=== PATIENT | male | born 1945 | race Caucasian/White ===

== ENCOUNTER → 2020-02-27 12:36 | Outpatient (CLI) | payer OTHER, SELFPAY ==
[2020-02-28 17:13] LABS: COVID19 Sendout Not Detected (Not Detect)
== END ==
PROVIDERS: Visit Provider Nurse Practitioner
DX: Z11.59 Encounter for screening for other viral diseases (principal)
CPT/HCPCS: 87635

== ENCOUNTER → 2020-03-01 08:37 | Outpatient (CLI) | payer OTHER, SELFPAY ==
--- NOTE | 2020-03-06 16:47 | PM.PFT.1 ---
Pulmonary Function Test Referral & Results Date Patient Seen: 03/01/20 Requesting provider: Patsy Melchor Indication: COPD Results: The spirometry demonstrates an FVC of 3.82 L which is 85% of predicted. The FEV1 was measured at 2.46 L which is 75% of predicted. The FEV1/FVC ratio was 65 which is 88% of predicted. Following the administration of bronchodilator there was no appreciable change. Lung volumes show an SVC of 3.9 L which is 83% of predicted. The diffusing capacity was measured at 19.18 which is 56% of predicted. The maximum voluntary ventilation was reduced Interpretation: This study demonstrates mild/moderate obstructive lung disease based on reduction FEV1. There is no evidence of benefit following bronchodilator administration There is also mild restrictive lung disease based on reduction SVC There is also [id number] reduction in diffusing capacity suggesting element of disease at the capillary alveolar level Clinical correlation suggested
== END ==
PROVIDERS: PCP Internal Medicine; Referring Provider Internal Medicine Cardiovascular Disease; Visit Provider Internal Medicine Cardiovascular Disease
DX: J44.9 Chronic obstructive pulmonary disease, unspecified (principal); Z87.891 Personal history of nicotine dependence
CPT/HCPCS: 94060; 94726; 94729

== ENCOUNTER → 2020-03-04 11:06 | Outpatient (CLI) | payer OTHER, SELFPAY ==
[2020-03-05 13:23] LABS: COVID19 Sendout Not Detected (Not Detect)
== END ==
PROVIDERS: PCP Internal Medicine; Visit Provider Nurse Practitioner
DX: Z11.59 Encounter for screening for other viral diseases (principal)
CPT/HCPCS: 87635

== ENCOUNTER → 2020-03-07 09:30 | Outpatient (CLI) | payer OTHER, SELFPAY ==
--- NOTE | 2020-03-08 04:26 | DI.NM.S_ITS ---
DATE OF SERVICE: 03/07/2020 PROCEDURE: Pharmacologic vasodilator stress and rest myocardial perfusion study with gating to assess ejection fraction and regional wall motion. INDICATIONS: The patient is a 74-year-old male with recent emergency room evaluation for dyspnea who had a positive troponin. REFERRING PROVIDER: Dr. Patsy Melchor CARDIAC STRESS: Per protocol, 0.4 mg of regadenoson was infused, augmented with walking on the treadmill. With this, the patient had a normal hemodynamic response and developed dyspnea but no chest discomfort. His resting ECG showed a right bundle branch block but no obvious Q waves. With exercise, there is accentuation of ST-segment depression in the anterior leads, extending somewhat into the lateral leads with 2 to 2.[address] depression in leads V4 and V5, concerning for myocardial ischemia. He had occasional PACs and PVCs but no complex ectopy. Per protocol, 24.5 mCi of Tc-99m Myoview was injected, and he was imaged 20 minutes later using a gated SPECT acquisition protocol. Earlier in the day, he was injected with 12.8 mCi of Tc-99m Myoview at rest and was imaged 25 minutes later, again using a similar imaging protocol. FINDINGS: 1. Raw Data: There is fair myocardial tracer uptake. There is slight motion noted on the post-stress images. The lung-heart ratio was normal at 0.39 with a normal TID ratio of 1.06. 2. Quantitated gated SPECT: Post-stress ejection fraction is estimated at 52% with moderate hypokinesis of the proximal and mid inferior and inferolateral wall that is less prominent near the apex. There are no other focal wall motion abnormalities. The resting images show a similar contraction pattern, although with some mild improvement in the inferolateral hypokinesis. 3. Post-stress supine images show a moderate perfusion defect throughout the inferior wall, extending into the inferolateral wall in the proximal segments. This defect persists on the prone images but is more localized to the inferolateral segments. The resting images show incomplete improvement in this perfusion defect with substantial reversibility in the mid and distal segments. IMPRESSION: 1. Abnormal myocardial perfusion study. 2. Moderate-sized, predominantly reversible but partially fixed perfusion defect involving the inferior wall and the proximal and mid inferolateral wall consistent with significant myocardial ischemia in the left circumflex distribution. 3. Mildly reduced left ventricular systolic function with inferior and inferolateral hypokinesis that improves slightly on the resting images, consistent with an ischemic response. 4. No angina but mild dyspnea with vasodilator pharmacologic stress with associated ST depression in the mid anterior and anterolateral leads, consistent with ischemia. There were occasional PACs and PVCs. Yazan Anderson - DEMETRIO/julián/janelle doc#: [id number]/job#: [id number] dd: 03/07/2020 17:29:00 dt: 03/08/2020 04:12:00 DICTATING MD/COPIES TO: Randy Curry MD; Patsy Melchor MD COPIES MNE: JIN;
== END ==
PROVIDERS: PCP Internal Medicine; Referring Provider Internal Medicine Cardiovascular Disease; Visit Provider Internal Medicine Cardiovascular Disease
DX: R94.39 Abnormal result of other cardiovascular function study (principal); R06.00 Dyspnea, unspecified; R06.02 Shortness of breath; I45.10 Unspecified right bundle-branch block; I50.9 Heart failure, unspecified
CPT/HCPCS: 78452; 93017; A9502; J2785

== ENCOUNTER → 2021-04-22 12:57 | Outpatient (CLI) | payer MEDICARE, OTHER, SELFPAY ==
--- NOTE | 2021-04-22 | DI.US.S_ITS ---
PROCEDURE: US CAROTID DOPPLER BI INDICATIONS: PERIPHERAL VASCULAR DISEASE TECHNIQUE: Color and pulse Doppler interrogation was performed of both carotid systems, with image documentation and velocity measurements. COMPARISON: None. FINDINGS: Stenosis calculations are based on SRU (Society of Radiologists in Ultrasound) criteria. Right side: Brachial blood pressure: 137/80 mm Hg. Common carotid artery peak systolic velocity: 99 cm/sec. Internal carotid artery peak systolic velocity: 159 cm/sec. Internal carotid artery end diastolic velocity: 58 cm/sec. External carotid artery peak systolic velocity: 148 cm/sec. ICA/CCA peak systolic ratio: 1.6 . Quijano scale imaging description: Moderate to severe plaque at the bifurcation Percent internal carotid artery stenosis: 50-69% . Vertebral artery: Flow direction is antegrade. Left side: Brachial blood pressure: 136/78 mm Hg. Common carotid artery peak systolic velocity: 130 cm/sec. Internal carotid artery peak systolic velocity: 162 cm/sec. Internal carotid artery end diastolic velocity: 48 cm/sec. External carotid artery peak systolic velocity: 148 cm/sec. ICA/CCA peak systolic ratio: 1.3 . Quijano scale imaging description: Moderate to severe plaque at the bifurcation Percent internal carotid artery stenosis: 50-69% . Vertebral artery: Flow direction is antegrade. IMPRESSION: 50-69% stenosis of the internal carotid arteries bilaterally. Dictated by: My Davenport M.D. on 04/22/2021 at 15:05 Approved by: My Davenport M.D. on 04/22/2021 at 15:06
== END ==
PROVIDERS: PCP Internal Medicine; Referring Provider Internal Medicine Cardiovascular Disease; Visit Provider Internal Medicine Cardiovascular Disease
DX: I73.9 Peripheral vascular disease, unspecified (principal); I65.23 Occlusion and stenosis of bilateral carotid arteries
CPT/HCPCS: 93880

== ENCOUNTER 2021-06-21 10:50 | Inpatient (IN) | payer MEDICARE, OTHER, SELFPAY ==
[2021-06-21] VITALS (26 sets, daily range): BP systolic 92–164; BP diastolic 64–94; PULSE 87–113; RESP 6–104; TEMP 36–37.2; O2SAT 94–100; BMI 20.6
--- NOTE | 2021-06-21 | DI.RAD.S_ITS ---
PROCEDURE: XR HIP W PEL IF DONE LT 2V INDICATIONS: LT HIP REPLACEMENT TECHNIQUE: 2 views of the hip were acquired. COMPARISON: [facility], [facility], XR HIP W PEL IF DONE LT 2V, 06/21/2021, 11:04. FINDINGS: Intraoperative images demonstrating left hip fixation. There is good anatomic alignment. Previous fracture lucencies are again identified. Hardware is intact. IMPRESSION: Left hip fixation as above. Dictated by: My Davenport M.D. on 06/21/2021 at 19:06 Approved by: My Davenport M.D. on 06/21/2021 at 19:07
--- NOTE | 2021-06-21 11:05 | DI.RAD.S_ITS ---
PROCEDURE: XR HIP W PEL IF DONE LT 2V INDICATIONS: fall shortened TECHNIQUE: AP pelvis with lateral view(s) of the left hip(s). COMPARISON: [facility], CR, XR CHEST 1V, 06/21/2021, 11:04. FINDINGS: Bones: There is a moderately displaced, mildly comminuted fracture of the left proximal femur within the intratrochanteric region. No additional fractures are detected. No suspicious lytic or blastic lesions are seen. Age-appropriate bony degenerative changes are seen. Soft tissues: The visualized bowel gas pattern is normal. No suspicious soft tissue calcifications. Atherosclerotic calcification is noted. IMPRESSION: Left intratrochanteric proximal femur fracture. If it would be helpful for clinical management decision making in this patient with this given history, please consider a dedicated hip CT for further evaluation. Dictated by: Miles Vargas M.D. on 06/21/2021 at 10:35 Approved by: Miles Vargas M.D. on 06/21/2021 at 10:36
--- NOTE | 2021-06-21 11:05 | DI.RAD.S_ITS ---
PROCEDURE: XR CHEST 1V INDICATIONS: fall TECHNIQUE: One view of the chest was acquired. COMPARISON: [facility], CR, XR HIP W PEL IF DONE LT 2V, 06/21/2021, 11:04. FINDINGS: Surgical changes and devices: None. Lungs and pleura: On this supine examination, no large pneumothorax or large pleural effusions are seen. No focal areas of lung consolidation are seen. Mediastinum: Mediastinal contours appear normal. Heart size is normal. Bones and chest wall: No suspicious bony lesions. At least the left 7th rib appears fractured laterally. Age-appropriate bony degenerative changes are seen. Overlying soft tissues appear unremarkable. IMPRESSION: Left 7th rib fracture, without an associated pneumothorax seen to the limits of this supine study. If clinically appropriate, please consider a follow-up chest CT for further evaluation. Dictated by: Miles Vargas M.D. on 06/21/2021 at 10:33 Approved by: Miles Vargas M.D. on 06/21/2021 at 10:35
[2021-06-21] MEDS: SODIUM CHLORIDE 0.9% 1,000 ML 150 ML IV (11:49)
[2021-06-21] MEDS: MORPHINE 2 MG/ML INJ IV (11:50)
[2021-06-21 12:08] LABS: Add Manual Diff / Slide Review NO; Basophils Absolute Auto 200 /uL (0-100); Basophils Percent Auto 1.4 % (0-2); Eosinophils Absolute Auto 0 /uL (0-450); Hemoglobin 10.5 g/dL (13.5-17.5); Lymphocytes Absolute Auto 500 /uL (1100-4500); Lymphocytes Percent Auto 4.9 % (25-40); Mean Corpuscular HGB Conc 33.7 % (30-36); Mean Corpuscular Hemoglobin 34.3 PG (26-34); Mean Corpuscular Volume 101.9 fL (80-100); Monocytes Absolute Auto 800 /uL (0-900); Monocytes Percent Auto 7.2 % (3-14); Neutrophils Absolute Auto 9100 /uL (1500-7000); Neutrophils Percent Auto 86.5 % (50-75); Platelet Count 300 X10^3/uL (150-400); Red Blood Cell Count 3.05 X10^6/uL (4.5-5.9); Red Cell Distribution Width 25.6 % (11.6-14.8); White Blood Cell Count 10.5 X10^3/uL (4.5-11.0)
[2021-06-21 12:18] LABS: Alanine Aminotransferase 52 IU/L (<50); Albumin 4.8 g/dL (3.5-5.0); Albumin Globulin Ratio 1.8 (1.0-2.8); Alkaline Phosphatase 61 U/L (38-126); Aspartate Aminotransferase 69 IU/L (17-59); BUN Creatinine Ratio 23.3 (6-22); Bilirubin Total 0.9 mg/dL (0.2-1.3); Blood Urea Nitrogen 20 mg/dL (9-20); Calcium 9.7 mg/dL (8.4-10.2); Carbon Dioxide 25 mmol/L (22-32); Chloride 103 mmol/L (98-107); Creatine Kinase 33 U/L (55-170); Estimated Glomerular Filt Rate > 60.0 mL/min (>60); Globulin 2.6 g/dL (1.7-4.1); Glucose 82 mg/dL (80-110); HEMOLYSIS < 15 (0-50); Lipase 123 U/L (23-300); Potassium 4.5 mmol/L (3.4-5.1); Sodium 141 mmol/L (137-145); Total Protein 7.4 g/dL (6.3-8.2)
[2021-06-21 12:29] LABS: Troponin I < 0.012 ng/mL (0.01-0.034)
--- NOTE | 2021-06-21 12:29 | ED_ITS ---
HPI - Fall General Chief Complaint: Trauma Stated Complaint: Fall / Lt hip pain Time Seen by Provider: 06/21/21 11:04 Source: patient and EMS Mode of arrival: EMS History of Present Illness HPI Narrative: Patient is a 76-year-old male with history of hypertension, hyperlipidemia frequent falls is presenting today with a ground level fall early this morning. He said he was getting up to go to the restroom when he slipped and fell. He s ays he falls frequently he did not hit his head or lose consciousness, he is not on anticoagulation but does take aspirin daily. He says he does have 1 drink daily but does not say that it is any more than that. He denies chest pain palpitations his pain is currently controlled however any time he tries to move he has significant pain in his left leg. His left leg is shortened. Related Data Home Medications Medication Instructions Recorded Confirmed CA PANTOTHENATE/FOLIC ACID/VIT 1 tab PO QDAY #0 06/23/12 06/21/21 (MULTIVITAMIN) LOVASTATIN (MEVACOR) 20 mg PO QDAYPM #0 06/23/12 06/21/21 aspirin 81 mg tablet,delayed 81 mg PO QDAY #0 06/23/12 06/21/21 release atorvastatin 75 mg PO BEDTIME 06/21/21 06/21/21 clopidogrel 75 mg tablet (Plavix) 75 mg PO DAILY 06/21/21 06/21/21 Previous Rx's Medication Instructions Recorded Pravastatin Sodium (PRAVACHOL) 10 mg PO HS #90 12/13/12 lisinopril 10 mg tablet 10 mg PO QDAY #90 12/13/12 Allergies Allergy/AdvReac Type Severity Reaction Status Date / Time No Known Drug Allergies Allergy Verified 06/21/21 11:07 Review of Systems Review of Systems Narrative: GENERAL: Denies chills, fatigue, malaise, fever, sweats, travel HEENT: Denies sinus pain, ear pain, sore throat, difficulty swallowing, neck pain RESPIRATORY: Denies dyspnea, cough, wheezing, hemoptysis, sputum. CARDIOVASCULAR: Denies chest pain, palpitations, orthopnea, edema GASTROINTESTINAL: Denies nausea, vomiting, abdominal pain, diarrhea, constipation, melena. : Denies dysuria, frequency, incontinence, hematuria, urinary retention, flank pain. MUSCULOSKELETAL: See HPI SKIN: No rash, no erythema, no pruritus NEUROLOGIC: Denies weakness, dizziness, headache, numbness, change in speech, confusion PSYCHIATRIC: No concerning psychosocial issues. 12 point review of systems is negative except for those stated above and HPI Patient History Medical History (Updated 06/21/21 @ 18:29 by Dee Reyna RN) CAD (coronary artery disease) HTN (hypertension) Hyperlipidemia Social History household members: none Smoking Status: Former smoker alcohol intake: current Exam Initial Vital Signs Initial Vital Signs: Vital Signs Pulse Rate 101 H 06/21/21 10:57 Blood Pressure 135/88 06/21/21 10:57 Pulse Oximetry 95 06/21/21 10:57 GENERAL: Thin 76-year-old maleand in no acute distress. HEENT: Head atraumatic,EOMI, pupils reactive, face symmetric, moist mucous membranes CARDIOVASCULAR: Regular rate and rhythm without murmurs, rubs or gallops. RESPIRATORY: Breath sounds equal bilaterally, no wheezes rales or rhonchi. ABDOMEN: Soft, nontender. Normoactive bowel sounds all 4 quadrants. No guarding or rebound. EXTREMITIES: Normal range of motion, no clubbing or edema. Pain left hip no contusion left slightly shorter, distal pedal pulse intact NEUROLOGICAL: Alert and oriented x4. SKIN: Warm, dry, no laceration, no petechiae, no rashes or lesions. Course Orders Ordered: ED Orders 06/21/21 11:05 XR chest 1V Stat XR hip w pel if done LT 2V Stat EKG-12 Lead Stat 06/21/21 11:50 Complete Blood Count AUTO DIFF Stat Comprehensive Metabolic Panel Stat ETOH [Ethanol (ETOH)] Stat Lipase Stat Troponin & CK Cardiac Panel Stat 06/21/21 12:00 Urine Microscopic Stat 06/21/21 12:10 COVID19 - ADMIT ([employer] swab/PCR) Stat RSV [Respiratory Syncytial Virus] Stat Acetaminophen (Acetaminophen 325 Mg Tablet) 650 mg PO Q6HR PRN PRN Reason: Fever/Mild Pain (1-3) Albuterol/Ipratropium (Albuterol/Ipratropium 3 Ml Ampul) 3 ml INH RTQ4HR PRN PRN Reason: Shortness Of Breath Enoxaparin Sodium (Enoxaparin 40 Mg/0.4 Ml Syringe) 40 mg SUBCUT DAILY LEE Fentanyl (Fentanyl 100 Mcg/2 Ml Inj) 0 mcg IV Q5MIN PRN PRN Reason: Pain, Severe (7-10) Folic Acid (Folic Acid 1 Mg Tablet) 1 mg PO DAILY LEE Hydromorphone HCl (Hydromorphone 2 Mg Inj) 0 mg IV Q5MIN PRN PRN Reason: Pain, Mild (1-3) Sodium Chloride (Normal Saline 0.9%) 1,000 mls @ 150 mls/hr IV CONT LEE Last Infusion: 06/21/21 15:31 Dose: 0 mls/hr Documented by: Admin: 06/21/21 11:49 Dose: 150 mls/hr Documented by: DYLAN Lactated Ringer's (Lactated Ringers) 1,000 mls @ 42 mls/hr IV CONT LEE Last Admin: 06/21/21 18:30 Dose: 42 mls/hr Documented by: Infusion: 06/21/21 18:30 Dose: 42 mls/hr Documented by: Admin: 06/21/21 16:50 Dose: 42 mls/hr Documented by: CAMI Lactated Ringer's (Lactated Ringers) 1,000 mls @ 120 mls/hr IV CONT [facility] Lorazepam (Lorazepam 1 Mg Tablet) 0 mg PO CIWAPRN PRN; Protocol PRN Reason: Alcohol Withdrawal Lorazepam (Lorazepam 2 Mg/Ml Inj) 0.25 mg IV NOW PRN PRN Reason: withdrawal Morphine Sulfate (Morphine 2 Mg/Ml Inj) 2 mg IV Q4HR PRN PRN Reason: Pain, Moderate (4-6) Multivitamins (Multivitamin 1 Tablet) 1 tab PO DAILY [facility] Naloxone HCl (Naloxone 0.4 Mg/Ml Vial) 0.2 mg IV Q2MIN PRN PRN Reason: Opiate Reversal Ondansetron HCl (Ondansetron 4 Mg/2 Ml Inj) 4 mg IV Q8HR PRN PRN Reason: Nausea And Vomiting Oxycodone HCl (Oxycodone Ir 5 Mg Tablet) 5 mg PO Q6HR PRN PRN Reason: Pain, Moderate (4-6) Oxycodone HCl (Oxycodone Ir 5 Mg Tablet) 5 mg PO PACUNOW PRN PRN Reason: Mild or moderate pain Thiamine HCl (Thiamine 100 Mg Tablet) 100 mg PO DAILY [facility] Stop: 06/25/21 09:01 Discontinued Medications Acetaminophen (Acetaminophen 325 Mg Tablet) 975 mg PO NOW ONE Stop: 06/21/21 15:44 Last Admin: 06/21/21 16:31 Dose: 975 mg Documented by: CAMI Bupivacaine Liposome (Bupivacaine Liposome 266 Mg/20 Ml Vial) 266 mg INJ INTRA- OP ONE Stop: 06/21/21 17:07 Last Admin: 06/21/21 17:47 Dose: 266 mg Documented by: ARLET Cefazolin Sodium/Dextrose (Cefazolin 2 Gm/20 Ml Syringe) 2 gm IV NOW ONE Stop: 06/21/21 17:07 Last Admin: 06/21/21 17:12 Dose: 2 gm Documented by: ASHLEY Bupivacaine HCl 60 ml/ (Epinephrine HCl 0.3 mg) 0 ml INJ INTRA-OP ONE Stop: 06/21/21 17:07 Bupivacaine HCl 30 ml/ (Epinephrine HCl 0.15 mg) 0 ml INJ NOW ONE Stop: 06/21/21 17:48 Last Admin: 06/21/21 17:47 Dose: 30 ml Documented by: ARLET Gabapentin (Gabapentin 300 Mg Capsule) 300 mg PO NOW ONE Stop: 06/21/21 15:44 Last Admin: 06/21/21 16:31 Dose: 300 mg Documented by: CAMI Morphine Sulfate (Morphine 2 Mg/Ml Inj) 2 mg IV NOW ONE Stop: 06/21/21 11:06 Last Admin: 06/21/21 11:50 Dose: 2 mg Documented by: DYLAN Vital Signs Vital signs: Vital Signs - 8 hr 06/21/21 10:57 06/21/21 11:00 06/21/21 11:03 Temperature 98.7 F Pulse Rate 101 H 102 H 104 H Respiratory Rate 104 H Blood Pressure 135/88 139/89 135/88 Pulse Oximetry 95 98 99 06/21/21 11:30 06/21/21 11:54 06/21/21 12:00 Temperature Pulse Rate 95 H 102 H 104 H Respiratory Rate Blood Pressure 145/81 H 137/74 Pulse Oximetry 99 100 97 06/21/21 12:15 06/21/21 12:30 06/21/21 13:00 Temperature Pulse Rate 102 H 98 H 104 H Respiratory Rate 13 34 H Blood Pressure 143/70 H Pulse Oximetry 98 98 94 06/21/21 13:30 Temperature Pulse Rate 104 H Respiratory Rate 22 Blood Pressure 145/77 H Pulse Oximetry 100 - Fall Lab Data Result diagrams: 06/21/21 11:50 06/21/21 11:50 Labs: Lab Results 06/21/21 06/21/21 06/21/21 Range/Units 11:50 11:50 11:50 WBC 10.5 (4.5-11.0) X10^3/uL RBC 3.05 L (4.5-5.9) X10^6/uL Hgb 10.5 L (13.5-17.5) g/dL Hct 31.0 L (41-53) % MCV 101.9 H (80-100) fL MCH 34.3 H (26-34) PG MCHC 33.7 (30-36) % RDW 25.6 H (11.6-14.8) % Plt Count 300 (150-400) X10^3/uL Neut % (Auto) 86.5 H (50-75) % Lymph % (Auto) 4.9 L (25-40) % Bradley % (Auto) 7.2 (3-14) % Eos % (Auto) 0.0 L (2-4) % Baso % (Auto) 1.4 (0-2) % Neut # (Auto) 9100 H (0253-0542) /uL Lymph # (Auto) 500 L (1987-7645) /uL Bradley # (Auto) 800 (0-900) /uL Eos # (Auto) 0 (0-450) /uL Baso # (Auto) 200 H (0-100) /uL RBC Morphology Not Reportable Hypochromasia 1+ H Poikilocytosis 2+ H Anisocytosis 2+ H Sodium 141 (137-145) mmol/L Potassium 4.5 (3.4-5.1) mmol/L Chloride 103 (98-107) mmol/L Carbon Dioxide 25 (22-32) mmol/L BUN 20 (9-20) mg/dL Creatinine 0.86 (0.66-1.25) mg/dL Estimated GFR > 60.0 (>60) mL/min BUN/Creatinine Ratio 23.3 H (6-22) Glucose 82 (80-110) mg/dL Calcium 9.7 (8.4-10.2) mg/dL Total Bilirubin 0.9 (0.2-1.3) mg/dL AST 69 H (17-59) IU/L ALT 52 H (<50) IU/L Alkaline Phosphatase 61 (38-126) U/L Total Creatine Kinase 33 L (55-170) U/L CK-MB (CK-2) TNP CK-MB (CK-2) Rel Index TNP Troponin I < 0.012 (0.01-0.034) ng/mL Total Protein 7.4 (6.3-8.2) g/dL Albumin 4.8 (3.5-5.0) g/dL Globulin 2.6 (1.7-4.1) g/dL Albumin/Globulin Ratio 1.8 (1.0-2.8) Lipase 123 (23-300) U/L Urine RBC (0-5/HPF) Urine WBC (0-5/HPF) Ur Squamous Epith Cells (0-5/HPF) Amorphous Sediment Urine Bacteria (None) Hyaline Casts (None) Urine Mucus (Negative) Ur Culture Indicated? Ethyl Alcohol 124 H ( - 10) mg/dL SARS-CoV-2 (PCR) (Negative) RSV (PCR) (Not Detect) 06/21/21 06/21/21 06/21/21 Range/Units 12:00 12:10 12:10 WBC (4.5-11.0) X10^3/uL RBC (4.5-5.9) X10^6/uL Hgb (13.5-17.5) g/dL Hct (41-53) % MCV (80-100) fL MCH (26-34) PG MCHC (30-36) % RDW (11.6-14.8) % Plt Count (150-400) X10^3/uL Neut % (Auto) (50-75) % Lymph % (Auto) (25-40) % Bradley % (Auto) (3-14) % Eos % (Auto) (2-4) % Baso % (Auto) (0-2) % Neut # (Auto) (3303-4504) /uL Lymph # (Auto) (4859-6770) /uL Bradley # (Auto) (0-900) /uL Eos # (Auto) (0-450) /uL Baso # (Auto) (0-100) /uL RBC Morphology Hypochromasia Poikilocytosis Anisocytosis Sodium (137-145) mmol/L Potassium (3.4-5.1) mmol/L Chloride (98-107) mmol/L Carbon Dioxide (22-32) mmol/L BUN (9-20) mg/dL Creatinine (0.66-1.25) mg/dL Estimated GFR (>60) mL/min BUN/Creatinine Ratio (6-22) Glucose (80-110) mg/dL Calcium (8.4-10.2) mg/dL Total Bilirubin (0.2-1.3) mg/dL AST (17-59) IU/L ALT (<50) IU/L Alkaline Phosphatase (38-126) U/L Total Creatine Kinase (55-170) U/L CK-MB (CK-2) CK-MB (CK-2) Rel Index Troponin I (0.01-0.034) ng/mL Total Protein (6.3-8.2) g/dL Albumin (3.5-5.0) g/dL Globulin (1.7-4.1) g/dL Albumin/Globulin Ratio (1.0-2.8) Lipase (23-300) U/L Urine RBC None seen (0-5/HPF) Urine WBC 1-5/hpf (0-5/HPF) Ur Squamous Epith Cells 1-5 /hpf (0-5/HPF) Amorphous Sediment 1+ Urine Bacteria None seen (None) Hyaline Casts 1-5/lpf (None) Urine Mucus 1+ H (Negative) Ur Culture Indicated? Cult not indicated Ethyl Alcohol ( - 10) mg/dL SARS-CoV-2 (PCR) Negative (Negative) RSV (PCR) Detected (Not Detect) Urine Dip Bedside Urine Glucose Negative Bedside Urine Bilirubin - Negative Bedside Urine Ketone +/- 5 Urine Specific Arnett 1.025 Bedside Urine Occult Blood - Negative Bedside Urine pH 5.5 Bedside Urine Protein +/- 15 Bedside Urine Urobilinogen - Negative Bedside Urine Nitrite - Negative Bedside Urine Leukocytes - Negative Esterase Imaging Data Chest x-ray: Radiologist's Impression: PROCEDURE:? XR CHEST 1V ? INDICATIONS:? fall ? TECHNIQUE:? One view of the chest was acquired.? ? COMPARISON:? [facility], CR, XR HIP W PEL IF DONE LT 2V, 06/21/2021, 11:04. ? FINDINGS:? ? Surgical changes and devices:? None.? ? Lungs and pleura:? On this supine examination, no large pneumothorax or large pleural effusions are seen. No focal areas of lung consolidation are seen. ? Mediastinum:? Mediastinal contours appear normal.? Heart size is normal.? ? Bones and chest wall:? No suspicious bony lesions.? At least the left 7th rib appears fractured laterally.? Age-appropriate bony degenerative changes are seen.? Overlying soft tissues appear unremarkable.? IMPRESSION:? Left 7th rib fracture, without an associated pneumothorax seen to the limits of this supine study.? ? If clinically appropriate, please consider a follow-up chest CT for further evaluation.? ? Dictated by: Miles Vargas M.D. on 06/21/2021 at 10:33 ? ? Extremity x-ray #1: Radiologist's Impression: PROCEDURE:? XR HIP W PEL IF DONE LT 2V ? INDICATIONS:? fall shortened ? TECHNIQUE:? AP pelvis with lateral view(s) of the left hip(s).? ? COMPARISON:? [facility], CR, XR CHEST 1V, 06/21/2021, 11:04. ? FINDINGS:? ? Bones:? There is a moderately displaced, mildly comminuted fracture of the left proximal femur within the intratrochanteric region. ? No additional fractures are detected. No suspicious lytic or blastic lesions are seen.? Age-appropriate bony degenerative changes are seen.? ? Soft tissues:? The visualized bowel gas pattern is normal.? No suspicious soft tissue calcifications.? Atherosclerotic calcification is noted.? ? ? IMPRESSION:? Left intratrochanteric proximal femur fracture. ? If it would be helpful for clinical management decision making in this patient with this given history, please consider a dedicated hip CT for further evaluation. ? Dictated by: Miles Vargas M.D. on 06/21/2021 at 10:35 ? ? ECG Data Interpretation: Normal sinus rhythm rate 96 [place] interval 162 QRS [address] changes no priors to compare MDM Narrative Medical decision making narrative: Sounds as though patient had a mechanical fall he likely drinks more alcohol than he says. Dr. Oakley updated patient's symptoms test results and is aware recommends admitting hospitalist Dr. Be, in ED to see evaluated patient Discharge Plan Departure Patient Disposition: Admitted As Inpatient Clinical Impression: Closed fracture of left hip Admit Date/Time: 06/21/21 13:32 Admit Provider: Gilson Be
[2021-06-21 12:37] LABS: Amorphous Sediment Urine 1+; Bacteria Urine None Seen; Culture Indicated Urine Cult Not Indicated; Hyaline Casts Urine 1-5/LPF; Mucus Urine 1+ (Negative); RBC Urine None Seen (0-5/HPF); Squamous Epithelial Cell Urine 1-5 /HPF (0-5/HPF); WBC Urine 1-5/HPF (0-5/HPF)
[2021-06-21 12:38] LABS: Anisocytosis 2+; Hypochromasia 1+; Poikilocytosis 2+
[2021-06-21 13:00] LABS: COVID19 - ADMIT (NP swab/PCR) Negative (Negative)
[2021-06-21 13:08] LABS: Respiratory Syncytial Virus Detected (Not Detect)
[2021-06-21 13:47] LABS: Ethanol (ETOH) 124 mg/dL
--- NOTE | 2021-06-21 14:25 | DI.CT.S_ITS ---
PROCEDURE: CT HEAD/BRAIN WO CON INDICATIONS: fall etoh TECHNIQUE: Noncontrast 4.5 mm thick angled axial sections acquired from the foramen magnum to the vertex, with coronal and sagittal reformats. For radiation dose reduction, the following was used: automated exposure control, adjustment of mA and/or kV according to patient size. COMPARISON: None. FINDINGS: Image quality: Excellent. CSF spaces: Basal cisterns are patent. No extra-axial fluid collections. The ventricles are symmetric in size and shape. Brain: No intracranial bleeds or masses. There is cerebral volume loss for age, with resultant ventricular and sulcal prominence. There are periventricular and deep white matter chronic small vessel ischemic changes. There is intracranial internal carotid artery atherosclerosis. Skull and face: A metallic scalp foreign body can be seen on the right, as on series 3, image 11 measuring 2-3 mm. Calvarium and visualized facial bones appear intact, without suspicious lesions. Sinuses: Visualized sinuses and mastoids are clear. IMPRESSION: No acute intracranial hemorrhage is seen. No acute intracranial process is seen. Dictated by: Miles Vargas M.D. on 06/21/2021 at 14:06 Approved by: Miles Vargas M.D. on 06/21/2021 at 14:07
[2021-06-21] MEDS: ACETAMINOPHEN 325 MG TABLET 975 MG PO ×2 (16:31→20:51)
[2021-06-21] MEDS: GABAPENTIN 300 MG CAPSULE PO (16:31)
[2021-06-21] MEDS: LACTATED RINGERS 1,000 ML 42 ML IV ×2 (16:50→18:30)
--- NOTE | 2021-06-21 16:59 | P.HP_ITS ---
History of Present Illness History of Present Illness Date Patient Seen: 06/21/21 Time Patient Seen: 16:59 Date of Onset of Symptoms: 06/21/21 Chief complaint: Fall / Lt hip pain Narrative: Follow-up this is a 76-year-old gentleman who fell today and noted the acute onset of severe left hip pain. Has a history of chronic alcoholism and also notes some also notes that he has a history of coronary artery disease with and has fairly poor blood flow to his legs bilaterally. He was seen in the emergency room and a left intertrochanteric hip fracture was diagnosed. Patient History Comment: History of coronary artery disease and peripheral vascular disease, history of chronic alcoholism Family & Social History Social History: household members none Safety & Behavioral: Feels Safe in Current Yes Environment Been Physically Hurt or No Threatened By a Person Suicidal Ideation Description None Suicide Plan Description No Plan Tobacco & Substance use: Tobacco type cigarettes Smoking Status Former smoker alcohol intake current alcohol intake frequency 0-2 drinks per day Substance Use Type does not use Meds Home Medications and Allergies Home Medications Medication Instructions Recorded Confirmed Type CA PANTOTHENATE/FOLIC ACID/VIT 1 tab PO QDAY #0 06/23/12 06/21/21 History (MULTIVITAMIN) LOVASTATIN (MEVACOR) 20 mg PO QDAYPM #0 06/23/12 06/21/21 History aspirin 81 mg tablet,delayed 81 mg PO QDAY #0 06/23/12 06/21/21 History release Pravastatin Sodium (PRAVACHOL) 10 mg PO HS #90 12/13/12 06/21/21 Rx lisinopril 10 mg tablet 10 mg PO QDAY #90 12/13/12 06/21/21 Rx atorvastatin 75 mg PO BEDTIME 06/21/21 06/21/21 History clopidogrel 75 mg tablet (Plavix) 75 mg PO DAILY 06/21/21 06/21/21 History Allergies Allergy/AdvReac Type Severity Reaction Status Date / Time No Known Drug Allergies Allergy Verified 06/21/21 11:07 Review of Systems Review of Systems Narrative: He notes a history of multiple falls, he notes ringing in his ears, he notes the has poor circulation to his legs bilaterally. He has a history of cardiac stents. He lives by himself without support at home. He is retired from the . Exam Vital Signs (past 8 hours): - 06/21/21 10:57 06/21/21 11:00 06/21/21 11:03 Temperature 98.7 F Pulse Rate 101 H 102 H 104 H Respiratory Rate 104 H Blood Pressure 135/88 139/89 135/88 Pulse Oximetry 95 98 99 06/21/21 11:30 06/21/21 11:54 06/21/21 12:00 Temperature Pulse Rate 95 H 102 H 104 H Respiratory Rate Blood Pressure 145/81 H 137/74 Pulse Oximetry 99 100 97 06/21/21 12:15 06/21/21 12:30 06/21/21 13:00 Temperature Pulse Rate 102 H 98 H 104 H Respiratory Rate 13 34 H Blood Pressure 143/70 H Pulse Oximetry 98 98 94 06/21/21 13:30 06/21/21 14:00 06/21/21 14:30 Temperature Pulse Rate 104 H 104 H 100 H Respiratory Rate 22 22 16 Blood Pressure 145/77 H 110/64 134/67 Pulse Oximetry 100 99 98 06/21/21 16:33 Temperature 98.6 F Pulse Rate 103 H Respiratory Rate 19 Blood Pressure 164/94 H Pulse Oximetry 100 Oxygen Delivery Method Room Air Oxygen Flow Rate 0 Narrative Exam Narrative: Is alert he is oriented HEENT is benign lungs are clear cor regular rate and rhythm abdomen is soft and benign examination of his left lower extremity shows severe pain with any attempted range of motion in his left hip he has slight external rotation of his hip his foot is cool but there is some capillary refill pulses are diminished, he can fire his toe flexors and extensors trace motion has some mild numbness in the left foot Objective Labs Result Diagrams: 06/21/21 11:50 06/21/21 11:50 Labs: Laboratory Results - last 24 hr 06/21/21 06/21/21 06/21/21 11:50 11:50 11:50 WBC 10.5 RBC 3.05 L Hgb 10.5 L Hct 31.0 L MCV 101.9 H MCH 34.3 H MCHC 33.7 RDW 25.6 H Plt Count 300 Neut % (Auto) 86.5 H Lymph % (Auto) 4.9 L [place] % (Auto) 7.2 Eos % (Auto) 0.0 L Baso % (Auto) 1.4 Neut # (Auto) 9100 H Lymph # (Auto) 500 L [place] # (Auto) 800 Eos # (Auto) 0 Baso # (Auto) 200 H RBC Morphology Not Reportable Hypochromasia 1+ H Poikilocytosis 2+ H Anisocytosis 2+ H Sodium 141 Potassium 4.5 Chloride 103 Carbon Dioxide 25 BUN 20 Creatinine 0.86 Estimated GFR > 60.0 BUN/Creatinine Ratio 23.3 H Glucose 82 Calcium 9.7 Total Bilirubin 0.9 AST 69 H ALT 52 H Alkaline Phosphatase 61 Total Creatine Kinase 33 L CK-MB (CK-2) TNP CK-MB (CK-2) Rel Index TNP Troponin I < 0.012 Total Protein 7.4 Albumin 4.8 Globulin 2.6 Albumin/Globulin Ratio 1.8 Lipase 123 Urine RBC Urine WBC Ur Squamous Epith Cells Amorphous Sediment Urine Bacteria Hyaline Casts Urine Mucus Ur Culture Indicated? Ethyl Alcohol 124 H SARS-CoV-2 (PCR) RSV (PCR) 06/21/21 06/21/21 06/21/21 12:00 12:10 12:10 WBC RBC Hgb Hct MCV MCH MCHC RDW Plt Count Neut % (Auto) Lymph % (Auto) [place] % (Auto) Eos % (Auto) Baso % (Auto) Neut # (Auto) Lymph # (Auto) [place] # (Auto) Eos # (Auto) Baso # (Auto) RBC Morphology Hypochromasia Poikilocytosis Anisocytosis Sodium Potassium Chloride Carbon Dioxide BUN Creatinine Estimated GFR BUN/Creatinine Ratio Glucose Calcium Total Bilirubin AST ALT Alkaline Phosphatase Total Creatine Kinase CK-MB (CK-2) CK-MB (CK-2) Rel Index Troponin I Total Protein Albumin Globulin Albumin/Globulin Ratio Lipase Urine RBC None seen Urine WBC 1-5/hpf Ur Squamous Epith Cells 1-5 /hpf Amorphous Sediment 1+ Urine Bacteria None seen Hyaline Casts 1-5/lpf Urine Mucus 1+ H Ur Culture Indicated? Cult not indicated Ethyl Alcohol SARS-CoV-2 (PCR) Negative RSV (PCR) Detected X-rays show a left intertrochanteric hip fracture with slight displacement Assessment & Plan Assessment and plan (1) Closed fracture of left hip: Status: Acute Plan I recommended left hip open reduction internal fixation with a dynamic hip screw. The procedure alternatives risks benefits complications were discussed in detail. He understands and agrees in regard to proceed with that on an urgent basis. He does have a history of RSV and is COVID negative. He has a chronic alcoholic who is actively drinking he is currently on the medic and medicine service and they have him on a CIWA protocol. Time Spent With Patient Critical Care time: I spent a total of [] minutes of critical care time on this patient's care today; this time is exclusive of procedural time. Quality VTE Deep Vein Thrombosis/Pulmonary Embolism Present on Admission: No
--- NOTE | 2021-06-21 17:07 | P.HP_ITS ---
History of Present Illness History of Present Illness Date Patient Seen: 06/21/21 Time Patient Seen: 15:30 Chief complaint: Fall / Lt hip pain Narrative: Mr. Anderson is a 76M with PMH HTN, HL, CAD, COPD who presents with a fall. He states he got up to use the restroom and then fell. He does not believe he lost consciousness, he did not have a head strike. He says he has vertigo chronically. He drinks daily, and appears mildly intoxicated. He take aspirin and plavix daily. He has not had, nor is having any chest pain or shortness of breath or any recent COPD exacerbation. He was unable to ambulate after the fall. He called EMS In the ED workup was done, vitals notable for patient afebrile, heart rate in 100s. Labs notable for WBC 10.5, hgb 10.5, plts 300. creatinine 0.86. troponin negative, ast/alt 69/52. EtOH 124. UA negative. COVID negative. RSV positive. Chest xray shows left 7th rib fracture. Hip xray shows left intratrochanteric femur fracture. He was given pain medications. Ortho consulted. He was admitted for further treatment. Family history: mother with thyroid cancer Social work: drinks daily, former smoker Patient History Family & Social History Social History: household members none Safety & Behavioral: Feels Safe in Current Yes Environment Been Physically Hurt or No Threatened By a Person Suicidal Ideation Description None Suicide Plan Description No Plan Tobacco & Substance use: Tobacco type cigarettes Smoking Status Former smoker alcohol intake current alcohol intake frequency 0-2 drinks per day Substance Use Type does not use Meds Home Medications and Allergies Home Medications Medication Instructions Recorded Confirmed Type CA PANTOTHENATE/FOLIC ACID/VIT 1 tab PO QDAY #0 06/23/12 06/21/21 History (MULTIVITAMIN) LOVASTATIN (MEVACOR) 20 mg PO QDAYPM #0 06/23/12 06/21/21 History aspirin 81 mg tablet,delayed 81 mg PO QDAY #0 06/23/12 06/21/21 History release Pravastatin Sodium (PRAVACHOL) 10 mg PO HS #90 12/13/12 06/21/21 Rx lisinopril 10 mg tablet 10 mg PO QDAY #90 12/13/12 06/21/21 Rx atorvastatin 75 mg PO BEDTIME 06/21/21 06/21/21 History clopidogrel 75 mg tablet (Plavix) 75 mg PO DAILY 06/21/21 06/21/21 History Allergies Allergy/AdvReac Type Severity Reaction Status Date / Time No Known Drug Allergies Allergy Verified 06/21/21 11:07 Review of Systems Review of Systems Narrative: 14 systems reviewed and negative aside from what is noted in HPI Exam Vital Signs (past 8 hours): - 06/21/21 10:57 06/21/21 11:00 06/21/21 11:03 Temperature 98.7 F Pulse Rate 101 H 102 H 104 H Respiratory Rate 104 H Blood Pressure 135/88 139/89 135/88 Pulse Oximetry 95 98 99 06/21/21 11:30 06/21/21 11:54 06/21/21 12:00 Temperature Pulse Rate 95 H 102 H 104 H Respiratory Rate Blood Pressure 145/81 H 137/74 Pulse Oximetry 99 100 97 06/21/21 12:15 06/21/21 12:30 06/21/21 13:00 Temperature Pulse Rate 102 H 98 H 104 H Respiratory Rate 13 34 H Blood Pressure 143/70 H Pulse Oximetry 98 98 94 06/21/21 13:30 06/21/21 14:00 06/21/21 14:30 Temperature Pulse Rate 104 H 104 H 100 H Respiratory Rate 22 22 16 Blood Pressure 145/77 H 110/64 134/67 Pulse Oximetry 100 99 98 06/21/21 16:33 Temperature 98.6 F Pulse Rate 103 H Respiratory Rate 19 Blood Pressure 164/94 H Pulse Oximetry 100 Oxygen Delivery Method Room Air Oxygen Flow Rate 0 Narrative Exam Narrative: GEN: no acute distress HEENT: moist mucous membranes, PERRL NECK: trachea midline, no JVD CV: regular rate and rhythm, no murmurs PULM: clear bilaterally, no wheezes, rhonchi, rales ABD: soft, nontender, nondistended, no organomegaly, normal bowel sounds EXT: warm and well perfused, no edema, left hip pain, left foot numbness mild, cool left foot with present pulses NEURO: awake, alert, oriented PSYCH: mildly intoxicated, pleasant Objective Labs Result Diagrams: 06/21/21 11:50 06/21/21 11:50 Labs: Laboratory Results - last 24 hr 06/21/21 06/21/21 06/21/21 11:50 11:50 11:50 WBC 10.5 RBC 3.05 L Hgb 10.5 L Hct 31.0 L MCV 101.9 H MCH 34.3 H MCHC 33.7 RDW 25.6 H Plt Count 300 Neut % (Auto) 86.5 H Lymph % (Auto) 4.9 L [place] % (Auto) 7.2 Eos % (Auto) 0.0 L Baso % (Auto) 1.4 Neut # (Auto) 9100 H Lymph # (Auto) 500 L [place] # (Auto) 800 Eos # (Auto) 0 Baso # (Auto) 200 H RBC Morphology Not Reportable Hypochromasia 1+ H Poikilocytosis 2+ H Anisocytosis 2+ H Sodium 141 Potassium 4.5 Chloride 103 Carbon Dioxide 25 BUN 20 Creatinine 0.86 Estimated GFR > 60.0 BUN/Creatinine Ratio 23.3 H Glucose 82 Calcium 9.7 Total Bilirubin 0.9 AST 69 H ALT 52 H Alkaline Phosphatase 61 Total Creatine Kinase 33 L CK-MB (CK-2) TNP CK-MB (CK-2) Rel Index TNP Troponin I < 0.012 Total Protein 7.4 Albumin 4.8 Globulin 2.6 Albumin/Globulin Ratio 1.8 Lipase 123 Urine RBC Urine WBC Ur Squamous Epith Cells Amorphous Sediment Urine Bacteria Hyaline Casts Urine Mucus Ur Culture Indicated? Ethyl Alcohol 124 H SARS-CoV-2 (PCR) RSV (PCR) 06/21/21 06/21/21 06/21/21 12:00 12:10 12:10 WBC RBC Hgb Hct MCV MCH MCHC RDW Plt Count Neut % (Auto) Lymph % (Auto) [place] % (Auto) Eos % (Auto) Baso % (Auto) Neut # (Auto) Lymph # (Auto) [place] # (Auto) Eos # (Auto) Baso # (Auto) RBC Morphology Hypochromasia Poikilocytosis Anisocytosis Sodium Potassium Chloride Carbon Dioxide BUN Creatinine Estimated GFR BUN/Creatinine Ratio Glucose Calcium Total Bilirubin AST ALT Alkaline Phosphatase Total Creatine Kinase CK-MB (CK-2) CK-MB (CK-2) Rel Index Troponin I Total Protein Albumin Globulin Albumin/Globulin Ratio Lipase Urine RBC None seen Urine WBC 1-5/hpf Ur Squamous Epith Cells 1-5 /hpf Amorphous Sediment 1+ Urine Bacteria None seen Hyaline Casts 1-5/lpf Urine Mucus 1+ H Ur Culture Indicated? Cult not indicated Ethyl Alcohol SARS-CoV-2 (PCR) Negative RSV (PCR) Detected Assessment & Plan Assessment & Plan narrative: Mr. Anderson is a 76M with PMH CAD, COPD, EtOH abuse who comes in with a fall found to have hip fracture and rib fracture. 1. Left hip fracture -patient NPO -pain medications ordered -orthopedic surgery consulted -hold aspirin/plavix -PT/OT ordered 2. Left rib fracture -no significant respiratory distress -pain medications as above -incentive spirometry to avoid splinting 3. COPD -no exacerbation -prn nebs 4. CAD -hold aspirin,plavix for now 5. HTN -restart medications tomorrow 6. EtOH abuse -not currently in withdrawal -ordered for CIWA protocol, prn ativan -ordered mvi, thiamine, folate CODE: DNR Proxy: Gia Crystal, daughter I have utilized all available resources to reconcile patient's home medications. Time Spent With Patient Critical Care time: I spent a total of [] minutes of critical care time on this patient's care to day; this time is exclusive of procedural time. Quality VTE Deep Vein Thrombosis/Pulmonary Embolism Present on Admission: No
--- NOTE | 2021-06-21 17:07 | PM.OP.1 ---
Operative Date/Time/Diagnoses Date of procedure: 06/21/21 Time of procedure: 17:08 Pre-op diagnosis: Left intertrochanteric hip fracture Post-op diagnosis: same Procedure & Clinicians Procedure: ORIF left intertrochanteric hip fracture with dynamic hip screw Same procedure as scheduled: Yes Indications: This is a 76-year-old gentleman who fell over and sustained a left displaced intertrochanteric hip fracture is brought to the operating room for open reduction internal fixation with a dynamic hip screw. Procedure alternatives risks benefits and complications discussed with the patient. Surgeon: Allison Oakley Click Yes if Unassisted: Yes Anesthesia Type: General Operative Notes Findings: Left intertrochanteric hip fracture, soft bone, adequate reduction Closure Type: primary Specimen(s): none sent Prosthetic devices, grafts, tissues, transplants, or devices: Dynamic hip screw a left with 4 hole side plate 135 degree Estimated Blood Loss (mL): 250 Blood products transfused: none Procedure in detail: Patient brought the operating room he underwent the induction of a general anesthesia. Time-out was performed. He was given IV antibiotics. Was carefully transferred to the fracture table and the fracture was meticulously reduced and confirmed with fluoroscopically. He was prepped and draped in standard sterile fashion. Lateral skin incision was made dissection was carried out through skin and subcutaneous tissues. Gelpi retractors were placed. Fascia was incised. Vastus lateralis was stripped some from posteriorly and retracted anteriorly. A pin was placed centrally in the left femoral head. Guide was used to directed. Location Was confirmed with AP and lateral fluoro and the compression screw was placed. Four hole side plate was subsequently placed. It was filled using standard AO technique. AP and lateral image confirmed acceptable reduction and adequate positioning of lag screw, hardware, and acceptable reduction of the fracture. wound was meticulously irrigated with normal saline. It Was injected with Marcaine and Exparel and the wound was closed with interrupted Vicryl skin veronika and an Aquacel. Local was extensively injected for help with postoperative pain control. Complications: none Post-operative Condition: stable Disposition: Acute Care Plan for aftercare: Weight-bearing 100 lb on the left lower extremity. Likely discharge to [facility] for additional rehab.
[2021-06-21] MEDS: CEFAZOLIN 2 GM/20 ML SYRINGE IV ×2 (17:12→20:51)
--- NOTE | 2021-06-21 17:41 | SUR.OPER ---
Supine on padded [place] table with operative leg secured in padded positioning boot and suspended in positioning spar, nonoperative leg in padded knee alexander. Head on one pillow. Arm on non-operative side secured on padded armboard <90 degrees abduction. Arm on operative side padded and resting across chest then secured with tape over sheet. Padded perineal post in place per surgeon.
[2021-06-21] MEDS: BUPIVACAINE LIPOSOME 266 MG/20 ML VIAL INJ (17:47)
[2021-06-21] MEDS: BUPIVACAINE 0.5% (PF) 30 ML, EPINEPHrine 0.15 MG INJ (17:47)
--- NOTE | 2021-06-21 17:54 | PC.NURSE ---
Addendum entered by Bronwyn De Jesus R.N. 06/21/21 18:01: Placed on droplet Isolation for RSV Original Note: Pt arrived from ED this afternoon, in excruciating pain with movement. He is A&Ox3. He reports falling on his L hip, and denies hitting his head. Admission assessment completed. Slightly hypertensive possibly r/t pain. Pt reports minimal pain without movement. He is able to void using the urinal. NPO for surgery. MD at bedside this evening obtaining consent, OR Nurses tranpsorted patient approximately 1710 to preop via bed.
--- NOTE | 2021-06-21 19:08 | SUR.PHASEI ---
1856 hrs: Pt arrives PACU breathing unassisted. Report from [employer] [employer]IE[employer]ENANT and Dr Hartley. All questions answered.
--- NOTE | 2021-06-21 20:12 | SUR.PHASEI ---
2010 hrs: Pt transported with RNs to room 216 in stable condition. Report at bedside to KITTY Andrade.
[2021-06-21] MEDS: ONDANSETRON 4 MG/2 ML INJ IV (20:17)
[2021-06-21] MEDS: LACTATED RINGERS 1,000 ML 125 ML IV (20:51)
[2021-06-21] MEDS: ASPIRIN EC 81 MG TABLET PO (20:51)
[2021-06-21] MEDS: OXYCODONE IR 5 MG TABLET PO (23:38)
[2021-06-21] MEDS: LORazepam 2 MG/ML INJ IV (23:39)
[2021-06-22] VITALS (16 sets, daily range): BP systolic 95–146; BP diastolic 62–88; PULSE 71–113; RESP 14–49; TEMP 35.8–36.9; O2SAT 93–100
[2021-06-22] MEDS: CEFAZOLIN 2 GM/20 ML SYRINGE IV (04:36)
[2021-06-22] MEDS: LACTATED RINGERS 1,000 ML 125 ML IV (05:10)
[2021-06-22 06:36] LABS: BUN Creatinine Ratio 25.6 (6-22); Blood Urea Nitrogen 31 mg/dL (9-20); Calcium 8.2 mg/dL (8.4-10.2); Carbon Dioxide 18 mmol/L (22-32); Chloride 104 mmol/L (98-107); Estimated Glomerular Filt Rate 58.5 mL/min (>60); Glucose 158 mg/dL (80-110); HEMOLYSIS < 15 (0-50); Potassium 5.2 mmol/L (3.4-5.1); Sodium 135 mmol/L (137-145)
[2021-06-22] MEDS: ACETAMINOPHEN 325 MG TABLET 975 MG PO ×3 (09:27→20:36)
[2021-06-22 09:28] LABS: BUN Creatinine Ratio 26.3 (6-22); Blood Urea Nitrogen 35 mg/dL (9-20); Carbon Dioxide 21 mmol/L (22-32); Chloride 101 mmol/L (98-107); Estimated Glomerular Filt Rate 52.4 mL/min (>60); Glucose 154 mg/dL (80-110); HEMOLYSIS < 15 (0-50); Sodium 136 mmol/L (137-145)
[2021-06-22] MEDS: FOLIC ACID 1 MG TABLET PO (09:28)
[2021-06-22] MEDS: MULTIVITAMIN 1 TABLET 1 TAB PO (09:28)
[2021-06-22] MEDS: CLOPIDOGREL 75 MG TABLET PO (09:28)
[2021-06-22] MEDS: ASPIRIN EC 81 MG TABLET PO ×2 (09:28→20:35)
[2021-06-22] MEDS: THIAMINE 100 MG TABLET PO (09:28)
[2021-06-22 09:32] LABS: Mean Corpuscular HGB Conc 32.5 % (30-36); Mean Corpuscular Hemoglobin 33.7 PG (26-34); Mean Corpuscular Volume 103.6 fL (80-100); Platelet Count 214 X10^3/uL (150-400); Red Blood Cell Count 1.81 X10^6/uL (4.5-5.9); Red Cell Distribution Width 24.7 % (11.6-14.8); White Blood Cell Count 13.3 X10^3/uL (4.5-11.0)
[2021-06-22 09:34] LABS: Add Manual Diff / Slide Review YES
[2021-06-22 09:35] LABS: Hematocrit 18.7 % (41-53); Hemoglobin 6.1 g/dL (13.5-17.5)
--- NOTE | 2021-06-22 10:38 | PM.PNPO.1 ---
Subjective Subjective Date Patient Seen: 06/22/21 Time Patient Seen: 10:38 Interval history: Pain mild to moderate. Denies fever or chills. No nausea or vomiting. Patient reports no chest pain or shortness of breath. Exam Vital Signs (past 8 hours): - 06/22/21 04:40 06/22/21 07:30 06/22/21 10:15 Temperature 97.4 F L 96.4 F L Pulse Rate 94 H 94 H Respiratory Rate 16 14 Blood Pressure 95/62 120/71 Pulse Oximetry 97 100 93 Oxygen Delivery Method Nasal Cannula Oxygen Flow Rate 1 Narrative Exam Narrative: Pleasant 76-year-old male resting comfortably in bed in no apparent distress. Dressing is saturated. Motor functions intact bilateral lower extremities. Sensation grossly intact to light touch bilateral lower extremities. Const General: cooperative and comfortable Resp Effort & Inspection: normal respiratory effort and able to speak in complete sentences Objective Labs Result Diagrams: 06/22/21 09:00 06/22/21 09:00 Labs: Laboratory Results - last 24 hr 06/21/21 06/21/21 06/21/21 11:50 11:50 11:50 WBC 10.5 RBC 3.05 L Hgb 10.5 L Hct 31.0 L MCV 101.9 H MCH 34.3 H MCHC 33.7 RDW 25.6 H Plt Count 300 Neut % (Auto) 86.5 H Lymph % (Auto) 4.9 L [place] % (Auto) 7.2 Eos % (Auto) 0.0 L Baso % (Auto) 1.4 Neut # (Auto) 9100 H Lymph # (Auto) 500 L [place] # (Auto) 800 Eos # (Auto) 0 Baso # (Auto) 200 H RBC Morphology Not Reportable Hypochromasia 1+ H Poikilocytosis 2+ H Anisocytosis 2+ H Sodium 141 Potassium 4.5 Chloride 103 Carbon Dioxide 25 BUN 20 Creatinine 0.86 Estimated GFR > 60.0 BUN/Creatinine Ratio 23.3 H Glucose 82 Calcium 9.7 Total Bilirubin 0.9 AST 69 H ALT 52 H Alkaline Phosphatase 61 Total Creatine Kinase 33 L CK-MB (CK-2) TNP CK-MB (CK-2) Rel Index TNP Troponin I < 0.012 Total Protein 7.4 Albumin 4.8 Globulin 2.6 Albumin/Globulin Ratio 1.8 Lipase 123 Urine RBC Urine WBC Ur Squamous Epith Cells Amorphous Sediment Urine Bacteria Hyaline Casts Urine Mucus Ur Culture Indicated? Ethyl Alcohol 124 H SARS-CoV-2 (PCR) RSV (PCR) 06/21/21 06/21/21 06/21/21 12:00 12:10 12:10 WBC RBC Hgb Hct MCV MCH MCHC RDW Plt Count Neut % (Auto) Lymph % (Auto) [place] % (Auto) Eos % (Auto) Baso % (Auto) Neut # (Auto) Lymph # (Auto) [place] # (Auto) Eos # (Auto) Baso # (Auto) RBC Morphology Hypochromasia Poikilocytosis Anisocytosis Sodium Potassium Chloride Carbon Dioxide BUN Creatinine Estimated GFR BUN/Creatinine Ratio Glucose Calcium Total Bilirubin AST ALT Alkaline Phosphatase Total Creatine Kinase CK-MB (CK-2) CK-MB (CK-2) Rel Index Troponin I Total Protein Albumin Globulin Albumin/Globulin Ratio Lipase Urine RBC None seen Urine WBC 1-5/hpf Ur Squamous Epith Cells 1-5 /hpf Amorphous Sediment 1+ Urine Bacteria None seen Hyaline Casts 1-5/lpf Urine Mucus 1+ H Ur Culture Indicated? Cult not indicated Ethyl Alcohol SARS-CoV-2 (PCR) Negative RSV (PCR) Detected 06/22/21 06/22/21 06/22/21 06:18 09:00 09:00 WBC 13.3 H RBC 1.81 L Hgb 6.1 L* Hct 18.7 L* MCV 103.6 H MCH 33.7 MCHC 32.5 RDW 24.7 H Plt Count 214 Neut % (Auto) Not Reportable Lymph % (Auto) Not Reportable [place] % (Auto) Not Reportable Eos % (Auto) Not Reportable Baso % (Auto) Not Reportable Neut # (Auto) Lymph # (Auto) Not Reportable [place] # (Auto) Not Reportable Eos # (Auto) Baso # (Auto) Not Reportable RBC Morphology Hypochromasia Poikilocytosis Anisocytosis Sodium 135 L 136 L Potassium 5.2 H 5.0 Chloride 104 101 Carbon Dioxide 18 L 21 L BUN 31 H 35 H Creatinine 1.21 1.33 H Estimated GFR 58.5 L 52.4 L BUN/Creatinine Ratio 25.6 H 26.3 H Glucose 158 H 154 H Calcium 8.2 L 8.0 L Total Bilirubin AST ALT Alkaline Phosphatase Total Creatine Kinase CK-MB (CK-2) CK-MB (CK-2) Rel Index Troponin I Total Protein Albumin Globulin Albumin/Globulin Ratio Lipase Urine RBC Urine WBC Ur Squamous Epith Cells Amorphous Sediment Urine Bacteria Hyaline Casts Urine Mucus Ur Culture Indicated? Ethyl Alcohol SARS-CoV-2 (PCR) RSV (PCR) PFS Medical History CAD (coronary artery disease) Claudication of both lower extremities COPD (chronic obstructive pulmonary disease) HTN (hypertension) Hyperlipidemia Surgical History History of heart artery stent Social History household members: none Smoking Status: Former smoker alcohol intake: current Assessment & Plan Post-op Postoperative Procedures: Procedures Operation Date: 06/21/21 16:30 Actual Procedure Side Surgeon p ORIF Hip DHS Left Allison Jazlyn Oakley MD Postoperative day: 1 Postoperative status narrative: Postop day 1 status post open reduction internal fixation left intertrochanteric hip fracture with dynamic hip screw by Dr. Oakley June 21, 2021 Postoperative plan narrative: Mobilize with physical therapy, Weight-bearing 100 lb on the left lower extremity. Anemia, hemoglobin 6.1, hematocrit 18.7, secondary to blood loss during surgery and patient is scheduled to receive 2 units of packed red blood cells. New dressing Hospitalist following as well for COPD, CAD, hypertension, alcohol abuse Likely discharge to [facility] for additional rehab 2-3 days when medically stable. Quality VTE Deep Vein Thrombosis/Pulmonary Embolism Present on Admission: No
--- NOTE | 2021-06-22 11:59 | PT.IIE ---
Current Diagnoses Fracture of unspecified part of neck of left femur, initial encounter for closed fracture (06/21/21) Surgery Performed Operation Date: 06/21/21 16:30 Actual Procedures p ORIF Hip DHS(Left) - Allison Oakley MD Medical History (Last Reviewed 06/22/21 @ 10:40 by Abelardo Joseph PA-C) CAD (coronary artery disease) Claudication of both lower extremities COPD (chronic obstructive pulmonary disease) HTN (hypertension) Hyperlipidemia Physical Therapy Inpatient Evaluation/Re-Eval M1 PT/OT-IP Prior Functional Status Start: 06/22/21 09:34 Freq: Status: Active Protocol: Document 06/22/21 11:33 MB (Rec: 06/22/21 11:59 MB [id number]) Medical Review Prior Functional Status Medical History Reviewed Yes Mobility and Gait Pt reports multiple falls at home and that he has a cane that he does not use Activities of Daily Living and IADL's Pt reports he was I for showering and ADLs. He does have an unkempt appearance, states he has been wanting to get a haircut, sleeps on a mattress on the floor, and does not have anyone to check on him. He states his daughter lives in [place] and that she does hope to get his property one day d/t the value has increased and he has gotten the payments down to half. He lives in [place] and has some land. Per chart, pt may have some ETOH challenges. Pt states that he does some driving. He reports trouble with seeing things at night when he gets up that he describes as black dots and vertigo and PT checks for orthostasis Social History Household Members none Living Arrangements House Number of Floors (Floors) Two Floors Number of Stairs To Enter/Railing? No steps to enter, he has a basement with a rail and steps to descend but he does not like to go down there d/t falls and weakness Home Environment Standard Height Toilet Home Equipment Straight Cane Employment Status Retired Additional Social History Comment Pt states that he served in the [employer] and does mention [place] M2 PT-IP Current Condition Start: 06/22/21 09:34 Freq: Status: Active Protocol: Document 06/22/21 11:33 MB (Rec: 06/22/21 11:59 MB [id number]) Physical Therapy Current Condition Current Condition Evaluation Date 06/22/21 Treatment Diagnosis Decreased mobility s/p falls, left hip screwing M3 PT-IP Subjective Start: 06/22/21 09:34 Freq: Status: Active Protocol: Document 06/22/21 11:33 MB (Rec: 06/22/21 11:59 MB [id number]) Subjective Physical Therapy Visit Type Type Initial Evaluation Visit Start Time 10:55 Visit Stop Time 11:29 Total Visit Minutes 34 Number of PUBLIC RELATIONS MANAGER Visits 0 Physical Therapy Visit Comments Patient Comments Pt is pleasant and coversant, does have some mild confusion and does state that he has left hip pain with mobility and he cannot rate. PT communicates possible need for medication to ELECTRIC TRUCK DRIVER when she arrives end of eval Therapy Pain Assessment Pain When Pain Assessed During Mobility Pain Present Pain Present Pain Reported Location Left hip Intensity 5 Scale Used Elena (Faces) M4 PT-IP Mobility and Gait Start: 06/22/21 09:34 Freq: Status: Active Protocol: Document 06/22/21 11:33 MB (Rec: 06/22/21 11:59 MB [id number]) PT-Bed Mobility Assessment Supine to Sit Supine to Sit Maximum Assistance,1 Person Assistance,Head of Bed Elevated,Bedrails Scooting Scooting to Edge of Bed Maximum Assistance PT-Transfer Assessment Sit to and From Stand Sit to and from Stand Moderate Assistance Equipment Transfer Assistive Device Front Wheeled Walker Orthotic/Prosthetic Devices or Brace: No Transfers Transfer Destination Bed Transfer Technique Stand Pivot Transfer Ability Level of Assist Maximum Assistance,1 Person Assistance,Use of Upper Extremities Comments Mobility Comments Pt makes good effort to try to scoot to the left to get OOB. He gets stuck in the dip of the mattress of hospital bed and PT must assist to scoot hips to EOB with the pad, providing maxA. Pt has LOB to the left with the scooting assist and loses balance to the left into the pillow with the HOB increased. He makes strong effort to scoot forward to get feet on floor with PT cueing for him to push through his arms. He does not lose balance with this. PT cannot locate a gait belt and so with PT in front of walker, blocking pt's feet, PT provides support around pt's left back and holds walker as well. Pt gets to his feet with mod A and his posture is forward and flexed. PT is not concerned about breaking 100 lb WB restriction given his lower body weight and that he WB through both feet and hands on walker. He cannot truly step to the left with assist and walker to the chair and his transfers is more like a stand pivot to the left. PT cues him many times to reach back for the chair with his right hand and he does finally do this before sitting. He is on 1L O2 and cannula does not reach nor does sat reader measure. PT assesses orthostatics that are negative , though his HR is high. BP and HR in right UE hook lyin/74, 109; standing 124/68, 130; standing 1' 123/88, 137. Left up in chair with needs in reach and ELECTRIC TRUCK DRIVER arriving with beeper monitor. Gait Assessment Comments Gait Comments Unable to step today PT-Balance Assessment Sitting Balance and Reactions Static Sitting Balance Ability Poor Dynamic Sitting Balance Ability Poor Standing Balance and Reactions Static Standing Balance Ability Poor Dynamic Standing Balance Ability Poor Device Used RW and PT supporting behind his back Comments Other Balance Tests/Deviations/Treatment Sitting balance losses as : described above M5 PT-IP Objective Assessments Start: 06/22/21 09:34 Freq: Status: Active Protocol: Document 06/22/21 11:33 MB (Rec: 06/22/21 11:59 MB [id number]) Orientation Orientation/Cognition Level of Alertness Confusional State Orientation Name,Age,Birthday,Month Language Function Ability No Deficits Noted Safety Awareness Decreased Safety Awareness Memory Description Short Term Impaired,Cool Roofing Installer Impaired Comments Pt does state that he has trouble sleeping in the hospital and his mind is active. Gross Range of Motion Upper Extremity ROM Assessment Within Functional Limits Lower Extremity ROM Assessment Bilaterally Impaired Impairments Movement of right LE bothers his LLE and he uses his hands to draw up his right leg to his chest in sitting when PT asks him to move Strength Upper Extremity Strength Assessment Within Functional Limits Lower Extremity Strength Assessment Bilaterally Impaired Comments Strength Comments MMT deferred given pain M6 PT-IP Treatment Start: 06/22/21 09:34 Freq: Status: Active Protocol: Document 06/22/21 11:33 MB (Rec: 06/22/21 11:59 MB [id number]) Physical Therapy Treatment Education Education Provided Precautions,Weight Bearing Status,Safety M7 PT-IP Assessment and Plan Start: 06/22/21 09:34 Freq: Status: Active Protocol: Document 06/22/21 11:33 MB (Rec: 06/22/21 11:59 MB [id number]) PT Summary Assessment and Plan Potential Rehabilitation Potential Fair Status of Condition at Evaluation Evolving Summary Impairments Pain,ROM,Strength,Balance, Cognition,Bed Mobility, Transfers,Gait,Activity Tolerance Assessment Summary Pt is a 76 y/o male presenting with a history of falls at baseline per his report, possible trouble with ETOH, and PT concerned about possible history of trauma given his brief descriptions of his time in the [employer] and [place] and his reports that his mind is active and he cannot sleep at night. His descriptions of seeing stuff at night and vertigo like when he gets up leads PT to consider light-headedness and orthostasis. He states he is sleeping on a mattress on the floor at home. He reports he has a cane that he does not use. PT is concerned about his overall home and support situation given his unkempt appearance and reports of home situation. Today, he makes a good effort with PT and appears to have more pain in his LLE than he complains about. His face loses color and he stops talking after getting up to his feet and PT suspects pain and he does report maybe some light- headedness. PT cannot catch any orthostasis with readings and pt's HR is very high, into th 130s. Teaching 100# WB is difficult and pt does use both feet and UE support through the walker with standing and so PT does not feel that this precaution is broken. He cannot take a step today d/t weakness, pain and light- headedness. He will benefit from acute and post-acute PT to improve mobility and safety . Goals Bed Mobility Goal Standby Assistance Transfer Goal Standby Assistance,Front Wheeled Walker Gait Goal Contact Guard Assistance,Front Wheel Walker Gait Distance 25 Days to Meet Goals 5 Frequency of Treatment Frequency Of Treatment Once a Day Treatment Plan Physical Therapy Treatment Plan Bed Mobility Training,Transfer Training,Gait Training, Therapeutic Exercise,Balance Retraining,Post Op Education, Discharge Planning, Neuromuscular Re-ed Other Recommendations and Next Treatment Progress transfers and gait, Focus if pt can, rediscuss 100# WB LLE Weight Bearing Status Weight Bearing Status Partial Weight Bearing Allowed Weight Bearing Amount (enter % 100# LLE or #) (%) Recommendations To Nursing Amount of Assist Needed Mechanical Lift Discharge Recommendations PT Discharge Recommendations SNF Rehab Transportation Needs at Discharge Wheelchair/Cabulance
--- NOTE | 2021-06-22 12:05 | PT-IP ANOTE ---
Pt's HGB is low and he is going to get blood and since he was lethargic and was not able to do a lot with PT today, only picking pt up for 1x/day currently. Will monitor his response tomorrow.
--- NOTE | 2021-06-22 13:11 | PC.NURSE ---
Addendum entered by Humera Guaman R.N. 06/22/21 17:00: First unit PRBC's infused and second unit up now. Aquacell dsg & daniel CDI. Condition remains essentially unchanged. Call light w/in reach, bed alarm on for pt safety. Continue w/plan of care. Original Note: Pt sat in chair for 1.5 hrs this morning, tolerated w/o incidence. H/H = 6.1/18.7, first unit PRBC's infusing via pump w/o incidence. Will recieve2 units. Dsg to left hip saturated, orders to change received. Satisfactory p[ost op course. Call light w/in reach, bed alarm on for pt safety.
[2021-06-22 13:43] LABS: Neutrophils Absolute Manual 12103 /uL (3000-5900); Nucleated Red Blood Cells 5 #/Diff; Total Cells Counted 100
[2021-06-22 13:44] LABS: Anisocytosis 3+; Hypochromasia 2+; Ovalocytes 2+; Poikilocytosis 2+; Tear Drop Cells 2+
--- NOTE | 2021-06-22 13:54 | CM.DANOTE ---
DCP Assessment: Patient is a 76 yr old male who had a GLF and had a left femur fracture with surgical repair by Dr. Oakley. CM met with patient at the bedside and explained role. Patient was alert and oriented x4 at time of CM visit. Patient stated that he currently lives alone and would like to go to [facility] SNF to build strength before DC home. CM called [place] at [facility] and she will review patient not ready for DC until 06/24/20. Patient states [place] drives [place] just not at night and he is independent with all ADLS however does use a FWW and canes at home to help him get around. CM asked patient about his drinking and if he would like help quitting. Patient stated no he has one or two drinks a night and he has been doing that from many years and has no intention of stopping now. CM will fax Clinical information to [facility] to review for possible admission. PASRR complete. I: Medicare and Plan: DC to SNF Rehab when medically stable. CM department will follow up with [facility] to check on acceptance. Meka Oakley RN Case Manger. Discharge Planning/Care Management CM Discharge Assessment Start: 06/22/21 13:45 Freq: Status: Active Protocol: Document 06/22/21 13:45 HS (Rec: 06/22/21 13:54 HS [id number]) Discharge Planning Assessment Assigned Casing Operator Meka Oakley RNlog yard derrick operator DPOA/Assigned Designee Name Fernanda Nielsen Contact Information [phone] Advance Directives? Yes Advance Directives on File No History Provided By Patient,Medical Record Has Patient been admitted in last 30 No days? Prior Living Arrangements Skilled Nurse Facility Comment wants to go to [facility] Household Members none Comment Lives alone Type of transporation used prior to Drives own vehicle admit Comment patient states that he does drive himself around just not at night Independent with ADL's Yes Is patient alert and oriented? Yes Caregiver for Another No DME Already Rented / Owned FWW / Walker,Cane Patient/Family Preference [facility] Facility Barriers to Discharge No Discharge Plan [facility] Facility Transportation Arrangement arranged by [facility] facility Referrals Initiated [facility] Additional Comment patient wants to go to [facility] SN[facility] - CM called [place] at [facility] who is now reviewing If patient plan is home with home health Yes : Has signed face to face form been completed? If patient plan is SNF: Has PASSR been Yes completed? Medicare Choice List Provided Yes SNF/HH Preference [facility] Contact Name/Phone Lydia/ [place] [phone] Has Agency SNF been contacted Yes Whiteboard Updated in Patient Room with Yes name and ext. # of Casing Operator Review Status In Process Next Review Type Continued Stay Review
--- NOTE | 2021-06-22 16:30 | P.PN_ITS ---
Subjective Subjective Date Patient Seen: 06/22/21 Time Patient Seen: 08:00 Interval history: Today he feels fatigued. He has no fevers/chills. His pain is well controlled. He has no lightheadedness, or shortness of breath. No withdrawal symptoms. Exam Vital Signs (past 8 hours): - 06/22/21 10:15 06/22/21 10:49 06/22/21 11:25 Temperature 97.5 F L Pulse Rate 71 Respiratory Rate 15 Blood Pressure 126/88 Pulse Oximetry 93 95 93 06/22/21 12:53 06/22/21 13:09 06/22/21 15:00 Temperature 97.0 F L 97.8 F Pulse Rate 101 H 99 H Respiratory Rate 18 18 18 Blood Pressure 131/78 115/78 Pulse Oximetry Oxygen Delivery Method Nasal Cannula Oxygen Flow Rate 1 Narrative Exam Narrative: GEN: no acute distress HEENT: moist mucous membranes, PERRL NECK: trachea midline, no JVD CV: regular rate and rhythm, no murmurs PULM: clear bilaterally, no wheezes, rhonchi, rales ABD: soft, nontender, nondistended, no organomegaly, normal bowel sounds EXT: left hip bandage soiled NEURO: awake, alert, oriented PSYCH: pleasant Objective Labs Result Diagrams: 06/22/21 09:00 06/22/21 09:00 Labs: Laboratory Results - last 24 hr 06/22/21 06/22/21 06/22/21 06:18 09:00 09:00 WBC 13.3 H RBC 1.81 L Hgb 6.1 L* Hct 18.7 L* MCV 103.6 H MCH 33.7 MCHC 32.5 RDW 24.7 H Plt Count 214 Neut % (Auto) Not Reportable Lymph % (Auto) Not Reportable [place] % (Auto) Not Reportable Eos % (Auto) Not Reportable Baso % (Auto) Not Reportable Lymph # (Auto) Not Reportable [place] # (Auto) Not Reportable Baso # (Auto) Not Reportable Total Counted 100 Seg Neutrophils % 87.0 H Band Neutrophils % 4.0 Lymphocytes % (Manual) 4.0 L Monocytes % (Manual) 5.0 Neutrophils # (Manual) 71041 H Nucleated RBCs 5 H RBC Morphology See below Hypochromasia 2+ H Poikilocytosis 2+ H Anisocytosis 3+ H Tear Drop Cells 2+ H Ovalocytes 2+ H Sodium 135 L 136 L Potassium 5.2 H 5.0 Chloride 104 101 Carbon Dioxide 18 L 21 L BUN 31 H 35 H Creatinine 1.21 1.33 H Estimated GFR 58.5 L 52.4 L BUN/Creatinine Ratio 25.6 H 26.3 H Glucose 158 H 154 H Calcium 8.2 L 8.0 L Blood Type Antibody Screen Crossmatch 06/22/21 10:20 WBC RBC Hgb Hct MCV MCH MCHC RDW Plt Count Neut % (Auto) Lymph % (Auto) [place] % (Auto) Eos % (Auto) Baso % (Auto) Lymph # (Auto) [place] # (Auto) Baso # (Auto) Total Counted Seg Neutrophils % Band Neutrophils % Lymphocytes % (Manual) Monocytes % (Manual) Neutrophils # (Manual) Nucleated RBCs RBC Morphology Hypochromasia Poikilocytosis Anisocytosis Tear Drop Cells Ovalocytes Sodium Potassium Chloride Carbon Dioxide BUN Creatinine Estimated GFR BUN/Creatinine Ratio Glucose Calcium Blood Type O Positive Antibody Screen Negative Crossmatch See Detail [facility] Medical History CAD (coronary artery disease) Claudication of both lower extremities COPD (chronic obstructive pulmonary disease) HTN (hypertension) Hyperlipidemia Surgical History History of heart artery stent Social History household members: none Smoking Status: Former smoker alcohol intake: current Assessment & Plan Assessment & Plan narrative: 1. Left hip fracture -pain medications ordered -orthopedic surgery consulted -hold aspirin/plavix -PT/OT ordered -s/p repair on 06/21 2. Acute blood loss anemia -due to surgery -transfuse 2U PRBC now, hgb 6.1 -recheck afterwards, and tranfuse prn for hgb<8 2. Left rib fracture -no significant respiratory distress -pain medications as above -incentive spirometry to avoid splinting 3. COPD -no exacerbation -prn nebs 4. CAD -hold aspirin,plavix for now 5. HTN -restart medications tomorrow 6. EtOH abuse -not currently in withdrawal -ordered for CIWA protocol, prn ativan -ordered mvi, thiamine, folate CODE: DNR Proxy: Gia Crystal, daughter I have utilized all available resources to reconcile patient's home medications. Time Spent With Patient Critical Care time: I spent a total of [] minutes of critical care time on this patient's care today; this time is exclusive of procedural time. Quality VTE Deep Vein Thrombosis/Pulmonary Embolism Present on Admission: No
[2021-06-22] MEDS: OXYCODONE IR 5 MG TABLET PO ×2 (19:39→23:51)
[2021-06-22] MEDS: ATORVASTATIN 20 MG TABLET 75 MG PO (20:36)
[2021-06-22 21:59] LABS: Hemoglobin 8.1 g/dL (13.5-17.5); Mean Corpuscular Hemoglobin 31.8 PG (26-34); Mean Corpuscular Volume 93.8 fL (80-100); Platelet Count 164 X10^3/uL (150-400); Red Blood Cell Count 2.55 X10^6/uL (4.5-5.9); Red Cell Distribution Width 22.5 % (11.6-14.8)
[2021-06-22 22:02] LABS: Hematocrit 23.9 % (41-53)
[2021-06-23] VITALS (11 sets, daily range): BP systolic 110–152; BP diastolic 68–91; PULSE 80–106; RESP 14–19; TEMP 36.4–36.9; O2SAT 94–99
[2021-06-23] MEDS: LORazepam 2 MG/ML INJ IV (01:09)
[2021-06-23] MEDS: OXYCODONE IR 5 MG TABLET PO ×3 (05:29→23:34)
[2021-06-23 06:29] LABS: Hematocrit 24.6 % (41-53); Hemoglobin 8.3 g/dL (13.5-17.5); Mean Corpuscular HGB Conc 33.9 % (30-36); Mean Corpuscular Hemoglobin 31.9 PG (26-34); Mean Corpuscular Volume 94.3 fL (80-100); Platelet Count 156 X10^3/uL (150-400); Red Blood Cell Count 2.61 X10^6/uL (4.5-5.9); Red Cell Distribution Width 22.9 % (11.6-14.8); White Blood Cell Count 13.7 X10^3/uL (4.5-11.0)
[2021-06-23 06:33] LABS: BUN Creatinine Ratio 34.6 (6-22); Blood Urea Nitrogen 36 mg/dL (9-20); Calcium 8.1 mg/dL (8.4-10.2); Carbon Dioxide 29 mmol/L (22-32); Chloride 101 mmol/L (98-107); Estimated Glomerular Filt Rate > 60.0 mL/min (>60); Glucose 162 mg/dL (80-110); HEMOLYSIS < 15 (0-50); Potassium 3.9 mmol/L (3.4-5.1); Sodium 132 mmol/L (137-145)
[2021-06-23] MEDS: ACETAMINOPHEN 325 MG TABLET 975 MG PO ×3 (08:17→20:31)
[2021-06-23] MEDS: ASPIRIN EC 81 MG TABLET PO ×2 (08:18→20:30)
[2021-06-23] MEDS: MULTIVITAMIN 1 TABLET 1 TAB PO (08:18)
[2021-06-23] MEDS: FOLIC ACID 1 MG TABLET PO (08:18)
[2021-06-23] MEDS: THIAMINE 100 MG TABLET PO (08:18)
[2021-06-23] MEDS: CLOPIDOGREL 75 MG TABLET PO (08:18)
[2021-06-23] MEDS: polyethylene glycoL 3350 17 GM POWD.PACK PO (08:19)
--- NOTE | 2021-06-23 10:29 | PM.PNPO.1 ---
Subjective Subjective Date Patient Seen: 06/23/21 Time Patient Seen: 10:29 Interval history: He notes he is doing a little bit better. He still has constant pain into his left hip. He plans on watching the football game today. Exam Vital Signs (past 8 hours): - 06/23/21 05:05 06/23/21 07:07 06/23/21 09:29 Temperature 97.9 F 97.8 F Pulse Rate 99 H 100 H Respiratory Rate 19 14 Blood Pressure 152/91 H 134/84 Pulse Oximetry 99 97 96 Oxygen Delivery Method Nasal Cannula Oxygen Flow Rate 0 Narrative Exam Narrative: He is alert is appropriate some mild amount of shakiness it is not severe dressings intact his thigh is soft he has mild pain with gentle range of motion is neurologically intact distally in his calfs are soft Objective Labs Result Diagrams: 06/23/21 06:00 06/23/21 06:00 Labs: Laboratory Results - last 24 hr 06/22/21 06/22/21 06/22/21 09:00 10:20 21:46 WBC 12.0 H RBC 2.55 L Hgb 8.1 L Hct 23.9 L MCV 93.8 D MCH 31.8 MCHC 34.0 RDW 22.5 H Plt Count 164 Total Counted 100 Seg Neutrophils % 87.0 H Band Neutrophils % 4.0 Lymphocytes % (Manual) 4.0 L Monocytes % (Manual) 5.0 Neutrophils # (Manual) 39064 H Nucleated RBCs 5 H RBC Morphology See below Hypochromasia 2+ H Poikilocytosis 2+ H Anisocytosis 3+ H Tear Drop Cells 2+ H Ovalocytes 2+ H Sodium Potassium Chloride Carbon Dioxide BUN Creatinine Estimated GFR BUN/Creatinine Ratio Glucose Calcium Blood Type O Positive Antibody Screen Negative Crossmatch See Detail 06/23/21 06/23/21 06:00 06:00 WBC 13.7 H RBC 2.61 L Hgb 8.3 L Hct 24.6 L MCV 94.3 MCH 31.9 MCHC 33.9 RDW 22.9 H Plt Count 156 Total Counted Seg Neutrophils % Band Neutrophils % Lymphocytes % (Manual) Monocytes % (Manual) Neutrophils # (Manual) Nucleated RBCs RBC Morphology Hypochromasia Poikilocytosis Anisocytosis Tear Drop Cells Ovalocytes Sodium 132 L Potassium 3.9 Chloride 101 Carbon Dioxide 29 BUN 36 H Creatinine 1.04 Estimated GFR > 60.0 BUN/Creatinine Ratio 34.6 H Glucose 162 H Calcium 8.1 L Blood Type Antibody Screen Crossmatch [facility] Medical History CAD (coronary artery disease) Claudication of both lower extremities COPD (chronic obstructive pulmonary disease) HTN (hypertension) Hyperlipidemia Surgical History History of heart artery stent Social History household members: none Smoking Status: Former smoker alcohol intake: current Assessment & Plan Post-op Postoperative Procedures: Procedures Operation Date: 06/21/21 16:30 Actual Procedure Side Surgeon p ORIF Hip DHS Left Allison Oakley MD Postoperative day: 2 Postoperative status: doing well Postoperative plan: routine post-op care and ambulate Postoperative plan narrative: Making steady progress he will require rehab and we will work on finding appropriate disposition. He still is on a CIWA protocol but is doing reasonably well. Hematocrit has stabilized after blood loss anemia associated with his fracture. Follow-up orthopedic we in 10-14 days. Quality VTE Deep Vein Thrombosis/Pulmonary Embolism Present on Admission: No
--- NOTE | 2021-06-23 10:47 | PT.IPTN ---
Current Diagnoses Fracture of unspecified part of neck of left femur, initial encounter for closed fracture (06/21/21) Surgery Performed Operation Date: 06/21/21 16:30 Actual Procedures p ORIF Hip DHS(Left) - Allison Oakley MD Physical Therapy Treatment Note M2 PT-IP Current Condition Start: 06/22/21 09:34 Freq: Status: Active Protocol: Document 06/23/21 10:47 DLM (Rec: 06/23/21 11:47 DL [id number]) Physical Therapy Current Condition Current Condition Evaluation Date 06/22/21 Treatment Diagnosis Left femur ORIF with dynamic screw, impaired mobility/gait Onset Date 06/21/21 M3 PT-IP Subjective Start: 06/22/21 09:34 Freq: Status: Active Protocol: Document 06/23/21 10:47 DLM (Rec: 06/23/21 11:47 DL [id number]) Subjective Physical Therapy Visit Type Type Treatment Note Visit Start Time 10:15 Visit Stop Time 10:47 Total Visit Minutes 32 Notes blood transfusion 06/22/21 Number of SPORT SHOE SPIKE ASSEMBLER Visits 0 Physical Therapy Visit Comments Patient Comments He thinks his leg feels a little better today, can move it a little more Patient Goals go to rehab to get stronger before going home Therapy Pain Assessment Pain When Pain Assessed During Mobility Pain Present Pain Present Pain Reported Location Left hip Intensity 5 Scale Used Numeric (0 - 10) Description Aching,Cramping,Tightness,With Movement Pain Behaviors Facial Grimacing,Wincing Pain Management Techniques Elevation,Re-positioning M4 PT-IP Mobility and Gait Start: 06/22/21 09:34 Freq: Status: Active Protocol: Document 06/23/21 10:47 DLM (Rec: 06/23/21 11:47 DL [id number]) PT-Bed Mobility Assessment Supine to Sit Supine to Sit Moderate Assistance Scooting Scooting to Edge of Bed Moderate Assistance PT-Transfer Assessment Sit to and From Stand Sit to and from Stand Moderate Assistance,Use of Upper Extremities Equipment Transfer Assistive Device Front Wheeled Walker Transfers Transfer Destination Chair Transfer Technique Stand Step Pivot Transfer Ability Level of Assist Moderate Assistance,Use of Upper Extremities Comments Mobility Comments He is tremulous today which he reports is normal for him. He has difficulty with weight shifting in sitting to scoot on the bed. In initial standing he has posterior lean but is able to correct it with assistance and education. He demonstrates good ability to keep his weigh on right side in standing. He has difficulty compensating with his UE's on the FWW to take functional steps but did manage a few steps to get to the chair. Pt left up in the recliner this visit with call light close and chair alarm on . Gait Assessment Comments Gait Comments he was not able to progres to gait this visit due to difficulty taking functional steps with the fWW, he can advance left LE but has difficulty advancing his right LE (with PWB on left LE) Stair Climbing Assessment Comments Stair Climbing Comments defer to SNF PT-Balance Assessment Sitting Balance and Reactions Static Sitting Balance Ability Good Dynamic Sitting Balance Ability Good Standing Balance and Reactions Static Standing Balance Ability Fair Dynamic Standing Balance Ability Fair Device Used FWW M5 PT-IP Objective Assessments Start: 06/22/21 09:34 Freq: Status: Active Protocol: Document 06/22/21 11:33 MB (Rec: 06/22/21 11:59 MB [id number]) Orientation Orientation/Cognition Level of Alertness Confusional State Orientation Name,Age,Birthday,Month Language Function Ability No Deficits Noted Safety Awareness Decreased Safety Awareness Memory Description Short Term Impaired,Reporting Process Consultant Impaired Comments Pt does state that he has trouble sleeping in the hospital and his mind is active. Gross Range of Motion Upper Extremity ROM Assessment Within Functional Limits Lower Extremity ROM Assessment Bilaterally Impaired Impairments Movement of right LE bothers his LLE and he uses his hands to draw up his right leg to his chest in sitting when PT asks him to move Strength Upper Extremity Strength Assessment Within Functional Limits Lower Extremity Strength Assessment Bilaterally Impaired Comments Strength Comments MMT deferred given pain M6 PT-IP Treatment Start: 06/22/21 09:34 Freq: Status: Active Protocol: Document 06/23/21 10:47 DLM (Rec: 06/23/21 11:47 DLM [id number]) Physical Therapy Treatment Exercises Exercises Ankle Pumps,Seated Knee Flexion/Extension Education Education Provided Weight Bearing Status,Safety M7 PT-IP Assessment and Plan Start: 06/22/21 09:34 Freq: Status: Active Protocol: Document 06/23/21 10:47 DLM (Rec: 06/23/21 11:47 DLM [id number]) PT Summary Assessment and Plan Summary Impairments Pain,ROM,Strength,Balance, Coordination,Cognition,Bed Mobility,Transfers,Gait, Activity Tolerance Assessment Summary Mr Anderson is alert and resting in bed. He is pleasant and able to follow simple instructions for therapy. He shows good effort with treatment. He is tremulous today. He is slowly progressing with his mobility. He was able to transfer up to the recliner with the fWW. He tolerates standing fairly well but continues to have difficulty taking functional steps for his transfer. He is not ready to advance to gait yet. Continue to recommend SNF rehab at discharge to assist with his recovery after surgery. He is not safe to discharge home alone at this time. Goals Bed Mobility Goal Standby Assistance Transfer Goal Standby Assistance,Front Wheeled Walker Gait Goal Contact Guard Assistance,Front Wheel Walker Gait Distance 25 feet Days to Meet Goals 5 Frequency of Treatment Frequency Of Treatment Twice a Day Treatment Plan Physical Therapy Treatment Plan Bed Mobility Training,Transfer Training,Gait Training, Therapeutic Exercise,Balance Retraining,Post Op Education, Discharge Planning,Hot or Cold Pack,Neuromuscular Re-ed Other Recommendations and Next Treatment focus on transfers until pt Focus better able to manage PWB left LE Precautions Other Precautions CIWA Weight Bearing Status Weight Bearing Status Partial Weight Bearing Allowed Weight Bearing Amount (enter % < or =100# LLE or #) (%) Recommendations To Nursing Amount of Assist Needed 1 Person Assist Discharge Recommendations PT Discharge Recommendations SNF Rehab Equipment Needed for Home Before pt owns a fWW Discharge Transportation Needs at Discharge Wheelchair/Cabulance
--- NOTE | 2021-06-23 12:00 | CM.DPNOTE ---
DCP Note Spoke w/patient this morning; he remains agreeable to SNF stay before returning home. According to [facility]- unsure they will have bed available this week. Spoke w/Radha at [facility] who would like to do an onsite today or tomorrow morning. Faxed patient's referral to the following facilities as b[facility]u plan [facility]: -[facility] [place] [facility] -[facility] ashly -[facility], [facility], [place] Placement efforts continue for this 76 yo s/p hip repair who would greatly benefit from SNF rehab before returning home. ALEXA
[2021-06-23] MEDS: PANTOPRAZOLE DR 40 MG TABLET PO (13:11)
[2021-06-23] MEDS: SUCRALFATE 1 GM TABLET PO ×3 (13:11→20:31)
--- NOTE | 2021-06-23 15:15 | PT.IPTN ---
Current Diagnoses Fracture of unspecified part of neck of left femur, initial encounter for closed fracture (06/21/21) Surgery Performed Operation Date: 06/21/21 16:30 Actual Procedures p ORIF Hip DHS(Left) - Allison Oakley MD Physical Therapy Treatment Note M2 PT-IP Current Condition Start: 06/22/21 09:34 Freq: Status: Active Protocol: Document 06/23/21 10:47 DLM (Rec: 06/23/21 11:47 DL [id number]) Physical Therapy Current Condition Current Condition Evaluation Date 06/22/21 Treatment Diagnosis Left femur ORIF with dynamic screw, impaired mobility/gait Onset Date 06/21/21 M3 PT-IP Subjective Start: 06/22/21 09:34 Freq: Status: Active Protocol: Document 06/23/21 15:16 DLM (Rec: 06/23/21 15:25 DL [id number]) Subjective Physical Therapy Visit Type Type Treatment Note Visit Start Time 14:55 Visit Stop Time 15:15 Total Visit Minutes 20 Number of ANESTHESIOLOGY PHYSICIAN ASSISTANT Visits 0 Physical Therapy Visit Comments Patient Comments His left leg is getting a little sore. Patient Goals go to rehab to get stronger before going home Therapy Pain Assessment Pain When Pain Assessed During Mobility Pain Present Pain Present Pain Reported Location Left hip Intensity 4 Scale Used Numeric (0 - 10) Description Aching,Cramping,Tightness,With Movement Pain Behaviors Facial Grimacing,Wincing Pain Management Techniques Apply Cold,Elevation,Re- positioning M4 PT-IP Mobility and Gait Start: 06/22/21 09:34 Freq: Status: Active Protocol: Document 06/23/21 15:16 DLM (Rec: 06/23/21 15:25 DL [id number]) PT-Bed Mobility Assessment Sit to Supine Sit to Supine Moderate Assistance Scooting Scooting to Edge of Bed Moderate Assistance PT-Transfer Assessment Sit to and From Stand Sit to and from Stand Moderate Assistance,2 Person Assistance,Use of Upper Extremities Equipment Transfer Assistive Device Front Wheeled Walker Transfers Transfer Destination Bed Transfer Technique Stand Step Pivot Transfer Ability Level of Assist Moderate Assistance,1 Person Assistance,Use of Upper Extremities Comments Mobility Comments He continues to be tremulous. He has been sitting up in the recliner since AM visit. He agreed to go back to bed to rest and manage his left LE pain. He has increased difficulty with sit to stand from the recliner and needed two person assist to get onto his feet. Once on his feet he could transfer with one person assist. He continue to have difficulty taking small steps. Gait Assessment Comments Gait Comments unable this visit PT-Balance Assessment Sitting Balance and Reactions Static Sitting Balance Ability Good Dynamic Sitting Balance Ability Good Standing Balance and Reactions Static Standing Balance Ability Fair Dynamic Standing Balance Ability Fair Device Used FWW M5 PT-IP Objective Assessments Start: 06/22/21 09:34 Freq: Status: Active Protocol: Document 06/22/21 11:33 MB (Rec: 06/22/21 11:59 MB [id number]) Orientation Orientation/Cognition Level of Alertness Confusional State Orientation Name,Age,Birthday,Month Language Function Ability No Deficits Noted Safety Awareness Decreased Safety Awareness Memory Description Short Term Impaired,Snf Impaired Comments Pt does state that he has trouble sleeping in the hospital and his mind is active. Gross Range of Motion Upper Extremity ROM Assessment Within Functional Limits Lower Extremity ROM Assessment Bilaterally Impaired Impairments Movement of right LE bothers his LLE and he uses his hands to draw up his right leg to his chest in sitting when PT asks him to move Strength Upper Extremity Strength Assessment Within Functional Limits Lower Extremity Strength Assessment Bilaterally Impaired Comments Strength Comments MMT deferred given pain M6 PT-IP Treatment Start: 06/22/21 09:34 Freq: Status: Active Protocol: Document 06/23/21 15:16 DLM (Rec: 06/23/21 15:25 [facility] [id number]) Physical Therapy Treatment Exercises Exercises Ankle Pumps Education Education Provided Weight Bearing Status,Safety M7 PT-IP Assessment and Plan Start: 06/22/21 09:34 Freq: Status: Active Protocol: Document 06/23/21 15:16 DLM (Rec: 06/23/21 15:25 [facility] [id number]) PT Summary Assessment and Plan Summary Impairments Pain,ROM,Strength,Balance, Coordination,Cognition,Bed Mobility,Transfers,Gait, Activity Tolerance Progress Towards Goals Slow Progress due to Activity Tolerance Assessment Summary Yazan is alert and sitting up in the recliner watching football. He is pleasant and cooperative with care. He had difficulty with sit to stand from the recliner and needed two person assist to get standing with the fWW. Once on his feet he could do a pivot transfer with a few very small steps to get to the bed. He c /o pain left LE with any attempts to weight bear on it and he is shows good effort to try to compensate with his UE 's on the FWW. His generalized weakness makes mobility more difficult for him to compensate for his left LE pain. Pt returned to bed to rest this visit. He is not putting more than 100# on his left LE during transfers at this time. Goals Bed Mobility Goal Standby Assistance Transfer Goal Standby Assistance,Front Wheeled Walker Gait Goal Contact Guard Assistance,Front Wheel Walker Gait Distance 25 feet Days to Meet Goals 5 Frequency of Treatment Frequency Of Treatment Twice a Day Treatment Plan Physical Therapy Treatment Plan Bed Mobility Training,Transfer Training,Gait Training, Therapeutic Exercise,Balance Retraining,Post Op Education, Discharge Planning,Hot or Cold Pack,Neuromuscular Re-ed Other Recommendations and Next Treatment focus on transfers until pt Focus better able to manage PWB left LE Precautions Other Precautions CIWA Weight Bearing Status Weight Bearing Status Partial Weight Bearing Allowed Weight Bearing Amount (enter % < or =100# LLE or #) (%) Recommendations To Nursing Amount of Assist Needed 1 Person Assist,2 Person Assist Discharge Recommendations PT Discharge Recommendations SNF Rehab Equipment Needed for Home Before pt owns a fWW Discharge Transportation Needs at Discharge Wheelchair/Cabulance
--- NOTE | 2021-06-23 18:07 | P.PN_ITS ---
Subjective Subjective Date Patient Seen: 06/23/21 Interval history: NO SIGNIFICANT ISSUES REPORTED OVERNIGHT PATIENT DENIES ANY INCREASING SHORTNESS OF BREATH REPORTED SOME PAIN TO THE LEFT HIP EXPECTED Exam Vital Signs (past 8 hours): - 06/23/21 11:15 06/23/21 15:00 Temperature 97.9 F 98.2 F Pulse Rate 87 106 H Respiratory Rate 16 16 Blood Pressure 110/71 146/75 H Pulse Oximetry 95 94 Oxygen Delivery Method Room Air Oxygen Flow Rate 0 Narrative Exam Narrative: NO ACUTE DISTRESS. PATIENT IS ALERT ORIENTED X3. VITAL SIGNS STABLE HEAD ATRAUMATIC NORMOCEPHALIC NECK : SUPPLE WITHOUT ADENOPATHY NO CAROTID BRUITS EYE: EOMI, PERRLA, NORMAL CONJUNCTIVA; NO JAUNDICE CHEST: REGULAR RATE. NO RUBS. PMI IS NON DISPLACED. NO MURMURS; NORMAL S1- S2 PULMONARY: DECREASED BS OVER THE BASES. MILD BIBASILAR CRACKLES NOTED; NO INCREASED DULLNESS TO PERCUSSION ABDOMEN: SOFT. NONTENDER. NONDISTENDED. BOWEL SOUNDS ARE PRESENT IN ALL 4 QUADRANTS. NO MASS. EXTREMITIES: NO EDEMA.. NO CYANOSIS CLUBBING NOTED. NEURO: CRANIAL NERVES 2-12 GROSSLY INTACT. NO FOCAL NEUROLOGICAL DEFICIT NOTED. MSK: NO DEFORMITY. POOR MUSCULATURE PSYCH : CALM AND COOPERATIVE. ALERT AWAKE ORIENTED X3 Objective Labs Result Diagrams: 06/23/21 06:00 06/23/21 06:00 Labs: Laboratory Results - last 24 hr 06/22/21 06/22/21 06/23/21 10:20 21:46 06:00 WBC 12.0 H 13.7 H RBC 2.55 L 2.61 L Hgb 8.1 L 8.3 L Hct 23.9 L 24.6 L MCV 93.8 D 94.3 MCH 31.8 31.9 MCHC 34.0 33.9 RDW 22.5 H 22.9 H Plt Count 164 156 Sodium Potassium Chloride Carbon Dioxide BUN Creatinine Estimated GFR BUN/Creatinine Ratio Glucose Calcium Crossmatch See Detail 06/23/21 06:00 WBC RBC Hgb Hct MCV MCH MCHC RDW Plt Count Sodium 132 L Potassium 3.9 Chloride 101 Carbon Dioxide 29 BUN 36 H Creatinine 1.04 Estimated GFR > 60.0 BUN/Creatinine Ratio 34.6 H Glucose 162 H Calcium 8.1 L Crossmatch [facility] Medical History CAD (coronary artery disease) Claudication of both lower extremities COPD (chronic obstructive pulmonary disease) HTN (hypertension) Hyperlipidemia Surgical History History of heart artery stent Social History household members: none Smoking Status: Former smoker alcohol intake: current Assessment & Plan Assessment & Plan narrative: PROBLEM LIST LEFT HIP FRACTURE. STATUS POST REPAIR ON 06/21 REACTIVE LEUKOCYTOSIS PHYSICAL DEBILITY/DECONDITIONING LEUKOCYTOSIS ANEMIA OF CHRONIC DISEASE IN A SURGEON FOR ACUTE BLOOD LOSS SECONDARY TO RECENT SURGERY HYPERTENSION HYPERNATREMIA PLAN REPEAT URINALYSIS IN THE MORNING CONTINUE CURRENT MANAGEMENT OTHERWISE PATIENT IS WORKING WITH PHYSICAL THERAPY AND OCCUPATIONAL TEAMS AWAITING PLACEMENT TO [facility] FACILITY ONCE A BED BECOMES AVAILABLE NURSING TO ENCOURAGE PATIENT TO USE INCENTIVE SPIROMETER DEVICE ORDERED FALL AND ASPIRATION PRECAUTION TO BE MAINTAINED AT ALL TIMES DAILY LABS TO FOLLOW ADDITIONAL MANAGEMENT PER CLINICAL COURSE Time Spent With Patient Critical Care time: I spent a total of [] minutes of critical care time on this patient's care today; this time is exclusive of procedural time. Quality VTE Deep Vein Thrombosis/Pulmonary Embolism Present on Admission: No
[2021-06-23 19:15] LABS: Appearance Urine UA CLEAR; Bilirubin Urine UA NEGATIVE (NEGATIVE); Color Urine UA YELLOW; Glucose Urine UA NEGATIVE (Negative); Ketones Urine UA NEGATIVE (NEGATIVE); Leukocyte Esterase Urine UA NEGATIVE (NEGATIVE); Nitrite Urine UA NEGATIVE (Negative); Occult Blood Urine UA TRACE-LYSED (Negative); Protein Urine UA NEGATIVE (Negative); Urobilinogen Urine UA 0.2 E.U./dL (0.2); pH Urine UA 6.5 (4.5-8.0)
[2021-06-23 19:33] LABS: Bacteria Urine Occasional (0-1); Culture Indicated Urine Cult Not Indicated; RBC Urine 0-1/HPF (0-5/HPF); WBC Urine 0-1/HPF (0-5/HPF)
[2021-06-23] MEDS: ATORVASTATIN 20 MG TABLET 75 MG PO (20:31)
[2021-06-23] MEDS: SODIUM CHLORIDE 0.9% FLUSH 10 ML IV (23:34)
[2021-06-24] VITALS (9 sets, daily range): BP systolic 118–140; BP diastolic 67–78; PULSE 89–109; RESP 14–20; TEMP 36.1–37.3; O2SAT 94–97
[2021-06-24] MEDS: ONDANSETRON 4 MG/2 ML INJ IV (02:12)
--- NOTE | 2021-06-24 05:57 | DI.RAD.S_ITS ---
PROCEDURE: XR KUB INDICATIONS: constipated X 3 days, vomiting TECHNIQUE: One view of the abdomen acquired. COMPARISON: [facility], CR, XR HIP W PEL IF DONE LT 2V, 06/21/2021, 18:23. FINDINGS: Surgical changes and devices: None. Bowel: Scattered small bowel and colonic gas. Multiple loops of small bowel are mildly dilated. There is prominent stool in the right colon. Soft tissues: No suspicious abdominal calcifications. Visualized solid organ contours appear normal in size. Bones: No suspicious bony lesions. Left hip screw fixation for intertrochanteric fracture. IMPRESSION: Mildly dilated loops of small bowel. Prominent stool in the right colon. Findings raise the possibility of adynamic ileus. Small bowel obstruction could have a similar appearance. Consider further evaluation with CT abdomen and pelvis. Dictated by: Jake Buckley M.D. on 06/24/2021 at 7:42 Approved by: Jake Buckley M.D. on 06/24/2021 at 7:46
[2021-06-24 06:09] LABS: Alanine Aminotransferase 28 IU/L (<50); Albumin 3.5 g/dL (3.5-5.0); Albumin Globulin Ratio 1.5 (1.0-2.8); Alkaline Phosphatase 53 U/L (38-126); Aspartate Aminotransferase 75 IU/L (17-59); BUN Creatinine Ratio 24.1 (6-22); Basophils Absolute Auto 0 /uL (0-100); Basophils Percent Auto 0.4 % (0-2); Bilirubin Total 0.9 mg/dL (0.2-1.3); Blood Urea Nitrogen 20 mg/dL (9-20); Calcium 8.7 mg/dL (8.4-10.2); Carbon Dioxide 35 mmol/L (22-32); Chloride 99 mmol/L (98-107); Eosinophils Absolute Auto 0 /uL (0-450); Eosinophils Percent Auto 0.3 % (2-4); Estimated Glomerular Filt Rate > 60.0 mL/min (>60); Globulin 2.4 g/dL (1.7-4.1); Glucose 135 mg/dL (80-110); HEMOLYSIS < 15 (0-50); Hematocrit 25.3 % (41-53); Hemoglobin 8.7 g/dL (13.5-17.5); Lymphocytes Absolute Auto 600 /uL (1100-4500); Lymphocytes Percent Auto 6.3 % (25-40); Mean Corpuscular HGB Conc 34.3 % (30-36); Mean Corpuscular Hemoglobin 32.2 PG (26-34); Mean Corpuscular Volume 93.9 fL (80-100); Monocytes Absolute Auto 600 /uL (0-900); Neutrophils Absolute Auto 8500 /uL (1500-7000); Phosphorous 1.6 mg/dL (2.3-3.7); Platelet Count 190 X10^3/uL (150-400); Potassium 3.8 mmol/L (3.4-5.1); Red Blood Cell Count 2.69 X10^6/uL (4.5-5.9); Sodium 134 mmol/L (137-145); Total Protein 5.9 g/dL (6.3-8.2); White Blood Cell Count 9.7 X10^3/uL (4.5-11.0)
[2021-06-24 06:14] LABS: Add Manual Diff / Slide Review SLIDE REVIEW
[2021-06-24] MEDS: PANTOPRAZOLE 40 MG VIAL IV (06:14)
--- NOTE | 2021-06-24 06:23 | PC.NURSE ---
Pt has c/o upset stomach, he had a 200 ml undigested food emesis and again 75 ml. BT are diminished through, last BM was on prior to coming to hospital. LORRAINE Flores notified, Pt getting and abdominal X-ray, protonix IVP and a dulcolax suppository. will continue to monitor.
[2021-06-24] MEDS: BISACODYL 10 MG SUPP PR (06:40)
[2021-06-24 07:30] LABS: Anisocytosis 2+; Poikilocytosis 2+
--- NOTE | 2021-06-24 09:05 | P.PN_ITS ---
Subjective Subjective Date Patient Seen: 06/24/21 Time Patient Seen: 09:05 Interval history: Patient is complaining of [id number] left hip pain this morning. He has had some nausea and vomiting and is currently undergoing CI WA protocol. He also received 2 units of PRBCs on 06/22/2021. The plan is to discharge to SNF when he is medically clear. Exam Vital Signs (past 8 hours): - 06/24/21 04:00 06/24/21 08:00 Temperature 98.3 F 97.4 F L Pulse Rate 89 109 H Respiratory Rate 18 16 Blood Pressure 118/77 138/78 Pulse Oximetry 95 94 Oxygen Delivery Method Room Air Oxygen Flow Rate 0 Narrative Exam Narrative: 76-year-old male, resting comfortably in bed, no acute distress, no visible tremors. Left hip dressing demonstrates mild area of the bloody discharge. Bilateral lower extremities: motor function is grossly intact, sensation is grossly intact to light touch, calves are soft and nontender to palpation. Objective Labs Result Diagrams: 06/24/21 05:45 06/24/21 05:45 Labs: Laboratory Results - last 24 hr 06/23/21 06/24/21 06/24/21 18:54 05:45 05:45 WBC 9.7 RBC 2.69 L Hgb 8.7 L Hct 25.3 L MCV 93.9 MCH 32.2 MCHC 34.3 RDW 23.0 H Plt Count 190 Neut % (Auto) 87.0 H Lymph % (Auto) 6.3 L [place] % (Auto) 6.0 Eos % (Auto) 0.3 L Baso % (Auto) 0.4 Neut # (Auto) 8500 H Lymph # (Auto) 600 L [place] # (Auto) 600 Eos # (Auto) 0 Baso # (Auto) 0 RBC Morphology Not Reportable Poikilocytosis 2+ H Anisocytosis 2+ H Sodium 134 L Potassium 3.8 Chloride 99 Carbon Dioxide 35 H BUN 20 Creatinine 0.83 Estimated GFR > 60.0 BUN/Creatinine Ratio 24.1 H Glucose 135 H Calcium 8.7 Phosphorus 1.6 L Total Bilirubin 0.9 AST 75 H ALT 28 Alkaline Phosphatase 53 Total Protein 5.9 L Albumin 3.5 Globulin 2.4 Albumin/Globulin Ratio 1.5 Urine Color Yellow Urine Appearance Clear Urine pH 6.5 Ur Specific [place] 1.010 Urine Protein Negative Urine Glucose (UA) Negative Urine Ketones Negative Urine Occult Blood Trace-lysed Urine Nitrate Negative Urine Bilirubin Negative Urine Urobilinogen 0.2 Ur Leukocyte Esterase Negative Urine RBC 0-1/hpf Urine WBC 0-1/hpf Urine Bacteria Occasional (0-1) Ur Culture Indicated? Cult not indicated PFSH Medical History CAD (coronary artery disease) Claudication of both lower extremities COPD (chronic obstructive pulmonary disease) HTN (hypertension) Hyperlipidemia Surgical History History of heart artery stent Social History household members: none Smoking Status: Former smoker alcohol intake: current Assessment & Plan Post-op Postoperative Procedures: Procedures Operation Date: 06/21/21 16:30 Actual Procedure Side Surgeon p ORIF Hip DHS Left Allison Oakley MD Postoperative day: 3 Postoperative status narrative: Postop day 3 status post open reduction internal fixation left intertrochanteric hip fracture with dynamic hip screw by Dr. Oakley June 21, 2021 Postoperative plan narrative: -Mobilize with physical therapy, Weight-bearing 100 lb on the left lower extremity. -Anemia, improving, secondary to blood loss during surgery and patient received 2 units of packed red blood cells on 06/22/2021. -Hospitalist following as well for COPD, CAD, hypertension, alcohol abuse -Likely discharge to [facility] for additional rehab when medically stable and cleared by hospitalist Quality VTE Deep Vein Thrombosis/Pulmonary Embolism Present on Admission: No
[2021-06-24] MEDS: polyethylene glycoL 3350 17 GM POWD.PACK PO ×2 (09:21→20:47)
[2021-06-24] MEDS: MULTIVITAMIN 1 TABLET 1 TAB PO (09:21)
[2021-06-24] MEDS: ASPIRIN EC 81 MG TABLET PO ×2 (09:22→20:47)
[2021-06-24] MEDS: THIAMINE 100 MG TABLET PO (09:22)
[2021-06-24] MEDS: CLOPIDOGREL 75 MG TABLET PO (09:22)
[2021-06-24] MEDS: OXYCODONE IR 5 MG TABLET PO ×2 (09:22→20:48)
[2021-06-24] MEDS: FOLIC ACID 1 MG TABLET PO (09:23)
[2021-06-24] MEDS: ACETAMINOPHEN 325 MG TABLET 975 MG PO ×3 (09:23→20:46)
[2021-06-24] MEDS: SODIUM,POTASSIUM PHOSPHATES PACKET 2 EACH PO ×2 (09:23→13:45)
[2021-06-24] MEDS: DOCUSATE 100 MG CAPSULE PO ×2 (09:46→20:51)
[2021-06-24] MEDS: FLEETS ENEMA 1 EACH PR (09:46)
[2021-06-24] MEDS: SODIUM CHLORIDE 0.9% FLUSH 10 ML IV ×2 (09:46→20:49)
--- NOTE | 2021-06-24 10:31 | CM.DPNOTE ---
Addendum entered by Jovanna Wilkerson 06/24/21 10:57: Also faxed these clinicals to [facility] and received fax conf. Jovanna Wilkerson CM Asst. Original Note: Emailed updated clinicals to Raquel at [facility]. Received confirm. Jovanna Wilkerson CM Asst.
--- NOTE | 2021-06-24 11:30 | PT.IPTN ---
Current Diagnoses Fracture of unspecified part of neck of left femur, initial encounter for closed fracture (06/21/21) Surgery Performed Operation Date: 06/21/21 16:30 Actual Procedures p ORIF Hip DHS(Left) - Allison Oakley MD Physical Therapy Treatment Note M2 PT-IP Current Condition Start: 06/22/21 09:34 Freq: Status: Active Protocol: Document 06/23/21 10:47 DLM (Rec: 06/23/21 11:47 DLM [id number]) Physical Therapy Current Condition Current Condition Evaluation Date 06/22/21 Treatment Diagnosis Left femur ORIF with dynamic screw, impaired mobility/gait Onset Date 06/21/21 M3 PT-IP Subjective Start: 06/22/21 09:34 Freq: Status: Active Protocol: Document 06/24/21 11:11 KS (Rec: 06/24/21 12:44 KS [id number]) Subjective Physical Therapy Visit Type Type Treatment Note Visit Start Time 11:11 Visit Stop Time 11:30 Total Visit Minutes 19 Number of MECHANICAL TECHNOLOGIST Visits 1 Physical Therapy Visit Comments Patient Comments Pt agreeable to working w/ therapy. Patient Goals go to rehab to get stronger before going home Therapy Pain Assessment Pain When Pain Assessed During Mobility Pain Present Pain Present Pain Reported M4 PT-IP Mobility and Gait Start: 06/22/21 09:34 Freq: Status: Active Protocol: Document 06/24/21 11:11 KS (Rec: 06/24/21 12:44 KS [id number]) PT-Bed Mobility Assessment Supine to Sit Supine to Sit Moderate Assistance,1 Person Assistance,Head of Bed Elevated Scooting Scooting to Edge of Bed Moderate Assistance PT-Transfer Assessment Sit to and From Stand Sit to and from Stand Moderate Assistance,1 Person Assistance,Use of Upper Extremities Equipment Transfer Assistive Device Gait Belt,Front Wheeled Walker Transfers Transfer Destination Chair Transfer Technique Pt ambulated w/ FWW Transfer Ability Level of Assist Moderate Assistance,1 Person Assistance,Use of Upper Extremities Comments Mobility Comments Pt in bed upon arrival from therapy and reporting L hip/ leg pain that increases w/ mobility. Pt mod A for sup<> sit and scooting EOB, Mod A and cues for hand placement for sit<>stand from FWW. Pt able to maintain PWB during stand step pivot to chair and then was able to ambulate additional 6 ft forward and 6 ft back w/ FWW. Pt reported increased fatigue and mild SOB and requested to sit down. Pt able to complete 1x10 bilateral ankle pumps, quad sets, and glute sets and was left in chair w/ all needs in reach and chair alarm on. Gait Assessment Gait Gait Assistance Required: Minimum Assistance,1 Person Assist Distance (Feet) 15 Able to Maintain Weight Bearing Status Yes During Gait Assistive Devices Assistive Device Gait Belt,Front Wheeled Walker Orthotic/Prosthetic Devices or Brace: No Gait Deviations General Gait Pattern Antalgic,Decreased Stride Length,Decreased Feet Clearance,Flexed Trunk,Step-to Gait Factors Limiting Gait Function Factors Limiting Gait Function Decreased Activity Tolerance, Decreased Strength,Difficulty Following Directions, Incoordination,Pain,Poor Balance,Respiratory Distress Comments Gait Comments Please refer to mobility section for details. PT-Balance Assessment Sitting Balance and Reactions Static Sitting Balance Ability Good Dynamic Sitting Balance Ability Good Standing Balance and Reactions Static Standing Balance Ability Fair Dynamic Standing Balance Ability Fair Device Used FWW M5 PT-IP Objective Assessments Start: 06/22/21 09:34 Freq: Status: Active Protocol: Document 06/22/21 11:33 MB (Rec: 06/22/21 11:59 MB [id number]) Orientation Orientation/Cognition Level of Alertness Confusional State Orientation Name,Age,Birthday,Month Language Function Ability No Deficits Noted Safety Awareness Decreased Safety Awareness Memory Description Short Term Impaired,Snf Impaired Comments Pt does state that he has trouble sleeping in the hospital and his mind is active. Gross Range of Motion Upper Extremity ROM Assessment Within Functional Limits Lower Extremity ROM Assessment Bilaterally Impaired Impairments Movement of right LE bothers his LLE and he uses his hands to draw up his right leg to his chest in sitting when PT asks him to move Strength Upper Extremity Strength Assessment Within Functional Limits Lower Extremity Strength Assessment Bilaterally Impaired Comments Strength Comments MMT deferred given pain M6 PT-IP Treatment Start: 06/22/21 09:34 Freq: Status: Active Protocol: Document 06/24/21 11:11 KS (Rec: 06/24/21 12:44 KS [id number]) Physical Therapy Treatment Exercises Exercises Ankle Pumps,Gluteal Sets,Quad Sets Education Education Provided Weight Bearing Status,Safety M7 PT-IP Assessment and Plan Start: 06/22/21 09:34 Freq: Status: Active Protocol: Document 06/24/21 11:11 KS (Rec: 06/24/21 12:44 KS [id number]) PT Summary Assessment and Plan Potential Rehabilitation Potential Fair Status of Condition at Evaluation Evolving Summary Impairments Pain,ROM,Strength,Balance, Coordination,Cognition,Bed Mobility,Transfers,Gait, Activity Tolerance Progress Towards Goals Slow Progress due to Activity Tolerance Assessment Summary Pt continues to require Mod A for bed mobility, but was able to sit<>Stand from bed w/ Mod A x1 today w/ cues to push up from bed. He also was able to increase ambulation distance to ~15 ft w/ FWW and Min A while maintaining PWB. He had quick approach to fatigue and SOB during activity. He will require SNF to improve strength, safety, and functional independence. Goals Bed Mobility Goal Standby Assistance Transfer Goal Standby Assistance,Front Wheeled Walker Gait Goal Contact Guard Assistance,Front Wheel Walker Gait Distance 25 feet Days to Meet Goals 5 Frequency of Treatment Frequency Of Treatment Twice a Day Treatment Plan Physical Therapy Treatment Plan Bed Mobility Training,Transfer Training,Gait Training, Therapeutic Exercise,Balance Retraining,Post Op Education, Discharge Planning,Hot or Cold Pack,Neuromuscular Re-ed Other Recommendations and Next Treatment focus on transfers until pt Focus better able to manage PWB left LE Precautions Other Precautions CIWA Weight Bearing Status Weight Bearing Status Partial Weight Bearing Allowed Weight Bearing Amount (enter % < or =100# LLE or #) (%) Recommendations To Nursing Amount of Assist Needed 1 Person Assist,2 Person Assist Discharge Recommendations PT Discharge Recommendations SNF Rehab Equipment Needed for Home Before pt owns a fWW Discharge Transportation Needs at Discharge Wheelchair/Cabulance
[2021-06-24] MEDS: SUCRALFATE 1 GM TABLET PO ×3 (11:58→20:46)
--- NOTE | 2021-06-24 12:40 | PC.NURSE ---
Addendum entered by Mariposa Villatoro R.N. 06/24/21 18:44: placed patient on general diet this evening, but he has no appetite. pt tolerated full liquid. he had another bowel movement. pt aware he will be going to [facility] tomorrow. updated daughter today. she would like to be notified when pt leaves . 2PA to bs. scds. cms+. Original Note: pt has no abd pain. pt had a medium size Bm after enema. no nausea today.
[2021-06-24 13:02] LABS: COVID19 -Nasal RAPID Negative (Negative)
--- NOTE | 2021-06-24 14:14 | PT.IPTN ---
Current Diagnoses Fracture of unspecified part of neck of left femur, initial encounter for closed fracture (06/21/21) Surgery Performed Operation Date: 06/21/21 16:30 Actual Procedures p ORIF Hip DHS(Left) - Allison Oakley MD Physical Therapy Treatment Note M2 PT-IP Current Condition Start: 06/22/21 09:34 Freq: Status: Active Protocol: Document 06/23/21 10:47 DLM (Rec: 06/23/21 11:47 DLM [id number]) Physical Therapy Current Condition Current Condition Evaluation Date 06/22/21 Treatment Diagnosis Left femur ORIF with dynamic screw, impaired mobility/gait Onset Date 06/21/21 M3 PT-IP Subjective Start: 06/22/21 09:34 Freq: Status: Active Protocol: Document 06/24/21 13:53 KS (Rec: 06/24/21 14:22 KS [id number]) Subjective Physical Therapy Visit Type Type Treatment Note Visit Start Time 13:53 Visit Stop Time 14:14 Total Visit Minutes 21 Number of DYER ASSISTANT Visits 2 Physical Therapy Visit Comments Patient Comments Pt agreeable to working w/ therapy. Patient Goals go to rehab to get stronger before going home Therapy Pain Assessment Pain When Pain Assessed During Mobility Pain Present Pain Present Pain Reported Location Left hip Scale Used not quantified Description Aching,With Movement Pain Behaviors Facial Grimacing,Wincing Pain Management Techniques Re-positioning M4 PT-IP Mobility and Gait Start: 06/22/21 09:34 Freq: Status: Active Protocol: Document 06/24/21 13:53 KS (Rec: 06/24/21 14:22 KS [id number]) PT-Bed Mobility Assessment Supine to Sit Supine to Sit Moderate Assistance,1 Person Assistance,Head of Bed Elevated Sit to Supine Sit to Supine Moderate Assistance,1 Person Assistance Scooting Scooting to Edge of Bed Moderate Assistance PT-Transfer Assessment Sit to and From Stand Sit to and from Stand Moderate Assistance,Maximum Assistance,1 Person Assistance ,Use of Upper Extremities Equipment Transfer Assistive Device Gait Belt,Front Wheeled Walker Transfers Transfer Destination Bed,Chair Transfer Technique Pt ambulated w/ FWW Transfer Ability Level of Assist Moderate Assistance,1 Person Assistance,Use of Upper Extremities Comments Mobility Comments Pt in bed upon arrival from therapy and agreeable to ambulation. Mod A for sup<>sit and scooting EOB w/ HOB elevated. Pt sit<>stand w/ FWW and cues for hand placement Mod A. He then ambulated ~20 ft around room w/ FWW and use of BUE to maintain PWB of LLE. He requested seated rest break, ~3 min and then required Max A for sit<>stand from chair and then ambulated additional 20 ft w/ FWW CGA w. 1 min standing rest break before returning to bed. Pt is limited in distance by weakness and mild SOB. He returned to bed Mod A for LLE guidance into bed. Pt left in bed w/ all needs in reach, alarm, and SCDs on. Gait Assessment Gait Gait Assistance Required: Contact Guard Assist,Minimum Assistance,1 Person Assist Distance (Feet) 40 Able to Maintain Weight Bearing Status Yes During Gait Assistive Devices Assistive Device Gait Belt,Front Wheeled Walker Orthotic/Prosthetic Devices or Brace: No Gait Deviations General Gait Pattern Antalgic,Decreased Stride Length,Decreased Feet Clearance,Flexed Trunk,Step-to Gait Factors Limiting Gait Function Factors Limiting Gait Function Decreased Activity Tolerance, Decreased Strength,Difficulty Following Directions, Incoordination,Pain,Poor Balance,Respiratory Distress Comments Gait Comments Please refer to mobility section for details. PT-Balance Assessment Sitting Balance and Reactions Static Sitting Balance Ability Good Dynamic Sitting Balance Ability Good Standing Balance and Reactions Static Standing Balance Ability Fair Dynamic Standing Balance Ability Fair Device Used FWW M5 PT-IP Objective Assessments Start: 06/22/21 09:34 Freq: Status: Active Protocol: Document 06/22/21 11:33 MB (Rec: 06/22/21 11:59 MB [id number]) Orientation Orientation/Cognition Level of Alertness Confusional State Orientation Name,Age,Birthday,Month Language Function Ability No Deficits Noted Safety Awareness Decreased Safety Awareness Memory Description Short Term Impaired,Snf Impaired Comments Pt does state that he has trouble sleeping in the hospital and his mind is active. Gross Range of Motion Upper Extremity ROM Assessment Within Functional Limits Lower Extremity ROM Assessment Bilaterally Impaired Impairments Movement of right LE bothers his LLE and he uses his hands to draw up his right leg to his chest in sitting when PT asks him to move Strength Upper Extremity Strength Assessment Within Functional Limits Lower Extremity Strength Assessment Bilaterally Impaired Comments Strength Comments MMT deferred given pain M6 PT-IP Treatment Start: 06/22/21 09:34 Freq: Status: Active Protocol: Document 06/24/21 13:53 KS (Rec: 06/24/21 14:22 KS [id number]) Physical Therapy Treatment Exercises Exercises Ankle Pumps,Gluteal Sets Education Education Provided Weight Bearing Status,Safety M7 PT-IP Assessment and Plan Start: 06/22/21 09:34 Freq: Status: Active Protocol: Document 06/24/21 13:53 KS (Rec: 06/24/21 14:22 KS [id number]) PT Summary Assessment and Plan Potential Rehabilitation Potential Fair Status of Condition at Evaluation Evolving Summary Impairments Pain,ROM,Strength,Balance, Coordination,Cognition,Bed Mobility,Transfers,Gait, Activity Tolerance Progress Towards Goals Slow Progress due to Activity Tolerance Assessment Summary Pt continues to require significant assist for bed mobility and transfers, but showed increased tolerance for ambulation this PM and was able to complete 2x 20 ft w/ FWW CGA to Min A. He had difficulty standing from chair >bed, requiring Max A and cues . He verbalized fatigue following ambulation but had good willingness to try. He will require SNF to improve strength, safety, and functional independence. Goals Bed Mobility Goal Standby Assistance Transfer Goal Standby Assistance,Front Wheeled Walker Gait Goal Contact Guard Assistance,Front Wheel Walker Gait Distance 25 feet Days to Meet Goals 5 Frequency of Treatment Frequency Of Treatment Twice a Day Treatment Plan Physical Therapy Treatment Plan Bed Mobility Training,Transfer Training,Gait Training, Therapeutic Exercise,Balance Retraining,Post Op Education, Discharge Planning,Hot or Cold Pack,Neuromuscular Re-ed Other Recommendations and Next Treatment focus on transfers until pt Focus better able to manage PWB left LE Precautions Other Precautions CIWA Weight Bearing Status Weight Bearing Status Partial Weight Bearing Allowed Weight Bearing Amount (enter % < or =100# LLE or #) (%) Recommendations To Nursing Amount of Assist Needed 1 Person Assist,2 Person Assist Discharge Recommendations PT Discharge Recommendations SNF Rehab Equipment Needed for Home Before pt owns a fWW Discharge Transportation Needs at Discharge Wheelchair/Cabulance
--- NOTE | 2021-06-24 14:39 | PM.PN.1 ---
Subjective Subjective Date Patient Seen: 06/24/21 Interval history: 76-YEAR-OLD MALE WITH SIGNIFICANT PHYSICAL DEBILITY ADMITTED TO THE HOSPITAL AFTER FALL WITH FRACTURE HE IS STATUS POST REPAIR SINCE 06/21. HE DID NOT HAVE ANY SIGNIFICANT COMPLAINTS ONCE AGAIN THIS MORNING HE REPORTED SOME MILD NAUSEA. NO VOMITING NO CHEST PAIN. NO CHEST PRESSURE. SPOKE TO NURSING AND PATIENT HAD SOME INSTANCE OF ABDOMINAL PAIN AND VOMITING OVERNIGHT ABDOMINAL FILM DID NOT REVEAL ANY OBSTRUCTION HOWEVER CONSTIPATION IS SUSPECTED Exam Vital Signs (past 8 hours): - 06/24/21 08:00 06/24/21 09:23 Temperature 97.4 F L Pulse Rate 109 H Respiratory Rate 16 Blood Pressure 138/78 Pulse Oximetry 94 94 Oxygen Delivery Method Room Air Oxygen Flow Rate 0 Narrative Exam Narrative: NO ACUTE DISTRESS.? PATIENT IS ALERT ORIENTED X2. VITAL SIGNS STABLE HEAD ATRAUMATIC NORMOCEPHALIC NECK : SUPPLE WITHOUT ADENOPATHY NO CAROTID BRUITS EYE:? EOMI, PERRLA, NORMAL CONJUNCTIVA; NO JAUNDICE CHEST:? REGULAR RATE.? ? NO RUBS.? PMI IS NON DISPLACED.? NO MURMURS; NORMAL S1-S2 PULMONARY:? DECREASED BS OVER THE BASES.? MILD BIBASILAR CRACKLES NOTED; NO INCREASED DULLNESS TO PERCUSSION ABDOMEN:? SOFT.? NONTENDER.? NONDISTENDED.? BOWEL SOUNDS ARE PRESENT IN ALL 4 QUADRANTS.? NO MASS. EXTREMITIES: NO EDEMA..? NO CYANOSIS CLUBBING NOTED. NEURO:? CRANIAL NERVES 2-12 GROSSLY INTACT. NO FOCAL NEUROLOGICAL DEFICIT NOTED. MSK:? NO DEFORMITY.? POOR MUSCULATURE PSYCH :? CALM AND COOPERATIVE.? ALERT AWAKE ORIENTED X2 Objective Labs Result Diagrams: 06/24/21 05:45 06/24/21 05:45 Labs: Laboratory Results - last 24 hr 06/23/21 06/24/21 06/24/21 18:54 05:45 05:45 WBC 9.7 RBC 2.69 L Hgb 8.7 L Hct 25.3 L MCV 93.9 MCH 32.2 MCHC 34.3 RDW 23.0 H Plt Count 190 Neut % (Auto) 87.0 H Lymph % (Auto) 6.3 L [place] % (Auto) 6.0 Eos % (Auto) 0.3 L Baso % (Auto) 0.4 Neut # (Auto) 8500 H Lymph # (Auto) 600 L [place] # (Auto) 600 Eos # (Auto) 0 Baso # (Auto) 0 RBC Morphology Not Reportable Poikilocytosis 2+ H Anisocytosis 2+ H Sodium 134 L Potassium 3.8 Chloride 99 Carbon Dioxide 35 H BUN 20 Creatinine 0.83 Estimated GFR > 60.0 BUN/Creatinine Ratio 24.1 H Glucose 135 H Calcium 8.7 Phosphorus 1.6 L Total Bilirubin 0.9 AST 75 H ALT 28 Alkaline Phosphatase 53 Total Protein 5.9 L Albumin 3.5 Globulin 2.4 Albumin/Globulin Ratio 1.5 Urine Color Yellow Urine Appearance Clear Urine pH 6.5 Ur Specific George 1.010 Urine Protein Negative Urine Glucose (UA) Negative Urine Ketones Negative Urine Occult Blood Trace-lysed Urine Nitrate Negative Urine Bilirubin Negative Urine Urobilinogen 0.2 Ur Leukocyte Esterase Negative Urine RBC 0-1/hpf Urine WBC 0-1/hpf Urine Bacteria Occasional (0-1) Ur Culture Indicated? Cult not indicated SARS-CoV-2 (PCR) 06/24/21 11:37 WBC RBC Hgb Hct MCV MCH MCHC RDW Plt Count Neut % (Auto) Lymph % (Auto) [place] % (Auto) Eos % (Auto) Baso % (Auto) Neut # (Auto) Lymph # (Auto) [place] # (Auto) Eos # (Auto) Baso # (Auto) RBC Morphology Poikilocytosis Anisocytosis Sodium Potassium Chloride Carbon Dioxide BUN Creatinine Estimated GFR BUN/Creatinine Ratio Glucose Calcium Phosphorus Total Bilirubin AST ALT Alkaline Phosphatase Total Protein Albumin Globulin Albumin/Globulin Ratio Urine Color Urine Appearance Urine pH Ur Specific George Urine Protein Urine Glucose (UA) Urine Ketones Urine Occult Blood Urine Nitrate Urine Bilirubin Urine Urobilinogen Ur Leukocyte Esterase Urine RBC Urine WBC Urine Bacteria Ur Culture Indicated? SARS-CoV-2 (PCR) Negative [facility] Medical History CAD (coronary artery disease) Claudication of both lower extremities COPD (chronic obstructive pulmonary disease) HTN (hypertension) Hyperlipidemia Surgical History History of heart artery stent Social History household members: none Smoking Status: Former smoker alcohol intake: current Assessment & Plan Assessment & Plan narrative: PROBLEM LIST LEFT HIP FRACTURE.? STATUS POST REPAIR ON 06/21. STABLE. ORTHOPEDIC ON BOARD REACTIVE LEUKOCYTOSIS. RESOLVED PHYSICAL DEBILITY/DECONDITIONING. PT AND OT ON BOARD CONSTIPATION. RESOLVED ANEMIA OF CHRONIC DISEASE IN A SURGEON FOR ACUTE BLOOD LOSS SECONDARY TO RECENT SURGERY HYPERTENSION PER HISTORY. AWARE HYPONATREMIA. MILD. MONITOR ONLY PLAN 1/3 ASSISTANCE FROM THE SURGICAL TEAM GREATLY APPRECIATED LABS REMAIN STABLE PATIENT REMAINED AFEBRILE NO SIGNS OF ACUTE COMPLICATION POSTOPERATIVELY PATIENT HAS SOME ABDOMINAL DISCOMFORT OVERNIGHT WHICH HAS RESOLVED AT THIS POINT WHICH WAS LIKELY DUE TO TO CONSTIPATION ASSOCIATED WITH OPIOIDS AND DECREASED MOBILITY STARTED ON MIRALAX B.I.D. WILL ALSO ADD SENOKOT NIGHTLY WELL DOCUSATE OTHERWISE PATIENT CONTINUED TO SHOW SIGNIFICANT CLINICAL IMPROVEMENT SPOKE TO CASE MANAGEMENT IN REGARD TO DISCHARGE PLANNING POSSIBLE DISCHARGE TO SNF FACILITY IN THE MORNING IF A BED IS AVAILABLE 1/2 REPEAT URINALYSIS IN THE MORNING CONTINUE CURRENT MANAGEMENT OTHERWISE PATIENT IS WORKING WITH PHYSICAL THERAPY AND OCCUPATIONAL TEAMS AWAITING PLACEMENT TO SNF FACILITY ONCE A BED BECOMES AVAILABLE ? NURSING TO ENCOURAGE PATIENT TO USE INCENTIVE SPIROMETER DEVICE ORDERED FALL AND ASPIRATION PRECAUTION TO BE MAINTAINED AT ALL TIMES DAILY LABS TO FOLLOW ADDITIONAL MANAGEMENT PER CLINICAL COURSE Time Spent With Patient Critical Care time: I spent a total of [] minutes of critical care time on this patient's care today; this time is exclusive of procedural time. Quality VTE Deep Vein Thrombosis/Pulmonary Embolism Present on Admission: No
--- NOTE | 2021-06-24 16:29 | CM.DPC ---
DCP Continued: Reviewed chart. Provider reports that patient medically stable for d/c to SNF. [employer] B[employer]ER met with patient to discuss plan. Patient reports that his first SNF choice is [facility]. Patient made aware that if other facilities can accept him today and [facility] does not have bed that we will need second choice. Patient agreeable. CM team placed call to [facility], [facility], and [facility]. Initially [facility] indicated that they could take patient today however, they are unable to locate transport. [facility] can accept tomorrow 06-25-21. [employer]ER spoke with provider and d/c scheduled for tomorrow in AM. RN updated. Patient pleased that he can go to [facility]. CM team to finalize d/c in AM. P: [facility] tomorrow 06-25-21. ALEJO
[2021-06-24] MEDS: SENNOSIDES 8.6 MG TABLET 17.2 MG PO (20:42)
[2021-06-24] MEDS: ATORVASTATIN 20 MG TABLET 75 MG PO (20:43)
[2021-06-24] MEDS: FAMOTIDINE 20 MG TABLET PO (20:46)
[2021-06-25 01:00] VITALS: BP 137/85; PULSE 101; RESP 14; TEMP 37.1; O2SAT 97
[2021-06-25] MEDS: OXYCODONE IR 5 MG TABLET PO (04:56)
[2021-06-25 04:57] VITALS: BP 124/73; PULSE 104; RESP 18; TEMP 36.4; O2SAT 95
[2021-06-25 06:48] LABS: Basophils Absolute Auto 100 /uL (0-100); Basophils Percent Auto 1.2 % (0-2); Eosinophils Absolute Auto 100 /uL (0-450); Eosinophils Percent Auto 2.5 % (2-4); Hematocrit 22.9 % (41-53); Hemoglobin 7.9 g/dL (13.5-17.5); Lymphocytes Absolute Auto 500 /uL (1100-4500); Mean Corpuscular HGB Conc 34.3 % (30-36); Mean Corpuscular Hemoglobin 32.5 PG (26-34); Mean Corpuscular Volume 94.6 fL (80-100); Monocytes Absolute Auto 500 /uL (0-900); Monocytes Percent Auto 10.5 % (3-14); Neutrophils Absolute Auto 3800 /uL (1500-7000); Neutrophils Percent Auto 75.8 % (50-75); Platelet Count 187 X10^3/uL (150-400); Red Blood Cell Count 2.42 X10^6/uL (4.5-5.9); Red Cell Distribution Width 22.7 % (11.6-14.8)
[2021-06-25 06:50] LABS: Add Manual Diff / Slide Review SLIDE REVIEW
[2021-06-25 06:56] LABS: Alanine Aminotransferase 34 IU/L (<50); Albumin 3.1 g/dL (3.5-5.0); Albumin Globulin Ratio 1.4 (1.0-2.8); Alkaline Phosphatase 50 U/L (38-126); Aspartate Aminotransferase 73 IU/L (17-59); BUN Creatinine Ratio 17.2 (6-22); Bilirubin Total 0.8 mg/dL (0.2-1.3); Blood Urea Nitrogen 15 mg/dL (9-20); Calcium 8.2 mg/dL (8.4-10.2); Carbon Dioxide 33 mmol/L (22-32); Chloride 100 mmol/L (98-107); Estimated Glomerular Filt Rate > 60.0 mL/min (>60); Globulin 2.2 g/dL (1.7-4.1); Glucose 119 mg/dL (80-110); HEMOLYSIS < 15 (0-50); Phosphorous 2.4 mg/dL (2.3-3.7); Potassium 3.7 mmol/L (3.4-5.1); Sodium 135 mmol/L (137-145); Total Protein 5.3 g/dL (6.3-8.2)
[2021-06-25 07:00] VITALS: O2SAT 95
[2021-06-25 07:26] LABS: Anisocytosis 1+; Poikilocytosis 1+
[2021-06-25] MEDS: SUCRALFATE 1 GM TABLET PO ×2 (08:02→11:36)
[2021-06-25 08:20] VITALS: BP 106/62; PULSE 105; RESP 18; TEMP 37.1; O2SAT 95
[2021-06-25] MEDS: polyethylene glycoL 3350 17 GM POWD.PACK PO (08:23)
[2021-06-25] MEDS: DOCUSATE 100 MG CAPSULE PO (08:23)
[2021-06-25] MEDS: ASPIRIN EC 81 MG TABLET PO (08:23)
[2021-06-25] MEDS: FAMOTIDINE 20 MG TABLET PO (08:23)
[2021-06-25] MEDS: FOLIC ACID 1 MG TABLET PO (08:23)
[2021-06-25] MEDS: ACETAMINOPHEN 325 MG TABLET 975 MG PO (08:23)
[2021-06-25] MEDS: MULTIVITAMIN 1 TABLET 1 TAB PO (08:23)
[2021-06-25] MEDS: CLOPIDOGREL 75 MG TABLET PO (08:23)
[2021-06-25] MEDS: THIAMINE 100 MG TABLET PO (08:26)
[2021-06-25] MEDS: SODIUM CHLORIDE 0.9% FLUSH 10 ML IV (08:26)
[2021-06-25 08:37] VITALS: O2SAT 95
[2021-06-25] MEDS: PRENATAL VIT,CALC/IRON/FOLIC 1 TABLET 1 TAB PO (10:21)
[2021-06-25] MEDS: CHOLECALCIFEROL (VITAMIN D3) 400 UNIT TABLET 800 UNIT PO (10:21)
[2021-06-25] MEDS: ASCORBIC ACID 500 MG TABLET PO (10:22)
[2021-06-25] MEDS: CYANOCOBALAMIN (VITAMIN B-12) 100 MCG TABLET PO (10:22)
--- NOTE | 2021-06-25 10:29 | PT.IPTN ---
Current Diagnoses Fracture of unspecified part of neck of left femur, initial encounter for closed fracture (06/21/21) Surgery Performed Operation Date: 06/21/21 16:30 Actual Procedures p ORIF Hip DHS(Left) - Allison Oakley MD Physical Therapy Treatment Note M2 PT-IP Current Condition Start: 06/22/21 09:34 Freq: Status: Active Protocol: Document 06/23/21 10:47 DLM (Rec: 06/23/21 11:47 DLM [id number]) Physical Therapy Current Condition Current Condition Evaluation Date 06/22/21 Treatment Diagnosis Left femur ORIF with dynamic screw, impaired mobility/gait Onset Date 06/21/21 M3 PT-IP Subjective Start: 06/22/21 09:34 Freq: Status: Active Protocol: Document 06/25/21 10:12 KS (Rec: 06/25/21 11:56 KS [id number]) Subjective Physical Therapy Visit Type Type Treatment Note Visit Start Time 10:12 Visit Stop Time 10:29 Total Visit Minutes 17 Number of 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 Patient Goals go to rehab to get stronger before going home Therapy Pain Assessment Pain When Pain Assessed During Mobility Pain Present Pain Present Pain Reported M4 PT-IP Mobility and Gait Start: 06/22/21 09:34 Freq: Status: Active Protocol: Document 06/25/21 10:12 KS (Rec: 06/25/21 11:56 KS [id number]) PT-Bed Mobility Assessment Supine to Sit Supine to Sit Minimal Assistance,1 Person Assistance,Head of Bed Elevated,Bedrails Scooting Scooting to Edge of Bed Minimal Assistance PT-Transfer Assessment Sit to and From Stand Sit to and from Stand Moderate Assistance,1 Person Assistance,Use of Upper Extremities Equipment Transfer Assistive Device Gait Belt,Front Wheeled Walker Transfers Transfer Destination Chair Transfer Technique Pt ambulated w/ FWW Transfer Ability Level of Assist Moderate Assistance,1 Person Assistance,Use of Upper Extremities Comments Mobility Comments Pt in bed upon arrival from therapy and agreeable to work on ambulation. Min A fot sup<> Sit w/ HOB elevated and scooting EOB. Once EOB, pt sit <>stand w/ FWW Mod A and cues for hand placement. Pt then ambulated `25 ft around room w / FWW CGA. He then reported fatigue and requested to sit in chair. Pt demonstrated good use of FWW and ability to use BUE to adhere to weightbearing restriction during ambulation. After sitting he completed 1x10 bilateral ankle pumps, quad sets, and glute sets. Pt left in chair w/ alarm on and all needs in reach. Gait Assessment Gait Gait Assistance Required: Contact Guard Assist,1 Person Assist Distance (Feet) 25 Able to Maintain Weight Bearing Status Yes During Gait Assistive Devices Assistive Device Gait Belt,Front Wheeled Walker Orthotic/Prosthetic Devices or Brace: No Gait Deviations General Gait Pattern Antalgic,Decreased Stride Length,Decreased Feet Clearance,Flexed Trunk,Step-to Gait Factors Limiting Gait Function Factors Limiting Gait Function Decreased Activity Tolerance, Decreased Strength,Difficulty Following Directions, Incoordination,Pain,Poor Balance,Respiratory Distress Comments Gait Comments Please refer to mobility section for details. PT-Balance Assessment Sitting Balance and Reactions Static Sitting Balance Ability Good Dynamic Sitting Balance Ability Good Standing Balance and Reactions Static Standing Balance Ability Fair Dynamic Standing Balance Ability Fair Device Used FWW M5 PT-IP Objective Assessments Start: 06/22/21 09:34 Freq: Status: Active Protocol: Document 06/22/21 11:33 MB (Rec: 06/22/21 11:59 MB [id number]) Orientation Orientation/Cognition Level of Alertness Confusional State Orientation Name,Age,Birthday,Month Language Function Ability No Deficits Noted Safety Awareness Decreased Safety Awareness Memory Description Short Term Impaired,Business Analyst Impaired Comments Pt does state that he has trouble sleeping in the hospital and his mind is active. Gross Range of Motion Upper Extremity ROM Assessment Within Functional Limits Lower Extremity ROM Assessment Bilaterally Impaired Impairments Movement of right LE bothers his LLE and he uses his hands to draw up his right leg to his chest in sitting when PT asks him to move Strength Upper Extremity Strength Assessment Within Functional Limits Lower Extremity Strength Assessment Bilaterally Impaired Comments Strength Comments MMT deferred given pain M6 PT-IP Treatment Start: 06/22/21 09:34 Freq: Status: Active Protocol: Document 06/25/21 10:12 KS (Rec: 06/25/21 11:56 KS [id number]) Physical Therapy Treatment Exercises Exercises Ankle Pumps,Gluteal Sets,Quad Sets Education Education Provided Weight Bearing Status,Safety M7 PT-IP Assessment and Plan Start: 06/22/21 09:34 Freq: Status: Active Protocol: Document 06/25/21 10:12 KS (Rec: 06/25/21 11:56 KS [id number]) PT Summary Assessment and Plan Potential Rehabilitation Potential Fair Status of Condition at Evaluation Evolving Summary Impairments Pain,ROM,Strength,Balance, Coordination,Cognition,Bed Mobility,Transfers,Gait, Activity Tolerance Progress Towards Goals Slow Progress due to Activity Tolerance Assessment Summary Pt showed improvements w/ bed mobility and transfers this AM , but remains limited in mobility by weakness and low toelrance for activity. Able to ambulate ~25 ft w/ FWW while maintaining wb status. He will require SNF to improve strength and functional mobility. Goals Bed Mobility Goal Standby Assistance Transfer Goal Standby Assistance,Front Wheeled Walker Gait Goal Contact Guard Assistance,Front Wheel Walker Gait Distance 25 feet Days to Meet Goals 5 Frequency of Treatment Frequency Of Treatment Twice a Day Treatment Plan Physical Therapy Treatment Plan Bed Mobility Training,Transfer Training,Gait Training, Therapeutic Exercise,Balance Retraining,Post Op Education, Discharge Planning,Hot or Cold Pack,Neuromuscular Re-ed Other Recommendations and Next Treatment transfers and ambulation w/ Focus FWW, increase ambulation distance Precautions Other Precautions CIWA Weight Bearing Status Weight Bearing Status Partial Weight Bearing Allowed Weight Bearing Amount (enter % < or =100# LLE or #) (%) Recommendations To Nursing Amount of Assist Needed 1 Person Assist,2 Person Assist Discharge Recommendations PT Discharge Recommendations SNF Rehab Equipment Needed for Home Before pt owns a fWW Discharge Transportation Needs at Discharge Wheelchair/Cabulance
--- NOTE | 2021-06-25 10:49 | PM.DS.1 ---
History of Present Illness History of Present Illness Date Patient Seen: 06/25/21 Chief complaint: Fall / Lt hip pain Narrative: History of Present Illness History of Present Illness Date Patient Seen:?06/21/21 Time Patient Seen:?15:30 Narrative: Mr. Anderson is a 76M with PMH HTN, HL, CAD, COPD who presents with a fall. He states he got up to use the restroom and then fell. He does not believe he lost consciousness, he did not have a head strike. He says he has vertigo chronically. He drinks daily, and appears mildly intoxicated. He take aspirin and plavix daily. He has not had, nor is having any chest pain or shortness of breath or any recent COPD exacerbation. He was unable to ambulate after the fall. He called EMS In the ED workup was done, vitals notable for patient afebrile, heart rate in 100s. Labs notable for WBC 10.5, hgb 10.5, plts 300. creatinine 0.86. troponin negative, ast/alt 69/52. EtOH 124. UA negative. COVID negative. RSV positive. Chest xray shows left 7th rib fracture. Hip xray shows left intratrochanteric femur fracture. He was given pain medications. Ortho consulted. He was admitted for further treatment. Family history: mother with thyroid cancer Social work: drinks daily, former smoker Discharge Providers Provider Date of admission: 06/21/21 13:32 Discharge Date: 06/25/21 Primary care physician: Jayleen Soto MD Consults: 06/21/21 17:06 Consult to Anesthesiology Routine Comment: Consulting Provider: Anesthesiologist Reason for consultation: Regional block for post operative pain control Has provider been notified: Yes 06/21/21 20:30 Consult to Discharge Planning Routine Comment: Consult to Physical Therapy Evaluate & Treat Comment: Physician Instructions: Evaluate and Treat Consult to Respiratory Therapy Evaluate & Treat Comment: Physician Instructions: Evaluate and treat 06/22/21 10:44 Consult to Orthopedic Surgery Routine Comment: Consulting Provider: Allison Oakley Reason for consultation: consult on surgery Has provider been notified: Yes Discharge provider: Sarai Will DO Summary Hospital Course Discharge Diagnosis: LEFT HIP FRACTURE.? STATUS POST REPAIR ON 06/21.? STABLE. ORTHOPEDIC?ASSISTANCE APPRECIATED REACTIVE LEUKOCYTOSIS.? RESOLVED PHYSICAL DEBILITY/DECONDITIONING. ? PT AND OT AT SNF. FALL PRECAUTIONS CONSTIPATION.? RESOLVED. ON MIRALAX, SENNA, DOCUSATE ANEMIA OF CHRONIC DISEASE IN CONJUNCTION WITH ACUTE BLOOD LOSS SECONDARY TO RECENT SURGERY. HEMOGLOBIN STABLE NO SIGN OF ACUTE BLEEDING HYPERTENSION PER HISTORY.? AWARE HYPONATREMIA.? MILD.? MONITOR ONLY CAD PER HISTORY. HISTORY OF STENT PLACEMENT X3. ETOH ABUSE PER HISTORY. NO SIGNS OF WITHDRAWAL Hospital Course: THIS IS A 76-YEAR-OLD MALE ADMITTED TO THE HOSPITAL AFTER AN ACCIDENTAL FALL. HE WAS TREATED FOR A FRACTURE TO THE LEFT HIP WHICH WAS REPAIRED ON 06/21 HE HAS BEEN IMPROVING CLINICALLY BUT DID HAVE SIGNIFICANT ANEMIA NOTED POSTOPERATIVELY. HE WAS TRANSFUSED 2 UNIT AND HE IS HEMOGLOBIN HAS REMAINED ABOVE 8 PATIENT ALSO IS ON ASPIRIN AND PLAVIX. HE HAS A HISTORY OF CAD WITH STENT PLACEMENT. HE NEEDS TO STAY ON ANTI-PLATELET THERAPY UNTIL OTHERWISE RECOMMENDED BY CARDIOLOGY PER ON EXAMINATION, DOES NOT SHOW ANY SIGN OF ACUTE HEMORRHAGE. THERE ARE ONLY SOME SCANT AMOUNT OF BLOODY SECRETION TO THE LEFT HIP DRESSING. NO BLOODY OR BLACK TARRY STOOL REPORTED. THE RECENT DECREASE IN HEMOGLOBIN COULD BE DILUTIONAL THIS WILL NEED TO BE FURTHER MONITOR OUTPATIENT AND TREATED INDICATED. PATIENT WAS STARTED ON MULTIVITAMIN WITH FOLATE, IRON, AND B12. ANTI-REFLUX THERAPY ALSO ORDER REPEAT SITTING CARAFATE. AVOID THE USE OF NSAIDS. OF NOTE, NO SIGN OF WITHDRAWAL SYMPTOMS SINCE ADMISSION ADDITIONAL MANAGEMENT WILL BE DEFERRED TO OUTPATIENT PROVIDERS. PATIENT TO FOLLOW-UP WITH PRIMARY CARE PHYSICIAN AND ORTHOPEDIC SURGERY WITHIN 1-2 WEEKS ACTIVITIES TOLERATED WITH FALL PRECAUTIONS AND FOLLOW ORTHOPEDIC SURGERY RECOMMENDATION CLOSELY Status at Discharge Cognitive/behavioral status at discharge: oriented Functional status at discharge: uses cane/walker Overall status at discharge: patient is progressing back to baseline Time Spent with Patient Time spent: Greater than 30 minutes Exam Vital Signs (past 8 hours): - 06/25/21 04:57 06/25/21 07:00 06/25/21 08:20 Temperature 97.6 F 98.7 F Pulse Rate 104 H 105 H Respiratory Rate 18 18 Blood Pressure 124/73 106/62 Pulse Oximetry 95 95 95 06/25/21 08:37 Temperature Pulse Rate Respiratory Rate Blood Pressure Pulse Oximetry 95 Oxygen Delivery Method Room Air Oxygen Flow Rate 0 Narrative Exam Narrative: NO ACUTE DISTRESS.? PATIENT IS ALERT ORIENTED X3. VITAL SIGNS STABLE HEAD ATRAUMATIC NORMOCEPHALIC NECK : SUPPLE WITHOUT ADENOPATHY NO CAROTID BRUITS EYE:? EOMI, PERRLA, NORMAL CONJUNCTIVA; NO JAUNDICE CHEST:? REGULAR RATE.? ? NO RUBS.? PMI IS NON DISPLACED.? NO MURMURS; NORMAL S1-S2 PULMONARY:? DECREASED BS OVER THE BASES.? MILD BIBASILAR CRACKLES NOTED; NO INCREASED DULLNESS TO PERCUSSION ABDOMEN:? SOFT.? NONTENDER.? NONDISTENDED.? BOWEL SOUNDS ARE PRESENT IN ALL 4 QUADRANTS.? NO MASS. EXTREMITIES: NO EDEMA..? NO CYANOSIS CLUBBING NOTED. DRESSING TO LEFT HIP. SCANT SEROSANGUINEOUS DRAINAGE APPRECIATED. NO SIGN OF INFECTION NEURO:? CRANIAL NERVES 2-12 GROSSLY INTACT. NO FOCAL NEUROLOGICAL DEFICIT NOTED. MSK:? NO DEFORMITY.? POOR MUSCULATURE PSYCH :? CALM AND COOPERATIVE.? ALERT AWAKE ORIENTED X3 Objective Labs Result Diagrams: 06/25/21 06:10 06/25/21 06:10 Labs: Laboratory Results - last 24 hr 06/24/21 06/25/21 06/25/21 11:37 06:10 06:10 WBC 5.0 RBC 2.42 L Hgb 7.9 L Hct 22.9 L MCV 94.6 MCH 32.5 MCHC 34.3 RDW 22.7 H Plt Count 187 Neut % (Auto) 75.8 H Lymph % (Auto) 10.0 L [place] % (Auto) 10.5 Eos % (Auto) 2.5 Baso % (Auto) 1.2 Neut # (Auto) 3800 Lymph # (Auto) 500 L [place] # (Auto) 500 Eos # (Auto) 100 Baso # (Auto) 100 RBC Morphology Not Reportable Poikilocytosis 1+ H Anisocytosis 1+ H Sodium 135 L Potassium 3.7 Chloride 100 Carbon Dioxide 33 H BUN 15 Creatinine 0.87 Estimated GFR > 60.0 BUN/Creatinine Ratio 17.2 Glucose 119 H Calcium 8.2 L Phosphorus 2.4 Total Bilirubin 0.8 AST 73 H ALT 34 Alkaline Phosphatase 50 Total Protein 5.3 L Albumin 3.1 L Globulin 2.2 Albumin/Globulin Ratio 1.4 SARS-CoV-2 (PCR) Negative [facility] Medical History CAD (coronary artery disease) Claudication of both lower extremities COPD (chronic obstructive pulmonary disease) HTN (hypertension) Hyperlipidemia Surgical History History of heart artery stent Social History household members: none Smoking Status: Former smoker alcohol intake: current Discharge Plan Discharge Plan Patient Disposition: SNF Discharge orders & Medications Prescriptions: New sennosides [senna] 8.6 mg Tablet 17.2 mg PO BEDTIME Qty: 60 0RF cyanocobalamin (vitamin B-12) [Vitamin B-12] 100 mcg Tablet 100 mcg PO DAILY Qty: 60 0RF polyethylene glycol 3350 17 gram Powder In Packet 17 gm PO BID Qty: 60 0RF sucralfate 1 gram Tablet 1 gm PO ACHS Qty: 120 0RF famotidine [Pepcid AC] 20 mg Tablet 40 mg PO BID Qty: 60 0RF ascorbic acid (vitamin C) [Vitamin C] 500 mg Tablet 500 mg PO BID Qty: 60 0RF docusate sodium 100 mg Capsule 100 mg PO BID Qty: 60 0RF folic acid 1 mg Tablet 1 mg PO DAILY Qty: 60 0RF cholecalciferol (vitamin D3) [Vitamin D3] 10 mcg (400 unit) Tablet 800 unit PO DAILY Qty: 60 0RF oxycodone 5 mg Tablet 5 mg PO Q6H PRN (Reason: Pain, Moderate (4-6)) Qty: 10 0RF Prenatabs Rx 29 mg iron- 1 mg Tablet 1 tab PO DAILY Qty: 60 0RF clopidogrel [Plavix] 75 mg tablet 75 mg PO DAILY Qty: 30 0RF Continued aspirin 81 MG tablet,delayed release (DR/EC) 81 mg PO QDAY Qty: 0 0RF lisinopril 10 MG tablet 10 mg PO QDAY Qty: 90 1RF atorvastatin 75 mg PO BEDTIME 0RF Discontinued CA PANTOTHENATE/FOLIC ACID/VIT (MULTIVITAMIN) 1 tab PO QDAY Qty: 0 0RF LOVASTATIN (MEVACOR) 20 mg PO QDAYPM Qty: 0 0RF Pravastatin Sodium (PRAVACHOL) 10 mg PO HS Qty: 90 1RF clopidogrel [Plavix] 75 mg Tablet 75 mg PO DAILY 0RF Follow up/Referrals: Jayleen Soto MD [Primary Care Provider] - Diet/Activity/Treatments Diet: Regular, Low-fat, Low-sodium and Low-cholesterol Liquid consistency: Normal/Thin Food texture: Soft Skin/Wound/Dressing Care Report to your healthcare provider any signs of infection, such as:: chills, fever and night sweats Discharge Data Primary Care Provider: Jayleen Soto VTE Deep Vein Thrombosis/Pulmonary Embolism Present on Admission: No
--- NOTE | 2021-06-25 11:15 | CM.DANOTE ---
DCP/continued: Received notification from provider that patient medically stable for transfer to SNF today. Placed call to Lydia at [facility] and she confirms that they can accept. AMANDA/Jovanna to finalize discharge. Met with patient to confirm plan. Patient reports that he will notify his family of transfer. RN given number to report. Patient scheduled to be picked up today around 1:00pm. No additional needs identified. P: [facility] today. BRENDA Bustillos
--- NOTE | 2021-06-25 12:56 | PC.NURSE ---
A&Ox4. VSS. Pain 12/09, alleviated with scheduled tylenol. Cap refill <2 sec. Shadow drainage on aquacel dressing. Iv patent, removed prior to discharge. Cough and patient complains of mild congestion in the chest, O2 98% room air. lungs clear to auscultation. Discharge packet given to [facility]. Report called. Patient off of unit at 12:55 to [facility].
== END 2021-06-25 12:55 | DRG 481 ==
LOC: ED 13:27 → AC 13:33
PROVIDERS: Hospitalist; Orthopaedic Surgery; Admitting Provider Internal Medicine; Emergency Provider Emergency Medicine; PCP Internal Medicine; Referring Provider Emergency Medicine; Visit Provider Internal Medicine
PROC: 0QS704Z Reposition Left Upper Femur with Internal Fixation Device, Open Approach (ICD-10-PCS; principal; 2021-06-21 16:30)
DX: S72.142A Displaced intertrochanteric fracture of left femur, initial encounter for closed fracture (principal); S22.32XA Fracture of one rib, left side, initial encounter for closed fracture; D62 Acute posthemorrhagic anemia; E87.1 Hypo-osmolality and hyponatremia; F10.10 Alcohol abuse, uncomplicated; Y90.6 Blood alcohol level of 120-199 mg/100 ml; I10 Essential (primary) hypertension; K59.00 Constipation, unspecified; E78.5 Hyperlipidemia, unspecified; I25.10 Atherosclerotic heart disease of native coronary artery without angina pectoris; W18.30XA Fall on same level, unspecified, initial encounter; Z95.5 Presence of coronary angioplasty implant and graft; Z91.81 History of falling; Z87.891 Personal history of nicotine dependence; Z20.822 Contact with and (suspected) exposure to COVID-19; Z66 Do not resuscitate
CPT/HCPCS: 36415; 36430; 70450; 71045; 73502; 74018; 76000; 80048; 80053; 80320; 81001; 81003; 81015; 82550; 83690; 84100; 84484; 85007; 85025; 85027; 86850; 86900; 86901; 87634; 87635; 93005; 94760; 94762; 96361; 96374; 97110; 97116; 97161; 97530; 99284; C9803; P9016; A9270; C9113; C9290; J0171; J0690; J1100; J1170; J2060; J2270; J2405; J2704

== ENCOUNTER → 2021-12-05 12:15 | Outpatient (CLI) | payer MEDICARE, OTHER, SELFPAY ==
[2021-06-21 15:15] VITALS: BMI 20.6
--- NOTE | 2021-12-05 | DI.ECHO.S_ITS ---
[facility] +---------+ Hospital +---------+ : : [address] : : : : [id number] : : : : Phone: [phone]+ Echocardiogram Report + + :Name: KATLIN HENDRICKSON Study Date: 12/05/2021 Height: 71 in : :[facility] ReadingLocation: Weight: 140 lb : : Gender: Male BSA: 1.8 m2 : :: 1945 Age: 76 yrs BP: 149/84 mmHg: :Reason For Study: Cardiomyopathy : :Ordering Physician: INOCENCIA, : :CRISTIANO Performed By: Greg Holloway : :Referring: CRISTIANO PRO : + + Interpretation Summary The left ventricle is normal in size and wall thickness. The ejection fraction is estimated to be 50-55%. There has been no significant change in LVEF since the previous exam. There is hypokinesis of the basal to mid inferolateral wall, basal to mid inferior wall extending into the basal anterolateral wall as well. No significant change from the previous study. The right ventricle is normal in size and function. No significant valvular pathology seen. The IVC is of normal diameter and collapses greater than 50% with a sniff. This suggests a low right atrial pressure of 3 mm Hg. Severe atherosclerotic plaque(s) in the aortic arch. Procedure: A two-dimensional transthoracic echocardiogram with color flow and Doppler was performed. The study quality was technically adequate. Comparison is made with the echocardiogram of 06/29/2020. The patient was in normal sinus rhythm during the exam. Left Ventricle: The left ventricle is normal in size and wall thickness. There is no thrombus. The ejection fraction is estimated to be 50-55%. There has been no significant change since the previous exam. There is hypokinesis of the basal to mid inferolateral wall, basal to mid inferior wall extending into the basal anterolateral wall. as well. No significant change from the previous study. Diastolic parameters suggest a relaxation abnormality of the left ventricle, consistent with probable normal filling pressures. Right Ventricle: The right ventricle is normal in size and function. Atria: Both atria are normal in size. Both atria have remained unchanged in size since the prior echo exam. The interatrial septum grossly appears intact with no obvious evidence for an atrial septal defect. Mitral Valve: There is mild mitral annular calcification. There is trace mitral regurgitation. Aortic Valve: There is mild aortic valve sclerosis. The aortic valve is trileaflet. There is no aortic valve stenosis. No aortic regurgitation is present. Tricuspid Valve: The tricuspid valve is normal in structure and function. Pulmonary artery pressures cannot be estimated because of the lack of a measurable TR jet velocity. There is trace tricuspid regurgitation. Pulmonic Valve: The pulmonic valve is not well visualized. Great Vessels: The aortic root is normal size. The dimensions of the ascending aorta are normal. Severe atherosclerotic plaque(s) in the aortic arch. The IVC is of normal diameter and collapses greater than 50% with a sniff. This suggests a low right atrial pressure of 3 mm Hg. Pericardium/ Pleura There is no pericardial effusion. There is no pleural effusion. MMode/2D Measurements & Calculations LVIDd: 4.5 cm LVOT diam: 2.0 cm LVIDs: 2.8 cm Ao root diam: 2.7 cm FS: 37.8 % asc Aorta Diam: 2.9 cm IVSd: 0.80 cm LVPWd: 0.90 cm LV hancock. diameter/BSA (cm/m^2): 2.5 LV sys. diameter/BSA (cm/m^2): 1.5 LA dimension: 2.9 cm RA long axis: 4.3 cm LA A2 area: 17.2 cm2 LA A4 area: 16.5 cm2 LA length (vol): 5.1 cm LA vol: 47.5 ml LA vol index: 26.2 ml/m2 TAPSE_phl: 2.4 cm Doppler Measurements & Calculations Ao V2 max: 159.0 cm/sec LVOT Max Gianni: 106.0 cm/sec Ao V2 mean: 112.0 cm/sec LV V1 max P.5 mmHg Ao max P.0 mmHg LV V1 VTI: 20.7 cm Ao mean P.0 mmHg FLORA(I,D): 1.9 cm2 Ao V2 VTI: 34.1 cm FLORA(V,D): 2.1 cm2 sev ratio: 0.61 FLORA indexed to BSA (cm^2/m^2): 1.1 MV E max gianni: 83.6 cm/sec SV(LVOT): 65.0 ml MV A max gianni: 88.7 cm/sec MV E/A: 0.94 Med Peak E' Gianni: 7.8 cm/sec E/E' med: 10.7 Lat Peak E' Gianni: 10.0 cm/sec E/E' lat: 8.4 E/e' average: 9.5 MV dec time: 0.19 sec AV VR_phl: 0.67 MV P1/2t-pr_phl: 55.0 msec FLORA(VTI)/BSA_phl: 1.1 Reading Physician:06:03 PM
== END ==
PROVIDERS: PCP Internal Medicine; Referring Provider Internal Medicine Cardiovascular Disease; Visit Provider Internal Medicine Cardiovascular Disease
DX: E83.118 Other hemochromatosis (principal); I35.8 Other nonrheumatic aortic valve disorders; I70.0 Atherosclerosis of aorta
CPT/HCPCS: 93306

== ENCOUNTER → 2022-04-22 10:13 | Outpatient (CLI) | payer MEDICARE, OTHER, SELFPAY ==
[2021-06-21 15:15] VITALS: BMI 20.6
--- NOTE | 2022-04-22 | DI.MRI.S_ITS ---
PROCEDURE: MR LUMBAR SPINE WO CON INDICATIONS: Spinal stenosis, lumbar region with neurogenic claudication TECHNIQUE: Noncontrast sagittal T1 spin echo and T2 fast echo, sagittal STIR, and T2 fast spin echo through the lumbar spine. In cases with scoliosis, additional coronal T2 fast spin echo may be performed. COMPARISON: [facility] Outside Film, CT, CT LUMBAR SPINE WITHOUT CONTRAST, 01/31/2022, 13:03. FINDINGS: Image quality: Excellent. Alignment and Curvature: There is normal bony alignment. Bones and Discs.: Loss of height noted in the L1 vertebral body compatible with compression fracture. Loss of height involving the L1 vertebral body is increased compared to CT scan obtained January 31, 2022. Increased T2 signal noted in the marrow space of the L1 vertebral body indicating compression fractures acute/subacute. L1 compression fracture results in approximately 70% loss of anterior vertebral body height and 90% loss of central vertebral body height. Retropulsed bone fragment associated with the L1 compression fracture causes moderate to severe narrowing of the central canal with slight compression of the distal thoracic spinal cord. No kyphosis associated with the L1 compression fracture. Chronic appearing L3 compression fracture is stable compared to the prior examination. No acute vertebral body compression fractures. Mild degenerative disc changes noted throughout the lumbar spine. Mild L3-L4, L4-L5 and L5-S1 facet hypertrophy. No severe neural foraminal narrowing. Increased T2 signal noted in the right ala of the sacrum concerning for insufficiency fracture. Spinal Cord: Conus medullaris terminates at the L2 level. Visualized cord demonstrates normal signal and size. Paraspinous Soft Tissues: No paravertebral masses. IMPRESSION: 1. Loss of height associated with the L1 compression fracture has increased compared to January 31, 2022 compatible with acute/subacute progression of the compression fracture. 2. Moderate to severe central canal narrowing related to retropulsed bone fragment associated with the L1 compression fracture with slight compression of the distal spinal cord. 3. Multilevel degenerative disc disease. 4. No severe neural foraminal narrowing. 5. Right sacral insufficiency fracture. Dictated by: Katerina Burch MD, PhD on 04/22/2022 at 13:28 Approved by: Katerina Burch MD, PhD on 04/22/2022 at 13:38
== END ==
PROVIDERS: PCP Internal Medicine; Referring Provider Physical Medicine & Rehabilitation; Visit Provider Physical Medicine & Rehabilitation
DX: M48.56XA Collapsed vertebra, not elsewhere classified, lumbar region, initial encounter for fracture (principal); M48.58XA Collapsed vertebra, not elsewhere classified, sacral and sacrococcygeal region, initial encounter for fracture; M48.062 Spinal stenosis, lumbar region with neurogenic claudication; M51.36 Other intervertebral disc degeneration, lumbar region
CPT/HCPCS: 72148

== ENCOUNTER 2022-08-07 14:57 | Inpatient (IN) | payer MEDICARE, OTHER, SELFPAY ==
[2021-06-21 15:15] VITALS: BMI 20.6
[2022-08-07] VITALS (22 sets, daily range): BP systolic 116–190; BP diastolic 73–103; PULSE 107–141; RESP 18–39; TEMP 37.3–37.5; O2SAT 87–99; BMI 18.4
--- NOTE | 2022-08-07 15:12 | DI.RAD.S_ITS ---
PROCEDURE: XR HIP W PEL IF DONE RT 2V INDICATIONS: fall TECHNIQUE: AP pelvis with lateral view(s) of the left hip(s). COMPARISON: [facility], CR, XR HIP W PEL IF DONE LT 2V, 06/21/2021, 18:23. FINDINGS: Bones: No fractures or dislocations. Pelvic ring appears intact. No suspicious bony lesions. ORIF of the left hip. Soft tissues: The visualized bowel gas pattern is normal. No suspicious soft tissue calcifications. IMPRESSION: No acute fracture. No osseous lesion. If symptoms and/or clinical suspicion for pathology persist, further assessment with repeat, or advanced imaging (e.g., CT, MRI, or bone scan) may be helpful for further assessment. Dictated by: Noe Albert M.D. on 08/07/2022 at 15:37 Approved by: Noe Albert M.D. on 08/07/2022 at 15:37
--- NOTE | 2022-08-07 15:12 | DI.CT.S_ITS ---
PROCEDURE: CT HEAD/BRAIN WO CON INDICATIONS: fall TECHNIQUE: Noncontrast 4.5 mm thick angled axial sections acquired from the foramen magnum to the vertex, with coronal and sagittal reformats. For radiation dose reduction, the following was used: automated exposure control, adjustment of mA and/or kV according to patient size. COMPARISON: [facility], CT, CT HEAD/BRAIN WO CON, 06/21/2021, 15:01. FINDINGS: Image quality: Excellent. CSF spaces: Basal cisterns are patent. No extra-axial fluid collections. The ventricles are symmetric in size and shape. Brain: No intracranial bleeds or masses. There is cerebral volume loss for age, with resultant ventricular and sulcal prominence. There are periventricular and deep white matter chronic small vessel ischemic changes. There is intracranial internal carotid artery atherosclerosis. Skull and face: Calvarium and visualized facial bones appear intact, without suspicious lesions. Sinuses: Visualized sinuses and mastoids are clear. IMPRESSION: 1. Volume loss and small vessel ischemic disease. 2. No acute process. Dictated by: Noe Albert M.D. on 08/07/2022 at 15:31 Approved by: Noe Albert M.D. on 08/07/2022 at 15:32
--- NOTE | 2022-08-07 15:12 | DI.RAD.S_ITS ---
PROCEDURE: XR CLAVICLE RT INDICATIONS: fall TECHNIQUE: 2 views of the clavicle were acquired. COMPARISON: None. FINDINGS: Bones: Moderately displaced comminuted fracture of the distal clavicle. Soft tissues: No suspicious soft tissue calcifications. IMPRESSION: Distal clavicular fracture. Dictated by: Noe Albert M.D. on 08/07/2022 at 15:36 Approved by: Noe Albert M.D. on 08/07/2022 at 15:36
--- NOTE | 2022-08-07 15:12 | DI.RAD.S_ITS ---
PROCEDURE: XR CHEST 1V INDICATIONS: fall TECHNIQUE: One view of the chest was acquired. COMPARISON: [facility], CR, XR CHEST 1V, 06/21/2021, 11:04. FINDINGS: Surgical changes and devices: None. Lungs and pleura: Lungs are clear. No pleural effusions or pneumothorax. Mediastinum: Mediastinal contours appear normal. Heart size is normal. Bones and chest wall: No suspicious bony lesions. Overlying soft tissues appear unremarkable. IMPRESSION: No acute process. Dictated by: Noe Albert M.D. on 08/07/2022 at 15:36 Approved by: Noe Albert M.D. on 08/07/2022 at 15:36
--- NOTE | 2022-08-07 15:12 | DI.CT.S_ITS ---
PROCEDURE: CT CERVICAL SPINE WO CON INDICATIONS: fall TECHNIQUE: Noncontrast 3 mm thick sections acquired from the skull base to the T4 level. Sagittal and coronal reformats were then constructed. For radiation dose reduction, the following was used: automated exposure control, adjustment of mA and/or kV according to patient size. COMPARISON: None. FINDINGS: Image quality: Excellent. Bones: There is mild subacute appearing wedging of T3 and T4. No definite acute fracture. Multilevel degenerative disc and facet disease. Visualized superior ribs are intact. Soft tissues: Prevertebral soft tissues are normal in thickness. No paravertebral hematomas. No apical pneumothoraces. IMPRESSION: 1. No evidence of acute fracture. 2. Mild subacute appearing fractures of T3 and T4. This could be further assessed with nonemergent outpatient follow-up thoracic spine MRI, if clinically indicated. Dictated by: Noe Albert M.D. on 08/07/2022 at 15:37 Approved by: Noe Albert M.D. on 08/07/2022 at 15:40
[2022-08-07] MEDS: SODIUM CHLORIDE 0.9% 1,000 ML 125 ML IV ×2 (15:39→22:57)
[2022-08-07] MEDS: MORPHINE 2 MG/ML INJ IV (15:39)
--- NOTE | 2022-08-07 15:48 | DI.CT.S_ITS ---
PROCEDURE: CT PEL WO CON INDICATIONS: pain right TECHNIQUE: Noncontrast 3 mm axial sections acquired through the bony pelvis, with coronal and sagittal reformatting. COMPARISON: [facility], CR, XR HIP W PEL IF DONE RT 2V, 08/07/2022, 15:16. FINDINGS: Image quality: Excellent. Bones: Chronic sclerosis within the right posterior iliac wing. Mildly displaced fracture of the right pubic root, superior pubic ramus, and inferior pubic ramus. ORIF of the left hip. Mild chronic appearing lower lumbar compression fractures. Soft tissues: Visualized bowel loops within normal limits. No regional adenopathy. Infrarenal abdominal aortic aneurysm measuring 43 mm. IMPRESSION: 1. Minimally displaced right obturator ring fracture, not seen by plain film. 2. Infrarenal abdominal aortic aneurysm. Dictated by: Noe Albert M.D. on 08/07/2022 at 16:21 Approved by: Noe Albert M.D. on 08/07/2022 at 16:23
[2022-08-07] MEDS: ONDANSETRON 4 MG/2 ML INJ IV (15:54)
[2022-08-07 16:17] LABS: Add Manual Diff / Slide Review NO; Basophils Absolute Auto 0 /uL (0-100); Basophils Percent Auto 0.4 % (0-2); Eosinophils Absolute Auto 0 /uL (0-450); Hematocrit 26.2 % (41-53); Hemoglobin 8.9 g/dL (13.5-17.5); Lymphocytes Absolute Auto 600 /uL (1100-4500); Lymphocytes Percent Auto 5.5 % (25-40); Mean Corpuscular HGB Conc 33.8 % (30-36); Mean Corpuscular Hemoglobin 33.1 PG (26-34); Monocytes Absolute Auto 1000 /uL (0-900); Monocytes Percent Auto 10.1 % (3-14); Neutrophils Absolute Auto 8500 /uL (1500-7000); Platelet Count 239 X10^3/uL (150-400); Red Blood Cell Count 2.67 X10^6/uL (4.5-5.9); Red Cell Distribution Width 19.3 % (11.6-14.8); White Blood Cell Count 10.2 X10^3/uL (4.5-11.0)
--- NOTE | 2022-08-07 16:18 | ED_ITS ---
HPI - Syncope <uSha Randolph, DO - Last Filed: 08/08/22 07:45> General Chief Complaint: Syncope Stated Complaint: GLF Time Seen by Provider: 08/07/22 15:09 Source: EMS Mode of arrival: EMS History of Present Illness HPI narrative: Patient is a 77-year-old male history of hypertension hyperlipidemia frequent falls presenting today as found down with right hip pain and right shoulder pain. He has no recollection of the events but was found down on his floor. He last talked to a physical therapist on the phone yesterday she came in to see him today and found him lying on the floor unable to get. He reports that he has a known right clavicle fracture but he is unable to tell me how long it has been there he has some bruising on that side he is not sure of it happened during this fall. However he is unable to get up or bear weight due to severe right hip pain. He denies any chest pain or palpitations. He is not on any antiplatelet or anticoagulation medication. He reports he was previously on aspirin but he stopped it due to severe nosebleeds. He denies any fever or chills. No painful or frequent urination. No abdominal pain no chest pain no dizziness. He is overall extremely poor historian. Related Data Home Medications Medication Instructions Recorded Confirmed aspirin 81 mg tablet,delayed 81 mg PO QDAY ##0 06/23/12 06/21/21 release atorvastatin 75 mg PO BEDTIME 06/21/21 06/21/21 Previous Rx's Medication Instructions Recorded lisinopril 10 mg tablet 10 mg PO QDAY ##90 12/13/12 ascorbic acid (vitamin C) 500 mg 500 mg PO BID #60 tabs 06/25/21 tablet (Vitamin C) cholecalciferol (vitamin D3) 10 800 unit PO DAILY #60 tabs 06/25/21 mcg (400 unit) tablet (Vitamin D3) clopidogrel 75 mg tablet (Plavix) 75 mg PO DAILY #30 tabs 06/25/21 cyanocobalamin (vitamin B-12) 100 100 mcg PO DAILY #60 tabs 06/25/21 mcg tablet (Vitamin B-12) docusate sodium 100 mg capsule 100 mg PO BID #60 caps 06/25/21 famotidine 20 mg tablet (Pepcid AC) 40 mg PO BID #60 tabs 06/25/21 folic acid 1 mg tablet 1 mg PO DAILY #60 tabs 06/25/21 oxycodone 5 mg tablet 5 mg PO Q6H PRN Pain, Moderate 06/25/21 (4-6) #10 tabs polyethylene glycol 3350 17 gram 17 gm PO BID #60 ea 06/25/21 oral powder packet vitamin 1 tab PO DAILY #60 tabs 06/25/21 no.76-iron,carbonyl 29 mg iron-folic acid 1 mg tablet (Prenatabs Rx) sennosides 8.6 mg tablet (senna) 17.2 mg PO BEDTIME #60 tabs 06/25/21 sucralfate 1 gram tablet 1 gm PO ACHS #120 tabs 06/25/21 Allergies Allergy/AdvReac Type Severity Reaction Status Date / Time No Known Drug Allergies Allergy Verified 08/07/22 15:12 Review of Systems <Suha Randolph DO - Last Filed: 08/08/22 07:45> Review of Systems ROS Unobtainable: All systems reviewed & are unremarkable except as noted in HPI and below Patient History <Suha Randolph DO - Last Filed: 08/08/22 07:45> Medical History CAD (coronary artery disease) Claudication of both lower extremities COPD (chronic obstructive pulmonary disease) HTN (hypertension) Hyperlipidemia Surgical History History of heart artery stent Social History household members: none Smoking Status: Current every day smoker alcohol intake: current Smoking Status: Former smoker alcohol intake frequency: 0-2 drinks per day Substance Use Type: does not use Exam <Suha Randolph DO - Last Filed: 08/08/22 07:45> Initial Vital Signs Initial Vital Signs: Vital Signs Pulse Rate 141 H 08/07/22 15:02 Respiratory Rate 28 H 08/07/22 15:02 GENERAL: Alert thin chronically ill 77-year-old male HEENT: Head atraumatic,EOMI, pupils reactive, face symmetric, [moist] mucous membranes NECK: No step-off CARDIOVASCULAR: Regular rate and rhythm without murmurs, rubs or gallops. RESPIRATORY: Breath sounds equal bilaterally, no wheezes rales or rhonchi. ABDOMEN: Soft, nontender. Normoactive bowel sounds all 4 quadrants. No guarding or rebound. EXTREMITIES: Normal range of motion, no clubbing or edema. Neurovascularly intact. Right clavicle and shoulder contusion tender distal clavicle Extreme pain on iliac crest of right side. Distal pedal pulse is very faint, but dopplerable bilaterally NEUROLOGICAL: Alert and oriented x4.Normal gait and speech. Cranial nerves II through XII grossly intact. SKIN: Contusion noted right shoulder but no other rashes or sign of trauma or injury no lacerations. <Wendy Mendez, DO - Last Filed: 08/08/22 03:06> Initial Vital Signs Initial Vital Signs: Vital Signs Pulse Rate 141 H 08/07/22 15:02 Respiratory Rate 28 H 08/07/22 15:02 Course <Suha Randolph DO - Last Filed: 08/08/22 07:45> Orders Ordered: Acetaminophen (Acetaminophen 325 Mg Tablet) 650 mg PO Q6H PRN PRN Reason: Fever/Mild Pain (1-3) Chlordiazepoxide HCl (Chlordiazepoxide 25 Mg Capsule) 25 mg PO TID LEE Last Admin: 08/07/22 23:38 Dose: 25 mg Documented By: LA Folic Acid (Folic Acid 1 Mg Tablet) 1 mg PO DAILY [facility] Hydromorphone HCl (Hydromorphone 0.5 Mg Inj) 0.5 mg IV Q3H PRN PRN Reason: Pain, Severe (7-10) Last Admin: 08/08/22 07:32 Dose: 0.5 mg Documented By: Admin: 08/08/22 03:47 Dose: 0.5 mg Documented By: Admin: 08/07/22 22:57 Dose: 0.5 mg Documented By: LA Hydromorphone HCl (Hydromorphone 1 Mg Inj) 1 mg IV Q3H PRN PRN Reason: Breakthrough Pain Last Admin: 08/08/22 05:58 Dose: 1 mg Documented By: Admin: 08/08/22 01:48 Dose: 1 mg Documented By: LA Hydroxyzine Pamoate (Hydroxyzine Pamoate 25 Mg Capsule) 25 mg PO Q8HR PRN PRN Reason: Nausea Last Admin: 08/08/22 02:50 Dose: 25 mg Documented By: LA Sodium Chloride (Normal Saline 0.9%) 1,000 mls @ 125 mls/hr IV CONT LEE Last Admin: 08/07/22 22:57 Dose: 125 mls/hr Documented By: Infusion: 08/07/22 22:57 Dose: 0 mls/hr Documented By: Infusion: 08/07/22 22:30 Dose: 0 mls/hr Documented By: Infusion: 08/07/22 17:20 Dose: 125 mls/hr Documented By: Infusion: 08/07/22 16:06 Dose: 0 mls/hr Documented By: Admin: 08/07/22 15:39 Dose: 125 mls/hr Documented By: AT Magnesium Sulfate (Magnesium Sulfate) 4 gm in 100 mls @ 25 mls/hr IV NOW ONE Stop: 08/08/22 11:21 Lisinopril (Lisinopril 10 Mg Tablet) 10 mg PO DAILY LEE Lorazepam (Lorazepam 2 Mg/Ml Inj) 0 mg IV CIWAPRN PRN; Protocol PRN Reason: Alcohol Withdrawal Last Admin: 08/08/22 07:31 Dose: 2 mg Documented By: JOHN Multivitamins (Multivitamin 1 Tablet) 1 tab PO DAILY [facility] Naloxone HCl (Naloxone 0.4 Mg/Ml Vial) 0.2 mg IV Q2MIN PRN PRN Reason: Opiate Reversal Ondansetron HCl (Ondansetron 4 Mg/2 Ml Inj) 4 mg IV Q6HR PRN PRN Reason: Nausea And Vomiting Oxycodone HCl (Oxycodone Ir 5 Mg Tablet) 5 mg PO Q3H PRN PRN Reason: Pain, Moderate (4-6) Last Admin: 08/08/22 02:50 Dose: 5 mg Documented By: LA Oxycodone HCl (Oxycodone Ir 10 Mg Tablet) 10 mg PO Q3HR PRN PRN Reason: Pain, Severe (7-10) Last Admin: 08/08/22 07:32 Dose: 10 mg Documented By: JOHN Polyethylene Glycol (Polyethylene Glycol 3350 17 Gm Powd.Pack) 17 gm PO BID LEE Sennosides (Sennosides 8.6 Mg Tablet) 17.2 mg PO BEDTIME LEE Last Admin: 08/07/22 23:38 Dose: 17.2 mg Documented By: LA Sucralfate (Sucralfate 1 Gm Tablet) 1 gm PO ACHS [facility] Last Admin: 08/08/22 07:32 Dose: 1 gm Documented By: JOHN Thiamine HCl (Thiamine 100 Mg Tablet) 100 mg PO DAILY [facility] Stop: 08/11/22 09:01 Discontinued Medications Hydromorphone HCl (Hydromorphone 0.5 Mg Inj) 0.5 mg IV NOW ONE Stop: 08/07/22 17:59 Last Admin: 08/07/22 18:22 Dose: 0.5 mg Documented By: AT Hydromorphone HCl (Hydromorphone 0.5 Mg Inj) 0.5 mg IV Q3HR PRN PRN Reason: pain Last Admin: 08/07/22 21:51 Dose: 0.5 mg Documented By: AT Magnesium Sulfate (Magnesium Sulfate) 2 gm in 50 mls @ 25 mls/hr IV NOW ONE Stop: 08/08/22 06:53 Last Admin: 08/08/22 05:00 Dose: 25 mls/hr Documented By: LA Co-signed By: ANA Morphine Sulfate (Morphine 2 Mg/Ml Inj) 2 mg IV NOW ONE Stop: 08/07/22 15:14 Last Admin: 08/07/22 15:39 Dose: 2 mg Documented By: AT Ondansetron HCl (Ondansetron 4 Mg/2 Ml Inj) 4 mg IV NOW ONE Stop: 08/07/22 15:53 Last Admin: 08/07/22 15:54 Dose: 4 mg Documented By: AT Vital Signs Vital signs: Vital Signs - 8 hr 08/07/22 19:30 08/07/22 19:30 08/07/22 20:00 Pulse Rate 109 H 115 H Respiratory Rate 26 H 39 H Blood Pressure 128/74 Pulse Oximetry 97 94 Oxygen Delivery Method Nasal Cannula Room Air Oxygen Flow Rate 2 08/07/22 20:02 08/07/22 20:02 08/07/22 20:30 Pulse Rate 115 H Respiratory Rate 26 H Blood Pressure 125/98 H 139/84 Pulse Oximetry 98 Oxygen Delivery Method Room Air Oxygen Flow Rate 08/07/22 20:30 08/07/22 21:00 08/07/22 21:00 Pulse Rate 109 H 110 H Respiratory Rate 27 H 20 Blood Pressure 154/84 H Pulse Oximetry 96 97 Oxygen Delivery Method Nasal Cannula Nasal Cannula Oxygen Flow Rate 2 2 08/07/22 21:30 08/07/22 22:00 08/07/22 22:00 Pulse Rate 109 H 107 H Respiratory Rate 20 Blood Pressure 125/97 H Pulse Oximetry 93 Oxygen Delivery Method Nasal Cannula Oxygen Flow Rate 2 <Wendy Mendez DO - Last Filed: 08/08/22 03:06> Orders Ordered: Acetaminophen (Acetaminophen 325 Mg Tablet) 650 mg PO Q6H PRN PRN Reason: Fever/Mild Pain (1-3) Chlordiazepoxide HCl (Chlordiazepoxide 25 Mg Capsule) 25 mg PO TID [facility] Last Admin: 08/07/22 23:38 Dose: 25 mg Documented By: LA Folic Acid (Folic Acid 1 Mg Tablet) 1 mg PO DAILY [facility] Hydromorphone HCl (Hydromorphone 0.5 Mg Inj) 0.5 mg IV Q3H PRN PRN Reason: Pain, Severe (7-10) Last Admin: 08/08/22 07:32 Dose: 0.5 mg Documented By: Admin: 08/08/22 03:47 Dose: 0.5 mg Documented By: Admin: 08/07/22 22:57 Dose: 0.5 mg Documented By: LA Hydromorphone HCl (Hydromorphone 1 Mg Inj) 1 mg IV Q3H PRN PRN Reason: Breakthrough Pain Last Admin: 08/08/22 05:58 Dose: 1 mg Documented By: Admin: 08/08/22 01:48 Dose: 1 mg Documented By: LA Hydroxyzine Pamoate (Hydroxyzine Pamoate 25 Mg Capsule) 25 mg PO Q8HR PRN PRN Reason: Nausea Last Admin: 08/08/22 02:50 Dose: 25 mg Documented By: LA Sodium Chloride (Normal Saline 0.9%) 1,000 mls @ 125 mls/hr IV CONT LEE Last Admin: 08/07/22 22:57 Dose: 125 mls/hr Documented By: Infusion: 08/07/22 22:57 Dose: 0 mls/hr Documented By: Infusion: 08/07/22 22:30 Dose: 0 mls/hr Documented By: Infusion: 08/07/22 17:20 Dose: 125 mls/hr Documented By: Infusion: 08/07/22 16:06 Dose: 0 mls/hr Documented By: Admin: 08/07/22 15:39 Dose: 125 mls/hr Documented By: CONNER Magnesium Sulfate (Magnesium Sulfate) 4 gm in 100 mls @ 25 mls/hr IV NOW ONE Stop: 08/08/22 11:21 Lisinopril (Lisinopril 10 Mg Tablet) 10 mg PO DAILY [facility] Lorazepam (Lorazepam 2 Mg/Ml Inj) 0 mg IV CIWAPRN PRN; Protocol PRN Reason: Alcohol Withdrawal Last Admin: 08/08/22 07:31 Dose: 2 mg Documented By: JOHN Multivitamins (Multivitamin 1 Tablet) 1 tab PO DAILY [facility] Naloxone HCl (Naloxone 0.4 Mg/Ml Vial) 0.2 mg IV Q2MIN PRN PRN Reason: Opiate Reversal Ondansetron HCl (Ondansetron 4 Mg/2 Ml Inj) 4 mg IV Q6HR PRN PRN Reason: Nausea And Vomiting Oxycodone HCl (Oxycodone Ir 5 Mg Tablet) 5 mg PO Q3H PRN PRN Reason: Pain, Moderate (4-6) Last Admin: 08/08/22 02:50 Dose: 5 mg Documented By: LA Oxycodone HCl (Oxycodone Ir 10 Mg Tablet) 10 mg PO Q3HR PRN PRN Reason: Pain, Severe (7-10) Last Admin: 08/08/22 07:32 Dose: 10 mg Documented By: JOHN Polyethylene Glycol (Polyethylene Glycol 3350 17 Gm Powd.Pack) 17 gm PO BID [facility] Sennosides (Sennosides 8.6 Mg Tablet) 17.2 mg PO BEDTIME [facility] Last Admin: 08/07/22 23:38 Dose: 17.2 mg Documented By: LA Sucralfate (Sucralfate 1 Gm Tablet) 1 gm PO ACHS [facility] Last Admin: 08/08/22 07:32 Dose: 1 gm Documented By: JOHN Thiamine HCl (Thiamine 100 Mg Tablet) 100 mg PO DAILY [facility] Stop: 08/11/22 09:01 Discontinued Medications Hydromorphone HCl (Hydromorphone 0.5 Mg Inj) 0.5 mg IV NOW ONE Stop: 08/07/22 17:59 Last Admin: 08/07/22 18:22 Dose: 0.5 mg Documented By: CONNER Hydromorphone HCl (Hydromorphone 0.5 Mg Inj) 0.5 mg IV Q3HR PRN PRN Reason: pain Last Admin: 08/07/22 21:51 Dose: 0.5 mg Documented By: AT Magnesium Sulfate (Magnesium Sulfate) 2 gm in 50 mls @ 25 mls/hr IV NOW ONE Stop: 08/08/22 06:53 Last Admin: 08/08/22 05:00 Dose: 25 mls/hr Documented By: LA Co-signed By: ANA Morphine Sulfate (Morphine 2 Mg/Ml Inj) 2 mg IV NOW ONE Stop: 08/07/22 15:14 Last Admin: 08/07/22 15:39 Dose: 2 mg Documented By: AT Ondansetron HCl (Ondansetron 4 Mg/2 Ml Inj) 4 mg IV NOW ONE Stop: 08/07/22 15:53 Last Admin: 08/07/22 15:54 Dose: 4 mg Documented By: AT Vital Signs Vital signs: Vital Signs - 8 hr 08/07/22 19:30 08/07/22 19:30 08/07/22 20:00 Pulse Rate 109 H 115 H Respiratory Rate 26 H 39 H Blood Pressure 128/74 Pulse Oximetry 97 94 Oxygen Delivery Method Nasal Cannula Room Air Oxygen Flow Rate 2 08/07/22 20:02 08/07/22 20:02 08/07/22 20:30 Pulse Rate 115 H Respiratory Rate 26 H Blood Pressure 125/98 H 139/84 Pulse Oximetry 98 Oxygen Delivery Method Room Air Oxygen Flow Rate 08/07/22 20:30 08/07/22 21:00 08/07/22 21:00 Pulse Rate 109 H 110 H Respiratory Rate 27 H 20 Blood Pressure 154/84 H Pulse Oximetry 96 97 Oxygen Delivery Method Nasal Cannula Nasal Cannula Oxygen Flow Rate 2 2 08/07/22 21:30 08/07/22 22:00 08/07/22 22:00 Pulse Rate 109 H 107 H Respiratory Rate 20 Blood Pressure 125/97 H Pulse Oximetry 93 Oxygen Delivery Method Nasal Cannula Oxygen Flow Rate 2 MDM - Syncope <Suha Randolph DO - Last Filed: 08/08/22 07:45> Lab Data 08/07/22 15:45 08/07/22 15:45 Labs: Lab Results 08/07/22 08/07/22 08/07/22 Range/Units 15:45 15:45 15:45 WBC 10.2 (4.5-11.0) X10^3/uL RBC 2.67 L (4.5-5.9) X10^6/uL Hgb 8.9 L (13.5-17.5) g/dL Hct 26.2 L (41-53) % MCV 98.0 (80-100) fL MCH 33.1 (26-34) PG MCHC 33.8 (30-36) % RDW 19.3 H (11.6-14.8) % Plt Count 239 (150-400) X10^3/uL Neut % (Auto) 84.0 H (50-75) % Lymph % (Auto) 5.5 L (25-40) % [place] % (Auto) 10.1 (3-14) % Eos % (Auto) 0.0 L (2-4) % Baso % (Auto) 0.4 (0-2) % Neut # (Auto) 8500 H (5813-0758) /uL Lymph # (Auto) 600 L (0243-4586) /uL [place] # (Auto) 1000 H (0-900) /uL Eos # (Auto) 0 (0-450) /uL Baso # (Auto) 0 (0-100) /uL Sodium 143 (137-145) mmol/L Potassium 4.0 (3.4-5.1) mmol/L Chloride 101 (98-107) mmol/L Carbon Dioxide 29 (22-32) mmol/L BUN 24 H (9-20) mg/dL Creatinine 0.73 (0.66-1.25) mg/dL Estimated GFR > 60 (>60) mL/min BUN/Creatinine Ratio 32.9 H (6-22) Glucose 115 H (80-110) mg/dL Lactate 1.4 (0.7-2.1) mmol/L Calcium 8.8 (8.4-10.2) mg/dL Total Bilirubin 1.4 H (0.2-1.3) mg/dL AST 81 H (17-59) IU/L ALT 62 H (<50) IU/L Alkaline Phosphatase 130 H (38-126) U/L Total Creatine Kinase 68 (55-170) U/L CK-MB (CK-2) TNP CK-MB (CK-2) Rel Index TNP Troponin I < 0.012 (0.01-0.034) ng/mL Total Protein 5.8 L (6.3-8.2) g/dL Albumin 3.6 (3.5-5.0) g/dL Globulin 2.2 (1.7-4.1) g/dL Albumin/Globulin Ratio 1.6 (1.0-2.8) Procalcitonin (<0.5) ng/mL Urine Color Urine Appearance Urine pH (4.5-8.0) Ur Specific [place] (1.000-1.035) Urine Protein (Negative) Urine Glucose (UA) (Negative) g/dL Urine Ketones (NEGATIVE) Urine Occult Blood (Negative) Urine Nitrate (Negative) Urine Bilirubin (NEGATIVE) Ur Bilirubin Confirm (Negative) Urine Urobilinogen (0.2) E.U./dL Ur Leukocyte Esterase (NEGATIVE) Urine RBC (0-5/HPF) Urine WBC (0-5/HPF) Ur Squamous Epith Cells (0-5/HPF) Urine Bacteria (None) Ur Culture Indicated? U Opiates 300ng/mL cut (Negative) Ur Oxycodone Screen (Negative) Urine Methadone Screen (Negative) Ur Barbiturates Screen (Negative) U Tricyclic Antidepress (Negative) Ur Phencyclidine Scrn (Negative) Ur Amphetamines Screen (Negative) U Methamphetamines Scrn (Negative) Ur MDMA Scrn (Ecstasy) (Negative) U Benzodiazepines Scrn (Negative) Urine Cocaine Screen (Negative) U Marijuana (THC) Screen (Negative) Ethyl Alcohol ( - 10) mg/dL SARS-CoV-2 (PCR) (Negative) Influenza A (RT-PCR) (NEGATIVE) Influenza B (RT-PCR) (NEGATIVE) RSV (PCR) (Negative) 08/07/22 08/07/22 08/07/22 Range/Units 15:45 15:45 15:45 WBC (4.5-11.0) X10^3/uL RBC (4.5-5.9) X10^6/uL Hgb (13.5-17.5) g/dL Hct (41-53) % MCV (80-100) fL MCH (26-34) PG MCHC (30-36) % RDW (11.6-14.8) % Plt Count (150-400) X10^3/uL Neut % (Auto) (50-75) % Lymph % (Auto) (25-40) % [place] % (Auto) (3-14) % Eos % (Auto) (2-4) % Baso % (Auto) (0-2) % Neut # (Auto) (8624-1351) /uL Lymph # (Auto) (0188-7293) /uL [place] # (Auto) (0-900) /uL Eos # (Auto) (0-450) /uL Baso # (Auto) (0-100) /uL Sodium (137-145) mmol/L Potassium (3.4-5.1) mmol/L Chloride (98-107) mmol/L Carbon Dioxide (22-32) mmol/L BUN (9-20) mg/dL Creatinine (0.66-1.25) mg/dL Estimated GFR (>60) mL/min BUN/Creatinine Ratio (6-22) Glucose (80-110) mg/dL Lactate (0.7-2.1) mmol/L Calcium (8.4-10.2) mg/dL Total Bilirubin (0.2-1.3) mg/dL AST (17-59) IU/L ALT (<50) IU/L Alkaline Phosphatase (38-126) U/L Total Creatine Kinase (55-170) U/L CK-MB (CK-2) CK-MB (CK-2) Rel Index Troponin I (0.01-0.034) ng/mL Total Protein (6.3-8.2) g/dL Albumin (3.5-5.0) g/dL Globulin (1.7-4.1) g/dL Albumin/Globulin Ratio (1.0-2.8) Procalcitonin 0.58 H (<0.5) ng/mL Urine Color Urine Appearance Urine pH (4.5-8.0) Ur Specific [place] (1.000-1.035) Urine Protein (Negative) Urine Glucose (UA) (Negative) g/dL Urine Ketones (NEGATIVE) Urine Occult Blood (Negative) Urine Nitrate (Negative) Urine Bilirubin (NEGATIVE) Ur Bilirubin Confirm (Negative) Urine Urobilinogen (0.2) E.U./dL Ur Leukocyte Esterase (NEGATIVE) Urine RBC (0-5/HPF) Urine WBC (0-5/HPF) Ur Squamous Epith Cells (0-5/HPF) Urine Bacteria (None) Ur Culture Indicated? U Opiates 300ng/mL cut (Negative) Ur Oxycodone Screen (Negative) Urine Methadone Screen (Negative) Ur Barbiturates Screen (Negative) U Tricyclic Antidepress (Negative) Ur Phencyclidine Scrn (Negative) Ur Amphetamines Screen (Negative) U Methamphetamines Scrn (Negative) Ur MDMA Scrn (Ecstasy) (Negative) U Benzodiazepines Scrn (Negative) Urine Cocaine Screen (Negative) U Marijuana (THC) Screen (Negative) Ethyl Alcohol < 10 ( - 10) mg/dL SARS-CoV-2 (PCR) Negative (Negative) Influenza A (RT-PCR) Flu a negative (NEGATIVE) Influenza B (RT-PCR) Flu b negative (NEGATIVE) RSV (PCR) Negative (Negative) 08/07/22 08/07/22 Range/Units 17:01 17:01 WBC (4.5-11.0) X10^3/uL RBC (4.5-5.9) X10^6/uL Hgb (13.5-17.5) g/dL Hct (41-53) % MCV (80-100) fL MCH (26-34) PG MCHC (30-36) % RDW (11.6-14.8) % Plt Count (150-400) X10^3/uL Neut % (Auto) (50-75) % Lymph % (Auto) (25-40) % [place] % (Auto) (3-14) % Eos % (Auto) (2-4) % Baso % (Auto) (0-2) % Neut # (Auto) (5434-8221) /uL Lymph # (Auto) (0050-8039) /uL [place] # (Auto) (0-900) /uL Eos # (Auto) (0-450) /uL Baso # (Auto) (0-100) /uL Sodium (137-145) mmol/L Potassium (3.4-5.1) mmol/L Chloride (98-107) mmol/L Carbon Dioxide (22-32) mmol/L BUN (9-20) mg/dL Creatinine (0.66-1.25) mg/dL Estimated GFR (>60) mL/min BUN/Creatinine Ratio (6-22) Glucose (80-110) mg/dL Lactate (0.7-2.1) mmol/L Calcium (8.4-10.2) mg/dL Total Bilirubin (0.2-1.3) mg/dL AST (17-59) IU/L ALT (<50) IU/L Alkaline Phosphatase (38-126) U/L Total Creatine Kinase (55-170) U/L CK-MB (CK-2) CK-MB (CK-2) Rel Index Troponin I (0.01-0.034) ng/mL Total Protein (6.3-8.2) g/dL Albumin (3.5-5.0) g/dL Globulin (1.7-4.1) g/dL Albumin/Globulin Ratio (1.0-2.8) Procalcitonin (<0.5) ng/mL Urine Color Yellow Urine Appearance Clear Urine pH 5.5 (4.5-8.0) Ur Specific [place] 1.025 (1.000-1.035) Urine Protein Trace H (Negative) Urine Glucose (UA) Negative (Negative) g/dL Urine Ketones 1+ H (NEGATIVE) Urine Occult Blood Negative (Negative) Urine Nitrate Negative (Negative) Urine Bilirubin 1+ H (NEGATIVE) Ur Bilirubin Confirm Negative (Negative) Urine Urobilinogen 0.2 (0.2) E.U./dL Ur Leukocyte Esterase Negative (NEGATIVE) Urine RBC None seen (0-5/HPF) Urine WBC 0-1/hpf (0-5/HPF) Ur Squamous Epith Cells None seen (0-5/HPF) Urine Bacteria Occasional (0-1) (None) Ur Culture Indicated? Cult not indicated U Opiates 300ng/mL cut Positive H (Negative) Ur Oxycodone Screen Negative (Negative) Urine Methadone Screen Negative (Negative) Ur Barbiturates Screen Negative (Negative) U Tricyclic Antidepress Negative (Negative) Ur Phencyclidine Scrn Negative (Negative) Ur Amphetamines Screen Negative (Negative) U Methamphetamines Scrn Negative (Negative) Ur MDMA Scrn (Ecstasy) Negative (Negative) U Benzodiazepines Scrn Negative (Negative) Urine Cocaine Screen Negative (Negative) U Marijuana (THC) Screen Negative (Negative) Ethyl Alcohol ( - 10) mg/dL SARS-CoV-2 (PCR) (Negative) Influenza A (RT-PCR) (NEGATIVE) Influenza B (RT-PCR) (NEGATIVE) RSV (PCR) (Negative) Imaging Data CT scan - head: Radiologist's Impression: : 1945 Acct:[id number] Age/Sex: 77 / M Date of Service: 08/07/22 Loc: ED Accession Number: [id number] ?? Procedure: CT head/brain wo con Ordering Provider: Suha Randolph D.O. PROCEDURE:? CT HEAD/BRAIN WO CON ? INDICATIONS:? fall ? TECHNIQUE:? Noncontrast 4.5 mm thick angled axial sections acquired from the foramen magnum to the vertex, with coronal and sagittal reformats.? For radiation dose reduction, the following was used:? automated exposure control, adjustment of mA and/or kV according to patient size.? ? COMPARISON:? [facility], CT, CT HEAD/BRAIN WO CON, 06/21/2021, 15:01. ? FINDINGS:? Image quality:? Excellent.? ? CSF spaces:? Basal cisterns are patent.? No extra-axial fluid collections.? The ventricles are symmetric in size and shape.? ? Brain:? No intracranial bleeds or masses.? There is cerebral volume loss for age, with resultant ventricular and sulcal prominence.? There are periventricular and deep white matter chronic small vessel ischemic changes.? There is intracranial internal carotid artery atherosclerosis.? ? Skull and face:? Calvarium and visualized facial bones appear intact, without suspicious lesions.? ? Sinuses:? Visualized sinuses and mastoids are clear.? ? IMPRESSION:? 1. Volume loss and small vessel ischemic disease. 2. No acute process.? ? ? Dictated by: Noe Albert M.D. on 08/07/2022 at 15:31 ? ? CT - cervical spine: Radiologist's Impression: t: Yazan Anderson MR#: [id number] : 1945 Acct:[id number] Age/Sex: 77 / M Date of Service: 08/07/22 Loc: ED Accession Number: [id number] ?? Procedure: CT cervical spine wo con Ordering Provider: Suha Randolph D.O. PROCEDURE:? CT CERVICAL SPINE WO CON ? INDICATIONS:? fall ? TECHNIQUE:? Noncontrast 3 mm thick sections acquired from the skull base to the T4 level.? Sagittal and coronal reformats were then constructed.? For radiation dose reduction, the following was used:? automated exposure control, adjustment of mA and/or kV according to patient size.? ? COMPARISON:? None. ? FINDINGS:? Image quality:? Excellent.? ? Bones:? There is mild subacute appearing wedging of T3 and T4.? No definite acute fracture.? Multilevel degenerative disc and facet disease.? Visualized superior ribs are intact.? ? Soft tissues:? Prevertebral soft tissues are normal in thickness.? No paravertebral hematomas.? No apical pneumothoraces.? ? ? IMPRESSION:? 1. No evidence of acute fracture. 2. Mild subacute appearing fractures of T3 and T4.? This could be further assessed with nonemergent outpatient follow-up thoracic spine MRI, if clinically indicated. ? ? ? Dictated by: Noe Albert M.D. on 08/07/2022 at 15:37 ? ? Approved by: Noe Albert M.D. on 08/07/2022 at 15:40 ? Chest x-ray: Radiologist's Impression: XRay Report Signed Patient: Yazan Anderson MR#: [id number] : 1945 Acct:[id number] Age/Sex: 77 / M Date of Service: 08/07/22 Loc: ED Accession Number: [id number] ?? Procedure: XR chest 1V Ordering Provider: Suha Randolph D.O. PROCEDURE:? XR CHEST 1V ? INDICATIONS:? fall ? TECHNIQUE:? One view of the chest was acquired.? ? COMPARISON:? [facility], , XR CHEST 1V, 06/21/2021, 11:04. ? FINDINGS:? ? Surgical changes and devices:? None.? ? Lungs and pleura:? Lungs are clear.? No pleural effusions or pneumothorax.? ? Mediastinum:? Mediastinal contours appear normal.? Heart size is normal.? ? Bones and chest wall:? No suspicious bony lesions.? Overlying soft tissues a ppear unremarkable.? ? IMPRESSION:? No acute process. ? ? Dictated by: Noe Albert M.D. on 08/07/2022 at 15:36 Extremity x-ray #1: Radiologist's Impression: ent: Yazan Anderson MR#: [id number] : 1945 Acct:[id number] Age/Sex: 77 / M Date of Service: 08/07/22 Loc: ED Accession Number: [id number] ?? Procedure: XR clavicle RT Ordering Provider: Suha Randolph D.O. PROCEDURE:? XR CLAVICLE RT ? INDICATIONS:? fall ? TECHNIQUE:? 2 views of the clavicle were acquired.? ? COMPARISON:? None. ? FINDINGS:? ? Bones:? Moderately displaced comminuted fracture of the distal clavicle. ? Soft tissues:? No suspicious soft tissue calcifications.? ? IMPRESSION:? Distal clavicular fracture. ? ? Dictated by: Noe Albert M.D. on 08/07/2022 at 15:36 ? ? Extremity x-ray #2: Radiologist's Impression: Signed Patient: Yazan Anderson MR#: [id number] : 1945 Acct:[id number] Age/Sex: 77 / M Date of Service: 08/07/22 Loc: ED Accession Number: [id number] ?? Procedure: XR hip w pel if done RT 2V Ordering Provider: Suha Randolph D.O. PROCEDURE:? XR HIP W PEL IF DONE RT 2V ? INDICATIONS:? fall ? TECHNIQUE:? AP pelvis with lateral view(s) of the left hip(s).? ? COMPARISON:? [facility], , XR HIP W PEL IF DONE LT 2V, 06/21/2021, 18:23. ? FINDINGS:? ? Bones:? No fractures or dislocations.? Pelvic ring appears intact.? No hernandez spicious bony lesions.? ORIF of the left hip. ? Soft tissues:? The visualized bowel gas pattern is normal.? No suspicious soft tissue calcifications.? ? ? IMPRESSION:? No acute fracture. No osseous lesion. If symptoms and/or clinical suspicion for pathology persist, further assessment with repeat, or advanced imaging (e.g., CT, MRI, or bone scan) may be helpful for further assessment. ? ? ? Dictated by: Noe Albert M.D. on 08/07/2022 at 15:37 ? ? CT pelvis: Radiologist's Impression: Signed Patient: Yazan Anderson MR#: [id number] : 1945 Acct:[id number] Age/Sex: 77 / M Date of Service: 08/07/22 Loc: ED Accession Number: [id number] ?? Procedure: CT pelvis wo con Ordering Provider: Suha Randolph D.O. PROCEDURE:? CT PEL WO CON ? INDICATIONS:? pain right ? TECHNIQUE:? Noncontrast 3 mm axial sections acquired through the bony pelvis, with coronal and sagittal reformatting.? ? COMPARISON:? [facility], CR, XR HIP W PEL IF DONE RT 2V, 08/07/2022, 15:16. ? FINDINGS:? Image quality:? Excellent.? ? Bones:? Chronic sclerosis within the right posterior iliac wing.? Mildly displaced fracture of the right pubic root, superior pubic ramus, and inferior pubic ramus.? ORIF of the left hip.? Mild chronic appearing lower lumbar compression fractures. ? Soft tissues:? Visualized bowel loops within normal limits.? No regional adenopathy.? Infrarenal abdominal aortic aneurysm measuring 43 mm. ? ? IMPRESSION:? 1. Minimally displaced right obturator ring fracture, not seen by plain film. 2. Infrarenal abdominal aortic aneurysm. ? ? Dictated by: Noe Albert M.D. on 08/07/2022 at 16:21 ? ? ECG Data Interpretation: Sinus tachycardia rate 119 VT interval 146 QRS [address] changes or T- wave inversions lots of artifact noted right bundle-branch block present in sim ilar to previous no obvious ST elevations or depressions MDM Narrative Medical decision making narrative: Patient 77-year-old male presents as a ground level fall. Unknown how long he has been down for or how he fell. Sounds as though he may have had syncopal or presyncopal episodes. He does not report any infectious symptoms. He is noted to be mildly anemic with hemoglobin 8.9 and hematocrit 26.2 previously 1 year ago he had hemoglobin 7.9 and hematocrit 22.9. Electrolytes are within normal limits creatinine 0.7 today, bilirubin is noted to be mildly elevated at 1.4 with AST 81 ALT 62 and alk-phos 130 no significant right upper quadrant pain. Procalcitonin mildly elevated at 0.58 without obvious sign of infection. Viral panel is negative. X-rays showed right distal clavicle fracture which is questionable if it is old or new patient's seems have known about it x-ray for pelvis was negative however CT does show an obturator ring fracture along with nondisplaced acetabular fracture. I have notified and talked to Dr. Oakley on- call orthopedics who will kindly consult but does not recommend any interventi on. Pelvis CT also showed infrarenal aneurysm and patient has multiple syncopal episodes in his mildly anemic so CT angio was done. Infrarenal aneurysm measuring 4.2 x 4.4 cm with a mural thrombus and peripheral calcifications is found. Awaiting to hear back from vascular surgery. Incidental aneurysm found after possible syncopal episode. Signed out to Dr. Andrea Molina kindly accepts patient <Wendy Reggie Mendez, DO - Last Filed: 08/08/22 03:06> Lab Data Labs: Lab Results 08/07/22 08/07/22 08/07/22 Range/Units 15:45 15:45 15:45 WBC 10.2 (4.5-11.0) X10^3/uL RBC 2.67 L (4.5-5.9) X10^6/uL Hgb 8.9 L (13.5-17.5) g/dL Hct 26.2 L (41-53) % MCV 98.0 (80-100) fL MCH 33.1 (26-34) PG MCHC 33.8 (30-36) % RDW 19.3 H (11.6-14.8) % Plt Count 239 (150-400) X10^3/uL Neut % (Auto) 84.0 H (50-75) % Lymph % (Auto) 5.5 L (25-40) % [place] % (Auto) 10.1 (3-14) % Eos % (Auto) 0.0 L (2-4) % Baso % (Auto) 0.4 (0-2) % Neut # (Auto) 8500 H (4772-5408) /uL Lymph # (Auto) 600 L (6315-4409) /uL [place] # (Auto) 1000 H (0-900) /uL Eos # (Auto) 0 (0-450) /uL Baso # (Auto) 0 (0-100) /uL Sodium 143 (137-145) mmol/L Potassium 4.0 (3.4-5.1) mmol/L Chloride 101 (98-107) mmol/L Carbon Dioxide 29 (22-32) mmol/L BUN 24 H (9-20) mg/dL Creatinine 0.73 (0.66-1.25) mg/dL Estimated GFR > 60 (>60) mL/min BUN/Creatinine Ratio 32.9 H (6-22) Glucose 115 H (80-110) mg/dL Lactate 1.4 (0.7-2.1) mmol/L Calcium 8.8 (8.4-10.2) mg/dL Total Bilirubin 1.4 H (0.2-1.3) mg/dL AST 81 H (17-59) IU/L ALT 62 H (<50) IU/L Alkaline Phosphatase 130 H (38-126) U/L Total Creatine Kinase 68 (55-170) U/L CK-MB (CK-2) TNP CK-MB (CK-2) Rel Index TNP Troponin I < 0.012 (0.01-0.034) ng/mL Total Protein 5.8 L (6.3-8.2) g/dL Albumin 3.6 (3.5-5.0) g/dL Globulin 2.2 (1.7-4.1) g/dL Albumin/Globulin Ratio 1.6 (1.0-2.8) Procalcitonin (<0.5) ng/mL Urine Color Urine Appearance Urine pH (4.5-8.0) Ur Specific [place] (1.000-1.035) Urine Protein (Negative) Urine Glucose (UA) (Negative) g/dL Urine Ketones (NEGATIVE) Urine Occult Blood (Negative) Urine Nitrate (Negative) Urine Bilirubin (NEGATIVE) Ur Bilirubin Confirm (Negative) Urine Urobilinogen (0.2) E.U./dL Ur Leukocyte Esterase (NEGATIVE) Urine RBC (0-5/HPF) Urine WBC (0-5/HPF) Ur Squamous Epith Cells (0-5/HPF) Urine Bacteria (None) Ur Culture Indicated? U Opiates 300ng/mL cut (Negative) Ur Oxycodone Screen (Negative) Urine Methadone Screen (Negative) Ur Barbiturates Screen (Negative) U Tricyclic Antidepress (Negative) Ur Phencyclidine Scrn (Negative) Ur Amphetamines Screen (Negative) U Methamphetamines Scrn (Negative) Ur MDMA Scrn (Ecstasy) (Negative) U Benzodiazepines Scrn (Negative) Urine Cocaine Screen (Negative) U Marijuana (THC) Screen (Negative) Ethyl Alcohol ( - 10) mg/dL SARS-CoV-2 (PCR) (Negative) Influenza A (RT-PCR) (NEGATIVE) Influenza B (RT-PCR) (NEGATIVE) RSV (PCR) (Negative) 08/07/22 08/07/22 08/07/22 Range/Units 15:45 15:45 15:45 WBC (4.5-11.0) X10^3/uL RBC (4.5-5.9) X10^6/uL Hgb (13.5-17.5) g/dL Hct (41-53) % MCV (80-100) fL MCH (26-34) PG MCHC (30-36) % RDW (11.6-14.8) % Plt Count (150-400) X10^3/uL Neut % (Auto) (50-75) % Lymph % (Auto) (25-40) % [place] % (Auto) (3-14) % Eos % (Auto) (2-4) % Baso % (Auto) (0-2) % Neut # (Auto) (1691-3476) /uL Lymph # (Auto) (0993-2684) /uL [place] # (Auto) (0-900) /uL Eos # (Auto) (0-450) /uL Baso # (Auto) (0-100) /uL Sodium (137-145) mmol/L Potassium (3.4-5.1) mmol/L Chloride (98-107) mmol/L Carbon Dioxide (22-32) mmol/L BUN (9-20) mg/dL Creatinine (0.66-1.25) mg/dL Estimated GFR (>60) mL/min BUN/Creatinine Ratio (6-22) Glucose (80-110) mg/dL Lactate (0.7-2.1) mmol/L Calcium (8.4-10.2) mg/dL Total Bilirubin (0.2-1.3) mg/dL AST (17-59) IU/L ALT (<50) IU/L Alkaline Phosphatase (38-126) U/L Total Creatine Kinase (55-170) U/L CK-MB (CK-2) CK-MB (CK-2) Rel Index Troponin I (0.01-0.034) ng/mL Total Protein (6.3-8.2) g/dL Albumin (3.5-5.0) g/dL Globulin (1.7-4.1) g/dL Albumin/Globulin Ratio (1.0-2.8) Procalcitonin 0.58 H (<0.5) ng/mL Urine Color Urine Appearance Urine pH (4.5-8.0) Ur Specific [place] (1.000-1.035) Urine Protein (Negative) Urine Glucose (UA) (Negative) g/dL Urine Ketones (NEGATIVE) Urine Occult Blood (Negative) Urine Nitrate (Negative) Urine Bilirubin (NEGATIVE) Ur Bilirubin Confirm (Negative) Urine Urobilinogen (0.2) E.U./dL Ur Leukocyte Esterase (NEGATIVE) Urine RBC (0-5/HPF) Urine WBC (0-5/HPF) Ur Squamous Epith Cells (0-5/HPF) Urine Bacteria (None) Ur Culture Indicated? U Opiates 300ng/mL cut (Negative) Ur Oxycodone Screen (Negative) Urine Methadone Screen (Negative) Ur Barbiturates Screen (Negative) U Tricyclic Antidepress (Negative) Ur Phencyclidine Scrn (Negative) Ur Amphetamines Screen (Negative) U Methamphetamines Scrn (Negative) Ur MDMA Scrn (Ecstasy) (Negative) U Benzodiazepines Scrn (Negative) Urine Cocaine Screen (Negative) U Marijuana (THC) Screen (Negative) Ethyl Alcohol < 10 ( - 10) mg/dL SARS-CoV-2 (PCR) Negative (Negative) Influenza A (RT-PCR) Flu a negative (NEGATIVE) Influenza B (RT-PCR) Flu b negative (NEGATIVE) RSV (PCR) Negative (Negative) 08/07/22 08/07/22 Range/Units 17:01 17:01 WBC (4.5-11.0) X10^3/uL RBC (4.5-5.9) X10^6/uL Hgb (13.5-17.5) g/dL Hct (41-53) % MCV (80-100) fL MCH (26-34) PG MCHC (30-36) % RDW (11.6-14.8) % Plt Count (150-400) X10^3/uL Neut % (Auto) (50-75) % Lymph % (Auto) (25-40) % [place] % (Auto) (3-14) % Eos % (Auto) (2-4) % Baso % (Auto) (0-2) % Neut # (Auto) (1537-8109) /uL Lymph # (Auto) (6002-1690) /uL [place] # (Auto) (0-900) /uL Eos # (Auto) (0-450) /uL Baso # (Auto) (0-100) /uL Sodium (137-145) mmol/L Potassium (3.4-5.1) mmol/L Chloride (98-107) mmol/L Carbon Dioxide (22-32) mmol/L BUN (9-20) mg/dL Creatinine (0.66-1.25) mg/dL Estimated GFR (>60) mL/min BUN/Creatinine Ratio (6-22) Glucose (80-110) mg/dL Lactate (0.7-2.1) mmol/L Calcium (8.4-10.2) mg/dL Total Bilirubin (0.2-1.3) mg/dL AST (17-59) IU/L ALT (<50) IU/L Alkaline Phosphatase (38-126) U/L Total Creatine Kinase (55-170) U/L CK-MB (CK-2) CK-MB (CK-2) Rel Index Troponin I (0.01-0.034) ng/mL Total Protein (6.3-8.2) g/dL Albumin (3.5-5.0) g/dL Globulin (1.7-4.1) g/dL Albumin/Globulin Ratio (1.0-2.8) Procalcitonin (<0.5) ng/mL Urine Color Yellow Urine Appearance Clear Urine pH 5.5 (4.5-8.0) Ur Specific [place] 1.025 (1.000-1.035) Urine Protein Trace H (Negative) Urine Glucose (UA) Negative (Negative) g/dL Urine Ketones 1+ H (NEGATIVE) Urine Occult Blood Negative (Negative) Urine Nitrate Negative (Negative) Urine Bilirubin 1+ H (NEGATIVE) Ur Bilirubin Confirm Negative (Negative) Urine Urobilinogen 0.2 (0.2) E.U./dL Ur Leukocyte Esterase Negative (NEGATIVE) Urine RBC None seen (0-5/HPF) Urine WBC 0-1/hpf (0-5/HPF) Ur Squamous Epith Cells None seen (0-5/HPF) Urine Bacteria Occasional (0-1) (None) Ur Culture Indicated? Cult not indicated U Opiates 300ng/mL cut Positive H (Negative) Ur Oxycodone Screen Negative (Negative) Urine Methadone Screen Negative (Negative) Ur Barbiturates Screen Negative (Negative) U Tricyclic Antidepress Negative (Negative) Ur Phencyclidine Scrn Negative (Negative) Ur Amphetamines Screen Negative (Negative) U Methamphetamines Scrn Negative (Negative) Ur MDMA Scrn (Ecstasy) Negative (Negative) U Benzodiazepines Scrn Negative (Negative) Urine Cocaine Screen Negative (Negative) U Marijuana (THC) Screen Negative (Negative) Ethyl Alcohol ( - 10) mg/dL SARS-CoV-2 (PCR) (Negative) Influenza A (RT-PCR) (NEGATIVE) Influenza B (RT-PCR) (NEGATIVE) RSV (PCR) (Negative) MDM Narrative Medical decision making narrative: Patient 77-year-old male presents as a ground level fall. Unknown how long he has been down for or how he fell. Sounds as though he may have had syncopal or presyncopal episodes. He does not report any infectious symptoms. He is noted to be mildly anemic with hemoglobin 8.9 and hematocrit 26.2 previously 1 year ago he had hemoglobin 7.9 and hematocrit 22.9. Electrolytes are within normal limits creatinine 0.7 today, bilirubin is noted to be mildly elevated at 1.4 with AST 81 ALT 62 and alk-phos 130 no significant right upper quadrant pain. Procalcitonin mildly elevated at 0.58 without obvious sign of infection. Viral panel is negative. X-rays showed right distal clavicle fracture which is questionable if it is old or new patient's seems have known about it x-ray for pelvis was negative however CT does show an obturator ring fracture along with nondisplaced acetabular fracture. I have notified and talked to Dr. Oakley on- call orthopedics who will kindly consult but does not recommend any intervention . Pelvis CT also showed infrarenal aneurysm and patient has multiple syncopal episodes in his mildly anemic so CT angio was done. Infrarenal aneurysm measuring 4.2 x 4.4 cm with a mural thrombus and peripheral calcifications is found. Awaiting to hear back from vascular surgery. Incidental aneurysm found after possible syncopal episode. Signed out to Dr. Andrea Molina kindly accepts patient. Andrea 08/07/22: Patient signed out to myself by Dr. Randolph for patient who presents as either ground level fall or syncope. Patient was seen and evaluated independently by myself. Patient is anemic, slightly tachycardic persistently through his stay he was very hypertensive when he arrived but that has been slowly improving he is not been hypotensive up to this point. Hemoglobin was found to be 8.9, electrolytes were within normal limits creatinine was 0.7 LFTs are slightly elevated with bilirubin 1.4, AST 81 ALT 62 alk-phos 130. Patient has right distal clavicle fracture he does have some bruising present so I suspect this is new although he seems to have known about it from before. He had imaging that does show obturator ring and nondisplaced acetabular fracture some presacral edema and multiple prior compression and rib fractures majority of which appear not to be new but he does have some chest pain and may have some new rib fracture as well. Patient's main complaint is pain in his hip. 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 Patient has dopplerable pulses bilaterally he states he is always had a hard time having people find his pulses in his feet. He is slightly shaky he states that is normal for him he denies any alcohol withdrawals although he does indicate that he drinks alcohol daily. Patient is COVID/influenza and RSV negative. Patient also had head CT which shows no acute process, cervical spine CT which shows mild subacute appearing T3 for fractures, T8 fracture is of uncertain age severe T12 compression and [id number] LV compression fractures do not appear significantly changed from MRI on 04/22/2022 patient has post surgical left proximal femoral fracture fixation. EKG was reviewed patient has sinus tachycardia rate of 119 VT 146 QRS of 98 QTC 483. Patient was sinus rhythm on prior 06/21/2021 but otherwise no acute ST changes. He has received fluids, Zofran and pain medication here in the department most recently at 5:58 p.m. he denies any withdrawal symptoms at this time. Waiting to hear back from vascular surgery if patient needs transfer for this. Patient's orthopedic injuries were reviewed with Dr. Oakley (orthopedics) and Dr. Randolph and are felt to be nonoperative and patient is felt appropriate from an orthopedic standpoint to be at our facility. Spoke with vascular surgery at [place], they were not able to physically review his images we verbally reviewed them. Patient does need elective outpatient treatment/surgery but can be seen in the office. They are willing to see him in the office and can be referred to them. Spoke with LINH Flores, reviewed all of this. She accepts for observation. Plan for admission patient has had syncope, anemia, vocal orthopedic fractures some are chronic but he does have new hip fractures today persistent tachycardia with a possibility of alcohol withdrawal. Discharge Plan Departure Patient Disposition: Admitted as Observation Clinical Impression: Acetabulum fracture, right, Closed pelvic fracture, Clavicle fracture, Aneurysm of infrarenal abdominal aorta Admit Date/Time: 08/07/22 22:00 Admit Provider: Michelle Flores
[2022-08-07 16:27] LABS: Lactate (Lactic Acid) 1.4 mmol/L (0.7-2.1)
[2022-08-07 16:28] LABS: Alanine Aminotransferase 62 IU/L (<50); Albumin 3.6 g/dL (3.5-5.0); Albumin Globulin Ratio 1.6 (1.0-2.8); Alkaline Phosphatase 130 U/L (38-126); Aspartate Aminotransferase 81 IU/L (17-59); BUN Creatinine Ratio 32.9 (6-22); Bilirubin Total 1.4 mg/dL (0.2-1.3); Blood Urea Nitrogen 24 mg/dL (9-20); Calcium 8.8 mg/dL (8.4-10.2); Carbon Dioxide 29 mmol/L (22-32); Chloride 101 mmol/L (98-107); Creatine Kinase 68 U/L (55-170); Estimated Glomerular Filt Rate > 60 mL/min (>60); Globulin 2.2 g/dL (1.7-4.1); Glucose 115 mg/dL (80-110); HEMOLYSIS < 15 (0-50); Sodium 143 mmol/L (137-145); Total Protein 5.8 g/dL (6.3-8.2)
[2022-08-07 16:40] LABS: Troponin I < 0.012 ng/mL (0.01-0.034)
--- NOTE | 2022-08-07 16:40 | PC.NURSE ---
Pt requesting water, educated pt on NPO status, pt reports dry mouth, provided mouth swab, pt coughing immediately after. Pt states his throat feels dry, assessed throat with light and large uvula noted, no edema noted. Pt consistently 85% on RA, 2L NC applied. Dr. Randolph notified.
[2022-08-07 16:43] LABS: Ethanol (ETOH) < 10 mg/dL
[2022-08-07 16:48] LABS: Influenza A - CEPHEID Flu A NEGATIVE (NEGATIVE); Influenza B - CEPHEID Flu B NEGATIVE (NEGATIVE); Respiratory Syncytial Virus Negative (Negative)
--- NOTE | 2022-08-07 16:50 | DI.CT.S_ITS ---
PROCEDURE: CT ANGIO CHEST ABDOMEN PELVIS INDICATIONS: Infrarenal abdominal aortic aneurysm. TECHNIQUE: Precontrast 5 mm thick sections acquired from the lung apices to the iliac crests. After the administration of intravenous contrast, 2.5 mm thick sections again acquired from the lung apices to the iliac crests. Maximum intensity projection (MIP) oblique sagittal and coronal reformats were then acquired. For radiation dose reduction, the following was used: automated exposure control. COMPARISON: [facility], MR, MR LUMBAR SPINE WO CON, 04/22/2022, 11:30. [facility], CT, CT PEL WO CON, 08/07/2022, 15:49. FINDINGS: Image quality: Excellent. VASCULATURE: The heart is normal in size. Moderate coronary artery calcifications. The main pulmonary artery is normal in size without a central filling defect. Thoracic aorta is normal in size without aortic dissection or intramural hematoma. Mild atherosclerotic calcifications. The proximal arch vessels are patent. Fusiform infrarenal abdominal aortic aneurysm is seen measuring approximately 4.2 x 4.4 cm in diameter with mural thrombus and peripheral calcifications. Central contrast renal is patent. The aneurysm neck is well below the renal artery origins. Moderate atherosclerotic calcifications are seen at the celiac artery origin without high-grade stenosis. Mild atherosclerotic calcifications are seen in the superior mesenteric artery. Inferior mesenteric artery arises from the aneurysm sac without internal flow visualized. Moderate atherosclerotic calcifications are seen in the bilateral renal arteries without significant stenosis at the origins. Moderate to severe atherosclerotic calcifications are seen within the common, internal, and external iliac arteries with mild to moderate narrowing. Atherosclerotic calcifications are seen within the common femoral arteries bilaterally with at least moderate narrowing. There is occlusion of the right superficial femoral artery at the origin. A prominent right profunda femoral artery is patent. Atherosclerotic calcifications are seen within the left superficial and deep femoral arteries without high-grade stenosis. CHEST: Lungs and pleura: Moderate centrilobular and paraseptal emphysema. No acute consolidation. A 3 mm nodule is seen in the posterior left lower lobe (147/5). Additional 3 mm nodule is seen in the medial right lower lobe (180/5). These nodules are considered benign given their small size. No pleural effusions or pneumothorax. Central and peripheral airways are patent and normal in caliber. Mediastinum: Heart size is normal. No pericardial effusion. No mediastinal or hilar adenopathy by size criteria. Central pulmonary arteries are normal in size. Esophagus is normal in caliber. No hiatal hernias. Chest wall: No axillary adenopathy by size criteria. Thyroid is unremarkable. ABDOMEN: Solid organs: Liver is diffusely hypoattenuating, consistent with fatty infiltration. Gallbladder is unremarkable. Biliary system is non dilated. Pancreas enhances normally. Spleen is normal in size and enhancement. No adrenal nodules. Both kidneys are normal in size and enhancement, without hydronephrosis. Peritoneum and bowel: No free fluid or air. Bowel loops are normal in caliber and wall thickness. Nodes and vessels: No retroperitoneal or mesenteric adenopathy by size criteria. Inferior vena cava is normal in morphology. Miscellaneous: No ventral hernias. PELVIS: Genitourinary: Bladder wall thickness is normal. Miscellaneous: No inguinal hernias or adenopathy. No ventral hernias. Bones: Minimally displaced comminuted fracture of the right inferior and superior pubic rami as seen on CT pelvis from earlier the same day. Comminuted nondisplaced right acetabular fracture is also noted. No step-off at the articular surface. Postsurgical changes are seen from left proximal femoral fracture fixation. Severe T12 compression fracture and mild to moderate L3 compression fracture do not appear significantly changed when compared to the MRI from 04/22/2022. Moderate T8 compression fracture is of uncertain age. Nondisplaced mid sternal fracture is seen of uncertain age, but most likely subacute or chronic. Multiple bilateral rib fractures are seen in various stages of healing. Moderate presacral edema is seen, and a subtle nondisplaced sacral fracture is not excluded. IMPRESSION: 1. Infrarenal abdominal aortic aneurysm measures up to 4.4 cm in diameter. No aneurysmal rupture, aortic dissection, or intramural hematoma. 2. 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 Multifocal moderate to severe aortoiliac and proximal femoral atherosclerosis. 3. Moderate coronary artery calcifications. 4. Minimally displaced fractures of the right superior and inferior pubic rami. Comminuted fracture of the adjacent right acetabulum is seen without significant displacement. Moderate presacral edema is of uncertain etiology but a nondisplaced sacral fracture is not excluded. 5. Unchanged chronic compression fractures at T12 and L3. Moderate T8 compression fracture is seen of uncertain age. 6. Multiple bilateral rib fractures are seen in various stages of healing. Approved by: Luis Holman M.D. on 08/07/2022 at 18:00
[2022-08-07 16:58] LABS: Procalcitonin 0.58 ng/mL (<0.5)
[2022-08-07 17:04] LABS: COVID-19 CEPHEID 4-PLEX PCR Negative (Negative)
[2022-08-07 17:15] LABS: Appearance Urine UA CLEAR; Bilirubin Urine UA 1+ (NEGATIVE); Color Urine UA YELLOW; Glucose Urine UA NEGATIVE (Negative); Ketones Urine UA 1+ (NEGATIVE); Leukocyte Esterase Urine UA NEGATIVE (NEGATIVE); Nitrite Urine UA NEGATIVE (Negative); Occult Blood Urine UA NEGATIVE (Negative); Protein Urine UA TRACE (Negative); Specific Gravity Urine UA 1.025 (1.000-1.035); Urobilinogen Urine UA 0.2 E.U./dL (0.2); pH Urine UA 5.5 (4.5-8.0)
[2022-08-07 17:18] LABS: UR Morphine/Opiate cutoff 300 Positive (Negative); Ur Creatinine Normal (Normal); Ur Specific Gravity Normal (Normal); Urine Amphetamines Negative (Negative); Urine Barbiturates Negative (Negative); Urine Benzodiazepines Negative (Negative); Urine Cocaine Negative (Negative); Urine MDMA Negative (Negative); Urine Methadone Negative (Negative); Urine Methamphetamines Negative (Negative); Urine Oxycodone Negative (Negative); Urine Phencyclidine Negative (Negative); Urine Tetrahydrocannabinol Negative (Negative); Urine Tricyclic Antidepressant Negative (Negative); Urine pH Normal (Normal)
[2022-08-07 17:19] LABS: Ictotest Urine Negative (Negative)
--- NOTE | 2022-08-07 17:29 | PC.NURSE ---
Per Dr. Randolph, pt okay to have water. Swallow screen conducted with pt and pt provided water.
[2022-08-07 17:42] LABS: Bacteria Urine Occasional (0-1); Culture Indicated Urine Cult Not Indicated; RBC Urine None Seen (0-5/HPF); Squamous Epithelial Cell Urine None Seen (0-5/HPF); WBC Urine 0-1/HPF (0-5/HPF)
--- NOTE | 2022-08-07 18:19 | PC.NURSE ---
Pt lower extremity CMS intact. Right and left posterior tibial pulses dopplered by Dr. Randolph.
[2022-08-07] MEDS: HYDROMORPHONE 0.5 MG INJ IV ×3 (18:22→22:57)
--- NOTE | 2022-08-07 22:01 | PM.HP.1 ---
History of Present Illness History of Present Illness Date Patient Seen: 08/07/22 Time Patient Seen: 23:00 Chief complaint: GLF Narrative: Yazan Anderson is a 77 y.o. 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 He has a prior clavicle fracture and apparently was unable to get up or bear weight due to severe right hip pain. Currently he states his pain is a 10/10, particularly when moved, denies headache, nausea or vomiting. He is unable to recall why or how he fell. Head CT which indicated no acute process, cervical spine CT which indicated mild subacute appearing fracture of T3, T8 fracture is of uncertain age, severe T12 compression and [id number] LV compression fractures do not appear significantly changed from MRI on 04/22/2022. Notes post surgical left proximal femoral fracture fixation. X-rays indicated right distal clavicle fracture which is questionable if it is old or new patient's seems have known about it x-ray for pelvis was negative however CT does indicate an obturator ring fracture along with nondisplaced acetabular fracture.??Patient has a displaced right distal clavicle fracture he does have some bruising present so I suspect this is new although he seems to have known about it from before.? Imaging does show obturator ring and nondisplaced acetabular fracture some presacral edema and multiple prior compression and rib fractures majority of which appear not to be new but he does have some chest pain and may have some new rib fracture as well.? Patient's main complaint is pain in his hip.? Patient was found to have infrarenal aneurysm incidentally. He denies any abdominal pain but has had possible syncopal episodes with anemia. 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 Patient has dopplerable pulses bilaterally he states he is always had a hard time having people find his pulses in his feet.? He is slightly shaky he states that is normal for him he denies any alcohol withdrawals although he does indicate that he drinks alcohol daily.? He is noted to be mildly anemic with hemoglobin 8.9 and hematocrit 26.2 previously 1 year ago his hemoglobin 7.9 and hematocrit 22.9.? Electrolytes are within normal limits creatinine 0.7 today, bilirubin is noted to be mildly elevated at 1.4 with AST 81 ALT 62 and alk-phos 130 no significant right upper quadrant pain.? Procalcitonin mildly elevated at 0.58 without obvious sign of infection.? Viral panel, COVID/influenza and RSV are negative.? Patient History Medical History CAD (coronary artery disease) Claudication of both lower extremities COPD (chronic obstructive pulmonary disease) HTN (hypertension) Hyperlipidemia Surgical History History of heart artery stent Family & Social History Social History: household members none Safety & Behavioral: Feels Safe in Current Yes Environment Been Physically Hurt or No Threatened By a Person Tobacco & Substance use: Tobacco type cigarettes Smoking Status Current, 1 ppd alcohol intake current alcohol intake frequency 2 hard liquor drinks per day Substance Use Type does not use Meds Home Medications and Allergies Home Medications Medication Instructions Recorded Confirmed Type aspirin 81 mg tablet,delayed 81 mg PO QDAY ##0 06/23/12 06/21/21 History release lisinopril 10 mg tablet 10 mg PO QDAY ##90 12/13/12 06/21/21 Rx atorvastatin 75 mg PO BEDTIME 06/21/21 06/21/21 History ascorbic acid (vitamin C) 500 mg 500 mg PO BID #60 tabs 06/25/21 Rx tablet (Vitamin C) cholecalciferol (vitamin D3) 10 800 unit PO DAILY #60 tabs 06/25/21 Rx mcg (400 unit) tablet (Vitamin D3) clopidogrel 75 mg tablet (Plavix) 75 mg PO DAILY #30 tabs 06/25/21 Rx cyanocobalamin (vitamin B-12) 100 100 mcg PO DAILY #60 tabs 06/25/21 Rx mcg tablet (Vitamin B-12) docusate sodium 100 mg capsule 100 mg PO BID #60 caps 06/25/21 Rx famotidine 20 mg tablet (Pepcid AC) 40 mg PO BID #60 tabs 06/25/21 Rx folic acid 1 mg tablet 1 mg PO DAILY #60 tabs 06/25/21 Rx oxycodone 5 mg tablet 5 mg PO Q6H PRN Pain, Moderate 06/25/21 Rx (4-6) #10 tabs polyethylene glycol 3350 17 gram 17 gm PO BID #60 ea 06/25/21 Rx oral powder packet vitamin 1 tab PO DAILY #60 tabs 06/25/21 Rx no.76-iron,carbonyl 29 mg iron-folic acid 1 mg tablet (Prenatabs Rx) sennosides 8.6 mg tablet (senna) 17.2 mg PO BEDTIME #60 tabs 06/25/21 Rx sucralfate 1 gram tablet 1 gm PO ACHS #120 tabs 06/25/21 Rx Allergies Allergy/AdvReac Type Severity Reaction Status Date / Time No Known Drug Allergies Allergy Verified 08/07/22 15:12 Review of Systems Review of Systems ROS: Yes All systems reviewed with the patient and are negative except as otherwise documented Exam Vital Signs (past 8 hours): - 08/07/22 15:07 08/07/22 15:02 08/07/22 15:05 Temperature 99.2 F Pulse Rate 121 H 141 H Respiratory Rate 22 28 H Blood Pressure 190/84 H 190/84 H Pulse Oximetry 94 Oxygen Delivery Method Room Air Oxygen Flow Rate 08/07/22 15:05 08/07/22 15:37 08/07/22 15:37 Temperature Pulse Rate 119 H 120 H Respiratory Rate 23 25 H Blood Pressure 168/92 H Pulse Oximetry 97 Oxygen Delivery Method Room Air Oxygen Flow Rate 08/07/22 16:00 08/07/22 16:00 08/07/22 16:14 Temperature Pulse Rate 122 H Respiratory Rate 26 H Blood Pressure 149/82 H 154/73 H Pulse Oximetry 93 Oxygen Delivery Method Room Air Oxygen Flow Rate 08/07/22 16:14 08/07/22 16:30 08/07/22 16:30 Temperature Pulse Rate 121 H 128 H Respiratory Rate 23 31 H Blood Pressure 150/99 H Pulse Oximetry 91 90 L Oxygen Delivery Method Room Air Nasal Cannula Oxygen Flow Rate 2 08/07/22 17:00 08/07/22 17:00 08/07/22 17:30 Temperature Pulse Rate 118 H 117 H Respiratory Rate 32 H 24 Blood Pressure 132/87 Pulse Oximetry 95 89 L Oxygen Delivery Method Nasal Cannula Nasal Cannula Oxygen Flow Rate 2 2 08/07/22 18:00 08/07/22 18:17 02/16/23 18:17 Temperature Pulse Rate 117 H 116 H Respiratory Rate 23 35 H Blood Pressure 140/76 Pulse Oximetry 88 L 87 L Oxygen Delivery Method Room Air Room Air Oxygen Flow Rate 08/07/22 18:30 08/07/22 18:30 08/07/22 19:00 Temperature Pulse Rate 113 H 110 H Respiratory Rate 26 H 30 H Blood Pressure 152/103 H Pulse Oximetry 92 95 Oxygen Delivery Method Nasal Cannula Nasal Cannula Oxygen Flow Rate 2 2 08/07/22 19:01 08/07/22 19:01 08/07/22 19:30 Temperature Pulse Rate 112 H Respiratory Rate 29 H Blood Pressure 116/77 128/74 Pulse Oximetry 97 Oxygen Delivery Method Oxygen Flow Rate 08/07/22 19:30 08/07/22 20:00 08/07/22 20:02 Temperature Pulse Rate 109 H 115 H Respiratory Rate 26 H 39 H Blood Pressure 125/98 H Pulse Oximetry 97 94 Oxygen Delivery Method Nasal Cannula Room Air Oxygen Flow Rate 2 08/07/22 20:02 08/07/22 20:30 08/07/22 20:30 Temperature Pulse Rate 115 H 109 H Respiratory Rate 26 H 27 H Blood Pressure 139/84 Pulse Oximetry 98 96 Oxygen Delivery Method Room Air Nasal Cannula Oxygen Flow Rate 2 08/07/22 21:00 08/07/22 21:00 08/07/22 21:30 Temperature Pulse Rate 110 H 109 H Respiratory Rate 20 Blood Pressure 154/84 H Pulse Oximetry 97 Oxygen Delivery Method Nasal Cannula Oxygen Flow Rate 2 Oxygen Delivery Method Nasal Cannula Oxygen Flow Rate 2 Narrative Exam Narrative: Gen: Alert, oriented, cachectic appearing 80 y.o. male, appears uncomfortable HEENT: normocephalic, atraumatic, conjunctiva clear, sclera non-icteric, oral mucosa pink and moist Neck: supple, full ROM, no JVD, trachea is midline Resp: Lungs CTA, non-labored breathing CV: tachy but regular, no murmur or rubs Abd: soft, non-tender, normoactive BTs Skin: Multiple new bruises on right shoulder and both arms, thin and friable Neuro: Alert and oriented X 4 w/no focal deficits. Speech clear and coherent. Extremities: unable to moves lower extremities w/o extreme pain, is normally ambulatory, negative Kim's sign Psyche: normal mood and affect. Objective Labs 08/07/22 15:45 02/16/23 15:45 Labs: Laboratory Results - last 24 hr 08/07/22 08/07/22 08/07/22 15:45 15:45 15:45 WBC 10.2 RBC 2.67 L Hgb 8.9 L Hct 26.2 L MCV 98.0 MCH 33.1 MCHC 33.8 RDW 19.3 H Plt Count 239 Neut % (Auto) 84.0 H Lymph % (Auto) 5.5 L Whitley % (Auto) 10.1 Eos % (Auto) 0.0 L Baso % (Auto) 0.4 Neut # (Auto) 8500 H Lymph # (Auto) 600 L Whitley # (Auto) 1000 H Eos # (Auto) 0 Baso # (Auto) 0 Sodium 143 Potassium 4.0 Chloride 101 Carbon Dioxide 29 BUN 24 H Creatinine 0.73 Estimated GFR > 60 BUN/Creatinine Ratio 32.9 H Glucose 115 H Lactate 1.4 Calcium 8.8 Total Bilirubin 1.4 H AST 81 H ALT 62 H Alkaline Phosphatase 130 H Total Creatine Kinase 68 CK-MB (CK-2) TNP CK-MB (CK-2) Rel Index TNP Troponin I < 0.012 Total Protein 5.8 L Albumin 3.6 Globulin 2.2 Albumin/Globulin Ratio 1.6 Procalcitonin Urine Color Urine Appearance Urine pH Ur Specific [place] Urine Protein Urine Glucose (UA) Urine Ketones Urine Occult Blood Urine Nitrate Urine Bilirubin Ur Bilirubin Confirm Urine Urobilinogen Ur Leukocyte Esterase Urine RBC Urine WBC Ur Squamous Epith Cells Urine Bacteria Ur Culture Indicated? U Opiates 300ng/mL cut Ur Oxycodone Screen Urine Methadone Screen Ur Barbiturates Screen U Tricyclic Antidepress Ur Phencyclidine Scrn Ur Amphetamines Screen U Methamphetamines Scrn Ur MDMA Scrn (Ecstasy) U Benzodiazepines Scrn Urine Cocaine Screen U Marijuana (THC) Screen Ethyl Alcohol SARS-CoV-2 (PCR) Influenza A (RT-PCR) Influenza B (RT-PCR) RSV (PCR) 08/07/22 08/07/22 08/07/22 15:45 15:45 15:45 WBC RBC Hgb Hct MCV MCH MCHC RDW Plt Count Neut % (Auto) Lymph % (Auto) Whitley % (Auto) Eos % (Auto) Baso % (Auto) Neut # (Auto) Lymph # (Auto) Whitley # (Auto) Eos # (Auto) Baso # (Auto) Sodium Potassium Chloride Carbon Dioxide BUN Creatinine Estimated GFR BUN/Creatinine Ratio Glucose Lactate Calcium Total Bilirubin AST ALT Alkaline Phosphatase Total Creatine Kinase CK-MB (CK-2) CK-MB (CK-2) Rel Index Troponin I Total Protein Albumin Globulin Albumin/Globulin Ratio Procalcitonin 0.58 H Urine Color Urine Appearance Urine pH Ur Specific [place] Urine Protein Urine Glucose (UA) Urine Ketones Urine Occult Blood Urine Nitrate Urine Bilirubin Ur Bilirubin Confirm Urine Urobilinogen Ur Leukocyte Esterase Urine RBC Urine WBC Ur Squamous Epith Cells Urine Bacteria Ur Culture Indicated? U Opiates 300ng/mL cut Ur Oxycodone Screen Urine Methadone Screen Ur Barbiturates Screen U Tricyclic Antidepress Ur Phencyclidine Scrn Ur Amphetamines Screen U Methamphetamines Scrn Ur MDMA Scrn (Ecstasy) U Benzodiazepines Scrn Urine Cocaine Screen U Marijuana (THC) Screen Ethyl Alcohol < 10 SARS-CoV-2 (PCR) Negative Influenza A (RT-PCR) Flu a negative Influenza B (RT-PCR) Flu b negative RSV (PCR) Negative 08/07/22 08/07/22 17:01 17:01 WBC RBC Hgb Hct MCV MCH MCHC RDW Plt Count Neut % (Auto) Lymph % (Auto) Whitley % (Auto) Eos % (Auto) Baso % (Auto) Neut # (Auto) Lymph # (Auto) Whitley # (Auto) Eos # (Auto) Baso # (Auto) Sodium Potassium Chloride Carbon Dioxide BUN Creatinine Estimated GFR BUN/Creatinine Ratio Glucose Lactate Calcium Total Bilirubin AST ALT Alkaline Phosphatase Total Creatine Kinase CK-MB (CK-2) CK-MB (CK-2) Rel Index Troponin I Total Protein Albumin Globulin Albumin/Globulin Ratio Procalcitonin Urine Color Yellow Urine Appearance Clear Urine pH 5.5 Ur Specific [place] 1.025 Urine Protein Trace H Urine Glucose (UA) Negative Urine Ketones 1+ H Urine Occult Blood Negative Urine Nitrate Negative Urine Bilirubin 1+ H Ur Bilirubin Confirm Negative Urine Urobilinogen 0.2 Ur Leukocyte Esterase Negative Urine RBC None seen Urine WBC 0-1/hpf Ur Squamous Epith Cells None seen Urine Bacteria Occasional (0-1) Ur Culture Indicated? Cult not indicated U Opiates 300ng/mL cut Positive H Ur Oxycodone Screen Negative Urine Methadone Screen Negative Ur Barbiturates Screen Negative U Tricyclic Antidepress Negative Ur Phencyclidine Scrn Negative Ur Amphetamines Screen Negative U Methamphetamines Scrn Negative Ur MDMA Scrn (Ecstasy) Negative U Benzodiazepines Scrn Negative Urine Cocaine Screen Negative U Marijuana (THC) Screen Negative Ethyl Alcohol SARS-CoV-2 (PCR) Influenza A (RT-PCR) Influenza B (RT-PCR) RSV (PCR) Assessment & Plan Assessment & Plan narrative: Yazan Anderson is placed into a observation for further evaluation and management of a fall resulting in multiple fractures of his right clavicle, right acetabulum, probable acute compression fracture of L1, bilatateral rib fractures of varying ages, and an incidental finding of a fusiform infrarenal aortic aneurysm, and 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 Probable alcohol withdrawal, acute CIWA protocol Start Librium 25 mg p.o. t.i.d. 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 daily Other independent historians: none Discussion of results, plan of care with independent HCP/other: ED provider Reviewed outside records: Prior admission from 2021 VTE Prophylaxis: Wells risk score 3 X Bilateral SCDs. Pharmacological anticoagulation contraindicated in the setting of multiple fractures and current anemia Patient is placed into observation as his stay is not expected to exceed 2 midnights. FEN: IV fluids: NS at 125 ml/hour, diet: heart healthy, labs: CBC, C/BMP, liver enzymes, Mag, PT/INR Consultants Allison Oakley, Orthopedic Surgery care and involvement in the patient?s care is appreciated. 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 [X] I have utilized all available immediate resources to obtain, update, or review of the patient's current medications VTE Deep Vein Thrombosis/Pulmonary Embolism Present on Admission: Yes MIPS - Admit MIPS - DC The patient has current or prior documentation of left ventricular ejection fraction (LVEF) less than 40%, or moderate or severely depressed left ventricular systolic function.: No COVID-19 COVID-19 status: Negative Result date/Date tested (Pos, Neg/Pending): 08/07/22 Scores Wells' Criteria for PE Clinical signs and symptoms of DVT: No PE is #1 Dx or equally likely: No Heart rate > 100: Yes Immobilization at least 3 days or surg in previous 4 weeks: No History of PE or DVT: Yes Hemoptysis: No Malignancy w/Treatment within 6 months or palliative: No Wells' PE Score total: 3.0 Quality VTE Deep Vein Thrombosis/Pulmonary Embolism Present on Admission: Yes
[2022-08-07] MEDS: SENNOSIDES 8.6 MG TABLET 17.2 MG PO (23:38)
[2022-08-07] MEDS: chlordiazePOXIDE 25 MG CAPSULE PO (23:38)
[2022-08-07 23:55] LABS: Ethanol (ETOH) < 10 mg/dL
[2022-08-08] VITALS (18 sets, daily range): BP systolic 93–157; BP diastolic 55–77; PULSE 81–127; RESP 9–27; TEMP 37.1–37.4; O2SAT 91–100
--- NOTE | 2022-08-08 00:02 | PC.NURSE ---
Admit note: [id number] patient arrived from emergency to room 227. Oriented to room, vital signs taken. Condom catheter placed. Bed alarm active.
--- NOTE | 2022-08-08 00:13 | PC.NURSE ---
Left arm bruising
--- NOTE | 2022-08-08 00:13 | PC.NURSE ---
Right arm and hand bruising
--- NOTE | 2022-08-08 00:14 | PC.NURSE ---
Right clavicle bruising
[2022-08-08] MEDS: HYDROMORPHONE 1 MG INJ IV ×4 (01:48→21:57)
--- NOTE | 2022-08-08 01:58 | PC.NURSE ---
shift engineer: Bladder scanned due to no urinary output. 305 mL present in bladder. Will reassess in two hours.
[2022-08-08] MEDS: OXYCODONE IR 5 MG TABLET PO (02:50)
[2022-08-08] MEDS: hydrOXYzine pamoate 25 MG CAPSULE PO (02:50)
[2022-08-08] MEDS: HYDROMORPHONE 0.5 MG INJ IV ×2 (03:47→07:32)
[2022-08-08 04:32] LABS: Add Manual Diff / Slide Review NO; Basophils Absolute Auto 0 /uL (0-100); Basophils Percent Auto 0.4 % (0-2); Eosinophils Absolute Auto 0 /uL (0-450); Eosinophils Percent Auto 0.1 % (2-4); Hematocrit 21.6 % (41-53); Hemoglobin 7.2 g/dL (13.5-17.5); Lymphocytes Absolute Auto 700 /uL (1100-4500); Lymphocytes Percent Auto 8.6 % (25-40); Mean Corpuscular HGB Conc 33.5 % (30-36); Mean Corpuscular Hemoglobin 32.8 PG (26-34); Mean Corpuscular Volume 97.7 fL (80-100); Monocytes Absolute Auto 700 /uL (0-900); Monocytes Percent Auto 9.6 % (3-14); Neutrophils Absolute Auto 6200 /uL (1500-7000); Neutrophils Percent Auto 81.3 % (50-75); Platelet Count 193 X10^3/uL (150-400); Red Blood Cell Count 2.21 X10^6/uL (4.5-5.9); Red Cell Distribution Width 18.5 % (11.6-14.8); White Blood Cell Count 7.6 X10^3/uL (4.5-11.0)
[2022-08-08 04:40] LABS: Alanine Aminotransferase 46 IU/L (<50); Albumin 2.8 g/dL (3.5-5.0); Albumin Globulin Ratio 1.3 (1.0-2.8); Alkaline Phosphatase 93 U/L (38-126); Aspartate Aminotransferase 58 IU/L (17-59); BUN Creatinine Ratio 34.5 (6-22); Blood Urea Nitrogen 20 mg/dL (9-20); Calcium 7.4 mg/dL (8.4-10.2); Carbon Dioxide 34 mmol/L (22-32); Chloride 98 mmol/L (98-107); Estimated Glomerular Filt Rate > 60 mL/min (>60); Globulin 2.1 g/dL (1.7-4.1); Glucose 127 mg/dL (80-110); HEMOLYSIS < 15 (0-50); Potassium 3.6 mmol/L (3.4-5.1); Sodium 136 mmol/L (137-145); Total Protein 4.9 g/dL (6.3-8.2)
[2022-08-08 04:51] LABS: Magnesium 0.9 mg/dL (1.6-2.3)
[2022-08-08] MEDS: MAGNESIUM SULFATE 2 GM/50 ML PIGGYBACK IV (05:00)
--- NOTE | 2022-08-08 05:07 | PC.NURSE ---
shift leader: Critical lab of magnesium 0.9 called to provider Mark. Order received.
--- NOTE | 2022-08-08 07:14 | P.PN_ITS ---
Subjective Subjective Date Patient Seen: 08/08/22 Interval history: Patient too sleepy to answer questions. Hgb low at 7.2. Unable to work with therapies due to somnolence. Exam Vital Signs (past 8 hours): - 08/07/22 23:46 08/08/22 00:00 08/08/22 00:00 Temperature 98.9 F Pulse Rate 104 H Respiratory Rate 22 Blood Pressure 131/68 Pulse Oximetry 99 Oxygen Delivery Method Nasal Cannula Oxygen Flow Rate 2 Fraction of Inspired Oxygen 08/08/22 00:24 08/08/22 04:00 08/08/22 04:00 Temperature 99.3 F Pulse Rate 101 H 107 H Respiratory Rate 16 Blood Pressure 132/65 Pulse Oximetry 98 96 Oxygen Delivery Method Nasal Cannula Oxygen Flow Rate 2 2 Fraction of Inspired Oxygen 28 Fraction of Inspired Oxygen 28 SaO2/FiO2 Ratio 350 Oxygen Delivery Method Nasal Cannula Oxygen Flow Rate 2 Narrative Exam Narrative: Gen: Alert, oriented, cachectic appearing 80 y.o. male, somnolent HEENT: normocephalic, atraumatic, conjunctiva clear, sclera non-icteric, oral mucosa pink and moist Neck: supple, full ROM, no JVD, trachea is midline Resp: Lungs CTA, non-labored breathing CV: tachy but regular, no murmur or rubs Abd: soft, non-tender, normoactive BTs Skin: Multiple new bruises on right shoulder and both arms, thin and friable Neuro: Alert and oriented X 4 w/no focal deficits. Speech clear and coherent. Extremities: unable to moves lower extremities w/o extreme pain, is normally ambulatory, negative Kim's sign, scattered ecchymoses on arms Psyche: normal mood and affect. Objective Labs 08/08/22 04:12 08/08/22 04:12 Labs: Laboratory Results - last 24 hr 08/07/22 08/07/22 08/07/22 15:45 15:45 15:45 WBC 10.2 RBC 2.67 L Hgb 8.9 L Hct 26.2 L MCV 98.0 MCH 33.1 MCHC 33.8 RDW 19.3 H Plt Count 239 Neut % (Auto) 84.0 H Lymph % (Auto) 5.5 L [place] % (Auto) 10.1 Eos % (Auto) 0.0 L Baso % (Auto) 0.4 Neut # (Auto) 8500 H Lymph # (Auto) 600 L [place] # (Auto) 1000 H Eos # (Auto) 0 Baso # (Auto) 0 Sodium 143 Potassium 4.0 Chloride 101 Carbon Dioxide 29 BUN 24 H Creatinine 0.73 Estimated GFR > 60 BUN/Creatinine Ratio 32.9 H Glucose 115 H Lactate 1.4 Calcium 8.8 Magnesium Total Bilirubin 1.4 H AST 81 H ALT 62 H Alkaline Phosphatase 130 H Total Creatine Kinase 68 CK-MB (CK-2) TNP CK-MB (CK-2) Rel Index TNP Troponin I < 0.012 Total Protein 5.8 L Albumin 3.6 Globulin 2.2 Albumin/Globulin Ratio 1.6 Procalcitonin Urine Color Urine Appearance Urine pH Ur Specific [place] Urine Protein Urine Glucose (UA) Urine Ketones Urine Occult Blood Urine Nitrate Urine Bilirubin Ur Bilirubin Confirm Urine Urobilinogen Ur Leukocyte Esterase Urine RBC Urine WBC Ur Squamous Epith Cells Urine Bacteria Ur Culture Indicated? Nasal Screen MRSA (PCR) U Opiates 300ng/mL cut Ur Oxycodone Screen Urine Methadone Screen Ur Barbiturates Screen U Tricyclic Antidepress Ur Phencyclidine Scrn Ur Amphetamines Screen U Methamphetamines Scrn Ur MDMA Scrn (Ecstasy) U Benzodiazepines Scrn Urine Cocaine Screen U Marijuana (THC) Screen Ethyl Alcohol SARS-CoV-2 (PCR) Influenza A (RT-PCR) Influenza B (RT-PCR) RSV (PCR) 08/07/22 08/07/22 08/07/22 15:45 15:45 15:45 WBC RBC Hgb Hct MCV MCH MCHC RDW Plt Count Neut % (Auto) Lymph % (Auto) [place] % (Auto) Eos % (Auto) Baso % (Auto) Neut # (Auto) Lymph # (Auto) [place] # (Auto) Eos # (Auto) Baso # (Auto) Sodium Potassium Chloride Carbon Dioxide BUN Creatinine Estimated GFR BUN/Creatinine Ratio Glucose Lactate Calcium Magnesium Total Bilirubin AST ALT Alkaline Phosphatase Total Creatine Kinase CK-MB (CK-2) CK-MB (CK-2) Rel Index Troponin I Total Protein Albumin Globulin Albumin/Globulin Ratio Procalcitonin 0.58 H Urine Color Urine Appearance Urine pH Ur Specific [place] Urine Protein Urine Glucose (UA) Urine Ketones Urine Occult Blood Urine Nitrate Urine Bilirubin Ur Bilirubin Confirm Urine Urobilinogen Ur Leukocyte Esterase Urine RBC Urine WBC Ur Squamous Epith Cells Urine Bacteria Ur Culture Indicated? Nasal Screen MRSA (PCR) U Opiates 300ng/mL cut Ur Oxycodone Screen Urine Methadone Screen Ur Barbiturates Screen U Tricyclic Antidepress Ur Phencyclidine Scrn Ur Amphetamines Screen U Methamphetamines Scrn Ur MDMA Scrn (Ecstasy) U Benzodiazepines Scrn Urine Cocaine Screen U Marijuana (THC) Screen Ethyl Alcohol < 10 SARS-CoV-2 (PCR) Negative Influenza A (RT-PCR) Flu a negative Influenza B (RT-PCR) Flu b negative RSV (PCR) Negative 08/07/22 08/07/22 08/07/22 17:01 17:01 22:45 WBC RBC Hgb Hct MCV MCH MCHC RDW Plt Count Neut % (Auto) Lymph % (Auto) [place] % (Auto) Eos % (Auto) Baso % (Auto) Neut # (Auto) Lymph # (Auto) [place] # (Auto) Eos # (Auto) Baso # (Auto) Sodium Potassium Chloride Carbon Dioxide BUN Creatinine Estimated GFR BUN/Creatinine Ratio Glucose Lactate Calcium Magnesium Total Bilirubin AST ALT Alkaline Phosphatase Total Creatine Kinase CK-MB (CK-2) CK-MB (CK-2) Rel Index Troponin I Total Protein Albumin Globulin Albumin/Globulin Ratio Procalcitonin Urine Color Yellow Urine Appearance Clear Urine pH 5.5 Ur Specific [place] 1.025 Urine Protein Trace H Urine Glucose (UA) Negative Urine Ketones 1+ H Urine Occult Blood Negative Urine Nitrate Negative Urine Bilirubin 1+ H Ur Bilirubin Confirm Negative Urine Urobilinogen 0.2 Ur Leukocyte Esterase Negative Urine RBC None seen Urine WBC 0-1/hpf Ur Squamous Epith Cells None seen Urine Bacteria Occasional (0-1) Ur Culture Indicated? Cult not indicated Nasal Screen MRSA (PCR) Negative for mrsa U Opiates 300ng/mL cut Positive H Ur Oxycodone Screen Negative Urine Methadone Screen Negative Ur Barbiturates Screen Negative U Tricyclic Antidepress Negative Ur Phencyclidine Scrn Negative Ur Amphetamines Screen Negative U Methamphetamines Scrn Negative Ur MDMA Scrn (Ecstasy) Negative U Benzodiazepines Scrn Negative Urine Cocaine Screen Negative U Marijuana (THC) Screen Negative Ethyl Alcohol SARS-CoV-2 (PCR) Influenza A (RT-PCR) Influenza B (RT-PCR) RSV (PCR) 08/07/22 08/08/22 08/08/22 23:26 04:12 04:12 WBC 7.6 RBC 2.21 L Hgb 7.2 L Hct 21.6 L MCV 97.7 MCH 32.8 MCHC 33.5 RDW 18.5 H Plt Count 193 Neut % (Auto) 81.3 H Lymph % (Auto) 8.6 L [place] % (Auto) 9.6 Eos % (Auto) 0.1 L Baso % (Auto) 0.4 Neut # (Auto) 6200 Lymph # (Auto) 700 L [place] # (Auto) 700 Eos # (Auto) 0 Baso # (Auto) 0 Sodium 136 L Potassium 3.6 Chloride 98 Carbon Dioxide 34 H BUN 20 Creatinine 0.58 L Estimated GFR > 60 BUN/Creatinine Ratio 34.5 H Glucose 127 H Lactate Calcium 7.4 L Magnesium 0.9 L* Total Bilirubin 1.0 AST 58 ALT 46 Alkaline Phosphatase 93 Total Creatine Kinase CK-MB (CK-2) CK-MB (CK-2) Rel Index Troponin I Total Protein 4.9 L Albumin 2.8 L Globulin 2.1 Albumin/Globulin Ratio 1.3 Procalcitonin Urine Color Urine Appearance Urine pH Ur Specific [place] Urine Protein Urine Glucose (UA) Urine Ketones Urine Occult Blood Urine Nitrate Urine Bilirubin Ur Bilirubin Confirm Urine Urobilinogen Ur Leukocyte Esterase Urine RBC Urine WBC Ur Squamous Epith Cells Urine Bacteria Ur Culture Indicated? Nasal Screen MRSA (PCR) U Opiates 300ng/mL cut Ur Oxycodone Screen Urine Methadone Screen Ur Barbiturates Screen U Tricyclic Antidepress Ur Phencyclidine Scrn Ur Amphetamines Screen U Methamphetamines Scrn Ur MDMA Scrn (Ecstasy) U Benzodiazepines Scrn Urine Cocaine Screen U Marijuana (THC) Screen Ethyl Alcohol < 10 SARS-CoV-2 (PCR) Influenza A (RT-PCR) Influenza B (RT-PCR) RSV (PCR) [facility] Medical History CAD (coronary artery disease) Claudication of both lower extremities COPD (chronic obstructive pulmonary disease) HTN (hypertension) Hyperlipidemia Surgical History History of heart artery stent Social History household members: none Smoking Status: Current every day smoker alcohol intake: current Assessment & Plan Assessment & Plan narrative: Yazan Anderson is placed into a observation for further evaluation and management of a fall resulting in multiple fractures of his right clavicle, right ac etabulum, probable acute compression fracture of L1, bilatateral rib fractures of varying ages, and an incidental finding of a fusiform infrarenal aortic aneurysm, and 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 Probable alcohol withdrawal, acute * CIVT protocol * taper Librium 25 mg p.o. t.i.d. 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 daily Code status: DNR as discussed with the patient who identifies his daughter as his surrogate and POA. Dispo: Pending therapy evals. Will likely need SNF. COVID-19 COVID-19 status: Negative Result date/Date tested (Pos, Neg/Pending): 08/07/22 Time Spent With Patient Critical Care time: I spent a total of [] minutes of critical care time on this patient's care today; this time is exclusive of procedural time. Quality VTE Deep Vein Thrombosis/Pulmonary Embolism Present on Admission: Yes
[2022-08-08] MEDS: LORazepam 2 MG/ML INJ IV (07:31)
[2022-08-08] MEDS: OXYCODONE IR 10 MG TABLET PO (07:32)
[2022-08-08] MEDS: SUCRALFATE 1 GM TABLET PO (07:32)
[2022-08-08] MEDS: MAGNESIUM SULFATE 4 GM/100 ML PIGGYBACK IV (07:46)
[2022-08-08] MEDS: chlordiazePOXIDE 25 MG CAPSULE PO ×2 (08:00→21:44)
--- NOTE | 2022-08-08 08:27 | PM.CN ---
History of Present Illness Consult details Date Patient Seen: 08/08/22 Time Patient Seen: 08:28 Chief complaint: GLF Narrative: 77 y/o male w/ h/o multiple falls, one of which resulted in a left hip fracture which was fixed by Dr Allison Oakley with a dynamic hip screw on 06/21/2021. More recently, he was found down in his home yesterday complaining of right arm and leg pain; he was unsure how he fell, and it's also a bit unclear when he fell. He presented to the ED here yesterday and told the physician that he has a known right clavicle fracture, but unsure when it happened. Xrays confirmed right clavicle fx. Xrays of the hip were negative, but a minimally displaced right obturator ring fracture was seen on CT of the pelvis. CTA of the chest, abdomen, and pelvis demonstrated minimally displaced fractures of the right superior and inferior pubic rami, as well as a comminuted fracture of the right acetabulum without significant displacement. He has chronic compression fractures at T12 and L3, and a T8 compression fracture of uncertain age. Dr Allison Oakley was consulted regarding orthopedic injuries. Pt sleeping soundly, unarousable to voice or palpation along the clavicle. Above information from previous chart notes. Meds Home Medications and Allergies Home Medications Medication Instructions Recorded Confirmed Type aspirin 81 mg tablet,delayed 81 mg PO QDAY ##0 06/23/12 06/21/21 History release lisinopril 10 mg tablet 10 mg PO QDAY ##90 12/13/12 06/21/21 Rx atorvastatin 75 mg PO BEDTIME 06/21/21 06/21/21 History ascorbic acid (vitamin C) 500 mg 500 mg PO BID #60 tabs 06/25/21 Rx tablet (Vitamin C) cholecalciferol (vitamin D3) 10 800 unit PO DAILY #60 tabs 06/25/21 Rx mcg (400 unit) tablet (Vitamin D3) clopidogrel 75 mg tablet (Plavix) 75 mg PO DAILY #30 tabs 06/25/21 Rx cyanocobalamin (vitamin B-12) 100 100 mcg PO DAILY #60 tabs 06/25/21 Rx mcg tablet (Vitamin B-12) docusate sodium 100 mg capsule 100 mg PO BID #60 caps 06/25/21 Rx famotidine 20 mg tablet (Pepcid AC) 40 mg PO BID #60 tabs 06/25/21 Rx folic acid 1 mg tablet 1 mg PO DAILY #60 tabs 06/25/21 Rx oxycodone 5 mg tablet 5 mg PO Q6H PRN Pain, Moderate 06/25/21 Rx (4-6) #10 tabs polyethylene glycol 3350 17 gram 17 gm PO BID #60 ea 06/25/21 Rx oral powder packet vitamin 1 tab PO DAILY #60 tabs 06/25/21 Rx no.76-iron,carbonyl 29 mg iron-folic acid 1 mg tablet (Prenatabs Rx) sennosides 8.6 mg tablet (senna) 17.2 mg PO BEDTIME #60 tabs 06/25/21 Rx sucralfate 1 gram tablet 1 gm PO ACHS #120 tabs 06/25/21 Rx Allergies Allergy/AdvReac Type Severity Reaction Status Date / Time No Known Drug Allergies Allergy Verified 08/07/22 15:12 Exam Vital Signs (past 8 hours): - 08/08/22 04:00 08/08/22 04:00 08/08/22 06:00 Temperature 99.3 F Pulse Rate 107 H 109 H Respiratory Rate 16 17 Blood Pressure 132/65 Pulse Oximetry 96 95 Oxygen Flow Rate 2 08/08/22 07:38 08/08/22 07:38 Temperature Pulse Rate 113 H Respiratory Rate 17 Blood Pressure 153/77 H Pulse Oximetry 97 Oxygen Flow Rate Fraction of Inspired Oxygen 28 SaO2/FiO2 Ratio 350 Oxygen Delivery Method Nasal Cannula Oxygen Flow Rate 2 Narrative Exam Narrative: Pt not arousable, no participation w/ exam. Bruising noted to right shoulder. Objective Labs 08/08/22 04:12 08/08/22 04:12 Labs: Laboratory Results - last 24 hr 08/07/22 08/07/22 08/07/22 15:45 15:45 15:45 WBC 10.2 RBC 2.67 L Hgb 8.9 L Hct 26.2 L MCV 98.0 MCH 33.1 MCHC 33.8 RDW 19.3 H Plt Count 239 Neut % (Auto) 84.0 H Lymph % (Auto) 5.5 L [place] % (Auto) 10.1 Eos % (Auto) 0.0 L Baso % (Auto) 0.4 Neut # (Auto) 8500 H Lymph # (Auto) 600 L [place] # (Auto) 1000 H Eos # (Auto) 0 Baso # (Auto) 0 Sodium 143 Potassium 4.0 Chloride 101 Carbon Dioxide 29 BUN 24 H Creatinine 0.73 Estimated GFR > 60 BUN/Creatinine Ratio 32.9 H Glucose 115 H Lactate 1.4 Calcium 8.8 Magnesium Total Bilirubin 1.4 H AST 81 H ALT 62 H Alkaline Phosphatase 130 H Total Creatine Kinase 68 CK-MB (CK-2) TNP CK-MB (CK-2) Rel Index TNP Troponin I < 0.012 Total Protein 5.8 L Albumin 3.6 Globulin 2.2 Albumin/Globulin Ratio 1.6 Procalcitonin Urine Color Urine Appearance Urine pH Ur Specific [place] Urine Protein Urine Glucose (UA) Urine Ketones Urine Occult Blood Urine Nitrate Urine Bilirubin Ur Bilirubin Confirm Urine Urobilinogen Ur Leukocyte Esterase Urine RBC Urine WBC Ur Squamous Epith Cells Urine Bacteria Ur Culture Indicated? Nasal Screen MRSA (PCR) U Opiates 300ng/mL cut Ur Oxycodone Screen Urine Methadone Screen Ur Barbiturates Screen U Tricyclic Antidepress Ur Phencyclidine Scrn Ur Amphetamines Screen U Methamphetamines Scrn Ur MDMA Scrn (Ecstasy) U Benzodiazepines Scrn Urine Cocaine Screen U Marijuana (THC) Screen Ethyl Alcohol SARS-CoV-2 (PCR) Influenza A (RT-PCR) Influenza B (RT-PCR) RSV (PCR) 08/07/22 08/07/22 08/07/22 15:45 15:45 15:45 WBC RBC Hgb Hct MCV MCH MCHC RDW Plt Count Neut % (Auto) Lymph % (Auto) [place] % (Auto) Eos % (Auto) Baso % (Auto) Neut # (Auto) Lymph # (Auto) [place] # (Auto) Eos # (Auto) Baso # (Auto) Sodium Potassium Chloride Carbon Dioxide BUN Creatinine Estimated GFR BUN/Creatinine Ratio Glucose Lactate Calcium Magnesium Total Bilirubin AST ALT Alkaline Phosphatase Total Creatine Kinase CK-MB (CK-2) CK-MB (CK-2) Rel Index Troponin I Total Protein Albumin Globulin Albumin/Globulin Ratio Procalcitonin 0.58 H Urine Color Urine Appearance Urine pH Ur Specific [place] Urine Protein Urine Glucose (UA) Urine Ketones Urine Occult Blood Urine Nitrate Urine Bilirubin Ur Bilirubin Confirm Urine Urobilinogen Ur Leukocyte Esterase Urine RBC Urine WBC Ur Squamous Epith Cells Urine Bacteria Ur Culture Indicated? Nasal Screen MRSA (PCR) U Opiates 300ng/mL cut Ur Oxycodone Screen Urine Methadone Screen Ur Barbiturates Screen U Tricyclic Antidepress Ur Phencyclidine Scrn Ur Amphetamines Screen U Methamphetamines Scrn Ur MDMA Scrn (Ecstasy) U Benzodiazepines Scrn Urine Cocaine Screen U Marijuana (THC) Screen Ethyl Alcohol < 10 SARS-CoV-2 (PCR) Negative Influenza A (RT-PCR) Flu a negative Influenza B (RT-PCR) Flu b negative RSV (PCR) Negative 08/07/22 08/07/22 08/07/22 17:01 17:01 22:45 WBC RBC Hgb Hct MCV MCH MCHC RDW Plt Count Neut % (Auto) Lymph % (Auto) [place] % (Auto) Eos % (Auto) Baso % (Auto) Neut # (Auto) Lymph # (Auto) [place] # (Auto) Eos # (Auto) Baso # (Auto) Sodium Potassium Chloride Carbon Dioxide BUN Creatinine Estimated GFR BUN/Creatinine Ratio Glucose Lactate Calcium Magnesium Total Bilirubin AST ALT Alkaline Phosphatase Total Creatine Kinase CK-MB (CK-2) CK-MB (CK-2) Rel Index Troponin I Total Protein Albumin Globulin Albumin/Globulin Ratio Procalcitonin Urine Color Yellow Urine Appearance Clear Urine pH 5.5 Ur Specific [place] 1.025 Urine Protein Trace H Urine Glucose (UA) Negative Urine Ketones 1+ H Urine Occult Blood Negative Urine Nitrate Negative Urine Bilirubin 1+ H Ur Bilirubin Confirm Negative Urine Urobilinogen 0.2 Ur Leukocyte Esterase Negative Urine RBC None seen Urine WBC 0-1/hpf Ur Squamous Epith Cells None seen Urine Bacteria Occasional (0-1) Ur Culture Indicated? Cult not indicated Nasal Screen MRSA (PCR) Negative for mrsa U Opiates 300ng/mL cut Positive H Ur Oxycodone Screen Negative Urine Methadone Screen Negative Ur Barbiturates Screen Negative U Tricyclic Antidepress Negative Ur Phencyclidine Scrn Negative Ur Amphetamines Screen Negative U Methamphetamines Scrn Negative Ur MDMA Scrn (Ecstasy) Negative U Benzodiazepines Scrn Negative Urine Cocaine Screen Negative U Marijuana (THC) Screen Negative Ethyl Alcohol SARS-CoV-2 (PCR) Influenza A (RT-PCR) Influenza B (RT-PCR) RSV (PCR) 08/07/22 08/08/22 08/08/22 23:26 04:12 04:12 WBC 7.6 RBC 2.21 L Hgb 7.2 L Hct 21.6 L MCV 97.7 MCH 32.8 MCHC 33.5 RDW 18.5 H Plt Count 193 Neut % (Auto) 81.3 H Lymph % (Auto) 8.6 L [place] % (Auto) 9.6 Eos % (Auto) 0.1 L Baso % (Auto) 0.4 Neut # (Auto) 6200 Lymph # (Auto) 700 L [place] # (Auto) 700 Eos # (Auto) 0 Baso # (Auto) 0 Sodium 136 L Potassium 3.6 Chloride 98 Carbon Dioxide 34 H BUN 20 Creatinine 0.58 L Estimated GFR > 60 BUN/Creatinine Ratio 34.5 H Glucose 127 H Lactate Calcium 7.4 L Magnesium 0.9 L* Total Bilirubin 1.0 AST 58 ALT 46 Alkaline Phosphatase 93 Total Creatine Kinase CK-MB (CK-2) CK-MB (CK-2) Rel Index Troponin I Total Protein 4.9 L Albumin 2.8 L Globulin 2.1 Albumin/Globulin Ratio 1.3 Procalcitonin Urine Color Urine Appearance Urine pH Ur Specific [place] Urine Protein Urine Glucose (UA) Urine Ketones Urine Occult Blood Urine Nitrate Urine Bilirubin Ur Bilirubin Confirm Urine Urobilinogen Ur Leukocyte Esterase Urine RBC Urine WBC Ur Squamous Epith Cells Urine Bacteria Ur Culture Indicated? Nasal Screen MRSA (PCR) U Opiates 300ng/mL cut Ur Oxycodone Screen Urine Methadone Screen Ur Barbiturates Screen U Tricyclic Antidepress Ur Phencyclidine Scrn Ur Amphetamines Screen U Methamphetamines Scrn Ur MDMA Scrn (Ecstasy) U Benzodiazepines Scrn Urine Cocaine Screen U Marijuana (THC) Screen Ethyl Alcohol < 10 SARS-CoV-2 (PCR) Influenza A (RT-PCR) Influenza B (RT-PCR) RSV (PCR) [facility] Medical History CAD (coronary artery disease) Claudication of both lower extremities COPD (chronic obstructive pulmonary disease) HTN (hypertension) Hyperlipidemia Surgical History History of heart artery stent Social History household members: none Tobacco & Substance Use Smoking Status: Current every day smoker alcohol intake: current Assessment & Plan Assessment and plan (1) Acetabulum fracture, right: Status: Acute Plan: Imaging reviewed by Dr Oakley. No surgical intervention needed at this time. Pt may be weight-bearing up to 50 pounds on right leg. May transfer OOB with assistance. (2) Closed pelvic fracture: Status: Acute Plan: Imaging reviewed by Dr Oakley. No surgical intervention needed at this time. (3) Clavicle fracture: Status: Acute Plan: Imaging reviewed by Dr Oakley. No surgical intervention needed at this time. Sling to right arm for comfort when OOB. Time Spent With Patient Critical Care time: I spent a total of [] minutes of critical care time on this patient's care today; this time is exclusive of procedural time.
[2022-08-08] MEDS: THIAMINE 100 MG in SODIUM CHLORIDE 0.9% 100 ML 404 MG IV (09:24)
--- NOTE | 2022-08-08 09:27 | OT.IPNOTE ---
Per nursgin aid pt prior having lots of pain and now medicated and will probably be asleep for awhile. Spoke to hospitalist as pt's H and H low 7.2 Hgb, 21.6 Hct okay to hold therapy eval this morning.
--- NOTE | 2022-08-08 09:34 | CM.DANOTE ---
Initial DCP Assessment Note Information below gleaned from chart and RN Nahid, patient actively withdrawing from ETOH (exact use unknown), medicated, and now sleeping soundly. Patient's listed contact/daughter Gia is in [place] per RN. Pt is a 77 yo male, resident of [place] arrives via EMS after a GLF with subsequent fractures, all non-operable w/ multiple prior injuries throughout the body, some post surgical repair, sustained after prior falls PCP:Jayleen Soto Payer: [facility]/ [facility] Patient will benefit from therapy evals to assist in dispo planning; when medically appropriate. Anticipate patient will need SNF upon discharge and will plan to discuss with patient. [facility] CM team will plan to follow closely for coordination of the safest plan available to patient BRENDA Borges Discharge Planning/Care Management CM Discharge Assessment Start: 08/08/22 09:26 Freq: Status: Active Protocol: Document 08/08/22 09:26 ALEXA (Rec: 08/08/22 09:33 [id number]) Discharge Planning Assessment Assigned Pharmacy Technician Instructor BRENDA Patel DPOA/Assigned Designee Name Gia Crystal, daughter ( currently in [place]) Contact Information [phone] Advance Directives? Yes Advance Directives on File No History Provided By Medical Record Prior Living Arrangements House Household Members none Type of transporation used prior to Drives own vehicle admit Independent with ADL's TBD Is patient alert and oriented? TBD Patient/Family Preference [facility] Facility Barriers to Discharge Yes Comment Patient's body is full of injuries and fractures from prior falls and most recent GLF. Patient lives alone. He would benefit from therapy evals when medically appropriate and likely will need SNF level of care and rehab if agreeable. Patient has been to [facility] approx a year ago after GLF and subsequent femur fx/repair Discharge Plan [facility] Facility Transportation Arrangement TBD Additional Comment Hx at [facility] Jun 2021
--- NOTE | 2022-08-08 10:32 | PT-IP ANOTE ---
PT eval received and EMR reviewed. Pt s/p GLF and per chart seems to be having alcohold withdrawal. CIWA score of 11. pt also sustained a R pelvic fx and per ortho: PWB of 50# ma on RLE; R clavicle fracture and sling for comfort but no weight bearing info on EMR. talked with hospitalist to inform regarding concerns of Hgb of 7.2 and Hct of 21.6 and CIWA score of 11 and also needs clarification for RUE weight bearing. hospitalist stated hold for now and to check back on pt later today.
--- NOTE | 2022-08-08 14:55 | PT-IP ANOTE ---
checked with nurse and stated that pt is not appropriate for PT at this time. pt is in for alcohol withdrawal and was medicated this morning and pt is lethargic. obtained weight bearing clarification for RUE with hospitalist and stated that per Dr. Oakley, pt is 10# weight bearing on RUE
[2022-08-08 15:19] LABS: HEMOLYSIS < 15 (0-50); Magnesium 2.4 mg/dL (1.6-2.3); Potassium 3.5 mmol/L (3.4-5.1)
[2022-08-08] MEDS: SODIUM CHLORIDE 0.9% 1,000 ML 125 ML IV (15:49)
--- NOTE | 2022-08-08 17:33 | DIET.PN1 ---
Addendum entered by Gretchen Teixeira 08/08/22 17:44: sending high kcal ONS BID Original Note: Dietary Progress Note Assessment: Tried to see pt again this afternoon. He is unable to participate in nutrition assessment due to somnolence. Per EMR wts, he has lost 15.5% or 23# (unclear of timeline). Wt hx: 08/07/22: 56.699kg 05/2021: 67.132kg With ETOH withdrawal and physical signs of wasting he qualifies for malnutrition. NFPE (physical appearance): moderate to severe wasting of temporal area, clavicle, with predominant acromion process and boxed shoulders (severe) BMI low for age (severe) Ht: 175.26 cm Wt: 56.699 kg BMI: 18.4 Last BM: 08/05/22 (08/07/22 23:20) MNA: Liborio Score: 20 Diet: 08/07/22 Breakfast Heart Healthy Diet Diet Modifications: Nutrition Percent Meal Consumed Pt asleep 08/08/22 14:47 Percent Meal Consumed pt not alert enough to eat, 08/08/22 09:28 sleepy Labs: RBC 2.21 X10^6/uL (4.5-5.9) L 08/08/22 04:12 Hgb 7.2 g/dL (13.5-17.5) L 08/08/22 04:12 Hct 21.6 % (41-53) L 08/08/22 04:12 Creatinine 0.58 mg/dL (0.66-1.25) L 08/08/22 04:12 Lactate 1.4 mmol/L (0.7-2.1) 08/07/22 15:45 Nutrition Diagnosis: Severe acute protein calorie malnutrition r/t predicted inadequate PO and excessive ETOH aeb probable ETOH withdrawal, physical signs of wasting, and BMI low for age of 19.4. -The patient is at much higher risk for medical and surgical complications because of his malnutrition.? This increases the difficulty and complexity of medical and surgical interventions and increases the chances of poor outcomes such as morbidity and mortality. Interventions: ONS BID to support kcal and pro needs EER: 1322-1545 kcal (35-38kcla/kg per BMI) 102-113g (1.8-2g/kg per PCM) Monitoring/Evaluations: PO, weights, ONS tolerance Electronically Signed by: Gretchen Teixeira 08/08/22 17:33 Clinical Dietitian [address] [address]
--- NOTE | 2022-08-08 22:59 | PC.NURSE ---
lithographic photographer: Patient exhibited increased work of breathing with use of accessory muscles and elevated HR, positive JVD. Provider Michelle Flores HAT FORMER notified. IV fluid decreased and medicated for pain. Good result.
[2022-08-09] VITALS (22 sets, daily range): BP systolic 94–128; BP diastolic 52–74; PULSE 92–113; RESP 13–24; TEMP 36.9–37.3; O2SAT 90–99
[2022-08-09] MEDS: HYDROMORPHONE 0.5 MG INJ IV ×4 (01:48→23:56)
[2022-08-09] MEDS: SODIUM CHLORIDE 0.9% 1,000 ML 50 ML IV (02:02)
[2022-08-09 06:00] LABS: Alanine Aminotransferase 40 IU/L (<50); Albumin 2.6 g/dL (3.5-5.0); Albumin Globulin Ratio 1.2 (1.0-2.8); Alkaline Phosphatase 92 U/L (38-126); Aspartate Aminotransferase 57 IU/L (17-59); BUN Creatinine Ratio 21.6 (6-22); Bilirubin Total 1.1 mg/dL (0.2-1.3); Blood Urea Nitrogen 11 mg/dL (9-20); Calcium 7.7 mg/dL (8.4-10.2); Carbon Dioxide 33 mmol/L (22-32); Chloride 102 mmol/L (98-107); Estimated Glomerular Filt Rate > 60 mL/min (>60); Globulin 2.1 g/dL (1.7-4.1); Glucose 98 mg/dL (80-110); HEMOLYSIS < 15 (0-50); Magnesium 1.8 mg/dL (1.6-2.3); Potassium 3.3 mmol/L (3.4-5.1); Sodium 138 mmol/L (137-145); Total Protein 4.7 g/dL (6.3-8.2)
[2022-08-09 06:03] LABS: Basophils Absolute Auto 0 /uL (0-100); Basophils Percent Auto 0.6 % (0-2); Eosinophils Absolute Auto 0 /uL (0-450); Eosinophils Percent Auto 0.4 % (2-4); Lymphocytes Absolute Auto 600 /uL (1100-4500); Lymphocytes Percent Auto 9.5 % (25-40); Mean Corpuscular HGB Conc 33.8 % (30-36); Mean Corpuscular Hemoglobin 33.3 PG (26-34); Mean Corpuscular Volume 98.3 fL (80-100); Monocytes Absolute Auto 400 /uL (0-900); Monocytes Percent Auto 7.1 % (3-14); Neutrophils Absolute Auto 5000 /uL (1500-7000); Neutrophils Percent Auto 82.4 % (50-75); Platelet Count 151 X10^3/uL (150-400); Red Blood Cell Count 2.05 X10^6/uL (4.5-5.9); Red Cell Distribution Width 18.6 % (11.6-14.8); White Blood Cell Count 6.1 X10^3/uL (4.5-11.0)
[2022-08-09 06:14] LABS: Hemoglobin 6.8 g/dL (13.5-17.5)
[2022-08-09 06:15] LABS: Add Manual Diff / Slide Review SLIDE REVIEW; Hematocrit 20.1 % (41-53)
[2022-08-09 07:28] LABS: Hypochromasia 1+
[2022-08-09 07:29] LABS: Anisocytosis 2+
--- NOTE | 2022-08-09 08:15 | P.PN_ITS ---
Subjective Subjective Date Patient Seen: 08/09/22 Interval history: Patient is not oriented to place or time. He cannot give any meaningful history and dozes off. Hgb 6.8 today and getting 1 unit PRBC. Exam Vital Signs (past 8 hours): - 08/09/22 02:00 08/09/22 04:00 08/09/22 04:00 Pulse Rate 112 H 113 H Respiratory Rate 14 24 Blood Pressure 125/63 Pulse Oximetry 96 96 08/09/22 06:00 Pulse Rate 111 H Respiratory Rate 19 Blood Pressure Pulse Oximetry 96 Fraction of Inspired Oxygen 28 SaO2/FiO2 Ratio 350 Oxygen Delivery Method Nasal Cannula Oxygen Flow Rate 2 Narrative Exam Narrative: Gen: Alert, oriented x1, cachectic appearing 80 y.o. male, somnolent HEENT: normocephalic, atraumatic, conjunctiva clear, sclera non-icteric, oral mucosa pink and moist Neck: supple, full ROM, no JVD, trachea is midline Resp: Lungs CTA, non-labored breathing CV: tachy but regular, no murmur or rubs Abd: soft, non-tender, normoactive BTs Skin: Multiple new bruises on right shoulder and both arms, thin and friable Neuro: Alert and oriented X 4 w/no focal deficits. Speech clear and coherent. Extremities: unable to moves lower extremities w/o extreme pain, is normally ambulatory, negative Kim's sign, scattered ecchymoses on arms Psyche: normal mood and affect. Objective Labs 08/09/22 05:00 08/09/22 05:00 Labs: Laboratory Results - last 24 hr 08/08/22 08/09/22 08/09/22 15:00 05:00 05:00 WBC 6.1 RBC 2.05 L Hgb 6.8 L* Hct 20.1 L* MCV 98.3 MCH 33.3 MCHC 33.8 RDW 18.6 H Plt Count 151 Neut % (Auto) 82.4 H Lymph % (Auto) 9.5 L [place] % (Auto) 7.1 Eos % (Auto) 0.4 L Baso % (Auto) 0.6 Neut # (Auto) 5000 Lymph # (Auto) 600 L [place] # (Auto) 400 Eos # (Auto) 0 Baso # (Auto) 0 RBC Morphology Not Reportable Hypochromasia 1+ H Anisocytosis 2+ H Sodium 138 Potassium 3.5 3.3 L Chloride 102 Carbon Dioxide 33 H BUN 11 Creatinine 0.51 L Estimated GFR > 60 BUN/Creatinine Ratio 21.6 Glucose 98 Calcium 7.7 L Magnesium 2.4 H 1.8 Total Bilirubin 1.1 AST 57 ALT 40 Alkaline Phosphatase 92 Total Protein 4.7 L Albumin 2.6 L Globulin 2.1 Albumin/Globulin Ratio 1.2 [facility] Medical History CAD (coronary artery disease) Claudication of both lower extremities COPD (chronic obstructive pulmonary disease) HTN (hypertension) Hyperlipidemia Surgical History History of heart artery stent Social History household members: none Smoking Status: Current every day smoker alcohol intake: current Assessment & Plan Assessment & Plan narrative: Yazan Anderson is placed into a observation for further evaluation and management of a fall resulting in multiple fractures of his right clavicle, right acetabulu m, probable acute compression fracture of L1, bilatateral rib fractures of varying ages, and an incidental finding of a fusiform infrarenal aortic aneurysm, and 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 Probable alcohol withdrawal, acute * CIWA protocol * taper Librium 25 mg p.o. t.i.d. to BID * Seizure precautions * Multivitamin, folic acid and thiamine daily Probable dementia * alert but only oriented x1 * SLUMS eval by OT * may need placement Normocytic anemia * Hgb 7.2 down from 8.9 on admission, no evidence of bleeding * transfuse at <7 Hgb * Hgb 6.8 on 08/09, s/p 1 unit PRBC * monitor CBC daily * if dark stools check guiaic Severe hypomagnesemia, resolved * mag 0.9 on admission * s/p 6g IV mag * now 2.4 * monitor and replete Fall resulting in multiple site trauma and fractures, acute, present on admission * ED consulted with Orthopedic surgery who believes his fractures are n onoperative however they will follow on this case * PT/OT evals 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 daily Code status: DNR as discussed with the patient who identifies his daughter as his surrogate and POA. Dispo: Pending therapy evals. Will likely need SNF vs placement. COVID-19 COVID-19 status: Negative Result date/Date tested (Pos, Neg/Pending): 08/07/22 Time Spent With Patient Critical Care time: I spent a total of [] minutes of critical care time on this patient's care today; this time is exclusive of procedural time. Quality VTE Deep Vein Thrombosis/Pulmonary Embolism Present on Admission: Yes
[2022-08-09] MEDS: POTASSIUM CHLORIDE IN WATER 10 MEQ/100 ML PIGGYBACK 100 MEQ IV ×4 (08:33→11:35)
[2022-08-09] MEDS: FUROSEMIDE 20 MG/2 ML VIAL IV (08:33)
[2022-08-09] MEDS: MULTIVITAMIN 1 TABLET 1 TAB PO (08:41)
[2022-08-09] MEDS: chlordiazePOXIDE 25 MG CAPSULE PO ×2 (08:41→20:20)
[2022-08-09] MEDS: FOLIC ACID 1 MG TABLET PO (08:41)
[2022-08-09] MEDS: THIAMINE 100 MG TABLET PO (08:41)
[2022-08-09] MEDS: SUCRALFATE 1 GM TABLET PO ×4 (08:41→20:20)
[2022-08-09] MEDS: ACETAMINOPHEN 325 MG TABLET 650 MG PO ×2 (08:41→15:10)
[2022-08-09] MEDS: OXYCODONE IR 5 MG TABLET PO ×4 (08:57→18:07)
[2022-08-09] MEDS: polyethylene glycoL 3350 17 GM POWD.PACK PO ×2 (08:58→20:20)
--- NOTE | 2022-08-09 10:32 | PT-IP ANOTE ---
reviewed EMR and pt has Hgb of 6.8 and Hct of 20.1. pt is pending transfusion and hold for PT eval at this time pending repeat H&H result.
--- NOTE | 2022-08-09 11:05 | P.PN_ITS ---
Subjective Subjective Interval history: He is resting comfortably in bed. He notes a little bit of right arm and right hip pain. Exam Vital Signs (past 8 hours): - 08/09/22 04:00 08/09/22 04:00 08/09/22 06:00 Temperature Pulse Rate 113 H 111 H Respiratory Rate 24 19 Blood Pressure 125/63 Pulse Oximetry 96 96 Oxygen Delivery Method 08/09/22 07:00 08/09/22 11:00 Temperature 98.5 F Pulse Rate 107 H Respiratory Rate 18 Blood Pressure 112/64 Pulse Oximetry Oxygen Delivery Method Nasal Cannula Fraction of Inspired Oxygen 28 SaO2/FiO2 Ratio 350 Oxygen Delivery Method Nasal Cannula Oxygen Flow Rate 2 Narrative Exam Narrative: There is obvious bruising over his right shoulder he is able to move his fingers wrist and hand there is minimal pain with gentle range of motion in the hand wrist and elbow slight deformity of the clavicle, skin intact Moderate pain with gentle range of motion in the right hip, able to fire his toe flexors and extensors calves are soft Objective Labs 08/09/22 05:00 08/09/22 05:00 Labs: Laboratory Results - last 24 hr 08/08/22 08/09/22 08/09/22 15:00 05:00 05:00 WBC 6.1 RBC 2.05 L Hgb 6.8 L* Hct 20.1 L* MCV 98.3 MCH 33.3 MCHC 33.8 RDW 18.6 H Plt Count 151 Neut % (Auto) 82.4 H Lymph % (Auto) 9.5 L [place] % (Auto) 7.1 Eos % (Auto) 0.4 L Baso % (Auto) 0.6 Neut # (Auto) 5000 Lymph # (Auto) 600 L [place] # (Auto) 400 Eos # (Auto) 0 Baso # (Auto) 0 RBC Morphology Not Reportable Hypochromasia 1+ H Anisocytosis 2+ H Sodium 138 Potassium 3.5 3.3 L Chloride 102 Carbon Dioxide 33 H BUN 11 Creatinine 0.51 L Estimated GFR > 60 BUN/Creatinine Ratio 21.6 Glucose 98 Calcium 7.7 L Magnesium 2.4 H 1.8 Total Bilirubin 1.1 AST 57 ALT 40 Alkaline Phosphatase 92 Total Protein 4.7 L Albumin 2.6 L Globulin 2.1 Albumin/Globulin Ratio 1.2 Blood Type Antibody Screen Crossmatch 08/09/22 07:03 WBC RBC Hgb Hct MCV MCH MCHC RDW Plt Count Neut % (Auto) Lymph % (Auto) [place] % (Auto) Eos % (Auto) Baso % (Auto) Neut # (Auto) Lymph # (Auto) [place] # (Auto) Eos # (Auto) Baso # (Auto) RBC Morphology Hypochromasia Anisocytosis Sodium Potassium Chloride Carbon Dioxide BUN Creatinine Estimated GFR BUN/Creatinine Ratio Glucose Calcium Magnesium Total Bilirubin AST ALT Alkaline Phosphatase Total Protein Albumin Globulin Albumin/Globulin Ratio Blood Type O Positive Antibody Screen Negative Crossmatch See Detail [facility] Medical History CAD (coronary artery disease) Claudication of both lower extremities COPD (chronic obstructive pulmonary disease) HTN (hypertension) Hyperlipidemia Surgical History History of heart artery stent Social History household members: none Smoking Status: Current every day smoker alcohol intake: current Assessment & Plan Assessment and plan (1) Closed fracture of left hip: Status: Acute (2) Acetabulum fracture, right: Status: Acute (3) Closed pelvic fracture: Status: Acute (4) Clavicle fracture: Status: Acute Plan He has a comminuted right clavicle fracture without significant displacement. It should heal with conservative treatment. He can have a sling when he is up ambulating it is okay for him to have his hand and wrist free and elbow free supported in a pillow when he is in bed. He can be weight-bearing at most of about 10 lb in the right upper extremity. He has a pelvic fracture with a crack into his right acetabulum. He can be weight-bearing 50 lb on the right lower extremity. He also has anemia which is likely some component of acute blood loss associated with this fractures as well as some component of chronic anemia. He has multiple medical problems. I anticipate that he will require discharge to rehab when his medical conditions have adequately been stabilized. Orthopedically he likely will have difficulty with mobilization. Time Spent With Patient Critical Care time: I spent a total of [] minutes of critical care time on this patient's care today; this time is exclusive of procedural time. Quality VTE Deep Vein Thrombosis/Pulmonary Embolism Present on Admission: Yes
--- NOTE | 2022-08-09 11:40 | CM.DPNOTE ---
Addendum entered by BRENDA Dillard 08/09/22 13:36: ADD: Friend Ciro Howell in room this afternoon, introduced self and role. Ciro states he is patient's only friend and contact, they have been friends for over 30 years. Daughter not expected back in the country for 2 months and contact with her has been sporadic. Ciro cell P [phone] work P [phone], spouse Ariadna Howell cell P [phone]. Ciro feels patient may not be safe for return home and hopeful that patient will be able to discharge to a SNF rehab facility from here. Explained CM team hopeful for same and plan to discuss options with patient when he is more alert. Friend Ciro states appreciation JW Original Note: DCP Note CM team following closely. Attempted bedside assessment again today but patient remains lethargic, awake momentarily and then falls back asleep. Daughter Gia is in [place], attempted cell phone but call did not go through. Anticipate patient will not be cleared by therapy team to return home alone, may need SNF. Prior CM notes from approx a year ago indicate patient was agreeable to SNF referrals after hip reapir Patient is not medically stable enough for therapy evals and is not A+O, cannot review PLOF or dispo options with patient or daughter currently and no other contact listed CM team will continue to follow closely for coordination of DCP. PASRR completed in anticipation of SNF [facility]
--- NOTE | 2022-08-09 13:06 | PT-IP ANOTE ---
pt continues to be on hold pending post transfusion H&H result
[2022-08-09] MEDS: FUROSEMIDE 40 MG/4 ML VIAL 20 MG IV (13:34)
[2022-08-09 15:56] LABS: Hematocrit 23.4 % (41-53)
[2022-08-09] MEDS: SENNOSIDES 8.6 MG TABLET 17.2 MG PO (20:20)
[2022-08-10] VITALS (12 sets, daily range): BP systolic 96–142; BP diastolic 51–80; PULSE 97–109; RESP 14–28; TEMP 36.8–37.3; O2SAT 92–98
[2022-08-10] MEDS: LORazepam 2 MG/ML INJ IV (00:35)
[2022-08-10] MEDS: OXYCODONE IR 5 MG TABLET PO ×3 (04:40→13:38)
[2022-08-10 05:43] LABS: Basophils Absolute Auto 0 /uL (0-100); Basophils Percent Auto 0.6 % (0-2); Eosinophils Absolute Auto 100 /uL (0-450); Eosinophils Percent Auto 1.7 % (2-4); Hematocrit 23.5 % (41-53); Hemoglobin 7.9 g/dL (13.5-17.5); Lymphocytes Absolute Auto 600 /uL (1100-4500); Lymphocytes Percent Auto 11.6 % (25-40); Mean Corpuscular HGB Conc 33.5 % (30-36); Mean Corpuscular Volume 92.5 fL (80-100); Monocytes Absolute Auto 400 /uL (0-900); Monocytes Percent Auto 7.4 % (3-14); Neutrophils Absolute Auto 4300 /uL (1500-7000); Neutrophils Percent Auto 78.7 % (50-75); Platelet Count 171 X10^3/uL (150-400); Red Blood Cell Count 2.54 X10^6/uL (4.5-5.9); Red Cell Distribution Width 23.8 % (11.6-14.8); White Blood Cell Count 5.5 X10^3/uL (4.5-11.0)
[2022-08-10 05:48] LABS: BUN Creatinine Ratio 17.3 (6-22); Blood Urea Nitrogen 9 mg/dL (9-20); Calcium 8.3 mg/dL (8.4-10.2); Carbon Dioxide 39 mmol/L (22-32); Chloride 95 mmol/L (98-107); Estimated Glomerular Filt Rate > 60 mL/min (>60); Glucose 95 mg/dL (80-110); HEMOLYSIS < 15 (0-50); Potassium 3.3 mmol/L (3.4-5.1); Sodium 136 mmol/L (137-145)
[2022-08-10 05:49] LABS: Add Manual Diff / Slide Review SLIDE REVIEW; Magnesium 1.3 mg/dL (1.6-2.3)
[2022-08-10] MEDS: BENZONATATE 100 MG CAPSULE PO (06:06)
[2022-08-10 07:23] LABS: Anisocytosis 2+
--- NOTE | 2022-08-10 08:58 | P.PN_ITS ---
Subjective Subjective Date Patient Seen: 08/10/22 Interval history: Yazan Anderson is a 77 y.o. 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 He has had a prior clavicle fracture and apparently was unable to get up or bear weight due to severe right hip pain. Cu rrently he states his pain is a 10/10, particularly when moved, denies headache, nausea or vomiting. He continues to be unable to recall why or how he fell. Patient is not oriented to place or time. Patient says he is in pain especially when he moves. Pain is right shoulder and pelvis area. No other history obtained, patient very confused. Exam Vital Signs (past 8 hours): - 08/10/22 01:20 08/10/22 04:14 08/10/22 08:36 Temperature 98.6 F Pulse Rate 101 H 109 H Respiratory Rate 14 28 H Blood Pressure 96/51 L 141/80 H Pulse Oximetry 93 97 Oxygen Delivery Method Nasal Cannula Oxygen Flow Rate 1 Fraction of Inspired Oxygen 28 SaO2/FiO2 Ratio 350 Oxygen Delivery Method Nasal Cannula Oxygen Flow Rate 1 Narrative Exam Narrative: Gen: Alert, oriented to person only, cachectic appearing male, appears uncomfortable HEENT: normocephalic, atraumatic, conjunctiva clear, sclera non-icteric, oral mucosa pink and moist Neck: supple, full ROM, no JVD, trachea is midline Resp: Lungs CTA, non-labored breathing CV: tachy but regular, no murmur or rubs Abd: soft, non-tender, normoactive BTs Skin: Multiple new bruises on right shoulder and both arms, thin and friable Neuro: Alert and oriented to person w/no focal deficits. Speech clear and coherent. Extremities: unable to moves lower extremities w/o extreme pain, is normally ambulatory, negative Kim's sign, significant pain while trying to move right shoulder Psyche: appears to be normal mood and affect. Objective Labs 08/10/22 04:56 08/10/22 04:56 Labs: Laboratory Results - last 24 hr 08/09/22 08/09/22 08/10/22 07:03 15:40 04:56 WBC RBC Hgb 8.0 L Hct 23.4 L MCV MCH MCHC RDW Plt Count Neut % (Auto) Lymph % (Auto) [place] % (Auto) Eos % (Auto) Baso % (Auto) Neut # (Auto) Lymph # (Auto) [place] # (Auto) Eos # (Auto) Baso # (Auto) RBC Morphology Anisocytosis Sodium Potassium Chloride Carbon Dioxide BUN Creatinine Estimated GFR BUN/Creatinine Ratio Glucose Calcium Magnesium 1.3 L Blood Type O Positive Antibody Screen Negative Crossmatch See Detail 08/10/22 08/10/22 04:56 04:56 WBC 5.5 RBC 2.54 L Hgb 7.9 L Hct 23.5 L MCV 92.5 D MCH 31.0 MCHC 33.5 RDW 23.8 H Plt Count 171 Neut % (Auto) 78.7 H Lymph % (Auto) 11.6 L [place] % (Auto) 7.4 Eos % (Auto) 1.7 L Baso % (Auto) 0.6 Neut # (Auto) 4300 Lymph # (Auto) 600 L [place] # (Auto) 400 Eos # (Auto) 100 Baso # (Auto) 0 RBC Morphology See below Anisocytosis 2+ H Sodium 136 L Potassium 3.3 L Chloride 95 L Carbon Dioxide 39 H BUN 9 Creatinine 0.52 L Estimated GFR > 60 BUN/Creatinine Ratio 17.3 Glucose 95 Calcium 8.3 L Magnesium Blood Type Antibody Screen Crossmatch [facility] Medical History CAD (coronary artery disease) Claudication of both lower extremities COPD (chronic obstructive pulmonary disease) HTN (hypertension) Hyperlipidemia Surgical History History of heart artery stent Social History household members: none Smoking Status: Current every day smoker alcohol intake: current Assessment & Plan Assessment & Plan narrative: Yaazn Anderson was placed into a observation initially transitioned to inpatient for management of a fall resulting in multiple fractures of his right clavicle, right acetabulum, probable acute compression fracture of L1, bilatateral rib fra ctures of varying ages, right shoulder significant contusions and an incidental finding of a fusiform infrarenal aortic aneurysm, and 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 1) Probable alcohol withdrawal, acute * CIWA protocol * Librium 25 mg p.o. t.i.d. 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 daily 7) HTN - reasonably controlled, continue Lisinopril 10 mg daily 8) low magnesium, low potassium and low calcium, replace and follow Consultants Allison Oakley, Orthopedic Surgery care and involvement in the patient?s care is appreciated. Dispo: unknown at this time Code status: DNR was discussed with the patient on admission and confirmed by me, who identifies his daughter? as? his surrogate and POA. VTE Deep Vein Thrombosis/Pulmonary Embolism Present on Admission: Yes, being held currently. MIPS - DC The patient has current or prior documentation of left ventricular ejection fraction (LVEF) less than 40%, or moderate or severely depressed left ventricular systolic function.: No COVID-19 COVID-19 status: Negative Result date/Date tested (Pos, Neg/Pending): 08/07/22 Time Spent With Patient Critical Care time: I spent a total of [] minutes of critical care time on this patient's care today; this time is exclusive of procedural time. Quality VTE Deep Vein Thrombosis/Pulmonary Embolism Present on Admission: Yes
[2022-08-10] MEDS: chlordiazePOXIDE 25 MG CAPSULE PO (09:44)
[2022-08-10] MEDS: SUCRALFATE 1 GM TABLET PO ×2 (09:44→13:38)
[2022-08-10] MEDS: MAGNESIUM CHLORIDE 64 MG TABLET 128 MG PO (09:44)
[2022-08-10] MEDS: POTASSIUM CHLORIDE 20 MEQ TAB 40 MEQ PO ×2 (09:44→13:42)
[2022-08-10] MEDS: MULTIVITAMIN 1 TABLET 1 TAB PO (09:45)
[2022-08-10] MEDS: FOLIC ACID 1 MG TABLET PO (09:45)
[2022-08-10] MEDS: lisinopriL 10 MG TABLET PO (09:45)
[2022-08-10] MEDS: polyethylene glycoL 3350 17 GM POWD.PACK PO (09:46)
[2022-08-10] MEDS: THIAMINE 100 MG TABLET PO (09:46)
[2022-08-10] MEDS: CALCIUM CARBONATE 500 MG TAB PO (09:57)
[2022-08-10] MEDS: HYDROMORPHONE 0.5 MG INJ IV ×3 (15:24→22:02)
--- NOTE | 2022-08-10 16:04 | PC.NURSE ---
Transfer Note Care of patient handed off to Heriberto TANG, all questions/concerns addressed. Assisted w/ patient transfer to room 207.
--- NOTE | 2022-08-10 17:17 | PC.NURSE ---
Day shift: Pt did not want his 2 medications at approx 1630. Asked him and then offered him some water and he shook his head no and closed his moth while looking this clinical writer in the eyes. It was explained to him that the medications are to help him get better and out of the hospital but he still refused after the explanation He is sleeping now. Bed alrm is on. Call light in reach and the TV is on. TV on seems to help with relaxing. Will continue with plan of care. Door to room is open for line of site (view room).
[2022-08-10] MEDS: SODIUM CHLORIDE 0.9% 1,000 ML 50 ML IV (22:02)
[2022-08-11] MEDS: HYDROMORPHONE 0.5 MG INJ IV ×4 (00:54→21:13)
[2022-08-11 01:37] VITALS: BP 110/67; PULSE 97; RESP 20; TEMP 37.1; O2SAT 97
[2022-08-11 07:39] LABS: Add Manual Diff / Slide Review NO; Basophils Absolute Auto 0 /uL (0-100); Eosinophils Absolute Auto 200 /uL (0-450); Eosinophils Percent Auto 4.7 % (2-4); Hematocrit 23.4 % (41-53); Hemoglobin 7.9 g/dL (13.5-17.5); Lymphocytes Absolute Auto 700 /uL (1100-4500); Mean Corpuscular HGB Conc 33.6 % (30-36); Mean Corpuscular Hemoglobin 31.4 PG (26-34); Mean Corpuscular Volume 93.5 fL (80-100); Monocytes Absolute Auto 500 /uL (0-900); Monocytes Percent Auto 12.3 % (3-14); Neutrophils Absolute Auto 2800 /uL (1500-7000); Platelet Count 200 X10^3/uL (150-400); Red Blood Cell Count 2.51 X10^6/uL (4.5-5.9); Red Cell Distribution Width 22.3 % (11.6-14.8); White Blood Cell Count 4.2 X10^3/uL (4.5-11.0)
[2022-08-11 07:47] LABS: Alanine Aminotransferase 42 IU/L (<50); Albumin 2.8 g/dL (3.5-5.0); Albumin Globulin Ratio 1.2 (1.0-2.8); Alkaline Phosphatase 97 U/L (38-126); Aspartate Aminotransferase 62 IU/L (17-59); BUN Creatinine Ratio 16.7 (6-22); Bilirubin Total 1.2 mg/dL (0.2-1.3); Blood Urea Nitrogen 9 mg/dL (9-20); Carbon Dioxide 38 mmol/L (22-32); Chloride 96 mmol/L (98-107); Estimated Glomerular Filt Rate > 60 mL/min (>60); Globulin 2.4 g/dL (1.7-4.1); Glucose 82 mg/dL (80-110); HEMOLYSIS < 15 (0-50); Magnesium 1.2 mg/dL (1.6-2.3); Potassium 4.5 mmol/L (3.4-5.1); Sodium 137 mmol/L (137-145); Total Protein 5.2 g/dL (6.3-8.2)
[2022-08-11 07:51] LABS: Anisocytosis 1+
[2022-08-11 08:00] VITALS: BP 117/92; PULSE 103; RESP 18; TEMP 36.4; O2SAT 95
[2022-08-11] MEDS: chlordiazePOXIDE 25 MG CAPSULE PO ×2 (08:17→21:13)
[2022-08-11 08:18] VITALS: BP 117/69; PULSE 99
[2022-08-11] MEDS: THIAMINE 100 MG TABLET PO (08:18)
[2022-08-11] MEDS: FOLIC ACID 1 MG TABLET PO (08:18)
[2022-08-11] MEDS: lisinopriL 10 MG TABLET PO (08:18)
[2022-08-11] MEDS: polyethylene glycoL 3350 17 GM POWD.PACK PO (08:20)
[2022-08-11] MEDS: MULTIVITAMIN 1 TABLET 1 TAB PO (08:20)
[2022-08-11] MEDS: SUCRALFATE 1 GM TABLET PO ×4 (08:20→21:13)
[2022-08-11] MEDS: OXYCODONE IR 5 MG TABLET PO (08:27)
[2022-08-11] MEDS: hydrOXYzine pamoate 25 MG CAPSULE PO (08:27)
[2022-08-11] MEDS: CALCIUM CARBONATE 500 MG TAB PO (08:28)
--- NOTE | 2022-08-11 09:24 | DI.RAD.S_ITS ---
PROCEDURE: XR SHOULDER RT MIN 2V INDICATIONS: assess for shoulder/distal clavicle fracture TECHNIQUE: 3 views of the shoulder were acquired. COMPARISON: None. FINDINGS: Bones: Generalized decrease in osseous mineralization noted. Transverse fracture of distal clavicle is noted with inferior displacement the fracture Soft tissues: No suspicious soft tissue calcifications. IMPRESSION: Displaced distal clavicular fracture. Osteopenia Approved by: Duane Em M.D. on 08/11/2022 at 10:00
--- NOTE | 2022-08-11 09:26 | P.PN_ITS ---
Subjective Subjective Date Patient Seen: 08/11/22 Interval history: Yazan Anderson is a 77 y.o. 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 He has had a prior clavicle fracture and apparently was unable to get up or bear weight due to severe right hip pain. On presentation, he stated his pain is a 10/10, particularly when moved, denies headache, nausea or vomiting. He continues to be unable to recall why or how he fell. Pain control not well controlled with prn doses. Main complaint is right shoulder pain. Mumbles when speaks and not easy to get info from the patient. Exam Vital Signs (past 8 hours): - 08/11/22 01:37 08/11/22 08:18 Temperature 98.7 F Pulse Rate 97 H 99 H Respiratory Rate 20 Blood Pressure 110/67 117/69 Pulse Oximetry 97 Oxygen Flow Rate 1 Fraction of Inspired Oxygen 28 SaO2/FiO2 Ratio 350 Oxygen Delivery Method Nasal Cannula Oxygen Flow Rate 1 Narrative Exam Narrative: Gen: Alert, oriented to person only, cachectic appearing male, appears uncomfortable and in pain HEENT: normocephalic, atraumatic, conjunctiva clear, sclera non-icteric, oral mucosa pink and moist Neck: supple, full ROM, no JVD, trachea is midline Resp: Lungs CTA, non-labored breathing CV: tachy but regular, no murmur or rubs Abd: soft, non-tender, normoactive BTs Skin: Multiple new bruises on right shoulder and both arms, thin and friable skin Neuro: Alert and oriented to person w/no focal deficits. Speech clear and coh erent. Extremities: unable to moves lower extremities w/o extreme pain, is normally ambulatory, negative Kim's sign, significant pain while trying to move right shoulder Psyche: appears to be normal mood and affect. Objective Labs 08/11/22 07:18 08/11/22 07:18 Labs: Laboratory Results - last 24 hr 08/11/22 08/11/22 07:18 07:18 WBC 4.2 L RBC 2.51 L Hgb 7.9 L Hct 23.4 L MCV 93.5 MCH 31.4 MCHC 33.6 RDW 22.3 H Plt Count 200 Neut % (Auto) 66.0 Lymph % (Auto) 16.0 L [place] % (Auto) 12.3 Eos % (Auto) 4.7 H Baso % (Auto) 1.0 Neut # (Auto) 2800 Lymph # (Auto) 700 L [place] # (Auto) 500 Eos # (Auto) 200 Baso # (Auto) 0 RBC Morphology Not Reportable Anisocytosis 1+ H Sodium 137 Potassium 4.5 D Chloride 96 L Carbon Dioxide 38 H BUN 9 Creatinine 0.54 L Estimated GFR > 60 BUN/Creatinine Ratio 16.7 Glucose 82 Calcium 9.0 Magnesium 1.2 L Total Bilirubin 1.2 AST 62 H ALT 42 Alkaline Phosphatase 97 Total Protein 5.2 L Albumin 2.8 L Globulin 2.4 Albumin/Globulin Ratio 1.2 COUNT INCLUDES THE [facility] Medical History CAD (coronary artery disease) Claudication of both lower extremities COPD (chronic obstructive pulmonary disease) HTN (hypertension) Hyperlipidemia Surgical History History of heart artery stent Social History household members: none Smoking Status: Current every day smoker alcohol intake: current Assessment & Plan Assessment & Plan narrative: 1) Probable alcohol withdrawal, acute * CIWA protocol with lorazepam * Seizure precautions * Multivitamin, folic acid and thiamine daily 2) Fall resulting in multiple site trauma and fractures, acute, present on admission * ED consulted with Orthopedic surgery who believes his fractures are nonoperative however they will follow as needed on this case * Right shoulder never completed xray, ordered for today 3) 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 daily 7) HTN - controlled, continue Lisinopril 10 mg daily 8) low magnesium, low potassium and low calcium, replace and follow 9) low Hb, follow and do iron studies 10) pain control, not adequate, give scheduled dose of 0.5 mg Dilaudid orally every 6 hours as well as prn meds. Consultants Allison Oakley, Orthopedic Surgery care and involvement in the patient?s care is appreciated. Dispo: unknown at this time Code status: DNR was discussed with the patient on admission and confirmed by me, who identifies his daughter? as? his surrogate and POA. VTE Deep Vein Thrombosis/Pulmonary Embolism Present on Admission: Yes, being held currently. MIPS - DC The patient has current or prior documentation of left ventricular ejection fraction (LVEF) less than 40%, or moderate or severely depressed left ventricu lar systolic function.: No COVID-19 COVID-19 status: Negative Result date/Date tested (Pos, Neg/Pending): 08/07/22 Time Spent With Patient Critical Care time: I spent a total of [] minutes of critical care time on this patient's care today; this time is exclusive of procedural time. Quality VTE Deep Vein Thrombosis/Pulmonary Embolism Present on Admission: Yes
[2022-08-11 09:48] LABS: HEMOLYSIS < 15 (0-50); Iron 22 ug/dL (49-181)
[2022-08-11 09:58] LABS: Percent Iron Saturation 16 % (20-50); Total Iron Binding Capacity 134 ug/dL (261-462)
[2022-08-11 10:28] LABS: Transferrin < 80 mg/dL (206-381)
[2022-08-11] MEDS: MAGNESIUM SULFATE 4 GM/100 ML PIGGYBACK IV (10:36)
[2022-08-11 11:20] VITALS: O2SAT 95
--- NOTE | 2022-08-11 11:25 | OT.IPNOTE ---
Attempted to do OT eval. Pt not able to follow commands to be able to wash his face when wash cloth given or toothbrush set-up for him. Pt would at times open his eyes and then close them again. To try again in PM.
[2022-08-11] MEDS: HYDROMORPHONE 2 MG TABLET 0.5 MG PO ×2 (12:42→17:56)
--- NOTE | 2022-08-11 13:28 | CM.DPC ---
DCP Ongoing Assessment attempts: Per MD, pt remains confused and on CIWA protocol and currently still on oxygen and pt can be difficult to understand due to his quiet and mumbled speech. PT/OT pending. Per RN, pt still confused and not aware he is in the hospital or the year but was able to give his . SW met bedside with pt and attempted discussion regarding discharge needs and pt unable to participate in discussion or goal oriented plan. [employer] Supervisor consult placed as pt quite malnourished. MAXIM Nugent kindly printed off pt's COVID vax status. PASRR previously completed in anticipation of SNF. Pt likely will need SNF but SW did not make any SNF referrals yet as PT/OT pending and SNFs would likely have concerns based on pt's current presentation and feel waiting for pt to make some improvements in his mentation and ability to complete PT/OT initial eval will likely help in securing SNF at d/c. Plan: SW to follow closely for pt progress and to be more medically appropriate to participate in PT/OT and bedside discharge discussion towards likely SNF referrals. BRENDA Cavazos
--- NOTE | 2022-08-11 13:58 | OT.IPNOTE ---
Attempted to see pt again for OT eval. Pt feels that he is at [facility] and aware that he fell. Pt not able to move much or assist with bed repositioning at this time. Pt tends to grunt but when asked why, pt states does not know why. No charge. To check on the pt tomorrow.
--- NOTE | 2022-08-11 16:28 | PT-IP ANOTE ---
Received PT orders and reviewed the chart. Attempted to meet with pt early this PM. He was able to answer one or two questions but then would drift off to sleep. He was incapable of sustained attention and not appropriate for PT evaluation today. Will follow up Thursday AM as staffing allows.
[2022-08-11 17:00] VITALS: BP 112/51; PULSE 100; RESP 18; TEMP 35.8; O2SAT 98
[2022-08-11] MEDS: OXYCODONE IR 10 MG TABLET PO (18:59)
[2022-08-11] MEDS: SENNOSIDES 8.6 MG TABLET 17.2 MG PO (21:13)
[2022-08-12] MEDS: SODIUM CHLORIDE 0.9% 1,000 ML 50 ML IV ×2 (00:04→23:25)
[2022-08-12 01:00] VITALS: BP 146/76; PULSE 94; RESP 15; TEMP 36.6; O2SAT 95
[2022-08-12] MEDS: HYDROMORPHONE 2 MG TABLET 0.5 MG PO ×2 (06:25)
[2022-08-12] MEDS: HYDROMORPHONE 0.5 MG INJ IV (06:25)
[2022-08-12 07:30] LABS: Add Manual Diff / Slide Review NO; Basophils Absolute Auto 0 /uL (0-100); Basophils Percent Auto 0.9 % (0-2); Eosinophils Absolute Auto 200 /uL (0-450); Eosinophils Percent Auto 4.7 % (2-4); Hematocrit 22.7 % (41-53); Hemoglobin 7.6 g/dL (13.5-17.5); Lymphocytes Absolute Auto 700 /uL (1100-4500); Lymphocytes Percent Auto 15.5 % (25-40); Mean Corpuscular HGB Conc 33.6 % (30-36); Mean Corpuscular Volume 92.2 fL (80-100); Monocytes Absolute Auto 500 /uL (0-900); Neutrophils Absolute Auto 3000 /uL (1500-7000); Neutrophils Percent Auto 66.9 % (50-75); Platelet Count 220 X10^3/uL (150-400); Red Blood Cell Count 2.46 X10^6/uL (4.5-5.9); Red Cell Distribution Width 22.7 % (11.6-14.8); White Blood Cell Count 4.5 X10^3/uL (4.5-11.0)
[2022-08-12 07:41] LABS: Blood Urea Nitrogen 7 mg/dL (9-20); Calcium 8.7 mg/dL (8.4-10.2); Carbon Dioxide 39 mmol/L (22-32); Chloride 94 mmol/L (98-107); Estimated Glomerular Filt Rate > 60 mL/min (>60); Glucose 104 mg/dL (80-110); HEMOLYSIS < 15 (0-50); Magnesium 1.4 mg/dL (1.6-2.3); Potassium 3.6 mmol/L (3.4-5.1); Sodium 136 mmol/L (137-145)
[2022-08-12 07:55] LABS: Nucleated Red Blood Cells 1 #/Diff
[2022-08-12 07:56] LABS: Anisocytosis 2+; Poikilocytosis 1+
[2022-08-12 08:00] VITALS: BP 126/59; PULSE 99; RESP 18; TEMP 36.4; O2SAT 97
[2022-08-12 08:35] VITALS: BP 126/59; PULSE 99
[2022-08-12] MEDS: CALCIUM CARBONATE 500 MG TAB PO (08:35)
[2022-08-12] MEDS: lisinopriL 10 MG TABLET PO (08:35)
[2022-08-12] MEDS: SUCRALFATE 1 GM TABLET PO ×3 (08:35→21:06)
[2022-08-12] MEDS: FOLIC ACID 1 MG TABLET PO (08:35)
[2022-08-12] MEDS: chlordiazePOXIDE 25 MG CAPSULE PO ×2 (08:35→21:06)
[2022-08-12] MEDS: OXYCODONE IR 10 MG TABLET PO (08:36)
[2022-08-12] MEDS: polyethylene glycoL 3350 17 GM POWD.PACK PO (08:38)
[2022-08-12 08:53] VITALS: BP 126/59; PULSE 99; RESP 18; TEMP 36.4; O2SAT 97
[2022-08-12] MEDS: MULTIVITAMIN 1 TABLET 1 TAB PO (09:00)
[2022-08-12] MEDS: MAGNESIUM CHLORIDE 64 MG TABLET 128 MG PO (11:20)
--- NOTE | 2022-08-12 12:46 | PT-IP ANOTE ---
checked on pt and pt is lethargic. attempted to wake up but pt will open his eyes but goes back to sleep. pt is not appropriate for PT at this time.
--- NOTE | 2022-08-12 13:31 | PT-IP ANOTE ---
Pt refused stating pain too great to move. Agreed to PT tomorrow. Notified nsg.
--- NOTE | 2022-08-12 13:48 | PT-IP ANOTE ---
checked on pt again this afternoon and pt continues to be lethargic. informed hospitalist that pt is not appropriate for PT at this time and eval order will be d/c's. PT eval order received 08/08/22 and pt initially on hold due to pt not medically stable and then at this time, pt is not appropriate; pt not alert to follow directions. hospitalist agreed to d/c order and will re-order once pt is more appropriate to do PT.
--- NOTE | 2022-08-12 14:04 | OT.IPNOTE ---
Checked on Pt again, pt continues to be lethargic and not appropriate for for therapy at this time. Discharge OT services, hospitalist, case management, and nursing aware.
--- NOTE | 2022-08-12 14:54 | P.PN_ITS ---
Subjective Subjective Date Patient Seen: 08/12/22 Interval history: Per nursing has been alternating between yelling, agitation, and just wanting to sleep. PT has signed off for now do to unable to work with patient. Basically in a setting of alcohol withdrawal and malnutrition, the patient also has the followin. Infrarenal abdominal aortic aneurysm measures up to 4.4 cm in diameter.? No aneurysmal rupture, aortic dissection, or intramural hematoma. 2. 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 Multifocal moderate to severe aortoiliac and proximal femoral atherosclerosis. 3. Moderate coronary artery calcifications. 4. Minimally displaced fractures of the right superior and inferior pubic rami.? Comminuted fracture of the adjacent right acetabulum is seen without significant displacement.? Moderate presacral edema is of uncertain etiology but a nondisplaced sacral fracture is not excluded. 5. Unchanged chronic compression fractures at T12 and L3.? Moderate T8 compression fracture is seen of uncertain age. 6. Multiple bilateral rib fractures are seen in various stages of healing. 7. Right distal clavicle fracture. Exam Vital Signs (past 8 hours): - 08/12/22 07:00 08/12/22 08:00 08/12/22 08:35 Temperature 97.6 F Pulse Rate 99 H 99 H Respiratory Rate 18 Blood Pressure 126/59 L 126/59 L Pulse Oximetry 97 Oxygen Delivery Method Nasal Cannula Oxygen Flow Rate 0 08/12/22 08:53 Temperature 97.6 F Pulse Rate 99 H Respiratory Rate 18 Blood Pressure 126/59 L Pulse Oximetry 97 Oxygen Delivery Method Oxygen Flow Rate 1 Fraction of Inspired Oxygen 28 SaO2/FiO2 Ratio 350 Oxygen Delivery Method Nasal Cannula Oxygen Flow Rate 1 Narrative Exam Narrative: Gen: Oriented to person only when awake, currently sleeping, cachectic appearing male, appears comfortable HEENT: normocephalic, atraumatic, conjunctiva clear, sclera non-icteric, oral mucosa pink and moist Neck: supple, full ROM, no JVD, trachea is midline Resp: Lungs CTA, non-labored breathing CV: regular, no murmur or rubs Abd: soft, non-tender, normoactive BTs Skin: Multiple new bruises on right shoulder and both arms, thin and friable skin Neuro: Alert and oriented to person w/no focal deficits. Speech clear and coherent. Extremities: unable to moves lower extremities w/o extreme pain, is normally ambulatory, negative Kim's sign, significant pain while trying to move right shoulder Psyche: appears to be normal mood and affect. Objective Labs 08/12/22 07:10 08/12/22 07:10 Labs: Laboratory Results - last 24 hr 08/12/22 08/12/22 07:10 07:10 WBC 4.5 RBC 2.46 L Hgb 7.6 L Hct 22.7 L MCV 92.2 MCH 31.0 MCHC 33.6 RDW 22.7 H Plt Count 220 Neut % (Auto) 66.9 Lymph % (Auto) 15.5 L [place] % (Auto) 12.0 Eos % (Auto) 4.7 H Baso % (Auto) 0.9 Neut # (Auto) 3000 Lymph # (Auto) 700 L [place] # (Auto) 500 Eos # (Auto) 200 Baso # (Auto) 0 Nucleated RBCs 1 H RBC Morphology See below Poikilocytosis 1+ H Anisocytosis 2+ H Sodium 136 L Potassium 3.6 Chloride 94 L Carbon Dioxide 39 H BUN 7 L Creatinine 0.50 L Estimated GFR > 60 BUN/Creatinine Ratio 14.0 Glucose 104 Calcium 8.7 Magnesium 1.4 L PFSH Medical History CAD (coronary artery disease) Claudication of both lower extremities COPD (chronic obstructive pulmonary disease) HTN (hypertension) Hyperlipidemia Surgical History History of heart artery stent Social History household members: none Smoking Status: Current every day smoker alcohol intake: current Assessment & Plan Time Spent With Patient Critical Care time: I spent a total of [] minutes of critical care time on this patient's care today; this time is exclusive of procedural time. Quality VTE Deep Vein Thrombosis/Pulmonary Embolism Present on Admission: Yes
[2022-08-12 16:00] VITALS: BP 113/62; PULSE 92; RESP 16; TEMP 36.7; O2SAT 95
[2022-08-12] MEDS: MAGNESIUM SULFATE 4 GM/100 ML PIGGYBACK IV (16:57)
[2022-08-12] MEDS: KETOROLAC 30 MG/ML VIAL 15 MG IV (20:23)
[2022-08-13] VITALS: BP 130/96; PULSE 110; RESP 14; TEMP 36.4; O2SAT 93
[2022-08-13] MEDS: HYDROMORPHONE 2 MG TABLET 0.5 MG PO (02:18)
[2022-08-13] MEDS: KETOROLAC 30 MG/ML VIAL 15 MG IV ×4 (02:18→18:02)
[2022-08-13] MEDS: HYDROMORPHONE 0.5 MG INJ IV ×3 (03:16→20:03)
[2022-08-13 07:53] LABS: Add Manual Diff / Slide Review NO; Basophils Absolute Auto 100 /uL (0-100); Eosinophils Absolute Auto 200 /uL (0-450); Eosinophils Percent Auto 3.3 % (2-4); Hematocrit 23.6 % (41-53); Hemoglobin 7.8 g/dL (13.5-17.5); Lymphocytes Absolute Auto 700 /uL (1100-4500); Lymphocytes Percent Auto 12.8 % (25-40); Mean Corpuscular HGB Conc 32.9 % (30-36); Mean Corpuscular Volume 94.1 fL (80-100); Monocytes Absolute Auto 600 /uL (0-900); Monocytes Percent Auto 11.9 % (3-14); Neutrophils Absolute Auto 3700 /uL (1500-7000); Platelet Count 271 X10^3/uL (150-400); Red Blood Cell Count 2.51 X10^6/uL (4.5-5.9); Red Cell Distribution Width 23.3 % (11.6-14.8); White Blood Cell Count 5.1 X10^3/uL (4.5-11.0)
[2022-08-13 08:02] LABS: Anisocytosis 1+; Poikilocytosis 1+
[2022-08-13 08:15] LABS: Alanine Aminotransferase 33 IU/L (<50); Albumin 2.5 g/dL (3.5-5.0); Alkaline Phosphatase 97 U/L (38-126); Aspartate Aminotransferase 48 IU/L (17-59); BUN Creatinine Ratio 14.5 (6-22); Bilirubin Total 0.7 mg/dL (0.2-1.3); Blood Urea Nitrogen 8 mg/dL (9-20); Calcium 8.7 mg/dL (8.4-10.2); Carbon Dioxide 37 mmol/L (22-32); Chloride 96 mmol/L (98-107); Estimated Glomerular Filt Rate > 60 mL/min (>60); Globulin 2.4 g/dL (1.7-4.1); Glucose 113 mg/dL (80-110); HEMOLYSIS < 15 (0-50); Potassium 3.5 mmol/L (3.4-5.1); Sodium 136 mmol/L (137-145); Total Protein 4.9 g/dL (6.3-8.2)
[2022-08-13 08:17] LABS: Magnesium 1.8 mg/dL (1.6-2.3)
[2022-08-13 08:18] VITALS: BP 160/82; PULSE 97; RESP 16; TEMP 36.4; O2SAT 93
[2022-08-13 08:22] LABS: Prealbumin 7.3 mg/dL (17.6-36.0)
--- NOTE | 2022-08-13 08:53 | PC.NURSE ---
Day shift: Pt refused morning meds just now. Place pill in Pt's moth and he would not swallow it. Pt was asked if he wanted his morning meds and he relied No and also shook his head no.
[2022-08-13] MEDS: LORazepam 2 MG/ML INJ 0.5 MG IV ×2 (10:41→19:00)
[2022-08-13 16:22] VITALS: BP 164/86; PULSE 97; RESP 20; TEMP 36.7; O2SAT 98
[2022-08-13] MEDS: SODIUM CHLORIDE 0.9% 1,000 ML 50 ML IV (18:05)
--- NOTE | 2022-08-13 18:19 | PC.NURSE ---
Day shift: Pt in bed today with no complaints other than the frequent moans. When he is asked if he is having any pain he will often reply no and shake his head no as well. Per Dr Cheney Pt was given 0.5 IV Ativan today and he did sleep for approx 1 hour. He was not able to answer any questions today. HE did not drink anything and ate only some chocolate pudding. HE does not follow directions. WIll not lift arms or legs when asked. IV fluids infusing 50ml/hr. Condom cath patent and draining. Call light in reach. Bed alrm is on for safety. Door to room open for line of site. also Pt did not want any PO meds today and Dr Cheney is aware of this.
[2022-08-13] MEDS: SENNOSIDES 8.6 MG TABLET 17.2 MG PO (20:04)
[2022-08-13] MEDS: SUCRALFATE 1 GM TABLET PO (20:04)
[2022-08-13] MEDS: polyethylene glycoL 3350 17 GM POWD.PACK PO (20:04)
[2022-08-13] MEDS: CALCIUM CARBONATE 500 MG TAB PO (20:04)
--- NOTE | 2022-08-13 20:12 | PM.PN.1 ---
Subjective Subjective Date Patient Seen: 08/13/22 Interval history: Per nursing has been alternating between yelling, agitation, and just wanting to sleep. PT has signed off for now do to unable to work with patient. His CIWA scores have been stable, minimal change with ativan. Occasional loud moaning, though improved slightly. Exam Vital Signs (past 8 hours): - 08/13/22 16:22 Temperature 98.0 F Pulse Rate 97 H Respiratory Rate 20 Blood Pressure 164/86 H Pulse Oximetry 98 Oxygen Flow Rate 0 Fraction of Inspired Oxygen 28 SaO2/FiO2 Ratio 350 Oxygen Delivery Method Nasal Cannula Oxygen Flow Rate 0 Narrative Exam Narrative: Gen: Oriented to person only when awake, currently sleeping, cachectic appearing male, appears comfortable HEENT: normocephalic, atraumatic, conjunctiva clear, sclera non-icteric, oral mucosa pink and moist Neck: supple, full ROM, no JVD, trachea is midline Resp: Lungs CTA, non-labored breathing CV: regular, no murmur or rubs Abd: soft, non-tender, normoactive BTs Skin: Multiple new bruises on right shoulder and both arms, thin and friable skin Neuro: Alert and oriented to person w/no focal deficits. Speech clear and coherent. Extremities: unable to moves lower extremities w/o extreme pain, is normally ambulatory, negative Kim's sign, significant pain while trying to move right shoulder Psyche: appears to be normal mood and affect. Objective Labs 08/13/22 07:13 08/13/22 07:13 Labs: Laboratory Results - last 24 hr 08/13/22 08/13/22 08/13/22 07:13 07:13 07:13 WBC 5.1 RBC 2.51 L Hgb 7.8 L Hct 23.6 L MCV 94.1 MCH 31.0 MCHC 32.9 RDW 23.3 H Plt Count 271 Neut % (Auto) 71.0 Lymph % (Auto) 12.8 L [place] % (Auto) 11.9 Eos % (Auto) 3.3 Baso % (Auto) 1.0 Neut # (Auto) 3700 Lymph # (Auto) 700 L [place] # (Auto) 600 Eos # (Auto) 200 Baso # (Auto) 100 RBC Morphology Not Reportable Poikilocytosis 1+ H Anisocytosis 1+ H Sodium Potassium Chloride Carbon Dioxide BUN Creatinine Estimated GFR BUN/Creatinine Ratio Glucose Calcium Magnesium 1.8 Total Bilirubin AST ALT Alkaline Phosphatase Total Protein Albumin Globulin Albumin/Globulin Ratio Prealbumin 7.3 L 08/13/22 07:13 WBC RBC Hgb Hct MCV MCH MCHC RDW Plt Count Neut % (Auto) Lymph % (Auto) [place] % (Auto) Eos % (Auto) Baso % (Auto) Neut # (Auto) Lymph # (Auto) [place] # (Auto) Eos # (Auto) Baso # (Auto) RBC Morphology Poikilocytosis Anisocytosis Sodium 136 L Potassium 3.5 Chloride 96 L Carbon Dioxide 37 H BUN 8 L Creatinine 0.55 L Estimated GFR > 60 BUN/Creatinine Ratio 14.5 Glucose 113 H Calcium 8.7 Magnesium Total Bilirubin 0.7 AST 48 ALT 33 Alkaline Phosphatase 97 Total Protein 4.9 L Albumin 2.5 L Globulin 2.4 Albumin/Globulin Ratio 1.0 Prealbumin [facility] Medical History CAD (coronary artery disease) Claudication of both lower extremities COPD (chronic obstructive pulmonary disease) HTN (hypertension) Hyperlipidemia Surgical History History of heart artery stent Social History household members: none Smoking Status: Current every day smoker alcohol intake: current Assessment & Plan Assessment & Plan narrative: 1) Probable alcohol withdrawal, acute metabolic encephalopathy - may represent DTs with ongoing confusion, but with continued pain and confusion it is not entirely clear underlying process at the moment. - continue CIWA protocol, has been stable with low CIWA scores though may represent DTs - CT head negative, no other obvious metabolic or infectious etiology. - possibly medication related or toxic? limit opiates and benzos but also needed for presumed withdrawal. 2) Fall resulting in multiple site trauma and fractures, acute, present on admission - ED consulted with Orthopedic surgery who believes his fractures are nonoperative however they will follow as needed on this case, appreciate their consultation. 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 daily 7) HTN - controlled, continue Lisinopril 10 mg daily 8) low magnesium, low potassium and low calcium, replace and follow 9) low Hb, follow and do iron studies, likely chronic with EtOH use 10) pain control, not adequate, give scheduled dose of 0.5 mg Dilaudid orally every 6 hours as well as prn meds. Consultants Allison Oakley, Orthopedic Surgery care and involvement in the patient?s care is appreciated. Dispo: unknown at this time, pending improvement in encephlopathy. Code status: DNR was discussed with the patient on admission and confirmed by me, who identifies his daughter? as? his surrogate and POA. VTE Deep Vein Thrombosis/Pulmonary Embolism Present on Admission: Yes, being held currently. MIPS - DC The patient has current or prior documentation of left ventricular ejection fraction (LVEF) less than 40%, or moderate or severely depressed left ventricular systolic function.: No COVID-19 COVID-19 status: Negative Result date/Date tested (Pos, Neg/Pending): 08/07/22 Time Spent With Patient Critical Care time: I spent a total of [] minutes of critical care time on this patient's care today; this time is exclusive of procedural time. Quality VTE Deep Vein Thrombosis/Pulmonary Embolism Present on Admission: Yes
[2022-08-13 23:53] VITALS: BP 154/75; PULSE 86; RESP 15; TEMP 36.6; O2SAT 93
[2022-08-14] MEDS: HYDROMORPHONE 2 MG TABLET 0.5 MG PO ×2 (00:20→06:12)
[2022-08-14] MEDS: KETOROLAC 30 MG/ML VIAL 15 MG IV ×4 (00:21→18:39)
[2022-08-14] MEDS: HYDROMORPHONE 0.5 MG INJ IV (02:44)
[2022-08-14 08:25] VITALS: BP 155/72; PULSE 78; TEMP 36.3
[2022-08-14] MEDS: CALCIUM CARBONATE 500 MG TAB PO ×2 (09:26→20:50)
[2022-08-14] MEDS: FOLIC ACID 1 MG TABLET PO (09:26)
[2022-08-14] MEDS: MULTIVITAMIN 1 TABLET 1 TAB PO (09:27)
[2022-08-14] MEDS: lisinopriL 10 MG TABLET PO (09:27)
[2022-08-14] MEDS: SUCRALFATE 1 GM TABLET PO ×3 (09:31→20:50)
[2022-08-14] MEDS: LORazepam 2 MG/ML INJ 0.5 MG IV (10:42)
[2022-08-14] MEDS: hydrOXYzine pamoate 25 MG CAPSULE PO ×2 (11:12→23:54)
[2022-08-14] MEDS: OXYCODONE IR 5 MG TABLET PO (14:17)
[2022-08-14] MEDS: SODIUM CHLORIDE 0.9% 1,000 ML 50 ML IV (14:18)
--- NOTE | 2022-08-14 15:52 | DIET.CONS2 ---
Dietary Inpatient Consultation Note Admission Date: 08/09/2022 10:15 Malnourished 77y M on LOS day 5 with minimal PO intake due to somnolence. Pt is DNR. Pt would benefit from initiation of nutrition support via tube feed if within goals of care. Diet: 08/07/22 Breakfast Heart Healthy Diet Diet Modifications: Nutrition Percent Meal Consumed 0% 08/13/22 18:00 Percent Meal Consumed 2 08/13/22 08:32 Percent Meal Consumed 25% 08/12/22 18:00 Electronically Signed by: Patricia Valdovinos 08/14/22 15:52 Clinical Dietitian [address] [address]
[2022-08-14 17:52] VITALS: BP 160/87; PULSE 88; RESP 18; TEMP 36.5; O2SAT 95
--- NOTE | 2022-08-14 18:39 | P.PN_ITS ---
Subjective Subjective Date Patient Seen: 08/14/22 Interval history: Patient is slowly improving today, more alert and oriented but still confused and does not respond to Exam Vital Signs (past 8 hours): Fraction of Inspired Oxygen 28 SaO2/FiO2 Ratio 350 Oxygen Delivery Method Room Air Oxygen Flow Rate 0 Narrative Exam Narrative: Gen: Oriented to person only when awake, currently sleeping, cachectic appearing male, appears comfortable HEENT: normocephalic, atraumatic, conjunctiva clear, sclera non-icteric, oral mucosa pink and moist Neck: supple, full ROM, no JVD, trachea is midline Resp: Lungs CTA, non-labored breathing CV: regular, no murmur or rubs Abd: soft, non-tender, normoactive BTs Skin: Multiple new bruises on right shoulder and both arms, thin and friable skin Neuro: Alert and oriented to person w/no focal deficits. Speech clear and coherent. Extremities: unable to moves lower extremities w/o extreme pain, is normally ambulatory, negative Kim's sign, significant pain while trying to move right shoulder Psyche: appears to be normal mood and affect. Objective Labs 08/13/22 07:13 08/13/22 07:13 [facility] Medical History CAD (coronary artery disease) Claudication of both lower extremities COPD (chronic obstructive pulmonary disease) HTN (hypertension) Hyperlipidemia Surgical History History of heart artery stent Social History household members: none Smoking Status: Current every day smoker alcohol intake: current Assessment & Plan Assessment & Plan narrative: 1) Probable alcohol withdrawal, acute metabolic encephalopathy - may represent DTs with ongoing confusion with gradual improvement, but with continued pain and confusion it is not entirely clear underlying process at the moment. - continue CIWA protocol, has been stable with low CIWA scores though may represent DTs - CT head negative, no other obvious metabolic or infectious etiology. - possibly medication related or toxic? limit opiates and benzos but also needed for presumed withdrawal. - if no signficant improvement in the coming days, consider MRI. 2) Fall resulting in multiple site trauma and fractures, acute, present on admission - ED consulted with Orthopedic surgery who believes his fractures are nonoperative however they will follow as needed on this case, appreciate their consultation. There are weight bearing restrctions noted below. - needs PT/OT evaluations but has not been signed off - per orthopedic surgeon: He can be weight-bearing at most of about 10 lb in the right upper extremity.? He has a pelvic fracture with a crack into his right acetabulum.? He can be weight-bearing 50 lb on the right lower extremity. 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 daily 7) HTN - controlled, continue Lisinopril 10 mg daily 8) low magnesium, low potassium and low calcium, replace and follow 9) Anemia, follow and do iron studies, likely chronic with EtOH use Consultants Allison Oakley, Orthopedic Surgery care and involvement in the patient?s care is appreciated. Dispo: unknown at this time, pending improvement in encephlopathy, and will need to work with PT. Code status: DNR was discussed with the patient on admission and confirmed. identifies his daughter? as? his surrogate and POA. VTE Deep Vein Thrombosis/Pulmonary Embolism Present on Admission: Yes, being held currently. MIPS - DC The patient has current or prior documentation of left ventricular ejection fraction (LVEF) less than 40%, or moderate or severely depressed left ventricular systolic function.: No COVID-19 COVID-19 status: Negative Result date/Date tested (Pos, Neg/Pending): 08/07/22 Time Spent With Patient Critical Care time: I spent a total of [] minutes of critical care time on this patient's care today; this time is exclusive of procedural time. Quality VTE Deep Vein Thrombosis/Pulmonary Embolism Present on Admission: Yes
[2022-08-14] MEDS: SODIUM CHLORIDE 0.9% FLUSH 10 ML IV (20:50)
[2022-08-14] MEDS: SENNOSIDES 8.6 MG TABLET 17.2 MG PO (20:50)
[2022-08-14 21:15] VITALS: BP 170/86; PULSE 82; RESP 19; TEMP 36.3; O2SAT 95
[2022-08-15] MEDS: KETOROLAC 30 MG/ML VIAL 15 MG IV ×3 (00:49→12:28)
[2022-08-15] MEDS: HYDROMORPHONE 0.5 MG INJ IV ×2 (02:28→06:08)
[2022-08-15 05:16] VITALS: BP 176/84; PULSE 61; RESP 17; TEMP 35.9; O2SAT 96
[2022-08-15 08:44] VITALS: BP 139/83; PULSE 57; RESP 20; TEMP 36.2; O2SAT 94
[2022-08-15 08:48] LABS: Blood Urea Nitrogen 8 mg/dL (9-20); Calcium 8.3 mg/dL (8.4-10.2); Carbon Dioxide 31 mmol/L (22-32); Chloride 102 mmol/L (98-107); Estimated Glomerular Filt Rate > 60 mL/min (>60); Glucose 78 mg/dL (80-110); HEMOLYSIS < 15 (0-50); Magnesium 1.3 mg/dL (1.6-2.3); Potassium 3.7 mmol/L (3.4-5.1); Sodium 137 mmol/L (137-145)
[2022-08-15 08:50] LABS: Add Manual Diff / Slide Review NO; Basophils Absolute Auto 100 /uL (0-100); Basophils Percent Auto 1.3 % (0-2); Eosinophils Absolute Auto 200 /uL (0-450); Eosinophils Percent Auto 3.5 % (2-4); Hematocrit 24.1 % (41-53); Lymphocytes Absolute Auto 800 /uL (1100-4500); Lymphocytes Percent Auto 16.6 % (25-40); Mean Corpuscular HGB Conc 33.3 % (30-36); Mean Corpuscular Hemoglobin 31.2 PG (26-34); Mean Corpuscular Volume 93.7 fL (80-100); Monocytes Absolute Auto 800 /uL (0-900); Monocytes Percent Auto 15.9 % (3-14); Neutrophils Absolute Auto 3000 /uL (1500-7000); Neutrophils Percent Auto 62.7 % (50-75); Platelet Count 438 X10^3/uL (150-400); Red Blood Cell Count 2.58 X10^6/uL (4.5-5.9); Red Cell Distribution Width 23.4 % (11.6-14.8); White Blood Cell Count 4.8 X10^3/uL (4.5-11.0)
[2022-08-15] MEDS: MULTIVITAMIN 1 TABLET 1 TAB PO (09:18)
[2022-08-15] MEDS: CALCIUM CARBONATE 500 MG TAB PO ×2 (09:18→20:01)
[2022-08-15] MEDS: FOLIC ACID 1 MG TABLET PO (09:18)
[2022-08-15] MEDS: lisinopriL 10 MG TABLET PO (09:18)
[2022-08-15] MEDS: polyethylene glycoL 3350 17 GM POWD.PACK PO (09:18)
[2022-08-15] MEDS: ACETAMINOPHEN 325 MG TABLET 975 MG PO (09:19)
[2022-08-15] MEDS: SODIUM CHLORIDE 0.9% 1,000 ML 50 ML IV (09:20)
--- NOTE | 2022-08-15 11:10 | DIET.PN1 ---
Dietary Progress Note Assessment: Malnourished 77y M on LOS day 6 with minimal PO intake due to somnolence. Pt is DNR. Pt would benefit from initiation of nutrition support via tube feed if within goals of care. Discussion in rounds indicates plan to adjust medications in hopes of improving alertness and therefore PO. Will continue to follow. Ht: 175.26 cm Wt: 56.699 kg BMI: 18.4 Diet: 08/07/22 Breakfast Heart Healthy Diet Diet Modifications: Nutrition Percent Meal Consumed 25% 08/15/22 09:10 Percent Meal Consumed 0% 08/13/22 18:00 Electronically Signed by: Gretchen Teixeira 08/15/22 11:10 Clinical Dietitian [address] [address]
[2022-08-15 11:11] LABS: Anisocytosis 3+; Poikilocytosis 1+
[2022-08-15] MEDS: SUCRALFATE 1 GM TABLET PO ×2 (12:27→20:01)
[2022-08-15] MEDS: MAGNESIUM CHLORIDE 64 MG TABLET 128 MG PO ×2 (12:27→20:01)
--- NOTE | 2022-08-15 13:44 | CM.DPC ---
Addendum entered by Kasandra Hardin, REHABILITATION NURSE 08/16/22 08:43: ADD: [facility]- no JW Original Note: DCP Continued: CM LVM with patients daughter however she is currently [place] and has been challenging to get a hold of. Cm spoke with patients friend Scott and he was in agreement that patient will more then likely need SNF at DC and he agreed with [facility], [facility] and [facility] as options for SNF CM reviewed these OPTIONS over the phone and reviewed star rating per IPAD. CM Called Lydia at [facility] who stated she will review and LVM for christiano at [facility] and Raquel at [facility]. PASSR needed. Scott did say his texts his daughter and she responds so they are going to text her and give her CM phone number to touch base about his care. hope is that we can find an accepting facility for when the patient is more clear to discharge with a home with HH plan when he DC from SNF. Meka Oakley RN [employer]
[2022-08-15] MEDS: LORazepam 2 MG/ML INJ 0.5 MG IV (14:32)
--- NOTE | 2022-08-15 14:34 | PC.NURSE ---
Day shift: At approx 1400 Pt sitting at side of bed and wanting to get OOB. Asked Pt to get back into bed and he refused. Pt sitting in a small BM. Not cooperating for approx 30 minutes with this journalists and other writers and JYOTI Lutz. nursery worker All came into room at approx 1420 and was able to get Pt back into bed. He did c/o left leg spasms and IV Ativan given per MD orders. Door to room is open and call light in reach as well as bed alarm on. Will let MD know about Pt's uncooperative nature this afternoon. He was able to form complete sentences and said I will crawl out of here and I don't care if I'm naked.
--- NOTE | 2022-08-15 16:08 | P.PN_ITS ---
Subjective Subjective Interval history: 77-year-old male with underlying coronary artery disease prior left total hip arthroplasty, prior clavicular fracture, COPD, tobacco dependence, and alcohol dependence who is presently hospital day 8. He was admitted with mild subacute T3 compression fracture, age-indeterminate T8 fracture, severe T12 compression fracture, distal right clavicular fracture, obturator and acetabular fractures, and was incidentally found to have infrarenal aneurysm with mural thrombus, h igh-grade celiac artery stenosis, and right SFA occlusion. Hospital course has been complicated by encephalopathy of unclear etiology. His home environment is not entirely clear. Care management has been attempting to come up with a discharge plan for him which has proven to be difficult in light of his encephalopathy, and inability thus far to participate in therapies. Patient is very drowsy but arousable. He is confused. He denies pain but is clearly painful with movement. He denies being hungry. Exam Vital Signs (past 8 hours): - 08/15/22 08:44 Temperature 97.2 F L Pulse Rate 57 L Respiratory Rate 20 Blood Pressure 139/83 Pulse Oximetry 94 Oxygen Flow Rate 0 Fraction of Inspired Oxygen 28 SaO2/FiO2 Ratio 350 Oxygen Delivery Method Room Air Oxygen Flow Rate 0 Narrative Exam Narrative: GEN: Disheveled elderly male, drowsy, oriented to self only, NAD HEENT:NC, Face symmetric CHEST: Respiratory excursions symmetric, CTAB CV: RRR, no M/R/G ABD: Soft, NT/ND, BT present in all 4 quadrants, no organomegaly or masses EXTR: warm, well perfused, no C/C/E SKIN: warm and dry, no rash NEURO: Nonfocal Objective Labs 08/15/22 08:10 08/15/22 08:10 Labs: Laboratory Results - last 24 hr 08/15/22 08/15/22 08:10 08:10 WBC 4.8 RBC 2.58 L Hgb 8.0 L Hct 24.1 L MCV 93.7 MCH 31.2 MCHC 33.3 RDW 23.4 H Plt Count 438 H Neut % (Auto) 62.7 Lymph % (Auto) 16.6 L [place] % (Auto) 15.9 H Eos % (Auto) 3.5 Baso % (Auto) 1.3 Neut # (Auto) 3000 Lymph # (Auto) 800 L [place] # (Auto) 800 Eos # (Auto) 200 Baso # (Auto) 100 RBC Morphology See below Poikilocytosis 1+ H Anisocytosis 3+ H D Sodium 137 Potassium 3.7 Chloride 102 Carbon Dioxide 31 BUN 8 L Creatinine 0.47 L Estimated GFR > 60 BUN/Creatinine Ratio 17.0 Glucose 78 L Calcium 8.3 L Magnesium 1.3 L [facility] Medical History CAD (coronary artery disease) Claudication of both lower extremities COPD (chronic obstructive pulmonary disease) HTN (hypertension) Hyperlipidemia Surgical History History of heart artery stent Social History household members: none Smoking Status: Current every day smoker alcohol intake: current Assessment & Plan Assessment & Plan narrative: 1. Acute metabolic encephalopathy Unclear etiology. Unclear as to his baseline. It was noted he was a poor historian on admission. No evidence of UTI. No fever. CIWA scores have been low. He was treated for withdrawal but Librium has since been discontinued. CT of the head was negative. Given his degree of drowsiness/sedation I have discontinued his opiates and will continue Tylenol for pain in hopes that his mentation will clear. Will work on increasing his activity level, getting him up to chair and hopefully engaging him to participate in his care. 2. Fall resulting in multiple traumatic fractures Orthopedic surgery felt his fractures were nonoperative. Patient is allowed to bear 10 lb at most in the right upper extremity. He can be weight-bearing up to 50 lb on the right lower extremity. Await for therapies to be able to work with him. As noted his encephalopathy has limited that. Tylenol for pain. Discontinue opiates for now. 3. 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 Infrarenal aneurysm with mural thrombus Will need follow-up on an outpatient basis with vascular surgery. Asymptomatic. 5. Coronary artery disease Continues aspirin, Plavix, lisinopril 6. Hyperlipidemia Continue atorvastatin 7. Hypertension Continue lisinopril 8. Electrolyte derangements Patient had hypomagnesemia, hypokalemia, and hypocalcemia. Potassium is 3.7 today. Magnesium is low at 1.3. This is being repleted per pharmacy. Will continue to periodically monitor and replete as needed 9. Anemia Hemoglobin is stable at 8.0. He did require 1 unit of packed red blood cells earlier this hospitalization. 10. Alcohol dependence Presently no evidence of alcohol withdrawal. Will continue to monitor. 11. Tobacco dependence No nicotine patch ordered at this time. Will consider if he develops symptoms of nicotine withdrawal Code status DNR Prophylaxis Held in the setting of acute blood loss anemia requiring transfusion earlier this hospitalization. Disposition Pending Surrogate decision maker Unknown Time Spent With Patient Critical Care time: I spent a total of [] minutes of critical care time on this patient's care today; this time is exclusive of procedural time. Quality VTE Deep Vein Thrombosis/Pulmonary Embolism Present on Admission: Yes
[2022-08-15] MEDS: SODIUM CHLORIDE 0.9% FLUSH 10 ML IV (20:01)
[2022-08-15] MEDS: hydrOXYzine pamoate 25 MG CAPSULE PO (20:01)
[2022-08-15 22:00] VITALS: BP 163/108; PULSE 88; RESP 20; TEMP 36.7; O2SAT 95
[2022-08-16] MEDS: KETOROLAC 30 MG/ML VIAL 15 MG IV ×4 (00:04→18:27)
[2022-08-16] MEDS: ACETAMINOPHEN 325 MG TABLET 975 MG PO ×4 (00:04→22:56)
[2022-08-16 00:35] VITALS: BP 184/99; PULSE 87; RESP 20; TEMP 36.4; O2SAT 96
[2022-08-16] MEDS: OXYCODONE IR 5 MG TABLET PO (01:03)
[2022-08-16 01:10] VITALS: BP 176/97
[2022-08-16] MEDS: SODIUM CHLORIDE 0.9% 1,000 ML 50 ML IV (04:57)
[2022-08-16 06:44] LABS: Basophils Absolute Auto 100 /uL (0-100); Eosinophils Absolute Auto 100 /uL (0-450); Eosinophils Percent Auto 2.5 % (2-4); Hematocrit 27.3 % (41-53); Hemoglobin 9.1 g/dL (13.5-17.5); Lymphocytes Absolute Auto 800 /uL (1100-4500); Lymphocytes Percent Auto 20.7 % (25-40); Mean Corpuscular HGB Conc 33.4 % (30-36); Mean Corpuscular Hemoglobin 31.2 PG (26-34); Mean Corpuscular Volume 93.4 fL (80-100); Monocytes Absolute Auto 600 /uL (0-900); Monocytes Percent Auto 14.8 % (3-14); Neutrophils Absolute Auto 2400 /uL (1500-7000); Platelet Count 564 X10^3/uL (150-400); Red Blood Cell Count 2.92 X10^6/uL (4.5-5.9)
[2022-08-16 06:46] LABS: Add Manual Diff / Slide Review SLIDE REVIEW
[2022-08-16 07:15] LABS: Anisocytosis 2+
[2022-08-16 07:29] LABS: BUN Creatinine Ratio 14.6 (6-22); Blood Urea Nitrogen 7 mg/dL (9-20); Calcium 8.7 mg/dL (8.4-10.2); Carbon Dioxide 30 mmol/L (22-32); Chloride 103 mmol/L (98-107); Estimated Glomerular Filt Rate > 60 mL/min (>60); Glucose 89 mg/dL (80-110); HEMOLYSIS < 15 (0-50); Magnesium 1.3 mg/dL (1.6-2.3); Potassium 3.1 mmol/L (3.4-5.1); Sodium 139 mmol/L (137-145)
--- NOTE | 2022-08-16 08:29 | PM.PN.1 ---
Subjective Subjective Interval history: 77-year-old male with underlying coronary artery disease prior left total hip arthroplasty, prior clavicular fracture, COPD, tobacco dependence, and alcohol dependence who is presently hospital day 8.? He was admitted with mild subacute T3 compression fracture, age-indeterminate T8 fracture, severe T12 compression fracture, distal right clavicular fracture, obturator and acetabular fractures, and was incidentally found to have infrarenal aneurysm with mural thrombus, high-grade celiac artery stenosis, and right SFA occlusion.? Hospital course has been complicated by encephalopathy of unclear etiology.? This morning, patient is awake and interactive. He reports he has no recollection of coming to the hospital. He states he does live alone and is able to care for himself at baseline. He is irritable and has been yelling out. Despite being reoriented several times his RN reports he is not believed her that he is in the hospital. I discussed with him that he was hospitalized and had been encephalopathic for a number of days. He states that can not be true because he does not remember it. He also does not believe me when I advised that he has sustained fractures. He tells me he does not like being messed with and if he knew we would mess with him in the hospital he would not come. Exam Vital Signs (past 8 hours): - 08/16/22 00:35 08/16/22 01:10 Temperature 97.6 F Pulse Rate 87 Respiratory Rate 20 Blood Pressure 184/99 H 176/97 H Pulse Oximetry 96 Oxygen Flow Rate 0 Fraction of Inspired Oxygen 28 SaO2/FiO2 Ratio 350 Oxygen Delivery Method Room Air Oxygen Flow Rate 0 Narrative Exam Narrative: GEN: Disheveled elderly male, alert, oriented to self only, NAD HEENT:NC, Face symmetric CHEST: Respiratory excursions symmetric, CTAB CV: RRR, no M/R/G ABD: Soft, NT/ND, BT present in all 4 quadrants, no organomegaly or masses EXTR: warm, well perfused, no C/C/E SKIN: warm and dry, no rash NEURO:? Nonfocal, confused, somewhat argumentative Objective Labs 08/16/22 06:13 08/16/22 06:13 Labs: Laboratory Results - last 24 hr 08/15/22 08/15/22 08/16/22 08:10 08:10 06:13 WBC 4.8 4.0 L RBC 2.58 L 2.92 L Hgb 8.0 L 9.1 L Hct 24.1 L 27.3 L MCV 93.7 93.4 MCH 31.2 31.2 MCHC 33.3 33.4 RDW 23.4 H 24.0 H Plt Count 438 H 564 H Neut % (Auto) 62.7 60.0 Lymph % (Auto) 16.6 L 20.7 L [place] % (Auto) 15.9 H 14.8 H Eos % (Auto) 3.5 2.5 Baso % (Auto) 1.3 2.0 Neut # (Auto) 3000 2400 Lymph # (Auto) 800 L 800 L [place] # (Auto) 800 600 Eos # (Auto) 200 100 Baso # (Auto) 100 100 RBC Morphology See below Not Reportable Poikilocytosis 1+ H Anisocytosis 3+ H D 2+ H Sodium 137 Potassium 3.7 Chloride 102 Carbon Dioxide 31 BUN 8 L Creatinine 0.47 L Estimated GFR > 60 BUN/Creatinine Ratio 17.0 Glucose 78 L Calcium 8.3 L Magnesium 1.3 L 08/16/22 06:13 WBC RBC Hgb Hct MCV MCH MCHC RDW Plt Count Neut % (Auto) Lymph % (Auto) [place] % (Auto) Eos % (Auto) Baso % (Auto) Neut # (Auto) Lymph # (Auto) [place] # (Auto) Eos # (Auto) Baso # (Auto) RBC Morphology Poikilocytosis Anisocytosis Sodium 139 Potassium 3.1 L Chloride 103 Carbon Dioxide 30 BUN 7 L Creatinine 0.48 L Estimated GFR > 60 BUN/Creatinine Ratio 14.6 Glucose 89 Calcium 8.7 Magnesium 1.3 L [facility] Medical History CAD (coronary artery disease) Claudication of both lower extremities COPD (chronic obstructive pulmonary disease) HTN (hypertension) Hyperlipidemia Surgical History History of heart artery stent Social History household members: none Smoking Status: Current every day smoker alcohol intake: current Assessment & Plan Assessment & Plan narrative: 1. Acute metabolic encephalopathy Appears to be clearing. Patient is more interactive and alert today. He is conversational. However he remains confused and somewhat suspicious of staff and the history we have provided to him. No evidence for alcohol withdrawal at this time. No evidence for infection. CT of the head was negative. I did discontinue opiates yesterday and he is more alert and interactive today. 2. Fall resulting in multiple traumatic fractures Orthopedic surgery felt his fractures were nonoperative.? Patient is allowed to bear 10 lb at most in the right upper extremity.? He can be weight-bearing up to 50 lb on the right lower extremity.? Continue Tylenol for pain. Advised that therapies will be seeing him today and that likely he will require care home facility at discharge. At this time he does not appear to be amenable to that plan. 3. 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 Infrarenal aneurysm with mural thrombus Will need follow-up on an outpatient basis with vascular surgery.? Asymptomatic. 5. Coronary artery disease Continues aspirin, Plavix, lisinopril 6. Hyperlipidemia Continue atorvastatin 7.? Hypertension Continue lisinopril 8.? Electrolyte derangements Patient had hypomagnesemia, hypokalemia, and hypocalcemia.? Potassium is down from 3.7 yesterday to 3 1 today. Magnesium remains low at 1.3. Will give 40 mEq of potassium chloride orally. Will give 2 g IV magnesium sulfate and initiate magnesium oxide as his body stores are likely low in the setting of his alcohol dependence. 9. Anemia Hemoglobin is improving at 9.1 today. He did require 1 unit of packed red blood cells earlier this hospitalization. 10. Alcohol dependence Presently no evidence of alcohol withdrawal.? Will continue to monitor. 11.? Tobacco dependence Will add a nicotine patch. Code status DNR Prophylaxis Held in the setting of acute blood loss anemia requiring transfusion earlier this hospitalization. Disposition Pending Surrogate decision maker Unknown Time Spent With Patient Critical Care time: I spent a total of [] minutes of critical care time on this patient's care today; this time is exclusive of procedural time. Quality VTE Deep Vein Thrombosis/Pulmonary Embolism Present on Admission: Yes
[2022-08-16 09:00] VITALS: BP 148/79; PULSE 91; RESP 16; TEMP 35.9
[2022-08-16] MEDS: MAGNESIUM OXIDE 400 MG TABLET PO ×2 (10:22→21:46)
[2022-08-16] MEDS: CALCIUM CARBONATE 500 MG TAB PO ×2 (10:22→21:45)
[2022-08-16] MEDS: FOLIC ACID 1 MG TABLET PO (10:22)
[2022-08-16] MEDS: lisinopriL 10 MG TABLET PO (10:23)
[2022-08-16] MEDS: POTASSIUM CHLORIDE 20 MEQ TAB 40 MEQ PO (10:25)
[2022-08-16] MEDS: MAGNESIUM SULFATE 2 GM/50 ML PIGGYBACK IV (10:37)
[2022-08-16] MEDS: SUCRALFATE 1 GM TABLET PO ×2 (10:37→22:58)
[2022-08-16] MEDS: MULTIVITAMIN 1 TABLET 1 TAB PO (11:20)
[2022-08-16 19:24] VITALS: BP 164/98; PULSE 85; RESP 17; TEMP 36; O2SAT 95
[2022-08-16] MEDS: OXYCODONE IR 10 MG TABLET PO (21:45)
[2022-08-16] MEDS: LORazepam 2 MG/ML INJ 0.5 MG IV (22:54)
[2022-08-16] MEDS: SODIUM CHLORIDE 0.9% FLUSH 10 ML IV (22:58)
[2022-08-17] MEDS: KETOROLAC 30 MG/ML VIAL 15 MG IV ×2 (01:22→06:55)
[2022-08-17] MEDS: SODIUM CHLORIDE 0.9% 1,000 ML 50 ML IV (01:24)
[2022-08-17 03:30] VITALS: BP 161/83; PULSE 70; RESP 17; TEMP 36; O2SAT 95
--- NOTE | 2022-08-17 05:00 | PC.NURSE ---
Pt calling out frequently while awake. When this nurse enters the room patient is able to respond to questions and follow commands. Speech is garbled and somewhat rambling. Pt received ativan 0.5 mg IV and oxycodone 10 mg PO during shift and tolerated well.
[2022-08-17 06:47] LABS: Basophils Absolute Auto 100 /uL (0-100); Basophils Percent Auto 1.9 % (0-2); Eosinophils Absolute Auto 100 /uL (0-450); Eosinophils Percent Auto 3.1 % (2-4); Hematocrit 30.1 % (41-53); Hemoglobin 9.9 g/dL (13.5-17.5); Lymphocytes Absolute Auto 800 /uL (1100-4500); Lymphocytes Percent Auto 16.9 % (25-40); Mean Corpuscular Volume 94.1 fL (80-100); Monocytes Absolute Auto 700 /uL (0-900); Monocytes Percent Auto 14.6 % (3-14); Neutrophils Absolute Auto 3000 /uL (1500-7000); Neutrophils Percent Auto 63.5 % (50-75); Platelet Count 623 X10^3/uL (150-400); Red Cell Distribution Width 23.8 % (11.6-14.8); White Blood Cell Count 4.8 X10^3/uL (4.5-11.0)
[2022-08-17 06:53] LABS: Add Manual Diff / Slide Review SLIDE REVIEW
[2022-08-17] MEDS: SUCRALFATE 1 GM TABLET PO ×2 (06:55→21:57)
[2022-08-17 06:56] LABS: Blood Urea Nitrogen 7 mg/dL (9-20); Carbon Dioxide 27 mmol/L (22-32); Chloride 107 mmol/L (98-107); Estimated Glomerular Filt Rate > 60 mL/min (>60); Glucose 82 mg/dL (80-110); HEMOLYSIS < 15 (0-50); Magnesium 1.7 mg/dL (1.6-2.3); Potassium 3.2 mmol/L (3.4-5.1); Sodium 140 mmol/L (137-145)
[2022-08-17 07:13] LABS: Anisocytosis 2+
[2022-08-17 08:19] VITALS: BP 177/73; PULSE 77; RESP 16; O2SAT 95
[2022-08-17] MEDS: MAGNESIUM OXIDE 400 MG TABLET PO ×2 (10:13→21:57)
[2022-08-17] MEDS: POTASSIUM CHLORIDE 20 MEQ TAB 40 MEQ PO ×2 (10:13→17:48)
[2022-08-17] MEDS: FOLIC ACID 1 MG TABLET PO (10:13)
[2022-08-17] MEDS: ACETAMINOPHEN 325 MG TABLET 975 MG PO (10:14)
[2022-08-17] MEDS: MULTIVITAMIN 1 TABLET 1 TAB PO (10:14)
[2022-08-17] MEDS: lisinopriL 10 MG TABLET PO (10:14)
[2022-08-17] MEDS: CALCIUM CARBONATE 500 MG TAB PO ×2 (10:14→21:57)
--- NOTE | 2022-08-17 10:51 | PC.NURSE ---
Addendum entered by Lelo Adair R.N. 08/17/22 18:35: Patient just changed. He had a bowel movement. Repositioned up farther in bed, patient ate well at dinner tonight and he fed himself again. Up in the chair for the first time and he was a 2 person pivot to chair. Physical therapy worked with patient but was not able to do a lot with him. He is 50% weight bearing on his hip. Original Note: Assess- Patient is alert and oriented x1 to 2. He is doing much better and even fed himself this morning. He has multiple bruises all over his body and fx ribs and a clavicle. He denies pain and is incontinent in his brief of urine. Visiting with his friend now and drinking his coffee.
--- NOTE | 2022-08-17 11:58 | P.PN_ITS ---
Subjective Subjective Interval history: 77-year-old male with underlying coronary artery disease prior left total hip arthroplasty, prior clavicular fracture, COPD, tobacco dependence, and alcohol dependence who is presently hospital day 8.? He was admitted with mild subacute T3 compression fracture, age-indeterminate T8 fracture, severe T12 compression fracture, distal right clavicular fracture, obturator and acetabular fractures, and was incidentally found to have infrarenal aneurysm with mural thrombus, h igh-grade celiac artery stenosis, and right SFA occlusion.? Hospital course has been complicated by encephalopathy of unclear etiology.? Patient his pain is improving. He is asking to feed himself this morning. Nursing notes that he is also been asking for the urinal and seems more aware of his need to void. He asked me why he falling. He does admit that he takes very poor care of himself at baseline. He is waist to the care management team that he does not wish to discharge to a skilled nurse facility. Exam Vital Signs (past 8 hours): - 08/17/22 08:19 Pulse Rate 77 Respiratory Rate 16 Blood Pressure 177/73 H Pulse Oximetry 95 Fraction of Inspired Oxygen 28 SaO2/FiO2 Ratio 350 Oxygen Delivery Method Room Air Oxygen Flow Rate 0 Narrative Exam Narrative: GEN: Disheveled elderly male, alert, oriented x2, NAD HEENT:NC, Face symmetric CHEST: Respiratory excursions symmetric, CTAB CV: RRR, no M/R/G ABD: Soft, NT/ND, BT present in all 4 quadrants, no organomegaly or masses EXTR: warm, well perfused, no C/C/E SKIN: warm and dry, no rash NEURO:? Nonfocal, more cooperative today Objective Labs 08/17/22 05:57 08/17/22 05:57 Labs: Laboratory Results - last 24 hr 08/17/22 08/17/22 05:57 05:57 WBC 4.8 RBC 3.20 L Hgb 9.9 L Hct 30.1 L MCV 94.1 MCH 31.0 MCHC 33.0 RDW 23.8 H Plt Count 623 H Neut % (Auto) 63.5 Lymph % (Auto) 16.9 L [place] % (Auto) 14.6 H Eos % (Auto) 3.1 Baso % (Auto) 1.9 Neut # (Auto) 3000 Lymph # (Auto) 800 L [place] # (Auto) 700 Eos # (Auto) 100 Baso # (Auto) 100 RBC Morphology Not Reportable Anisocytosis 2+ H Sodium 140 Potassium 3.2 L Chloride 107 Carbon Dioxide 27 BUN 7 L Creatinine 0.50 L Estimated GFR > 60 BUN/Creatinine Ratio 14.0 Glucose 82 Calcium 9.0 Magnesium 1.7 PFSH Medical History CAD (coronary artery disease) Claudication of both lower extremities COPD (chronic obstructive pulmonary disease) HTN (hypertension) Hyperlipidemia Surgical History History of heart artery stent Social History household members: none Smoking Status: Current every day smoker alcohol intake: current Assessment & Plan Assessment & Plan narrative: 1. Acute metabolic encephalopathy Appears to be approaching his baseline.? Patient is more appropriate and cooperative. No evidence for withdrawal. Negative CT this admission. No acute infection. Suspect this was multifactorial from alcohol withdrawal earlier during his hospitalization and opiate effect more recently. 2. Fall resulting in multiple traumatic fractures Orthopedic surgery felt his fractures were nonoperative.? Patient is allowed to bear 10 lb at most in the right upper extremity.? He can be weight-bearing up to 50 lb on the right lower extremity.? Continue Tylenol for pain.? PT reconsulted today. 3. 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 Infrarenal aneurysm with mural thrombus Will need follow-up on an outpatient basis with vascular surgery.? Asymptomatic. 5. Coronary artery disease Continues aspirin, Plavix, lisinopril 6. Hyperlipidemia Continue atorvastatin 7.? Hypertension Blood pressures have been a bit more hypertensive for the last couple of days. Will increase lisinopril to 20 mg daily. 8.? Electrolyte derangements Patient had hypomagnesemia, hypokalemia, and hypocalcemia.? Potassium remains low at 3.2.? Magnesium is improved at 1.7.? Will give 40 mEq of potassium chloride twice today..? Continue magnesium oxide. Recheck labs in the morning. 9. Anemia Hemoglobin is improved/stable today at 9.9.? He did require 1 unit of packed red blood cells earlier this hospitalization. 10. Alcohol dependence Presently no evidence of alcohol withdrawal.? Will continue to monitor. 11.? Tobacco dependence Continue nicotine patch.? Code status DNR Prophylaxis Held in the setting of acute blood loss anemia requiring transfusion earlier this hospitalization. Disposition Pending. I will have PT reassessed today. Suspect he should discharge to a halfway facility. He is not receptive at this time. I have asked for a slums assessment to be performed to get a better sense of his competency. Surrogate decision maker Unknown Time Spent With Patient Critical Care time: I spent a total of [] minutes of critical care time on this patient's care today; this time is exclusive of procedural time. Quality VTE Deep Vein Thrombosis/Pulmonary Embolism Present on Admission: Yes
--- NOTE | 2022-08-17 14:46 | CM.DPC ---
DCP SNF Planning: Per MD, pt making medical progress and more alert and oriented today, now appropriate to work with PT/OT and will ask OT to get SLUMS on pt and orders placed but no PT/OT available until tomorrow Thursday. Per RN, pt pleasant and cooperative today and feeding himself and friend in visiting. SW met bedside with pt and explained role and pt able to participate in goal directed discussion and confirms currently he is requiring more assist than baseline and not safe for d/c directly home from the hospital and is agreeable with SNF. SW provided the SNF Choice list via paper and Ipad and pt currently does not have a SNF preference yet at this time and aware will likely be based on which SNF could accept him. SARITHA called following SNFs: [facility]- had pt last year and pt was a great pt and A&O and his Dtr was very involved. [facility] would like to accept pt but need confirmation that Dtr is aware and want to see pt work with PT/OT tomorrow. [facility]. [facility] previously done. Plan: SW to follow closely tomorrow Mon AM to try to contact Dtr and PT/OT ordered and to work with pt tomorrow Mon. BRENDA Cavazos
--- NOTE | 2022-08-17 16:00 | PT.IIE ---
Current Diagnoses Anemia, unspecified (08/09/22) Infrarenal abdominal aortic aneurysm, without rupture (08/09/22) Unspecified fracture of right acetabulum, initial encounter for closed fracture (08/09/22) Fracture of unspecified parts of lumbosacral spine and pelvis, initial encounter for closed fracture (08/09/22) Fracture of unspecified part of unspecified clavicle, initial encounter for closed fracture (08/09/22) Fracture of unspecified part of neck of left femur, initial encounter for closed fracture (08/09/22) Surgical History (Last Reviewed 08/13/22 @ 20:50 by Estuardo Cheney DO) History of heart artery stent Medical History (Last Reviewed 08/13/22 @ 20:50 by Estuardo Cheney DO) CAD (coronary artery disease) Claudication of both lower extremities COPD (chronic obstructive pulmonary disease) HTN (hypertension) Hyperlipidemia Physical Therapy Inpatient Evaluation/Re-Eval M1 PT/OT-IP Prior Functional Status Start: 08/11/22 08:50 Freq: NEEDED Status: Active Protocol: Document 08/17/22 13:58 AMB (Rec: 08/17/22 14:29 AMB [id number]) Medical Review Prior Functional Status Medical History Reviewed Yes Mobility and Gait Was getting home health PT. Reports he has a walker (from his description it sounds like a 4WW) Social History Household Members none Living Arrangements House Number of Floors (Floors) One Floor Number of Stairs To Enter/Railing? 1 step to enter with a railing Home Equipment Four Wheel Walker M2 PT-IP Current Condition Start: 08/11/22 08:50 Freq: NEEDED Status: Active Protocol: Document 08/17/22 13:58 AMB (Rec: 08/17/22 14:29 AMB [id number]) Physical Therapy Current Condition Current Condition Evaluation Date 08/17/22 Treatment Diagnosis GLF; R clavicle fx; R pubic rami and acetabular fx Onset Date 08/08/22 M3 PT-IP Subjective Start: 08/11/22 08:50 Freq: NEEDED Status: Active Protocol: Document 08/17/22 13:58 AMB (Rec: 08/17/22 14:29 AMB [id number]) Subjective Physical Therapy Visit Type Type Initial Evaluation Visit Start Time 13:15 Visit Stop Time 14:00 Total Visit Minutes 45 Physical Therapy Visit Comments Patient Comments Pt willing to get up, does have some pain (has a very difficult time giving a pain rating as far as cognitive processing goes). Therapy Pain Assessment Pain When Pain Assessed At Rest Pain Present Pain Present Pain Reported M4 PT-IP Mobility and Gait Start: 08/11/22 08:50 Freq: NEEDED Status: Active Protocol: Document 08/17/22 13:58 AMB (Rec: 08/17/22 14:29 AMB [id number]) PT-Bed Mobility Assessment Rolling Type of Rolling Log Rolling,Roll to Left Level of Assist Minimal Assistance Supine to Sit Supine to Sit Moderate Assistance,Head of Bed Elevated Sit to Supine Sit to Supine Moderate Assistance,1 Person Assistance,Bedrails PT-Transfer Assessment Sit to and From Stand Sit to and from Stand Minimal Assistance,1 Person Assistance,Use of Upper Extremities Equipment Transfer Assistive Device Front Wheeled Walker Transfers Transfer Destination Bed Transfer Technique Stand Step Pivot Transfer Ability Level of Assist Minimal Assistance,1 Person Assistance,Use of Upper Extremities Comments Mobility Comments Pt was lying in bed when PT entered. Discussed weightbearing status with patient. Pt was aware that he had fractures but did not seem to have retained that he was only partial weightbearing through the R arm and leg. Updated whiteboard to reflect this. Very challenging for pt to perform bed mobility while maintaining partial weightbearing, scale placed on bed for pt to practice feeling what 10# of weightbearing feels like. Pt min/mod with all transfers, see above. Gait Assessment Comments Gait Comments attempted ambulation with FWW but pt unable to maintain WB restrictions M5 PT-IP Objective Assessments Start: 08/11/22 08:50 Freq: NEEDED Status: Active Protocol: Document 08/17/22 13:58 AMB (Rec: 08/17/22 14:29 AMB [id number]) Orientation Orientation/Cognition Level of Alertness Confusional State Strength Upper Extremity Strength Assessment Right Impaired Lower Extremity Strength Assessment Right Impaired M6 PT-IP Treatment Start: 08/11/22 08:50 Freq: NEEDED Status: Active Protocol: Document 08/17/22 13:58 AMB (Rec: 08/17/22 14:29 AMB [id number]) Physical Therapy Treatment Education Education Provided Weight Bearing Status,Safety M7 PT-IP Assessment and Plan Start: 08/11/22 08:50 Freq: NEEDED Status: Active Protocol: Document 08/17/22 13:58 AMB (Rec: 02/26/23 14:29 AMB [id number]) PT Summary Assessment and Plan Potential Rehabilitation Potential Fair Status of Condition at Evaluation Evolving Summary Impairments Pain,Strength,Balance,Bed Mobility,Transfers,Gait, Activity Tolerance Assessment Summary Yazan continues to have weightbearing restrictions due to his clavicular and pubic and acetabular fractures on the right. This makes his mobility very challenging. His labs and overall awareness have improved significantly over the last week, so PT orders were put back in. He required ModA for most bed mobility and was unable to ambulate while maintaining 10 pound lifting restriction for the R UE and 50 pound for the R LE. We did utilize a scale so that the patient could feel what 10 and 50 pounds feel like for the respective limbs. Given his weightbearing restriction and that he lives alone and was already getting home health prior to his most recent fall, he would best be served by going to SNF when he is medically stable. Goals Bed Mobility Goal Minimal Assistance Transfer Goal Minimal Assistance Gait Goal Minimal Assistance,Front Wheel Walker,Morris Walker Gait Distance 50 Other Goals 1 stair with a railing if pt d /c's home with CGA. Days to Meet Goals 10 Frequency of Treatment Frequency Of Treatment Once a Day Treatment Plan Physical Therapy Treatment Plan Bed Mobility Training,Transfer Training,Gait Training, Therapeutic Exercise,Balance Retraining,Discharge Planning, Neuromuscular Re-ed Other Recommendations and Next Treatment Transfers/bed mobility while Focus understanding weightbearing restrictions Weight Bearing Status Weight Bearing Status Partial Weight Bearing Allowed Weight Bearing Amount (enter % 50# R LE; 10# L LE or #) (%) Recommendations To Nursing Amount of Assist Needed 1 Person Assist Discharge Recommendations PT Discharge Recommendations SNF Rehab Transportation Needs at Discharge Wheelchair/Cabulance
[2022-08-17 19:30] VITALS: BP 128/65; PULSE 81; RESP 19; TEMP 36; O2SAT 96
[2022-08-17] MEDS: SENNOSIDES 8.6 MG TABLET 17.2 MG PO (21:57)
[2022-08-17] MEDS: SODIUM CHLORIDE 0.9% FLUSH 10 ML IV (21:57)
[2022-08-18] MEDS: ACETAMINOPHEN 325 MG TABLET 975 MG PO ×2 (01:26→08:53)
[2022-08-18 03:45] VITALS: BP 132/86; PULSE 83; RESP 18; TEMP 36.2; O2SAT 95
[2022-08-18 06:43] LABS: Add Manual Diff / Slide Review NO; Basophils Absolute Auto 200 /uL (0-100); Basophils Percent Auto 2.4 % (0-2); Eosinophils Absolute Auto 100 /uL (0-450); Eosinophils Percent Auto 1.8 % (2-4); Hematocrit 29.3 % (41-53); Hemoglobin 9.4 g/dL (13.5-17.5); Lymphocytes Absolute Auto 1200 /uL (1100-4500); Lymphocytes Percent Auto 17.1 % (25-40); Mean Corpuscular Hemoglobin 30.4 PG (26-34); Mean Corpuscular Volume 94.8 fL (80-100); Monocytes Absolute Auto 900 /uL (0-900); Neutrophils Absolute Auto 4400 /uL (1500-7000); Neutrophils Percent Auto 65.7 % (50-75); Platelet Count 649 X10^3/uL (150-400); Red Cell Distribution Width 23.7 % (11.6-14.8); White Blood Cell Count 6.7 X10^3/uL (4.5-11.0)
[2022-08-18 06:52] LABS: BUN Creatinine Ratio 13.5 (6-22); Blood Urea Nitrogen 7 mg/dL (9-20); Carbon Dioxide 26 mmol/L (22-32); Chloride 109 mmol/L (98-107); Estimated Glomerular Filt Rate > 60 mL/min (>60); Glucose 94 mg/dL (80-110); HEMOLYSIS < 15 (0-50); Magnesium 1.6 mg/dL (1.6-2.3); Sodium 139 mmol/L (137-145)
[2022-08-18 07:43] LABS: Anisocytosis 2+; Poikilocytosis 1+
[2022-08-18] MEDS: SUCRALFATE 1 GM TABLET PO ×2 (08:41→12:00)
[2022-08-18] MEDS: MAGNESIUM OXIDE 400 MG TABLET PO (08:52)
[2022-08-18] MEDS: CALCIUM CARBONATE 500 MG TAB PO (08:52)
[2022-08-18] MEDS: MULTIVITAMIN 1 TABLET 1 TAB PO (08:52)
[2022-08-18] MEDS: FOLIC ACID 1 MG TABLET PO (08:52)
[2022-08-18] MEDS: NICOTINE 7 MG PATCH TOP (08:53)
[2022-08-18 08:59] VITALS: BP 177/80; PULSE 84
[2022-08-18] MEDS: lisinopriL 10 MG TABLET 20 MG PO (08:59)
[2022-08-18 09:00] VITALS: BP 177/80; PULSE 76; RESP 19; TEMP 36.3; O2SAT 96
[2022-08-18] MEDS: SODIUM CHLORIDE 0.9% FLUSH 10 ML IV (09:01)
--- NOTE | 2022-08-18 09:15 | PM.DS.1 ---
History of Present Illness History of Present Illness Date Patient Seen: 08/18/22 Time Patient Seen: 23:00 Chief complaint: GLF Narrative: Yazan Anderson is a 77 y.o. 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 He has a prior clavicle fracture and apparently was unable to get up or bear weight due to severe right hip pain. Currently he states his pain is a 10/10, particularly when moved, denies headache, nausea or vomiting. He is unable to recall why or how he fell. Head CT which indicated no acute process, cervical spine CT which indicated mild subacute appearing fracture of T3, T8 fracture is of uncertain age, severe T12 compression and [id number] LV compression fractures do not appear significantly changed from MRI on 04/22/2022. Notes post surgical left proximal femoral fracture fixation. X-rays indicated right distal clavicle fracture which is questionable if it is old or new patient's seems have known about it x-ray for pelvis was negative however CT does indicate an obturator ring fracture along with nondisplaced acetabular fracture.??Patient has a displaced right distal clavicle fracture he does have some bruising present so I suspect this is new although he seems to have known about it from before.? Imaging does show obturator ring and nondisplaced acetabular fracture some presacral edema and multiple prior compression and rib fractures majority of which appear not to be new but he does have some chest pain and may have some new rib fracture as well.? Patient's main complaint is pain in his hip.? Patient was found to have infrarenal aneurysm incidentally. He denies any abdominal pain but has had possible syncopal episodes with anemia. 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 Patient has dopplerable pulses bilaterally he states he is always had a hard time having people find his pulses in his feet.? He is slightly shaky he states that is normal for him he denies any alcohol withdrawals although he does indicate that he drinks alcohol daily.? He is noted to be mildly anemic with hemoglobin 8.9 and hematocrit 26.2 previously 1 year ago his hemoglobin 7.9 and hematocrit 22.9.? Electrolytes are within normal limits creatinine 0.7 today, bilirubin is noted to be mildly elevated at 1.4 with AST 81 ALT 62 and alk-phos 130 no significant right upper quadrant pain.? Procalcitonin mildly elevated at 0.58 without obvious sign of infection.? Viral panel, COVID/influenza and RSV are negative.? Discharge Providers Provider Date of admission: 08/09/22 10:15 Discharge Date: 08/18/22 Primary care physician: Jayleen Soto MD Consults: 08/07/22 22:13 Consult to Occupational Therapy Evaluate & Treat Comment: fall, multiple fractures Physician Instructions: Evaluate and treat Consult to Physical Therapy Evaluate & Treat Comment: fall, multiple fractures Physician Instructions: Evaluate and Treat 08/11/22 10:23 Consult to Dietitian, Adult Routine Comment: Reason For Exam: malnourished Consult to Physical Therapy Evaluate & Treat Comment: Physician Instructions: Evaluate and Treat 08/17/22 11:58 Consult to Occupational Therapy Evaluate & Treat Comment: SLUMS assessment Physician Instructions: Evaluate and treat 08/17/22 12:03 Consult to Physical Therapy Evaluate & Treat Comment: Physician Instructions: Evaluate and Treat Discharge provider: Dequan Molina DO Summary Hospital Course Discharge Diagnosis: 1. Acute metabolic encephalopathy, resolving Appears to be approaching his baseline.? Patient is more appropriate and cooperative.? No evidence for withdrawal.? Negative CT this admission.? No acute infection.? Suspect this was multifactorial from alcohol withdrawal earlier during his hospitalization and opiate effect more recently. 2. Fall resulting in multiple traumatic fractures Orthopedic surgery felt his fractures were nonoperative.? Patient is allowed to bear 10 lb at most in the right upper extremity.? He can be weight-bearing up to 50 lb on the right lower extremity.? Continue Tylenol for pain.? PT reconsulted today. 3. 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 Infrarenal aneurysm with mural thrombus Will need follow-up on an outpatient basis with vascular surgery.? Asymptomatic. 5. Coronary artery disease Continues aspirin, Plavix, lisinopril 6. Hyperlipidemia Continue atorvastatin 7.? Hypertension Blood pressures have been a bit more hypertensive for the last couple of days.? Will increase lisinopril to 20 mg daily. 8.? Electrolyte derangements Patient had hypomagnesemia, hypokalemia, and hypocalcemia.? Potassium remains low at 3.2.? Magnesium is improved at 1.7.? Will give 40 mEq of potassium chloride twice today..? Continue magnesium oxide.? Recheck labs in the morning. 9. Anemia Hemoglobin is improved/stable today at 9.9.? He did require 1 unit of packed red blood cells earlier this hospitalization. 10. Alcohol dependence Presently no evidence of alcohol withdrawal.? Will continue to monitor. 11.? Tobacco dependence Continue nicotine patch.? Hospital Course: 77-year-old male with underlying coronary artery disease prior left total hip arthroplasty, prior clavicular fracture, COPD, tobacco dependence, and alcohol dependence who is presently hospital day 8.? He was admitted with mild subacute T3 compression fracture, age-indeterminate T8 fracture, severe T12 compression fracture, distal right clavicular fracture, obturator and acetabular fractures, and was incidentally found to have infrarenal aneurysm with mural thrombus, high-grade celiac artery stenosis, and right SFA occlusion.? Hospital course has been complicated by encephalopathy of unclear etiology.?This resolved during admission. His fractures and deconditioning required SNF rehab. Time Spent with Patient Time spent: Greater than 30 minutes Exam Vital Signs (past 8 hours): - 08/18/22 03:45 08/18/22 08:59 Temperature 97.1 F L Pulse Rate 83 84 Respiratory Rate 18 Blood Pressure 132/86 177/80 H Pulse Oximetry 95 Oxygen Flow Rate 0 Fraction of Inspired Oxygen 28 SaO2/FiO2 Ratio 350 Oxygen Delivery Method Room Air Oxygen Flow Rate 0 Narrative Exam Narrative: GEN: Disheveled elderly male, alert, oriented x2, NAD HEENT:NC, Face symmetric CHEST: Respiratory excursions symmetric, CTAB CV: RRR, no M/R/G ABD: Soft, NT/ND, BT present in all 4 quadrants, no organomegaly or masses EXTR: warm, well perfused, no C/C/E SKIN: warm and dry, no rash NEURO:? Nonfocal, more cooperative today Objective Labs 08/18/22 06:18 08/18/22 06:18 Labs: Laboratory Results - last 24 hr 08/18/22 08/18/22 06:18 06:18 WBC 6.7 RBC 3.10 L Hgb 9.4 L Hct 29.3 L MCV 94.8 MCH 30.4 MCHC 32.0 RDW 23.7 H Plt Count 649 H Neut % (Auto) 65.7 Lymph % (Auto) 17.1 L Randolph % (Auto) 13.0 Eos % (Auto) 1.8 L Baso % (Auto) 2.4 H Neut # (Auto) 4400 Lymph # (Auto) 1200 Randolph # (Auto) 900 Eos # (Auto) 100 Baso # (Auto) 200 H RBC Morphology See below Poikilocytosis 1+ H Anisocytosis 2+ H Sodium 139 Potassium 4.0 Chloride 109 H Carbon Dioxide 26 BUN 7 L Creatinine 0.52 L Estimated GFR > 60 BUN/Creatinine Ratio 13.5 Glucose 94 Calcium 9.0 Magnesium 1.6 PFSH Medical History CAD (coronary artery disease) Claudication of both lower extremities COPD (chronic obstructive pulmonary disease) HTN (hypertension) Hyperlipidemia Surgical History History of heart artery stent Social History household members: none Smoking Status: Current every day smoker alcohol intake: current Discharge Plan Discharge Plan Patient Disposition: SNF Discharge orders & Medications Prescriptions: New magnesium oxide 400 mg (241.3 mg magnesium) Tablet 400 mg PO BID Qty: 60 0RF nicotine 7 mg/24 hr Patch 24 Hour 7 mg topical DAILY Qty: 30 0RF Continued aspirin 81 MG tablet,delayed release (DR/EC) 81 mg PO QDAY Qty: 0 atorvastatin 75 mg PO BEDTIME sennosides [senna] 8.6 mg Tablet 17.2 mg PO BEDTIME Qty: 60 0RF cyanocobalamin (vitamin B-12) [Vitamin B-12] 100 mcg Tablet 100 mcg PO DAILY Qty: 60 0RF polyethylene glycol 3350 17 gram Powder In Packet 17 gm PO BID Qty: 60 0RF sucralfate 1 gram Tablet 1 gm PO ACHS Qty: 120 0RF famotidine [Pepcid AC] 20 mg Tablet 40 mg PO BID Qty: 60 0RF ascorbic acid (vitamin C) [Vitamin C] 500 mg Tablet 500 mg PO BID Qty: 60 0RF docusate sodium 100 mg Capsule 100 mg PO BID Qty: 60 0RF folic acid 1 mg Tablet 1 mg PO DAILY Qty: 60 0RF cholecalciferol (vitamin D3) [Vitamin D3] 10 mcg (400 unit) Tablet 800 unit PO DAILY Qty: 60 0RF Prenatabs Rx 29 mg iron- 1 mg Tablet 1 tab PO DAILY Qty: 60 0RF clopidogrel [Plavix] 75 mg tablet 75 mg PO DAILY Qty: 30 0RF oxycodone 5 mg Tablet 5 mg PO Q6H PRN (Reason: Pain, Moderate (4-6)) Qty: 10 0RF Changed lisinopril 10 MG tablet 20 mg PO QDAY Qty: 90 1RF Follow up/Referrals: Jayleen Soto MD [Primary Care Provider] - 2 Weeks Discharge Health Status Multidrug resistant organism: No MDRO Diet/Activity/Treatments Diet: Low-sodium Liquid consistency: Normal/Thin Food texture: Regular Special Rehabilitation Services Reason for rehabilitation: Recovery r/t decondition Rehab type: Physical therapy and Occupational therapy Restrictions to mobility: Patient is allowed to bear 10 lb at most in the right upper extremity. He can be weight-bearing up to 50 lb on the right lower extremity. Visit Report/Discharge Packet Stand Alone Forms: Patient Portal/API Discharge Data Primary Care Provider: Jayleen Soto Quality VTE Deep Vein Thrombosis/Pulmonary Embolism Present on Admission: Yes
--- NOTE | 2022-08-18 10:26 | CM.DPC ---
DCP Discharge SNF Per MD, pt medically stable to d/c to SNF today. SW received a return call from pt's Dtr Gia [phone] and SW provided update and Dtr is in full agreement of SNF and hopeful for SNF in town so pt's good friend supports Buster and his can continue visiting and providing support. Dtr states she comes back from [facility] the first part of September and will keep herself available by phone during that time in case SNF needs to reach out to her. SW met bedside with pt and he was even more alert and oriented from yesterday and remains in agreement and SW updated on Dtr stating she is thinking of him and will reach out to talk to him later. SW spoke to [facility] regarding discussion with pt and pt's Dtr and that pt was able to work with PT yesterday and again this morning. [facility] confirms they can accept and transport around 1200 and provided nurse report number. SW updated RN and requested updated COVID swab and updated MD who completed discharge. SW faxed d/c summ, signed med list, scripts, PASRR, orders to [facility] to review and awaiting updated COVID swab results. SW called Dtr Gia and updated and she is very appreciative and SW called friend Buster and left msg with update on pt d/c to [facility] today so he can keep visiting pt and providing support. Plan: Patient to d/c to [facility] today via facility van around 1200 before return home. BRENDA Cavazos
[2022-08-18] MEDS: LOPERAMIDE 2 MG CAPSULE PO (10:55)
--- NOTE | 2022-08-18 10:59 | OT.IP.EVAL ---
Current Diagnoses Anemia, unspecified (08/09/22) Infrarenal abdominal aortic aneurysm, without rupture (08/09/22) Unspecified fracture of right acetabulum, initial encounter for closed fracture (08/09/22) Fracture of unspecified parts of lumbosacral spine and pelvis, initial encounter for closed fracture (08/09/22) Fracture of unspecified part of unspecified clavicle, initial encounter for closed fracture (08/09/22) Fracture of unspecified part of neck of left femur, initial encounter for closed fracture (08/09/22) Past Medical History (Last Reviewed 08/13/22 @ 20:50 by Estuardo Cheney DO) CAD (coronary artery disease) Claudication of both lower extremities COPD (chronic obstructive pulmonary disease) HTN (hypertension) Hyperlipidemia Surgical History (Last Reviewed 08/13/22 @ 20:50 by Estuardo Cheney DO) History of heart artery stent Occupational Therapy Inpatient Evaluation/Re-Eval M1 PT/OT-IP Prior Functional Status Start: 08/11/22 08:50 Freq: NEEDED Status: Complete Protocol: Document 08/17/22 13:58 AMB (Rec: 08/17/22 14:29 AMB [id number]) Medical Review Prior Functional Status Medical History Reviewed Yes Mobility and Gait Was getting home health PT. Reports he has a walker (from his description it sounds like a 4WW) Social History Household Members none Living Arrangements House Number of Floors (Floors) One Floor Number of Stairs To Enter/Railing? 1 step to enter with a railing Home Equipment Four Wheel Walker M1 PT/OT-IP Prior Functional Status Start: 08/18/22 12:04 Freq: NEEDED Status: Active Protocol: Document 08/18/22 12:04 [facility] (Rec: 08/18/22 12:17 [facility] [id number]) Medical Review Prior Functional Status Medical History Reviewed Yes Mobility and Gait Was getting home health PT. Reports he has a walker (from his description it sounds like a 4WW) Activities of Daily Living and IADL's Pt states able to care for himself prior to coming to the hospital. Social History Household Members none Living Arrangements House Number of Floors (Floors) One Floor Number of Stairs To Enter/Railing? 1 step to enter with a railing Home Equipment Four Wheel Walker M2 OT-IP Current Condition Start: 08/18/22 12:04 Freq: Status: Active Protocol: Document 08/18/22 12:04 [facility] (Rec: 08/18/22 12:17 [facility] [id number]) Occupational Therapy Current Condition Current Condition Evaluation Date 08/18/22 Treatment Diagnosis Right Acetabulumfx, right distal clavicle fx Diagnosis Onset Date 08/09/22 Weight Bearing Status Weight Bearing Status Partial Weight Bearing Allowed Weight Bearing Amount (enter % 50lb weight to RLE, and 10lbs or #) (%) to right UE. Right arm in figure 8 sling for comfort. M3 OT- IP Subjective and Pain Start: 08/18/22 12:04 Freq: Status: Active Protocol: Document 08/18/22 12:04 [facility] (Rec: 08/18/22 12:17 [facility] [id number]) OT- Subjective Occupational Therapy Visit Type Type Initial Evaluation Visit Start Time 09:00 Visit Stop Time 10:59 Total Visit Minutes 54 Notes Pt seen for split treatment of 900-915, and [id number]. Occupational Therapy Visit Comments Patient Comments Pt agreed to get up. Patient/Caregiver Goals TO get better. OT Pain Assessment Pain When Pain Assessed During Mobility Pain Present Pain Present Pain Reported Location Generalized Intensity 7 M4 OT- IP ADL's Start: 08/18/22 12:04 Freq: Status: Active Protocol: Document 08/18/22 12:04 [facility] (Rec: 08/18/22 12:17 [facility] [id number]) OT [id number] Comments OT Self-Feeding Comments Pt needing set-up assist for tray, right arm supported. OT ADL-Grooming Comments OT Grooming Comments Not performed. OT ADL-Oral Care Comments Oral Care Comments Pt states already rinsed his mouth out before. OT ADL-Dressing General Eval Lower Body Dressing Ability Total Assistance Areas Needing Assistance Underpants/Brief,Socks OT ADL-Toileting General Evaluation Toileting Ability Total Assistance Areas Needing Assistance Manage Clothing,Perform Perineal Hygiene Comments OT Toileting Comments Total assist for hygiene and brief needs while in bed. OT ADL-Bathing Comments OT Bathing Comments Sponge bath more appropriate at this time. M5 OT- IP IADL's Start: 08/18/22 12:04 Freq: Status: Active Protocol: Document 08/18/22 12:04 [facility] (Rec: 08/18/22 12:17 [facility] [id number]) OT-Instrumental Activities of Daily Living Deficits IADL Deficits Identified Deficits Home Safety Awareness Awareness of Need for Assistance at Home Good Awareness M6 OT- IP Functional Cognition Start: 08/18/22 12:04 Freq: Status: Active Protocol: Document 08/18/22 12:04 [facility] (Rec: 08/18/22 12:17 [facility] [id number]) Cognitive Factors Limiting Selfcare Function Cognitive Ability Level of Alertness Alert Patient Orientation Name,Place,Situation Attention Span Ability Capable of Focused Attention, Capable of Sustained Attention Ability to Follow Commands Able to Follow One Step Commands Cognitive Comments Cognitive Assessment Comments Pt able to follow commands for mobility and ADL needs. M7 OT- IP Mobility and Balance Start: 08/18/22 12:04 Freq: Status: Active Protocol: Document 08/18/22 12:04 [facility] (Rec: 08/18/22 12:17 [facility] [id number]) OT- Bed Mobility Assessment Supine to Sit Supine to Sit Assist Maximum Assistance,Head of Bed Elevated Sit to Supine Sit to Supine Assist Maximum Assistance,Head of Bed Elevated Scooting Scooting to Edge of Bed Maximum Assistance OT-Transfer Assessment Transfers Transfer Ability Maximum Assistance,1 Person Assistance Technique Transfer Destination Bed,Chair Transfer Technique Squat Pivot Devices Transfer Assistive Devices None,Gait Belt Comments Mobility Comments MAXA X1 to help get his legs to the edge of the bed and get his trunk upright. MAX AX 1 to squat pivot to the left . At this time sarahi would be best to use due to pt's 50lb weight bearing to RLE and 10 lbs for RUE. Suggested to nursing , 2 person to help stand pt and switch the recliner out to the wc. OT- Balance Assessment Sitting Balance and Reactions Static Sitting Balance Ability Poor Dynamic Sitting Balance Ability Poor M8 OT- IP Objective Assessments Start: 08/18/22 12:04 Freq: Status: Active Protocol: Document 08/18/22 12:04 [facility] (Rec: 08/18/22 12:17 [facility] [id number]) OT Gross Range of Motion Upper Extremity Range of Motion Assessment Right Impaired OT Strength Upper Extremity Strength Assessment Right Impaired Comments Strength Comments RUE NT due to clavicle fracture. LUE 4/5 throughout M9 OT- IP Assessment and Plan Start: 08/18/22 12:04 Freq: Status: Active Protocol: Document 08/18/22 12:04 [facility] (Rec: 08/18/22 12:17 [facility] [id number]) OT Summary Assessment and Plan Potential Rehabilitation Potential Good Analytic Complexity at Evaluation Moderate Summary OT Impairments Pain,Range of Motion,Strength, Balance,Functional Mobility, Self-Feeding,Grooming,Dressing ,Toileting,Bathing,Toilet Transfers,Shower Transfers, Activity Tolerance Progress Towards Goals Slow Progress due to Pain,Slow Progress due to Medical Issues,Slow Progress due to Activity Tolerance Assessment Summary Pt MOD complexity and now thinking better able to follow commands for OT eval. Able to issue pt figure 8 sling for comfort. Pt to go to skilled rehab as now needing extensive assist for all needs due to RLE and RUE weight bearing limitations. Goals Self-Feeding Goal Standby Assistance Grooming Goal Standby Assistance Dressing Goal Moderate Assistance Toileting Goal Moderate Assistance Bathing Goal Moderate Assistance Toilet Transfer Goal Moderate Assistance Shower Transfer Goal Moderate Assistance Days to Meet Goals 20 Frequency of Treatment Frequency Of Treatment Once a Day Treatment Plan OT Treatment Plan ADL Training,Functional Mobility,Patient/Family Education,Discharge Planning Other Treatment Recommendations and Next Transfer to [facility] with sliding Treatment Focus board MAX AX 1 Discharge Recommendations OT Discharge Recommendations SNF Rehab Transportation Needs at Discharge Wheelchair/Cabulance
[2022-08-18 11:00] VITALS: BP 145/89; PULSE 97; RESP 18; TEMP 36.3; O2SAT 95
[2022-08-18 11:23] LABS: COVID19 -Nasal RAPID Negative (Negative)
--- NOTE | 2022-08-18 11:29 | PC.NURSE ---
Addendum entered by Bronwyn De Jesus R.N. 08/18/22 12:36: Correction patient with confusion especially short term memory. He is aware of being in the hospital and his name/birthdate but confused intermittently and unaware of hospital name or date. He is escorted by facility designee to [facility] at approximately 1220 with all of his belongings including his wallet and cell phone. Original Note: Pt A&OX3, SBP slightly elevated this a.m. 170's /80's, he is on RA. Pt is given am medication with antihypertensive. He reports pain elevated with turning and movement getting out of bed but at rest reports pain tolerable. Given tylenol per schedule. Patient with incontinent loose BM this a.m. (had been getting laxatives for constipation). Per orders patient given immodium prn. He is cleared for discharge to SNF. CM spoke with daughter. Patient is agreeable although noted confusion with short term memory.He denies wanting to put R shoulder/arm in sling this a.m. Report called to Muna at [facility], packet given to ANOOP bauman dc'rahul in L forearm.
== END 2022-08-18 12:20 | DRG 896 ==
LOC: ED 20:23 → AC 22:01 → ICU 22:36 → AC 08-10 16:15
PROVIDERS: Emergency Medicine; Family Medicine; Internal Medicine; Neuromusculoskeletal Medicine, Sports Medicine; Student in an Organized Health Care Education/Training Program; Admitting Provider Nurse Practitioner Family; Emergency Provider Emergency Medicine; PCP Internal Medicine; Visit Provider Nurse Practitioner Family
DX: F10.239 Alcohol dependence with withdrawal, unspecified (principal); E43 Unspecified severe protein-calorie malnutrition; G93.41 Metabolic encephalopathy; S32.401A Unspecified fracture of right acetabulum, initial encounter for closed fracture; Z68.1 Body mass index [BMI] 19.9 or less, adult; F17.210 Nicotine dependence, cigarettes, uncomplicated; I70.201 Unspecified atherosclerosis of native arteries of extremities, right leg; I25.10 Atherosclerotic heart disease of native coronary artery without angina pectoris; E78.5 Hyperlipidemia, unspecified; E83.42 Hypomagnesemia; S42.031A Displaced fracture of lateral end of right clavicle, initial encounter for closed fracture; E87.6 Hypokalemia; E83.51 Hypocalcemia; I71.43 Infrarenal abdominal aortic aneurysm, without rupture; D64.9 Anemia, unspecified; I10 Essential (primary) hypertension; W18.30XA Fall on same level, unspecified, initial encounter; Y90.0 Blood alcohol level of less than 20 mg/100 ml; Z66 Do not resuscitate; Z20.822 Contact with and (suspected) exposure to COVID-19
CPT/HCPCS: 0241U; 36415; 36430; 70450; 71045; 71275; 72125; 72192; 73000; 73030; 73502; 74174; 80048; 80053; 80305; 80320; 81001; 82550; 83540; 83550; 83605; 83735; 84132; 84134; 84145; 84484; 85014; 85018; 85025; 86850; 86900; 86901; 87040; 87635; 87797; 93005; 93010; 94760; 94762; 96374; 96375; 96376; 97161; 97166; 97530; 99285; C9803; G0378; P9016; J1170; J1885; J1940; J2060; J2270; J2405; J3475

== ENCOUNTER → 2022-08-25 17:22 | Outpatient (CLI) | payer MEDICARE, OTHER, SELFPAY ==
[2022-08-07 23:20] VITALS: BMI 18.4
[2022-08-25 19:09] LABS: Appearance Urine UA CLEAR; Bilirubin Urine UA NEGATIVE (NEGATIVE); Color Urine UA YELLOW; Glucose Urine UA NEGATIVE (Negative); Ketones Urine UA NEGATIVE (NEGATIVE); Leukocyte Esterase Urine UA 2+ (NEGATIVE); Nitrite Urine UA POSITIVE (Negative); Occult Blood Urine UA NEGATIVE (Negative); Protein Urine UA NEGATIVE (Negative); Urobilinogen Urine UA 0.2 E.U./dL (0.2)
[2022-08-25 19:32] LABS: Amorphous Sediment Urine 2+; Bacteria Urine Occasional (0-1); RBC Urine None Seen (0-5/HPF); WBC Urine 0-1/HPF (0-5/HPF)
== END ==
PROVIDERS: PCP Internal Medicine; Referring Provider Internal Medicine; Visit Provider Internal Medicine
DX: N39.0 Urinary tract infection, site not specified (principal)
CPT/HCPCS: 81001; 87077; 87086; 87147; 87186

== ENCOUNTER 2024-07-30 08:17 | Inpatient (IN) | payer MEDICARE, OTHER, SELFPAY ==
[2022-08-07 23:20] VITALS: BMI 18.4
[2024-07-30] VITALS (20 sets, daily range): BP systolic 101–139; BP diastolic 49–77; PULSE 77–135; RESP 18–36; TEMP 36.8–38.5; O2SAT 92–98; BMI 18.2; BMI 18.7
--- NOTE | 2024-07-30 08:28 | EKG_ITS ---
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
--- NOTE | 2024-07-30 08:29 | ED.GENADULT ---
HPI - General Adult General Chief complaint: GI Bleed Stated complaint: Black Stools Time Seen by Provider: 07/30/24 08:28 Source: patient, EMS, RN notes reviewed and old records reviewed Mode of arrival: EMS Limitations: no limitations History of Present Illness HPI narrative: 77-year-old male history of hypertension, dyslipidemia, coronary artery disease with cardiac stents, COPD, tobacco use, history of aneurysm who presents with complaint of feeling generally weak and ?I feel like crap?. Patient denies any fevers. Denies any chest pain, has chronic shortness of breath he states it has maybe a little bit worse. Denies any abdominal back or flank pain. Denies any nausea or vomiting. No lightheadedness or passing out. States he has been able to walk around the house. Patient states he has had diarrhea for the last 6-12 months. States several times daily. Describes it as watery and black. Patient states he did stop his anticoagulation in the past couple of months because of what sounds like GI bleed. Patient does note some difficulty with urination. Patient isn't sure what he takes for medication but states no longer takes any anticoagulants does take medication for his heart. States he has had cardiac stents states that they are monitoring his aneurysm but have not initiated surgery. No known drug allergies reported. Does smoke up to 2 packs per day, drinks alcohol 2 or 3 beers daily states he stopped all hard alcohol, no recreational drugs. Primary care is in [place]. Related Data Home Medications Medication Instructions Recorded Confirmed aspirin 81 mg tablet,delayed 81 mg PO QDAY ##0 06/23/12 07/30/24 release atorvastatin 80 mg PO BEDTIME 06/21/21 07/30/24 albuterol sulfate 90 mcg/actuation 2 puff inhalation Q4-6H PRN sob 07/30/24 07/30/24 aerosol inhaler carvedilol 3.125 mg tablet 3.125 mg PO BID 07/30/24 07/30/24 furosemide 20 mg tablet 20 mg PO DAILY 07/30/24 07/30/24 midodrine 2.5 mg tablet 2.5 mg PO TID 07/30/24 07/30/24 mirtazapine 7.5 mg tablet 7.5 mg PO BEDTIME 07/30/24 07/30/24 hntdpidhcjhj-jtvaqozc-lrhcgm tablet 1 tab PO DAILY 07/30/24 07/30/24 omeprazole 40 mg capsule,delayed 40 mg PO DAILY 07/30/24 07/30/24 release potassium chloride 20 mEq 400 meq PO DAILY 07/30/24 07/30/24 tablet,extended release Previous Rx's Medication Instructions Recorded ascorbic acid (vitamin C) 500 mg 500 mg PO BID #60 tabs 06/25/21 tablet (Vitamin C) clopidogrel 75 mg tablet (Plavix) 75 mg PO DAILY #30 tabs 06/25/21 cyanocobalamin (vitamin B-12) 100 100 mcg PO DAILY #60 tabs 06/25/21 mcg tablet (Vitamin B-12) docusate sodium 100 mg capsule 100 mg PO BID #60 caps 06/25/21 famotidine 20 mg tablet (Pepcid AC) 40 mg (2 x 20 mg) PO BID #60 tabs 06/25/21 folic acid 1 mg tablet 1 mg PO DAILY #60 tabs 06/25/21 lisinopril 10 mg tablet 20 mg (2 x 10 mg) PO QDAY #90 tabs 08/18/22 magnesium oxide 400 mg (241.3 mg 400 mg PO BID #60 tabs 08/18/22 magnesium) tablet nicotine 7 mg/24 hr daily 7 mg topical DAILY #30 ea 08/18/22 transdermal patch Allergies Allergy/AdvReac Type Severity Reaction Status Date / Time No Known Drug Allergies Allergy Verified 07/30/24 08:50 Review of Systems Review of Systems ROS Unobtainable: All systems reviewed & are unremarkable except as noted in HPI and below Patient History Medical History Claudication of both lower extremities COPD (chronic obstructive pulmonary disease) Hyperlipidemia CAD (coronary artery disease) HTN (hypertension) Surgical History History of heart artery stent Social History household members: none Smoking Status: Current every day smoker alcohol intake: current Smoking Status: Current every day smoker alcohol intake frequency: 0-2 drinks per day Exam Narrative Exam Narrative: GEN: Thin, cachectic-appearing male, alert and oriented x 3, patient appears to be in mild distress. HEENT: Atraumatic, pupils are equal round reactive to light, extraocular movements are intact, nares are clear, there is no conjunctival pallor. Throat is clear without any exudates, erythema, tonsillar enlargement or uvular deviation HEART: Tachycardic occasionally irregular rate and rhythm without murmur, clicks, rubs. Pulses are equal in upper and lower extremities LUNGS:Lungs clear to auscultation, no wheezes, rales, crackles, chest moves symmetrically, no tachypnea or accessory muscle use ABD:bowel sounds normal, soft, non-tender, no guarding, rebound, rigidity, no masses noted, no hepatosplenomegaly, DYLAN is negative. :No CVA tenderness, Male: Patient has swollen erythematous left testicle, no signs of infection erythema or swelling of the penis, no penile discharge or lesions, left testicle is tender, feels full or indurated, no fluctuance appreciated, no skin breakdown appreciated in the perineum, cremasteric reflex intact, no inguinal hernias noted. MSCL: Non-tender, no muscle atrophy, muscles strength 5/5 upper and lower extremities, full range of motion. NEURO:CN 2-12 intact, sensation normal SKIN: Patient has skin tear of the left forearm that has about 1 cm in diameter. Initial Vital Signs Initial Vital Signs: Vital Signs Temperature 99.9 F H 07/30/24 08:15 Pulse Rate 130 H 07/30/24 08:15 Respiratory Rate 18 07/30/24 08:15 Blood Pressure 139/60 07/30/24 08:15 Pulse Oximetry 97 07/30/24 08:15 Oxygen Delivery Method Room Air 07/30/24 08:15 Course Orders Ordered: ED Orders 07/30/24 09:40 Covid-19 + FLU A/B + RSV - PCR Stat 07/30/24 09:41 US scrotum Stat 07/30/24 10:08 Blood Culture Stat 07/30/24 10:24 Urine Culture Stat Urine Microscopic Stat 07/30/24 10:46 EKG-12 Lead Stat 07/30/24 10:55 Trop I [Troponin I] Stat Acetaminophen (Acetaminophen 325 Mg Tablet) 650 mg PO Q6H PRN PRN Reason: Fever/Mild Pain (1-3) Last Admin: 07/30/24 16:34 Dose: 650 mg Documented By: CS Al Hydrox/Mg Hydrox/Simethicone (Mag Hydrox/Alum/Simeth 30 Ml Udc) 30 ml PO Q6HR PRN PRN Reason: Dyspepsia Heparin Sodium (Porcine) (Heparin 5,000 Unit/Ml Vial) 5,000 unit SUBCUT BID LEE Sodium Chloride (Normal Saline 0.9%) 1,000 mls @ 100 mls/hr IV CONT LEE Last Admin: 07/30/24 16:09 Dose: 100 mls/hr Documented By: CS Levofloxacin (Levaquin) 750 mg in 150 mls @ 100 mls/hr IV Q24H LEE Naloxone HCl (Naloxone 0.4 Mg/Ml Vial) 0.2 mg IV Q2MIN PRN PRN Reason: Opiate Reversal Nicotine (Nicotine 21 Mg Patch) 21 mg TOP DAILY LEE Ondansetron HCl (Ondansetron 4 Mg/2 Ml Inj) 4 mg IV Q8HR PRN PRN Reason: Nausea And Vomiting Discontinued Medications Ceftriaxone Sodium 1,000 mg/ (Sodium Chloride) 100 mls @ 200 mls/hr IV NOW ONE Stop: 07/30/24 09:49 Last Infusion: 07/30/24 10:46 Dose: Infused Documented By: Admin: 07/30/24 10:14 Dose: 200 mls/hr Documented By: FELIX Magnesium Sulfate (Magnesium Sulfate) 2 gm in 50 mls @ 150 mls/hr IV NOW ONE Stop: 07/30/24 10:21 Last Infusion: 07/30/24 10:47 Dose: Infused Documented By: FELIX Co-signed By: DALJIT Admin: 07/30/24 10:17 Dose: 150 mls/hr Documented By: FELIX Co-signed By: MARIANN Levofloxacin (Levaquin) 750 mg in 150 mls @ 100 mls/hr IV NOW ONE Stop: 07/30/24 11:33 Last Infusion: 07/30/24 12:58 Dose: Infused Documented By: Admin: 07/30/24 11:07 Dose: 100 mls/hr Documented By: FELIX Sodium Chloride (Normal Saline 0.9%) 1,632.93 mls @ 544.31 mls/hr 30 ml/kg infuse over 3 hr (1632.93 ml) IV NOW ONE Stop: 07/30/24 14:11 Last Infusion: 07/30/24 13:06 Dose: Infused Documented By: Admin: 07/30/24 11:51 Dose: 544.31 mls/hr Documented By: JAVIER Morphine Sulfate (Morphine 4 Mg/Ml Inj) 4 mg IV NOW ONE Stop: 07/30/24 09:49 Last Admin: 07/30/24 09:59 Dose: 4 mg Documented By: FELIX Ondansetron HCl (Ondansetron 4 Mg/2 Ml Inj) 4 mg IV NOW PRN PRN Reason: Nausea And Vomiting Pantoprazole Sodium (Pantoprazole 40 Mg Vial) 80 mg IV NOW ONE Stop: 07/30/24 08:29 Last Admin: 07/30/24 09:21 Dose: 80 mg Documented By: FELIX Vital Signs Vital signs: Vital Signs - 8 hr 07/30/24 11:00 07/30/24 11:00 07/30/24 11:30 Temperature 98.7 F Pulse Rate 117 H 116 H Respiratory Rate 28 H 27 H Blood Pressure 101/58 L Pulse Oximetry 95 Oxygen Delivery Method 07/30/24 11:30 07/30/24 12:00 07/30/24 12:00 Temperature Pulse Rate 124 H Respiratory Rate 29 H Blood Pressure 109/60 123/64 Pulse Oximetry 97 Oxygen Delivery Method Room Air 07/30/24 12:30 07/30/24 13:00 Temperature Pulse Rate 123 H 123 H Respiratory Rate 25 H 26 H Blood Pressure 127/65 128/67 Pulse Oximetry 98 96 Oxygen Delivery Method Medical Decision Making Lab Data 07/30/24 08:39 07/30/24 08:39 Labs: Lab Results 07/30/24 07/30/24 07/30/24 Range/Units 08:39 09:40 10:24 WBC 18.5 H (4.5-11.0) X10^3/uL RBC 2.84 L (4.5-5.9) X10^6/uL Hgb 9.2 L (13.5-17.5) g/dL Hct 26.8 L (41-53) % MCV 94.2 (80-100) fL MCH 32.3 (26-34) PG MCHC 34.3 (30-36) % RDW 19.1 H (11.6-14.8) % Plt Count 187 (150-400) X10^3/uL Neut % (Auto) 92.3 H (50-75) % Lymph % (Auto) 1.9 L (25-40) % Gila % (Auto) 5.4 (3-14) % Eos % (Auto) 0.0 L (2-4) % Baso % (Auto) 0.4 (0-2) % Neut # (Auto) 30517 H (4375-6562) /uL Lymph # (Auto) 400 L (4813-3777) /uL [place]ila # (Auto) 1000 H (0-900) /uL Eos # (Auto) 0 (0-450) /uL Baso # (Auto) 100 (0-100) /uL PT 15.3 H (9.4-12.5) SECONDS INR 1.4 H (0.9-1.3) APTT 29 (25.1-36.5) SECONDS Sodium 135 L (137-145) mmol/L Potassium 3.4 (3.4-5.1) mmol/L Chloride 108 H (98-107) mmol/L Carbon Dioxide 21 L (22-32) mmol/L BUN 28 H (9-20) mg/dL Creatinine 1.53 H (0.66-1.25) mg/dL Estimated GFR 46 L (>60) mL/min BUN/Creatinine Ratio 18.3 (6-22) Glucose 155 H (80-110) mg/dL Lactate 0.9 (0.7-2.1) mmol/L Calcium 8.3 L (8.4-10.2) mg/dL Magnesium 0.7 L* (1.6-2.3) mg/dL Total Bilirubin 0.9 (0.2-1.3) mg/dL AST 49 (17-59) IU/L ALT 31 (<50) IU/L Alkaline Phosphatase 73 (38-126) U/L Total Creatine Kinase 42 L (55-170) U/L Troponin I 0.040 H (0.01-0.034) ng/mL NT-Pro-B Natriuret Pep 8720 H (<450) pg/mL Total Protein 5.7 L (6.3-8.2) g/dL Albumin 2.9 L (3.5-5.0) g/dL Globulin 2.8 (1.7-4.1) g/dL Albumin/Globulin Ratio 1.0 (1.0-2.8) Procalcitonin 1.74 H (<0.5) ng/mL Urine RBC 5-10/hpf H (0-5/HPF) Urine WBC 10-30/hpf H (0-5/HPF) Ur Squamous Epith Cells None seen (0-5/HPF) Urine Bacteria Moderate (10-30) H (None) Ur Culture Indicated? Specimen cultured Vol Urine Centrifuged 10ml (spun) SARS-CoV-2 (PCR) Negative (Negative) Influenza A (RT-PCR) Flu a negative (NEGATIVE) Influenza B (RT-PCR) Flu b negative (NEGATIVE) RSV (PCR) Negative (Negative) Blood Type O Positive Antibody Screen Negative 07/30/24 Range/Units 10:55 WBC (4.5-11.0) X10^3/uL RBC (4.5-5.9) X10^6/uL Hgb (13.5-17.5) g/dL Hct (41-53) % MCV (80-100) fL MCH (26-34) PG MCHC (30-36) % RDW (11.6-14.8) % Plt Count (150-400) X10^3/uL Neut % (Auto) (50-75) % Lymph % (Auto) (25-40) % Gila % (Auto) (3-14) % Eos % (Auto) (2-4) % Baso % (Auto) (0-2) % Neut # (Auto) (1185-3380) /uL Lymph # (Auto) (7932-3146) /uL Gila # (Auto) (0-900) /uL Eos # (Auto) (0-450) /uL Baso # (Auto) (0-100) /uL PT (9.4-12.5) SECONDS INR (0.9-1.3) APTT (25.1-36.5) SECONDS Sodium (137-145) mmol/L Potassium (3.4-5.1) mmol/L Chloride (98-107) mmol/L Carbon Dioxide (22-32) mmol/L BUN (9-20) mg/dL Creatinine (0.66-1.25) mg/dL Estimated GFR (>60) mL/min BUN/Creatinine Ratio (6-22) Glucose (80-110) mg/dL Lactate (0.7-2.1) mmol/L Calcium (8.4-10.2) mg/dL Magnesium (1.6-2.3) mg/dL Total Bilirubin (0.2-1.3) mg/dL AST (17-59) IU/L ALT (<50) IU/L Alkaline Phosphatase (38-126) U/L Total Creatine Kinase (55-170) U/L Troponin I 0.041 H (0.01-0.034) ng/mL NT-Pro-B Natriuret Pep (<450) pg/mL Total Protein (6.3-8.2) g/dL Albumin (3.5-5.0) g/dL Globulin (1.7-4.1) g/dL Albumin/Globulin Ratio (1.0-2.8) Procalcitonin (<0.5) ng/mL Urine RBC (0-5/HPF) Urine WBC (0-5/HPF) Ur Squamous Epith Cells (0-5/HPF) Urine Bacteria (None) Ur Culture Indicated? Vol Urine Centrifuged SARS-CoV-2 (PCR) (Negative) Influenza A (RT-PCR) (NEGATIVE) Influenza B (RT-PCR) (NEGATIVE) RSV (PCR) (Negative) Blood Type Antibody Screen Point of Care Testing Stool Occult Blood Negative Urine Dip Bedside Urine Glucose Negative Bedside Urine Bilirubin - Negative Bedside Urine Ketone - Negative Urine Specific [place] 1.015 Bedside Urine Occult Blood +++ Bedside Urine pH 6.0 Bedside Urine Protein ++ 100 Bedside Urine Urobilinogen - Negative Bedside Urine Nitrite - Negative Bedside Urine Leukocytes ++ 125 Esterase Point of care testing: Point of Care Testing Stool Occult Blood Negative Urine Dip Bedside Urine Glucose Negative Bedside Urine Bilirubin - Negative Bedside Urine Ketone - Negative Urine Specific [place] 1.015 Bedside Urine Occult Blood +++ Bedside Urine pH 6.0 Bedside Urine Protein ++ 100 Bedside Urine Urobilinogen - Negative Bedside Urine Nitrite - Negative Bedside Urine Leukocytes ++ [address] scan - abdomen/pelvis: Radiologist's Impression: Yazan Anderson??79??M??1945 ? Allergy/Adv: No Known Drug Allergies Close Scrotum Ultrasound (Signed) Wiliam Cisneros - 07/30/24 Abdomen/Pelvis CT (Signed) Wiliam Cisneros - 07/30/24 Chest X-Ray (Signed) Wiliam Cisneros - 07/30/24 Shoulder X-Ray (Signed) Duane Em - 08/11/22 Telemetry Strips 08/09/22 Chest/Abdomen/Pelvis CTA (Signed) Luis Holman - 08/07/[address] (Signed) Albert,Muneer (+) - 08/07/22 Shoulder X-Ray (Cancelled) 08/07/22 Hip X-Ray (Signed) Albert,Muneer - 08/07/[address] (Signed) Albert,Muneer - 08/07/22 Clavicle X-Ray (Signed) Albert,Muneer - 08/07/22 Chest X-Ray (Signed) Albert,Muneer - 08/07/[address] (Signed) Albert,Muneer - 08/07/22 Lumbar Spine MRI (Signed) Katerina Burch - 04/22/22 Echocardiogram Ultrasound (Signed) Patsy Melchor - 12/05/21 KUB X-Ray (Signed) InaJake - 06/24/[address] (Signed) Miles Vargas - 06/21/21 Telemetry Strips 06/21/21 Hip X-Ray (Signed) Miles Vargas - 06/21/21 Chest X-Ray (Signed) Miles Vargas - 06/21/21 Hip X-Ray (Signed) [facility] - 06/21/21 Carotid Doppler Study (Signed) [facility] [place] - 04/22/21 Radiology Report (Cancelled) Randy Curry - 03/08/20 Myocardial Perfusion Scan Nuc Med (Signed) Randy Curry - 03/08/20 PFT Result 03/01/20 [place] [address] [place] Scan Report Signed Patient: Yazan Anderson MR#: [id number] : 1945 Acct:[id number] Age/Sex: 79 / M Date of Service: 07/30/24 Loc: ED Accession Number: [id number] Procedure: CT kidney ureter bladder (KUB) Ordering Provider: Wendy Mendez D.O. PROCEDURE: CT KIDNEY URETER BLADDER (KUB) INDICATIONS: ERVIN improved from prior, diarrhea TECHNIQUE: Axial sections were acquired from the lung bases to the pubic symphysis. Coronal and sagittal reformats were performed. For radiation dose reduction, the following was used: automated exposure control, adjustment of mA and/or kV according to patient size. COMPARISON: None. FINDINGS: Image quality: Diagnostic. Lower Chest: No significant findings. URINARY: Right Kidney: No stones or hydronephrosis. Prominent perinephric fat stranding. Right Ureter: Mild right ureteral dilation. Left Kidney: 4 mm left stone. Left Ureter: No hydroureter. Bladder: Increased wall thickness. No stones. ABDOMEN: Liver: No contour-deforming solid mass. Gallbladder: No radiopaque gallstones or wall thickening. Biliary ducts: No biliary dilation. Pancreas: No ductal dilation. Spleen: Size is within normal limits. Adrenal Glands: No adrenal nodules. Stomach and Bowel: Normal colonic caliber, without significant wall thickening. Multiple loops of small bowel with air-fluid levels. Peritoneum: No abnormal intraperitoneal fluid. No free air. Ventral Wall: No hernia. Abdominal Nodes: No enlarged retroperitoneal or mesenteric lymph nodes. Vessels: Calcified aneurysm of the infrarenal aorta measuring 4.3 cm. PELVIS: Pelvic Organs: Prostatomegaly with coarse calcifications.. Pelvic Nodes: Unremarkable. Miscellaneous: No inguinal hernias are seen. Bones: Wedge deformity of T12 and L3.. IMPRESSION: 1. Small left kidney stone measuring 4 mm. 2. Bilateral perinephric fat stranding with prominent fluid-filled right ureter. 3. Thickened bladder wall, correlate with UA. 4. Abdominal aortic aneurysm. 5. Multiple loops of bowel with air-fluid levels. Correlate for enteritis. 6. Prostatomegaly. Dictated by: Wiliam Cisneros M.D. on 07/30/2024 at 9:26 Approved by: Wiliam Cisneros M.D. on 07/30/2024 at 9:36 Chest x-ray: Radiologist's Impression: [address] [address] XRay Report Signed Patient: Yazan Anderson MR#: [id number] : 1945 Acct:[id number] Age/Sex: 79 / M Date of Service: 07/30/24 Loc: ED Accession Number: [id number] Procedure: XR chest 1V Ordering Provider: Wendy Mendez D.O. PROCEDURE: XR CHEST 1V INDICATIONS: weakness, sob TECHNIQUE: One view of the chest was acquired. COMPARISON: [facility], CR, XR CHEST 1V, 08/07/2022, 15:16. FINDINGS: Surgical changes and devices: None. Lungs and pleura: Lungs are clear. No pleural effusions or pneumothorax. Mediastinum: Mediastinal contours appear normal. Heart size is normal. Bones and chest wall: No suspicious bony lesions. Overlying soft tissues appear unremarkable. IMPRESSION: No acute cardiopulmonary abnormality is seen. Dictated by: Wiliam Cisneros M.D. on 07/30/2024 at 7:58 Approved by: Wiliam Cisneros M.D. on 07/30/2024 at 7:59 scrotum US: Radiologist's Impression: [address] [id number] Ultrasound Report Signed Patient: Yazan Anderson MR#: [id number] : 1945 Acct:[id number] Age/Sex: 79 / M Date of Service: 07/30/24 Loc: ED Accession Number: [id number] Procedure: US scrotum Ordering Provider: Wendy Mendez D.O. PROCEDURE: US SCROTUM INDICATIONS: L testicle swollen/painful TECHNIQUE: Real-time scanning was performed of the scrotum and testicles, with image documentation. Color and pulse Doppler interrogation was performed of both testicles. COMPARISON: None. FINDINGS: Right: Testicle is normal in size at 4.2.7 x 2.7 cm, and homogenous in echotexture. Epididymis is normal in overall size and morphology. No hydrocele or varicoceles. Overlying scrotal skin is normal in thickness. Left: Testicle is normal in size at 3.5 x 3 x 2.6 cm, and homogeneous in echotexture. Epididymis is normal in overall size and morphology however demonstrates heterogeneous echotexture and increased vascularity. No hydrocele or varicoceles. Overlying scrotal skin is normal in thickness. Doppler: Normal color flow to the right testicle. Increased vascular flow flow throughout the left testicle and epididymis. IMPRESSION: Left orchitis and epididymitis Dictated by: Wiliam Cisneros M.D. on 07/30/2024 at 9:22 Approved by: Wiliam Cisneros M.D. on 07/30/2024 at 9:24 ECG Data Attestation: I personally reviewed and interpreted this ECG as follows: Prior ECG tracings: available for review Interpretation: Sinus tachycardia premature atrial complexes rate of 127, WI 142 QRS of 114 QTC of 465, no acute ST elevation or depression patient has prior from 08/07/2022 appears similar sinus tachycardia left axis deviation, right bundle-branch block. Repeat EKG sinus tach premature atrial complexes rate of 123 left axis deviation right bundle-branch block. [facility] Narrative Medical decision making narrative: 79-year-old male presents with complaint of weakness and feeling unwell black watery stools for months. Indicates that they stopped his anticoagulation because of potential GI bleed several months ago. Patient initially forgot to mention but has had scrotal swelling for the past 4 5 days. He denies any abdominal pain no chest pain or shortness of breath. Patient is tachycardic but not hypotensive, afebrile. EKG shows sinus tach does have had some irregularities but appears to have P waves suspect possible PACs over atrial fibrillation is not irregularly irregular, left axis deviation right bundle-branch block with left axis deviation. Patient has prior EKG from 08/07/2022 which appears similar Chest x-ray shows no acute change Labs show white count 18.5 hemoglobin appears stable at 9.2 last was from 08/18/2022, platelets are 187 down from priors when patient was chronically elevated. Predominance of neutrophils. INR today is 1.4. Chemistries show creatinine of 1.53 increased from 2023, sodium is 135, potassium 3.4 chloride 108 CO2 is 21 BUN 28 glucose is 155 troponin is 0.040 with a CK of 42 alk-phos is 73 LFTs are otherwise normal. Patient given 500 mL bolus and re-evaluated, we will give an additional 500 cc bolus as patient appears to be sinus tach. CT KUB shows small left kidney stone within the kidney itself prominent perinephric stranding mild right ureteral dilation. Patient urgent has bilateral peripheral nephric fat stranding with prominent fluid-filled right ureter thickened bladder wall correlate with UA abdominal aortic aneurysm multiple notes of bowel with air-fluid levels correlate for enteritis. Prostatomegaly. Scrotal ultrasound shows left orchitis and epididymitis, overlying scrotal skin is normal thickness. Normal flow no hydrocele or varicocele is noted. GI panel was ordered as patient has had persistent diarrhea. Had initial concern for GI bleed with black watery stools and had Protonix 80 mg although rectal exam patient is stool occult is negative with stable hemoglobin over quite some time. Patient received 1 L bolus from fluids from EMS had some improvement of heart rate, blood pressure dropped but this was shortly after morphine. Did have additional fluids for 30 cc/kilos bolus but was not given in the 3 hour timeframe secondary to dilation likely has CHF component concern for fluid overload. Patient received Rocephin as well as Levaquin for potential UTI versus presenting cellulitis/orchitis/epididymitis. On exam no changes consistent with abscess overlying the testicle itself. Patient's magnesium was also found to be low received dose of magnesium IV. Paged urology at 1153 Consult with Urology Oliveira Dr. Mccain @ 1302: Reviewed findings from patient recommends IV antibiotics with quinolone but no other intervention does not feel needs transfer Urology at this time. Spoke with hospitalist, Dr. Rosa @ [phone], accepts for inpatient. No in house urology. Reviewed recommendations from Urology. Findings sinus tach with a occasional PACs versus AFib patient has been persistently tachy little bit improved with fluids had 30 cc/kilos dose. Reviewed findings, patient's white count has increased creatinine has not improved from his visit on 07/25/2024 at [facility]. Critical Care Time Critical Care Time Critical Care Time: Yes Total Critical Care Time: 35 Attestation: The high probability of a clinically significant, sudden or life threatening deterioration of the cardiac and pulmonary system(s) required my full and direct attention, intervention and personal management. The aggregate critical care time was [--] minutes. This time is in addition to time spent performing reported procedures but includes the following: [x] Data Review and interpretation [x] Patient assessment and monitoring of vital signs [x] Documentation [x] Medication orders and management Discharge Plan Departure Patient Disposition: Admitted As Inpatient Clinical Impression: Acute UTI, Orchitis, left, Epididymitis, left, Sepsis Admit Date/Time: 07/30/24 13:22 Admit Provider: Elliott Rosa
--- NOTE | 2024-07-30 08:33 | DI.RAD.S_ITS ---
PROCEDURE: XR CHEST 1V INDICATIONS: weakness, sob TECHNIQUE: One view of the chest was acquired. COMPARISON: [facility], CR, XR CHEST 1V, 08/07/2022, 15:16. FINDINGS: Surgical changes and devices: None. Lungs and pleura: Lungs are clear. No pleural effusions or pneumothorax. Mediastinum: Mediastinal contours appear normal. Heart size is normal. Bones and chest wall: No suspicious bony lesions. Overlying soft tissues appear unremarkable. IMPRESSION: No acute cardiopulmonary abnormality is seen. Dictated by: Wiliam Cisneros M.D. on 07/30/2024 at 7:58 Approved by: Wiliam Cisneros M.D. on 07/30/2024 at 7:59
[2024-07-30 08:52] LABS: Add Manual Diff / Slide Review NO; Basophils Absolute Auto 100 /uL (0-100); Basophils Percent Auto 0.4 % (0-2); Eosinophils Absolute Auto 0 /uL (0-450); Hematocrit 26.8 % (41-53); Hemoglobin 9.2 g/dL (13.5-17.5); Lymphocytes Absolute Auto 400 /uL (1100-4500); Lymphocytes Percent Auto 1.9 % (25-40); Mean Corpuscular HGB Conc 34.3 % (30-36); Mean Corpuscular Hemoglobin 32.3 PG (26-34); Mean Corpuscular Volume 94.2 fL (80-100); Monocytes Absolute Auto 1000 /uL (0-900); Monocytes Percent Auto 5.4 % (3-14); Neutrophils Absolute Auto 17100 /uL (1500-7000); Neutrophils Percent Auto 92.3 % (50-75); Platelet Count 187 X10^3/uL (150-400); Red Blood Cell Count 2.84 X10^6/uL (4.5-5.9); Red Cell Distribution Width 19.1 % (11.6-14.8); White Blood Cell Count 18.5 X10^3/uL (4.5-11.0)
[2024-07-30 08:59] LABS: INR 1.4 (0.9-1.3); Prothrombin Time 15.3 SECONDS (9.4-12.5)
[2024-07-30 09:02] LABS: PTT Partial Thromboplastin Tim 29 SECONDS (25.1-36.5)
[2024-07-30 09:12] LABS: Alanine Aminotransferase 31 IU/L (<50); Albumin 2.9 g/dL (3.5-5.0); Alkaline Phosphatase 73 U/L (38-126); Aspartate Aminotransferase 49 IU/L (17-59); BUN Creatinine Ratio 18.3 (6-22); Bilirubin Total 0.9 mg/dL (0.2-1.3); Blood Urea Nitrogen 28 mg/dL (9-20); Calcium 8.3 mg/dL (8.4-10.2); Carbon Dioxide 21 mmol/L (22-32); Chloride 108 mmol/L (98-107); Creatine Kinase 42 U/L (55-170); Estimated Glomerular Filt Rate 46 mL/min (>60); Globulin 2.8 g/dL (1.7-4.1); Glucose 155 mg/dL (80-110); HEMOLYSIS < 15 (0-50); Potassium 3.4 mmol/L (3.4-5.1); Sodium 135 mmol/L (137-145); Total Protein 5.7 g/dL (6.3-8.2)
[2024-07-30] MEDS: PANTOPRAZOLE 40 MG VIAL 80 MG IV (09:21)
--- NOTE | 2024-07-30 09:30 | DI.CT.S_ITS ---
PROCEDURE: CT KIDNEY URETER BLADDER (KUB) INDICATIONS: ERVIN improved from prior, diarrhea TECHNIQUE: Axial sections were acquired from the lung bases to the pubic symphysis. Coronal and sagittal reformats were performed. For radiation dose reduction, the following was used: automated exposure control, adjustment of mA and/or kV according to patient size. COMPARISON: None. FINDINGS: Image quality: Diagnostic. Lower Chest: No significant findings. URINARY: Right Kidney: No stones or hydronephrosis. Prominent perinephric fat stranding. Right Ureter: Mild right ureteral dilation. Left Kidney: 4 mm left stone. Left Ureter: No hydroureter. Bladder: Increased wall thickness. No stones. ABDOMEN: Liver: No contour-deforming solid mass. Gallbladder: No radiopaque gallstones or wall thickening. Biliary ducts: No biliary dilation. Pancreas: No ductal dilation. Spleen: Size is within normal limits. Adrenal Glands: No adrenal nodules. Stomach and Bowel: Normal colonic caliber, without significant wall thickening. Multiple loops of small bowel with air-fluid levels. Peritoneum: No abnormal intraperitoneal fluid. No free air. Ventral Wall: No hernia. Abdominal Nodes: No enlarged retroperitoneal or mesenteric lymph nodes. Vessels: Calcified aneurysm of the infrarenal aorta measuring 4.3 cm. PELVIS: Pelvic Organs: Prostatomegaly with coarse calcifications.. Pelvic Nodes: Unremarkable. Miscellaneous: No inguinal hernias are seen. Bones: Wedge deformity of T12 and L3.. IMPRESSION: 1. Small left kidney stone measuring 4 mm. 2. Bilateral perinephric fat stranding with prominent fluid-filled right ureter. 3. Thickened bladder wall, correlate with UA. 4. Abdominal aortic aneurysm. 5. Multiple loops of bowel with air-fluid levels. Correlate for enteritis. 6. Prostatomegaly. Dictated by: Wiliam Cisneros M.D. on 07/30/2024 at 9:26 Approved by: Wiliam Cisneros M.D. on 07/30/2024 at 9:36
--- NOTE | 2024-07-30 09:41 | DI.US.S_ITS ---
PROCEDURE: US SCROTUM INDICATIONS: L testicle swollen/painful TECHNIQUE: Real-time scanning was performed of the scrotum and testicles, with image documentation. Color and pulse Doppler interrogation was performed of both testicles. COMPARISON: None. FINDINGS: Right: Testicle is normal in size at 4.2.7 x 2.7 cm, and homogenous in echotexture. Epididymis is normal in overall size and morphology. No hydrocele or varicoceles. Overlying scrotal skin is normal in thickness. Left: Testicle is normal in size at 3.5 x 3 x 2.6 cm, and homogeneous in echotexture. Epididymis is normal in overall size and morphology however demonstrates heterogeneous echotexture and increased vascularity. No hydrocele or varicoceles. Overlying scrotal skin is normal in thickness. Doppler: Normal color flow to the right testicle. Increased vascular flow flow throughout the left testicle and epididymis. IMPRESSION: Left orchitis and epididymitis Dictated by: Wiliam Cisneros M.D. on 07/30/2024 at 9:22 Approved by: Wiliam Cisneros M.D. on 07/30/2024 at 9:24
[2024-07-30 09:51] LABS: Lactate (Lactic Acid) 0.9 mmol/L (0.7-2.1)
[2024-07-30] MEDS: MORPHINE 4 MG/ML INJ IV (09:59)
[2024-07-30 10:01] LABS: NT-proBNP (BNP-Adult 18+) 8720 pg/mL (<450)
[2024-07-30 10:02] LABS: Magnesium 0.7 mg/dL (1.6-2.3)
[2024-07-30 10:10] LABS: Procalcitonin 1.74 ng/mL (<0.5)
[2024-07-30] MEDS: cefTRIAXone 1,000 MG in SODIUM CHLORIDE 0.9% 100 ML 200 MG IV (10:14)
[2024-07-30] MEDS: MAGNESIUM SULFATE 2 GM/50 ML PIGGYBACK IV ×2 (10:17→20:26)
--- NOTE | 2024-07-30 10:50 | PC.NURSE ---
EMS gave pt 250cc bolus of NS en route and paused fluids. Dr. Mendez verbalized ok to instill total liter of NS. Pt recieved 1L of NS and Dr. Mendez states to subtract 1L from sepsis fluid order.
--- NOTE | 2024-07-30 10:50 | EKG_ITS ---
[address] [address] Test Date: 2024-07-30 Pat Name: Yazan Anderson Department: Room: Gender: Male Paradi Tender: RILEY : 1945 Requested By: Order Number: [id number] Reading MD: Elliott Rosa Measurements Intervals [place] Rate: 130 P: 73 [place]: 130 QRS: -72 QRSD: 126 T: 67 QT: 336 QTc: 494 Interpretive Statements Sinus tachycardia with premature atrial complexes with aberrant conduction Left axis deviation Right bundle branch block Inferior infarct , age undetermined Electronically Signed On 07-30-2024 13:55:06 PST by Elliott Rosa
[2024-07-30] MEDS: levoFLOXacin 750 MG/150 ML PIGGYBACK 100 MG IV (11:07)
[2024-07-30 11:15] LABS: Urine Volume 10mL (spun)
[2024-07-30 11:15] LABS: COVID-19 CEPHEID 4-PLEX PCR Negative (Negative); Influenza A - CEPHEID Flu A NEGATIVE (NEGATIVE); Influenza B - CEPHEID Flu B NEGATIVE (NEGATIVE); Respiratory Syncytial Virus Negative (Negative)
[2024-07-30 11:17] LABS: Bacteria Urine Moderate (10-30); Culture Indicated Urine Specimen Cultured; RBC Urine 5-10/HPF (0-5/HPF); Squamous Epithelial Cell Urine None Seen (0-5/HPF); WBC Urine 10-30/HPF (0-5/HPF)
[2024-07-30 11:29] LABS: Troponin I 0.041 ng/mL (0.01-0.034)
[2024-07-30] MEDS: SODIUM CHLORIDE 0.9% 1,632.93 ML 544.31 ML IV (11:51)
--- NOTE | 2024-07-30 13:10 | EKG_ITS ---
[address] [address] Test Date: 2024-07-30 Pat Name: Yazan Anderson Department: Room: 221 Gender: Male Glassie: CHRISTINE : 1945 Requested By: Order Number: [id number] Reading MD: Elliott Rosa Measurements Intervals [place] Rate: 123 P: 70 [place]: 144 QRS: -70 QRSD: 112 T: 66 QT: 328 QTc: 469 Interpretive Statements Sinus tachycardia with premature atrial complexes Left axis deviation Right bundle branch block Inferior infarct , age undetermined Electronically Signed On 07-31-2024 8:40:04 PST by Elliott Rosa
--- NOTE | 2024-07-30 14:56 | PM.HP.1 ---
History of Present Illness History of Present Illness Date Patient Seen: 07/30/24 Time Patient Seen: 14:57 Chief complaint: Black Stools Narrative: From ED provider: 77-year-old male history of hypertension, dyslipidemia, coronary artery disease with cardiac stents, COPD, tobacco use, history of aneurysm who presents with complaint of feeling generally weak and ?I feel like crap?. Patient denies any fevers. Denies any chest pain, has chronic shortness of breath he states it has maybe a little bit worse. Denies any abdominal back or flank pain. Denies any nausea or vomiting. No lightheadedness or passing out. States he has been able to walk around the house. Patient states he has had diarrhea for the last 6-12 months. States several times daily. Describes it as watery and black. Patient states he did stop his anticoagulation in the past couple of months because of what sounds like GI bleed. Patient does note some difficulty with urination. Patient isn't sure what he takes for medication but states no longer takes any anticoagulants does take medication for his heart. States he has had cardiac stents states that they are monitoring his aneurysm but have not initiated surgery. No known drug allergies reported. Does smoke up to 2 packs per day, drinks alcohol 2 or 3 beers daily states he stopped all hard alcohol, no recreational drugs. Primary care is in [place]. S: He tells me that he has been ill for several weeks. He lives at home alone in [place]. He does not really leave his house and a friend brings food in. He drinks a couple of beers a day and smokes about a pack cigarettes. He has been too sick to smoke, or eat for least a week if not longer. His friend called his daughter who lives in [place]. She came up today and saw his state and he was brought to the hospital. He denies URI symptoms, cough, shortness a breath. He has a sore left testicle and imaging in the emergency department indicated orchitis. In imaging also indicated probable urinary tract infection. He was discussed with the urologist on-call from [facility] who recommended antibiotics. He also has a left inguinal hernia. He was had intermittent diarrhea for a year and weighs about 100 lb, this is chronic. He was had some black stools for maybe up to a week. He denies abdominal pain, nausea, vomiting, or hematemesis. [facility] Medical History Claudication of both lower extremities COPD (chronic obstructive pulmonary disease) Hyperlipidemia CAD (coronary artery disease) HTN (hypertension) Surgical History History of heart artery stent Social History household members: none Smoking Status: Current every day smoker alcohol intake: current Meds Home Medications and Allergies Home Medications Medication Instructions Recorded Confirmed Type aspirin 81 mg tablet,delayed 81 mg PO QDAY ##0 06/23/12 06/21/21 History release atorvastatin 75 mg PO BEDTIME 06/21/21 06/21/21 History ascorbic acid (vitamin C) 500 mg 500 mg PO BID #60 tabs 06/25/21 Rx tablet (Vitamin C) cholecalciferol (vitamin D3) 10 800 unit PO DAILY #60 tabs 06/25/21 Rx mcg (400 unit) tablet (Vitamin D3) clopidogrel 75 mg tablet (Plavix) 75 mg PO DAILY #30 tabs 06/25/21 Rx cyanocobalamin (vitamin B-12) 100 100 mcg PO DAILY #60 tabs 06/25/21 Rx mcg tablet (Vitamin B-12) docusate sodium 100 mg capsule 100 mg PO BID #60 caps 06/25/21 Rx famotidine 20 mg tablet (Pepcid AC) 40 mg (2 x 20 mg) PO BID #60 tabs 06/25/21 Rx folic acid 1 mg tablet 1 mg PO DAILY #60 tabs 06/25/21 Rx polyethylene glycol 3350 17 gram 17 gm PO BID #60 ea 06/25/21 Rx oral powder packet vitamin 1 tab PO DAILY #60 tabs 06/25/21 Rx no.76-iron,carbonyl 29 mg iron-folic acid 1 mg tablet (Prenatabs Rx) sennosides 8.6 mg tablet (senna) 17.2 mg (2 x 8.6 mg) PO BEDTIME 06/25/21 Rx #60 tabs sucralfate 1 gram tablet 1 gm PO ACHS #120 tabs 06/25/21 Rx lisinopril 10 mg tablet 20 mg (2 x 10 mg) PO QDAY #90 tabs 08/18/22 06/21/21 Rx magnesium oxide 400 mg (241.3 mg 400 mg PO BID #60 tabs 08/18/22 Rx magnesium) tablet nicotine 7 mg/24 hr daily 7 mg topical DAILY #30 ea 08/18/22 Rx transdermal patch oxycodone 5 mg tablet 5 mg PO Q6H PRN Pain, Moderate 08/18/22 Rx (4-6) #10 tabs Allergies Allergy/AdvReac Type Severity Reaction Status Date / Time No Known Drug Allergies Allergy Verified 07/30/24 08:50 Review of Systems Review of Systems Narrative: All else reviewed and otherwise unremarkable except as noted in the history and physical. Exam Vital Signs (past 8 hours): - 07/30/24 08:15 07/30/24 08:20 07/30/24 08:20 Temperature 99.9 F H Pulse Rate 130 H 132 H Respiratory Rate 18 Blood Pressure 139/60 122/73 Pulse Oximetry 97 97 Oxygen Delivery Method Room Air 07/30/24 08:30 07/30/24 08:30 07/30/24 09:00 Temperature Pulse Rate 133 H 130 H Respiratory Rate Blood Pressure 139/60 Pulse Oximetry 97 98 Oxygen Delivery Method Room Air 07/30/24 09:01 07/30/24 09:01 07/30/24 09:30 Temperature Pulse Rate 130 H 135 H Respiratory Rate Blood Pressure 123/65 Pulse Oximetry 98 Oxygen Delivery Method Room Air 07/30/24 10:00 07/30/24 10:00 07/30/24 10:24 Temperature Pulse Rate 126 H 131 H Respiratory Rate 31 H Blood Pressure 123/72 Pulse Oximetry 96 95 Oxygen Delivery Method 07/30/24 10:24 07/30/24 10:30 07/30/24 10:30 Temperature Pulse Rate 115 H Respiratory Rate 27 H Blood Pressure 124/65 103/57 L Pulse Oximetry 94 Oxygen Delivery Method Room Air 07/30/24 11:00 07/30/24 11:00 07/30/24 11:30 Temperature 98.7 F Pulse Rate 117 H 116 H Respiratory Rate 28 H 27 H Blood Pressure 101/58 L Pulse Oximetry 95 Oxygen Delivery Method 07/30/24 11:30 07/30/24 12:00 07/30/24 12:00 Temperature Pulse Rate 124 H Respiratory Rate 29 H Blood Pressure 109/60 123/64 Pulse Oximetry 97 Oxygen Delivery Method Room Air 07/30/24 12:30 07/30/24 13:00 07/30/24 13:30 Temperature Pulse Rate 123 H 123 H 129 H Respiratory Rate 25 H 26 H 26 H Blood Pressure 127/65 128/67 117/69 Pulse Oximetry 98 96 97 Oxygen Delivery Method 07/30/24 14:00 07/30/24 14:30 07/30/24 14:30 Temperature 99.4 F Pulse Rate 134 H 134 H Respiratory Rate 29 H 32 H Blood Pressure 101/57 L 101/66 101/66 Pulse Oximetry 95 94 Oxygen Delivery Method Room Air Oxygen Delivery Method Room Air Narrative Exam Narrative: NAD, alert and oriented, fluent speech, calm. Frail, cachectic, and very underweight. He has wasting of all extremities. Normocephalic skull, EOMI, anicteric sclera, symmetric pupils. Oropharynx unremarkable, no droop. Neck supple, midline trachea, no adenopathy. Lungs clear, normal rate and effort. Heart regular, no murmur gallop or rub. Abdomen is soft, non distended and non tender. Extremities are free of edema. Skin is free of rash or lesions. Joints are not swollen or deformed. Judgment appears to be abnormal. Left testicle is quite tender but not swollen. Right testicle is normal. There was no obvious hernia. Objective ECG Impression: Sinus tachycardia with premature atrial complexes with aberrant conduction Left axis deviation Right bundle branch block Inferior infarct , age undetermined Imaging Multiple studies:: Radiologist's impression: Scrotal US: FINDINGS: Right: Testicle is normal in size at 4.2.7 x 2.7 cm, and homogenous in echotexture. Epididymis is normal in overall size and morphology. No hydrocele or varicoceles. Overlying scrotal skin is normal in thickness. Left: Testicle is normal in size at 3.5 x 3 x 2.6 cm, and homogeneous in echotexture. Epididymis is normal in overall size and morphology however demonstrates heterogeneous echotexture and increased vascularity. No hydrocele or varicoceles. Overlying scrotal skin is normal in thickness. Doppler: Normal color flow to the right testicle. Increased vascular flow flow throughout the left testicle and epididymis. Abdomen pelvis CT: MPRESSION: 1. Small left kidney stone measuring 4 mm. 2. Bilateral perinephric fat stranding with prominent fluid-filled right ureter. 3. Thickened bladder wall, correlate with UA. 4. Abdominal aortic aneurysm. 5. Multiple loops of bowel with air-fluid levels. Correlate for enteritis. 6. Prostatomegaly. CXR: IMPRESSION: No acute cardiopulmonary abnormality is seen. Labs 07/30/24 08:39 07/30/24 08:39 Labs: Laboratory Results - last 24 hr 07/30/24 07/30/24 07/30/24 08:39 09:40 10:24 WBC 18.5 H RBC 2.84 L Hgb 9.2 L Hct 26.8 L MCV 94.2 MCH 32.3 MCHC 34.3 RDW 19.1 H Plt Count 187 Neut % (Auto) 92.3 H Lymph % (Auto) 1.9 L [place] % (Auto) 5.4 Eos % (Auto) 0.0 L Baso % (Auto) 0.4 Neut # (Auto) 61231 H Lymph # (Auto) 400 L [place] # (Auto) 1000 H Eos # (Auto) 0 Baso # (Auto) 100 PT 15.3 H INR 1.4 H APTT 29 Sodium 135 L Potassium 3.4 Chloride 108 H Carbon Dioxide 21 L BUN 28 H Creatinine 1.53 H Estimated GFR 46 L BUN/Creatinine Ratio 18.3 Glucose 155 H Lactate 0.9 Calcium 8.3 L Magnesium 0.7 L* Total Bilirubin 0.9 AST 49 ALT 31 Alkaline Phosphatase 73 Total Creatine Kinase 42 L Troponin I 0.040 H NT-Pro-B Natriuret Pep 8720 H Total Protein 5.7 L Albumin 2.9 L Globulin 2.8 Albumin/Globulin Ratio 1.0 Procalcitonin 1.74 H Urine RBC 5-10/hpf H Urine WBC 10-30/hpf H Ur Squamous Epith Cells None seen Urine Bacteria Moderate (10-30) H Ur Culture Indicated? Specimen cultured Vol Urine Centrifuged 10ml (spun) SARS-CoV-2 (PCR) Negative Influenza A (RT-PCR) Flu a negative Influenza B (RT-PCR) Flu b negative RSV (PCR) Negative Blood Type O Positive Antibody Screen Negative 07/30/24 10:55 WBC RBC Hgb Hct MCV MCH MCHC RDW Plt Count Neut % (Auto) Lymph % (Auto) [place] % (Auto) Eos % (Auto) Baso % (Auto) Neut # (Auto) Lymph # (Auto) [place] # (Auto) Eos # (Auto) Baso # (Auto) PT INR APTT Sodium Potassium Chloride Carbon Dioxide BUN Creatinine Estimated GFR BUN/Creatinine Ratio Glucose Lactate Calcium Magnesium Total Bilirubin AST ALT Alkaline Phosphatase Total Creatine Kinase Troponin I 0.041 H NT-Pro-B Natriuret Pep Total Protein Albumin Globulin Albumin/Globulin Ratio Procalcitonin Urine RBC Urine WBC Ur Squamous Epith Cells Urine Bacteria Ur Culture Indicated? Vol Urine Centrifuged SARS-CoV-2 (PCR) Influenza A (RT-PCR) Influenza B (RT-PCR) RSV (PCR) Blood Type Antibody Screen Assessment & Plan Assessment & Plan narrative: 1. Orchitis, present on admission and active. 2. Pyelonephritis, present on admission and active. 3. Melena, present on admission and active. 4. Severe protein caloric malnutrition with wasting, present on admission and active. 5. Tobacco dependence, present on admission and active. 6. Possible alcohol abuse, present on admission and active. 7. Chronic hypertension, present on admission and active. 8. Sepsis with tachycardia, 134, temperature of 99.4?, WBC of 18.5, and source of orchitis and pyelonephritis. He was also evidence of organ damage with a creatinine of 1.53. 9. Hypomagnesemia, present on admission and active. 1. Orchitis, present on admission and active. 2. Pyelonephritis, present on admission and active. 3. HTN, present on admission and active. 4. CAD, present on admission and active. 5. COPD, present on admission and active. 6. Tobacco abuse, present on admission and active. 7. Hypomagnesemia, present on admission and active. PLAN: -continue antibiotics. -follow cultures. -analgesics. -resume HTN meds when needed -nicotine patch -monitor for evidence of alcohol withdrawal, it sounds like it has been several days since he has been drinking. -replete electrolytes and monitor. Anticipate 2 [place] stay, supports IP status. Full code Daughter is proxy. Time-Based Coding :: 35 min spent with patient and on the chart (including review of chart, obtaining history, exam, reviewing outside data, placing orders, documenting exam and treatment plan, and counseling patient) on 07/30. Quality MIPS - Admit I confirm the patient?s Advance Care Plan is present, Code status is documented, Surrogate decision maker is in patient?s record [If Yes, STOP here]: Yes MIPS - Meds 'Current medications' to include all prescriptions, [id number] products, herbals, cannabis/cannabidiol products, and vitamin/mineral/dietary (nutritional) supplements. I have utilized all available resources to obtain, update, or review the patient?s current medications. [If Yes, STOP here]: Yes
[2024-07-30] MEDS: SODIUM CHLORIDE 0.9% 1,000 ML 100 ML IV (16:09)
[2024-07-30] MEDS: ACETAMINOPHEN 325 MG TABLET 650 MG PO (16:34)
[2024-07-30 18:17] LABS: Magnesium 1.2 mg/dL (1.6-2.3)
[2024-07-30] MEDS: POTASSIUM CHLORIDE IN WATER 10 MEQ/100 ML PIGGYBACK 100 MEQ IV ×2 (21:22→22:43)
[2024-07-30 21:58] LABS: Acinetobacter calcoa-baumannii Not Detected (Not Detect); Bacteroides fragilis Not Detected (Not Detect); CTX-M Resistance Detected (Not Detect); Candida albicans Not Detected (Not Detect); Candida auris Not Detected (Not Detect); Candida glabrata Not Detected (Not Detect); Candida krusei Not Detected (Not Detect); Candida parapsilosis Not Detected (Not Detect); Candida tropicalis Not Detected (Not Detect); Cryptococcus neoformans/gatti Not Detected (Not Detect); Enterobacter cloacae complex Not Detected (Not Detect); Enterobacterales Detected (Not Detect); Enterococcus faecalis Not Detected (Not Detect); Enterococcus faecium Not Detected (Not Detect); Haemophilus influenzae Not Detected (Not Detect); IMP Resistance Not Detected (Not Detect); KPC Resistance Not Detected (Not Detect); Klebsiella aerogenes Not Detected (Not Detect); Listeria monocytogenes Not Detected (Not Detect); NDM Resistance Not Detected (Not Detect); Neisseria meningitidis Not Detected (Not Detect); OXA-48-like Resistance Not Detected (Not Detect); Proteus species Not Detected (Not Detect); Pseudomonas aeruginosa Not Detected (Not Detect); Salmonella species Not Detected (Not Detect); Serratia marcescens Not Detected (Not Detect); Staphylococcus epidermidis Not Detected (Not Detect); Staphylococcus lugdunensis Not Detected (Not Detect); Staphylococcus species Not Detected (Not Detect); Stenotrophomonas maltophilia Not Detected (Not Detect); Streptococcus agalactiae (Gr B Not Detected (Not Detect); Streptococcus pneumonia Not Detected (Not Detect); Streptococcus pyogenes (Gr A) Not Detected (Not Detect); Streptococcus species Not Detected (Not Detect); VIM Resistance Not Detected (Not Detect); mcr-1 Resistance Not Detected (Not Detect)
[2024-07-30 22:12] LABS: Troponin I 0.031 ng/mL (0.01-0.034)
--- NOTE | 2024-07-30 23:07 | PC.NURSE ---
Pt started shaking all over, complaining of chills. ICU nurse stated HR was 205 on telemetry. VS taken BP 147/77 (93), temperature of 101.3, o2 down in low 80s. RT called and staff assist. Applied O2 and recovered to 90s on 6L oximask. Blood sugar is 139. Called Dr Ding who gave telephone orders of CXR, labs, ABG, EKG all resulted and notified doctor. Tylenol IV given x1 for fever. Dc'd IVF per elevated BNP. 0012 BP 129/64 HR 112 99% on 3L NC. Temp 100.5 RR 25. Pt AOX4, no tremors noted. Stool neg for occult. Sent stool to lab for cx. 0031 rechecked temp 98.[address] Ding had video call via webex with patient and to continue to monitor at this time. ECHO ordered. Monitor urine output. Pt now on room air sating at 96%.
--- NOTE | 2024-07-30 23:15 | EKG_ITS ---
[place] [id number] [place] [address] Test Date: 2024-07-30 Pat Name: Yazan Anderson Department: Room: 221 Gender: Male [employer]: PDV : 1945 Requested By: Order Number: [id number] Reading MD: Elliott Rosa Measurements Intervals [place] Rate: 132 P: 18 [place]: 130 QRS: -67 QRSD: 110 T: 74 QT: 306 QTc: 453 Interpretive Statements Sinus tachycardia with premature atrial complexes with aberrant conduction Left axis deviation Low voltage QRS Incomplete right bundle branch block Inferior infarct , age undetermined Electronically Signed On 07-31-2024 8:41:06 PST by Elliott Rosa
--- NOTE | 2024-07-30 23:22 | DI.RAD.S_ITS ---
PROCEDURE: XR CHEST 1V INDICATIONS: fluid overload TECHNIQUE: One view of the chest was acquired. COMPARISON: [facility], CR, XR CHEST 1V, 07/30/2024, 8:38. [facility], CR, XR CHEST 1V, 08/07/2022, 15:16. FINDINGS: Surgical changes and devices: Small round density seen in the right neck. Lungs and pleura: Mildly prominent interstitium. No dense airspace disease or pleural effusions. Mediastinum: Cardiomediastinal contours are unchanged. Normal heart size. Bones and chest wall: Degenerative findings. IMPRESSION: Mildly prominent interstitium, probably edema or atypical infection. No pleural effusions. No dense airspace disease. Dictated by: Red Dominguez M.D. on 07/30/2024 at 23:36 Approved by: Red Dominguez M.D. on 07/30/2024 at 23:37
[2024-07-30] MEDS: ACETAMINOPHEN IV 1,000 MG/100 ML VIAL 400 MG IV (23:34)
[2024-07-30 23:38] LABS: Base Excess ABG -4.4 mmol/L (-2-3); Blood Gas Collection Site Left Brachial; HCO3 ABG 21 mmol/L (23-27); Oxygen Saturation ABG 8 % (95-100); PCO2 ABG 39.5 mmHg (35-45); PO2 ABG 9 mmHg (80-100); TCO2 ABG 20 mmol/L (23-27); pH ABG 7.34 (7.35-7.45)
[2024-07-30 23:48] LABS: Add Manual Diff / Slide Review NO; Basophils Absolute Auto 0 /uL (0-100); Basophils Percent Auto 0.2 % (0-2); Eosinophils Absolute Auto 0 /uL (0-450); Hematocrit 28.1 % (41-53); Hemoglobin 9.6 g/dL (13.5-17.5); Lymphocytes Absolute Auto 400 /uL (1100-4500); Lymphocytes Percent Auto 2.4 % (25-40); Mean Corpuscular HGB Conc 34.1 % (30-36); Mean Corpuscular Hemoglobin 32.2 PG (26-34); Mean Corpuscular Volume 94.6 fL (80-100); Monocytes Absolute Auto 500 /uL (0-900); Monocytes Percent Auto 3.2 % (3-14); Neutrophils Absolute Auto 15900 /uL (1500-7000); Neutrophils Percent Auto 94.2 % (50-75); Platelet Count 210 X10^3/uL (150-400); Red Blood Cell Count 2.97 X10^6/uL (4.5-5.9); Red Cell Distribution Width 18.8 % (11.6-14.8); White Blood Cell Count 16.9 X10^3/uL (4.5-11.0)
[2024-07-31] VITALS (9 sets, daily range): BP systolic 100–117; BP diastolic 49–61; PULSE 71–115; RESP 18–34; TEMP 36.7–38.2; O2SAT 92–98
[2024-07-31 00:09] LABS: Lactate (Lactic Acid) 1.4 mmol/L (0.7-2.1)
[2024-07-31 00:10] LABS: BUN Creatinine Ratio 18.2 (6-22); Blood Urea Nitrogen 29 mg/dL (9-20); Calcium 7.6 mg/dL (8.4-10.2); Carbon Dioxide 20 mmol/L (22-32); Chloride 107 mmol/L (98-107); Estimated Glomerular Filt Rate 44 mL/min (>60); Glucose 117 mg/dL (80-110); HEMOLYSIS < 15 (0-50); Sodium 134 mmol/L (137-145)
--- NOTE | 2024-07-31 00:10 | RT ---
responded to rapid response in 221. Placed pt on oximask 6L, spo2 92-96%. EKG done and given to RN (zaire), notified. VBG done and results shown to RN and MD notified.
[2024-07-31 00:11] LABS: Magnesium 1.9 mg/dL (1.6-2.3)
[2024-07-31 00:22] LABS: NT-proBNP (BNP-Adult 18+) 8080 pg/mL (<450)
[2024-07-31] MEDS: PIPERACILLIN/TAZO 4.5 GM in SODIUM CHLORIDE 0.9% 100 ML IV (00:24)
--- NOTE | 2024-07-31 01:02 | PM.PN.1 ---
Subjective Subjective Date Patient Seen: 07/31/24 Interval history: Patient admitted 07/30/24 per Day Hospitalist around 1500 , with Sepsis resulting likely sec to Pyelonephritis,UA with 30 WBCs , Orchitis. CTAP with Renal stranding , and likely enteritis ( has been having dark colored loose stools/ DYLAN at ED Neg for Heme occult) Patient had Bl cx done , started on Levafloxacin IV , given NS IVF Had elevated BNP at 8720, CXR : no acute changes EKG done in ED yesterday at admission: Sinus tachycardia (HR 120s)with premature atrial complexes Left axis deviation Right bundle branch block Inferior infarct , age undetermined Initial troponin mildly up: 0.040 ( No CP) Also given Mag for Hypomagnesemia Around 11:12 pm, pt's nurse called me that pt was in resp distress, tachypneic and Tachycardiac as well as with fever at 101 F plus severe chills/ rigors. Was hypoxic requiring supp O2 No CP, abd pain or flank pain , Ext : no ankle edema bilat . No calf tenderness Pt remained interactive . Pt put on oxymask at 30% Labs , incl ABG ( VBG obtained sec to ABG could not be done , given pt with rigors/ and unable to stay still) and CXR and EKG ordered stat EKG: reviewed by me: Sinus Tachycardia, with occasional PACs HR of 132, no acute ST - T wave changes labs and CXR reviewed ( see in diagnostic section below) Pt was seen on video call, after patient had recd IV Tylenol and hus fever was coming down, was more calm, chills subsided, temp down to normal range, no O2 supp required , and not appearing tachypneic/ HR had also come down to 80s to 90s Pt was interactive and answering questions appropriately Nurse listened to pt's Lungs and heart Lung auscultation : intermittent wheezing. BS present bilat and equal Heart: RRR no M or gallop Abd : non distended , non tender, BS WNL No flank tenderness bilat Ext : no edema pp 2+ no calf tenderness bilat , bilat symmet Neuro non focal Exam Vital Signs (past 8 hours): - 07/30/24 20:20 07/30/24 20:38 07/31/24 00:29 Temperature 98.2 F 98.8 F Pulse Rate 77 115 H Respiratory Rate 18 18 Blood Pressure 105/49 L 109/61 Pulse Oximetry 95 98 Oxygen Delivery Method Room Air Oxygen Flow Rate 0 2 Oxygen Delivery Method Room Air Oxygen Flow Rate 2 Objective Labs 07/30/24 23:37 07/30/24 23:37 Labs: Laboratory Results - last 24 hr 07/30/24 07/30/24 07/30/24 08:39 09:14 09:40 WBC 18.5 H RBC 2.84 L Hgb 9.2 L Hct 26.8 L MCV 94.2 MCH 32.3 MCHC 34.3 RDW 19.1 H Plt Count 187 Neut % (Auto) 92.3 H Lymph % (Auto) 1.9 L [place] % (Auto) 5.4 Eos % (Auto) 0.0 L Baso % (Auto) 0.4 Neut # (Auto) 10189 H Lymph # (Auto) 400 L [place] # (Auto) 1000 H Eos # (Auto) 0 Baso # (Auto) 100 PT 15.3 H INR 1.4 H APTT 29 ABG Sample Site ABG pH ABG pCO2 ABG pO2 ABG HCO3 ABG Total CO2 ABG O2 Saturation ABG Base Excess Sodium 135 L Potassium 3.4 Chloride 108 H Carbon Dioxide 21 L BUN 28 H Creatinine 1.53 H Estimated GFR 46 L BUN/Creatinine Ratio 18.3 Glucose 155 H Lactate 0.9 Calcium 8.3 L Magnesium 0.7 L* Total Bilirubin 0.9 AST 49 ALT 31 Alkaline Phosphatase 73 Total Creatine Kinase 42 L Troponin I 0.040 H NT-Pro-B Natriuret Pep 8720 H Total Protein 5.7 L Albumin 2.9 L Globulin 2.8 Albumin/Globulin Ratio 1.0 Procalcitonin 1.74 H Urine RBC Urine WBC Ur Squamous Epith Cells Urine Bacteria Ur Culture Indicated? Vol Urine Centrifuged A.calcoaceticus-baumannii cmplx PCR Not detected Bacteroides fragilis Not detected Juliana albicans (PCR) Not detected Juliana auris (PCR) Not detected C. glabrata (PCR) Not detected C. krusei (PCR) Not detected C. parapsilosis (PCR) Not detected C. tropicalis (PCR) Not detected SARS-CoV-2 (PCR) Negative C. neoform/gattii (PCR) Not detected Enterobacterales (PCR) Detected E. cloacae complex PCR Not detected Enterococc faecalis PCR Not detected Enterococc faecium PCR Not detected E. coli (PCR) Detected H. influenzae (PCR) Not detected Influenza A (RT-PCR) Flu a negative Influenza B (RT-PCR) Flu b negative Klebsiella aerogenes (PCR) Not detected Klebsiella oxytoca PCR Not detected Klebsiella pneumoniae Not detected List. monocytogenes PCR Not detected N. meningitidis (PCR) Not detected Proteus species (PCR) Not detected RSV (PCR) Negative Salmonella spp. (PCR) Not detected Serratia marcescens PCR Not detected Staphylococcus sp PCR Not detected Staph aureus (PCR) Not detected mecA/C & MREJ Resist Gene Not applicable mecA/C-Methicil Resis Gene Not applicable mcr-1 Colistin Res Gene PCR Not detected Staph epidermidis (PCR) Not detected Staph lugdunensis PCR Not detected S. maltophilia (PCR) Not detected Streptococcus sp PCR Not detected Group A Strep (PCR) Not detected Strep agalactiae (PCR) Not detected Strep pneumoniae (PCR) Not detected P. aeruginosa (PCR) Not detected Rebeca/B-Vanco Res Genes Not applicable blaIMP Car res Gene PCR Not detected KPC-Carbap Res Gene PCR Not detected blaNDM Car Res Gene PCR Not detected OXA-48 Carbapenem Resis Gene (PCR) Not detected blaVIM Car Res Gene PCR Not detected CTX-M Gene Resistance (PCR) Detected Blood Type O Positive Antibody Screen Negative 07/30/24 07/30/24 07/30/24 10:24 10:55 18:00 WBC RBC Hgb Hct MCV MCH MCHC RDW Plt Count Neut % (Auto) Lymph % (Auto) [place] % (Auto) Eos % (Auto) Baso % (Auto) Neut # (Auto) Lymph # (Auto) [place] # (Auto) Eos # (Auto) Baso # (Auto) PT INR APTT ABG Sample Site ABG pH ABG pCO2 ABG pO2 ABG HCO3 ABG Total CO2 ABG O2 Saturation ABG Base Excess Sodium Potassium Chloride Carbon Dioxide BUN Creatinine Estimated GFR BUN/Creatinine Ratio Glucose Lactate Calcium Magnesium 1.2 L Total Bilirubin AST ALT Alkaline Phosphatase Total Creatine Kinase Troponin I 0.041 H NT-Pro-B Natriuret Pep Total Protein Albumin Globulin Albumin/Globulin Ratio Procalcitonin Urine RBC 5-10/hpf H Urine WBC 10-30/hpf H Ur Squamous Epith Cells None seen Urine Bacteria Moderate (10-30) H Ur Culture Indicated? Specimen cultured Vol Urine Centrifuged 10ml (spun) A.calcoaceticus-baumannii cmplx PCR Bacteroides fragilis Juliana albicans (PCR) Juliana auris (PCR) C. glabrata (PCR) C. krusei (PCR) C. parapsilosis (PCR) C. tropicalis (PCR) SARS-CoV-2 (PCR) C. neoform/gattii (PCR) Enterobacterales (PCR) E. cloacae complex PCR Enterococc faecalis PCR Enterococc faecium PCR E. coli (PCR) H. influenzae (PCR) Influenza A (RT-PCR) Influenza B (RT-PCR) Klebsiella aerogenes (PCR) Klebsiella oxytoca PCR Klebsiella pneumoniae List. monocytogenes PCR N. meningitidis (PCR) Proteus species (PCR) RSV (PCR) Salmonella spp. (PCR) Serratia marcescens PCR Staphylococcus sp PCR Staph aureus (PCR) mecA/C & MREJ Resist Gene mecA/C-Methicil Resis Gene mcr-1 Colistin Res Gene PCR Staph epidermidis (PCR) Staph lugdunensis PCR S. maltophilia (PCR) Streptococcus sp PCR Group A Strep (PCR) Strep agalactiae (PCR) Strep pneumoniae (PCR) P. aeruginosa (PCR) Rebeca/B-Vanco Res Genes blaIMP Car res Gene PCR KPC-Carbap Res Gene PCR blaNDM Car Res Gene PCR OXA-48 Carbapenem Resis Gene (PCR) blaVIM Car Res Gene PCR CTX-M Gene Resistance (PCR) Blood Type Antibody Screen 07/30/24 07/30/24 07/30/24 21:30 23:33 23:37 WBC 16.9 H RBC 2.97 L Hgb 9.6 L Hct 28.1 L MCV 94.6 MCH 32.2 MCHC 34.1 RDW 18.8 H Plt Count 210 Neut % (Auto) 94.2 H Lymph % (Auto) 2.4 L [place] % (Auto) 3.2 Eos % (Auto) 0.0 L Baso % (Auto) 0.2 Neut # (Auto) 45533 H Lymph # (Auto) 400 L [place] # (Auto) 500 Eos # (Auto) 0 Baso # (Auto) 0 PT INR APTT ABG Sample Site Left brachial ABG pH VBG 7.34 L ABG pCO2 39.5 ABG pO2 9 L* ABG HCO3 21 L ABG Total CO2 20 L ABG O2 Saturation 8 L* ABG Base Excess -4.4 L Sodium 134 L Potassium 4.0 Chloride 107 Carbon Dioxide 20 L BUN 29 H Creatinine 1.59 H Estimated GFR 44 L BUN/Creatinine Ratio 18.2 Glucose 117 H Lactate 1.4 Calcium 7.6 L Magnesium 1.9 Total Bilirubin AST ALT Alkaline Phosphatase Total Creatine Kinase Troponin I 0.031 0.030 NT-Pro-B Natriuret Pep 8080 H Total Protein Albumin Globulin Albumin/Globulin Ratio Procalcitonin Urine RBC Urine WBC Ur Squamous Epith Cells Urine Bacteria Ur Culture Indicated? Vol Urine Centrifuged A.calcoaceticus-baumannii cmplx PCR Bacteroides fragilis Juliana albicans (PCR) Juliana auris (PCR) C. glabrata (PCR) C. krusei (PCR) C. parapsilosis (PCR) C. tropicalis (PCR) SARS-CoV-2 (PCR) C. neoform/gattii (PCR) Enterobacterales (PCR) E. cloacae complex PCR Enterococc faecalis PCR Enterococc faecium PCR E. coli (PCR) H. influenzae (PCR) Influenza A (RT-PCR) Influenza B (RT-PCR) Klebsiella aerogenes (PCR) Klebsiella oxytoca PCR Klebsiella pneumoniae List. monocytogenes PCR N. meningitidis (PCR) Proteus species (PCR) RSV (PCR) Salmonella spp. (PCR) Serratia marcescens PCR Staphylococcus sp PCR Staph aureus (PCR) mecA/C & MREJ Resist Gene mecA/C-Methicil Resis Gene mcr-1 Colistin Res Gene PCR Staph epidermidis (PCR) Staph lugdunensis PCR S. maltophilia (PCR) Streptococcus sp PCR Group A Strep (PCR) Strep agalactiae (PCR) Strep pneumoniae (PCR) P. aeruginosa (PCR) Rebeca/B-Vanco Res Genes blaIMP Car res Gene PCR KPC-Carbap Res Gene PCR blaNDM Car Res Gene PCR OXA-48 Carbapenem Resis Gene (PCR) blaVIM Car Res Gene PCR CTX-M Gene Resistance (PCR) Blood Type Antibody Screen [facility] Medical History Claudication of both lower extremities COPD (chronic obstructive pulmonary disease) Hyperlipidemia CAD (coronary artery disease) HTN (hypertension) Surgical History History of heart artery stent Social History household members: none Smoking Status: Current every day smoker alcohol intake: current Assessment & Plan Assessment and plan (1) Acute respiratory failure with hypoxia: Problem details: Had recd close to 2 L IVF ( 1600 mls NS/ 400 mls with Potassium ) , concern for ? Fluid overload / Flash Pulm edema / BNP at 8080 slightly less than admission BNP ( 8720) , however CXR wqith some increase in Interstitial markings c/w Fluid overload and pt wheezing ( no h/o COPD/ Asthma) Status: Acute Plan: Hold IVF Give small dose Lasix at 20 mg IV once Continue monitoring hemodynamics closely Strict Intake / output , daily weight Echo in the morning Prior Echo 2021: LVEF 50-55%, LV wall motion abn : hypokinesais ) ? Ischemic Cardiomyopathy No diastolic dysfunction (2) Fluid overload: Problem details: see above Qualifiers: Hypervolemia type: other Qualified Code(s): E87.79 - Other fluid overload Status: Acute Plan: See above (3) Severe sepsis: Problem details: Meeting criteria : Leukocytosis though slowly trending down / Tachycardia and Tachypnea/ Source of infection : Pyelonephritis/ Orchitis/ Enteritis : has GNB in one bottle / GN bacteremia Lactate not elevated Has organ damage as indicated by ERVIN / INR 1.4 Status: Acute Plan: Add Zosyn IV to Levaquin ( starting in ED), for double emipiric Pseudomonas coverage Monitor Renal Function closely APAP prn Time-Based Coding :: [TOTAL MINUTES] spent with patient and on the chart (including review of chart, obtaining history, exam, reviewing outside data, placing orders, documenting exam and treatment plan, and counseling patient) on [DATE]. Quality VTE Deep Vein Thrombosis/Pulmonary Embolism Present on Admission: No
[2024-07-31 02:12] LABS: Adenovirus F 40/41 Not Detected (Not Detect); Astrovirus Not Detected (Not Detect); Campylobacter Not Detected (Not Detect); Clostridium difficile toxin AB Not Detected (Not Detect); Cryptosporidium Not Detected (Not Detect); Cyclospora cayetanensis Not Detected (Not Detect); Entamoeba histolytica Not Detected (Not Detect); Enteroaggregative E.coli Not Detected (Not Detect); Enteropathogenic E.coli Not Detected (Not Detect); Enterotoxigenic E.coli It/st Not Detected (Not Detect); Giardia lamblia Not Detected (Not Detect); Norovirus GI/GII Detected (Not Detect); Plesiomonsa shigelloides Not Detected (Not Detect); Rotavirus A Not Detected (Not Detect); Salmonella Not Detected (Not Detect); Sapovirus Not Detected (Not Detect); Shiga-like toxin-prod E.coli Not Detected (Not Detect); Shigella/Enteroinvasive E.coli Not Detected (Not Detect); Vibrio Not Detected (Not Detect); Vibrio cholerae Not Detected (Not Detect); Yersinia enterocolitica Detected (Not Detect)
[2024-07-31] MEDS: FUROSEMIDE 20 MG/2 ML VIAL IV (02:42)
[2024-07-31] MEDS: MORPHINE 2 MG/ML INJ IV ×3 (03:43→20:07)
[2024-07-31] MEDS: PIPERACILLIN/TAZO 3.375 GM in SODIUM CHLORIDE 0.9% 100 ML IV ×2 (04:53→11:30)
[2024-07-31 05:21] LABS: Add Manual Diff / Slide Review NO; Basophils Absolute Auto 0 /uL (0-100); Basophils Percent Auto 0.2 % (0-2); Eosinophils Absolute Auto 0 /uL (0-450); Hematocrit 25.7 % (41-53); Hemoglobin 8.8 g/dL (13.5-17.5); Lymphocytes Absolute Auto 400 /uL (1100-4500); Lymphocytes Percent Auto 2.4 % (25-40); Mean Corpuscular HGB Conc 34.2 % (30-36); Mean Corpuscular Hemoglobin 32.4 PG (26-34); Mean Corpuscular Volume 94.7 fL (80-100); Monocytes Absolute Auto 700 /uL (0-900); Monocytes Percent Auto 4.3 % (3-14); Neutrophils Absolute Auto 14700 /uL (1500-7000); Neutrophils Percent Auto 93.1 % (50-75); Platelet Count 195 X10^3/uL (150-400); Red Blood Cell Count 2.72 X10^6/uL (4.5-5.9); Red Cell Distribution Width 19.6 % (11.6-14.8); White Blood Cell Count 15.8 X10^3/uL (4.5-11.0)
[2024-07-31 05:47] LABS: Troponin I 0.029 ng/mL (0.01-0.034)
[2024-07-31 05:49] LABS: BUN Creatinine Ratio 18.3 (6-22); Blood Urea Nitrogen 30 mg/dL (9-20); Calcium 7.5 mg/dL (8.4-10.2); Carbon Dioxide 20 mmol/L (22-32); Chloride 106 mmol/L (98-107); Estimated Glomerular Filt Rate 43 mL/min (>60); Glucose 111 mg/dL (80-110); HEMOLYSIS < 15 (0-50); Potassium 3.7 mmol/L (3.4-5.1); Sodium 133 mmol/L (137-145)
[2024-07-31] MEDS: ACETAMINOPHEN 325 MG TABLET 650 MG PO ×2 (06:36→15:32)
--- NOTE | 2024-07-31 07:43 | P.PN_ITS ---
Subjective Subjective Interval history: Summary: Patient was admitted on July 30 for pyelonephritis as well as possible left orchitis. He was discussed with [facility] with recommendations for antibiotics. He was on levofloxacin. There is a question of dark stools, he had a negative Hemoccult in the ED. From night doctor: The night doctor called for evidence of acute respiratory failure with hypoxia. There is a concern for fluid overload and he was given Lasix. Antibiotics were expanded to Zosyn being added to Levaquin. S: Feels pretty good this morning, denies any dyspnea. He was off from oxygen. He also notes his left testicle is hurting less. Denies any confusion, or fevers overnight. Exam Vital Signs (past 8 hours): - 07/31/24 00:29 07/31/24 04:00 Temperature 98.8 F 98.4 F Pulse Rate 115 H 88 Respiratory Rate 18 19 Blood Pressure 109/61 114/49 L Pulse Oximetry 98 96 Oxygen Flow Rate 2 0 Oxygen Delivery Method Room Air Oxygen Flow Rate 0 Narrative Exam Narrative: NAD, alert and oriented. Fluent speech. Lungs are somewhat wheezy, normal rate and effort. Heart is regular, no murmur gallop or rub. Abdomen is soft, non distended. Extremities are free of edema. Left testicle is tender, but much less so than yesterday Objective Labs 07/31/24 04:49 07/31/24 04:49 Labs: Laboratory Results - last 24 hr 07/30/24 07/30/24 07/30/24 08:39 09:14 09:40 WBC 18.5 H RBC 2.84 L Hgb 9.2 L Hct 26.8 L MCV 94.2 MCH 32.3 MCHC 34.3 RDW 19.1 H Plt Count 187 Neut % (Auto) 92.3 H Lymph % (Auto) 1.9 L Sully % (Auto) 5.4 Eos % (Auto) 0.0 L Baso % (Auto) 0.4 Neut # (Auto) 54733 H Lymph # (Auto) 400 L Sully # (Auto) 1000 H Eos # (Auto) 0 Baso # (Auto) 100 PT 15.3 H INR 1.4 H APTT 29 ABG Sample Site ABG pH ABG pCO2 ABG pO2 ABG HCO3 ABG Total CO2 ABG O2 Saturation ABG Base Excess Sodium 135 L Potassium 3.4 Chloride 108 H Carbon Dioxide 21 L BUN 28 H Creatinine 1.53 H Estimated GFR 46 L BUN/Creatinine Ratio 18.3 Glucose 155 H Lactate 0.9 Calcium 8.3 L Magnesium 0.7 L* Total Bilirubin 0.9 AST 49 ALT 31 Alkaline Phosphatase 73 Total Creatine Kinase 42 L Troponin I 0.040 H NT-Pro-B Natriuret Pep 8720 H Total Protein 5.7 L Albumin 2.9 L Globulin 2.8 Albumin/Globulin Ratio 1.0 Procalcitonin 1.74 H Urine RBC Urine WBC Ur Squamous Epith Cells Urine Bacteria Ur Culture Indicated? Vol Urine Centrifuged Stl C. cayetanensis PCR Stool Rotavirus (PCR) Stool Adenovirus (PCR) Stool Astrovirus (PCR) Stool Cryptosporidium PCR Stl E.coli Shiga Tox PCR St Sh/Enteroin Ecoli PCR Stl Enterotoxigenic E PCR Stool EPEC (PCR) Stl E. histolytica PCR Stool Giardia Lamblia PCR Stool Sapovirus (PCR) Stl P. shigelloides PCR St Y.enterocolitica PCR Stool Vibrio (PCR) Stl Vibrio cholerae PCR Stl Enteroaggr Ecoli PCR Stl Norovirus GI/GII PCR A.calcoaceticus-baumannii cmplx PCR Not detected Bacteroides fragilis Not detected Campylobacter (PCR) Juliana albicans (PCR) Not detected Juliana auris (PCR) Not detected C. glabrata (PCR) Not detected C. krusei (PCR) Not detected C. parapsilosis (PCR) Not detected C. tropicalis (PCR) Not detected C. difficile Tox (PCR) SARS-CoV-2 (PCR) Negative C. neoform/gattii (PCR) Not detected Enterobacterales (PCR) Detected E. cloacae complex PCR Not detected Enterococc faecalis PCR Not detected Enterococc faecium PCR Not detected E. coli (PCR) Detected H. influenzae (PCR) Not detected Influenza A (RT-PCR) Flu a negative Influenza B (RT-PCR) Flu b negative Klebsiella aerogenes (PCR) Not detected Klebsiella oxytoca PCR Not detected Klebsiella pneumoniae Not detected List. monocytogenes PCR Not detected N. meningitidis (PCR) Not detected Proteus species (PCR) Not detected RSV (PCR) Negative Salmonella (PCR) Salmonella spp. (PCR) Not detected Serratia marcescens PCR Not detected Staphylococcus sp PCR Not detected Staph aureus (PCR) Not detected mecA/C & MREJ Resist Gene Not applicable mecA/C-Methicil Resis Gene Not applicable mcr-1 Colistin Res Gene PCR Not detected Staph epidermidis (PCR) Not detected Staph lugdunensis PCR Not detected S. maltophilia (PCR) Not detected Streptococcus sp PCR Not detected Group A Strep (PCR) Not detected Strep agalactiae (PCR) Not detected Strep pneumoniae (PCR) Not detected P. aeruginosa (PCR) Not detected Rebeca/B-Vanco Res Genes Not applicable blaIMP Car res Gene PCR Not detected KPC-Carbap Res Gene PCR Not detected blaNDM Car Res Gene PCR Not detected OXA-48 Carbapenem Resis Gene (PCR) Not detected blaVIM Car Res Gene PCR Not detected CTX-M Gene Resistance (PCR) Detected Blood Type O Positive Antibody Screen Negative 07/30/24 07/30/24 07/30/24 10:24 10:55 18:00 WBC RBC Hgb Hct MCV MCH MCHC RDW Plt Count Neut % (Auto) Lymph % (Auto) Sully % (Auto) Eos % (Auto) Baso % (Auto) Neut # (Auto) Lymph # (Auto) Sully # (Auto) Eos # (Auto) Baso # (Auto) PT INR APTT ABG Sample Site ABG pH ABG pCO2 ABG pO2 ABG HCO3 ABG Total CO2 ABG O2 Saturation ABG Base Excess Sodium Potassium Chloride Carbon Dioxide BUN Creatinine Estimated GFR BUN/Creatinine Ratio Glucose Lactate Calcium Magnesium 1.2 L Total Bilirubin AST ALT Alkaline Phosphatase Total Creatine Kinase Troponin I 0.041 H NT-Pro-B Natriuret Pep Total Protein Albumin Globulin Albumin/Globulin Ratio Procalcitonin Urine RBC 5-10/hpf H Urine WBC 10-30/hpf H Ur Squamous Epith Cells None seen Urine Bacteria Moderate (10-30) H Ur Culture Indicated? Specimen cultured Vol Urine Centrifuged 10ml (spun) Stl C. cayetanensis PCR Stool Rotavirus (PCR) Stool Adenovirus (PCR) Stool Astrovirus (PCR) Stool Cryptosporidium PCR Stl E.coli Shiga Tox PCR St Sh/Enteroin Ecoli PCR Stl Enterotoxigenic E PCR Stool EPEC (PCR) Stl E. histolytica PCR Stool Giardia Lamblia PCR Stool Sapovirus (PCR) Stl P. shigelloides PCR St Y.enterocolitica PCR Stool Vibrio (PCR) Stl Vibrio cholerae PCR Stl Enteroaggr Ecoli PCR Stl Norovirus GI/GII PCR A.calcoaceticus-baumannii cmplx PCR Bacteroides fragilis Campylobacter (PCR) Juliana albicans (PCR) Juliana auris (PCR) C. glabrata (PCR) C. krusei (PCR) C. parapsilosis (PCR) C. tropicalis (PCR) C. difficile Tox (PCR) SARS-CoV-2 (PCR) C. neoform/gattii (PCR) Enterobacterales (PCR) E. cloacae complex PCR Enterococc faecalis PCR Enterococc faecium PCR E. coli (PCR) H. influenzae (PCR) Influenza A (RT-PCR) Influenza B (RT-PCR) Klebsiella aerogenes (PCR) Klebsiella oxytoca PCR Klebsiella pneumoniae List. monocytogenes PCR N. meningitidis (PCR) Proteus species (PCR) RSV (PCR) Salmonella (PCR) Salmonella spp. (PCR) Serratia marcescens PCR Staphylococcus sp PCR Staph aureus (PCR) mecA/C & MREJ Resist Gene mecA/C-Methicil Resis Gene mcr-1 Colistin Res Gene PCR Staph epidermidis (PCR) Staph lugdunensis PCR S. maltophilia (PCR) Streptococcus sp PCR Group A Strep (PCR) Strep agalactiae (PCR) Strep pneumoniae (PCR) P. aeruginosa (PCR) Rebeca/B-Vanco Res Genes blaIMP Car res Gene PCR KPC-Carbap Res Gene PCR blaNDM Car Res Gene PCR OXA-48 Carbapenem Resis Gene (PCR) blaVIM Car Res Gene PCR CTX-M Gene Resistance (PCR) Blood Type Antibody Screen 07/30/24 07/30/24 07/30/24 21:30 23:33 23:37 WBC 16.9 H RBC 2.97 L Hgb 9.6 L Hct 28.1 L MCV 94.6 MCH 32.2 MCHC 34.1 RDW 18.8 H Plt Count 210 Neut % (Auto) 94.2 H Lymph % (Auto) 2.4 L Sully % (Auto) 3.2 Eos % (Auto) 0.0 L Baso % (Auto) 0.2 Neut # (Auto) 87835 H Lymph # (Auto) 400 L Sully # (Auto) 500 Eos # (Auto) 0 Baso # (Auto) 0 PT INR APTT ABG Sample Site Left brachial ABG pH 7.34 L ABG pCO2 39.5 ABG pO2 9 L* ABG HCO3 21 L ABG Total CO2 20 L ABG O2 Saturation 8 L* ABG Base Excess -4.4 L Sodium 134 L Potassium 4.0 Chloride 107 Carbon Dioxide 20 L BUN 29 H Creatinine 1.59 H Estimated GFR 44 L BUN/Creatinine Ratio 18.2 Glucose 117 H Lactate 1.4 Calcium 7.6 L Magnesium 1.9 Total Bilirubin AST ALT Alkaline Phosphatase Total Creatine Kinase Troponin I 0.031 0.030 NT-Pro-B Natriuret Pep 8080 H Total Protein Albumin Globulin Albumin/Globulin Ratio Procalcitonin Urine RBC Urine WBC Ur Squamous Epith Cells Urine Bacteria Ur Culture Indicated? Vol Urine Centrifuged Stl C. cayetanensis PCR Stool Rotavirus (PCR) Stool Adenovirus (PCR) Stool Astrovirus (PCR) Stool Cryptosporidium PCR Stl E.coli Shiga Tox PCR St Sh/Enteroin Ecoli PCR Stl Enterotoxigenic E PCR Stool EPEC (PCR) Stl E. histolytica PCR Stool Giardia Lamblia PCR Stool Sapovirus (PCR) Stl P. shigelloides PCR St Y.enterocolitica PCR Stool Vibrio (PCR) Stl Vibrio cholerae PCR Stl Enteroaggr Ecoli PCR Stl Norovirus GI/GII PCR A.calcoaceticus-baumannii cmplx PCR Bacteroides fragilis Campylobacter (PCR) Juliana albicans (PCR) Juliana auris (PCR) C. glabrata (PCR) C. krusei (PCR) C. parapsilosis (PCR) C. tropicalis (PCR) C. difficile Tox (PCR) SARS-CoV-2 (PCR) C. neoform/gattii (PCR) Enterobacterales (PCR) E. cloacae complex PCR Enterococc faecalis PCR Enterococc faecium PCR E. coli (PCR) H. influenzae (PCR) Influenza A (RT-PCR) Influenza B (RT-PCR) Klebsiella aerogenes (PCR) Klebsiella oxytoca PCR Klebsiella pneumoniae List. monocytogenes PCR N. meningitidis (PCR) Proteus species (PCR) RSV (PCR) Salmonella (PCR) Salmonella spp. (PCR) Serratia marcescens PCR Staphylococcus sp PCR Staph aureus (PCR) mecA/C & MREJ Resist Gene mecA/C-Methicil Resis Gene mcr-1 Colistin Res Gene PCR Staph epidermidis (PCR) Staph lugdunensis PCR S. maltophilia (PCR) Streptococcus sp PCR Group A Strep (PCR) Strep agalactiae (PCR) Strep pneumoniae (PCR) P. aeruginosa (PCR) Rebeca/B-Vanco Res Genes blaIMP Car res Gene PCR KPC-Carbap Res Gene PCR blaNDM Car Res Gene PCR OXA-48 Carbapenem Resis Gene (PCR) blaVIM Car Res Gene PCR CTX-M Gene Resistance (PCR) Blood Type Antibody Screen 07/31/24 07/31/24 00:05 04:49 WBC 15.8 H RBC 2.72 L Hgb 8.8 L Hct 25.7 L MCV 94.7 MCH 32.4 MCHC 34.2 RDW 19.6 H Plt Count 195 Neut % (Auto) 93.1 H Lymph % (Auto) 2.4 L Sully % (Auto) 4.3 Eos % (Auto) 0.0 L Baso % (Auto) 0.2 Neut # (Auto) 85136 H Lymph # (Auto) 400 L Sully # (Auto) 700 Eos # (Auto) 0 Baso # (Auto) 0 PT INR APTT ABG Sample Site ABG pH ABG pCO2 ABG pO2 ABG HCO3 ABG Total CO2 ABG O2 Saturation ABG Base Excess Sodium 133 L Potassium 3.7 Chloride 106 Carbon Dioxide 20 L BUN 30 H Creatinine 1.64 H Estimated GFR 43 L BUN/Creatinine Ratio 18.3 Glucose 111 H Lactate Calcium 7.5 L Magnesium Total Bilirubin AST ALT Alkaline Phosphatase Total Creatine Kinase Troponin I 0.029 NT-Pro-B Natriuret Pep Total Protein Albumin Globulin Albumin/Globulin Ratio Procalcitonin Urine RBC Urine WBC Ur Squamous Epith Cells Urine Bacteria Ur Culture Indicated? Vol Urine Centrifuged Stl C. cayetanensis PCR Not detected Stool Rotavirus (PCR) Not detected Stool Adenovirus (PCR) Not detected Stool Astrovirus (PCR) Not detected Stool Cryptosporidium PCR Not detected Stl E.coli Shiga Tox PCR Not detected St Sh/Enteroin Ecoli PCR Not detected Stl Enterotoxigenic E PCR Not detected Stool EPEC (PCR) Not detected Stl E. histolytica PCR Not detected Stool Giardia Lamblia PCR Not detected Stool Sapovirus (PCR) Not detected Stl P. shigelloides PCR Not detected St Y.enterocolitica PCR Detected Stool Vibrio (PCR) Not detected Stl Vibrio cholerae PCR Not detected Stl Enteroaggr Ecoli PCR Not detected Stl Norovirus GI/GII PCR Detected A.calcoaceticus-baumannii cmplx PCR Bacteroides fragilis Campylobacter (PCR) Not detected Juliana albicans (PCR) Juliana auris (PCR) C. glabrata (PCR) C. krusei (PCR) C. parapsilosis (PCR) C. tropicalis (PCR) C. difficile Tox (PCR) Not detected SARS-CoV-2 (PCR) C. neoform/gattii (PCR) Enterobacterales (PCR) E. cloacae complex PCR Enterococc faecalis PCR Enterococc faecium PCR E. coli (PCR) H. influenzae (PCR) Influenza A (RT-PCR) Influenza B (RT-PCR) Klebsiella aerogenes (PCR) Klebsiella oxytoca PCR Klebsiella pneumoniae List. monocytogenes PCR N. meningitidis (PCR) Proteus species (PCR) RSV (PCR) Salmonella (PCR) Not detected Salmonella spp. (PCR) Serratia marcescens PCR Staphylococcus sp PCR Staph aureus (PCR) mecA/C & MREJ Resist Gene mecA/C-Methicil Resis Gene mcr-1 Colistin Res Gene PCR Staph epidermidis (PCR) Staph lugdunensis PCR S. maltophilia (PCR) Streptococcus sp PCR Group A Strep (PCR) Strep agalactiae (PCR) Strep pneumoniae (PCR) P. aeruginosa (PCR) Rebeca/B-Vanco Res Genes blaIMP Car res Gene PCR KPC-Carbap Res Gene PCR blaNDM Car Res Gene PCR OXA-48 Carbapenem Resis Gene (PCR) blaVIM Car Res Gene PCR CTX-M Gene Resistance (PCR) Blood Type Antibody Screen [facility] Medical History Claudication of both lower extremities COPD (chronic obstructive pulmonary disease) Hyperlipidemia CAD (coronary artery disease) HTN (hypertension) Surgical History History of heart artery stent Social History household members: none Smoking Status: Current every day smoker alcohol intake: current Assessment & Plan Assessment & Plan narrative: 1. Orchitis, present on admission and active. 2. Pyelonephritis, present on admission and active. 3. Darl stools (Heme neg in ED), present on admission and active. 4. Severe protein caloric malnutrition with wasting, present on admission and active. 5. Tobacco dependence, present on admission and active. 6. Possible alcohol abuse, present on admission and active. 7. Chronic hypertension, present on admission and active. 8. Sepsis with tachycardia, 134, temperature of 99.4?, WBC of 18.5, and source of orchitis and pyelonephritis. He was also evidence of organ damage with a creatinine of 1.53. 9. Hypomagnesemia, present on admission and active. 10. Acute hypoxic respiratory failure, resolved. 11. Positive Norovirus, active. PLAN: -Enteric precautions. -continue antibiotics for UTI and orchitis.\. -follow cultures. -analgesics. -resume HTN meds when needed -nicotine patch -monitor for evidence of alcohol withdrawal, it sounds like it has been several days since he has been drinking. -replete electrolytes and monitor. -ECHO Anticipate 2 MN stay, supports IP status. ZI: 08/02. Full code Daughter is proxy. Time-Based Coding :: [TOTAL MINUTES] spent with patient and on the chart (including review of chart, obtaining history, exam, reviewing outside data, placing orders, documenting exam and treatment plan, and counseling patient) on [DATE]. Quality VTE Deep Vein Thrombosis/Pulmonary Embolism Present on Admission: No
[2024-07-31] MEDS: HEPARIN 5,000 UNIT/ML VIAL 5000 UNIT SUBCUT ×2 (09:29→20:08)
--- NOTE | 2024-07-31 10:00 | DI.ECHO.S_ITS ---
[facility] : : [address] : : [place] : : [id number] : : Phone: [phone] Echocardiogram Report + + :Name: KATLIN HENDRICKSON Study Date: 07/31/2024 Height: 68 in : :Hospital ReadingLocation: Weight: 123 lb : : Gender: Male BSA: 1.7 m2 : :: 1945 Age: 79 yrs BP: 100/60 mmHg: :Reason For Study: ELEVATED BNP : :Ordering Physician: PRAVEEN, : :JENNY PASTRANA Performed By: Kimberly Le : :Referring: JENNY MORTON MD : + + Interpretation Summary 1) Normal left ventricular size and thickness with low normal systolic function (EF 50-55%). 2) Basal inferior wall and basal to mid inferolateral wall are hypokinetic. 3) Grossly, normal right ventricular size with low normal function. 4) No significant valvular abnormalities. 5) Compared to the Echo done 12/05/2021, no significant change. Procedure: A two-dimensional transthoracic echocardiogram with color flow and Doppler was performed. The study quality was technically adequate. Comparison is made with the echocardiogram of 12/05/2021. The heart rate ranged between 88-102. bpm during the study. Left Ventricle: The left ventricle is normal in size and wall thickness. The ejection fraction is estimated to be 50-55%. Basal inferior wall and basal to mid inferolateral wall are hypokinetic. Diastolic parameters suggest a relaxation abnormality of the left ventricle, consistent with probable normal filling pressures. Right Ventricle: The right ventricle is grossly normal size. Right ventricular systolic function is at the lower limits of normal. Atria: The left atrial size is normal. Right atrial size is normal. There is no Doppler evidence for an interatrial shunt. Mitral Valve: The mitral valve leaflets appear moderately thickened, but open well. There is mild to moderate mitral annular calcification. There is trace mitral regurgitation. Aortic Valve: The aortic valve is not well visualized. There is mild aortic valve sclerosis. There is no aortic valve stenosis. No aortic regurgitation is present. Tricuspid Valve: The tricuspid valve leaflets are thin and pliable. There is mild tricuspid regurgitation. The right ventricular systolic pressure is estimated to be at least 29 mmHg based on an estimated right atrial pressure of 3 mm Hg. Pulmonic Valve: The pulmonic valve is not well visualized. There is no pulmonic valvular regurgitation. Great Vessels: The aortic root is normal size. The ascending aorta could not be visualized. The IVC is of normal diameter and collapses greater than 50% with a sniff. This suggests a low right atrial pressure of 3 mm Hg. Pericardium/ Pleura There is no pericardial effusion. There is no pleural effusion. MMode/2D Measurements & Calculations LVIDd: 4.4 cm LVOT diam: 2.0 cm LVIDs: 3.2 cm Ao root diam: 2.7 cm FS: 28.7 % Ao Arch Diam (Prox Trans): 2.4 cm IVSd: 0.76 cm LVPWd: 0.97 cm LV hancock. diameter/BSA (cm/m^2): 2.7 LV sys. diameter/BSA (cm/m^2): 1.9 LA A2 area: 18.0 cm2 RA long axis: 4.7 cm LA A4 area: 17.2 cm2 RA area: 15.8 cm2 LA length (vol): 4.9 cm RA vol: 45.1 ml LA vol: 53.5 ml RA : 27.1 ml/m2 LA vol index: 32.2 ml/m2 IVC diam: 1.8 cm RVD1 (basal): 3.9 cm RVD2 (mid): 2.7 cm TAPSE: 1.8 cm Doppler Measurements & Calculations Ao V2 max: 185.5 cm/sec LVOT Max Gianni: 110.1 cm/sec Ao V2 mean: 124.7 cm/sec LV V1 max P.9 mmHg Ao max P.8 mmHg LV V1 VTI: 17.8 cm Ao mean P.1 mmHg FLORA(I,D): 2.1 cm2 Ao V2 VTI: 27.3 cm FLORA(V,D): 1.9 cm2 sev ratio: 0.65 FLORA indexed to BSA (cm^2/m^2): 1.3 MV E max gianni: 53.7 cm/sec TR max gianni: 255.5 cm/sec MV A max gianni: 83.5 cm/sec TR max P.1 mmHg MV E/A: 0.64 PA V2 max: 88.8 cm/sec Med Peak E' Gianni: 8.6 cm/sec PA V2 mean: 67.4 cm/sec E/E' med: 6.2 PA mean P.0 mmHg Lat Peak E' Gianni: 10.1 cm/sec PA pr(Accel): 19.1 mmHg E/E' lat: 5.3 E/e' average: 5.8 MV dec time: 0.17 sec SV(LVOT): 58.3 ml Reading Physician:01:54 PM
[2024-07-31] MEDS: FUROSEMIDE 20 MG TABLET PO (11:10)
[2024-07-31] MEDS: POTASSIUM CHLORIDE 20 MEQ TAB 40 MEQ PO (11:10)
[2024-07-31] MEDS: FOLIC ACID 1 MG TABLET PO (11:10)
[2024-07-31] MEDS: MAGNESIUM OXIDE 400 MG TABLET PO ×2 (11:10→20:08)
[2024-07-31] MEDS: ASPIRIN EC 81 MG TABLET PO (11:10)
[2024-07-31] MEDS: MIDODRINE HCL 5 MG TABLET 2.5 MG PO ×3 (11:13→20:08)
[2024-07-31] MEDS: levoFLOXacin 750 MG/150 ML PIGGYBACK 100 MG IV (11:18)
--- NOTE | 2024-07-31 11:35 | PT-IP ANOTE ---
PT consult received. Reviewed chart and checked on pt who is being mobilized in the bed with nsg. Pt requests PT eval next date. Con't PT efforts.
[2024-07-31] MEDS: ERTAPENEM 0.5 GM in SODIUM CHLORIDE 0.9% 100 ML IV (13:10)
--- NOTE | 2024-07-31 14:08 | CM.DANOTE ---
Patient is a 79 yo male who was admitted INPT Status on 07/30/24 for UTI/Pyelonephritis/Norovirus. Pt has [employer] for insurance and his PCP is Jayleen Alas. EMR was reviewed. Per MD, pt with hx of COPD, stents, smokes up to 2 packs a day and 2-3 beers daily and admitted for tx of IV-Abx, oxygen, to have Echo and medical workup. PT ordered and pending. SW met bedside with pt and explained role and he confirms he lives in [place] alone but has very supportive friend Buster that visits him and provides transport to the store or shopping. Pt states he has cane, walker, w/c at home but mostly furniture surfs and is quite sedentary. Pt has not been driving as he had a suspended license and was then caught driving without his license and now has a court date with his trade mark attorney this week regarding this. Friends have been providing transport. Pt confirms that his Dtr Gia is his DPOA and lives down in [place] but was bedside this morning and staying at pt's house and she is not working and therefore will be staying up here while pt admitted. Pt has a hx of [place] after GLF and hip fx in Jul 2022. Pt hopeful to d/c home when stable and avoid SNF if possible. Pt severely protein calorie malnourished. Plan: SW to follow closely for ongoing medical workup and PT eval to determine discharge planning needs of SNF vs HH pending progress and needs. BRENDA Cavazos Discharge Planning/Care Management CM Discharge Assessment Start: 07/31/24 14:05 Freq: Status: Active Protocol: Document 07/31/24 14:05 (Rec: 07/31/24 14:08 [id number]) Discharge Planning Assessment Assigned [employer] Hy[employer]icker BRENDA Duckworth DPOA/Assigned Designee Name Jason Nielsen Contact Information [phone] Advance Directives? Yes Advance Directives on File No History Provided By Patient,Family Member,Medical Record Has Patient been admitted in last 30 No days? Prior Living Arrangements House Household Members none Type of transporation used prior to Relies on Others admit Comment Suspended license, caught driving without a licesnse, has court Independent with ADL's Yes: somewhat, friends assist Is patient alert and oriented? Yes Needs Assistance With Meal Prep,Managing Medications ,Home Chores / Shopping Caregiver for Another No DME Already Rented / Owned Wheelchair,FWW / Walker,Cane Patient/Family Preference Long-Term Facility,Home with Home Health Comment Pending PT eval and recommendations Comment Patient's body is full of injuries and fractures from prior falls and most recent GLF. Patient lives alone. He would benefit from therapy evals when medically appropriate and likely will need SNF level of care and rehab if agreeable. Patient has been to [facility] approx two years ago after GLF and subsequent femur fx/ repair and really wants to avoid SNF Discharge Plan Home with Home Health Transportation Arrangement TBD Whiteboard Updated in Patient Room with Yes name and ext. # of [employer] Hydraulicker Review Status In Process Please Provide Date Initial DC 07/31/24 Assessment Was Performed Next Review Type Continued Stay Review
[2024-07-31 15:28] LABS: Allen Test for ABG Passed? Yes, Passed
[2024-07-31] MEDS: ATORVASTATIN 20 MG TABLET 80 MG PO (20:07)
[2024-07-31] MEDS: MIRTAZAPINE 15 MG TABLET 7.5 MG PO (20:08)
[2024-07-31] MEDS: carvediloL 3.125 MG TABLET PO (20:08)
[2024-07-31] MEDS: SODIUM CHLORIDE 0.9% FLUSH 10 ML IV (20:09)
[2024-08-01] VITALS (12 sets, daily range): BP systolic 98–133; BP diastolic 54–71; PULSE 61–99; RESP 16–20; TEMP 36.2–38.1; O2SAT 91–96
[2024-08-01] MEDS: ACETAMINOPHEN 325 MG TABLET 650 MG PO ×3 (03:33→22:14)
[2024-08-01 05:01] LABS: Add Manual Diff / Slide Review NO; Basophils Absolute Auto 0 /uL (0-100); Basophils Percent Auto 0.3 % (0-2); Eosinophils Absolute Auto 100 /uL (0-450); Eosinophils Percent Auto 0.9 % (2-4); Hematocrit 23.4 % (41-53); Lymphocytes Absolute Auto 400 /uL (1100-4500); Lymphocytes Percent Auto 3.2 % (25-40); Mean Corpuscular HGB Conc 34.2 % (30-36); Mean Corpuscular Hemoglobin 32.2 PG (26-34); Mean Corpuscular Volume 94.3 fL (80-100); Monocytes Absolute Auto 700 /uL (0-900); Monocytes Percent Auto 5.5 % (3-14); Neutrophils Absolute Auto 11000 /uL (1500-7000); Neutrophils Percent Auto 90.1 % (50-75); Platelet Count 208 X10^3/uL (150-400); Red Blood Cell Count 2.48 X10^6/uL (4.5-5.9); Red Cell Distribution Width 19.3 % (11.6-14.8); White Blood Cell Count 12.2 X10^3/uL (4.5-11.0)
[2024-08-01 05:17] LABS: BUN Creatinine Ratio 18.4 (6-22); Blood Urea Nitrogen 30 mg/dL (9-20); Calcium 7.4 mg/dL (8.4-10.2); Carbon Dioxide 21 mmol/L (22-32); Chloride 108 mmol/L (98-107); Estimated Glomerular Filt Rate 43 mL/min (>60); Glucose 108 mg/dL (80-110); HEMOLYSIS < 15 (0-50); Potassium 3.7 mmol/L (3.4-5.1); Sodium 133 mmol/L (137-145)
[2024-08-01] MEDS: PANTOPRAZOLE DR 40 MG TABLET PO (05:44)
[2024-08-01 06:14] LABS: Magnesium 1.2 mg/dL (1.6-2.3)
[2024-08-01] MEDS: ASPIRIN EC 81 MG TABLET PO (08:57)
[2024-08-01] MEDS: carvediloL 3.125 MG TABLET PO ×2 (08:58→22:15)
[2024-08-01] MEDS: CYANOCOBALAMIN (VITAMIN B-12) 100 MCG TABLET PO (08:58)
[2024-08-01] MEDS: FOLIC ACID 1 MG TABLET PO (08:59)
[2024-08-01] MEDS: MAGNESIUM OXIDE 400 MG TABLET PO ×2 (08:59→22:11)
[2024-08-01] MEDS: MIDODRINE HCL 5 MG TABLET 2.5 MG PO ×3 (08:59→22:11)
[2024-08-01] MEDS: SODIUM CHLORIDE 0.9% FLUSH 10 ML IV ×2 (09:00→22:37)
[2024-08-01] MEDS: POTASSIUM CHLORIDE 20 MEQ TAB 40 MEQ PO (09:00)
[2024-08-01] MEDS: VIT C/E/ZN/COPPR/LUTEIN/ZEAXAN CAPSULE 1 CAP PO (09:00)
[2024-08-01] MEDS: MAGNESIUM SULFATE 2 GM/50 ML PIGGYBACK IV (11:30)
[2024-08-01] MEDS: ERTAPENEM 0.5 GM in SODIUM CHLORIDE 0.9% 100 ML IV (13:20)
[2024-08-01] MEDS: MORPHINE 2 MG/ML INJ IV (13:27)
--- NOTE | 2024-08-01 13:45 | PT-IP ANOTE ---
PT checks on pt for evaluation after last date's refusal. Visitor nearby and states that pt just got morphine for back pain. She and pt decline PT and request next date. If there is a third refusal next date, consider d/c PT.
--- NOTE | 2024-08-01 14:35 | DIET.CONS ---
Dietary Consultation Note Admission Date: 07/30/2024 13:22 Assessment: 79 y M admitted for pyelonephritis. Dietitian screened d/t per team rounds pt is severely malnourished. Met with pt at bedside. Reports no appetite for over a year due diarrhea, abdominal pain, and taste changes. Also reports no teeth and difficulty eating food being provided here. Pt unable to provide diet recall, but reports only having bites of food here and there i.e 1 egg and some days no PO intakes. Drinks 2-3 beers per day. Nutrition focused physical exam: -Moderate muscle mass loss temples, severe muscle mass loss deltoid, pectoralis major, trapezius -Moderate to severe subcutaneous fat loss (buccal and orbital fat pads) Ht: 172.72 cm Wt: 56 kg BMI: 18.7 UBW: 56.699 kg 2022, limited wt hx Last BM: 08/01/24 (08/01/24 09:00) MNA: Liborio Score: 16 Diet: 07/30/24 08:28 NPO Diet Diet Modifications: NPO Type: NPO except for Meds 07/30/24 Dinner General (Regular) Diet Diet Modifications: Nutrition Percent Meal Consumed 50% 08/01/24 09:00 Percent Meal Consumed 25% 07/30/24 18:00 Labs: RBC 2.48 X10^6/uL (4.5-5.9) L 08/01/24 04:34 Hgb 8.0 g/dL (13.5-17.5) L 08/01/24 04:34 Hct 23.4 % (41-53) L 08/01/24 04:34 Creatinine 1.63 mg/dL (0.66-1.25) H 08/01/24 04:34 Lactate 1.4 mmol/L (0.7-2.1) 07/30/24 23:37 NT-Pro-B Natriuret Pep 8080 pg/mL (<450) H 07/30/24 23:37 Nutrition Diagnosis: Severe chronic Protein Calorie Malnutrition r/t inadequate oral intake due to diarrhea, abdominal cramping, and taste changes as evidenced by <50% of estimated energy intake >6 months per diet recall, moderate muscle mass loss temples, severe muscle mass loss deltoid, pectoralis major, trapezius, moderate to severe subcutaneous fat loss (buccal and orbital fat pads), BMI underweight for age (18.7). Interventions: -Adjusted foods to soft and bite sized, coordinated with kitchen -Not open to regular Ensure, open to clear Ensures, TID EER: 1950 kcals (35 kcals/kg per BMI) 85 g protein (1.5 g/kg per PCM) Monitoring/Evaluations: po intakes, ONS tolerance Electronically Signed by: Roxane Reyna 08/01/24 14:35 [address] [address]
--- NOTE | 2024-08-01 15:25 | CM.DPC ---
DCP Infusion Planning Cont: Per MD, pt now needing 14 days total of IV Ertapenem .5gm Q24 and not yet medically stable to discharge but making some progress and improvements. PT pending for tomorrow as pt has morphine and too drowsy for eval. SARITHA met bedside with pt and Dtr/NURY Nielsen and explained role and pt still quite drowsy and discussed options for IV infusion after discharge including SNF, outpt infusion clinic 1x a day, or maybe home infusion but likely not covered by Medicare but maybe some coverage through [employer]? Dtr confirms that pt would hate going to SNF and she can stay with pt through his duration of IV-abx course before going back to [place] to assist him and she would be agreeable with either infusion clinic or home infusion if covered by insurance as she states neither my dad or myself have any money if not covered by insurance. Preference would be [facility] if home infusion not covered. SARITHA faxed [facility] to run pt's insurance to determine out of pocket costs. SARITHA faxed [facility] new referral and left Bonnie hairston msg with update on likely need for outpt infusion. Plan: SW to follow for [facility] and [facility] to review to confirm plan for outpt IV abx and to confirm Dtr feels she can manage pt at home after working with PT tomorrow. BRENDA Cavazos
--- NOTE | 2024-08-01 16:52 | PM.PN.1 ---
Subjective Subjective Interval history: Summary: Patient was admitted on July 30 for pyelonephritis as well as possible left orchitis. He was discussed with [facility] with recommendations for antibiotics. He was on levofloxacin. There is a question of dark stools, he had a negative Hemoccult in the ED. From night doctor: The night doctor called for evidence of acute respiratory failure with hypoxia. There is a concern for fluid overload and he was given Lasix. Antibiotics were expanded to Zosyn being added to Levaquin. S: Feels pretty good this morning, denies any dyspnea. He was off from oxygen. He also notes his left testicle is hurting less. Denies any confusion, or fevers overnight. Exam Vital Signs (past 8 hours): - 08/01/24 08:58 08/01/24 10:00 08/01/24 12:00 Temperature 98.3 F Pulse Rate 99 H Respiratory Rate 18 Blood Pressure 98/54 L 98/54 L 133/71 Pulse Oximetry 91 Oxygen Flow Rate 0 Oxygen Delivery Method Room Air Oxygen Flow Rate 0 Narrative Exam Narrative: NAD, alert and oriented. Fluent speech. Lungs are somewhat wheezy, normal rate and effort. Heart is regular, no murmur gallop or rub. Abdomen is soft, non distended. Extremities are free of edema. Left testicle is tender, but much less so than yesterday Objective Labs 08/01/24 04:34 08/01/24 04:34 Labs: Laboratory Results - last 24 hr 08/01/24 04:34 WBC 12.2 H RBC 2.48 L Hgb 8.0 L Hct 23.4 L MCV 94.3 MCH 32.2 MCHC 34.2 RDW 19.3 H Plt Count 208 Neut % (Auto) 90.1 H Lymph % (Auto) 3.2 L [place] % (Auto) 5.5 Eos % (Auto) 0.9 L Baso % (Auto) 0.3 Neut # (Auto) 24236 H Lymph # (Auto) 400 L [place] # (Auto) 700 Eos # (Auto) 100 Baso # (Auto) 0 Sodium 133 L Potassium 3.7 Chloride 108 H Carbon Dioxide 21 L BUN 30 H Creatinine 1.63 H Estimated GFR 43 L BUN/Creatinine Ratio 18.4 Glucose 108 Calcium 7.4 L Magnesium 1.2 L [facility] Medical History Claudication of both lower extremities COPD (chronic obstructive pulmonary disease) Hyperlipidemia CAD (coronary artery disease) HTN (hypertension) Surgical History History of heart artery stent Social History household members: none Smoking Status: Current every day smoker alcohol intake: current Assessment & Plan Assessment & Plan narrative: 1. Sepsis with ERVIN, acute respiratory failure with hypoxia, hypotension secondary to Orchitis with ESBL bacteremia, present on admission and active. 2. Orchitis, present on admission and active. 3. Darl stools (Heme neg in ED), present on admission and improved 4. Severe protein caloric malnutrition with wasting, present on admission and active. 5. Tobacco dependence, present on admission and active. 6. Possible alcohol abuse, present on admission and active. 7. Chronic hypertension, present on admission and active. 8. Hypomagnesemia, present on admission and active. 9. Acute hypoxic respiratory failure, resolved. 10. Positive Norovirus, active. PLAN: -Contact and enteric precautions. -continue antibiotics for UTI and L orchitis. With cultures growing ESBL, will need 14 days total of carbapenem therapy to end on 08/14/2024. -analgesics. -resume HTN meds when needed -nicotine patch -monitor for evidence of alcohol withdrawal. -replete electrolytes and monitor. -ECHO pending previously EF 55% in 2021. -supportive meds for norovirus. Anticipate 2 MN stay, supports IP status. ZI: Home vs SNF in 1-2 days. still fever overnight to 100.5. Full code Daughter is proxy. Time-Based Coding :: [TOTAL MINUTES] spent with patient and on the chart (including review of chart, obtaining history, exam, reviewing outside data, placing orders, documenting exam and treatment plan, and counseling patient) on [DATE]. Quality VTE Deep Vein Thrombosis/Pulmonary Embolism Present on Admission: No
[2024-08-01] MEDS: DOCUSATE 100 MG CAPSULE PO (22:11)
[2024-08-01] MEDS: MIRTAZAPINE 15 MG TABLET 7.5 MG PO (22:13)
[2024-08-01] MEDS: ATORVASTATIN 20 MG TABLET 80 MG PO (22:15)
[2024-08-02] VITALS (7 sets, daily range): BP systolic 123–136; BP diastolic 55–77; PULSE 52–77; RESP 16–22; TEMP 36.4–36.9; O2SAT 96–98
[2024-08-02] MEDS: PANTOPRAZOLE DR 40 MG TABLET PO (05:05)
[2024-08-02 05:39] LABS: Add Manual Diff / Slide Review NO; Basophils Absolute Auto 0 /uL (0-100); Basophils Percent Auto 0.4 % (0-2); Eosinophils Absolute Auto 100 /uL (0-450); Eosinophils Percent Auto 1.7 % (2-4); Hematocrit 25.6 % (41-53); Hemoglobin 8.8 g/dL (13.5-17.5); Lymphocytes Absolute Auto 600 /uL (1100-4500); Lymphocytes Percent Auto 7.5 % (25-40); Mean Corpuscular HGB Conc 34.3 % (30-36); Mean Corpuscular Hemoglobin 32.7 PG (26-34); Mean Corpuscular Volume 95.6 fL (80-100); Monocytes Absolute Auto 600 /uL (0-900); Monocytes Percent Auto 7.7 % (3-14); Neutrophils Absolute Auto 6400 /uL (1500-7000); Neutrophils Percent Auto 82.7 % (50-75); Platelet Count 268 X10^3/uL (150-400); Red Blood Cell Count 2.68 X10^6/uL (4.5-5.9); White Blood Cell Count 7.7 X10^3/uL (4.5-11.0)
[2024-08-02 05:56] LABS: BUN Creatinine Ratio 21.9 (6-22); Blood Urea Nitrogen 28 mg/dL (9-20); Calcium 7.9 mg/dL (8.4-10.2); Carbon Dioxide 24 mmol/L (22-32); Chloride 109 mmol/L (98-107); Estimated Glomerular Filt Rate 57 mL/min (>60); Glucose 115 mg/dL (80-110); HEMOLYSIS < 15 (0-50); Potassium 4.1 mmol/L (3.4-5.1); Sodium 136 mmol/L (137-145)
[2024-08-02 06:00] LABS: Magnesium 1.6 mg/dL (1.6-2.3)
[2024-08-02] MEDS: lisinopriL 10 MG TABLET 20 MG PO (09:34)
[2024-08-02] MEDS: VIT C/E/ZN/COPPR/LUTEIN/ZEAXAN CAPSULE 1 CAP PO (09:34)
[2024-08-02] MEDS: ASPIRIN EC 81 MG TABLET PO (09:36)
[2024-08-02] MEDS: carvediloL 3.125 MG TABLET PO ×2 (09:37→22:14)
[2024-08-02] MEDS: POTASSIUM CHLORIDE 20 MEQ TAB 40 MEQ PO (09:38)
[2024-08-02] MEDS: FUROSEMIDE 20 MG TABLET PO (09:39)
[2024-08-02] MEDS: CYANOCOBALAMIN (VITAMIN B-12) 100 MCG TABLET PO (09:39)
[2024-08-02] MEDS: FOLIC ACID 1 MG TABLET PO (09:40)
[2024-08-02] MEDS: MIDODRINE HCL 5 MG TABLET 2.5 MG PO ×3 (09:41→22:16)
[2024-08-02] MEDS: MAGNESIUM CHLORIDE 64 MG TABLET 128 MG PO (09:43)
[2024-08-02] MEDS: SODIUM CHLORIDE 0.9% FLUSH 10 ML IV ×2 (09:45→22:16)
--- NOTE | 2024-08-02 11:40 | PT.IIE ---
Current Diagnoses Sepsis, unspecified organism (07/30/24) Other fluid overload (07/30/24) Acute respiratory failure with hypoxia (07/30/24) Severe sepsis without septic shock (07/30/24) Surgical History (Last Reviewed 07/30/24 @ 14:59 by Elliott Rosa MD) History of heart artery stent Medical History (Last Reviewed 07/30/24 @ 14:59 by Elliott Rosa MD) CAD (coronary artery disease) Claudication of both lower extremities COPD (chronic obstructive pulmonary disease) HTN (hypertension) Hyperlipidemia Physical Therapy Inpatient Evaluation/Re-Eval M1 PT/OT-IP Prior Functional Status Start: 07/31/24 10:44 Freq: NEEDED Status: Active Protocol: Document 08/02/24 11:40 AB (Rec: 08/02/24 12:26 AB [id number]) Medical Review Prior Functional Status Medical History Reviewed Yes Communication able to make needs known; [place] Mobility and Gait pt stated that he was modified independent with all mobilities and ambulation without AD Social History Household Members none Living Arrangements House Number of Floors (Floors) One Floor Number of Stairs To Enter/Railing? 5 steps with B rails to enter Home Environment High Toilet,Walk in Shower,Tub /Shower Home Equipment Four Wheel Walker,Straight Cane,Shower Seat without Backrest Additional Social History Comment pt stated that he has a friend who helps him buy his groceries pt also has a tripod cane pt's daughter will be staying with pt for a few days to assist him and to drive him for his antibiotic tx M2 PT-IP Current Condition Start: 07/31/24 10:44 Freq: NEEDED Status: Active Protocol: Document 08/02/24 11:40 AB (Rec: 08/02/24 12:26 AB [id number]) Physical Therapy Current Condition Current Condition Evaluation Date 08/02/24 Treatment Diagnosis UTI; sepsis; difficulty in walking Onset Date 07/30/24 M3 PT-IP Subjective Start: 07/31/24 10:44 Freq: NEEDED Status: Active Protocol: Document 08/02/24 11:40 AB (Rec: 08/02/24 12:26 AB [id number]) Subjective Physical Therapy Visit Type Type Initial Evaluation Visit Start Time 11:40 Visit Stop Time 12:10 Number of SAUSAGE COOKER Visits 0 Therapy Pain Assessment Pain Present Pain Present Denied Pain M4 PT-IP Mobility and Gait Start: 07/31/24 10:44 Freq: NEEDED Status: Active Protocol: Document 08/02/24 11:40 AB (Rec: 08/02/24 12:26 AB [id number]) PT-Bed Mobility Assessment Supine to Sit Supine to Sit Standby Assistance PT-Transfer Assessment Sit to and From Stand Sit to and from Stand Contact Guard Assistance,1 Person Assistance,Use of Upper Extremities Equipment Transfer Assistive Device Gait Belt,Front Wheeled Walker Orthotic/Prosthetic Devices or Brace: No Transfers Transfer Destination Chair Transfer Technique ambulated Transfer Ability Level of Assist Contact Guard Assistance,1 Person Assistance,Use of Upper Extremities Comments Mobility Comments checked on pt earlier this am and pt refused PT. stated that he had a bath and was just beginning to get warm up again and wanted to rest. pt agreed for PT to check back. checked back on pt and daughter in room. obtained PLOF and home set up. BP: 120 /68 pt completed supine to sit SBA. assisted with putting shoes on. completed sit to stand CGA and ambulated in room initially using FWW and agreed to walk in the hallway using FWW ~ 250 ft CGA . Assessed ambulation without AD and completed ~ 15 to the chair CGA. presents with unsteady gait. pt sat on chair. positioned pt on the chair. call light and table placed nex to pt. Gait Assessment Gait Gait Assistance Required: Contact Guard Assist Distance (Feet) 250 Able to Maintain Weight Bearing Status Yes During Gait Assistive Devices Assistive Device Gait Belt,Front Wheeled Walker Orthotic/Prosthetic Devices or Brace: No Gait Deviations General Gait Pattern Decreased Stride Length, Decreased Feet Clearance Factors Limiting Gait Function Factors Limiting Gait Function Decreased Activity Tolerance, Decreased Strength,Limited Range of Motion,Poor Balance, Poor Safety Awareness PT-Balance Assessment Sitting Balance and Reactions Static Sitting Balance Ability Normal Dynamic Sitting Balance Ability Good Standing Balance and Reactions Static Standing Balance Ability Good Dynamic Standing Balance Ability Fair Device Used FWW M5 PT-IP Objective Assessments Start: 07/31/24 10:44 Freq: NEEDED Status: Active Protocol: Document 08/02/24 11:40 AB (Rec: 08/02/24 12:26 AB [id number]) Orientation Orientation/Cognition Level of Alertness Alert Orientation Name,Situation Language Function Ability Hard of Hearing Safety Awareness Decreased Safety Awareness Memory Description Short Term Impaired Gross Range of Motion Lower Extremity ROM Assessment Within Functional Limits Strength Lower Extremity Strength Assessment Within Functional Limits Muscle Tone Muscle Tone WNL Yes M6 PT-IP Treatment Start: 07/31/24 10:44 Freq: NEEDED Status: Active Protocol: Document 08/02/24 11:40 AB (Rec: 08/02/24 12:26 AB [id number]) Physical Therapy Treatment Education Education Provided Safety M7 PT-IP Assessment and Plan Start: 07/31/24 10:44 Freq: NEEDED Status: Active Protocol: Document 08/02/24 11:40 AB (Rec: 08/02/24 12:26 AB [id number]) PT Summary Assessment and Plan Potential Rehabilitation Potential Good Status of Condition at Evaluation Stable Summary Impairments Pain,ROM,Strength,Balance, Cognition,Bed Mobility, Transfers,Gait,Activity Tolerance Assessment Summary pt is a 79 y/o M who is admitted for sepsis, UTI, pyelonephritis. pt requiring CGA with transfers and ambulation using FWW. pt's daughter plans to stay with pt for a few days to assist and take him for antibiotics tx. will continue to assess progress. Goals Bed Mobility Goal Independent Transfer Goal Independent,Four Wheeled Walker Gait Goal Independent,Four Wheel Walker Gait Distance 250 Other Goals improve ambulation without AD ~ 100 ft SBA up/down 5 steps B rails SBA Days to Meet Goals 5 Frequency of Treatment Frequency Of Treatment Once a Day Treatment Plan Physical Therapy Treatment Plan Bed Mobility Training,Transfer Training,Gait Training, Therapeutic Exercise,Balance Retraining,Discharge Planning, Hot or Cold Pack,Neuromuscular Re-ed,Coordination Retraining Other Recommendations and Next Treatment ambulation using 4WW; stair Focus climbing Precautions Other Precautions hazardous drug contact precaution Recommendations To Nursing Amount of Assist Needed 1 Person Assist Discharge Recommendations PT Discharge Recommendations Home with Assistance,Home Health,Outpatient PT Equipment Needed for Home Before FWW if not safe with 4WW Discharge Transportation Needs at Discharge Private Vehicle
[2024-08-02] MEDS: ERTAPENEM 1 GM in SODIUM CHLORIDE 0.9% 100 ML IV (13:23)
--- NOTE | 2024-08-02 14:18 | CM.DPC ---
DCP Cont. Reviewed EMR and team rounds for status updates. Faxed the [facility] Order/Form to the clinic. Plan is d/c tomorrow after his IV ABO dose, followed by the [facility] daily starting on , 08/04. Family will provide transport.
--- NOTE | 2024-08-02 14:31 | PM.PN.1 ---
Subjective Subjective Interval history: Summary: Patient was admitted on July 30 for pyelonephritis as well as possible left orchitis. He was discussed with [facility] with recommendations for antibiotics. He was on levofloxacin. There is a question of dark stools, he had a negative Hemoccult in the ED. From night doctor: The night doctor called for evidence of acute respiratory failure with hypoxia. There is a concern for fluid overload and he was given Lasix. Antibiotics were expanded to Zosyn being added to Levaquin. S: Feels pretty good this morning, denies any dyspnea. He was off from oxygen. He has no testicular pain this morning. Denies any confusion, or fevers overnight. Exam Vital Signs (past 8 hours): - 08/02/24 09:00 08/02/24 09:34 08/02/24 13:00 Temperature 97.8 F 97.6 F Pulse Rate 67 66 Respiratory Rate 16 16 Blood Pressure 125/58 L 123/64 Pulse Oximetry 98 Oxygen Flow Rate 0 Oxygen Delivery Method Room Air Oxygen Flow Rate 0 Narrative Exam Narrative: NAD, alert and oriented. Fluent speech. Lungs are somewhat wheezy, normal rate and effort. Heart is regular, no murmur gallop or rub. Abdomen is soft, non distended. Extremities are free of edema. Left testicle is still mildly tender, but much improved. Objective Labs 08/02/24 04:50 08/02/24 04:50 Labs: Laboratory Results - last 24 hr 08/02/24 04:50 WBC 7.7 RBC 2.68 L Hgb 8.8 L Hct 25.6 L MCV 95.6 MCH 32.7 MCHC 34.3 RDW 20.0 H Plt Count 268 Neut % (Auto) 82.7 H Lymph % (Auto) 7.5 L [place] % (Auto) 7.7 Eos % (Auto) 1.7 L Baso % (Auto) 0.4 Neut # (Auto) 6400 Lymph # (Auto) 600 L [place] # (Auto) 600 Eos # (Auto) 100 Baso # (Auto) 0 Sodium 136 L Potassium 4.1 Chloride 109 H Carbon Dioxide 24 BUN 28 H Creatinine 1.28 H Estimated GFR 57 L BUN/Creatinine Ratio 21.9 Glucose 115 H Calcium 7.9 L Magnesium 1.6 PFSH Medical History Claudication of both lower extremities COPD (chronic obstructive pulmonary disease) Hyperlipidemia CAD (coronary artery disease) HTN (hypertension) Surgical History History of heart artery stent Social History household members: none Smoking Status: Current every day smoker alcohol intake: current Assessment & Plan Assessment & Plan narrative: 1. Sepsis with ERVIN, acute respiratory failure with hypoxia, hypotension secondary to Orchitis with ESBL bacteremia, present on admission and active. 2. Orchitis, present on admission and active. 3. Darl stools (Heme neg in ED), present on admission and improved 4. Severe protein caloric malnutrition with wasting, present on admission and active. 5. Tobacco dependence, present on admission and active. 6. Possible alcohol abuse, present on admission and active. 7. Chronic hypertension, present on admission and active. 8. Hypomagnesemia, present on admission and active. 9. Acute hypoxic respiratory failure, resolved. 10. Positive Norovirus, active. PLAN: -Contact and enteric precautions. -continue antibiotics for UTI and L orchitis. With cultures growing ESBL, will need 14 days total of carbapenem therapy to end on 08/14/2024. -analgesics. -resume HTN meds when needed -nicotine patch -monitor for evidence of alcohol withdrawal. -replete electrolytes and monitor. -ECHO pending (ordered but listed as taken) previously EF 55% in 2021. -supportive meds for norovirus. Anticipate 2 [place] stay, supports IP status. ZI: Hopeful for home tomorrow with home infusion. Full code Daughter is proxy. Time-Based Coding :: [TOTAL MINUTES] spent with patient and on the chart (including review of chart, obtaining history, exam, reviewing outside data, placing orders, documenting exam and treatment plan, and counseling patient) on [DATE]. Quality VTE Deep Vein Thrombosis/Pulmonary Embolism Present on Admission: No
--- NOTE | 2024-08-02 14:41 | DIET.PN1 ---
Dietary Progress Note Assessment: F/u with pt and family member this morning regarding tolerance of softer food diet. Pt ate egg salad sandwich. Unsure about breakfast. Was open to trying regular Ensure. Updated lunch order per preferences. Discussed ways to increase energy-protein intake upon d/c including ONS and small freq meals with options high in kcals/protein. Ht: 172.72 cm Wt: 56 kg BMI: 18.7 UBW: Last BM: 08/02/24 (08/02/24 13:00) MNA: Liborio Score: 14 Diet: 07/30/24 08:28 NPO Diet Diet Modifications: NPO Type: NPO except for Meds 07/30/24 Dinner General (Regular) Diet Diet Modifications: Nutrition Percent Meal Consumed 100% 08/02/24 13:00 Percent Meal Consumed 50% 08/01/24 18:00 Percent Meal Consumed 50% 08/01/24 09:00 Labs: RBC 2.68 X10^6/uL (4.5-5.9) L 08/02/24 04:50 Hgb 8.8 g/dL (13.5-17.5) L 08/02/24 04:50 Hct 25.6 % (41-53) L 08/02/24 04:50 Creatinine 1.28 mg/dL (0.66-1.25) H 08/02/24 04:50 Lactate 1.4 mmol/L (0.7-2.1) 07/30/24 23:37 NT-Pro-B Natriuret Pep 8080 pg/mL (<450) H 07/30/24 23:37 Electronically Signed by: Roxane Reyna 08/02/24 14:41 Clinical Dietitian [address] [id number]
[2024-08-02] MEDS: HEPARIN 5,000 UNIT/ML VIAL 5000 UNIT SUBCUT (22:11)
[2024-08-02] MEDS: DOCUSATE 100 MG CAPSULE PO (22:12)
[2024-08-02] MEDS: ATORVASTATIN 20 MG TABLET 80 MG PO (22:12)
[2024-08-02] MEDS: MAGNESIUM OXIDE 400 MG TABLET PO (22:13)
[2024-08-02] MEDS: MIRTAZAPINE 15 MG TABLET 7.5 MG PO (22:15)
[2024-08-03] VITALS: BP 170/86; PULSE 77; RESP 22; TEMP 36.6; O2SAT 95
[2024-08-03 04:00] VITALS: BP 169/82; PULSE 74; RESP 16; TEMP 36.6; O2SAT 96
[2024-08-03] MEDS: PANTOPRAZOLE DR 40 MG TABLET PO (05:52)
[2024-08-03 08:00] VITALS: BP 122/59; PULSE 67; RESP 18; TEMP 36.7; O2SAT 95
[2024-08-03] MEDS: POTASSIUM CHLORIDE 20 MEQ TAB 40 MEQ PO (09:19)
[2024-08-03] MEDS: DOCUSATE 100 MG CAPSULE PO (09:20)
[2024-08-03] MEDS: MIDODRINE HCL 5 MG TABLET 2.5 MG PO ×2 (09:21→14:56)
[2024-08-03] MEDS: ASPIRIN EC 81 MG TABLET PO (09:22)
[2024-08-03] MEDS: carvediloL 3.125 MG TABLET PO (09:23)
[2024-08-03] MEDS: VIT C/E/ZN/COPPR/LUTEIN/ZEAXAN CAPSULE 1 CAP PO (09:24)
[2024-08-03] MEDS: lisinopriL 10 MG TABLET 20 MG PO (09:25)
[2024-08-03] MEDS: FUROSEMIDE 20 MG TABLET PO (09:26)
[2024-08-03] MEDS: FOLIC ACID 1 MG TABLET PO (09:26)
[2024-08-03] MEDS: MAGNESIUM OXIDE 400 MG TABLET PO (09:30)
[2024-08-03] MEDS: SODIUM CHLORIDE 0.9% FLUSH 10 ML IV (09:33)
[2024-08-03] MEDS: CYANOCOBALAMIN (VITAMIN B-12) 100 MCG TABLET PO (09:33)
--- NOTE | 2024-08-03 10:41 | P.PN_ITS ---
Subjective Subjective Interval history: S: The patient is feeling much better, he still has some left testicle pain. He was needing 2 weeks of IV ertapenem but does not have access in place. We will try to obtain a PICC line today. Exam Vital Signs (past 8 hours): - 08/03/24 04:00 08/03/24 08:00 Temperature 97.8 F 98.0 F Pulse Rate 74 67 Respiratory Rate 16 18 Blood Pressure 169/82 H 122/59 L Pulse Oximetry 96 95 Oxygen Flow Rate 0 Oxygen Delivery Method Room Air Oxygen Flow Rate 0 Narrative Exam Narrative: NAD, alert and oriented. Fluent speech. Lungs are clear, normal rate and effort. Heart is regular, no murmur gallop or rub. Abdomen is soft, non distended. Extremities are free of edema. Mild left testicle tenderness. Objective Labs 08/02/24 04:50 08/02/24 04:50 [facility] Medical History Claudication of both lower extremities COPD (chronic obstructive pulmonary disease) Hyperlipidemia CAD (coronary artery disease) HTN (hypertension) Surgical History History of heart artery stent Social History household members: none Smoking Status: Current every day smoker alcohol intake: current Assessment & Plan Assessment & Plan narrative: 1. Sepsis with ERVIN, acute respiratory failure with hypoxia, hypotension secondary to Orchitis with ESBL bacteremia, present on admission and active. 2. Orchitis, present on admission and active. 3. Darl stools (Heme neg in ED), present on admission and improved 4. Severe protein caloric malnutrition with wasting, present on admission and active. 5. Tobacco dependence, present on admission and active. 6. Possible alcohol abuse, present on admission and active. 7. Chronic hypertension, present on admission and active. 8. Hypomagnesemia, present on admission and active. 9. Acute hypoxic respiratory failure, resolved. 10. Positive Norovirus, active. PLAN: -try to obtain a PICC line today. -may be able to discharge home with IV antibiotics later today. Anticipate 2 [place] stay, supports IP status. Time-Based Coding :: [TOTAL MINUTES] spent with patient and on the chart (including review of chart, obtaining history, exam, reviewing outside data, placing orders, documenting exam and treatment plan, and counseling patient) on [DATE]. Quality VTE Deep Vein Thrombosis/Pulmonary Embolism Present on Admission: No
--- NOTE | 2024-08-03 11:48 | PT-IP ANOTE ---
Pt refused working with FUNDRAISING SPECIALIST I just got back in bed and tired. I don't want to be bothered. FUNDRAISING SPECIALIST offered coming back later in the day and pt declined I am going to go home soon and will do alright. FUNDRAISING SPECIALIST offered assessing stair mgt read has at home to enter home. Pt reported I don't have any stairs need to manage, has some down to the basement but doesn't go down there, and has a ramp to enter home and works fine. FUNDRAISING SPECIALIST was unable to work with pt this morning.
[2024-08-03 12:00] VITALS: BP 123/54; PULSE 57; RESP 18; TEMP 36.2; O2SAT 95
[2024-08-03] MEDS: ERTAPENEM 1 GM in SODIUM CHLORIDE 0.9% 100 ML IV (12:35)
--- NOTE | 2024-08-03 13:45 | PT-IP ANOTE ---
Patient declines physical therapy, review of stair training. Daughter present reports she observed how patient moves yesterday, he got out of bed to the chair for lunch, and she will make sure he walks at home. Also, daughter comments he just wants to go home.
--- NOTE | 2024-08-03 14:39 | CM.DPC ---
DCP Cont. Reviewed EMR and team rounds for status updates. Pt was not able to d/c today due to needing a PICC line placed for OP IV ABO's at the [facility] (). Plan will be to d/c tomorrow once PICC is in place. Will notify Infusion once he is medically d/c'd.
[2024-08-03] MEDS: LOPERAMIDE 2 MG CAPSULE PO (14:55)
--- NOTE | 2024-08-03 15:50 | DI.RAD.S_ITS ---
PROCEDURE: XR CHEST FOR PICC 1V INDICATIONS: PICC placement TECHNIQUE: One view of the chest was acquired. COMPARISON: [facility], , XR CHEST 1V, 07/30/2024, 23:17. FINDINGS: Oblique image of the chest shows a central line extending to the mid SVC. No pneumothorax. Diffuse chronic interstitial changes. IMPRESSION: Right-sided PICC line tip in the mid SVC. No pneumothorax Osteopenia Approved by: Duane Em M.D. on 08/03/2024 at 17:23
--- NOTE | 2024-08-03 16:06 | PM.DS.1 ---
History of Present Illness History of Present Illness Chief complaint: Black Stools Narrative: From ED provider: 77-year-old male history of hypertension, dyslipidemia, coronary artery disease with cardiac stents, COPD, tobacco use, history of aneurysm who presents with complaint of feeling generally weak and ?I feel like crap?. Patient denies any fevers. Denies any chest pain, has chronic shortness of breath he states it has maybe a little bit worse. Denies any abdominal back or flank pain. Denies any nausea or vomiting. No lightheadedness or passing out. States he has been able to walk around the house. Patient states he has had diarrhea for the last 6-12 months. States several times daily. Describes it as watery and black. Patient states he did stop his anticoagulation in the past couple of months because of what sounds like GI bleed. Patient does note some difficulty with urination. Patient isn't sure what he takes for medication but states no longer takes any anticoagulants does take medication for his heart. States he has had cardiac stents states that they are monitoring his aneurysm but have not initiated surgery. No known drug allergies reported. Does smoke up to 2 packs per day, drinks alcohol 2 or 3 beers daily states he stopped all hard alcohol, no recreational drugs. Primary care is in [place]. S: He tells me that he has been ill for several weeks. He lives at home alone in [place]. He does not really leave his house and a friend brings food in. He drinks a couple of beers a day and smokes about a pack cigarettes. He has been too sick to smoke, or eat for least a week if not longer. His friend called his daughter who lives in [place]. She came up today and saw his state and he was brought to the hospital. He denies URI symptoms, cough, shortness a breath. He has a sore left testicle and imaging in the emergency department indicated orchitis. In imaging also indicated probable urinary tract infection. He was discussed with the urologist on-call from [facility] who recommended antibiotics. He also has a left inguinal hernia. He was had intermittent diarrhea for a year and weighs about 100 lb, this is chronic. He was had some black stools for maybe up to a week. He denies abdominal pain, nausea, vomiting, or hematemesis. Discharge Providers Provider Date of admission: 07/30/24 13:22 Discharge Date: 08/03/24 Primary care physician: Jayleen Alas MD Consults: 07/31/24 10:41 Consult to Physical Therapy Evaluate & Treat Comment: Physician Instructions: Evaluate and Treat Discharge provider: Elliott Rosa MD Summary Hospital Course Discharge Diagnosis: 1. Sepsis with ERVIN, acute respiratory failure with hypoxia, hypotension secondary to Orchitis with ESBL bacteremia, present on admission and improved. 2. Orchitis, present on admission and improved. 3. Darl stools (Heme neg in ED), present on admission and improved 4. Severe protein caloric malnutrition with wasting, present on admission and active. 5. Tobacco dependence, present on admission and active. 6. Possible alcohol abuse, present on admission and active. 7. Chronic hypertension, present on admission and active. 8. Hypomagnesemia, present on admission and improved. 9. Acute hypoxic respiratory failure, resolved. 10. Positive Norovirus, improved. Hospital Course: He was admitted with evidence of pyelonephritis and left orchitis. The patient was found to have an ESBL organism and was placed on ertapenem. He also had a 1 year history of diarrhea and a stool culture was positive for norovirus. He would dark stools but he was heme-negative on testing. He was given a nicotine patch for severe tobacco dependence. He also had low magnesium which was corrected. A PICC line was placed prior to discharge on August 03 and he will come back to the infusion center to complete 14 total days of ertapenem 1 g daily, last day is August 14. In the day of discharge she was doing well, had improvement of his diarrhea. He also had much improvement of his left testicle tenderness. This was reviewed with Urology as noted in the history and physical. Status at Discharge Cognitive/behavioral status at discharge: oriented Functional status at discharge: independent ambulation Overall status at discharge: patient is back to baseline Time Spent with Patient Time spent: Greater than 30 minutes Exam Vital Signs (past 8 hours): - 08/03/24 12:00 Temperature 97.2 F L Pulse Rate 57 L Respiratory Rate 18 Blood Pressure 123/54 L Pulse Oximetry 95 Oxygen Flow Rate 0 Oxygen Delivery Method Room Air Oxygen Flow Rate 0 Narrative Exam Narrative: NAD, alert and oriented. Fluent speech. Lungs are clear, normal rate and effort. Heart is regular, no murmur gallop or rub. Abdomen is soft, non distended. Extremities are free of edema. Left testicle is much less tender. Objective ECG Impression: mpression: Sinus tachycardia with premature atrial complexes with aberrant conduction Left axis deviation Right bundle branch block Inferior infarct , age undetermined Imaging Multiple studies:: Radiologist's impression: Scrotal US: FINDINGS: Right: Testicle is normal in size at 4.2.7 x 2.7 cm, and homogenous in echotexture. Epididymis is normal in overall size and morphology. No hydrocele or varicoceles. Overlying scrotal skin is normal in thickness. Left: Testicle is normal in size at 3.5 x 3 x 2.6 cm, and homogeneous in echotexture. Epididymis is normal in overall size and morphology however demonstrates heterogeneous echotexture and increased vascularity. No hydrocele or varicoceles. Overlying scrotal skin is normal in thickness. Doppler: Normal color flow to the right testicle. Increased vascular flow flow throughout the left testicle and epididymis. Abdomen pelvis CT: MPRESSION: 1. Small left kidney stone measuring 4 mm. 2. Bilateral perinephric fat stranding with prominent fluid-filled right ureter. 3. Thickened bladder wall, correlate with UA. 4. Abdominal aortic aneurysm. 5. Multiple loops of bowel with air-fluid levels. Correlate for enteritis. 6. Prostatomegaly. CXR: IMPRESSION: No acute cardiopulmonary abnormality is seen. Post PICC CXR: Good placement and no pneumothorax. Labs 08/02/24 04:50 08/02/24 04:50 [facility] Medical History Claudication of both lower extremities COPD (chronic obstructive pulmonary disease) Hyperlipidemia CAD (coronary artery disease) HTN (hypertension) Surgical History History of heart artery stent Social History household members: none Smoking Status: Current every day smoker alcohol intake: current Discharge Assessment & Plan Assessment and Plan Assessment: 1. Sepsis with ERVIN, acute respiratory failure with hypoxia, hypotension secondary to Orchitis with ESBL E coli UTI and bacteremia, present on admission and improved. 2. Orchitis, present on admission and improved. 3. Darl stools (Heme neg in ED), present on admission and improved 4. Severe protein caloric malnutrition with wasting, present on admission and active. 5. Tobacco dependence, present on admission and active. 6. Possible alcohol abuse, present on admission and active. 7. Chronic hypertension, present on admission and active. 8. Hypomagnesemia, present on admission and improved. 9. Acute hypoxic respiratory failure, resolved. 10. Positive Norovirus, improved. Plan of Treatment: Discharge home to complete 14 days of ertapenem, August 14 his final day. He will be coming to the infusion center. Recommend follow up with PCP to recheck orchitis within the next 7 days. Discharge Plan Discharge Plan Patient Disposition: Home Provider Discharge Comment: Stable for discharge home, 2 week course of ertapenem at the infusion center. Discharge orders & Medications Prescriptions: New ertapenem 1 gram recon soln 1 g IV Q24H 11 Days Qty: 11 0RF Continued aspirin 81 MG tablet,delayed release (DR/EC) 81 mg PO QDAY Qty: 0 atorvastatin 80 mg PO BEDTIME cyanocobalamin (vitamin B-12) [Vitamin B-12] 100 mcg Tablet 100 mcg PO DAILY Qty: 60 0RF famotidine [Pepcid AC] 20 mg Tablet 40 mg PO BID Qty: 60 0RF ascorbic acid (vitamin C) [Vitamin C] 500 mg Tablet 500 mg PO BID Qty: 60 0RF docusate sodium 100 mg Capsule 100 mg PO BID Qty: 60 0RF folic acid 1 mg Tablet 1 mg PO DAILY Qty: 60 0RF clopidogrel [Plavix] 75 mg tablet 75 mg PO DAILY Qty: 30 0RF magnesium oxide 400 mg (241.3 mg magnesium) Tablet 400 mg PO BID Qty: 60 0RF nicotine 7 mg/24 hr Patch 24 Hour 7 mg topical DAILY Qty: 30 0RF lisinopril 10 MG tablet 20 mg PO QDAY Qty: 90 1RF omeprazole 40 mg capsule,delayed release(DR/EC) 40 mg PO DAILY carvedilol 3.125 mg tablet 3.125 mg PO BID midodrine 2.5 mg tablet 2.5 mg PO TID furosemide 20 mg tablet 20 mg PO DAILY mirtazapine 7.5 mg tablet 7.5 mg PO BEDTIME potassium chloride 20 mEq tablet extended release 400 meq PO DAILY albuterol sulfate 90 mcg/actuation Hfa Aerosol Inhaler 2 puff INHALATION Q4-6H MDD 4 PRN (Reason: sob) [id number] Tablet 1 tab PO DAILY Follow up/Referrals: Jayleen Alas MD [Primary Care Provider] - Discharge Health Status Multidrug resistant organism: Other Diet/Activity/Treatments Diet: Regular Activity: As tolerated Skin/Wound/Dressing Care Report to your healthcare provider any signs of infection, such as:: chills, fever, night sweats and increased pain Visit Report/Discharge Packet Instructions: DI for Kidney Infection, DI for Orchitis Stand Alone Forms: Patient Portal/API Discharge Data Primary Care Provider: Jayleen Alas Quality VTE Deep Vein Thrombosis/Pulmonary Embolism Present on Admission: No MIPS - DC The patient has a history of heart transplant or Left Ventricular Assist Device (LVAD). If yes, STOP here.: No The patient has current or prior documentation of left ventricular ejection fraction (LVEF) less than or equal to 40%, or moderate or severely depressed left ventricular systolic function.: No
--- NOTE | 2024-08-03 17:27 | PC.NURSE ---
Discharge instructions gone over by patient and patients daughter. All questions answered, they stated understanding, PICC line left in place, patient's daughter understands plan for home IV antibiotics. PIV and Telemetry removed. All belongings with patient. PCT Elsy escorted patient to exit.
== END 2024-08-03 17:30 | disposition home or self-care (01) | DRG 871 ==
LOC: ED 13:22 → AC 13:23
PROVIDERS: Hospitalist; Admitting Provider Hospitalist; Emergency Provider Emergency Medicine; PCP Internal Medicine; Referring Provider Emergency Medicine; Visit Provider Hospitalist
DX: A41.50 Gram-negative sepsis, unspecified (principal); E43 Unspecified severe protein-calorie malnutrition; J96.01 Acute respiratory failure with hypoxia; Z68.1 Body mass index [BMI] 19.9 or less, adult; N12 Tubulo-interstitial nephritis, not specified as acute or chronic; N17.9 Acute kidney failure, unspecified; A08.11 Acute gastroenteropathy due to Norwalk agent; N45.2 Orchitis; I25.10 Atherosclerotic heart disease of native coronary artery without angina pectoris; F17.210 Nicotine dependence, cigarettes, uncomplicated; K40.90 Unilateral inguinal hernia, without obstruction or gangrene, not specified as recurrent; J44.9 Chronic obstructive pulmonary disease, unspecified; I10 Essential (primary) hypertension; E78.5 Hyperlipidemia, unspecified; R00.0 Tachycardia, unspecified; E83.42 Hypomagnesemia; F10.10 Alcohol abuse, uncomplicated; Y90.9 Presence of alcohol in blood, level not specified; R65.20 Severe sepsis without septic shock; I49.1 Atrial premature depolarization; I45.10 Unspecified right bundle-branch block; E87.79 Other fluid overload; R19.5 Other fecal abnormalities; I72.9 Aneurysm of unspecified site; Z79.02 Long term (current) use of antithrombotics/antiplatelets; Z95.5 Presence of coronary angioplasty implant and graft
CPT/HCPCS: 0241U; 36415; 36573; 36600; 71045; 74176; 76870; 80048; 80053; 81003; 81015; 82272; 82550; 82805; 83605; 83735; 83880; 84145; 84484; 85025; 85610; 85730; 86850; 86900; 86901; 87040; 87077; 87086; 87154; 87186; 87507; 93005; 93306; 96365; 96366; 96367; 96368; 96375; 97116; 97161; 99284; 99291; J0134; J0696; J1335; J1644; J1940; J1956; J2270; J2470; J2543; J3475

== ENCOUNTER 2024-09-11 00:05 | Inpatient (IN) | payer MEDICARE, OTHER, SELFPAY ==
[2024-07-30 15:30] VITALS: BMI 18.7
[2024-09-11] VITALS (84 sets, daily range): BP systolic 79–161; BP diastolic 45–102; PULSE 48–216; RESP 12–39; TEMP 36.7–39.7; O2SAT 77–100; BMI 17.6
--- NOTE | 2024-09-11 00:17 | DI.RAD.S_ITS ---
PROCEDURE: XR CHEST 1V INDICATIONS: suspected sepsis TECHNIQUE: One view of the chest was acquired. COMPARISON: [facility], CR, XR CHEST FOR PICC 1V, 08/03/2024, 15:46. FINDINGS: Surgical changes and devices: None. Lungs and pleura: Interstitial. No pleural effusions or pneumothorax. Mediastinum: Mediastinal contours appear normal. Heart size is . Bones and chest wall: No suspicious bony lesions. Overlying soft tissues appear unremarkable. IMPRESSION: Acute consolidations. Dictated by: My Davenport M.D. on 09/11/2024 at 1:23 Approved by: My Davenport M.D. on 09/11/2024 at 1:24
--- NOTE | 2024-09-11 00:24 | ED_ITS ---
HPI - Nausea/Vomiting/Diarrhea General Chief complaint: Nausea/Vomiting/Diarrhea Stated complaint: N/V/D Time Seen by Provider: 09/11/24 00:22 Source: patient, EMS, RN notes reviewed and old records reviewed Mode of arrival: EMS Limitations: no limitations History of Present Illness HPI Narrative: 77-year-old male history of hypertension, dyslipidemia, coronary artery disease with cardiac stents, COPD, tobacco use, history of aneurysm presents with nausea vomiting diarrhea and states has symptoms similar to prior UTIs. Patient had hospitalization in July from to 825 through 08/03/2024 with sepsis with ERVIN, acute respiratory failure with hypoxia and hypotension secondary to orchitis with ESBL bacteremia and norovirus. Patient presents states he feels like cramps started having nausea vomiting this morning has had chills he was febrile here in the department. Denies any pain he denies chest pain or shortness of breath. Denies any abdominal back or flank pain. Denies any testicular pain. States he did have little bit of diarrhea denies any black or bloody stools recently states he might have had 1 black stool after his discharge from the hospital in July. States he did finish his IV antibiotics and PICC line was removed patient states he was not had any other changes to his medications, has not had any new surgeries. Does smoke 1 or 2 packs daily, he states he drinks 2 appears daily, states usually in the evening, denies any recreational drugs. Per EMS patient was hypotensive in the field with a systolic of 80-100 was improving after 500 mL bolus from EMS. Related Data Home Medications Medication Instructions Recorded Confirmed aspirin 81 mg tablet,delayed 81 mg PO QDAY ##0 06/23/12 07/30/24 release atorvastatin 80 mg PO BEDTIME 06/21/21 07/30/24 albuterol sulfate 90 mcg/actuation 2 puff inhalation Q4-6H PRN sob 07/30/24 07/30/24 aerosol inhaler carvedilol 3.125 mg tablet 3.125 mg PO BID 07/30/24 07/30/24 furosemide 20 mg tablet 20 mg PO DAILY 07/30/24 07/30/24 midodrine 2.5 mg tablet 2.5 mg PO TID 07/30/24 07/30/24 mirtazapine 7.5 mg tablet 7.5 mg PO BEDTIME 07/30/24 07/30/24 emoallprzqeg-ldlvopiq-xiprkk tablet 1 tab PO DAILY 07/30/24 07/30/24 omeprazole 40 mg capsule,delayed 40 mg PO DAILY 07/30/24 07/30/24 release potassium chloride 20 mEq 400 meq PO DAILY 07/30/24 07/30/24 tablet,extended release Previous Rx's Medication Instructions Recorded ascorbic acid (vitamin C) 500 mg 500 mg PO BID #60 tabs 06/25/21 tablet (Vitamin C) clopidogrel 75 mg tablet (Plavix) 75 mg PO DAILY #30 tabs 06/25/21 cyanocobalamin (vitamin B-12) 100 100 mcg PO DAILY #60 tabs 06/25/21 mcg tablet (Vitamin B-12) docusate sodium 100 mg capsule 100 mg PO BID #60 caps 06/25/21 famotidine 20 mg tablet (Pepcid AC) 40 mg (2 x 20 mg) PO BID #60 tabs 06/25/21 folic acid 1 mg tablet 1 mg PO DAILY #60 tabs 06/25/21 lisinopril 10 mg tablet 20 mg (2 x 10 mg) PO QDAY #90 tabs 08/18/22 magnesium oxide 400 mg (241.3 mg 400 mg PO BID #60 tabs 08/18/22 magnesium) tablet nicotine 7 mg/24 hr daily 7 mg topical DAILY #30 ea 08/18/22 transdermal patch Allergies Allergy/AdvReac Type Severity Reaction Status Date / Time No Known Drug Allergies Allergy Verified 07/30/24 08:50 Review of Systems Review of Systems ROS Unobtainable: All systems reviewed & are unremarkable except as noted in HPI and below Patient History Medical History Claudication of both lower extremities COPD (chronic obstructive pulmonary disease) Hyperlipidemia CAD (coronary artery disease) HTN (hypertension) Surgical History History of heart artery stent Social History household members: none Smoking Status: Current every day smoker alcohol intake: current Smoking Status: Current every day smoker alcohol intake frequency: 0-2 drinks per day Alcohol type: beer Exam Narrative Exam Narrative: GENERAL: Alert and oriented x three, thin elderly appearing male, patient has a rigors on examination. HEENT: Head normocephalic, atraumatic, EOMI, pupils reactive, face symmetric, moist mucous membranes NECK: Supple, full range of motion CARDIOVASCULAR: Regular rate and rhythm without murmurs, rubs or gallops. No edema. No JVD. RESPIRATORY: Breath sounds equal bilaterally, no wheezes rales or rhonchi. No tachypnea accessory muscle use. ABDOMEN: Soft, nontender. Normoactive bowel sounds all 4 quadrants. No guarding or rebound, rigidity, no mass : No CVA tenderness, Male: normal external examination, no penile discharge or lesions, testicles non-tender, cremasteric reflex intact, no inguinal hernias noted. EXTREMITIES: Normal range of motion, no clubbing or edema. Neurovascularly intact NEUROLOGICAL: Cranial nerves II through XII grossly intact. Moving all extremities SKIN: Warm, dry, no petechiae, no rashes or lesions. Initial Vital Signs Initial Vital Signs: Vital Signs Pulse Oximetry 96 09/11/24 00:08 Course Orders Ordered: ED Orders 09/11/24 00:14 Urine Culture Stat Urine Microscopic Stat 09/11/24 00:17 XR chest 1V Stat EKG-12 Lead Stat RT Consult Eval and Treat NOW 09/11/24 00:26 Complete Blood Count AUTO DIFF Stat 09/11/24 00:41 Blood Culture Stat Comprehensive Metabolic Panel Stat Lactate (Lactic Acid) Stat Lipase Stat PTT Partial Thromboplastin Tung Stat Procalcitonin Stat Prothrombin Time INR Stat 09/11/24 00:43 CT abdomen pelvis w con Stat 09/11/24 00:46 EKG-12 Lead Stat NOREPINEPHRINE BITARTRATE/D5W (Levophed) 4 mg in 250 mls @ 20.438 mls/hr IV TITRATE LEE; Protocol Last Admin: 09/11/24 02:48 Dose: 0.1 mcg/kg/min, 20.438 mls/hr Documented By: MARIANN Sodium Chloride (Normal Saline 0.9%) 1,000 mls @ 150 mls/hr IV CONT LEE Last Admin: 09/11/24 02:57 Dose: 150 mls/hr Documented By: MARIANN Ondansetron HCl (Ondansetron 4 Mg Odt) 4 mg SL NOW PRN PRN Reason: Nausea And Vomiting Discontinued Medications Sodium Chloride (Normal Saline 0.9%) 500 mls @ 1,000 mls/hr IV BOLUS ONE Stop: 09/11/24 00:46 Last Infusion: 09/11/24 01:27 Dose: Infused Documented By: Admin: 09/11/24 00:27 Dose: 1,000 mls/hr Documented By: IVETTE Acetaminophen (Ofirmev) 1,000 mg in 100 mls @ 400 mls/hr IV NOW ONE Stop: 09/11/24 00:48 Last Infusion: 09/11/24 00:57 Dose: Infused Documented By: Admin: 09/11/24 00:39 Dose: 400 mls/hr Documented By: MARIANN Piperacillin Sod/Tazobactam (Sod 4.5 gm/ Sodium Chloride) 100 mls @ 200 mls/hr IV NOW ONE Stop: 09/11/24 00:43 Last Infusion: 09/11/24 01:51 Dose: Infused Documented By: Admin: 09/11/24 00:51 Dose: 200 mls/hr Documented By: IVETTE Sodium Chloride (Normal Saline 0.9%) 1,000 mls @ 1,000 mls/hr IV BOLUS ONE Stop: 09/11/24 02:27 Last Infusion: 09/11/24 02:41 Dose: Infused Documented By: Admin: 09/11/24 01:30 Dose: 1,000 mls/hr Documented By: IVETTE Lidocaine HCl (Lidocaine 2% (Glydo) 6 Ml Gel) 6 ml TOP NOW ONE Stop: 09/11/24 02:14 Last Admin: 09/11/24 02:31 Dose: 6 ml Documented By: MARIANN Ondansetron HCl (Ondansetron 4 Mg/2 Ml Inj) 4 mg IV NOW PRN PRN Reason: Nausea And Vomiting Last Admin: 09/11/24 00:27 Dose: 4 mg Documented By: IVETTE Vital Signs Vital signs: Vital Signs - 8 hr 09/11/24 00:08 09/11/24 00:09 09/11/24 00:09 Temperature Pulse Rate Respiratory Rate Blood Pressure 145/95 H Pulse Oximetry 96 93 Oxygen Delivery Method Oxygen Flow Rate 09/11/24 00:12 09/11/24 00:30 09/11/24 00:47 Temperature 100.9 F H Pulse Rate 48 L 114 H Respiratory Rate 20 31 H Blood Pressure 145/95 H 132/102 H Pulse Oximetry 91 Oxygen Delivery Method Room Air Oxygen Flow Rate 09/11/24 00:47 09/11/24 01:09 09/11/24 01:11 Temperature Pulse Rate 63 111 H Respiratory Rate 27 H Blood Pressure 106/59 L Pulse Oximetry 77 L 100 Oxygen Delivery Method Oxygen Flow Rate 09/11/24 01:11 09/11/24 01:15 09/11/24 01:15 Temperature Pulse Rate 112 H Respiratory Rate 25 H Blood Pressure 84/52 L 79/47 L Pulse Oximetry 100 Oxygen Delivery Method Nasal Cannula Oxygen Flow Rate 2 09/11/24 01:17 09/11/24 01:17 09/11/24 01:25 Temperature Pulse Rate 112 H Respiratory Rate 28 H Blood Pressure 80/53 L 103/61 Pulse Oximetry 100 Oxygen Delivery Method Room Air Oxygen Flow Rate 09/11/24 01:25 09/11/24 01:30 09/11/24 01:30 Temperature Pulse Rate 109 H 111 H Respiratory Rate 30 H 29 H Blood Pressure 83/45 L Pulse Oximetry 100 99 Oxygen Delivery Method Oxygen Flow Rate 09/11/24 01:38 09/11/24 01:38 09/11/24 01:45 Temperature Pulse Rate 110 H 110 H Respiratory Rate 29 H 33 H Blood Pressure 93/51 L Pulse Oximetry 95 96 Oxygen Delivery Method Oxygen Flow Rate 09/11/24 01:45 09/11/24 02:00 09/11/24 02:00 Temperature Pulse Rate 107 H Respiratory Rate 29 H Blood Pressure 86/53 L 81/49 L Pulse Oximetry 95 Oxygen Delivery Method Oxygen Flow Rate 09/11/24 02:15 09/11/24 02:15 09/11/24 02:30 Temperature Pulse Rate 109 H 106 H Respiratory Rate 28 H 27 H Blood Pressure 86/53 L Pulse Oximetry 94 94 Oxygen Delivery Method Oxygen Flow Rate 09/11/24 02:30 09/11/24 02:45 09/11/24 02:45 Temperature 98.1 F Pulse Rate 104 H Respiratory Rate 26 H Blood Pressure 92/50 L 90/53 L Pulse Oximetry 93 Oxygen Delivery Method Oxygen Flow Rate 09/11/24 02:50 09/11/24 02:50 09/11/24 02:55 Temperature 98.6 F 98.8 F Pulse Rate 104 H 101 H Respiratory Rate 27 H 27 H Blood Pressure 90/52 L Pulse Oximetry 92 95 Oxygen Delivery Method Oxygen Flow Rate 09/11/24 02:55 09/11/24 03:00 09/11/24 03:00 Temperature 98.8 F Pulse Rate 62 Respiratory Rate 24 Blood Pressure 85/46 L 137/69 Pulse Oximetry 97 Oxygen Delivery Method Oxygen Flow Rate 09/11/24 03:05 09/11/24 03:05 09/11/24 03:10 Temperature 99.0 F Pulse Rate 84 Respiratory Rate 27 H Blood Pressure 90/54 L 118/66 Pulse Oximetry 95 Oxygen Delivery Method Oxygen Flow Rate 09/11/24 03:10 Temperature 99.0 F Pulse Rate 90 Respiratory Rate 26 H Blood Pressure Pulse Oximetry 97 Oxygen Delivery Method Oxygen Flow Rate MDM - Nausea/Vomiting/Diarrhea Lab Data 09/11/24 00:26 09/11/24 00:41 Labs: Lab Results 09/11/24 09/11/24 09/11/24 Range/Units 00:14 00:26 00:41 WBC 32.9 H* (4.5-11.0) X10^3/uL RBC 3.06 L (4.5-5.9) X10^6/uL Hgb 10.0 L (13.5-17.5) g/dL Hct 30.0 L (41-53) % MCV 98.0 (80-100) fL MCH 32.5 (26-34) PG MCHC 33.2 (30-36) % RDW 22.5 H (11.6-14.8) % Plt Count 267 (150-400) X10^3/uL Neut % (Auto) Not Reportable Lymph % (Auto) Not Reportable [place] % (Auto) Not Reportable Eos % (Auto) Not Reportable Baso % (Auto) Not Reportable Lymph # (Auto) Not Reportable [place] # (Auto) Not Reportable Baso # (Auto) Not Reportable Total Counted 100 Seg Neutrophils % 78.0 H (38-70) % Band Neutrophils % 12.0 H (3-7) % Lymphocytes % (Manual) 9.0 L (25-45) % Monocytes % (Manual) 1.0 L (2-11) % Neutrophils # (Manual) 45819 H (8207-5795) /uL Hypogranular Neuts Cancelled Platelet Estimate Adequate on smear RBC Morphology See below Anisocytosis 2+ H Microcytosis 1+ H Macrocytosis 1+ H Ovalocytes 1+ H PT 13.5 H (9.4-12.5) SECONDS INR 1.2 (0.9-1.3) APTT 29 (25.1-36.5) SECONDS Sodium 137 (137-145) mmol/L Potassium 4.8 (3.4-5.1) mmol/L Chloride 109 H (98-107) mmol/L Carbon Dioxide 18 L (22-32) mmol/L BUN 42 H (9-20) mg/dL Creatinine 1.76 H (0.66-1.25) mg/dL Estimated GFR 39 L (>60) mL/min BUN/Creatinine Ratio 23.9 H (6-22) Glucose 133 H (80-110) mg/dL Lactate 1.5 (0.7-2.1) mmol/L Calcium 8.9 (8.4-10.2) mg/dL Total Bilirubin 1.2 (0.2-1.3) mg/dL AST 20 (17-59) IU/L ALT 16 (<50) IU/L Alkaline Phosphatase 63 (38-126) U/L Total Protein 6.7 (6.3-8.2) g/dL Albumin 3.8 (3.5-5.0) g/dL Globulin 2.9 (1.7-4.1) g/dL Albumin/Globulin Ratio 1.3 (1.0-2.8) Lipase 30 (23-300) U/L Procalcitonin 0.850 H (<0.5) ng/mL Urine RBC None seen (0-5/HPF) Urine WBC 10-30/hpf H (0-5/HPF) Ur Squamous Epith Cells 0-1 /hpf (0-5/HPF) Urine Bacteria Many (>30) H (None) Ur Culture Indicated? Specimen cultured Vol Urine Centrifuged 10ml (spun) Urine Dip Bedside Urine Glucose Negative Bedside Urine Bilirubin - Negative Bedside Urine Ketone - Negative Urine Specific [place] 1.015 Bedside Urine Occult Blood +/- Bedside Urine pH 5.5 Bedside Urine Protein +/- 15 Bedside Urine Urobilinogen - Negative Bedside Urine Nitrite - Negative Bedside Urine Leukocytes ++ 125 Esterase ECG Data Attestation: I personally reviewed and interpreted this ECG as follows: Prior ECG tracings: available for review Interpretation: Patient has some motion artifact he has a lot of rigors has sinus tachycardia right bundle-branch block rate of 114 CO 172 QRS of 114 QTC of 443.? Patient has prior from 07/30/2024 appears fairly similar to today's.? [facility] Narrative Medical decision making narrative: Labs show white count of 32.9 hemoglobin of 10 platelets of 267 predominance of neutrophils with a bandemia of 12. INR is 1.23 creatinine is 1.76 sodium is 137 potassium 4.8 chloride 109 CO2 is 18 with a BUN of 14 glucose is 133 lactate 1.5 LFTs are otherwise negative procalcitonin is 0.85 poc urine positive for leukocyte esterase, no nitrates does not for blood positive for protein no ketones or glucose. Urine micro shows 10-30 white cells no red cells 1 squamous many bacteria was sent for culture. CT abdomen pelvis slight appearance decreased patchy enhancement with the kidneys could represent inflammation or inflammation such as pyelonephritis subcentimeter nonobstructing left renal calcification diverticulosis. Chest x-ray shows acute change. 79-year-old male chronically ill presents with rigors, fever nausea or vomiting. Patient recently had UTI/pyelonephritis and having ESBL E coli UTI and bacteremia and/orchitis. Was treated with IV antibiotics and improved in hospital and discharged. Patient represents not having abdominal testicular pain but somewhat similar symptoms appears septic possible UTI CT imaging shows possible pyelonephritis we will treat with Zosyn for little bit broader spectrum patient does have leukocytosis with bandemia as well as an ERVIN patient received he has been febrile hypotensive tachycardic. Patient received 2 L total of fluid, Zofran, Tylenol, Zosyn. Still continues to be hypotensive seemed to be somewhat responsive to fluids but then blood pressure drops again. We will discuss he was amenable to central line placement for potential pressors, he is agreeable to PICC line. He is less certain he wants a central line although if rapidly worsening would be potentially agreeable. He is DNR/DNI according to him and daughter at bedside. On rechecked patient does not appear improved rigors have resolved he states he feels much better although his pressures has been consistently in the 90s to 80s map is 61. Spoke with tele hospitalist, Dr. Pike patient accepted as inpatient/ICU. Discussed findings from tonight and prior visit. Did call for PICC line but unsure exact time they will be available. Patient was somewhat reluctant to have central line placed but I am happy to place it if he would like. He defers to PICC line service, discussed findings from today patient and workup suspect recurrent pyelonephritis. Critical Care Time Critical Care Time Critical Care Time: Yes Total Critical Care Time: 35 Attestation: The high probability of a clinically significant, sudden or life threatening deterioration of the cardiac system(s) required my full and direct attention, intervention and personal management. The aggregate critical care time was [--] minutes. This time is in addition to time spent performing reported procedures but includes the following: [x] Data Review and interpretation [x] Patient assessment and monitoring of vital signs [x] Documentation [x] Medication orders and management Discharge Plan Departure Patient Disposition: Admitted As Inpatient Clinical Impression: Pyelonephritis, Sepsis, ERVIN (acute kidney injury) Prescriptions: No Action aspirin 81 MG tablet,delayed release (DR/EC) 81 mg PO QDAY Qty: 0 atorvastatin 80 mg PO BEDTIME cyanocobalamin (vitamin B-12) [Vitamin B-12] 100 mcg Tablet 100 mcg PO DAILY Qty: 60 0RF famotidine [Pepcid AC] 20 mg Tablet 40 mg PO BID Qty: 60 0RF ascorbic acid (vitamin C) [Vitamin C] 500 mg Tablet 500 mg PO BID Qty: 60 0RF docusate sodium 100 mg Capsule 100 mg PO BID Qty: 60 0RF folic acid 1 mg Tablet 1 mg PO DAILY Qty: 60 0RF clopidogrel [Plavix] 75 mg tablet 75 mg PO DAILY Qty: 30 0RF magnesium oxide 400 mg (241.3 mg magnesium) Tablet 400 mg PO BID Qty: 60 0RF nicotine 7 mg/24 hr Patch 24 Hour 7 mg topical DAILY Qty: 30 0RF lisinopril 10 MG tablet 20 mg PO QDAY Qty: 90 1RF omeprazole 40 mg capsule,delayed release(DR/EC) 40 mg PO DAILY carvedilol 3.125 mg tablet 3.125 mg PO BID midodrine 2.5 mg tablet 2.5 mg PO TID furosemide 20 mg tablet 20 mg PO DAILY mirtazapine 7.5 mg tablet 7.5 mg PO BEDTIME potassium chloride 20 mEq tablet extended release 400 meq PO DAILY albuterol sulfate 90 mcg/actuation Hfa Aerosol Inhaler 2 puff INHALATION Q4-6H MDD 4 PRN (Reason: sob) [id number] Tablet 1 tab PO DAILY Referrals: Jayleen Alas MD [Primary Care Provider] -
[2024-09-11] MEDS: SODIUM CHLORIDE 0.9% 500 ML 1000 ML IV (00:27)
[2024-09-11] MEDS: ONDANSETRON 4 MG/2 ML INJ IV (00:27)
[2024-09-11] MEDS: ACETAMINOPHEN IV 1,000 MG/100 ML VIAL 400 MG IV (00:39)
--- NOTE | 2024-09-11 00:43 | DI.CT.S_ITS ---
PROCEDURE: CT ABDOMEN PELVIS W CON INDICATIONS: rigors, n/v had prior pyelonephritis last month TECHNIQUE: After the administration of intravenous contrast, axial sections acquired from the lung bases to the pubic symphysis. Coronal and sagittal reformats were performed. For radiation dose reduction, the following was used: automated exposure control, adjustment of mA and/or kV according to patient size. COMPARISON: [facility], CT, CT KIDNEY URETER BLADDER (KUB), 07/30/2024, 9:45. FINDINGS: Image quality: Diagnostic. Lower Chest: No significant findings. ABDOMEN: Liver: Unchanged low-attenuation hepatic focus too small to definitively characterize. Gallbladder: No radiopaque gallstones or wall thickening. Biliary ducts: No biliary dilation. Pancreas: No ductal dilation. Spleen: Size is within normal limits. Adrenal Glands: No adrenal nodules. Kidneys and Ureters: No hydronephrosis. No solid mass. No complex renal cystic lesion which requires follow up. 3 mm left renal calcification. Slight decreased appearance patchy enhancement within the kidneys bilaterally, greater than right. Stomach and Bowel: Normal colonic caliber, without significant wall thickening. Diverticula without inflammatory change. Peritoneum: No abnormal intraperitoneal fluid. No free air. Ventral Wall: No significant ventral hernia. Abdominal Nodes: No retroperitoneal or mesenteric adenopathy by size criteria. Vessels: Aorta demonstrates unchanged infrarenal aneurysmal dilation. PELVIS: Pelvic Organs: Unremarkable. Bladder: No bladder wall thickening, accounting for underdistention. Pelvic Nodes: No enlarged lymph nodes. Miscellaneous: No inguinal hernias are seen. Bones: No aggressive osseous abnormality. Left femoral fixation. Unchanged multilevel compression deformities. IMPRESSION: Slight appearance decreased patchy enhancement within the kidneys which could represent infection or inflammation such as pyelonephritis. Subcentimeter nonobstructing left renal calcification. Diverticulosis. Dictated by: My Davenport M.D. on 09/11/2024 at 1:20 Approved by: My Davenport M.D. on 09/11/2024 at 1:23
[2024-09-11 00:45] LABS: Mean Corpuscular HGB Conc 33.2 % (30-36); Mean Corpuscular Hemoglobin 32.5 PG (26-34); Platelet Count 267 X10^3/uL (150-400); Red Blood Cell Count 3.06 X10^6/uL (4.5-5.9); Red Cell Distribution Width 22.5 % (11.6-14.8)
[2024-09-11 00:48] LABS: Add Manual Diff / Slide Review YES
[2024-09-11 00:50] LABS: White Blood Cell Count 32.9 X10^3/uL (4.5-11.0)
[2024-09-11] MEDS: PIPERACILLIN/TAZO 4.5 GM in SODIUM CHLORIDE 0.9% 100 ML IV (00:51)
--- NOTE | 2024-09-11 00:53 | EKG_ITS ---
[address] [address] Test Date: 2024-09-11 Pat Name: Yazan Anderson Department: Room: Gender: Male Early Education Teacher: BONIFACIO : 1945 Requested By: Order Number: [id number] Reading MD: Nahid Belle MD Measurements Intervals [place] Rate: 117 P: 90 [place]: 168 QRS: 240 QRSD: 116 T: 74 QT: 326 QTc: 454 Interpretive Statements Suspect arm lead reversal, interpretation assumes no reversal Sinus tachycardia with premature atrial complexes with aberrant conduction Indeterminate axis Pulmonary disease pattern Right bundle branch block Electronically Signed On 09-11-2024 15:03:13 PDT by Nahid Belle MD
[2024-09-11 00:55] LABS: Urine Volume 10mL (spun)
--- NOTE | 2024-09-11 00:55 | EKG_ITS ---
[address] [address] Test Date: 2024-09-11 Pat Name: Yazan Anderson Department: Room: Gender: Male Pharmacy Technician Inpatient: BONIFACIO : 1945 Requested By: Order Number: [id number] Reading MD: Nahid Belle MD Measurements Intervals [place] Rate: 114 P: 80 [place]: 172 QRS: 228 QRSD: 114 T: 77 QT: 322 QTc: 443 Interpretive Statements Sinus tachycardia with fusion complexes Indeterminate axis Pulmonary disease pattern Right bundle branch block NO SIGNIFICANT CHANGE FROM PRIOR TRACING Electronically Signed On 09-11-2024 15:03:22 PDT by Nahid Belle MD
[2024-09-11 00:56] LABS: Bacteria Urine Many (>30); Culture Indicated Urine Specimen Cultured; RBC Urine None Seen (0-5/HPF); Squamous Epithelial Cell Urine 0-1 /HPF (0-5/HPF); WBC Urine 10-30/HPF (0-5/HPF)
[2024-09-11 01:08] LABS: INR 1.2 (0.9-1.3); Prothrombin Time 13.5 SECONDS (9.4-12.5)
[2024-09-11 01:11] LABS: PTT Partial Thromboplastin Tim 29 SECONDS (25.1-36.5)
[2024-09-11 01:12] LABS: Lactate (Lactic Acid) 1.5 mmol/L (0.7-2.1)
[2024-09-11 01:13] LABS: Alanine Aminotransferase 16 IU/L (<50); Albumin 3.8 g/dL (3.5-5.0); Albumin Globulin Ratio 1.3 (1.0-2.8); Alkaline Phosphatase 63 U/L (38-126); Aspartate Aminotransferase 20 IU/L (17-59); BUN Creatinine Ratio 23.9 (6-22); Bilirubin Total 1.2 mg/dL (0.2-1.3); Blood Urea Nitrogen 42 mg/dL (9-20); Calcium 8.9 mg/dL (8.4-10.2); Carbon Dioxide 18 mmol/L (22-32); Chloride 109 mmol/L (98-107); Estimated Glomerular Filt Rate 39 mL/min (>60); Globulin 2.9 g/dL (1.7-4.1); Glucose 133 mg/dL (80-110); HEMOLYSIS < 15 (0-50); Lipase 30 U/L (23-300); Potassium 4.8 mmol/L (3.4-5.1); Sodium 137 mmol/L (137-145); Total Protein 6.7 g/dL (6.3-8.2)
[2024-09-11 01:28] LABS: Anisocytosis 2+; Macrocytosis 1+; Microcytosis 1+; Neutrophils Absolute Manual 29610 /uL (3000-5900); Ovalocytes 1+; Platelet Estimate Adequate on smear; Total Cells Counted 100
[2024-09-11] MEDS: SODIUM CHLORIDE 0.9% 1,000 ML 1000 ML IV (01:30)
[2024-09-11] MEDS: LIDOCAINE 2% (GLYDO) 6 ML GEL TOP (02:31)
--- NOTE | 2024-09-11 02:42 | PC.NURSE ---
temp sensing méndez inserted
[2024-09-11] MEDS: NOREPINEPHRINE BITARTRATE/D5W 4 MG/250 ML PLAST..BAG 20.438 MG IV (02:48)
[2024-09-11] MEDS: SODIUM CHLORIDE 0.9% 1,000 ML 150 ML IV ×3 (02:57→23:20)
[2024-09-11] MEDS: ACETAMINOPHEN 325 MG TABLET 650 MG PO ×2 (05:56→11:36)
[2024-09-11] MEDS: PIPERACILLIN/TAZO 3.375 GM in SODIUM CHLORIDE 0.9% 100 ML IV ×3 (05:57→21:01)
--- NOTE | 2024-09-11 06:46 | PC.NURSE ---
Pt. arrived to the unit via stretcher, transferred to ICU bed using transfer board. Pt. is alert and oriented but anxious and shivering stating he is cold. Pt. is feverish with a temp of 100.2, oral tylenol administered for fever and low back pain and IV Zosyn started. Pt. on Levophed at 0.1 mcg/kg/min. Pt. is in sinus tachycardia with stable B/P. Oriented pt. to bed control and call light use Instructed to never get out of bed without assistance. Pt. understood. Fall precaution in place with bed alarm activated.
[2024-09-11 06:54] LABS: MRSA (Nasal) PCR NOT DETECTED (Not Detect)
--- NOTE | 2024-09-11 07:25 | PM.HP.1 ---
History of Present Illness History of Present Illness Date Patient Seen: 09/11/24 Time Patient Seen: 04:30 Chief complaint: N/V/D Narrative: 79 y/o chronically ill presents with rigors, fever, nausea and vomiting. He was recently hospitalized with UTI/pyelonephritis with ESBL E coli and orchitis. Was treated with IV antibiotics and improved in hospital and discharged. Today without abdominal or testicular pain. Has b/l flank pain. ED workup showing WBC of 32.9, Hb of 10, INR is 1.23 creatinine is 1.76 sodium is 137 potassium 4.8 chloride 109 CO2 is 18 with a BUN of 14 glucose is 133 lactate 1.5 LFTs WNR, procalcitonin is 0.85 poc urine positive for leukocyte esterase, no nitrates does not for blood positive for protein no ketones or glucose. Urine micro shows 10-30 white cells no red cells 1 squamous many bacteria was sent for culture. CT abdomen pelvis slight appearance decreased patchy enhancement with the kidneys could represent inflammation or inflammation such as pyelonephritis subcentimeter nonobstructing left renal calcification diverticulosis. Chest x-ray shows likely pulmonary edema. Covered with Zosyn and admitted to ICU on levophed. [facility] Medical History Claudication of both lower extremities COPD (chronic obstructive pulmonary disease) Hyperlipidemia CAD (coronary artery disease) HTN (hypertension) Surgical History History of heart artery stent Social History household members: none Smoking Status: Current every day smoker alcohol intake: current Meds Home Medications and Allergies Home Medications Medication Instructions Recorded Confirmed Type aspirin 81 mg tablet,delayed 81 mg PO QDAY ##0 06/23/12 07/30/24 History release atorvastatin 80 mg PO BEDTIME 06/21/21 07/30/24 History ascorbic acid (vitamin C) 500 mg 500 mg PO BID #60 tabs 06/25/21 07/30/24 Rx tablet (Vitamin C) clopidogrel 75 mg tablet (Plavix) 75 mg PO DAILY #30 tabs 06/25/21 07/31/24 Rx cyanocobalamin (vitamin B-12) 100 100 mcg PO DAILY #60 tabs 06/25/21 07/30/24 Rx mcg tablet (Vitamin B-12) docusate sodium 100 mg capsule 100 mg PO BID #60 caps 06/25/21 07/30/24 Rx famotidine 20 mg tablet (Pepcid AC) 40 mg (2 x 20 mg) PO BID #60 tabs 06/25/21 07/30/24 Rx folic acid 1 mg tablet 1 mg PO DAILY #60 tabs 06/25/21 07/30/24 Rx lisinopril 10 mg tablet 20 mg (2 x 10 mg) PO QDAY #90 tabs 08/18/22 07/30/24 Rx magnesium oxide 400 mg (241.3 mg 400 mg PO BID #60 tabs 08/18/22 07/30/24 Rx magnesium) tablet nicotine 7 mg/24 hr daily 7 mg topical DAILY #30 ea 08/18/22 07/30/24 Rx transdermal patch albuterol sulfate 90 mcg/actuation 2 puff inhalation Q4-6H PRN sob 07/30/24 07/30/24 History aerosol inhaler carvedilol 3.125 mg tablet 3.125 mg PO BID 07/30/24 07/30/24 History furosemide 20 mg tablet 20 mg PO DAILY 07/30/24 07/30/24 History midodrine 2.5 mg tablet 2.5 mg PO TID 07/30/24 07/30/24 History mirtazapine 7.5 mg tablet 7.5 mg PO BEDTIME 07/30/24 07/30/24 History zuejykkjgznx-nkvhsdgc-zlnfox tablet 1 tab PO DAILY 07/30/24 07/30/24 History omeprazole 40 mg capsule,delayed 40 mg PO DAILY 07/30/24 07/30/24 History release potassium chloride 20 mEq 400 meq PO DAILY 07/30/24 07/30/24 History tablet,extended release Allergies Allergy/AdvReac Type Severity Reaction Status Date / Time No Known Drug Allergies Allergy Verified 07/30/24 08:50 Review of Systems Review of Systems Narrative: General - generalized weakness, fever, rigors UG - flank pain CVS - w/o chest pain RS - w/o cough Exam Vital Signs (past 8 hours): - 09/11/24 00:08 09/11/24 00:09 09/11/24 00:09 Temperature Pulse Rate Respiratory Rate Blood Pressure 145/95 H Pulse Oximetry 96 93 Oxygen Delivery Method Oxygen Flow Rate 09/11/24 00:12 09/11/24 00:30 09/11/24 00:47 Temperature 100.9 F H Pulse Rate 48 L 114 H Respiratory Rate 20 31 H Blood Pressure 145/95 H 132/102 H Pulse Oximetry 91 Oxygen Delivery Method Room Air Oxygen Flow Rate 09/11/24 00:47 09/11/24 01:09 09/11/24 01:11 Temperature Pulse Rate 63 111 H Respiratory Rate 27 H Blood Pressure 106/59 L Pulse Oximetry 77 L 100 Oxygen Delivery Method Oxygen Flow Rate 09/11/24 01:11 09/11/24 01:15 09/11/24 01:15 Temperature Pulse Rate 112 H Respiratory Rate 25 H Blood Pressure 84/52 L 79/47 L Pulse Oximetry 100 Oxygen Delivery Method Nasal Cannula Oxygen Flow Rate 2 09/11/24 01:17 09/11/24 01:17 09/11/24 01:25 Temperature Pulse Rate 112 H Respiratory Rate 28 H Blood Pressure 80/53 L 103/61 Pulse Oximetry 100 Oxygen Delivery Method Room Air Oxygen Flow Rate 09/11/24 01:25 09/11/24 01:30 09/11/24 01:30 Temperature Pulse Rate 109 H 111 H Respiratory Rate 30 H 29 H Blood Pressure 83/45 L Pulse Oximetry 100 99 Oxygen Delivery Method Oxygen Flow Rate 09/11/24 01:38 09/11/24 01:38 09/11/24 01:45 Temperature Pulse Rate 110 H 110 H Respiratory Rate 29 H 33 H Blood Pressure 93/51 L Pulse Oximetry 95 96 Oxygen Delivery Method Oxygen Flow Rate 09/11/24 01:45 09/11/24 02:00 09/11/24 02:00 Temperature Pulse Rate 107 H Respiratory Rate 29 H Blood Pressure 86/53 L 81/49 L Pulse Oximetry 95 Oxygen Delivery Method Oxygen Flow Rate 09/11/24 02:15 09/11/24 02:15 09/11/24 02:30 Temperature Pulse Rate 109 H 106 H Respiratory Rate 28 H 27 H Blood Pressure 86/53 L Pulse Oximetry 94 94 Oxygen Delivery Method Oxygen Flow Rate 09/11/24 02:30 09/11/24 02:45 09/11/24 02:45 Temperature 98.1 F Pulse Rate 104 H Respiratory Rate 26 H Blood Pressure 92/50 L 90/53 L Pulse Oximetry 93 Oxygen Delivery Method Oxygen Flow Rate 09/11/24 02:50 09/11/24 02:50 09/11/24 02:55 Temperature 98.6 F 98.8 F Pulse Rate 104 H 101 H Respiratory Rate 27 H 27 H Blood Pressure 90/52 L Pulse Oximetry 92 95 Oxygen Delivery Method Oxygen Flow Rate 09/11/24 02:55 09/11/24 03:00 09/11/24 03:00 Temperature 98.8 F Pulse Rate 62 Respiratory Rate 24 Blood Pressure 85/46 L 137/69 Pulse Oximetry 97 Oxygen Delivery Method Oxygen Flow Rate 09/11/24 03:05 09/11/24 03:05 09/11/24 03:10 Temperature 99.0 F Pulse Rate 84 Respiratory Rate 27 H Blood Pressure 90/54 L 118/66 Pulse Oximetry 95 Oxygen Delivery Method Oxygen Flow Rate 09/11/24 03:10 09/11/24 03:15 09/11/24 03:15 Temperature 99.0 F 98.8 F Pulse Rate 90 90 Respiratory Rate 26 H 26 H Blood Pressure 134/66 Pulse Oximetry 97 96 Oxygen Delivery Method Oxygen Flow Rate 09/11/24 03:20 09/11/24 03:20 09/11/24 03:25 Temperature 98.8 F 98.8 F Pulse Rate 85 82 Respiratory Rate 27 H 27 H Blood Pressure 129/62 Pulse Oximetry 96 96 Oxygen Delivery Method Oxygen Flow Rate 09/11/24 03:25 09/11/24 03:30 09/11/24 03:30 Temperature 98.6 F Pulse Rate 91 H Respiratory Rate 24 Blood Pressure 120/58 L 123/64 Pulse Oximetry 96 Oxygen Delivery Method Oxygen Flow Rate 09/11/24 03:35 09/11/24 03:35 09/11/24 03:40 Temperature 98.4 F 98.4 F Pulse Rate 92 H 82 Respiratory Rate 25 H 24 Blood Pressure 131/65 Pulse Oximetry 96 96 Oxygen Delivery Method Oxygen Flow Rate 09/11/24 03:40 09/11/24 03:45 09/11/24 03:45 Temperature 98.4 F Pulse Rate 87 Respiratory Rate 24 Blood Pressure 128/62 124/67 Pulse Oximetry 96 Oxygen Delivery Method Oxygen Flow Rate 09/11/24 03:50 09/11/24 03:50 09/11/24 03:55 Temperature 98.2 F Pulse Rate 101 H Respiratory Rate 23 Blood Pressure 139/87 110/57 L Pulse Oximetry 98 Oxygen Delivery Method Oxygen Flow Rate 09/11/24 03:55 09/11/24 04:00 09/11/24 04:00 Temperature 98.2 F 98.1 F Pulse Rate 96 H 100 H Respiratory Rate 37 H 23 Blood Pressure 111/58 L Pulse Oximetry 97 97 Oxygen Delivery Method Oxygen Flow Rate 09/11/24 04:05 09/11/24 04:05 09/11/24 04:10 Temperature 98.1 F Pulse Rate 94 H Respiratory Rate 23 Blood Pressure 115/61 117/59 L Pulse Oximetry 97 Oxygen Delivery Method Oxygen Flow Rate 09/11/24 04:10 09/11/24 04:15 09/11/24 04:15 Temperature 98.1 F 98.1 F Pulse Rate 96 H 103 H Respiratory Rate 25 H 23 Blood Pressure 110/82 Pulse Oximetry 97 97 Oxygen Delivery Method Oxygen Flow Rate 09/11/24 04:20 09/11/24 04:20 09/11/24 04:25 Temperature 98.2 F Pulse Rate 100 H Respiratory Rate 23 Blood Pressure 137/70 135/70 Pulse Oximetry 98 Oxygen Delivery Method Oxygen Flow Rate 09/11/24 04:25 09/11/24 04:30 09/11/24 04:30 Temperature 98.2 F 98.2 F Pulse Rate 100 H 101 H Respiratory Rate 25 H 25 H Blood Pressure 141/75 H Pulse Oximetry 97 97 Oxygen Delivery Method Oxygen Flow Rate 09/11/24 04:35 09/11/24 04:35 09/11/24 04:40 Temperature 98.4 F 98.4 F Pulse Rate 104 H 103 H Respiratory Rate 18 27 H Blood Pressure 145/75 H Pulse Oximetry 97 97 Oxygen Delivery Method Oxygen Flow Rate 09/11/24 04:40 09/11/24 04:50 09/11/24 04:50 Temperature 98.9 F 98.6 F Pulse Rate 121 H 103 H Respiratory Rate 24 29 H Blood Pressure 138/68 101/60 Pulse Oximetry 99 97 Oxygen Delivery Method Oxygen Flow Rate 09/11/24 04:50 09/11/24 05:10 09/11/24 05:10 Temperature 99.0 F Pulse Rate 104 H Respiratory Rate 24 Blood Pressure 138/71 135/79 Pulse Oximetry 99 Oxygen Delivery Method Oxygen Flow Rate 09/11/24 05:56 09/11/24 06:00 09/11/24 06:15 Temperature 100.2 F H 99.9 F H Pulse Rate 122 H Respiratory Rate 25 H Blood Pressure 161/78 H Pulse Oximetry 96 Oxygen Delivery Method Room Air Oxygen Flow Rate 0 09/11/24 06:31 Temperature 99.9 F H Pulse Rate Respiratory Rate Blood Pressure Pulse Oximetry Oxygen Delivery Method Oxygen Flow Rate Oxygen Delivery Method Room Air Oxygen Flow Rate 0 Narrative Exam Narrative: General - appears weak, somnolent HEENT - normocephalic GI - abdomen soft, not distended CVS - tachycardic RS - tachypneic Neuro - lucid, w/o motor deficits Objective ECG Impression: Sinus tachycardia 114 RBBB QT [address] scan - abdomen: Radiologist's impression: Slight appearance decreased patchy enhancement within the kidneys which could represent infection or inflammation such as pyelonephritis. Subcentimeter nonobstructing left renal calcification. Diverticulosis. Labs 09/11/24 00:26 09/11/24 00:41 Labs: Laboratory Results - last 24 hr 09/11/24 09/11/24 09/11/24 00:14 00:26 00:41 WBC 32.9 H* RBC 3.06 L Hgb 10.0 L Hct 30.0 L MCV 98.0 MCH 32.5 MCHC 33.2 RDW 22.5 H Plt Count 267 Neut % (Auto) Not Reportable Lymph % (Auto) Not Reportable Ector % (Auto) Not Reportable Eos % (Auto) Not Reportable Baso % (Auto) Not Reportable Lymph # (Auto) Not Reportable Ector # (Auto) Not Reportable Baso # (Auto) Not Reportable Total Counted 100 Seg Neutrophils % 78.0 H Band Neutrophils % 12.0 H Lymphocytes % (Manual) 9.0 L Monocytes % (Manual) 1.0 L Neutrophils # (Manual) 35877 H Hypogranular Neuts Cancelled Platelet Estimate Adequate on smear RBC Morphology See below Anisocytosis 2+ H Microcytosis 1+ H Macrocytosis 1+ H Ovalocytes 1+ H PT 13.5 H INR 1.2 APTT 29 Sodium 137 Potassium 4.8 Chloride 109 H Carbon Dioxide 18 L BUN 42 H Creatinine 1.76 H Estimated GFR 39 L BUN/Creatinine Ratio 23.9 H Glucose 133 H Lactate 1.5 Calcium 8.9 Total Bilirubin 1.2 AST 20 ALT 16 Alkaline Phosphatase 63 Total Protein 6.7 Albumin 3.8 Globulin 2.9 Albumin/Globulin Ratio 1.3 Lipase 30 Procalcitonin 0.850 H Urine RBC None seen Urine WBC 10-30/hpf H Ur Squamous Epith Cells 0-1 /hpf Urine Bacteria Many (>30) H Ur Culture Indicated? Specimen cultured Vol Urine Centrifuged 10ml (spun) Nasal Screen MRSA (PCR) 09/11/24 05:10 WBC RBC Hgb Hct MCV MCH MCHC RDW Plt Count Neut % (Auto) Lymph % (Auto) Ector % (Auto) Eos % (Auto) Baso % (Auto) Lymph # (Auto) Ector # (Auto) Baso # (Auto) Total Counted Seg Neutrophils % Band Neutrophils % Lymphocytes % (Manual) Monocytes % (Manual) Neutrophils # (Manual) Hypogranular Neuts Platelet Estimate RBC Morphology Anisocytosis Microcytosis Macrocytosis Ovalocytes PT INR APTT Sodium Potassium Chloride Carbon Dioxide BUN Creatinine Estimated GFR BUN/Creatinine Ratio Glucose Lactate Calcium Total Bilirubin AST ALT Alkaline Phosphatase Total Protein Albumin Globulin Albumin/Globulin Ratio Lipase Procalcitonin Urine RBC Urine WBC Ur Squamous Epith Cells Urine Bacteria Ur Culture Indicated? Vol Urine Centrifuged Nasal Screen MRSA (PCR) Not detected Assessment & Plan Assessment and plan (1) Pyelonephritis: Status: Acute (2) Sepsis: Status: Acute (3) ERVIN (acute kidney injury): Status: Acute Assessment & Plan narrative: Pyelonephritis / sepsis - Zosyn - IVFs, cautiously - pressor - PICC line this AM HTN / CAD / HLD - off Coreg - ASA, Plavix, statin COPD / Smoking - albuterol, nicotine patch DVT prophylaxis - heparin GI prophylaxis - Pepcid Time-Based Coding :: [TOTAL MINUTES] spent with patient and on the chart (including review of chart, obtaining history, exam, reviewing outside data, placing orders, documenting exam and treatment plan, and counseling patient) on [DATE]. Quality VTE Deep Vein Thrombosis/Pulmonary Embolism Present on Admission: Yes
--- NOTE | 2024-09-11 08:48 | PM.HP.IH.1 ---
History of Present Illness History of Present Illness Date Patient Seen: 09/11/24 Time Patient Seen: 08:30 Chief complaint: N/V/D Narrative: Night hospitalist: 79 y/o chronically ill presents with rigors, fever, nausea and vomiting. He was recently hospitalized with UTI/pyelonephritis with ESBL E coli and orchitis. Was treated with IV antibiotics and improved in hospital and discharged. Today without abdominal or testicular pain. Has b/l flank pain. ED workup showing WBC of 32.9, Hb of 10, INR is 1.23 creatinine is 1.76 sodium is 137 potassium 4.8 chloride 109 CO2 is 18 with a BUN of 14 glucose is 133 lactate 1.5 LFTs WNR, procalcitonin is 0.85 poc urine positive for leukocyte esterase, no nitrates does not for blood positive for protein no ketones or glucose. Urine micro shows 10-30 white cells no red cells 1 squamous many bacteria was sent for culture. CT abdomen pelvis slight appearance decreased patchy enhancement with the kidneys could represent inflammation or inflammation such as pyelonephritis subcentimeter nonobstructing left renal calcification diverticulosis. Chest x-ray shows likely pulmonary edema. Covered with Zosyn and admitted to ICU on levophed. Interim history: The patient denies pain complaints. He was hospitalized with pyelonephritis and orchitis due to MDR E.coli and discharged 08/03/2024 on 14 days of ertapenam IV through the outpatient infusion center. He has had difficulty urinating since then with urinary urgency and frequency. His Levophed is weaning down and he states he is feeling better. He smokes 2 packs of cigarettes daily. [facility] Medical History CAD (coronary artery disease) Claudication of both lower extremities COPD (chronic obstructive pulmonary disease) HTN (hypertension) Hyperlipidemia Surgical History History of heart artery stent Social History household members: none Smoking Status: Current every day smoker alcohol intake: current Meds Home Medications and Allergies Home Medications Medication Instructions Recorded Confirmed Type aspirin 81 mg tablet,delayed 81 mg PO QDAY ##0 06/23/12 07/30/24 History release atorvastatin 80 mg PO BEDTIME 06/21/21 07/30/24 History ascorbic acid (vitamin C) 500 mg 500 mg PO BID #60 tabs 06/25/21 07/30/24 Rx tablet (Vitamin C) clopidogrel 75 mg tablet (Plavix) 75 mg PO DAILY #30 tabs 06/25/21 07/31/24 Rx cyanocobalamin (vitamin B-12) 100 100 mcg PO DAILY #60 tabs 06/25/21 07/30/24 Rx mcg tablet (Vitamin B-12) docusate sodium 100 mg capsule 100 mg PO BID #60 caps 06/25/21 07/30/24 Rx famotidine 20 mg tablet (Pepcid AC) 40 mg (2 x 20 mg) PO BID #60 tabs 06/25/21 07/30/24 Rx folic acid 1 mg tablet 1 mg PO DAILY #60 tabs 06/25/21 07/30/24 Rx lisinopril 10 mg tablet 20 mg (2 x 10 mg) PO QDAY #90 tabs 08/18/22 07/30/24 Rx magnesium oxide 400 mg (241.3 mg 400 mg PO BID #60 tabs 08/18/22 07/30/24 Rx magnesium) tablet nicotine 7 mg/24 hr daily 7 mg topical DAILY #30 ea 08/18/22 07/30/24 Rx transdermal patch albuterol sulfate 90 mcg/actuation 2 puff inhalation Q4-6H PRN sob 07/30/24 07/30/24 History aerosol inhaler carvedilol 3.125 mg tablet 3.125 mg PO BID 07/30/24 07/30/24 History furosemide 20 mg tablet 20 mg PO DAILY 07/30/24 07/30/24 History midodrine 2.5 mg tablet 2.5 mg PO TID 07/30/24 07/30/24 History mirtazapine 7.5 mg tablet 7.5 mg PO BEDTIME 07/30/24 07/30/24 History hsvmopbgaiss-kuluqpgl-fcenrg tablet 1 tab PO DAILY 07/30/24 07/30/24 History omeprazole 40 mg capsule,delayed 40 mg PO DAILY 07/30/24 07/30/24 History release potassium chloride 20 mEq 400 meq PO DAILY 07/30/24 07/30/24 History tablet,extended release Allergies Allergy/AdvReac Type Severity Reaction Status Date / Time No Known Drug Allergies Allergy Verified 07/30/24 08:50 Review of Systems Review of Systems ROS: Yes All systems reviewed with the patient and are negative except as otherwise documented Exam Vital Signs (past 8 hours): - 09/11/24 01:09 09/11/24 01:11 09/11/24 01:11 Temperature Pulse Rate 63 111 H Respiratory Rate 27 H Blood Pressure 84/52 L Pulse Oximetry 77 L 100 Oxygen Delivery Method Oxygen Flow Rate 09/11/24 01:15 09/11/24 01:15 09/11/24 01:17 Temperature Pulse Rate 112 H 112 H Respiratory Rate 25 H 28 H Blood Pressure 79/47 L Pulse Oximetry 100 100 Oxygen Delivery Method Nasal Cannula Oxygen Flow Rate 2 09/11/24 01:17 09/11/24 01:25 09/11/24 01:25 Temperature Pulse Rate 109 H Respiratory Rate 30 H Blood Pressure 80/53 L 103/61 Pulse Oximetry 100 Oxygen Delivery Method Room Air Oxygen Flow Rate 09/11/24 01:30 09/11/24 01:30 09/11/24 01:38 Temperature Pulse Rate 111 H Respiratory Rate 29 H Blood Pressure 83/45 L 93/51 L Pulse Oximetry 99 Oxygen Delivery Method Oxygen Flow Rate 09/11/24 01:38 09/11/24 01:45 09/11/24 01:45 Temperature Pulse Rate 110 H 110 H Respiratory Rate 29 H 33 H Blood Pressure 86/53 L Pulse Oximetry 95 96 Oxygen Delivery Method Oxygen Flow Rate 09/11/24 02:00 09/11/24 02:00 09/11/24 02:15 Temperature Pulse Rate 107 H 109 H Respiratory Rate 29 H 28 H Blood Pressure 81/49 L Pulse Oximetry 95 94 Oxygen Delivery Method Oxygen Flow Rate 09/11/24 02:15 09/11/24 02:30 09/11/24 02:30 Temperature Pulse Rate 106 H Respiratory Rate 27 H Blood Pressure 86/53 L 92/50 L Pulse Oximetry 94 Oxygen Delivery Method Oxygen Flow Rate 09/11/24 02:45 09/11/24 02:45 09/11/24 02:50 Temperature 98.1 F 98.6 F Pulse Rate 104 H 104 H Respiratory Rate 26 H 27 H Blood Pressure 90/53 L Pulse Oximetry 93 92 Oxygen Delivery Method Oxygen Flow Rate 09/11/24 02:50 09/11/24 02:55 09/11/24 02:55 Temperature 98.8 F Pulse Rate 101 H Respiratory Rate 27 H Blood Pressure 90/52 L 85/46 L Pulse Oximetry 95 Oxygen Delivery Method Oxygen Flow Rate 09/11/24 03:00 09/11/24 03:00 09/11/24 03:05 Temperature 98.8 F 99.0 F Pulse Rate 62 84 Respiratory Rate 24 27 H Blood Pressure 137/69 Pulse Oximetry 97 95 Oxygen Delivery Method Oxygen Flow Rate 09/11/24 03:05 09/11/24 03:10 09/11/24 03:10 Temperature 99.0 F Pulse Rate 90 Respiratory Rate 26 H Blood Pressure 90/54 L 118/66 Pulse Oximetry 97 Oxygen Delivery Method Oxygen Flow Rate 09/11/24 03:15 09/11/24 03:15 09/11/24 03:20 Temperature 98.8 F 98.8 F Pulse Rate 90 85 Respiratory Rate 26 H 27 H Blood Pressure 134/66 Pulse Oximetry 96 96 Oxygen Delivery Method Oxygen Flow Rate 09/11/24 03:20 09/11/24 03:25 09/11/24 03:25 Temperature 98.8 F Pulse Rate 82 Respiratory Rate 27 H Blood Pressure 129/62 120/58 L Pulse Oximetry 96 Oxygen Delivery Method Oxygen Flow Rate 09/11/24 03:30 09/11/24 03:30 09/11/24 03:35 Temperature 98.6 F 98.4 F Pulse Rate 91 H 92 H Respiratory Rate 24 25 H Blood Pressure 123/64 Pulse Oximetry 96 96 Oxygen Delivery Method Oxygen Flow Rate 09/11/24 03:35 09/11/24 03:40 09/11/24 03:40 Temperature 98.4 F Pulse Rate 82 Respiratory Rate 24 Blood Pressure 131/65 128/62 Pulse Oximetry 96 Oxygen Delivery Method Oxygen Flow Rate 09/11/24 03:45 09/11/24 03:45 09/11/24 03:50 Temperature 98.4 F 98.2 F Pulse Rate 87 101 H Respiratory Rate 24 23 Blood Pressure 124/67 Pulse Oximetry 96 98 Oxygen Delivery Method Oxygen Flow Rate 09/11/24 03:50 09/11/24 03:55 09/11/24 03:55 Temperature 98.2 F Pulse Rate 96 H Respiratory Rate 37 H Blood Pressure 139/87 110/57 L Pulse Oximetry 97 Oxygen Delivery Method Oxygen Flow Rate 09/11/24 04:00 09/11/24 04:00 09/11/24 04:05 Temperature 98.1 F Pulse Rate 100 H Respiratory Rate 23 Blood Pressure 111/58 L 115/61 Pulse Oximetry 97 Oxygen Delivery Method Oxygen Flow Rate 09/11/24 04:05 09/11/24 04:10 09/11/24 04:10 Temperature 98.1 F 98.1 F Pulse Rate 94 H 96 H Respiratory Rate 23 25 H Blood Pressure 117/59 L Pulse Oximetry 97 97 Oxygen Delivery Method Oxygen Flow Rate 09/11/24 04:15 09/11/24 04:15 09/11/24 04:20 Temperature 98.1 F Pulse Rate 103 H Respiratory Rate 23 Blood Pressure 110/82 137/70 Pulse Oximetry 97 Oxygen Delivery Method Oxygen Flow Rate 09/11/24 04:20 09/11/24 04:25 09/11/24 04:25 Temperature 98.2 F 98.2 F Pulse Rate 100 H 100 H Respiratory Rate 23 25 H Blood Pressure 135/70 Pulse Oximetry 98 97 Oxygen Delivery Method Oxygen Flow Rate 09/11/24 04:30 09/11/24 04:30 09/11/24 04:35 Temperature 98.2 F 98.4 F Pulse Rate 101 H 104 H Respiratory Rate 25 H 18 Blood Pressure 141/75 H Pulse Oximetry 97 97 Oxygen Delivery Method Oxygen Flow Rate 09/11/24 04:35 09/11/24 04:40 09/11/24 04:40 Temperature 98.4 F Pulse Rate 103 H Respiratory Rate 27 H Blood Pressure 145/75 H 138/68 Pulse Oximetry 97 Oxygen Delivery Method Oxygen Flow Rate 09/11/24 04:50 09/11/24 04:50 09/11/24 04:50 Temperature 98.9 F 98.6 F Pulse Rate 121 H 103 H Respiratory Rate 24 29 H Blood Pressure 101/60 138/71 Pulse Oximetry 99 97 Oxygen Delivery Method Oxygen Flow Rate 09/11/24 05:10 09/11/24 05:10 09/11/24 05:56 Temperature 99.0 F 100.2 F H Pulse Rate 104 H Respiratory Rate 24 Blood Pressure 135/79 Pulse Oximetry 99 Oxygen Delivery Method Oxygen Flow Rate 09/11/24 06:00 09/11/24 06:15 09/11/24 06:31 Temperature 99.9 F H 99.9 F H Pulse Rate 122 H Respiratory Rate 25 H Blood Pressure 161/78 H Pulse Oximetry 96 Oxygen Delivery Method Room Air Oxygen Flow Rate 0 Oxygen Delivery Method Room Air Oxygen Flow Rate 0 Narrative Exam Narrative: GENERAL: This is a thin, pleasant male patient, in no apparent distress. HEAD: Atraumatic. Normocephalic. No temporal or scalp tenderness. EYES: Pupils equal round and reactive. Extraocular motions intact. No scleral icterus. No injection or drainage. ENT: Mucous membranes pink and moist. NECK: Trachea midline. No JVD, bruits or lymphadenopathy. Supple, nontender, no meningeal signs. CARDIOVASCULAR: Tachycardic rhythm without murmurs, gallops, or rubs. RESPIRATORY: Clear to auscultation. GASTROINTESTINAL: Abdomen soft, non-tender, nondistended. EXTREMITIES: No clubbing, cyanosis, or edema. BACK: Chronic kyphosis and scoliosis deformity. Nontender without deformity or crepitance. No flank tenderness. NEUROLOGIC: Alert, oriented, speech fluent, full upper and lower motor strength, no focal deficits evident. DERMATOLOGIC: No rashes or skin lesions. Objective ECG Impression: Sinus tachycardia at 114bpm with fusion complexes; Indeterminate axis; Pulmonary disease pattern; Right bundle branch block Imaging Chest x-ray: My impression: No acute consolidations. Radiologist's impression: Surgical changes and devices: None. Lungs and pleura: Interstitial. No pleural effusions or pneumothorax. Mediastinum: Mediastinal contours appear normal. Heart size is . Bones and chest wall: No suspicious bony lesions. Overlying soft tissues appear unremarkable. IMPRESSION: Acute consolidations. 09/11 Reviewed with radiologist on-duty who states no infiltrates or consolidations are present and will dictate an addendum to that effect. CT scan - abdomen: Radiologist's impression: Slight appearance decreased patchy enhancement within the kidneys which could represent infection or inflammation such as pyelonephritis. Subcentimeter nonobstructing left renal calcification. Diverticulosis. Labs 09/11/24 00:26 09/11/24 00:41 Labs: Laboratory Results - last 24 hr 09/11/24 09/11/24 09/11/24 00:14 00:26 00:41 WBC 32.9 H* RBC 3.06 L Hgb 10.0 L Hct 30.0 L MCV 98.0 MCH 32.5 MCHC 33.2 RDW 22.5 H Plt Count 267 Neut % (Auto) Not Reportable Lymph % (Auto) Not Reportable Reeves % (Auto) Not Reportable Eos % (Auto) Not Reportable Baso % (Auto) Not Reportable Lymph # (Auto) Not Reportable Reeves # (Auto) Not Reportable Baso # (Auto) Not Reportable Total Counted 100 Seg Neutrophils % 78.0 H Band Neutrophils % 12.0 H Lymphocytes % (Manual) 9.0 L Monocytes % (Manual) 1.0 L Neutrophils # (Manual) 44399 H Hypogranular Neuts Cancelled Platelet Estimate Adequate on smear RBC Morphology See below Anisocytosis 2+ H Microcytosis 1+ H Macrocytosis 1+ H Ovalocytes 1+ H PT 13.5 H INR 1.2 APTT 29 Sodium 137 Potassium 4.8 Chloride 109 H Carbon Dioxide 18 L BUN 42 H Creatinine 1.76 H Estimated GFR 39 L BUN/Creatinine Ratio 23.9 H Glucose 133 H Lactate 1.5 Calcium 8.9 Total Bilirubin 1.2 AST 20 ALT 16 Alkaline Phosphatase 63 Total Protein 6.7 Albumin 3.8 Globulin 2.9 Albumin/Globulin Ratio 1.3 Lipase 30 Procalcitonin 0.850 H Urine RBC None seen Urine WBC 10-30/hpf H Ur Squamous Epith Cells 0-1 /hpf Urine Bacteria Many (>30) H Ur Culture Indicated? Specimen cultured Vol Urine Centrifuged 10ml (spun) Nasal Screen MRSA (PCR) 09/11/24 05:10 WBC RBC Hgb Hct MCV MCH MCHC RDW Plt Count Neut % (Auto) Lymph % (Auto) Reeves % (Auto) Eos % (Auto) Baso % (Auto) Lymph # (Auto) Reeves # (Auto) Baso # (Auto) Total Counted Seg Neutrophils % Band Neutrophils % Lymphocytes % (Manual) Monocytes % (Manual) Neutrophils # (Manual) Hypogranular Neuts Platelet Estimate RBC Morphology Anisocytosis Microcytosis Macrocytosis Ovalocytes PT INR APTT Sodium Potassium Chloride Carbon Dioxide BUN Creatinine Estimated GFR BUN/Creatinine Ratio Glucose Lactate Calcium Total Bilirubin AST ALT Alkaline Phosphatase Total Protein Albumin Globulin Albumin/Globulin Ratio Lipase Procalcitonin Urine RBC Urine WBC Ur Squamous Epith Cells Urine Bacteria Ur Culture Indicated? Vol Urine Centrifuged Nasal Screen MRSA (PCR) Not detected Assessment & Plan Assessment & Plan narrative: Pyelonephritis / sepsis / recent orchitis - SOFA score = 2 on admission - Zosyn IV - IVFs, cautiously - wean pressor - PICC line this AM - will likely need prolonged IV antibiotic course after discharge, urology consultation HTN / CAD / HLD - off Coreg - ASA, Plavix, statin COPD / Smoking - albuterol, nicotine patch DVT prophylaxis - heparin GI prophylaxis - Pepcid Scores SOFA PaO2/FIO2: >=400 mmHg Platelets: >= 150 Bilirubin: < 1.2 mg/dL Hypotension: MAP < 70 mmHg [place] Coma Scale: 15 Renal: Creatinine 1.2-1.9 mg/dL SOFA Score: 2 Quality VTE Deep Vein Thrombosis/Pulmonary Embolism Present on Admission: Yes MIPS - Admit I confirm the patient?s Advance Care Plan is present, Code status is documented, Surrogate decision maker is in patient?s record [If Yes, STOP here]: Yes [facility] - Meds 'Current medications' to include all prescriptions, [id number] products, herbals, cannabis/cannabidiol products, and vitamin/mineral/dietary (nutritional) supplements. I have utilized all available resources to obtain, update, or review the patient?s current medications. [If Yes, STOP here]: Yes [employer] Document charge(s): No Charge Codes Initial inpatient/observation care: [id number]
[2024-09-11] MEDS: HEPARIN 5,000 UNIT/ML VIAL 5000 UNIT SUBCUT ×2 (09:00→21:00)
[2024-09-11] MEDS: CLOPIDOGREL 75 MG TABLET PO (09:00)
[2024-09-11] MEDS: FAMOTIDINE 20 MG/2 ML VIAL IV ×2 (09:00→21:00)
[2024-09-11] MEDS: ASPIRIN EC 81 MG TABLET PO (09:00)
[2024-09-11] MEDS: NICOTINE 21 MG PATCH TOP (09:01)
--- NOTE | 2024-09-11 10:08 | DI.RAD.S_ITS ---
PROCEDURE: XR CHEST 1V INDICATIONS: PICC line placement TECHNIQUE: One view of the chest was acquired. COMPARISON: [facility], CT, CT ABDOMEN PELVIS W CON, 09/11/2024, 0:49. [facility], CR, XR CHEST 1V, 09/11/2024, 0:13. [facility], CR, XR CHEST FOR PICC 1V, 08/03/2024, 15:46. [facility], CR, XR CHEST 1V, 07/30/2024, 23:17. [facility], CR, XR CHEST 1V, 07/30/2024, 8:38. FINDINGS: Surgical changes and devices: Right upper extremity central venous catheter distal tip overlying the superior vena cava. Lungs and pleura: Lungs are clear. No pleural effusions or pneumothorax. Mediastinum: Mediastinal contours appear normal. Heart size is normal. Bones and chest wall: Severe osseous demineralization, which limits assessment of fractures and fracture acuity. 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 Overlying soft tissues appear unremarkable. IMPRESSION: Right upper extremity central venous catheter distal tip overlying the superior vena cava. Dictated by: Alexander Phillip M.D. on 09/11/2024 at 9:54 Approved by: Alexander Phillip M.D. on 09/11/2024 at 9:56
[2024-09-11] MEDS: HYDROMORPHONE 0.5 MG INJ IV ×2 (13:50→21:01)
--- NOTE | 2024-09-11 15:25 | CM.DANOTE ---
Patient is a 79 yo male who was admitted INPT Status on 09/11/24 for recurrent Pyelonephritis/Sepsis. Pt has [employer] for insurance and his PCP is Tae Asencio in [place]. EMR was reviewed. Per MD, pt with hx of COPD, stents, smokes up to 2 packs a day and 2-3 beers daily and admitted for tx of IV-Abx and anticipates intermediate IV abx at d/c. Not yet appropriate for PT orders today. SW met bedside with pt and explained role and he confirms he lives in [place] alone but has very supportive friend Buster that visits him and provides transport to the store or shopping. Pt states he has cane, walker, w/c at home but mostly furniture surfs and is quite sedentary. Pt has not been driving as he had a suspended license and was then caught driving without his license. Friends have been providing transport if needed. Pt confirms that his Dtr Gia is his DPOA and lives down in [place] but has been staying at pt's house since his discharge in Jul 2024 last month to assist pt with his daily outpt IV abx infusions. Pt has a hx of [place] after GLF and hip fx in Jul 2022. Pt hopeful to d/c home when stable and avoid SNF if possible. Pt severely protein calorie malnourished at baseline. SW attempted to further determine if pt and Dtr feel outpt infusion clinic was manageable and if they would be agreeable with continuing this at d/c vs SNF. Pt somewhat confused and lethargic today and states SW would likely need to ask his Dtr when she is bedside later. Pt historically has wanted to avoid SNF if possible. Dtr currently not bedside. SW sent msg to Bonnie at [facility] to determine if pt completed his initial course of IV abx or still currently a patient and determine if they could continue if pt able to tolerate outpt infusion again. Pt was established with ID MD Dr. Pacheco as well. Plan: SW to follow closely for ongoing medical workup and PT eval to determine discharge planning needs of SNF vs outpt Infusion Clinic pending progress and needs. BRENDA Cavazos Discharge Planning/Care Management CM Discharge Assessment Start: 09/11/24 15:19 Freq: Status: Active Protocol: Document 09/11/24 15:19 BF (Rec: 09/11/24 15:24 BF [id number]) Discharge Planning Assessment Assigned Ekg Manager BRENDA Duckworth/Assigned Designee Name Jason Nielsen Contact Information [phone] Advance Directives? Yes Advance Directives on File No History Provided By Patient,Family Member,Medical Record Has Patient been admitted in last 30 No days? Comment last admit in Jul 2024 and went home with outpt infusion Prior Living Arrangements House Household Members none Comment Dtroldan Nielsen lives in [place] but has been staying with patient to assist during his IV abx course Type of transporation used prior to Drives own vehicle admit Comment Might have lost his license a couple months ago, Dtr has been driving Independent with ADL's Yes: somewhat Is patient alert and oriented? Yes: somewhat Needs Assistance With Meal Prep,Managing Medications ,Home Chores / Shopping Caregiver for Another No Community Services used prior to IV Therapy admission: DME Already Rented / Owned Cane Patient/Family Preference [facility] Facility Comment SNF vs outpt infusion pending IV abx needs Comment Patient's body is full of injuries and fractures from prior falls and most recent GLF. Patient lives alone. He would benefit from therapy evals when medically appropriate and likely will need SNF level of care and rehab if agreeable. Patient has been to [facility] approx two years ago after GLF and subsequent femur fx/ repair and really wants to avoid SNF Discharge Plan Home Community Services IV Therapy Transportation Arrangement Jason Nielsen if safe for home Additional Comment Hx at [facility] H+R Jun 2021 Whiteboard Updated in Patient Room with Yes name and ext. # of Ekg Manager Review Status In Process Please Provide Date Initial DC 09/11/24 Assessment Was Performed Next Review Type Continued Stay Review
[2024-09-11 15:52] LABS: Acinetobacter calcoa-baumannii Not Detected (Not Detect); Bacteroides fragilis Not Detected (Not Detect); CTX-M Resistance Detected (Not Detect); Candida albicans Not Detected (Not Detect); Candida auris Not Detected (Not Detect); Candida glabrata Not Detected (Not Detect); Candida krusei Not Detected (Not Detect); Candida parapsilosis Not Detected (Not Detect); Candida tropicalis Not Detected (Not Detect); Cryptococcus neoformans/gatti Not Detected (Not Detect); Enterobacter cloacae complex Not Detected (Not Detect); Enterobacterales Detected (Not Detect); Enterococcus faecalis Not Detected (Not Detect); Enterococcus faecium Not Detected (Not Detect); Haemophilus influenzae Not Detected (Not Detect); IMP Resistance Not Detected (Not Detect); KPC Resistance Not Detected (Not Detect); Klebsiella aerogenes Not Detected (Not Detect); Listeria monocytogenes Not Detected (Not Detect); NDM Resistance Not Detected (Not Detect); Neisseria meningitidis Not Detected (Not Detect); OXA-48-like Resistance Not Detected (Not Detect); Proteus species Not Detected (Not Detect); Pseudomonas aeruginosa Not Detected (Not Detect); Salmonella species Not Detected (Not Detect); Serratia marcescens Not Detected (Not Detect); Staphylococcus epidermidis Not Detected (Not Detect); Staphylococcus lugdunensis Not Detected (Not Detect); Staphylococcus species Not Detected (Not Detect); Stenotrophomonas maltophilia Not Detected (Not Detect); Streptococcus agalactiae (Gr B Not Detected (Not Detect); Streptococcus pneumonia Not Detected (Not Detect); Streptococcus pyogenes (Gr A) Not Detected (Not Detect); Streptococcus species Not Detected (Not Detect); VIM Resistance Not Detected (Not Detect); mcr-1 Resistance Not Detected (Not Detect)
[2024-09-11] MEDS: NOREPINEPHRINE BITARTRATE/D5W 4 MG/250 ML PLAST..BAG 8.175 MG IV (17:29)
[2024-09-11] MEDS: ATORVASTATIN 20 MG TABLET 80 MG PO (21:00)
[2024-09-12] VITALS (42 sets, daily range): BP systolic 86–145; BP diastolic 55–78; PULSE 63–116; RESP 22–55; TEMP 36.6–39; O2SAT 97
[2024-09-12] MEDS: PIPERACILLIN/TAZO 3.375 GM in SODIUM CHLORIDE 0.9% 100 ML IV (05:40)
[2024-09-12] MEDS: SODIUM CHLORIDE 0.9% 1,000 ML 150 ML IV ×3 (06:20→19:51)
--- NOTE | 2024-09-12 06:42 | PC.NURSE ---
General Clerk Note-Patient has been confused but cooperative, attempt to get OOB once but redirectible. Levophed titrated off by 0400. Total UOP 1475ml. Temp up/down 99.9-102.4 on Temp-[place]. Tylenol given.
[2024-09-12] MEDS: ACETAMINOPHEN 325 MG TABLET 650 MG PO ×2 (07:01→15:22)
--- NOTE | 2024-09-12 08:08 | P.PN_ITS ---
Subjective Subjective Interval history: Summary: 79 y/o chronically ill presents with rigors, fever, nausea and vomiting. He was recently hospitalized with UTI/pyelonephritis with ESBL E coli and orchitis. Was treated with IV antibiotics and improved in hospital and discharged. Today without abdominal or testicular pain. Has b/l flank pain. ED workup showing WBC of 32.9, Hb of 10, INR is 1.23 creatinine is 1.76 sodium is 137 potassium 4.8 chloride 109 CO2 is 18 with a BUN of 14 glucose is 133 lactate 1.5 LFTs WNR, procalcitonin is 0.85. POC urine positive for leukocyte esterase, no nitrates does not for blood positive for protein no ketones or glucose. Urine micro shows 10-30 white cells no red cells 1 squamous many bacteria was sent for culture. CT abdomen pelvis slight appearance decreased patchy enhancement with the kidneys could represent inflammation or inflammation such as pyelonephritis subcentimeter nonobstructing left renal calcification diverticulosis. Chest x-ray shows likely pulmonary edema. Covered with Zosyn and admitted to ICU on levophed. Hospital course: 09/11: He was started on IV Zosyn. He does have a history of ESBL and the MICU for Zosyn in his 8. He was treated with Ertapenem last time. 09/12: He was remained febrile overnight but did come off from norepinephrine at 4:00 a.m.. Switch to ertapenem. S: He is eating breakfast, in the bed. He states he feels comfortable. He was mild tenderness to the testicle but denies flank pain. No nausea, chest pain, or shortness a breath. Exam Vital Signs (past 8 hours): - 09/12/24 00:15 09/12/24 00:30 09/12/24 00:30 Temperature 100.2 F H Pulse Rate 86 Respiratory Rate 25 H Blood Pressure 100/57 L Oxygen Delivery Method Room Air 09/12/24 01:00 09/12/24 01:00 09/12/24 01:30 Temperature 100.0 F H 99.9 F H Pulse Rate 88 86 Respiratory Rate 22 23 Blood Pressure 119/66 Oxygen Delivery Method 09/12/24 01:30 09/12/24 02:00 09/12/24 02:00 Temperature 100.0 F H Pulse Rate 88 Respiratory Rate 24 Blood Pressure 122/59 L 107/57 L Oxygen Delivery Method 09/12/24 02:30 09/12/24 02:30 09/12/24 03:00 Temperature 100.2 F H 100.2 F H Pulse Rate 85 93 H Respiratory Rate 26 H 25 H Blood Pressure 116/59 L Oxygen Delivery Method 09/12/24 03:00 09/12/24 03:30 09/12/24 03:30 Temperature 100.2 F H Pulse Rate 88 Respiratory Rate 24 Blood Pressure 106/60 117/58 L Oxygen Delivery Method 09/12/24 04:00 09/12/24 04:00 09/12/24 04:15 Temperature 100.6 F H Pulse Rate 84 Respiratory Rate 26 H Blood Pressure 122/65 Oxygen Delivery Method Room Air 09/12/24 04:30 09/12/24 04:30 09/12/24 05:00 Temperature 100.9 F H 101.3 F H Pulse Rate 92 H 116 H Respiratory Rate 29 H 55 H Blood Pressure 110/63 Oxygen Delivery Method 09/12/24 05:00 09/12/24 05:30 09/12/24 05:30 Temperature 101.7 F H Pulse Rate 89 Respiratory Rate 26 H Blood Pressure 115/78 117/65 Oxygen Delivery Method 09/12/24 06:00 09/12/24 06:00 09/12/24 07:01 Temperature 101.8 F H 102.2 F H Pulse Rate 102 H Respiratory Rate 36 H Blood Pressure 119/60 Oxygen Delivery Method Oxygen Delivery Method Room Air Oxygen Flow Rate 0 Narrative Exam Narrative: NAD, alert and oriented. Fluent speech. Lungs are clear, normal rate and effort. Heart is regular, no murmur gallop or rub. Abdomen is soft, non distended. Extremities are free of edema. Objective ECG Impression: Sinus tachycardia with premature atrial complexes with aberrant conduction Indeterminate axis Pulmonary disease pattern Right bundle branch block Imaging Multiple studies:: Radiologist's impression: Chest x-ray: Radiologist's impression: Surgical changes and devices: None. Lungs and pleura: Interstitial. No pleural effusions or pneumothorax. Mediastinum: Mediastinal contours appear normal. Heart size is . Bones and chest wall: No suspicious bony lesions. Overlying soft tissues appear unremarkable. IMPRESSION: Acute consolidations. 09/11 Reviewed with radiologist on-duty who states no infiltrates or consolidations are present and will dictate an addendum to that effect. CT scan - abdomen: Radiologist's impression: Slight appearance decreased patchy enhancement within the kidneys which could represent infection or inflammation such as pyelonephritis. Subcentimeter nonobstructing left renal calcification. Diverticulosis. Labs 09/11/24 00:26 09/11/24 00:41 Labs: Laboratory Results - last 24 hr 09/11/24 00:41 A.calcoaceticus-baumannii cmplx PCR Not detected Bacteroides fragilis Not detected Juliana albicans (PCR) Not detected Juliana auris (PCR) Not detected C. glabrata (PCR) Not detected C. krusei (PCR) Not detected C. parapsilosis (PCR) Not detected C. tropicalis (PCR) Not detected C. neoform/gattii (PCR) Not detected Enterobacterales (PCR) Detected E. cloacae complex PCR Not detected Enterococc faecalis PCR Not detected Enterococc faecium PCR Not detected E. coli (PCR) Detected H. influenzae (PCR) Not detected Klebsiella aerogenes (PCR) Not detected Klebsiella oxytoca PCR Not detected Klebsiella pneumoniae Not detected List. monocytogenes PCR Not detected N. meningitidis (PCR) Not detected Proteus species (PCR) Not detected Salmonella spp. (PCR) Not detected Serratia marcescens PCR Not detected Staphylococcus sp PCR Not detected Staph aureus (PCR) Not detected mecA/C & MREJ Resist Gene Not applicable mecA/C-Methicil Resis Gene Not applicable mcr-1 Colistin Res Gene PCR Not detected Staph epidermidis (PCR) Not detected Staph lugdunensis PCR Not detected S. maltophilia (PCR) Not detected Streptococcus sp PCR Not detected Group A Strep (PCR) Not detected Strep agalactiae (PCR) Not detected Strep pneumoniae (PCR) Not detected P. aeruginosa (PCR) Not detected Rebeca/B-Vanco Res Genes Not applicable blaIMP Car res Gene PCR Not detected KPC-Carbap Res Gene PCR Not detected blaNDM Car Res Gene PCR Not detected OXA-48 Carbapenem Resis Gene (PCR) Not detected blaVIM Car Res Gene PCR Not detected CTX-M Gene Resistance (PCR) Detected PFSH Medical History Claudication of both lower extremities COPD (chronic obstructive pulmonary disease) Hyperlipidemia CAD (coronary artery disease) HTN (hypertension) Surgical History History of heart artery stent Social History household members: none Smoking Status: Current every day smoker alcohol intake: current Assessment & Plan Assessment & Plan narrative: 1. Sepsis with septic shock secondary to Orchitis and pyelonephritis with ESBL bacteremia, present on admission and improved. 2. Orchitis, present on admission and improved. 3. Severe protein caloric malnutrition with wasting, present on admission and active. 4. Tobacco dependence, present on admission and active. 5. Possible alcohol abuse, present on admission and active. 6. Chronic hypertension, present on admission and active. 7. Hypomagnesemia, present on admission and improved. 8. Acute hypoxic respiratory failure, resolved. 9. Recent Norovirus, not active. PLAN: -switch to ertapenem 1st dose this morning. -continue IV fluids, norepinephrine is off. -monitor cultures. Scores SOFA PaO2/FIO2: >=400 mmHg Platelets: >= 150 Bilirubin: < 1.2 mg/dL Hypotension: MAP < 70 mmHg [place] Coma Scale: 15 Renal: Creatinine 1.2-1.9 mg/dL SOFA Score: 2 Time-Based Coding :: [TOTAL MINUTES] spent with patient and on the chart (including review of chart, obtaining history, exam, reviewing outside data, placing orders, documenting exam and treatment plan, and counseling patient) on [DATE]. Quality VTE Deep Vein Thrombosis/Pulmonary Embolism Present on Admission: Yes
[2024-09-12 09:14] LABS: Hematocrit 23.3 % (41-53); Hemoglobin 7.7 g/dL (13.5-17.5); Mean Corpuscular HGB Conc 33.3 % (30-36); Mean Corpuscular Hemoglobin 32.4 PG (26-34); Mean Corpuscular Volume 97.2 fL (80-100); Platelet Count 200 X10^3/uL (150-400); Red Blood Cell Count 2.39 X10^6/uL (4.5-5.9); Red Cell Distribution Width 22.4 % (11.6-14.8); White Blood Cell Count 11.9 X10^3/uL (4.5-11.0)
[2024-09-12 09:26] LABS: Alanine Aminotransferase 17 IU/L (<50); Albumin 2.5 g/dL (3.5-5.0); Alkaline Phosphatase 56 U/L (38-126); Aspartate Aminotransferase 24 IU/L (17-59); Bilirubin Total 0.6 mg/dL (0.2-1.3); Blood Urea Nitrogen 16 mg/dL (9-20); Calcium 7.2 mg/dL (8.4-10.2); Carbon Dioxide 15 mmol/L (22-32); Chloride 113 mmol/L (98-107); Estimated Glomerular Filt Rate > 60 mL/min (>60); Globulin 2.6 g/dL (1.7-4.1); Glucose 173 mg/dL (80-110); HEMOLYSIS < 15 (0-50); Lactate (Lactic Acid) 1.8 mmol/L (0.7-2.1); Potassium 3.3 mmol/L (3.4-5.1); Sodium 138 mmol/L (137-145); Total Protein 5.1 g/dL (6.3-8.2)
[2024-09-12] MEDS: ERTAPENEM 1 GM in SODIUM CHLORIDE 0.9% 100 ML IV (09:34)
[2024-09-12] MEDS: ASPIRIN EC 81 MG TABLET PO (09:34)
[2024-09-12] MEDS: FAMOTIDINE 20 MG/2 ML VIAL IV (09:34)
[2024-09-12] MEDS: CLOPIDOGREL 75 MG TABLET PO (09:34)
[2024-09-12] MEDS: HEPARIN 5,000 UNIT/ML VIAL 5000 UNIT SUBCUT ×2 (09:34→21:28)
[2024-09-12] MEDS: NICOTINE 21 MG PATCH TOP (09:35)
--- NOTE | 2024-09-12 11:24 | PT-IP ANOTE ---
PT order received. Hgb dropped from 10 yesterday to 7.7 today. Will hold PT today.
--- NOTE | 2024-09-12 11:38 | CM.DPC ---
DCP Outpt IV Infusion Cont: Per , pt's IV switched to Ertapenem Q24 for 14 days total and pt improved today without fever and more alert and oriented. PT/OT ordered and pending. Bonnie at [facility] confirms that pt completed his prior IV abx course with them and was closed out. SW met bedside with pt and Dtr and explained role and pt confirms he was confused and did not even remember his Dtr being bedside yesterday Sun but pt much more alert and oriented today and no fever. Pt and Dtr confirm that they were able to manage getting to [facility] daily for his last 2 week course without any barriers and they felt it was manageable. Pt confirms he does not want SNF and pt recently just passed his driving written and drive test and currently now has his drivers license as well. Pt and Dtr confirm that their preference is outpt [facility] again for the new course of Ertapenem and pt previously met with Dr. Tara SOTELO MD at [facility] and was referred to Urologist on [facility] and pt has his first appointment there this week on 09/15/24. No other appointments had been needed with Dr. Pacheco. Unclear if Dr. Pacheco will need to follow again at d/c for this new Ertapenem course. completed the Physician Order Form for [facility] and SARITHA faxed to Bonnie at [facility] and she will follow for setting up pt's first appointment time after discharge. BRENDA Cavazos
[2024-09-12] MEDS: POTASSIUM CHLORIDE 20 MEQ TAB 40 MEQ PO (12:26)
--- NOTE | 2024-09-12 13:42 | OT.IPNOTE ---
Ot eval and treat order received and chart reviewed. Pt with H&H drop from 09/11 10.0 and 30.0 to 09/12 7.7 and 23.3. Discussed with nursing, who states that patient is not showing any signs of distress and discussed with CM who states that therapy eval tomorrow would be fine. Will hold today for redraw of H&H.
--- NOTE | 2024-09-12 16:15 | DIET.CONS ---
Dietary Consultation Note Admission Date: 09/11/2024 03:41 Assessment: 79 y M admitted for sepsis. Dietitian screened for low MNA. Met with pt at bedside. Reports ongoing low appetite, skipping 1-2 days of eating some days d/t lack of appetite and taste, and other days only having 1 meal. Reports overall 20 lb weight loss in past 6 months with no weight regain. Difficulty tasting food. No teeth, needs soft and bite sized. Had GI upset with Ensure/Boost vanilla/chocolate products in past. Nutrition focused physical exam: -Moderate muscle mass loss temples, severe muscle mass loss deltoid, pectoralis major, trapezius -Moderate to severe subcutaneous fat loss (buccal and orbital fat pads) Results unchanged from admission in Jul 2024 Ht: 172.72 cm Wt: 55.5 kg BMI: 18.6 UBW: 65 kg per pt 6 months ago (-15% loss in 6 months, severe) Last BM: 09/11/24 (09/11/24 04:09) MNA: 7 Liborio Score: 14 Diet: 09/11/24 Breakfast Heart Healthy Diet Diet Modifications: Sodium Level: 2 gm Sodium Food Texture: Level 7 - Regular Liquid Consistency: Level 0 - Thin Labs: RBC 2.39 X10^6/uL (4.5-5.9) L 09/12/24 08:55 Hgb 7.7 g/dL (13.5-17.5) L 09/12/24 08:55 Hct 23.3 % (41-53) L 09/12/24 08:55 Creatinine 0.94 mg/dL (0.66-1.25) 09/12/24 08:55 Lactate 1.8 mmol/L (0.7-2.1) 09/12/24 08:55 Nutrition Diagnosis: Severe chronic Protein Calorie Malnutrition r/t inadequate oral intake as evidenced by <50% of estimated energy intake >6 months per diet recall, moderate muscle mass loss temples, severe muscle mass loss deltoid, pectoralis major, trapezius, moderate to severe subcutaneous fat loss (buccal and orbital fat pads), 15% weight loss within 6 months, severe, BMI underweight for age (18.6). Interventions: -Soft and bite sized foods, coordinated with kitchen -Not open to regular Ensure, open to clear Ensures, TID -Discussed energy dense-protein dense food options available if d/c home and easy tolerated foods to have despite no appetite (i.e pb sandwiches, Ensure clear, ready prepared soft meat sandwiches) EER: 1950 kcals (35 kcals/kg per BMI) 85 g protein (1.5 g/kg per PCM) Monitoring/Evaluations: po intakes, ONS tolerance Electronically Signed by: Roxane Reyna 09/12/24 16:15 Clinical Dietitian [address] [id number]
--- NOTE | 2024-09-12 19:22 | PC.NURSE ---
Pt remained off levophed throughout shift with stable BPs, downgraded from ICU status. Pt fever responding to oral tylenol. Pt alert, calm, cooperative throughout shift. Pt's daughter visited bedside, updated.
[2024-09-12] MEDS: ATORVASTATIN 20 MG TABLET 80 MG PO (21:29)
[2024-09-12] MEDS: HYDROMORPHONE 0.5 MG INJ IV (23:26)
[2024-09-13] VITALS (41 sets, daily range): BP systolic 132–168; BP diastolic 67–88; PULSE 66–134; RESP 20–50; TEMP 37.2–38.5; O2SAT 95–100
[2024-09-13] MEDS: SODIUM CHLORIDE 0.9% 1,000 ML 150 ML IV ×3 (05:04→22:08)
[2024-09-13 05:53] LABS: BUN Creatinine Ratio 13.3 (6-22); Blood Urea Nitrogen 11 mg/dL (9-20); Calcium 7.3 mg/dL (8.4-10.2); Carbon Dioxide 18 mmol/L (22-32); Chloride 117 mmol/L (98-107); Estimated Glomerular Filt Rate > 60 mL/min (>60); Glucose 101 mg/dL (80-110); HEMOLYSIS < 15 (0-50); Potassium 3.8 mmol/L (3.4-5.1); Sodium 140 mmol/L (137-145)
--- NOTE | 2024-09-13 08:07 | PM.PN.1 ---
Subjective Subjective Interval history: S: He is feeling better. Low-grade fever, no cough or shortness a breath down. No abdominal pain or dysuria. Hospital course: 09/11: He was started on IV Zosyn. He does have a history of ESBL and the MICU for Zosyn in his 8. He was treated with Ertapenem last time. 09/12: He was remained febrile overnight but did come off from norepinephrine at 4:00 a.m.. Switch to ertapenem. 09/13: Fevers improving, white blood cell count is improving. He was a right arm PICC in place. Repeat blood cultures drawn and pending. Exam Vital Signs (past 8 hours): - 09/13/24 04:00 Temperature 100.0 F H Pulse Rate 99 H Respiratory Rate 25 H Blood Pressure 153/78 H Pulse Oximetry 97 Oxygen Flow Rate 0 Oxygen Delivery Method Room Air Oxygen Flow Rate 0 Narrative Exam Narrative: NAD, alert and oriented. Fluent speech. Lungs are clear, normal rate and effort. Heart is regular, no murmur gallop or rub. Abdomen is soft, non distended. Extremities are free of edema. Right arm PICC. Objective Labs 09/12/24 08:55 09/13/24 05:00 Labs: Laboratory Results - last 24 hr 09/12/24 09/13/24 08:55 05:00 WBC 11.9 H D RBC 2.39 L Hgb 7.7 L Hct 23.3 L MCV 97.2 MCH 32.4 MCHC 33.3 RDW 22.4 H Plt Count 200 Sodium 138 140 Potassium 3.3 L D 3.8 Chloride 113 H 117 H Carbon Dioxide 15 L 18 L BUN 16 11 Creatinine 0.94 0.83 Estimated GFR > 60 > 60 BUN/Creatinine Ratio 17.0 13.3 Glucose 173 H 101 Lactate 1.8 Calcium 7.2 L 7.3 L Total Bilirubin 0.6 AST 24 ALT 17 Alkaline Phosphatase 56 Total Protein 5.1 L Albumin 2.5 L Globulin 2.6 Albumin/Globulin Ratio 1.0 PFSH Medical History Claudication of both lower extremities COPD (chronic obstructive pulmonary disease) Hyperlipidemia CAD (coronary artery disease) HTN (hypertension) Surgical History History of heart artery stent Social History household members: none Smoking Status: Current every day smoker alcohol intake: current Assessment & Plan Assessment & Plan narrative: 1. Sepsis with septic shock secondary to Orchitis and pyelonephritis with ESBL bacteremia, present on admission and improved. 2. Orchitis, present on admission and improved. 3. Severe protein caloric malnutrition with wasting, present on admission and active. 4. Tobacco dependence, present on admission and active. 5. Possible alcohol abuse, present on admission and active. 6. Chronic hypertension, present on admission and active. 7. Hypomagnesemia, present on admission and improved. 8. Acute hypoxic respiratory failure, resolved. 9. Recent Norovirus, not active. PLAN: -Continue ertapenem, 1st dose 09/12. -continue IV fluids, norepinephrine is off. -monitor cultures. Repeat second set of cultures. Sent 09/13. -has a right arm PICC. -we will begin authorization for outpatient IV antibiotics, anticipate ertapenem for least 14 days. Anticipate discharge on September 14. We will also discuss with Dr. Pacheco of Infectious Disease, the patient has been seen by her in the past. ZI: 09/14. Time-Based Coding :: [TOTAL MINUTES] spent with patient and on the chart (including review of chart, obtaining history, exam, reviewing outside data, placing orders, documenting exam and treatment plan, and counseling patient) on [DATE]. Quality VTE Deep Vein Thrombosis/Pulmonary Embolism Present on Admission: Yes
[2024-09-13] MEDS: CLOPIDOGREL 75 MG TABLET PO (08:49)
[2024-09-13] MEDS: ERTAPENEM 1 GM in SODIUM CHLORIDE 0.9% 100 ML IV (08:49)
[2024-09-13] MEDS: ASPIRIN EC 81 MG TABLET PO (08:49)
[2024-09-13] MEDS: HEPARIN 5,000 UNIT/ML VIAL 5000 UNIT SUBCUT ×2 (08:52→21:03)
[2024-09-13] MEDS: FAMOTIDINE 20 MG/2 ML VIAL IV (08:52)
[2024-09-13] MEDS: NICOTINE 21 MG PATCH TOP (08:52)
--- NOTE | 2024-09-13 11:21 | PT.IIE ---
Current Diagnoses Sepsis, unspecified organism (09/11/24) Tubulo-interstitial nephritis, not specified as acute or chronic (09/11/24) Acute kidney failure, unspecified (09/11/24) Surgical History (Last Reviewed 09/12/24 @ 08:10 by Elliott Rosa MD) History of heart artery stent Medical History (Last Reviewed 09/12/24 @ 08:10 by Elliott Rosa MD) CAD (coronary artery disease) Claudication of both lower extremities COPD (chronic obstructive pulmonary disease) HTN (hypertension) Hyperlipidemia Physical Therapy Inpatient Evaluation/Re-Eval M1 PT/OT-IP Prior Functional Status Start: 09/12/24 13:31 Freq: NEEDED Status: Active Protocol: Document 09/13/24 11:21 DLM (Rec: 09/13/24 11:51 DLM [id number]) Medical Review Prior Functional Status Medical History Reviewed Yes Diet/Fluid Consistency Regular Communication WFL Mobility and Gait prefers to furniture surf, has a 4WW to use as needed Activities of Daily Living and IADL's Independent, has poor appetite , he report hx of diarrhea Prior Functional Level (Other details) daily smoker Social History Household Members none Living Arrangements House Number of Floors (Floors) One Floor Number of Stairs To Enter/Railing? ramp, 5 steps with bilateral rails Home Environment High Toilet,Walk in Shower,Tub /Shower Home Equipment Four Wheel Walker,Straight Cane,Manual Wheelchair,Shower Seat without Backrest Employment Status Retired Additional Social History Comment tri-pod cane His Daughter has been staying with him and drives him to get daily infusions (antibiotics) He has a hx of SNF rehab. He does not want to go back to SNF. 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 Patient Goals Discharge home Therapy Pain Assessment Pain When Pain Assessed During Mobility Pain Present Pain Present Denied Pain M4 PT-IP Mobility and Gait Start: 09/12/24 13:31 Freq: NEEDED Status: Active Protocol: Document 09/13/24 11:21 DL (Rec: 09/13/24 11:51 [facility] [id number]) PT-Transfer Assessment Sit to and From Stand Sit to and from Stand Contact Guard Assistance,Use of Upper Extremities Equipment Transfer Assistive Device Gait Belt,Front Wheeled Walker Transfers Transfer Destination Chair Transfer Technique Stand Step Pivot Transfer Ability Level of Assist Standby Assistance,Use of Upper Extremities Comments Mobility Comments Pt is up in the recliner and plans to stay up for now. He is slow with sit to stand with bilateral UE support but able to complete it with increased effort. Pt needs extra assist for quarter folder, méndez catheter and IV this visit. Gait Assessment Gait Gait Assistance Required: Standby Assistance,Contact Guard Assist Distance (Feet) 20 Assistive Devices Assistive Device Gait Belt,Front Wheeled Walker Gait Deviations General Gait Pattern Decreased Stride Length, Decreased Feet Clearance Factors Limiting Gait Function Factors Limiting Gait Function Decreased Activity Tolerance, Poor Balance Comments Gait Comments Pt limited somewhat by lines this visit. He is agreeable to using the FWW at this time. He describes general fatigue with gait. Stair Climbing Assessment Comments Stair Climbing Comments ramp to enter house PT-Balance Assessment Sitting Balance and Reactions Static Sitting Balance Ability Normal Dynamic Sitting Balance Ability Good Standing Balance and Reactions Static Standing Balance Ability Good Dynamic Standing Balance Ability Fair Device Used FWW M5 PT-IP Objective Assessments Start: 09/12/24 13:31 Freq: NEEDED Status: Active Protocol: Document 09/13/24 11:21 DL (Rec: 09/13/24 11:51 [facility] [id number]) Orientation Orientation/Cognition Level of Alertness Alert Orientation Name,Age,Birthday,Month,Date, Year,Day of Week,Place, Situation Language Function Ability Hard of Hearing Safety Awareness Understands Safety Issues Memory Description No Deficits Noted Comments his hearing is functional for conversation, he is talkative and likes to tell stories from his past Gross Range of Motion Upper Extremity ROM Assessment Within Functional Limits Lower Extremity ROM Assessment Within Functional Limits Strength Upper Extremity Strength Assessment Within Functional Limits Lower Extremity Strength Assessment Bilaterally Impaired Hip flex 4/5 Knee ext 5/5, flex 4/5 Ankle DF 4+/5 Comments Strength Comments LE's are tender to pressure during manual muscle testing Coordination Assessment Gross Coordination Gross Coordination Impaired Assessment Coordination Comments mild decreased UE and LE coordination with mild tremor Sensation Assessment Sensation Gross Sensation Right LE Impaired,Left LE Impaired Sensation Description Hyperesthesia Comments Sensation Comments distal LE's are tender to touch with hx of LE claudication on chart, noted his skin is dry and without hair growth Muscle Tone Muscle Tone WNL Yes M6 PT-IP Treatment Start: 09/12/24 13:31 Freq: NEEDED Status: Active Protocol: Document 09/13/24 11:21 DLM (Rec: 09/13/24 11:51 DLM [id number]) Physical Therapy Treatment Education Education Provided Safety M7 PT-IP Assessment and Plan Start: 09/12/24 13:31 Freq: NEEDED Status: Active Protocol: Document 09/13/24 11:21 DLM (Rec: 09/13/24 11:51 DLM [id number]) PT Summary Assessment and Plan Potential Rehabilitation Potential Good Status of Condition at Evaluation Evolving Summary Impairments Strength,Balance,Bed Mobility, Transfers,Gait,Activity Tolerance Assessment Summary Yazan is alert and sitting up in the recliner this visit. He reports a generalized decrease in activity tolerance . Chart review shows low H&H. He is also septic with pyelonephritis. He was receiving daily IV antibiotics at the infusion center before this admission. He is able to ambulate in his room with the FWW and CG/SBA plus assist for his lines. He is cooperative and pleasant with treatment. His decreased activity tolerance appears related to his anemia and infection process. His Daughter has been staying with him at his house and giving him rides to the infusion center. Recommend discharge home with ongoing support from his Daughter. He is a good candidate for home health Physical Therapy but is anticipate it will need to start after he has completed his daily trips to the infusion center for IV antibiotics. Goals Bed Mobility Goal Independent Transfer Goal Standby Assistance,Front Wheeled Walker Gait Goal Standby Assistance,Front Wheel Walker Gait Distance 150 feet Days to Meet Goals 5 Frequency of Treatment Frequency Of Treatment Once a Day Treatment Plan Physical Therapy Treatment Plan Bed Mobility Training,Transfer Training,Gait Training, Therapeutic Exercise,Balance Retraining,Neuromuscular Re-ed Precautions Other Precautions fall risk Recommendations To Nursing Amount of Assist Needed 1 Person Assist Discharge Recommendations PT Discharge Recommendations Home with Assistance,Home Health Other Discharge Recommendations His Daughter has been staying with him and driving him to daily infusion center appts Transportation Needs at Discharge Private Vehicle - PT assist 1P
--- NOTE | 2024-09-13 11:38 | OT.IP.EVAL ---
Current Diagnoses Sepsis, unspecified organism (09/11/24) Tubulo-interstitial nephritis, not specified as acute or chronic (09/11/24) Acute kidney failure, unspecified (09/11/24) Past Medical History (Last Reviewed 09/12/24 @ 08:10 by Elliott Rosa MD) CAD (coronary artery disease) Claudication of both lower extremities COPD (chronic obstructive pulmonary disease) HTN (hypertension) Hyperlipidemia Surgical History (Last Reviewed 09/12/24 @ 08:10 by Elliott Rosa MD) History of heart artery stent Occupational Therapy Inpatient Evaluation/Re-Eval M1 PT/OT-IP Prior Functional Status Start: 09/12/24 13:31 Freq: NEEDED Status: Active Protocol: Document 09/13/24 11:38 [facility] (Rec: 09/13/24 12:26 [facility] [id number]) Medical Review Prior Functional Status Medical History Reviewed Yes Diet/Fluid Consistency Regular Communication WFL Mobility and Gait prefers to furniture surf, has a 4WW to use as needed Activities of Daily Living and IADL's Independent, has poor appetite , he report hx of diarrhea Prior Functional Level (Other details) daily smoker Social History Household Members none Living Arrangements House Number of Floors (Floors) One Floor Number of Stairs To Enter/Railing? ramp, 5 steps with bilateral rails Home Environment High Toilet,Walk in Shower,Tub /Shower Home Equipment Four Wheel Walker,Straight Cane,Manual Wheelchair,Shower Seat without Backrest Employment Status Retired Additional Social History Comment tri-pod cane His Daughter has been staying with him and drives him to get daily infusions (antibiotics) He has a hx of SNF rehab. He does not want to go back to SNF. M2 OT-IP Current Condition Start: 09/13/24 12:07 Freq: Status: Active Protocol: Document 09/13/24 11:38 [facility] (Rec: 09/13/24 12:26 [facility] [id number]) Occupational Therapy Current Condition Current Condition Evaluation Date 09/13/24 Treatment Diagnosis Sepsis, severe malnutrition Diagnosis Onset Date 09/11/24 M3 OT- IP Subjective and Pain Start: 09/13/24 12:07 Freq: Status: Active Protocol: Document 09/13/24 11:38 [facility] (Rec: 09/13/24 12:26 [facility] [id number]) OT- Subjective Occupational Therapy Visit Type Type Initial Evaluation Visit Start Time 11:38 Visit Stop Time 12:05 Occupational Therapy Visit Comments Patient Comments Pt agreed to get up. Patient/Caregiver Goals To go home. OT Pain Assessment Pain When Pain Assessed At Rest Pain Present Pain Present Denied Pain M4 OT- IP ADL's Start: 09/13/24 12:07 Freq: Status: Active Protocol: Document 09/13/24 11:38 [facility] (Rec: 09/13/24 12:26 [facility] [id number]) OT [id number] Comments OT Self-Feeding Comments Not at meal time. OT ADL-Grooming General Evaluation Grooming Ability Standby Assistance Comments OT Grooming Comments Pt needing encouragement to rinse his mouth out at least and wash his face. Pt not wanting to comb his hair. OT ADL-Oral Care General Eval Oral Care Ability Standby Assistance Comments Oral Care Comments Pt states has no teeth , but agreed to rinse his mouth with mouthwash after encouragement . OT ADL-Dressing General Eval Lower Body Dressing Ability Standby Assistance Comments OT Dressing Comments VC to make sure the heel on his slipper was on all the way for his right foot. OT ADL-Toileting General Evaluation Toileting Ability Total Assistance Comments OT Toileting Comments Hyde in place. Suggested pt get a bidet as been having frequent diarrhea at home or at least wipes. OT ADL-Bathing Comments OT Bathing Comments Pt states usually sponge baths unless his daughter present and then gets into the shower. M5 OT- IP IADL's Start: 09/13/24 12:07 Freq: Status: Active Protocol: Document 09/13/24 11:38 [facility] (Rec: 09/13/24 12:26 [facility] [id number]) OT-Instrumental Activities of Daily Living Home Safety Awareness Awareness of Need for Assistance at Home Good Awareness Ability to Problem Solve Emergency Able to Problem Solve Situations Home Safety Comments Increased time for safety questions. Medication Management Medication Management Comments Pt states does his own. Money Management Money Management Comments Pt states does his own. Meal Preparation Meal Preparation Comments Pt states able to cook on his own but can stand for 5 minutes at a time. Suggested to have a chair/stool close by to sit on if needed. First Aid Nurse First Aid Nurse Comments Pt's daughter has bee coming to assist. Driving Driving Comments Pt states just got his license reinstated. Pt aware may not been driving just yet until feeling better. M6 OT- IP Functional Cognition Start: 09/13/24 12:07 Freq: Status: Active Protocol: Document 09/13/24 11:38 [facility] (Rec: 09/13/24 12:26 [facility] [id number]) Cognitive Factors Limiting Selfcare Function Cognitive Ability Level of Alertness Alert Patient Orientation Name,Age,Birthday,Place, Situation Attention Span Ability Capable of Focused Attention, Capable of Sustained Attention Ability to Follow Commands Able to Follow One Step Commands Cognitive Comments Cognitive Assessment Comments Pt able to follow commands for ADL and mobility needs. Pt a bit hard of hearing and increased tie to answer questions at time. Pt may benefit from SLUMS. M7 OT- IP Mobility and Balance Start: 09/13/24 12:07 Freq: Status: Active Protocol: Document 09/13/24 11:38 [facility] (Rec: 09/13/24 12:26 [facility] [id number]) OT-Transfer Assessment Sit to and From Stand Sit to and from Stand Standby Assistance,Contact Guard Assistance Transfers Transfer Ability Standby Assistance Technique Transfer Destination Chair Transfer Technique Stand Step Pivot Devices Transfer Assistive Devices Gait Belt,Front Wheeled Walker Comments Mobility Comments CGA to close SBA due to all on pt's lines and IV pole. Pt able to use the FWW to get to the sink and back. OT- Balance Assessment Sitting Balance and Reactions Static Sitting Balance Ability Normal Dynamic Sitting Balance Ability Good Standing Balance and Reactions Static Standing Balance Ability Good Dynamic Standing Balance Ability Fair M8 OT- IP Objective Assessments Start: 09/13/24 12:07 Freq: Status: Active Protocol: Document 09/13/24 11:38 [facility] (Rec: 09/13/24 12:26 [facility] [id number]) OT Gross Range of Motion Upper Extremity Range of Motion Assessment Within Functional Limits OT Strength Upper Extremity Strength Assessment Within Functional Limits OT- Coordination Assessment Upper Extremity Finger to Nose Test Left UE Impaired Comments Coordination Comments Left hand slightly off. M9 OT- IP Assessment and Plan Start: 09/13/24 12:07 Freq: Status: Active Protocol: Document 09/13/24 11:38 [facility] (Rec: 09/13/24 12:26 [facility] [id number]) OT Summary Assessment and Plan Potential Rehabilitation Potential Good Analytic Complexity at Evaluation Moderate Summary OT Impairments Balance,Functional Mobility, Dressing,Toileting,Bathing, Toilet Transfers,Shower Transfers,Activity Tolerance Progress Towards Goals Progressing Toward Goals Assessment Summary Pt MOD complexity and here due to sepsis, and main barriers are decreased activity tolerance and steps. Pt's daughter come to assist him often from [place] but does not stay with him. Pt to go home with assist when medically stable. Goals Self-Feeding Goal Independent Grooming Goal Independent Dressing Goal Independent Toileting Goal Independent Bathing Goal Standby Assistance Toilet Transfer Goal Independent Shower Transfer Goal Independent Days to Meet Goals 5 Frequency of Treatment Other frequency 5x/week Treatment Plan Other Treatment Recommendations and Next Shower Treatment Focus Discharge Recommendations OT Discharge Recommendations Home with Assistance Transportation Needs at Discharge Private Vehicle
[2024-09-13] MEDS: ATORVASTATIN 20 MG TABLET 80 MG PO (21:04)
[2024-09-13] MEDS: HYDROMORPHONE 0.5 MG INJ IV (21:12)
[2024-09-14] VITALS (28 sets, daily range): BP systolic 132–157; BP diastolic 67–77; PULSE 65–107; RESP 21–42; TEMP 36.4–37.9; O2SAT 97–98
[2024-09-14 06:17] LABS: BUN Creatinine Ratio 14.1 (6-22); Blood Urea Nitrogen 10 mg/dL (9-20); Calcium 7.5 mg/dL (8.4-10.2); Carbon Dioxide 18 mmol/L (22-32); Chloride 113 mmol/L (98-107); Estimated Glomerular Filt Rate > 60 mL/min (>60); Glucose 111 mg/dL (80-110); HEMOLYSIS < 15 (0-50); Potassium 3.6 mmol/L (3.4-5.1); Sodium 139 mmol/L (137-145)
[2024-09-14 06:19] LABS: Magnesium 0.4 mg/dL (1.6-2.3)
--- NOTE | 2024-09-14 06:48 | PC.NURSE ---
Dressage Instructor Note-Patient has been A/Ox3, weak, uses call light appropriately. Into BR with walker, loose stools. HR 140s while ambulating. Patient did start having frequent PVCs and few run 3-6 second VT (asymptomatic) around midnight. Hospitalist informed about rhythm and no ordered am labs. BMP and Mg+ drawn. Mg+ critical at 0.4, Dr. Brumfield informed, orders received to redraw peripherally instead of via Picc.
[2024-09-14 06:58] LABS: Magnesium 0.4 mg/dL (1.6-2.3)
[2024-09-14] MEDS: MAGNESIUM SULFATE 4 GM/100 ML PIGGYBACK IV (07:42)
[2024-09-14] MEDS: ASPIRIN EC 81 MG TABLET PO (09:44)
[2024-09-14] MEDS: CLOPIDOGREL 75 MG TABLET PO (09:45)
[2024-09-14] MEDS: ERTAPENEM 1 GM in SODIUM CHLORIDE 0.9% 100 ML IV (09:45)
[2024-09-14] MEDS: FAMOTIDINE 20 MG/2 ML VIAL IV (09:46)
[2024-09-14] MEDS: HEPARIN 5,000 UNIT/ML VIAL 5000 UNIT SUBCUT (09:46)
--- NOTE | 2024-09-14 11:06 | CM.DPC ---
DCP Cont. Reviewed EMR and team rounds for pt's status and updates. Pt has been medically cleared for home d/c, he will receive his infusion tomorrow at the Infusion [facility], then Thu/Thu/Thu will be upstairs in acute care, then restart at the Infusion Center again on Thursday. No further CM d/c needs identified at this time.
--- NOTE | 2024-09-14 11:27 | P.DS_ITS ---
History of Present Illness History of Present Illness Chief complaint: N/V/D Narrative: From H&P: 79 y/o chronically ill presents with rigors, fever, nausea and vomiting. He was recently hospitalized with UTI/pyelonephritis with ESBL E coli and orchitis. Was treated with IV antibiotics and improved in hospital and discharged. Today without abdominal or testicular pain. Has b/l flank pain. ED workup showing WBC of 32.9, Hb of 10, INR is 1.23 creatinine is 1.76 sodium is 137 potassium 4.8 chloride 109 CO2 is 18 with a BUN of 14 glucose is 133 lactate 1.5 LFTs WNR, procalcitonin is 0.85 poc urine positive for leukocyte esterase, no nitrates does not for blood positive for protein no ketones or glucose. Urine micro shows 10-30 white cells no red cells 1 squamous many bacteria was sent for culture. CT abdomen pelvis slight appearance decreased patchy enhancement with the kidneys could represent inflammation or inflammation such as pyelonephritis subcentimeter nonobstructing left renal calcification diverticulosis. Chest x-ray shows likely pulmonary edema. Covered with Zosyn and admitted to ICU on levophed. Interim history: The patient denies pain complaints. He was hospitalized with pyelonephritis and orchitis due to MDR E.coli and discharged 08/03/2024 on 14 days of ertapenam IV through the outpatient infusion center. He has had difficulty urinating since then with urinary urgency and frequency. His Levophed is weaning down and he states he is feeling better. He smokes 2 packs of cigarettes daily. Discharge Providers Provider Date of admission: 09/11/24 03:41 Discharge Date: 09/14/24 Primary care physician: Jayleen Alas MD Consults: 09/12/24 11:06 Consult to Occupational Therapy Evaluate & Treat Comment: Physician Instructions: Evaluate and treat Consult to Physical Therapy Evaluate & Treat Comment: Physician Instructions: Evaluate and Treat Discharge provider: Elliott Rosa MD Summary Hospital Course Discharge Diagnosis: 1. Sepsis with septic shock secondary to Orchitis and pyelonephritis with ESBL bacteremia, present on admission and improved. 2. Orchitis, present on admission and improved. 3. Severe protein caloric malnutrition with wasting, present on admission and active. 4. Tobacco dependence, present on admission and active. 5. Possible alcohol abuse, present on admission and active. 6. Chronic hypertension, present on admission and active. 7. Hypomagnesemia, present on admission and improved. 8. Acute hypoxic respiratory failure, resolved. 9. Recent Norovirus, not active. 10. Hypomagnesemia. Hospital Course: The patient was admitted with septic shock and initially required volume resuscitation and pressors. Ultimately blood cultures grew out E coli and he was initially on Zosyn. This appeared to ultimately be ESBL and he was switched to ertapenem on 09/08. The patient had improvement of leukocytosis and general clinical status. He was able to come off from pressors early on the morning of . A right arm PICC was placed and repeat cultures were negative. The patient was set up for 14 days of IV ertapenem outpatient infusion. In addition, Dr. Pacheco of Infectious Disease was contacted and we will see him 2 days after discharge. He also has a urology appointment 1 day following discharge. Given his history of ESBL recurrence after 14 days previously ertapenem, he may require a longer course of antibiotics and she will determine this. Hospital course: 09/11: He was started on IV Zosyn. He does have a history of ESBL and the MICU for Zosyn in his 8. He was treated with Ertapenem last time. 09/12: He was remained febrile overnight but did come off from norepinephrine at 4:00 a.m.. Switch to ertapenem. 09/13: Fevers improving, white blood cell count is improving. He was a right arm PICC in place. Repeat blood cultures drawn. 09/14: Clinically doing well, magnesium was low and 4 g IV was given. He did admit to not taking his outpatient magnesium which he was supposed to take chronically. Status at Discharge Cognitive/behavioral status at discharge: oriented Functional status at discharge: independent ambulation Overall status at discharge: patient is back to baseline Time Spent with Patient Time spent: Greater than 30 minutes Exam Vital Signs (past 8 hours): - 09/14/24 03:30 09/14/24 04:00 09/14/24 04:00 Temperature 100.0 F H 100.2 F H 100.0 F H Pulse Rate 82 89 89 Respiratory Rate 30 H 24 25 H Blood Pressure 134/70 Pulse Oximetry 98 Oxygen Delivery Method Oxygen Flow Rate 0 09/14/24 04:30 09/14/24 04:31 09/14/24 04:31 Temperature 99.9 F H 99.9 F H Pulse Rate 73 70 Respiratory Rate 36 H 31 H Blood Pressure 139/68 Pulse Oximetry Oxygen Delivery Method Oxygen Flow Rate 09/14/24 05:00 09/14/24 05:30 09/14/24 06:00 Temperature 99.9 F H 99.9 F H Pulse Rate 87 75 91 H Respiratory Rate 33 H 38 H 39 H Blood Pressure Pulse Oximetry Oxygen Delivery Method Oxygen Flow Rate 09/14/24 06:30 09/14/24 07:00 09/14/24 07:00 Temperature Pulse Rate 96 H 89 Respiratory Rate 36 H 36 H Blood Pressure Pulse Oximetry Oxygen Delivery Method Room Air Oxygen Flow Rate 09/14/24 07:30 09/14/24 08:00 09/14/24 08:00 Temperature 97.6 F Pulse Rate 72 85 Respiratory Rate 23 39 H Blood Pressure Pulse Oximetry Oxygen Delivery Method Oxygen Flow Rate 09/14/24 08:12 09/14/24 08:12 Temperature Pulse Rate 77 Respiratory Rate 39 H Blood Pressure 157/77 H Pulse Oximetry 97 Oxygen Delivery Method Oxygen Flow Rate Oxygen Delivery Method Room Air Oxygen Flow Rate 0 Narrative Exam Narrative: Insert short exam. Objective Imaging Multiple studies:: Radiologist's impression: Chest x-ray: Right upper extremity central venous catheter distal tip overlying the superior vena cava. Abdomen and pelvis CT: Slight appearance decreased patchy enhancement within the kidneys which could represent infection or inflammation such as pyelonephritis. Subcentimeter nonobstructing left renal calcification. Diverticulosis. Chest x-ray: no acute consolidations Labs 09/12/24 08:55 09/14/24 06:00 Labs: Laboratory Results - last 24 hr 09/14/24 09/14/24 06:00 06:40 Sodium 139 Potassium 3.6 Chloride 113 H Carbon Dioxide 18 L BUN 10 Creatinine 0.71 Estimated GFR > 60 BUN/Creatinine Ratio 14.1 Glucose 111 H Calcium 7.5 L Magnesium 0.4 L* 0.4 L* PFSH Medical History Claudication of both lower extremities COPD (chronic obstructive pulmonary disease) Hyperlipidemia CAD (coronary artery disease) HTN (hypertension) Surgical History History of heart artery stent Social History household members: none Smoking Status: Current every day smoker alcohol intake: current Discharge Assessment & Plan Assessment and Plan Assessment: 1. Sepsis with septic shock secondary to Orchitis and pyelonephritis with ESBL bacteremia, present on admission and improved. 2. Orchitis, present on admission and improved. 3. Hypomagnesemia. Plan of Treatment: Discharge home to complete 14 day course of ertapenem from the start day. Dr. Pacheco infectious Disease we will see him on September 16, Urology at [facility] we will see him on September 15. He was a right arm PICC and we will come to [facility] outpatient infusion services beginning September 15. Discharge Plan Discharge Plan Patient Disposition: Home Provider Discharge Comment: Stable for discharge. Discharge orders & Medications Prescriptions: New ertapenem 1 gram Recon Soln 1 gm IV Q24H Qty: 11 0RF Continued atorvastatin 80 mg PO BEDTIME cyanocobalamin (vitamin B-12) [Vitamin B-12] 100 mcg Tablet 100 mcg PO DAILY Qty: 60 0RF ascorbic acid (vitamin C) [Vitamin C] 500 mg Tablet 500 mg PO BID Qty: 60 0RF lisinopril 10 MG tablet 20 mg PO QDAY Qty: 90 1RF omeprazole 40 mg capsule,delayed release(DR/EC) 40 mg PO DAILY carvedilol 3.125 mg tablet 3.125 mg PO BID midodrine 2.5 mg tablet 2.5 mg PO TID furosemide 20 mg tablet 20 mg PO DAILY mirtazapine 7.5 mg tablet 7.5 mg PO BEDTIME potassium chloride 20 mEq tablet extended release 20 meq PO DAILY albuterol sulfate 90 mcg/actuation Hfa Aerosol Inhaler 2 puff INHALATION Q4-6H MDD 4 PRN (Reason: sob) odnolyedzygr-[id number] Tablet 1 tab PO DAILY Medication counseling provided by Pharmacist: No Follow up/Referrals: Jayleen Alas MD [Primary Care Provider] - Discharge Health Status Multidrug resistant organism: Other Diet/Activity/Treatments Diet: Regular Activity: As tolerated. Skin/Wound/Dressing Care Report to your healthcare provider any signs of infection, such as:: chills, fever, increased pain and unusual drainage Visit Report/Discharge Packet Instructions: DI for Kidney Infection Stand Alone Forms: Patient Portal/API, Stroke Signs & Symptoms Discharge Data Primary Care Provider: Dannhauer,Jayleen C Quality VTE Deep Vein Thrombosis/Pulmonary Embolism Present on Admission: Yes
[2024-09-14 12:42] LABS: Magnesium 1.8 mg/dL (1.6-2.3)
== END 2024-09-14 13:00 | disposition home or self-care (01) | DRG 871 ==
LOC: ED 03:36 → AC 03:42 → ICU 04:44
PROVIDERS: Hospitalist; Internal Medicine; Admitting Provider Internal Medicine; Emergency Provider Emergency Medicine; PCP Internal Medicine; Referring Provider Emergency Medicine; Visit Provider Internal Medicine
DX: A41.51 Sepsis due to Escherichia coli [E. coli] (principal); E43 Unspecified severe protein-calorie malnutrition; R65.21 Severe sepsis with septic shock; J96.01 Acute respiratory failure with hypoxia; N17.9 Acute kidney failure, unspecified; N10 Acute pyelonephritis; J81.1 Chronic pulmonary edema; I10 Essential (primary) hypertension; I25.10 Atherosclerotic heart disease of native coronary artery without angina pectoris; E78.5 Hyperlipidemia, unspecified; J44.9 Chronic obstructive pulmonary disease, unspecified; F17.210 Nicotine dependence, cigarettes, uncomplicated; N45.2 Orchitis; Z68.20 Body mass index [BMI] 20.0-20.9, adult; F10.10 Alcohol abuse, uncomplicated; E83.42 Hypomagnesemia; Z95.5 Presence of coronary angioplasty implant and graft
CPT/HCPCS: 36415; 36592; 71045; 74177; 80048; 80053; 81003; 81015; 83605; 83690; 83735; 84145; 85007; 85025; 85027; 85610; 85730; 87040; 87077; 87086; 87154; 87186; 87797; 93005; 93010; 96365; 96366; 96367; 96375; 97162; 97166; 99284; 99291; 99292; J0131; J1171; J1335; J1644; J2405; J2543; J3475; Q9967

== ENCOUNTER 2024-09-16 13:41 | Emergency (ER) | payer MEDICARE, OTHER, SELFPAY ==
[2024-09-11 04:09] VITALS: BMI 17.6
[2024-09-16] VITALS (7 sets, daily range): BP systolic 138–159; BP diastolic 67–76; PULSE 77–93; RESP 18–24; TEMP 36.7; O2SAT 96–99
--- NOTE | 2024-09-16 14:11 | EKG_ITS ---
[address] [address] Test Date: 2024-09-16 Pat Name: Yazan Anderson Department: Room: Gender: Male Disk [employer] T[employer] Machine Tender: MAYKEL : 1945 Requested By: Order Number: [id number] Reading MD: Nahid Belle MD Measurements Intervals [place] Rate: 90 P: 79 ND: 148 QRS: -58 QRSD: 120 T: 7 QT: 394 QTc: 481 Interpretive Statements Sinus rhythm with occasional premature ventricular complexes and premature atrial complexes Left axis deviation Low voltage QRS Right bundle branch block Inferior infarct , age undetermined NO SIGNIFICANT CHANGE FROM PRIOR TRACING Electronically Signed On 09-16-2024 15:03:16 PDT by Nahid Belle MD
--- NOTE | 2024-09-16 14:20 | ED_ITS ---
HPI - Recheck/Abnormal Lab/Rx General Chief Complaint: Recheck/Abnormal Lab/Rx Stated Complaint: sent by infectious disease for mag levels Time Seen by Provider: 09/16/24 14:09 Source: patient and family Mode of arrival: Wheelchair History of Present Illness HPI narrative: 79-year-old gentleman hx of copd, chf, chronic diarrhea being seen by infectious disease MD for ESBL E coli UTI seen 2 days ago here for n/v/d sent over IV mag as it was 0.9 today at the office. Other than what is stated 14 point review of system is negative. Related Data Home Medications Medication Instructions Recorded Confirmed atorvastatin 80 mg PO BEDTIME 06/21/21 09/12/24 albuterol sulfate 90 mcg/actuation 2 puff inhalation Q4-6H PRN sob 07/30/24 09/12/24 aerosol inhaler carvedilol 3.125 mg tablet 3.125 mg PO BID 07/30/24 09/12/24 furosemide 20 mg tablet 20 mg PO DAILY 07/30/24 09/12/24 midodrine 2.5 mg tablet 2.5 mg PO TID 07/30/24 09/12/24 mirtazapine 7.5 mg tablet 7.5 mg PO BEDTIME 07/30/24 09/12/24 onozpxhsfdap-uaqqfuuk-oygnpu tablet 1 tab PO DAILY 07/30/24 09/12/24 omeprazole 40 mg capsule,delayed 40 mg PO DAILY 07/30/24 09/12/24 release potassium chloride 20 mEq 20 meq PO DAILY 07/30/24 09/12/24 tablet,extended release Previous Rx's Medication Instructions Recorded ascorbic acid (vitamin C) 500 mg 500 mg PO BID #60 tabs 06/25/21 tablet (Vitamin C) cyanocobalamin (vitamin B-12) 100 100 mcg PO DAILY #60 tabs 06/25/21 mcg tablet (Vitamin B-12) lisinopril 10 mg tablet 20 mg (2 x 10 mg) PO QDAY #90 tabs 08/18/22 ertapenem 1 gram solution for 1 gm IV Q24H #11 doses 09/14/24 injection magnesium oxide 400 mg (241.3 mg 800 mg (2 x 400 mg (241.3 mg 09/16/24 magnesium) tablet (MagOx) magnesium)) PO DAILY #6 tabs Allergies Allergy/AdvReac Type Severity Reaction Status Date / Time lactose AdvReac Unknown Gastrointestinal Verified 09/12/24 16:21 Upset Review of Systems Review of Systems ROS Unobtainable: All systems reviewed & are unremarkable except as noted in HPI and below Patient History Medical History Claudication of both lower extremities COPD (chronic obstructive pulmonary disease) Hyperlipidemia CAD (coronary artery disease) HTN (hypertension) Surgical History History of heart artery stent Social History household members: none Smoking Status: Current every day smoker alcohol intake: current Smoking Status: Current every day smoker tobacco type: cigarettes alcohol intake frequency: 0-2 drinks per day Alcohol type: beer Exam Narrative Exam Narrative: GENERAL: [79] year old patient appears stated age. Well-developed patient, in mild distress. HEAD: Atraumatic. Normocephalic. EYES: Pupils equal round and reactive. Extraocular motions intact. No scleral icterus. No injection or drainage. NECK: Trachea midline. Non tender CARDIOVASCULAR: Regular rate and rhythm without murmurs, gallops, or rubs. RESPIRATORY: Clear to auscultation. Breath sounds equal bilaterally. No wheezes, rales, or rhonchi. GASTROINTESTINAL: Abdomen soft, non-tender, nondistended. EXTREMITIES: +1 edema pretibial b/l. BACK: Nontender without deformity or crepitance. No flank tenderness. NEURO: AOx3. SKIN: No rash or erythema of visible areas Initial Vital Signs Initial Vital Signs: Vital Signs Temperature 98.0 F 09/16/24 13:55 Pulse Rate 91 H 09/16/24 13:55 Respiratory Rate 18 09/16/24 13:55 Blood Pressure 153/76 H 09/16/24 13:55 Pulse Oximetry 99 09/16/24 13:55 Oxygen Delivery Method Room Air 09/16/24 13:55 Course Orders Ordered: ED Orders 09/16/24 14:01 CBC Auto Diff [Complete Blood Count AUTO DIFF] Stat Comprehensive Metabolic Panel Stat 09/16/24 14:16 EKG-12 Lead Stat Vital Signs Vital signs: Vital Signs - 8 hr 09/16/24 13:55 Temperature 98.0 F Pulse Rate 91 H Respiratory Rate 18 Blood Pressure 153/76 H Pulse Oximetry 99 Oxygen Delivery Method Room Air MDM - Recheck/Abnormal Lab/Rx ECG Data Attestation: I personally reviewed and interpreted this ECG as follows: Interpretation: SR with occasional PVC RBBB Left axis HR [address]-t wave change No change from 09/11/24 [facility] Narrative Medical decision making narrative: All lab work reviewed patient was given magnesium 2 g IV x1. All lab work imaging studies reviewed from previous ER visits along with vital Signs nurse triage note medication list all reviewed as well differential diagnosis includes hypokalemia, hypomagnesemia, acute renal impairment. Pt given prescription for mag oxide. Return with new or worsening symptoms Discharge Plan Departure Patient Disposition: Home Clinical Impression: Hypomagnesemia Activity Restrictions/Additional Instructions: Return with new or worsening symptoms. Follow up with PCP next week Prescriptions: New magnesium oxide [MagOx] 400 mg (241.3 mg magnesium) tablet 800 mg PO DAILY Qty: 6 0RF No Action atorvastatin 80 mg PO BEDTIME cyanocobalamin (vitamin B-12) [Vitamin B-12] 100 mcg Tablet 100 mcg PO DAILY Qty: 60 0RF ascorbic acid (vitamin C) [Vitamin C] 500 mg Tablet 500 mg PO BID Qty: 60 0RF lisinopril 10 MG tablet 20 mg PO QDAY Qty: 90 1RF omeprazole 40 mg capsule,delayed release(DR/EC) 40 mg PO DAILY carvedilol 3.125 mg tablet 3.125 mg PO BID midodrine 2.5 mg tablet 2.5 mg PO TID furosemide 20 mg tablet 20 mg PO DAILY mirtazapine 7.5 mg tablet 7.5 mg PO BEDTIME potassium chloride 20 mEq tablet extended release 20 meq PO DAILY albuterol sulfate 90 mcg/actuation Hfa Aerosol Inhaler 2 puff INHALATION Q4-6H MDD 4 PRN (Reason: sob) [id number] Tablet 1 tab PO DAILY ertapenem 1 gram Recon Soln 1 gm IV Q24H Qty: 11 0RF Referrals: Tae Asencio ARNP [Primary Care Provider] - Stand Alone Forms: Patient Portal/API/Survey
[2024-09-16 14:25] LABS: Add Manual Diff / Slide Review NO; Basophils Absolute Auto 100 /uL (0-100); Basophils Percent Auto 0.9 % (0-2); Eosinophils Absolute Auto 300 /uL (0-450); Eosinophils Percent Auto 3.5 % (2-4); Hematocrit 26.3 % (41-53); Hemoglobin 8.8 g/dL (13.5-17.5); Lymphocytes Absolute Auto 1000 /uL (1100-4500); Lymphocytes Percent Auto 11.8 % (25-40); Mean Corpuscular HGB Conc 33.4 % (30-36); Mean Corpuscular Hemoglobin 32.5 PG (26-34); Mean Corpuscular Volume 97.3 fL (80-100); Monocytes Absolute Auto 700 /uL (0-900); Monocytes Percent Auto 8.4 % (3-14); Neutrophils Absolute Auto 6200 /uL (1500-7000); Neutrophils Percent Auto 75.4 % (50-75); Platelet Count 373 X10^3/uL (150-400); White Blood Cell Count 8.2 X10^3/uL (4.5-11.0)
[2024-09-16] MEDS: SODIUM CHLORIDE 0.9% 1,000 ML 1000 ML IV (14:35)
[2024-09-16] MEDS: MAGNESIUM SULFATE 2 GM/50 ML PIGGYBACK IV (14:38)
[2024-09-16 14:42] LABS: Alanine Aminotransferase 31 IU/L (<50); Albumin 3.1 g/dL (3.5-5.0); Albumin Globulin Ratio 1.1 (1.0-2.8); Alkaline Phosphatase 91 U/L (38-126); Aspartate Aminotransferase 43 IU/L (17-59); BUN Creatinine Ratio 10.8 (6-22); Bilirubin Total 0.3 mg/dL (0.2-1.3); Blood Urea Nitrogen 8 mg/dL (9-20); Calcium 8.7 mg/dL (8.4-10.2); Carbon Dioxide 25 mmol/L (22-32); Chloride 113 mmol/L (98-107); Estimated Glomerular Filt Rate > 60 mL/min (>60); Globulin 2.8 g/dL (1.7-4.1); Glucose 124 mg/dL (80-110); HEMOLYSIS < 15 (0-50); Potassium 3.7 mmol/L (3.4-5.1); Sodium 146 mmol/L (137-145); Total Protein 5.9 g/dL (6.3-8.2)
[2024-09-16 14:50] LABS: NT-proBNP (BNP-Adult 18+) 10200 pg/mL (<450)
[2024-09-16 15:13] LABS: Anisocytosis 1+; Ovalocytes 1+
== END 2024-09-16 16:44 | disposition home or self-care (01) ==
PROVIDERS: Emergency Provider Family Medicine; PCP Nurse Practitioner Adult Health
DX: E83.42 Hypomagnesemia (principal)
CPT/HCPCS: 36415; 80053; 83735; 83880; 85025; 93005; 93010; 96365; 99284; J3475

== ENCOUNTER 2024-10-16 20:14 | Inpatient (IN) | payer MEDICARE, OTHER, SELFPAY ==
[2024-09-11 04:09] VITALS: BMI 17.6
[2024-10-16] VITALS (29 sets, daily range): BP systolic 75–120; BP diastolic 47–60; PULSE 52–92; RESP 13–28; TEMP 36.9; O2SAT 81–100; BMI 18.6
--- NOTE | 2024-10-16 20:36 | EKG_ITS ---
[place] [id number] [place] [id number] Test Date: 2024-10-16 Pat Name: Yazan Anderson Department: [facility] Room: Gender: Male Desk Operator: JAYESH GUADALUPE : 1945 Requested By: Order Number: [id number] Reading MD: Estuardo Cheney Measurements Intervals [place] Rate: 59 P: 56 FL: 134 QRS: -24 QRSD: 130 T: 63 QT: 416 QTc: 411 Interpretive Statements Sinus bradycardia Right bundle branch block Electronically Signed On 10-19-2024 17:38:05 PDT by Estuardo Cheney
[2024-10-16] MEDS: SODIUM CHLORIDE 0.9% 1,000 ML 1000 ML IV ×2 (20:50→21:15)
[2024-10-16 20:54] LABS: Add Manual Diff / Slide Review NO; Basophils Absolute Auto 100 /uL (0-100); Basophils Percent Auto 0.8 % (0-2); Eosinophils Absolute Auto 200 /uL (0-450); Eosinophils Percent Auto 1.6 % (2-4); Hematocrit 27.5 % (41-53); Hemoglobin 9.3 g/dL (13.5-17.5); Lymphocytes Absolute Auto 1100 /uL (1100-4500); Lymphocytes Percent Auto 8.3 % (25-40); Mean Corpuscular Hemoglobin 32.1 PG (26-34); Mean Corpuscular Volume 94.6 fL (80-100); Monocytes Absolute Auto 700 /uL (0-900); Monocytes Percent Auto 5.7 % (3-14); Neutrophils Absolute Auto 10700 /uL (1500-7000); Neutrophils Percent Auto 83.6 % (50-75); Platelet Count 149 X10^3/uL (150-400); Red Blood Cell Count 2.91 X10^6/uL (4.5-5.9); Red Cell Distribution Width 22.2 % (11.6-14.8); White Blood Cell Count 12.8 X10^3/uL (4.5-11.0)
[2024-10-16 20:57] LABS: Alanine Aminotransferase 25 IU/L (<50); Albumin 3.3 g/dL (3.5-5.0); Albumin Globulin Ratio 1.3 (1.0-2.8); Alkaline Phosphatase 68 U/L (38-126); Aspartate Aminotransferase 32 IU/L (17-59); BUN Creatinine Ratio 18.9 (6-22); Bilirubin Total 0.5 mg/dL (0.2-1.3); Blood Urea Nitrogen 70 mg/dL (9-20); Calcium 7.9 mg/dL (8.4-10.2); Carbon Dioxide 12 mmol/L (22-32); Chloride 108 mmol/L (98-107); Estimated Glomerular Filt Rate 16 mL/min (>60); Globulin 2.6 g/dL (1.7-4.1); Glucose 105 mg/dL (70-99); HEMOLYSIS < 15 (0-50); Lipase 744 U/L (23-300); Potassium 5.2 mmol/L (3.4-5.1); Sodium 132 mmol/L (137-145); Total Protein 5.9 g/dL (6.3-8.2)
--- NOTE | 2024-10-16 21:23 | ED.NAVMDI ---
HPI - Nausea/Vomiting/Diarrhea General Chief complaint: Nausea/Vomiting/Diarrhea Stated complaint: Mid back pain, N/V Time Seen by Provider: 10/16/24 21:15 Source: patient and EMS Mode of arrival: EMS History of Present Illness HPI Narrative: 79-year-old male with history of recurrent urine infections, was treated with antibiotics 2 weeks ago, now having generalized weakness, ongoing chronic diarrhea. No focal weakness or numbness. No injury trauma or new activities. No fevers or chills. Still continues to smoke. Denies chest pain. Has some back pain as with past/recent urine infections. Denies black/red stools. No focal weakness or numbness. Related Data Home Medications Medication Instructions Recorded Confirmed albuterol sulfate 90 mcg/actuation 2 puff inhalation Q4-6H PRN sob 07/30/24 10/16/24 aerosol inhaler carvedilol 3.125 mg tablet 3.125 mg PO BID 07/30/24 10/16/24 furosemide 20 mg tablet 20 mg PO BID 07/30/24 10/16/24 midodrine 2.5 mg tablet 2.5 mg PO TID 07/30/24 10/16/24 mirtazapine 7.5 mg tablet 7.5 mg PO BEDTIME 07/30/24 10/16/24 cddldvuboiem-gkuohdkx-yvgtfb tablet 1 tab PO DAILY 07/30/24 10/16/24 omeprazole 40 mg capsule,delayed 40 mg PO DAILY 07/30/24 10/16/24 release potassium chloride 20 mEq 20 meq PO DAILY 07/30/24 10/16/24 tablet,extended release atorvastatin 80 mg tablet 80 mg PO DAILY 09/20/24 10/16/24 magnesium chloride 64 mg 64 mg PO TID 09/20/24 10/16/24 (magnesium chloride) tablet,delayed release tamsulosin 0.4 mg capsule 0.4 PO DAILY 10/16/24 Previous Rx's Medication Instructions Recorded ascorbic acid (vitamin C) 500 mg 500 mg PO BID #60 tabs 06/25/21 tablet (Vitamin C) cyanocobalamin (vitamin B-12) 100 100 mcg PO DAILY #60 tabs 06/25/21 mcg tablet (Vitamin B-12) lisinopril 10 mg tablet 20 mg (2 x 10 mg) PO QDAY #90 tabs 08/18/22 Allergies Allergy/AdvReac Type Severity Reaction Status Date / Time lactose AdvReac Unknown Gastrointestinal Verified 09/12/24 16:21 Upset Patient History Medical History Claudication of both lower extremities COPD (chronic obstructive pulmonary disease) Hyperlipidemia CAD (coronary artery disease) HTN (hypertension) Surgical History History of heart artery stent Social History household members: none Smoking Status: Current every day smoker alcohol intake: current Smoking Status: Current every day smoker tobacco type: cigarettes alcohol intake frequency: 0-2 drinks per day Alcohol type: beer Exam Narrative Exam Narrative: GENERAL: Well-developed patient, in mild distress. HEAD: Atraumatic. Normocephalic. EYES: Pupils equal round and reactive. Extraocular motions intact. No scleral icterus. No injection or drainage. ENT: Nose without bleeding, purulent drainage. Throat without erythema, tonsillar hypertrophy or exudate. Airway patent. NECK: Trachea midline. Non tender CARDIOVASCULAR: Regular rate and rhythm without murmurs, gallops, or rubs. RESPIRATORY: Clear to auscultation. Breath sounds equal bilaterally. No wheezes, rales, or rhonchi. GASTROINTESTINAL: Abdomen soft, non-tender, nondistended. EXTREMITIES: No edema or joint tenderness. BACK: Nontender without deformity or crepitance. No flank tenderness. NEURO: AOx3. Motor functions grossly nonfocal. SKIN: No rash or erythema of visible areas Initial Vital Signs Initial Vital Signs: Vital Signs Pulse Rate 59 L 10/16/24 20:16 Pulse Oximetry 97 10/16/24 20:16 Oxygen Delivery Method Room Air 10/16/24 20:16 Procedures Central Line Placement Right IJ: Time of procedure: 03:58 Time Out Performed: No Patient Placed on Monitor/Pulse Ox: Yes MD Prep: mask, gown and gloves Central Line Prep: Chlorhexidine scrub Local Anesthetic: lidocaine 1% Amount of anesthesia used (mL): 4 Ultrasound Used for Placement: Yes Central Line Lumen Inserted: triple Post Procedure: sutured in place, good blood return, all ports aspirated, flushed, capped, sterile dressing applied and line stabilization device Post Procedure X-Ray: tip of catheter in good position Patient Tolerated Procedure: Well Complications: none Course Orders Ordered: Acetaminophen (Acetaminophen 325 Mg Tablet) 650 mg PO Q6H PRN PRN Reason: Fever/Mild Pain (1-3) Atorvastatin Calcium (Atorvastatin 20 Mg Tablet) 80 mg PO DAILY [facility] Last Admin: 10/17/24 09:44 Dose: 80 mg Documented By: LA Carvedilol (Carvedilol 3.125 Mg Tablet) 3.125 mg PO BID [facility] Last Admin: 10/17/24 09:45 Dose: 3.125 mg Documented By: LA Heparin Sodium (Porcine) (Heparin 5,000 Unit/Ml Vial) 5,000 unit SUBCUT BID [facility] Last Admin: 10/17/24 09:45 Dose: Not Given Documented By: LA Sodium Chloride (Normal Saline 0.9%) 1,000 mls @ 125 mls/hr IV CONT [facility] Last Admin: 10/17/24 14:01 Dose: 125 mls/hr Documented By: Infusion: 10/17/24 14:01 Dose: Infused Documented By: Infusion: 10/17/24 08:54 Dose: 125 mls/hr Documented By: Admin: 10/17/24 05:36 Dose: 75 mls/hr Documented By: TO NOREPINEPHRINE BITARTRATE/D5W (Levophed) 4 mg in 250 mls @ 20.905 mls/hr IV TITRATE [facility]; Protocol Last Titration: 10/17/24 07:27 Dose: 0 mcg/kg/min, 0 mls/hr Documented By: Admin: 10/17/24 05:31 Dose: 0.005 mcg/kg/min, 1.045 mls/hr Documented By: TO Meropenem 500 mg/ Sodium (Chloride) 100 mls @ 200 mls/hr IV Q12H [facility] Loperamide HCl (Loperamide 2 Mg Capsule) 2 mg PO QID PRN PRN Reason: Diarrhea Magnesium Chloride (Magnesium Chloride 64 Mg Tablet) 64 mg PO BID [facility] Last Admin: 10/17/24 09:44 Dose: 64 mg Documented By: LA Midodrine (Midodrine Hcl 5 Mg Tablet) 2.5 mg PO TID [facility] Last Admin: 10/17/24 14:01 Dose: 2.5 mg Documented By: Admin: 10/17/24 09:44 Dose: 2.5 mg Documented By: LA Mirtazapine (Mirtazapine 15 Mg Tablet) 7.5 mg PO BEDTIME [facility] Naloxone HCl (Naloxone 0.4 Mg/Ml Vial) 0.2 mg IV Q2MIN PRN PRN Reason: Opiate Reversal Naloxone HCl (Naloxone 0.4 Mg/Ml Vial) 0.2 mg IV Q2MIN PRN PRN Reason: Opiate Reversal Pantoprazole Sodium (Pantoprazole Dr 40 Mg Tablet) 40 mg PO DAILY [facility] Last Admin: 10/17/24 09:44 Dose: 40 mg Documented By: LA Potassium Chloride (Potassium Chloride 20 Meq Tab) 20 meq PO DAILY [facility] Last Admin: 10/17/24 09:44 Dose: 20 meq Documented By: LA Sodium Chloride (Sodium Chloride 0.9% Flush) 10 ml IV PRN PRN PRN Reason: Flush Sodium Chloride (Sodium Chloride 0.9% Flush) 10 ml IV BID [facility] Discontinued Medications Hydromorphone HCl (Hydromorphone 0.5 Mg Inj) 0.5 mg IV NOW ONE Stop: 10/17/24 04:12 Last Admin: 10/17/24 04:15 Dose: 0.5 mg Documented By: [facility] Sodium Chloride (Normal Saline 0.9%) 1,000 mls @ 1,000 mls/hr IV BOLUS ONE Stop: 10/16/24 21:49 Last Infusion: 10/16/24 21:15 Dose: Infused Documented By: [facility] Admin: 10/16/24 20:50 Dose: 1,000 mls/hr Documented By: C Sodium Chloride (Normal Saline 0.9%) 1,000 mls @ 1,000 mls/hr IV BOLUS ONE Stop: 10/16/24 22:13 Last Infusion: 10/16/24 21:50 Dose: Infused Documented By: [facility] Admin: 10/16/24 21:15 Dose: 1,000 mls/hr Documented By: [facility] Lactated Ringer's (Lactated Ringers) 1,000 mls @ 1,000 mls/hr IV BOLUS ONE Stop: 10/16/24 22:14 Last Infusion: 10/16/24 23:25 Dose: Infused Documented By: [facility] Admin: 10/16/24 21:53 Dose: 1,000 mls/hr Documented By: C Ceftriaxone Sodium 1,000 mg/ (Sodium Chloride) 100 mls @ 200 mls/hr IV NOW ONE Stop: 10/16/24 22:20 Last Admin: 10/16/24 23:26 Dose: Not Given Documented By: [facility] Ertapenem 1 gm/ Sodium (Chloride) 100 mls @ 200 mls/hr IV NOW ONE Stop: 10/16/24 22:26 Last Infusion: 10/16/24 23:55 Dose: Infused Documented By: Admin: 10/16/24 23:08 Dose: 200 mls/hr Documented By: [facility]LC NOREPINEPHRINE BITARTRATE/D5W (Levophed) 4 mg in 250 mls @ 20.905 mls/hr IV TITRATE [facility]; Protocol Last Titration: 10/17/24 03:10 Dose: 0.005 mcg/kg/min, 1.045 mls/hr Documented By: Titration: 10/17/24 02:55 Dose: 0.01 mcg/kg/min, 2.091 mls/hr Documented By: Titration: 10/17/24 02:50 Dose: 0.02 mcg/kg/min, 4.181 mls/hr Documented By: Titration: 10/17/24 02:40 Dose: 0.025 mcg/kg/min, 5.226 mls/hr Documented By: Titration: 10/17/24 02:30 Dose: 0.05 mcg/kg/min, 10.453 mls/hr Documented By: Titration: 10/17/24 00:25 Dose: 0 mcg/kg/min, 0 mls/hr Documented By: Admin: 10/17/24 00:17 Dose: 0.1 mcg/kg/min, 20.905 mls/hr Documented By: [facility] Lactated Ringer's (Lactated Ringers) 1,000 mls @ 125 mls/hr IV CONT [facility] Last Infusion: 10/17/24 08:54 Dose: 0 mls/hr Documented By: Admin: 10/17/24 04:11 Dose: 125 mls/hr Documented By: [facility]LC Ertapenem 1 gm/ Sodium (Chloride) 100 mls @ 200 mls/hr IV Q24H [facility] Last Admin: 10/17/24 05:38 Dose: Not Given Documented By: TO Ertapenem 0.5 gm/ Sodium (Chloride) 100 mls @ 200 mls/hr IV Q24H [facility] Ondansetron HCl (Ondansetron 4 Mg/2 Ml Inj) 4 mg IV NOW PRN PRN Reason: Nausea And Vomiting Ondansetron HCl (Ondansetron 4 Mg Odt) 4 mg PO NOW PRN PRN Reason: Nausea And Vomiting Vital Signs Vital signs: Vital Signs - 8 hr 10/16/24 20:36 10/16/24 20:36 10/16/24 20:50 Pulse Rate 78 Respiratory Rate Blood Pressure 86/53 L 87/54 L Pulse Oximetry 99 10/16/24 20:50 10/16/24 21:00 10/16/24 21:00 Pulse Rate 66 90 Respiratory Rate 19 Blood Pressure 81/50 L Pulse Oximetry 99 100 10/16/24 21:10 10/16/24 21:10 10/16/24 21:22 Pulse Rate 69 Respiratory Rate 25 H Blood Pressure 85/53 L 76/52 L Pulse Oximetry 100 10/16/24 21:22 10/16/24 21:25 10/16/24 21:25 Pulse Rate 86 91 H Respiratory Rate 22 19 Blood Pressure 83/47 L Pulse Oximetry 98 100 10/16/24 21:30 10/16/24 21:30 10/16/24 21:40 Pulse Rate 92 H Respiratory Rate 24 Blood Pressure 97/52 L 92/60 Pulse Oximetry 100 10/16/24 21:40 10/16/24 21:45 10/16/24 21:45 Pulse Rate 66 77 Respiratory Rate 23 21 Blood Pressure 83/54 L Pulse Oximetry 96 92 10/16/24 21:50 10/16/24 21:50 10/16/24 21:55 Pulse Rate 88 Respiratory Rate 18 Blood Pressure 84/57 L 85/48 L Pulse Oximetry 98 10/16/24 21:55 10/16/24 22:00 10/16/24 22:00 Pulse Rate 89 87 Respiratory Rate 23 16 Blood Pressure 90/52 L Pulse Oximetry 97 98 10/16/24 22:05 10/16/24 22:05 10/16/24 22:10 Pulse Rate 86 64 Respiratory Rate 13 20 Blood Pressure 85/52 L Pulse Oximetry 97 98 10/16/24 22:10 10/16/24 22:30 10/16/24 22:52 Pulse Rate 72 52 L Respiratory Rate 21 24 Blood Pressure 79/49 L Pulse Oximetry 100 94 10/16/24 22:52 10/16/24 23:02 10/16/24 23:03 Pulse Rate 73 Respiratory Rate 28 H Blood Pressure 94/51 L 97/52 L Pulse Oximetry 93 10/16/24 23:03 10/16/24 23:05 10/16/24 23:05 Pulse Rate 61 84 Respiratory Rate 22 19 Blood Pressure 105/57 L Pulse Oximetry 96 99 10/16/24 23:11 10/16/24 23:11 10/16/24 23:20 Pulse Rate 87 Respiratory Rate 17 Blood Pressure 104/59 L 120/55 L Pulse Oximetry 99 10/16/24 23:20 10/16/24 23:30 10/16/24 23:30 Pulse Rate 82 79 Respiratory Rate 24 18 Blood Pressure 87/48 L Pulse Oximetry 99 99 10/16/24 23:40 10/16/24 23:40 10/16/24 23:50 Pulse Rate 62 82 Respiratory Rate 19 15 Blood Pressure 88/52 L Pulse Oximetry 100 98 10/16/24 23:50 10/17/24 00:00 10/17/24 00:00 Pulse Rate 92 H Respiratory Rate 17 Blood Pressure 90/53 L 83/51 L Pulse Oximetry 97 10/17/24 00:10 10/17/24 00:10 10/17/24 00:25 Pulse Rate 91 H Respiratory Rate 18 Blood Pressure 87/50 L 144/60 H Pulse Oximetry 97 10/17/24 00:25 10/17/24 00:30 10/17/24 00:30 Pulse Rate 46 L 57 L Respiratory Rate 17 22 Blood Pressure 106/51 L Pulse Oximetry 98 98 10/17/24 00:34 10/17/24 00:35 Pulse Rate 54 L Respiratory Rate 20 Blood Pressure 108/56 L Pulse Oximetry 99 MDM - Nausea/Vomiting/Diarrhea Lab Data Attestation: I reviewed the patient's lab results. Lab results narrative: White blood cell count 99173, hemoglobin 9.3, platelets 149,000. Glucose 85. BUN 70 with creatinine 3.7 elevated. Glucose 105. Sodium 132, potassium 5.2, serum CO2 12. Calculated anion gap 12. Liver functions not elevated. Urinalysis shows moderate bacteriuria, urine culture sent. 10/16/24 20:25 10/16/24 22:37 Labs: Lab Results 10/16/24 10/16/24 10/16/24 Range/Units 20:25 21:37 22:37 WBC 12.8 H (4.5-11.0) X10^3/uL RBC 2.91 L (4.5-5.9) X10^6/uL Hgb 9.3 L (13.5-17.5) g/dL Hct 27.5 L (41-53) % MCV 94.6 (80-100) fL MCH 32.1 (26-34) PG MCHC 34.0 (30-36) % RDW 22.2 H (11.6-14.8) % Plt Count 149 L (150-400) X10^3/uL Neut % (Auto) 83.6 H (50-75) % Lymph % (Auto) 8.3 L (25-40) % [place] % (Auto) 5.7 (3-14) % Eos % (Auto) 1.6 L (2-4) % Baso % (Auto) 0.8 (0-2) % Neut # (Auto) 42873 H (7657-9431) /uL Lymph # (Auto) 1100 (5069-9400) /uL [place] # (Auto) 700 (0-900) /uL Eos # (Auto) 200 (0-450) /uL Baso # (Auto) 100 (0-100) /uL Nucleated RBCs Cancelled Hypersegmented Neuts Cancelled Hypogranular Neuts Cancelled Reactive Lymphocytes Cancelled Smudge Cells Cancelled Other Cell Type Cancelled Toxic Granulation Cancelled Toxic Vacuolation Cancelled Dohle Bodies Cancelled [place] Rods Cancelled WBC Morphology Comment Cancelled Platelet Estimate Cancelled Clumped Platelets Cancelled Plt Morphology Comment Cancelled RBC Morphology Cancelled Dimorphic RBCs Cancelled Polychromasia Cancelled Hypochromasia Cancelled Poikilocytosis Cancelled Basophilic Stippling Cancelled Anisocytosis Cancelled Microcytosis Cancelled Macrocytosis Cancelled Spherocytes Cancelled Pappenheimer Bodies Cancelled Sickle Cells Cancelled Target Cells Cancelled Tear Drop Cells Cancelled Ovalocytes Cancelled Stomatocytes Cancelled Helmet Cells Cancelled [place] Bodies Cancelled [place] Rings Cancelled [place] Cells Cancelled Acanthocytes (Spur) Cancelled Rouleaux Cancelled Schistocytes Cancelled Sodium 132 L 135 L (137-145) mmol/L Potassium 5.2 H 5.0 (3.4-5.1) mmol/L Chloride 108 H 113 H (98-107) mmol/L Carbon Dioxide 12 L 11 L (22-32) mmol/L BUN 70 H 63 H (9-20) mg/dL Creatinine 3.70 H 3.13 H (0.66-1.25) mg/dL Estimated GFR 16 L 20 L (>60) mL/min BUN/Creatinine Ratio 18.9 20.1 (6-22) Glucose 105 H 85 (70-99) mg/dL Lactate 0.8 (0.7-2.1) mmol/L Calcium 7.9 L 7.1 L (8.4-10.2) mg/dL Total Bilirubin 0.5 (0.2-1.3) mg/dL AST 32 (17-59) IU/L ALT 25 (<50) IU/L Alkaline Phosphatase 68 (38-126) U/L Total Protein 5.9 L (6.3-8.2) g/dL Albumin 3.3 L (3.5-5.0) g/dL Globulin 2.6 (1.7-4.1) g/dL Albumin/Globulin Ratio 1.3 (1.0-2.8) Lipase 744 H (23-300) U/L Procalcitonin 175 H (<0.5) ng/mL Urine RBC 0-1/hpf (0-5/HPF) Urine WBC >100/hpf H (0-5/HPF) Ur Squamous Epith Cells 0-1 /hpf (0-5/HPF) Urine Bacteria Moderate (10-30) H (None) Hyaline Casts 0-1/lpf (None) Vol Urine Centrifuged 10ml (spun) A.calcoaceticus-baumannii cmplx PCR Not detected (Not Detect) Bacteroides fragilis Not detected (Not Detect) Juliana albicans (PCR) Not detected (Not Detect) Juliana auris (PCR) Not detected (Not Detect) C. glabrata (PCR) Not detected (Not Detect) C. krusei (PCR) Not detected (Not Detect) C. parapsilosis (PCR) Not detected (Not Detect) C. tropicalis (PCR) Not detected (Not Detect) C. neoform/gattii (PCR) Not detected (Not Detect) Enterobacterales (PCR) Detected (Not Detect) E. cloacae complex PCR Not detected (Not Detect) Enterococc faecalis PCR Not detected (Not Detect) Enterococc faecium PCR Not detected (Not Detect) E. coli (PCR) Detected (Not Detect) H. influenzae (PCR) Not detected (Not Detect) Klebsiella aerogenes (PCR) Not detected (Not Detect) Klebsiella oxytoca PCR Not detected (Not Detect) Klebsiella pneumoniae Not detected (Not Detect) List. monocytogenes PCR Not detected (Not Detect) N. meningitidis (PCR) Not detected (Not Detect) Proteus species (PCR) Not detected (Not Detect) Salmonella spp. (PCR) Not detected (Not Detect) Serratia marcescens PCR Not detected (Not Detect) Staphylococcus sp PCR Not detected (Not Detect) Staph aureus (PCR) Not detected (Not Detect) mecA/C & MREJ Resist Gene Not applicable (Not Detect) mecA/C-Methicil Resis Gene Not applicable (Not Detect) mcr-1 Colistin Res Gene PCR Not detected (Not Detect) Staph epidermidis (PCR) Not detected (Not Detect) Staph lugdunensis PCR Not detected (Not Detect) S. maltophilia (PCR) Not detected (Not Detect) Streptococcus sp PCR Not detected (Not Detect) Group A Strep (PCR) Not detected (Not Detect) Strep agalactiae (PCR) Not detected (Not Detect) Strep pneumoniae (PCR) Not detected (Not Detect) P. aeruginosa (PCR) Not detected (Not Detect) Rebeca/B-Vanco Res Genes Not applicable (Not Detect) blaIMP Car res Gene PCR Not detected (Not Detect) KPC-Carbap Res Gene PCR Not detected (Not Detect) blaNDM Car Res Gene PCR Not detected (Not Detect) OXA-48 Carbapenem Resis Gene (PCR) Not detected (Not Detect) blaVIM Car Res Gene PCR Not detected (Not Detect) CTX-M Gene Resistance (PCR) Detected (Not Detect) Urine Dip Bedside Urine Glucose Negative Bedside Urine Bilirubin - Negative Bedside Urine Ketone - Negative Urine Specific [place] 1.010 Bedside Urine Occult Blood + Bedside Urine pH 5.5 Bedside Urine Protein +/- 15 Bedside Urine Urobilinogen - Negative Bedside Urine Nitrite - Negative Bedside Urine Leukocytes + [address] scan - abdomen/pelvis: Radiologist's Impression: [address] [address] [address] Scan Report Signed Patient: Yazan Anderson MR#: [id number] : 1945 Acct:[id number] Age/Sex: 79 / M Date of Service: 10/16/24 Loc: ED Accession Number: [id number] Procedure: CT abdomen pelvis wo con Ordering Provider: Reid Cook MD PROCEDURE: CT ABDOMEN PELVIS WO CON INDICATIONS: UTI, low BP, creat, eval for obst TECHNIQUE: Axial sections were acquired from the lung bases to the pubic symphysis. Coronal and sagittal reformats were performed. For radiation dose reduction, the following was used: automated exposure control, adjustment of mA and/or kV according to patient size. COMPARISON: [facility], CT, CT ABDOMEN PELVIS W CON, 09/11/2024, 0:49. FINDINGS: Image quality: Diagnostic. Lower Chest: Right lower lobe pulmonary nodule measuring 0.5 cm. URINARY: Right Kidney: No stones or hydronephrosis. Right Ureter: No hydroureter. Left Kidney: No hydronephrosis. Possible small nonobstructing kidney stone measuring 0.4 cm. Left Ureter: No hydroureter. Distal renal arterial vascular calcifications. Bladder: Normal wall thickness. No stones. ABDOMEN: Liver: No contour-deforming solid mass. Gallbladder: No radiopaque gallstones or wall thickening. Biliary ducts: No biliary dilation. Pancreas: No ductal dilation. Spleen: Size is within normal limits. Adrenal Glands: No adrenal nodules. Stomach and Bowel: Normal colonic caliber, without significant wall thickening. Visualized portions of the appendix are not dilated. No small bowel obstruction. Peritoneum: No abnormal intraperitoneal fluid. No free air. Ventral Wall: No hernia. Abdominal Nodes: No enlarged retroperitoneal or mesenteric lymph nodes. Vessels: Abdominal aortic aneurysm measuring 4.3 cm, (4/46), unchanged. PELVIS: Pelvic Organs: Unremarkable. Pelvic Nodes: Unremarkable. Miscellaneous: No inguinal hernias are seen. Bones: No suspicious osseous lesion. Left hip screw fixation. Prior right inferior pubic ramus fracture. Bones appear osteopenic. L3 mild compression fracture. T12 severe compression fracture. Unchanged. IMPRESSION: 1. No hydronephrosis. Small nonobstructing left kidney stone is unchanged. 2. No bladder stone. No free fluid. 3. AAA measuring 4.3 cm is unchanged. Dictated by: Jake Buckley M.D. on 10/17/2024 at 0:29 Approved by: Jake Buckley M.D. on 10/17/2024 at 0:36 Chest x-ray: Radiologist's Impression: [address] [address] XRay Report Signed Patient: Yazan Anderson MR#: [id number] : 1945 Acct:[id number] Age/Sex: 79 / M Date of Service: 10/17/24 Loc: ED Accession Number: [id number] Procedure: XR chest 1V Ordering Provider: Reid Cook MD PROCEDURE: XR CHEST 1V INDICATIONS: dyspnea TECHNIQUE: One view of the chest was acquired. COMPARISON: [facility], CR, XR CHEST 1V, 09/11/2024, 10:11. [facility], CR, XR CHEST 1V, 09/11/2024, 0:13. FINDINGS: Surgical changes and devices: None. Lungs and pleura: Lungs appear clear. No pleural effusions or pneumothorax. Mediastinum: Mediastinal contours appear unchanged. Heart size is within normal limits. Bones and chest wall: No suspicious bony lesions. Prior right clavicle fracture. Prior left-sided rib fractures. Overlying soft tissues appear unremarkable. IMPRESSION: No acute cardiopulmonary abnormality is seen. Dictated by: Jake Buckley M.D. on 10/17/2024 at 1:08 Approved by: Jake Buckley M.D. on 10/17/2024 at 1:09 ECG Data Attestation: I personally reviewed and interpreted this ECG as follows: Interpretation: Sinus bradycardia with rate of 59. Right bundle branch block noted. FL 134, QRS 130, QTC 411. MDM Narrative Medical decision making narrative: 79-year-old male with history of urinary tract infection, resistant, was treated with ertapenem, last antibiotics couple of weeks ago, now with generalized weakness, some back discomfort, concern for possible urine infection, also has chronic diarrhea recently worsened, no black or red stools. Decreased oral intake. Screening labs sent. IV fluid bolus. Low blood pressure noted. No fever on triage. White blood cell count not elevated, lactate normal. IV fluid infusing. Elevated BUN and creatinine. Possible dehydration. CT abdomen and pelvis noncontrast scan ordered. Urinalysis eventually obtained, suspicious for infection. Urine culture. Blood cultures. Records review: Microbiology review. Blood cultures from 09/13/2024 no growth. Urine culture from 09/13/2024 showed E coli that was sensitive to amikacin, cefepime T10, cefoxitin, ertapenem, imipenem, meropenem, Zosyn. Resistant to ampicillin, ampicillin/sulbactam, aztreonam, cefepime, cefotaxime, ceftazidime, ceftriaxone, cefuroxime, ciprofloxacin, gentamicin, levofloxacin, tetracycline, tobramycin, Bactrim. Initial order for ceftriaxone canceled, resistant recent E coli UTI noted from last month, multidrug resistant. Will give IV ertapenem. IV fluids infusing, we will check BUN and creatinine to see if improving. CT results pending. CT abdomen and pelvis noncontrast, shows no obstructing stone in ureters, no perinephric stranding, nonobstructing stone in unilateral kidney noted, AAA noted was unchanged. See radiology report. Repeat BMP shows some decreased in BUN and creatinine. Variable blood pressures with systolic 80s, into the 100s. Peripheral norepinephrine started. Norepinephrine responsive with peripheral line, verbal consent for central line. Right IJ placed, see procedure note, ports aspirate, good position on post placement chest x-ray, no pneumothorax, norepinephrine transition from peripheral onto central line. Adequate blood pressure on peripheral pressors low dose at this time. Admit to hospitalist, we will contact. Case discussed with hospitalist Dr. Brumfield who accepts patient for admission to inpatient. Critical Care Time Critical Care Time Critical Care Time: Yes Total Critical Care Time: 35 Attestation: The high probability of a clinically significant, sudden or life threatening deterioration of the [cardiopulmonary, abdominopelvic, genitourinary] system(s) required my full and direct attention, intervention and personal management. The aggregate critical care time was [35] minutes. This time is in addition to time spent performing reported procedures but includes the following: [x] Data Review and interpretation [x] Patient assessment and monitoring of vital signs [x] Documentation [x] Medication orders and management Discharge Plan Departure Patient Disposition: Admitted As Inpatient Clinical Impression: Urinary tract infection, Septic shock, ERVIN (acute kidney injury) Admit Date/Time: 10/17/24 04:07 Admit Provider: Cristian Brumfield
[2024-10-16] MEDS: LACTATED RINGERS 1,000 ML 1000 ML IV (21:53)
[2024-10-16 21:55] LABS: Bacteria Urine Moderate (10-30); RBC Urine 0-1/HPF (0-5/HPF); Squamous Epithelial Cell Urine 0-1 /HPF (0-5/HPF); Urine Volume 10mL (spun); WBC Urine >100/HPF (0-5/HPF)
[2024-10-16 21:56] LABS: Hyaline Casts Urine 0-1/LPF
[2024-10-16 21:59] LABS: Lactate (Lactic Acid) 0.8 mmol/L (0.7-2.1)
--- NOTE | 2024-10-16 22:19 | DI.CT.S_ITS ---
PROCEDURE: CT ABDOMEN PELVIS WO CON INDICATIONS: UTI, low BP, creat, eval for obst TECHNIQUE: Axial sections were acquired from the lung bases to the pubic symphysis. Coronal and sagittal reformats were performed. For radiation dose reduction, the following was used: automated exposure control, adjustment of mA and/or kV according to patient size. COMPARISON: [facility], CT, CT ABDOMEN PELVIS W CON, 09/11/2024, 0:49. FINDINGS: Image quality: Diagnostic. Lower Chest: Right lower lobe pulmonary nodule measuring 0.5 cm. URINARY: Right Kidney: No stones or hydronephrosis. Right Ureter: No hydroureter. Left Kidney: No hydronephrosis. Possible small nonobstructing kidney stone measuring 0.4 cm. Left Ureter: No hydroureter. Distal renal arterial vascular calcifications. Bladder: Normal wall thickness. No stones. ABDOMEN: Liver: No contour-deforming solid mass. Gallbladder: No radiopaque gallstones or wall thickening. Biliary ducts: No biliary dilation. Pancreas: No ductal dilation. Spleen: Size is within normal limits. Adrenal Glands: No adrenal nodules. Stomach and Bowel: Normal colonic caliber, without significant wall thickening. Visualized portions of the appendix are not dilated. No small bowel obstruction. Peritoneum: No abnormal intraperitoneal fluid. No free air. Ventral Wall: No hernia. Abdominal Nodes: No enlarged retroperitoneal or mesenteric lymph nodes. Vessels: Abdominal aortic aneurysm measuring 4.3 cm, (4/46), unchanged. PELVIS: Pelvic Organs: Unremarkable. Pelvic Nodes: Unremarkable. Miscellaneous: No inguinal hernias are seen. Bones: No suspicious osseous lesion. Left hip screw fixation. Prior right inferior pubic ramus fracture. Bones appear osteopenic. L3 mild compression fracture. T12 severe compression fracture. Unchanged. IMPRESSION: 1. No hydronephrosis. Small nonobstructing left kidney stone is unchanged. 2. No bladder stone. No free fluid. 3. AAA measuring 4.3 cm is unchanged. Dictated by: Jake Buckley M.D. on 10/17/2024 at 0:29 Approved by: Jake Buckley M.D. on 10/17/2024 at 0:36
[2024-10-16 22:59] LABS: BUN Creatinine Ratio 20.1 (6-22); Blood Urea Nitrogen 63 mg/dL (9-20); Carbon Dioxide 11 mmol/L (22-32); Chloride 113 mmol/L (98-107); Estimated Glomerular Filt Rate 20 mL/min (>60); HEMOLYSIS < 15 (0-50); Sodium 135 mmol/L (137-145)
[2024-10-16 23:00] LABS: Calcium 7.1 mg/dL (8.4-10.2); Glucose 85 mg/dL (70-99)
[2024-10-16] MEDS: ERTAPENEM 1 GM in SODIUM CHLORIDE 0.9% 100 ML IV (23:08)
[2024-10-16 23:16] LABS: Procalcitonin 175 ng/mL (<0.5)
[2024-10-17] VITALS (56 sets, daily range): BP systolic 79–144; BP diastolic 50–89; PULSE 46–117; RESP 17–33; TEMP 36.6–37.1; O2SAT 93–100; BMI 18.6
--- NOTE | 2024-10-17 00:09 | DI.RAD.S_ITS ---
PROCEDURE: XR CHEST 1V INDICATIONS: dyspnea TECHNIQUE: One view of the chest was acquired. COMPARISON: [facility], CR, XR CHEST 1V, 09/11/2024, 10:11. [facility], CR, XR CHEST 1V, 09/11/2024, 0:13. FINDINGS: Surgical changes and devices: None. Lungs and pleura: Lungs appear clear. No pleural effusions or pneumothorax. Mediastinum: Mediastinal contours appear unchanged. Heart size is within normal limits. Bones and chest wall: No suspicious bony lesions. Prior right clavicle fracture. Prior left-sided rib fractures. Overlying soft tissues appear unremarkable. IMPRESSION: No acute cardiopulmonary abnormality is seen. Dictated by: Jake Buckley M.D. on 10/17/2024 at 1:08 Approved by: Jake Buckley M.D. on 10/17/2024 at 1:09
[2024-10-17] MEDS: NOREPINEPHRINE BITARTRATE/D5W 4 MG/250 ML PLAST..BAG 20.905 MG IV (00:17)
--- NOTE | 2024-10-17 00:27 | PC.NURSE ---
Pt presents w/worsening hypotension during this ED visit. Concerns were brought up to ED provider regarding course of treatment after pt received 3L bolus w/known CHF Hx. Upon further discussion of possible interventions pt states to this RN he is a DNR. Pt's daughter is bedside and confirms they have talked about comfort measures and that he does not want to be intubated or chest compressions. MD is notified. No POLST form found in pt's chart. MD is aware. Pt is currently receiving norepi peripherally for pressure support. Pt declined provider's recommendation for central line. Pt states if BP is unresponsive to fluids or medications to just let me go.
--- NOTE | 2024-10-17 03:54 | DI.RAD.S_ITS ---
PROCEDURE: XR CHEST 1V INDICATIONS: post RIJV CL placement TECHNIQUE: One view of the chest was acquired. COMPARISON: [facility], CR, XR CHEST 1V, 10/17/2024, 0:19. [facility], CR, XR CHEST 1V, 09/11/2024, 10:11. FINDINGS: Surgical changes and devices: Right central venous catheter with tip projecting over the superior vena cava Lungs and pleura: Lungs are clear. No pleural effusions or pneumothorax. Mediastinum: Mediastinal contours appear normal. Heart size is normal. Bones and chest wall: No suspicious bony lesions. Overlying soft tissues appear unremarkable. IMPRESSION: Right central venous catheter with tip projecting over the superior vena cava. No acute cardiopulmonary abnormality is seen. Findings are concordant with preliminary interpretation provided by [facility]. Dictated by: Kush Mccann M.D. on 10/17/2024 at 8:07 Approved by: Kush Mccann M.D. on 10/17/2024 at 8:08
[2024-10-17] MEDS: LACTATED RINGERS 1,000 ML 125 ML IV (04:11)
[2024-10-17] MEDS: HYDROMORPHONE 0.5 MG INJ IV (04:15)
--- NOTE | 2024-10-17 04:19 | PM.HP.1 ---
History of Present Illness History of Present Illness Chief complaint: Mid back pain, N/V Narrative: 79-year-old male with past medical history of recurrent urinary tract infection, hypertension, hyperlipidemia, BPH and asthma presents with complaint of generalized weakness, nausea, vomiting diarrhea. The patient's report of the last few days, the patient has been having increased generalized weakness with nausea, vomiting and diarrhea. The patient was treated with antibiotic 2 weeks ago for UTI. The patient otherwise denies any fever, chill, chest pain, Praveen pain, syncope or shortness of air. The emergency room, the patient was hypotensive requiring 3 L of IV fluid bolus. The patient UA was positive for UTI. Serum WBC was 12 but lactate was normal. The patient previous urine culture shows multidrug-resistant E. coli. The patient was given ertapenem and a central line was placed as agreeable by the patient. Levophed was started. The patient was saturating well on room air. The patient clearly stated that he is DNR/DNI but is okay for central line and pressors for now. Lipase was 700 though the patient denies any abdominal pain. CT abdomen shows no meals or signs of acute pancreatitis. [facility] Medical History Claudication of both lower extremities COPD (chronic obstructive pulmonary disease) Hyperlipidemia CAD (coronary artery disease) HTN (hypertension) Surgical History History of heart artery stent Social History household members: none Smoking Status: Current every day smoker alcohol intake: current Meds Home Medications and Allergies Home Medications Medication Instructions Recorded Confirmed Type ascorbic acid (vitamin C) 500 mg 500 mg PO BID #60 tabs 06/25/21 10/16/24 Rx tablet (Vitamin C) cyanocobalamin (vitamin B-12) 100 100 mcg PO DAILY #60 tabs 06/25/21 10/16/24 Rx mcg tablet (Vitamin B-12) lisinopril 10 mg tablet 20 mg (2 x 10 mg) PO QDAY #90 tabs 08/18/22 10/16/24 Rx albuterol sulfate 90 mcg/actuation 2 puff inhalation Q4-6H PRN sob 07/30/24 10/16/24 History aerosol inhaler carvedilol 3.125 mg tablet 3.125 mg PO BID 07/30/24 10/16/24 History furosemide 20 mg tablet 20 mg PO BID 07/30/24 10/16/24 History midodrine 2.5 mg tablet 2.5 mg PO TID 07/30/24 10/16/24 History mirtazapine 7.5 mg tablet 7.5 mg PO BEDTIME 07/30/24 10/16/24 History oqrzgdxsoktl-savtrcsn-bkcayk tablet 1 tab PO DAILY 07/30/24 10/16/24 History omeprazole 40 mg capsule,delayed 40 mg PO DAILY 07/30/24 10/16/24 History release potassium chloride 20 mEq 20 meq PO DAILY 07/30/24 10/16/24 History tablet,extended release atorvastatin 80 mg tablet 80 mg PO DAILY 09/20/24 10/16/24 History magnesium chloride 64 mg 64 mg PO TID 09/20/24 10/16/24 History (magnesium chloride) tablet,delayed release tamsulosin 0.4 mg capsule 0.4 PO DAILY 10/16/24 History Allergies Allergy/AdvReac Type Severity Reaction Status Date / Time lactose AdvReac Unknown Gastrointestinal Verified 09/12/24 16:21 Upset Review of Systems Review of Systems ROS: Yes All systems reviewed with the patient and are negative except as otherwise documented Exam Vital Signs (past 8 hours): - 10/16/24 20:20 10/16/24 20:30 10/16/24 20:30 Temperature 98.5 F Pulse Rate 71 84 Respiratory Rate 20 Blood Pressure 92/54 L 88/51 L Pulse Oximetry 98 99 Oxygen Delivery Method Room Air 10/16/24 20:33 10/16/24 20:33 10/16/24 20:36 Temperature Pulse Rate 71 78 Respiratory Rate Blood Pressure 75/48 L Pulse Oximetry 81 L 99 Oxygen Delivery Method 10/16/24 20:36 10/16/24 20:50 10/16/24 20:50 Temperature Pulse Rate 66 Respiratory Rate Blood Pressure 86/53 L 87/54 L Pulse Oximetry 99 Oxygen Delivery Method 10/16/24 21:00 10/16/24 21:00 10/16/24 21:10 Temperature Pulse Rate 90 Respiratory Rate 19 Blood Pressure 81/50 L 85/53 L Pulse Oximetry 100 Oxygen Delivery Method 10/16/24 21:10 10/16/24 21:22 10/16/24 21:22 Temperature Pulse Rate 69 86 Respiratory Rate 25 H 22 Blood Pressure 76/52 L Pulse Oximetry 100 98 Oxygen Delivery Method 10/16/24 21:25 10/16/24 21:25 10/16/24 21:30 Temperature Pulse Rate 91 H Respiratory Rate 19 Blood Pressure 83/47 L 97/52 L Pulse Oximetry 100 Oxygen Delivery Method 10/16/24 21:30 10/16/24 21:40 10/16/24 21:40 Temperature Pulse Rate 92 H 66 Respiratory Rate 24 23 Blood Pressure 92/60 Pulse Oximetry 100 96 Oxygen Delivery Method 10/16/24 21:45 10/16/24 21:45 10/16/24 21:50 Temperature Pulse Rate 77 88 Respiratory Rate 21 18 Blood Pressure 83/54 L Pulse Oximetry 92 98 Oxygen Delivery Method 10/16/24 21:50 10/16/24 21:55 10/16/24 21:55 Temperature Pulse Rate 89 Respiratory Rate 23 Blood Pressure 84/57 L 85/48 L Pulse Oximetry 97 Oxygen Delivery Method 10/16/24 22:00 10/16/24 22:00 10/16/24 22:05 Temperature Pulse Rate 87 86 Respiratory Rate 16 13 Blood Pressure 90/52 L Pulse Oximetry 98 97 Oxygen Delivery Method 10/16/24 22:05 10/16/24 22:10 10/16/24 22:10 Temperature Pulse Rate 64 Respiratory Rate 20 Blood Pressure 85/52 L 79/49 L Pulse Oximetry 98 Oxygen Delivery Method 10/16/24 22:30 10/16/24 22:52 10/16/24 22:52 Temperature Pulse Rate 72 52 L Respiratory Rate 21 24 Blood Pressure 94/51 L Pulse Oximetry 100 94 Oxygen Delivery Method 10/16/24 23:02 10/16/24 23:03 10/16/24 23:03 Temperature Pulse Rate 73 61 Respiratory Rate 28 H 22 Blood Pressure 97/52 L Pulse Oximetry 93 96 Oxygen Delivery Method 10/16/24 23:05 10/16/24 23:05 10/16/24 23:11 Temperature Pulse Rate 84 Respiratory Rate 19 Blood Pressure 105/57 L 104/59 L Pulse Oximetry 99 Oxygen Delivery Method 10/16/24 23:11 10/16/24 23:20 10/16/24 23:20 Temperature Pulse Rate 87 82 Respiratory Rate 17 24 Blood Pressure 120/55 L Pulse Oximetry 99 99 Oxygen Delivery Method 10/16/24 23:30 10/16/24 23:30 10/16/24 23:40 Temperature Pulse Rate 79 Respiratory Rate 18 Blood Pressure 87/48 L 88/52 L Pulse Oximetry 99 Oxygen Delivery Method 10/16/24 23:40 10/16/24 23:50 10/16/24 23:50 Temperature Pulse Rate 62 82 Respiratory Rate 19 15 Blood Pressure 90/53 L Pulse Oximetry 100 98 Oxygen Delivery Method 10/17/24 00:00 10/17/24 00:00 10/17/24 00:10 Temperature Pulse Rate 92 H Respiratory Rate 17 Blood Pressure 83/51 L 87/50 L Pulse Oximetry 97 Oxygen Delivery Method 10/17/24 00:10 10/17/24 00:25 10/17/24 00:25 Temperature Pulse Rate 91 H 46 L Respiratory Rate 18 17 Blood Pressure 144/60 H Pulse Oximetry 97 98 Oxygen Delivery Method 10/17/24 00:30 10/17/24 00:30 10/17/24 00:34 Temperature Pulse Rate 57 L 54 L Respiratory Rate 22 20 Blood Pressure 106/51 L Pulse Oximetry 98 99 Oxygen Delivery Method 10/17/24 00:35 Temperature Pulse Rate Respiratory Rate Blood Pressure 108/56 L Pulse Oximetry Oxygen Delivery Method Oxygen Delivery Method Room Air Narrative Exam Narrative: Physical Exam: GENERAL: The patient is not in any acute distressed. Awake and alert. HEENT: Nonicteric sclerae, PERRLA, EOMI. Oropharynx clear. Moist mucous membranes. Conjunctivae appear well perfused. HEART: Regular rate and rhythm without murmurs. No lower extremities edema. LUNGS: Clear to auscultation bilaterally. No wheezing, crackles or rhonchi ABDOMEN: Soft, positive bowel sounds, nontender. SKIN: No rash, no excessive bruising, petechiae, or purpura. NEUROLOGIC: AxO x 3. Cranial nerves II-XII intact without motor/sensory deficit. Objective Labs 10/16/24 20:25 10/16/24 22:37 Labs: Laboratory Results - last 24 hr 10/16/24 10/16/24 10/16/24 20: 21:37 22:37 WBC 12.8 H RBC 2.91 L Hgb 9.3 L Hct 27.5 L MCV 94.6 MCH 32.1 MCHC 34.0 RDW 22.2 H Plt Count 149 L Neut % (Auto) 83.6 H Lymph % (Auto) 8.3 L [place] % (Auto) 5.7 Eos % (Auto) 1.6 L Baso % (Auto) 0.8 Neut # (Auto) 47098 H Lymph # (Auto) 1100 [place] # (Auto) 700 Eos # (Auto) 200 Baso # (Auto) 100 Nucleated RBCs Cancelled Hypersegmented Neuts Cancelled Hypogranular Neuts Cancelled Reactive Lymphocytes Cancelled Smudge Cells Cancelled Other Cell Type Cancelled Toxic Granulation Cancelled Toxic Vacuolation Cancelled Dohle Bodies Cancelled Blair Rods Cancelled WBC Morphology Comment Cancelled Platelet Estimate Cancelled Clumped Platelets Cancelled Plt Morphology Comment Cancelled RBC Morphology Cancelled Dimorphic RBCs Cancelled Polychromasia Cancelled Hypochromasia Cancelled Poikilocytosis Cancelled Basophilic Stippling Cancelled Anisocytosis Cancelled Microcytosis Cancelled Macrocytosis Cancelled Spherocytes Cancelled Pappenheimer Bodies Cancelled Sickle Cells Cancelled Target Cells Cancelled Tear Drop Cells Cancelled Ovalocytes Cancelled Stomatocytes Cancelled Helmet Cells Cancelled Rogers-Hospers Bodies Cancelled [place] Rings Cancelled Dexter Cells Cancelled Acanthocytes (Spur) Cancelled Rouleaux Cancelled Schistocytes Cancelled Sodium 132 L 135 L Potassium 5.2 H 5.0 Chloride 108 H 113 H Carbon Dioxide 12 L 11 L BUN 70 H 63 H Creatinine 3.70 H 3.13 H Estimated GFR 16 L 20 L BUN/Creatinine Ratio 18.9 20.1 Glucose 105 H 85 Lactate 0.8 Calcium 7.9 L 7.1 L Total Bilirubin 0.5 AST 32 ALT 25 Alkaline Phosphatase 68 Total Protein 5.9 L Albumin 3.3 L Globulin 2.6 Albumin/Globulin Ratio 1.3 Lipase 744 H Procalcitonin 175 H Urine RBC 0-1/hpf Urine WBC >100/hpf H Ur Squamous Epith Cells 0-1 /hpf Urine Bacteria Moderate (10-30) H Hyaline Casts 0-1/lpf Vol Urine Centrifuged 10ml (spun) Assessment & Plan Assessment & Plan narrative: 79-year-old male with past medical history of recurrent urinary tract infection, hypertension, hyperlipidemia, BPH and asthma presents with complaint of generalized weakness, nausea, vomiting diarrhea. The patient's report of the last few days, the patient has been having increased generalized weakness with nausea, vomiting and diarrhea. The patient was treated with antibiotic 2 weeks ago for UTI. The patient otherwise denies any fever, chill, chest pain, Praveen pain, syncope or shortness of air. The emergency room, the patient was hypotensive requiring 3 L of IV fluid bolus. The patient UA was positive for UTI. Serum WBC was 12 but lactate was normal. The patient previous urine culture shows multidrug-resistant E. coli. The patient was given ertapenem and a central line was placed as agreeable by the patient. Levophed was started. The patient was saturating well on room air. The patient clearly stated that he is DNR/DNI but is okay for central line and pressors for now. Lipase was 700 though the patient denies any abdominal pain. CT abdomen shows no meals or signs of acute pancreatitis. Septic shock. Admit the patient to ICU. Continue to treat until infection. Continue IV fluid and Levophed drip. UTI. Previous history of E. coli resistant to cephalosporin continue ertapenem and follow urine culture. Elevated lipase in the 700. The patient denies any abdominal pain. CT scan of the abdomen and pelvis shows no sign of acute pancreatitis. N.p.o. for now. IV fluid.. ERVIN. Creatinine 3.5. Baseline aneurysmal. Monitor renal function IV fluid. Likely from dehydration. Hypertension. Blood pressure medication due to septic shock as above. Hyperlipidemia resume home statin. BPH. Hold Flomax due to low blood pressure. DVT prophylaxis heparin subcu. Status DNR/DNI. Disposition likely home in 3 days. - As the provider of this telehealth evaluation, requested by the patient's evaluating physician, I attest that I introduced myself to the patient, provided my credentials and determined that telemedicine via a real-time, 2 way interactive audio and video platform is an appropriate and effective means of providing this service. - I reviewed the patient's chart and had a discussion with the member of the patient's treatment team. - The patient and I mutually agreed with continuation of this evaluation via telemedicine. The patient consented for the telemedicine evaluation. - This virtual encounter was taken place from [place]. The encounter was approximately 35 minutes. The nurse was present during the entire time of the encounter and was able to move the stethoscope in appropriate directions. The patient was evaluated at [facility]. Time-Based Coding :: [TOTAL MINUTES] spent with patient and on the chart (including review of chart, obtaining history, exam, reviewing outside data, placing orders, documenting exam and treatment plan, and counseling patient) on [DATE].
[2024-10-17] MEDS: NOREPINEPHRINE BITARTRATE/D5W 4 MG/250 ML PLAST..BAG 1.045 MG IV (05:31)
[2024-10-17] MEDS: SODIUM CHLORIDE 0.9% 1,000 ML 75 ML IV (05:36)
--- NOTE | 2024-10-17 08:13 | PC.NURSE ---
Day shift: Pt A&Ox4, fatigued. SBA at bedside to use urinal. Norepinephrine paused at 07:27, BP remains with MAP >65. Pt requested a call to his daughter from this RN to update her, pt daughter updated on pt condition. Call light within reach, pt requesting to continue to rest. Pt able to reposition independently in bed. Bed alarm active. Care ongoing.
[2024-10-17] MEDS: PANTOPRAZOLE DR 40 MG TABLET PO (09:44)
[2024-10-17] MEDS: ATORVASTATIN 20 MG TABLET 80 MG PO (09:44)
[2024-10-17] MEDS: MIDODRINE HCL 5 MG TABLET 2.5 MG PO ×3 (09:44→20:13)
[2024-10-17] MEDS: POTASSIUM CHLORIDE 20 MEQ TAB PO (09:44)
[2024-10-17] MEDS: MAGNESIUM CHLORIDE 64 MG TABLET PO ×2 (09:44→20:12)
[2024-10-17] MEDS: carvediloL 3.125 MG TABLET PO ×2 (09:45→20:13)
--- NOTE | 2024-10-17 10:30 | DIET.CONS ---
Dietary Consultation Note Admission Date: 10/17/2024 04:07 Assessment: 79 y M admitted for septic shock. Dietitian screened for low MNA. Met with pt at bedside. Reports not eating anything for last 3 days d/t N/V/D and weakness. Reports poor PO intakes before then as well d/t UTI, including skipping meals. Hx of multiple hospital admission and pt reporting ongoing low appetite for last 6-12 months. Pt reports appetite is improving today. Hx of severe chronic protein calorie malnutrition. No teeth, still prefers soft and bite sized meals with sauce/gravy. Nutrition focused physical exam: -Moderate muscle mass loss temples, severe muscle mass loss deltoid, pectoralis major, trapezius -Moderate to severe subcutaneous fat loss (buccal and orbital fat pads) Ht: 172.72 cm Wt: 55.747 kg BMI: 18.6 UBW: 54.5 kg on 09/11/24, 56 kg on 07/30/24, during previous admissions pt reported 65 kg 8 months ago. Last BM: 10/17/24 (10/17/24 09:23) MNA: 10 Liborio Score: 19 Diet: 10/17/24 Breakfast General (Regular) Diet Diet Modifications: Food Texture: Level 7 - Regular Liquid Consistency: Level 0 - Thin Labs: RBC 2.91 X10^6/uL (4.5-5.9) L 10/16/24 20:25 Hgb 9.3 g/dL (13.5-17.5) L 10/16/24 20:25 Hct 27.5 % (41-53) L 10/16/24 20:25 Creatinine 3.13 mg/dL (0.66-1.25) H 10/16/24 22:37 Lactate 0.8 mmol/L (0.7-2.1) 10/16/24 20:25 Nutrition Diagnosis: Severe chronic Protein Calorie Malnutrition r/t inadequate oral intake as evidenced by <50% of estimated energy intake >6 months per diet recall, moderate to severe muscle mass wasting and subcutaneous fat loss, BMI underweight for age (18.6). Interventions: Doesn't tolerate regular ensure, Ensure clear TID Meals adjusted to soft and bite sized with sauces/gravy EER: 1700 kcals (30 kcals/kg per BMI) 85 g protein (1.5 g/kg per PCM, sepsis) Monitoring/Evaluations: po intakes, diet tolerance Electronically Signed by: Roxane Reyna 10/17/24 10:30 Clinical Dietitian [address] [id number]
[2024-10-17 10:33] LABS: Acinetobacter calcoa-baumannii Not Detected (Not Detect); Bacteroides fragilis Not Detected (Not Detect); CTX-M Resistance Detected (Not Detect); Candida albicans Not Detected (Not Detect); Candida auris Not Detected (Not Detect); Candida glabrata Not Detected (Not Detect); Candida krusei Not Detected (Not Detect); Candida parapsilosis Not Detected (Not Detect); Candida tropicalis Not Detected (Not Detect); Cryptococcus neoformans/gatti Not Detected (Not Detect); Enterobacter cloacae complex Not Detected (Not Detect); Enterobacterales Detected (Not Detect); Enterococcus faecalis Not Detected (Not Detect); Enterococcus faecium Not Detected (Not Detect); Haemophilus influenzae Not Detected (Not Detect); IMP Resistance Not Detected (Not Detect); KPC Resistance Not Detected (Not Detect); Klebsiella aerogenes Not Detected (Not Detect); Listeria monocytogenes Not Detected (Not Detect); NDM Resistance Not Detected (Not Detect); Neisseria meningitidis Not Detected (Not Detect); OXA-48-like Resistance Not Detected (Not Detect); Proteus species Not Detected (Not Detect); Pseudomonas aeruginosa Not Detected (Not Detect); Salmonella species Not Detected (Not Detect); Serratia marcescens Not Detected (Not Detect); Staphylococcus epidermidis Not Detected (Not Detect); Staphylococcus lugdunensis Not Detected (Not Detect); Staphylococcus species Not Detected (Not Detect); Stenotrophomonas maltophilia Not Detected (Not Detect); Streptococcus agalactiae (Gr B Not Detected (Not Detect); Streptococcus pneumonia Not Detected (Not Detect); Streptococcus pyogenes (Gr A) Not Detected (Not Detect); Streptococcus species Not Detected (Not Detect); VIM Resistance Not Detected (Not Detect); mcr-1 Resistance Not Detected (Not Detect)
[2024-10-17 10:54] LABS: Adenovirus F 40/41 Not Detected (Not Detect); Astrovirus Not Detected (Not Detect); Campylobacter Not Detected (Not Detect); Clostridium difficile toxin AB Not Detected (Not Detect); Cryptosporidium Not Detected (Not Detect); Cyclospora cayetanensis Not Detected (Not Detect); Entamoeba histolytica Not Detected (Not Detect); Enteroaggregative E.coli Not Detected (Not Detect); Enteropathogenic E.coli Not Detected (Not Detect); Enterotoxigenic E.coli It/st Not Detected (Not Detect); Giardia lamblia Not Detected (Not Detect); Norovirus GI/GII Detected (Not Detect); Plesiomonsa shigelloides Not Detected (Not Detect); Rotavirus A Not Detected (Not Detect); Salmonella Not Detected (Not Detect); Sapovirus Not Detected (Not Detect); Shiga-like toxin-prod E.coli Not Detected (Not Detect); Shigella/Enteroinvasive E.coli Not Detected (Not Detect); Vibrio Not Detected (Not Detect); Vibrio cholerae Not Detected (Not Detect); Yersinia enterocolitica Not Detected (Not Detect)
--- NOTE | 2024-10-17 13:23 | PM.HP.1 ---
History of Present Illness History of Present Illness Date Patient Seen: 10/17/24 Time Patient Seen: 08:30 Chief complaint: Mid back pain, N/V Narrative: Per overnight provider, 79-year-old male with past medical history of recurrent urinary tract infection, hypertension, hyperlipidemia, BPH and asthma presents with complaint of generalized weakness, nausea, vomiting diarrhea. The patient's report of the last few days, the patient has been having increased generalized weakness with nausea, vomiting and diarrhea. The patient was treated with antibiotic 2 weeks ago for UTI. The patient otherwise denies any fever, chill, chest pain, Praveen pain, syncope or shortness of air. The emergency room, the patient was hypotensive requiring 3 L of IV fluid bolus. The patient UA was positive for UTI. Serum WBC was 12 but lactate was normal. The patient previous urine culture shows multidrug-resistant E. coli. The patient was given ertapenem and a central line was placed as agreeable by the patient. Levophed was started. The patient was saturating well on room air. The patient clearly stated that he is DNR/DNI but is okay for central line and pressors for now. Lipase was 700 though the patient denies any abdominal pain. CT abdomen shows no meals or signs of acute pancreatitis. Interval history: blood culture positive for gram negative organisms, likely ESBL based on PCR. Discussed with ID physician as noted below. [facility] Medical History Claudication of both lower extremities COPD (chronic obstructive pulmonary disease) Hyperlipidemia CAD (coronary artery disease) HTN (hypertension) Surgical History History of heart artery stent Social History household members: none Smoking Status: Current every day smoker alcohol intake: current Meds Home Medications and Allergies Home Medications Medication Instructions Recorded Confirmed Type ascorbic acid (vitamin C) 500 mg 500 mg PO BID #60 tabs 06/25/21 10/16/24 Rx tablet (Vitamin C) cyanocobalamin (vitamin B-12) 100 100 mcg PO DAILY #60 tabs 06/25/21 10/16/24 Rx mcg tablet (Vitamin B-12) lisinopril 10 mg tablet 20 mg (2 x 10 mg) PO QDAY #90 tabs 08/18/22 10/16/24 Rx albuterol sulfate 90 mcg/actuation 2 puff inhalation Q4-6H PRN sob 07/30/24 10/16/24 History aerosol inhaler carvedilol 3.125 mg tablet 3.125 mg PO BID 07/30/24 10/16/24 History furosemide 20 mg tablet 20 mg PO BID 07/30/24 10/16/24 History midodrine 2.5 mg tablet 2.5 mg PO TID 07/30/24 10/16/24 History mirtazapine 7.5 mg tablet 7.5 mg PO BEDTIME 07/30/24 10/16/24 History lpfkmucjgmhq-bwvyvuye-cbmjvu tablet 1 tab PO DAILY 07/30/24 10/16/24 History omeprazole 40 mg capsule,delayed 40 mg PO DAILY 07/30/24 10/16/24 History release potassium chloride 20 mEq 20 meq PO DAILY 07/30/24 10/16/24 History tablet,extended release atorvastatin 80 mg tablet 80 mg PO DAILY 09/20/24 10/16/24 History magnesium chloride 64 mg 64 mg PO TID 09/20/24 10/16/24 History (magnesium chloride) tablet,delayed release tamsulosin 0.4 mg capsule 0.4 PO DAILY 10/16/24 History Allergies Allergy/AdvReac Type Severity Reaction Status Date / Time lactose AdvReac Unknown Gastrointestinal Verified 09/12/24 16:21 Upset Review of Systems Review of Systems Narrative: All other systems reviewed with the patient and are negative unless otherwise stated. Exam Vital Signs (past 8 hours): - 10/17/24 05:40 10/17/24 05:40 10/17/24 06:08 Temperature 98.7 F Pulse Rate 97 H 98 H 71 Respiratory Rate 19 18 18 Blood Pressure 122/60 102/57 L Pulse Oximetry 96 96 98 Oxygen Delivery Method Oxygen Flow Rate 10/17/24 06:15 10/17/24 06:30 10/17/24 07:00 Temperature Pulse Rate 64 92 H 97 H Respiratory Rate 19 18 18 Blood Pressure 112/58 L 115/59 L 124/66 Pulse Oximetry 99 98 97 Oxygen Delivery Method Oxygen Flow Rate 10/17/24 07:00 10/17/24 07:03 10/17/24 07:19 Temperature Pulse Rate 94 H 98 H Respiratory Rate 20 20 Blood Pressure 117/62 Pulse Oximetry 98 96 Oxygen Delivery Method Oxygen Flow Rate 0 10/17/24 07:30 10/17/24 07:30 10/17/24 07:45 Temperature Pulse Rate 101 H 99 H Respiratory Rate 21 20 Blood Pressure 98/53 L Pulse Oximetry 96 97 Oxygen Delivery Method Oxygen Flow Rate 10/17/24 07:45 10/17/24 08:00 10/17/24 08:00 Temperature Pulse Rate Respiratory Rate Blood Pressure 109/59 L Pulse Oximetry 98 Oxygen Delivery Method Room Air Oxygen Flow Rate 0 10/17/24 08:00 10/17/24 08:01 10/17/24 08:01 Temperature Pulse Rate 99 H 102 H Respiratory Rate 21 23 Blood Pressure 128/89 Pulse Oximetry 99 100 Oxygen Delivery Method Oxygen Flow Rate 10/17/24 08:15 10/17/24 08:30 10/17/24 08:45 Temperature Pulse Rate 99 H 97 H 96 H Respiratory Rate 22 19 17 Blood Pressure Pulse Oximetry 97 97 97 Oxygen Delivery Method Oxygen Flow Rate 10/17/24 09:00 10/17/24 09:00 10/17/24 09:15 Temperature Pulse Rate 98 H 105 H Respiratory Rate 19 33 H Blood Pressure 118/59 L Pulse Oximetry 98 Oxygen Delivery Method Oxygen Flow Rate 10/17/24 09:30 10/17/24 09:45 10/17/24 09:45 Temperature Pulse Rate 117 H 110 H 107 H Respiratory Rate 30 H 23 Blood Pressure 118/59 L Pulse Oximetry Oxygen Delivery Method Oxygen Flow Rate 10/17/24 10:00 10/17/24 10:00 10/17/24 10:15 Temperature Pulse Rate 105 H 101 H Respiratory Rate 22 21 Blood Pressure 113/57 L Pulse Oximetry Oxygen Delivery Method Oxygen Flow Rate 10/17/24 10:30 Temperature Pulse Rate 100 H Respiratory Rate 21 Blood Pressure Pulse Oximetry Oxygen Delivery Method Oxygen Flow Rate Oxygen Delivery Method Room Air Oxygen Flow Rate 0 Narrative Exam Narrative: NAD, alert and oriented. Fluent speech. Lungs are somewhat wheezy, normal rate and effort. Heart is regular, no murmur gallop or rub. Abdomen is soft, non distended. Extremities are free of edema. Objective Labs 10/16/24 20:25 10/16/24 22:37 Labs: Laboratory Results - last 24 hr 10/16/24 10/16/24 10/16/24 20:25 21:37 22:37 WBC 12.8 H RBC 2.91 L Hgb 9.3 L Hct 27.5 L MCV 94.6 MCH 32.1 MCHC 34.0 RDW 22.2 H Plt Count 149 L Neut % (Auto) 83.6 H Lymph % (Auto) 8.[address] [place] % (Auto) 5.7 Eos % (Auto) 1.6 L Baso % (Auto) 0.8 Neut # (Auto) 96264 H Lymph # (Auto) 1100 [place] # (Auto) 700 Eos # (Auto) 200 Baso # (Auto) 100 Nucleated RBCs Cancelled Hypersegmented Neuts Cancelled Hypogranular Neuts Cancelled Reactive Lymphocytes Cancelled Smudge Cells Cancelled Other Cell Type Cancelled Toxic Granulation Cancelled Toxic Vacuolation Cancelled Dohle Bodies Cancelled Blair Rods Cancelled WBC Morphology Comment Cancelled Platelet Estimate Cancelled Clumped Platelets Cancelled Plt Morphology Comment Cancelled RBC Morphology Cancelled Dimorphic RBCs Cancelled Polychromasia Cancelled Hypochromasia Cancelled Poikilocytosis Cancelled Basophilic Stippling Cancelled Anisocytosis Cancelled Microcytosis Cancelled Macrocytosis Cancelled Spherocytes Cancelled Pappenheimer Bodies Cancelled Sickle Cells Cancelled Target Cells Cancelled Tear Drop Cells Cancelled Ovalocytes Cancelled Stomatocytes Cancelled Helmet Cells Cancelled Rogers-Ragan Bodies Cancelled [place] Rings Cancelled [place] Cells Cancelled Acanthocytes (Spur) Cancelled Rouleaux Cancelled Schistocytes Cancelled Sodium 132 L 135 L Potassium 5.2 H 5.0 Chloride 108 H 113 H Carbon Dioxide 12 L 11 L BUN 70 H 63 H Creatinine 3.70 H 3.13 H Estimated GFR 16 L 20 L BUN/Creatinine Ratio 18.9 20.1 Glucose 105 H 85 Lactate 0.8 Calcium 7.9 L 7.1 L Total Bilirubin 0.5 AST 32 ALT 25 Alkaline Phosphatase 68 Total Protein 5.9 L Albumin 3.3 L Globulin 2.6 Albumin/Globulin Ratio 1.3 Lipase 744 H Procalcitonin 175 H Urine RBC 0-1/hpf Urine WBC >100/hpf H Ur Squamous Epith Cells 0-1 /hpf Urine Bacteria Moderate (10-30) H Hyaline Casts 0-1/lpf Vol Urine Centrifuged 10ml (spun) Stl C. cayetanensis PCR Stool Rotavirus (PCR) Stool Adenovirus (PCR) Stool Astrovirus (PCR) Stool Cryptosporidium PCR Stl E.coli Shiga Tox PCR St Sh/Enteroin Ecoli PCR Stl Enterotoxigenic E PCR Stool EPEC (PCR) Stl E. histolytica PCR Stool Giardia Lamblia PCR Stool Sapovirus (PCR) Stl P. shigelloides PCR St Y.enterocolitica PCR Stool Vibrio (PCR) Stl Vibrio cholerae PCR Stl Enteroaggr Ecoli PCR Stl Norovirus GI/GII PCR A.calcoaceticus-baumannii cmplx PCR Not detected Bacteroides fragilis Not detected Campylobacter (PCR) Juliana albicans (PCR) Not detected Juliana auris (PCR) Not detected C. glabrata (PCR) Not detected C. krusei (PCR) Not detected C. parapsilosis (PCR) Not detected C. tropicalis (PCR) Not detected C. difficile Tox (PCR) C. neoform/gattii (PCR) Not detected Enterobacterales (PCR) Detected E. cloacae complex PCR Not detected Enterococc faecalis PCR Not detected Enterococc faecium PCR Not detected E. coli (PCR) Detected H. influenzae (PCR) Not detected Klebsiella aerogenes (PCR) Not detected Klebsiella oxytoca PCR Not detected Klebsiella pneumoniae Not detected List. monocytogenes PCR Not detected N. meningitidis (PCR) Not detected Proteus species (PCR) Not detected Salmonella (PCR) Salmonella spp. (PCR) Not detected Serratia marcescens PCR Not detected Staphylococcus sp PCR Not detected Staph aureus (PCR) Not detected mecA/C & MREJ Resist Gene Not applicable mecA/C-Methicil Resis Gene Not applicable mcr-1 Colistin Res Gene PCR Not detected Staph epidermidis (PCR) Not detected Staph lugdunensis PCR Not detected S. maltophilia (PCR) Not detected Streptococcus sp PCR Not detected Group A Strep (PCR) Not detected Strep agalactiae (PCR) Not detected Strep pneumoniae (PCR) Not detected P. aeruginosa (PCR) Not detected Rebeca/B-Vanco Res Genes Not applicable blaIMP Car res Gene PCR Not detected KPC-Carbap Res Gene PCR Not detected blaNDM Car Res Gene PCR Not detected OXA-48 Carbapenem Resis Gene (PCR) Not detected blaVIM Car Res Gene PCR Not detected CTX-M Gene Resistance (PCR) Detected 10/17/24 09:20 WBC RBC Hgb Hct MCV MCH MCHC RDW Plt Count Neut % (Auto) Lymph % (Auto) [place] % (Auto) Eos % (Auto) Baso % (Auto) Neut # (Auto) Lymph # (Auto) [place] # (Auto) Eos # (Auto) Baso # (Auto) Nucleated RBCs Hypersegmented Neuts Hypogranular Neuts Reactive Lymphocytes Smudge Cells Other Cell Type Toxic Granulation Toxic Vacuolation Dohle Bodies Blair Rods WBC Morphology Comment Platelet Estimate Clumped Platelets Plt Morphology Comment RBC Morphology Dimorphic RBCs Polychromasia Hypochromasia Poikilocytosis Basophilic Stippling Anisocytosis Microcytosis Macrocytosis Spherocytes Pappenheimer Bodies Sickle Cells Target Cells Tear Drop Cells Ovalocytes Stomatocytes Helmet Cells Rogers-Ragan Bodies [place] Rings [place] Cells Acanthocytes (Spur) Rouleaux Schistocytes Sodium Potassium Chloride Carbon Dioxide BUN Creatinine Estimated GFR BUN/Creatinine Ratio Glucose Lactate Calcium Total Bilirubin AST ALT Alkaline Phosphatase Total Protein Albumin Globulin Albumin/Globulin Ratio Lipase Procalcitonin Urine RBC Urine WBC Ur Squamous Epith Cells Urine Bacteria Hyaline Casts Vol Urine Centrifuged Stl C. cayetanensis PCR Not detected Stool Rotavirus (PCR) Not detected Stool Adenovirus (PCR) Not detected Stool Astrovirus (PCR) Not detected Stool Cryptosporidium PCR Not detected Stl E.coli Shiga Tox PCR Not detected St Sh/Enteroin Ecoli PCR Not detected Stl Enterotoxigenic E PCR Not detected Stool EPEC (PCR) Not detected Stl E. histolytica PCR Not detected Stool Giardia Lamblia PCR Not detected Stool Sapovirus (PCR) Not detected Stl P. shigelloides PCR Not detected St Y.enterocolitica PCR Not detected Stool Vibrio (PCR) Not detected Stl Vibrio cholerae PCR Not detected Stl Enteroaggr Ecoli PCR Not detected Stl Norovirus GI/GII PCR Detected A.calcoaceticus-baumannii cmplx PCR Bacteroides fragilis Campylobacter (PCR) Not detected Juliana albicans (PCR) Juliana auris (PCR) C. glabrata (PCR) C. krusei (PCR) C. parapsilosis (PCR) C. tropicalis (PCR) C. difficile Tox (PCR) Not detected C. neoform/gattii (PCR) Enterobacterales (PCR) E. cloacae complex PCR Enterococc faecalis PCR Enterococc faecium PCR E. coli (PCR) H. influenzae (PCR) Klebsiella aerogenes (PCR) Klebsiella oxytoca PCR Klebsiella pneumoniae List. monocytogenes PCR N. meningitidis (PCR) Proteus species (PCR) Salmonella (PCR) Not detected Salmonella spp. (PCR) Serratia marcescens PCR Staphylococcus sp PCR Staph aureus (PCR) mecA/C & MREJ Resist Gene mecA/C-Methicil Resis Gene mcr-1 Colistin Res Gene PCR Staph epidermidis (PCR) Staph lugdunensis PCR S. maltophilia (PCR) Streptococcus sp PCR Group A Strep (PCR) Strep agalactiae (PCR) Strep pneumoniae (PCR) P. aeruginosa (PCR) Rebeca/B-Vanco Res Genes blaIMP Car res Gene PCR KPC-Carbap Res Gene PCR blaNDM Car Res Gene PCR OXA-48 Carbapenem Resis Gene (PCR) blaVIM Car Res Gene PCR CTX-M Gene Resistance (PCR) Assessment & Plan Assessment & Plan narrative: 79-year-old male with past medical history of recurrent urinary tract infection, hypertension, hyperlipidemia, BPH and asthma presents with complaint of generalized weakness, nausea, vomiting diarrhea. The patient's report of the last few days, the patient has been having increased generalized weakness with nausea, vomiting and diarrhea. The patient was treated with antibiotic 2 weeks ago for UTI. The patient otherwise denies any fever, chill, chest pain, Praveen pain, syncope or shortness of air. The emergency room, the patient was hypotensive requiring 3 L of IV fluid bolus. The patient UA was positive for UTI. Serum WBC was 12 but lactate was normal. The patient previous urine culture shows multidrug-resistant E. coli. The patient was given ertapenem and a central line was placed as agreeable by the patient. Levophed was started. The patient was saturating well on room air. The patient clearly stated that he is DNR/DNI but is okay for central line and pressors for now. Lipase was 700 though the patient denies any abdominal pain. CT abdomen shows no meals or signs of acute pancreatitis. 1) Septic shock secondary to E. coli ESBL bacteremia from likely urinary source , presumed prostatitis - - blood culture with likely ESBL E. coli, continue Ertapenem - has recent ESBL course of ertapenem, discussed with outpatient ID physician who recommended change to meropenem as he had elevated LFTs on ertapenem. Recommended 4-6 weeks of IV antibiotics, preferrably at a SNF. Additionally recommends fosfomycin sensitivities from lab if available as plan for chronic suppression after completion of therapy. - will change to meropenem 500 q12 hr based on current renal function, may need to increase dosing as renal function is expected to improve - given recent failure, treating for presumed prostatitis with above 4-6 weeks of IV antibiotics. 2) Severe ERVIN, hypotension requiring pressors, thrombocytopenia secondary to #1 above. - Creatinine 3.5, but improving today. Baseline aneurysmal. Monitor renal function and continue IV fluids today. - continue antibiotics as noted above. - will hold home lisinopril and furosemide today. - continue home midodrine - now off pressors can downgrade to acute care 3) Elevated lipase in the 700 - okay for diet, no findings on CT of pancreatitis or abdominal pain. 4) Chronic norovirus - developed diarrhea today, no significant changes since prior. Previously positive norovirus in 07/2024. Possible chronic infection. Placed on precautions. - continue imodium prn - Hypertension. Blood pressure medication due to septic shock as above. - Hyperlipidemia resume home statin. - BPH. Hold Flomax due to low blood pressure. Code: DNR/DNI, surrogate is patient's daughter DVT: HSQ I have utilized all available immediate resources to obtain, update, or review the patient's current medications. Dispo: patient admitted under inpatient status. Unclear if will be able to discharge home or possible SNF, will have PT/OT evaluations. Additional history obtained via discussions with the ER provider. These discussions contributed to the creation of the above assessment and plan. I have reviewed patient's presenting documentation, labs, and imaging personally. Time-Based Coding :: [TOTAL MINUTES] spent with patient and on the chart (including review of chart, obtaining history, exam, reviewing outside data, placing orders, documenting exam and treatment plan, and counseling patient) on [DATE].
[2024-10-17] MEDS: SODIUM CHLORIDE 0.9% 1,000 ML 125 ML IV ×2 (14:01→22:35)
--- NOTE | 2024-10-17 14:31 | CM.DANOTE ---
Patient is a 79 yo male who was admitted INPT Status on 10/17/24 for recurrent UTI/Septic Shock. Pt has [email or web address] and [employer] for insurance and his PCP is Tae Asencio in [place]. EMR was reviewed. Per MD, pt with hx of COPD, stents, smokes up to 2 packs a day and 2-3 beers daily and admitted for tx of IV-Abx again and consulted with ID MD Dr. Pacheco and plan is 4-6 weeks IV Miropenem at SNF. Not yet appropriate for PT orders today. Pt also severely protein calorie malnourished at baseline. SW met bedside with pt and Dtr Gia and explained role and he confirms he lives in [place] alone but has very supportive friend Buster that visits him regularly. Pt states he has cane, walker, w/c at home but mostly furniture surfs and is quite sedentary. Pt has gotten his drivers license back and typically makes short trips to the store when needed. Pt confirms that his Dtr Gia is his DPOA and lives down in [place] but has been very supportive during pt's ongoing hospital admissions and outpt Infusion Clinic at [facility] after his prior discharges. Dtr and pt aware that recommendation is SNF and pt confirms he was hopeful to avoid SNF but is very tired of having ongoing IV antibiotics and willing to give SNF a try to complete his IV-Abx course. Provided SNF Choice list and preference is [facility], [facility], or [facility]. Requesting referrals sent to these 3 SNFs to narrow down their options to pick their final preference. MAXIM Nugent kindly made SNF referrals to above 3 facilities. PASRR completed but needs MD signature for hospital exempted discharge due to pt's depression dx and medication. Plan: SW to follow closely for above SNF reviews to determine which can accept pt for 4-6 weeks IV Miropenem before return home with supportive Dtr involvement. BRENDA Cavazos Discharge Planning/Care Management CM Discharge Assessment Start: 10/17/24 14:28 Freq: Status: Active Protocol: Document 10/17/24 14:28 BF (Rec: 10/17/24 14:31 BF [id number]) Discharge Planning Assessment Assigned Molecular Genetic Pathologist BRENDA Duckworth DPOA/Assigned Designee Name Jason Nielsen Contact Information [phone] Advance Directives? Yes Advance Directives on File No History Provided By Patient,Family Member,Medical Record Has Patient been admitted in last 30 No days? Comment Last admit over a month ago in August 2024 and discharge home with outpt infusion Prior Living Arrangements House Household Members none Type of transporation used prior to Drives own vehicle admit Independent with ADL's Yes Is patient alert and oriented? Yes Needs Assistance With Managing Medications,Home Chores / Shopping Caregiver for Another No DME Already Rented / Owned Wheelchair,FWW / Walker,Cane Patient/Family Preference Fpc Facility Comment Long course of IV-Abx Barriers to Discharge No Discharge Plan [facility] Facility [facility] Physical Therapy,IV Therapy Transportation Arrangement Facility van if SNF Referrals Initiated [facility] If patient plan is SNF: Has PASSR been Yes completed? Medicare Choice List Provided Yes Medicare choice list reviewed on patient,family electronic tablet with SNF/HH Preference [facility], or [facility] Has Agency SNF been contacted Yes Whiteboard Updated in Patient Room with Yes name and ext. # of Molecular Genetic Pathologist Review Status In Process Please Provide Date Initial DC 10/17/24 Assessment Was Performed Next Review Type Continued Stay Review
[2024-10-17] MEDS: ACETAMINOPHEN 325 MG TABLET 650 MG PO (17:02)
[2024-10-17] MEDS: LOPERAMIDE 2 MG CAPSULE PO (17:42)
[2024-10-17] MEDS: MIRTAZAPINE 15 MG TABLET 7.5 MG PO (20:12)
[2024-10-17] MEDS: SODIUM CHLORIDE 0.9% FLUSH 10 ML IV (20:14)
[2024-10-18] VITALS (7 sets, daily range): BP systolic 109–180; BP diastolic 60–96; PULSE 82–96; RESP 18–22; TEMP 36.2–36.6; O2SAT 96–98
[2024-10-18 03:30] LABS: MRSA (Nasal) PCR NOT DETECTED (Not Detect)
[2024-10-18] MEDS: MEROPENEM 500 MG in SODIUM CHLORIDE 0.9% 100 ML 200 MG IV (04:02)
[2024-10-18 06:39] LABS: Red Blood Cell Count 2.75 X10^6/uL (4.5-5.9); White Blood Cell Count 5.8 X10^3/uL (4.5-11.0)
[2024-10-18 06:40] LABS: Hematocrit 26.2 % (41-53); Mean Corpuscular HGB Conc 34.3 % (30-36); Mean Corpuscular Hemoglobin 32.6 PG (26-34); Mean Corpuscular Volume 95.1 fL (80-100); Platelet Count 156 X10^3/uL (150-400)
[2024-10-18 06:43] LABS: Basophils Percent Auto 1.1 % (0-2); Eosinophils Percent Auto 3.2 % (2-4); Lymphocytes Percent Auto 13.3 % (25-40); Monocytes Percent Auto 7.4 % (3-14)
[2024-10-18 06:44] LABS: Lymphocytes Absolute Auto 800 /uL (1100-4500); Monocytes Absolute Auto 400 /uL (0-900); Neutrophils Absolute Auto 4300 /uL (1500-7000)
[2024-10-18 06:45] LABS: Add Manual Diff / Slide Review SLIDE REVIEW; Basophils Absolute Auto 100 /uL (0-100); Eosinophils Absolute Auto 200 /uL (0-450)
[2024-10-18 06:53] LABS: Erythrocyte Sedimentation Rate 33 MM/HR (0-15)
[2024-10-18 06:56] LABS: Anisocytosis 2+; Ovalocytes 1+
[2024-10-18] MEDS: SODIUM CHLORIDE 0.9% 1,000 ML 125 ML IV (07:01)
[2024-10-18 08:06] LABS: C-Reactive Protein Quant 3.7 mg/dL (<1.0); Creatine Kinase < 20 U/L (55-170)
[2024-10-18 09:36] LABS: Alanine Aminotransferase 18 IU/L (<50); Albumin 2.6 g/dL (3.5-5.0); Albumin Globulin Ratio 1.1 (1.0-2.8); Alkaline Phosphatase 58 U/L (38-126); Aspartate Aminotransferase 39 IU/L (17-59); BUN Creatinine Ratio 32.4 (6-22); Bilirubin Total 0.4 mg/dL (0.2-1.3); Blood Urea Nitrogen 35 mg/dL (9-20); Calcium 7.7 mg/dL (8.4-10.2); Carbon Dioxide 14 mmol/L (22-32); Estimated Glomerular Filt Rate > 60 mL/min (>60); Globulin 2.3 g/dL (1.7-4.1); Glucose 92 mg/dL (70-99); HEMOLYSIS < 15 (0-50); Potassium 4.1 mmol/L (3.4-5.1); Sodium 144 mmol/L (137-145); Total Protein 4.9 g/dL (6.3-8.2)
[2024-10-18] MEDS: ATORVASTATIN 20 MG TABLET 80 MG PO (09:41)
[2024-10-18] MEDS: LOPERAMIDE 2 MG CAPSULE PO (09:41)
[2024-10-18] MEDS: PANTOPRAZOLE DR 40 MG TABLET PO (09:41)
[2024-10-18] MEDS: MIDODRINE HCL 5 MG TABLET 2.5 MG PO (09:41)
[2024-10-18] MEDS: carvediloL 3.125 MG TABLET PO ×2 (09:43→20:51)
[2024-10-18] MEDS: SODIUM CHLORIDE 0.9% FLUSH 10 ML IV ×3 (09:47→20:51)
[2024-10-18 09:48] LABS: Chloride 123 mmol/L (98-107); Magnesium 0.4 mg/dL (1.6-2.3)
[2024-10-18] MEDS: POTASSIUM CHLORIDE 20 MEQ TAB PO (09:50)
[2024-10-18] MEDS: MAGNESIUM CHLORIDE 64 MG TABLET PO ×3 (09:50→20:51)
[2024-10-18 09:53] LABS: Procalcitonin 18.2 ng/mL (<0.5)
[2024-10-18] MEDS: TAMSULOSIN 0.4 MG CAPSULE PO (10:46)
[2024-10-18] MEDS: MAGNESIUM SULFATE 4 GM/100 ML PIGGYBACK IV (10:54)
--- NOTE | 2024-10-18 14:29 | P.PN_ITS ---
Subjective Subjective Interval history: 79 M admitted with ESBL bacteremia. He feels improved today, no complaints today. Mg was 0.4 repleted with IV. Exam Vital Signs (past 8 hours): - 10/18/24 08:00 10/18/24 08:00 10/18/24 12:00 Temperature 97.2 F L Pulse Rate 91 H 91 H Respiratory Rate 20 19 Blood Pressure 141/67 H 180/96 H Pulse Oximetry 98 98 Oxygen Delivery Method Room Air Oxygen Flow Rate 0 0 Oxygen Delivery Method Room Air Oxygen Flow Rate 0 Narrative Exam Narrative: NAD, alert and oriented. Fluent speech. Lungs are somewhat wheezy, normal rate and effort. Heart is regular, no murmur gallop or rub. Abdomen is soft, non distended. Extremities are free of edema. Objective Labs 10/18/24 05:20 10/18/24 06:10 Labs: Laboratory Results - last 24 hr 10/18/24 10/18/24 10/18/24 02:00 05:20 06:10 WBC 5.8 D RBC 2.75 L Hgb 9.0 L Hct 26.2 L MCV 95.1 MCH 32.6 MCHC 34.3 RDW 22.0 H Plt Count 156 Neut % (Auto) 75.0 Lymph % (Auto) 13.[address] [place] % (Auto) 7.4 Eos % (Auto) 3.2 Baso % (Auto) 1.1 Neut # (Auto) 4300 Lymph # (Auto) [address] [place] # (Auto) 400 Eos # (Auto) 200 Baso # (Auto) 100 RBC Morphology See below Anisocytosis 2+ H Ovalocytes 1+ H ESR 33 H Sodium 144 Potassium 4.1 Chloride 123 H* Carbon Dioxide 14 L BUN 35 H Creatinine 1.08 Estimated GFR > 60 BUN/Creatinine Ratio 32.4 H Glucose 92 Calcium 7.7 L Magnesium 0.4 L* Total Bilirubin 0.4 AST 39 ALT 18 Alkaline Phosphatase 58 Total Creatine Kinase < 20 L C-Reactive Protein 3.7 H Total Protein 4.9 L Albumin 2.6 L Globulin 2.3 Albumin/Globulin Ratio 1.1 Procalcitonin 18.2 H Nasal Screen MRSA (PCR) Not detected PFSH Medical History Claudication of both lower extremities COPD (chronic obstructive pulmonary disease) Hyperlipidemia CAD (coronary artery disease) HTN (hypertension) Surgical History History of heart artery stent Social History household members: none Smoking Status: Current every day smoker alcohol intake: current Assessment & Plan Assessment & Plan narrative: 79-year-old male with past medical history of recurrent urinary tract infection, hypertension, hyperlipidemia, BPH and asthma admitted with recurrent ESBL bacteremia. 1) Septic shock secondary to E. coli ESBL bacteremia from likely urinary source , presumed prostatitis - - blood culture with likely ESBL E. coli, continue Ertapenem - has recent ESBL course of ertapenem, discussed with outpatient ID physician who recommended change to meropenem as he had elevated LFTs on ertapenem. Recommended 4-6 weeks of IV antibiotics, preferrably at a SNF. Additionally recommends fosfomycin sensitivities from lab as plan for chronic suppression after completion of therapy. These were discussed with lab today whom has sent out these cultures. - improving renal function, discussed with pharmacy dosing increased to 1g q12hr. - given recurrence, treating for presumed prostatitis with above 4-6 weeks of IV antibiotics. - post void residual approx 110 mL after voiding 125 mL. Restart flomax today. 2) Severe ERVIN, hypotension requiring pressors, thrombocytopenia secondary to #1 above. - Creatinine 3.5 now improved to 1.08. Monitor renal function. Can stop IV fluids today. - continue antibiotics as noted above. - hold diuretics but resume home lisinopril today as he is hypertensive. - will stop home midodrine today. see how he does with PT tomorrow. - now off pressors 3) Elevated lipase in the 700 - okay for diet, no findings on CT of pancreatitis or abdominal pain. 4) Chronic norovirus - developed diarrhea today, no significant changes since prior. Previously positive norovirus in 07/2024. Possible chronic infection. Placed on precautions. - continue imodium prn - Hypertension. Blood pressure medication due to septic shock as above. - Hyperlipidemia resume home statin. - BPH. resume flomax. Checked PVR per ID recommendations noted above. Code: DNR/DNI, surrogate is patient's daughter DVT: HSQ I have utilized all available immediate resources to obtain, update, or review the patient's current medications. Dispo: patient admitted under inpatient status. Hopeful for SNF, Plan for PICC tomorrow and PT/OT. Additional history obtained via discussions with the infectious disease provider today. These discussions contributed to the creation of the above assessment and plan. I have reviewed patient's presenting documentation, labs, and imaging personally. Time-Based Coding :: [TOTAL MINUTES] spent with patient and on the chart (including review of chart, obtaining history, exam, reviewing outside data, placing orders, documenting exam and treatment plan, and counseling patient) on [DATE].
[2024-10-18] MEDS: MEROPENEM 1 GM in SODIUM CHLORIDE 0.9% 100 ML IV (15:58)
[2024-10-18] MEDS: SODIUM CHLORIDE 0.9% 250 ML 21 ML IV (15:59)
--- NOTE | 2024-10-18 19:02 | PC.NURSE ---
Shift summary: Patient tolerating meals, denies n/v or abdominal pain. Had one loose stool this morning and requested prn immodium as ordered, no further BM's this shift. Patient's magnesium replaced as ordered and tolerated well, patient states he has chronically low magnesium. Denies pain. Uses call light for his assistance. Bed alarm on for safety, call light within reach.
[2024-10-18] MEDS: HEPARIN 5,000 UNIT/ML VIAL 5000 UNIT SUBCUT (20:51)
[2024-10-18] MEDS: MIRTAZAPINE 15 MG TABLET 7.5 MG PO (20:51)
[2024-10-19] VITALS (9 sets, daily range): BP systolic 125–168; BP diastolic 67–80; PULSE 63–96; RESP 19–26; TEMP 36.2–36.9; O2SAT 97–99
[2024-10-19] MEDS: MEROPENEM 1 GM in SODIUM CHLORIDE 0.9% 100 ML IV (04:49)
[2024-10-19 05:45] LABS: Add Manual Diff / Slide Review NO; Basophils Absolute Auto 100 /uL (0-100); Basophils Percent Auto 1.1 % (0-2); Eosinophils Absolute Auto 100 /uL (0-450); Eosinophils Percent Auto 2.5 % (2-4); Hematocrit 23.5 % (41-53); Hemoglobin 8.2 g/dL (13.5-17.5); Lymphocytes Absolute Auto 700 /uL (1100-4500); Lymphocytes Percent Auto 14.3 % (25-40); Mean Corpuscular HGB Conc 34.7 % (30-36); Mean Corpuscular Hemoglobin 32.5 PG (26-34); Mean Corpuscular Volume 93.7 fL (80-100); Monocytes Absolute Auto 400 /uL (0-900); Monocytes Percent Auto 8.8 % (3-14); Neutrophils Absolute Auto 3500 /uL (1500-7000); Neutrophils Percent Auto 73.3 % (50-75); Platelet Count 126 X10^3/uL (150-400); Red Blood Cell Count 2.51 X10^6/uL (4.5-5.9); Red Cell Distribution Width 22.5 % (11.6-14.8); White Blood Cell Count 4.8 X10^3/uL (4.5-11.0)
--- NOTE | 2024-10-19 05:55 | PC.NURSE ---
shift leader RN note pt A&Ox4, pt expressing his dissatisfaction with plans to go to SNF for ABX treatment, he states he wants to go home so I can smoke and drink a beer, life isn't living in a long term, pt encouraged to discuss his wishes with is daughter in am and also social work/MD, VSS, afebrile, lungs clear, O2 sats >92% on RA, voiding small amts clear yellow urine in urinal with stress incont/dribbling, brief on, bed alarm on, care ongoing
[2024-10-19 05:58] LABS: Alanine Aminotransferase 20 IU/L (<50); Albumin 2.6 g/dL (3.5-5.0); Albumin Globulin Ratio 1.1 (1.0-2.8); Alkaline Phosphatase 73 U/L (38-126); Aspartate Aminotransferase 32 IU/L (17-59); BUN Creatinine Ratio 24.1 (6-22); Bilirubin Total 0.4 mg/dL (0.2-1.3); Blood Urea Nitrogen 19 mg/dL (9-20); Calcium 7.8 mg/dL (8.4-10.2); Carbon Dioxide 19 mmol/L (22-32); Chloride 115 mmol/L (98-107); Estimated Glomerular Filt Rate > 60 mL/min (>60); Globulin 2.3 g/dL (1.7-4.1); Glucose 112 mg/dL (70-99); HEMOLYSIS 36 (0-50); Potassium 4.2 mmol/L (3.4-5.1); Sodium 137 mmol/L (137-145); Total Protein 4.9 g/dL (6.3-8.2)
[2024-10-19 06:51] LABS: Anisocytosis 2+; Ovalocytes 2+
[2024-10-19] MEDS: MAGNESIUM CHLORIDE 64 MG TABLET PO ×3 (08:29→20:26)
[2024-10-19] MEDS: POTASSIUM CHLORIDE 20 MEQ TAB PO (08:29)
[2024-10-19] MEDS: carvediloL 3.125 MG TABLET PO ×2 (08:29→20:26)
[2024-10-19] MEDS: SODIUM CHLORIDE 0.9% FLUSH 10 ML IV ×2 (08:29→20:26)
[2024-10-19] MEDS: LOPERAMIDE 2 MG CAPSULE PO (08:29)
[2024-10-19] MEDS: lisinopriL 10 MG TABLET 20 MG PO (08:29)
[2024-10-19] MEDS: ATORVASTATIN 20 MG TABLET 80 MG PO (08:29)
[2024-10-19] MEDS: PANTOPRAZOLE DR 40 MG TABLET PO (08:29)
[2024-10-19] MEDS: TAMSULOSIN 0.4 MG CAPSULE PO (08:30)
--- NOTE | 2024-10-19 11:23 | PM.DS.1 ---
History of Present Illness History of Present Illness Date Patient Seen: 10/19/24 Time Patient Seen: 11:23 Chief complaint: Mid back pain, N/V Narrative: Per overnight provider, 79-year-old male with past medical history of recurrent urinary tract infection, hypertension, hyperlipidemia, BPH and asthma presents with complaint of generalized weakness, nausea, vomiting diarrhea. The patient's report of the last few days, the patient has been having increased generalized weakness with nausea, vomiting and diarrhea. The patient was treated with antibiotic 2 weeks ago for UTI. The patient otherwise denies any fever, chill, chest pain, Praveen pain, syncope or shortness of air. The emergency room, the patient was hypotensive requiring 3 L of IV fluid bolus. The patient UA was positive for UTI. Serum WBC was 12 but lactate was normal. The patient previous urine culture shows multidrug-resistant E. coli. The patient was given ertapenem and a central line was placed as agreeable by the patient. Levophed was started. The patient was saturating well on room air. The patient clearly stated that he is DNR/DNI but is okay for central line and pressors for now. Lipase was 700 though the patient denies any abdominal pain. CT abdomen shows no meals or signs of acute pancreatitis. Interval history: blood culture positive for gram negative organisms, likely ESBL based on PCR. Discussed with ID physician as noted below. Discharge Providers Provider Date of admission: 10/17/24 04:07 Discharge Date: 10/19/24 Primary care physician: LINH Freitas Discharge provider: Estuardo Cheney DO Summary Hospital Course Discharge Diagnosis: 9-year-old male with past medical history of recurrent urinary tract infection, hypertension, hyperlipidemia, BPH and asthma admitted with recurrent ESBL bacteremia. 1) Septic shock secondary to E. coli ESBL bacteremia from likely urinary source , presumed prostatitis - - blood culture with likely ESBL E. coli, continue Ertapenem - has recent ESBL course of ertapenem, discussed with outpatient ID physician who recommended change to meropenem as he had elevated LFTs on ertapenem. Recommended 4-6 weeks of IV antibiotics, preferrably at a SNF. Additionally recommends fosfomycin sensitivities from lab as plan for chronic suppression after completion of therapy. These were discussed with lab today whom has sent out these cultures. - improving renal function, discussed with pharmacy dosing increased to 1g q12hr. - given recurrence, treating for presumed prostatitis with above 4-6 weeks of IV antibiotics. - post void residual approx 110 mL after voiding 125 mL. Restart flomax today. 2) Severe ERVIN, hypotension requiring pressors, thrombocytopenia secondary to #1 above. - Creatinine 3.5 now improved to 1.08. Monitor renal function. Can stop IV fluids today. - continue antibiotics as noted above. - hold diuretics but resume home lisinopril today as he is hypertensive. - will stop home midodrine today. see how he does with PT tomorrow. - now off pressors 3) Elevated lipase in the 700 - okay for diet, no findings on CT of pancreatitis or abdominal pain. 4) Chronic norovirus - developed diarrhea today, no significant changes since prior. Previously positive norovirus in 07/2024. Possible chronic infection. Placed on precautions. - continue imodium prn - Hypertension. Blood pressure medication due to septic shock as above. - Hyperlipidemia resume home statin. - BPH. resume flomax. Checked PVR per ID recommendations noted above. Code: DNR/DNI, surrogate is patient's daughter DVT: HSQ Time Spent with Patient Time spent: Greater than 30 minutes Exam Vital Signs (past 8 hours): - 10/19/24 04:00 10/19/24 08:00 10/19/24 08:29 Temperature 97.4 F L 97.7 F Pulse Rate 87 90 90 Respiratory Rate 19 21 Blood Pressure 151/67 H 168/79 H 168/76 H Pulse Oximetry 98 97 Oxygen Flow Rate 0 0 10/19/24 08:29 Temperature Pulse Rate 90 Respiratory Rate Blood Pressure 168/76 H Pulse Oximetry Oxygen Flow Rate Oxygen Delivery Method Room Air Oxygen Flow Rate 0 Narrative Exam Narrative: NAD, alert and oriented. Fluent speech. Lungs are somewhat wheezy, normal rate and effort. Heart is regular, no murmur gallop or rub. Abdomen is soft, non distended. Extremities are free of edema. Objective Labs 10/19/24 05:20 10/19/24 05:20 Labs: Laboratory Results - last 24 hr 10/16/24 10/19/24 22:37 05:20 WBC 4.8 RBC 2.51 L Hgb 8.2 L Hct 23.5 L MCV 93.7 MCH 32.5 MCHC 34.7 RDW 22.5 H Plt Count 126 L Neut % (Auto) 73.3 Lymph % (Auto) 14.3 L [place] % (Auto) 8.8 Eos % (Auto) 2.5 Baso % (Auto) 1.1 Neut # (Auto) 3500 Lymph # (Auto) 700 L [place] # (Auto) 400 Eos # (Auto) 100 Baso # (Auto) 100 RBC Morphology See below Anisocytosis 2+ H Ovalocytes 2+ H Sodium 137 Potassium 4.2 Chloride 115 H Carbon Dioxide 19 L BUN 19 Creatinine 0.79 Estimated GFR > 60 BUN/Creatinine Ratio 24.1 H Glucose 112 H Calcium 7.8 L Magnesium 1.0 L Total Bilirubin 0.4 AST 32 ALT 20 Alkaline Phosphatase 73 Total Protein 4.9 L Albumin 2.6 L Globulin 2.3 Albumin/Globulin Ratio 1.1 A.calcoaceticus-baumannii cmplx PCR Not detected Bacteroides fragilis Not detected Juliana albicans (PCR) Not detected Juliana auris (PCR) Not detected C. glabrata (PCR) Not detected C. krusei (PCR) Not detected C. parapsilosis (PCR) Not detected C. tropicalis (PCR) Not detected C. neoform/gattii (PCR) Not detected Enterobacterales (PCR) Detected E. cloacae complex PCR Not detected Enterococc faecalis PCR Not detected Enterococc faecium PCR Not detected E. coli (PCR) Detected H. influenzae (PCR) Not detected Klebsiella aerogenes (PCR) Not detected Klebsiella oxytoca PCR Not detected Klebsiella pneumoniae Not detected List. monocytogenes PCR Not detected N. meningitidis (PCR) Not detected Proteus species (PCR) Not detected Salmonella spp. (PCR) Not detected Serratia marcescens PCR Not detected Staphylococcus sp PCR Not detected Staph aureus (PCR) Not detected mecA/C & MREJ Resist Gene Not applicable mecA/C-Methicil Resis Gene Not applicable mcr-1 Colistin Res Gene PCR Not detected Staph epidermidis (PCR) Not detected Staph lugdunensis PCR Not detected S. maltophilia (PCR) Not detected Streptococcus sp PCR Not detected Group A Strep (PCR) Not detected Strep agalactiae (PCR) Not detected Strep pneumoniae (PCR) Not detected P. aeruginosa (PCR) Not detected Rebeca/B-Vanco Res Genes Not applicable blaIMP Car res Gene PCR Not detected KPC-Carbap Res Gene PCR Not detected blaNDM Car Res Gene PCR Not detected OXA-48 Carbapenem Resis Gene (PCR) Not detected blaVIM Car Res Gene PCR Not detected CTX-M Gene Resistance (PCR) Detected PFSH Medical History Claudication of both lower extremities COPD (chronic obstructive pulmonary disease) Hyperlipidemia CAD (coronary artery disease) HTN (hypertension) Surgical History History of heart artery stent Social History household members: none Smoking Status: Current every day smoker alcohol intake: current Discharge Plan Discharge orders & Medications Prescriptions: No Action cyanocobalamin (vitamin B-12) [Vitamin B-12] 100 mcg Tablet 100 mcg PO DAILY Qty: 60 0RF ascorbic acid (vitamin C) [Vitamin C] 500 mg Tablet 500 mg PO BID Qty: 60 0RF lisinopril 10 MG tablet 20 mg PO QDAY Qty: 90 1RF omeprazole 40 mg capsule,delayed release(DR/EC) 40 mg PO DAILY carvedilol 3.125 mg tablet 3.125 mg PO BID midodrine 2.5 mg tablet 2.5 mg PO TID furosemide 20 mg tablet 20 mg PO BID Rx Instructions: patient takes first dose upon waking up, then second dose later in day, depending on errands/needing to leave house, often around 4pm for second dose mirtazapine 7.5 mg tablet 7.5 mg PO BEDTIME potassium chloride 20 mEq tablet extended release 20 meq PO DAILY albuterol sulfate 90 mcg/actuation Hfa Aerosol Inhaler 2 puff INHALATION Q4-6H MDD 4 PRN (Reason: sob) [id number] Tablet 1 tab PO DAILY magnesium chloride 64 mg Tablet,Delayed Release (Dr/Ec) 64 mg PO TID Patient Comments: RX sent by Dr Pacheco @ [facility] 09/19/24 patient should hopefully be able to start 09/20 or 09/21 as soon as it's in stock at pharmacy. Completed magnesium oxide (400 mg x 2 tabs) and instructed to change to this new rx for hypomagnesia despite magnesium supplementation. atorvastatin 80 mg tablet 80 mg PO DAILY tamsulosin 0.4 mg capsule 0.4 PO DAILY Follow up/Referrals: Tae Asencio ARNP [Primary Care Provider] - Discharge Data Primary Care Provider: Tae Asencio
[2024-10-19] MEDS: MEROPENEM 2 GM in SODIUM CHLORIDE 0.9% 100 ML IV ×2 (12:52→20:26)
--- NOTE | 2024-10-19 13:21 | PM.PN.1 ---
Subjective Subjective Interval history: 79 M admitted with ESBL bacteremia. He feels improved today, no complaints today. Mg is up to 1.0. Unable to get PICC in time for SNF discharge today Exam Vital Signs (past 8 hours): - 10/19/24 08:00 10/19/24 08:29 10/19/24 08:29 Temperature 97.7 F Pulse Rate 90 90 90 Respiratory Rate 21 Blood Pressure 168/79 H 168/76 H 168/76 H Pulse Oximetry 97 Oxygen Flow Rate 0 10/19/24 12:00 Temperature 97.5 F L Pulse Rate 63 Respiratory Rate Blood Pressure 125/68 Pulse Oximetry 98 Oxygen Flow Rate 0 Oxygen Delivery Method Room Air Oxygen Flow Rate 0 Narrative Exam Narrative: NAD, alert and oriented. Fluent speech. Lungs are somewhat wheezy, normal rate and effort. Heart is regular, no murmur gallop or rub. Abdomen is soft, non distended. Extremities are free of edema. Objective Labs 10/19/24 05:20 10/19/24 05:20 Labs: Laboratory Results - last 24 hr 10/16/24 10/19/24 22:37 05:20 WBC 4.8 RBC 2.51 L Hgb 8.2 L Hct 23.5 L MCV 93.7 MCH 32.5 MCHC 34.7 RDW 22.5 H Plt Count 126 L Neut % (Auto) 73.3 Lymph % (Auto) 14.3 L [place] % (Auto) 8.8 Eos % (Auto) 2.5 Baso % (Auto) 1.1 Neut # (Auto) 3500 Lymph # (Auto) 700 L [place] # (Auto) 400 Eos # (Auto) 100 Baso # (Auto) 100 RBC Morphology See below Anisocytosis 2+ H Ovalocytes 2+ H Sodium 137 Potassium 4.2 Chloride 115 H Carbon Dioxide 19 L BUN 19 Creatinine 0.79 Estimated GFR > 60 BUN/Creatinine Ratio 24.1 H Glucose 112 H Calcium 7.8 L Magnesium 1.0 L Total Bilirubin 0.4 AST 32 ALT 20 Alkaline Phosphatase 73 Total Protein 4.9 L Albumin 2.6 L Globulin 2.3 Albumin/Globulin Ratio 1.1 A.calcoaceticus-baumannii cmplx PCR Not detected Bacteroides fragilis Not detected Juliana albicans (PCR) Not detected Juliana auris (PCR) Not detected C. glabrata (PCR) Not detected C. krusei (PCR) Not detected C. parapsilosis (PCR) Not detected C. tropicalis (PCR) Not detected C. neoform/gattii (PCR) Not detected Enterobacterales (PCR) Detected E. cloacae complex PCR Not detected Enterococc faecalis PCR Not detected Enterococc faecium PCR Not detected E. coli (PCR) Detected H. influenzae (PCR) Not detected Klebsiella aerogenes (PCR) Not detected Klebsiella oxytoca PCR Not detected Klebsiella pneumoniae Not detected List. monocytogenes PCR Not detected N. meningitidis (PCR) Not detected Proteus species (PCR) Not detected Salmonella spp. (PCR) Not detected Serratia marcescens PCR Not detected Staphylococcus sp PCR Not detected Staph aureus (PCR) Not detected mecA/C & MREJ Resist Gene Not applicable mecA/C-Methicil Resis Gene Not applicable mcr-1 [place] Res Gene PCR Not detected Staph epidermidis (PCR) Not detected Staph lugdunensis PCR Not detected S. maltophilia (PCR) Not detected Streptococcus sp PCR Not detected Group A Strep (PCR) Not detected Strep agalactiae (PCR) Not detected Strep pneumoniae (PCR) Not detected P. aeruginosa (PCR) Not detected Rebeca/B-Vanco Res Genes Not applicable blaIMP Car res Gene PCR Not detected KPC-Carbap Res Gene PCR Not detected blaNDM Car Res Gene PCR Not detected OXA-48 Carbapenem Resis Gene (PCR) Not detected blaVIM Car Res Gene PCR Not detected CTX-M Gene Resistance (PCR) Detected PFSH Medical History Claudication of both lower extremities COPD (chronic obstructive pulmonary disease) Hyperlipidemia CAD (coronary artery disease) HTN (hypertension) Surgical History History of heart artery stent Social History household members: none Smoking Status: Current every day smoker alcohol intake: current Assessment & Plan Assessment & Plan narrative: 79-year-old male with past medical history of recurrent urinary tract infection, hypertension, hyperlipidemia, BPH and asthma admitted with recurrent ESBL bacteremia. 1) Septic shock secondary to E. coli ESBL bacteremia from likely urinary source , presumed prostatitis - - blood culture with likely ESBL E. coli, continue Ertapenem - has recent ESBL course of ertapenem, discussed with outpatient ID physician who recommended change to meropenem as he had elevated LFTs on ertapenem. Recommended 4-6 weeks of IV antibiotics, preferrably at a SNF. Additionally recommends fosfomycin sensitivities from lab as plan for chronic suppression after completion of therapy. These were discussed with lab today whom has sent out these cultures. - improving renal function, discussed with pharmacy dosing increased to 1g q12hr. - given recurrence, treating for presumed prostatitis with above 4-6 weeks of IV antibiotics. - post void residual approx 110 mL after voiding 125 mL. Restarted flomax today. 2) Severe ERVIN, hypotension requiring pressors, thrombocytopenia secondary to #1 above. - Creatinine 3.5 now improved to 1.08. Monitor renal function. Can stop IV fluids today. - continue antibiotics as noted above. - hold diuretics but resume home lisinopril today as he is hypertensive. - will stop home midodrine today. see how he does with PT tomorrow. - now off pressors 3) Elevated lipase in the 700 - okay for diet, no findings on CT of pancreatitis or abdominal pain. 4) Chronic norovirus - developed diarrhea today, no significant changes since prior. Previously positive norovirus in 07/2024. Possible chronic infection. Placed on precautions. - continue imodium prn 5) Severe hypomagnesemia - improved to 1.0. Chronically low as an outpatient. - Hypertension. Blood pressure medication held initially, now resumed. Now normotensive today. - Hyperlipidemia resume home statin. - BPH. resumed flomax. Checked PVR per ID recommendations noted above. Code: DNR/DNI, surrogate is patient's daughter DVT: HSQ I have utilized all available immediate resources to obtain, update, or review the patient's current medications. Dispo: patient admitted under inpatient status. SNF tomorrow , PICC placement today. These discussions contributed to the creation of the above assessment and plan. I have reviewed patient's presenting documentation, labs, and imaging personally. Time-Based Coding :: [TOTAL MINUTES] spent with patient and on the chart (including review of chart, obtaining history, exam, reviewing outside data, placing orders, documenting exam and treatment plan, and counseling patient) on [DATE].
--- NOTE | 2024-10-19 13:25 | CM.DPC ---
DCP Cont. Reviewed EMR and team rounds for status updates. [facility] can accept, they will transport him tomorrow am, will confirm time by tomorrow morning. Updated pt and dtr, Gia. Pt is still awaiting PICC placement.
--- NOTE | 2024-10-19 16:17 | DI.RAD.S_ITS ---
PROCEDURE: XR CHEST FOR PICC 1V INDICATIONS: picc placement TECHNIQUE: One view of the chest was acquired. COMPARISON: [facility], , XR CHEST 1V, 10/17/2024, 3:51. FINDINGS: Surgical changes and devices: Left-sided PICC line tip is in SVC. Right internal jugular central venous catheter tip is in SVC. Lungs and pleura: Lungs are clear. No pleural effusions or pneumothorax. Mediastinum: Mediastinal contours appear normal. Heart size is normal. Bones and chest wall: No suspicious bony lesions. Overlying soft tissues appear unremarkable. IMPRESSION: Left-sided PICC line tip is in SVC. No focal infiltrate, pleural effusion or pneumothorax. Dictated by: Reji Villanueva M.D. on 10/19/2024 at 17:10 Approved by: Reji Villanueva M.D. on 10/19/2024 at 17:10
[2024-10-19] MEDS: MIRTAZAPINE 15 MG TABLET 7.5 MG PO (20:28)
[2024-10-20 04:11] VITALS: BP 157/77; PULSE 99; RESP 14; TEMP 36.6; O2SAT 96
[2024-10-20] MEDS: MEROPENEM 2 GM in SODIUM CHLORIDE 0.9% 100 ML IV ×2 (04:11→12:18)
[2024-10-20 04:38] LABS: Hemoglobin 8.6 g/dL (13.5-17.5); Mean Corpuscular HGB Conc 34.6 % (30-36); Mean Corpuscular Hemoglobin 32.4 PG (26-34); Mean Corpuscular Volume 93.6 fL (80-100); Platelet Count 156 X10^3/uL (150-400); Red Blood Cell Count 2.67 X10^6/uL (4.5-5.9); Red Cell Distribution Width 22.3 % (11.6-14.8); White Blood Cell Count 5.4 X10^3/uL (4.5-11.0)
[2024-10-20 04:39] LABS: Alanine Aminotransferase 19 IU/L (<50); Albumin 2.8 g/dL (3.5-5.0); Albumin Globulin Ratio 1.2 (1.0-2.8); Alkaline Phosphatase 79 U/L (38-126); Aspartate Aminotransferase 39 IU/L (17-59); BUN Creatinine Ratio 21.5 (6-22); Bilirubin Total 0.3 mg/dL (0.2-1.3); Blood Urea Nitrogen 14 mg/dL (9-20); Calcium 8.4 mg/dL (8.4-10.2); Carbon Dioxide 26 mmol/L (22-32); Chloride 109 mmol/L (98-107); Estimated Glomerular Filt Rate > 60 mL/min (>60); Globulin 2.4 g/dL (1.7-4.1); Glucose 113 mg/dL (70-99); HEMOLYSIS < 15 (0-50); Potassium 4.3 mmol/L (3.4-5.1); Sodium 138 mmol/L (137-145); Total Protein 5.2 g/dL (6.3-8.2)
[2024-10-20 04:40] LABS: Add Manual Diff / Slide Review YES
[2024-10-20 04:44] LABS: Magnesium 0.6 mg/dL (1.6-2.3)
--- NOTE | 2024-10-20 04:53 | PC.NURSE ---
Addendum entered by Kennedy Reardon R.N. 10/20/24 05:04: Informed Dr. Brumfield that this patient had a critical Mag level this AM of 0.6 at this time. No new orders at this time. Original Note: Informed Dr. Brumfield that this patient had a critical Mag level this AM of 0.6 at this time.
[2024-10-20 06:14] LABS: Anisocytosis 2+; Neutrophils Absolute Manual 4266 /uL (3000-5900); Nucleated Red Blood Cells 1 #/Diff; Ovalocytes 1+; Total Cells Counted 100
--- NOTE | 2024-10-20 07:24 | CM.DPC ---
DCP Cont. Reviewed EMR and team rounds for status updates. Pt has been medically cleared for d/c today to [facility]. They will transport him at 10:00am. D/c clinicals and PASSAR will be faxed prior to d/c. No further CM d/c assistance/resource needs indicated at this time.
--- NOTE | 2024-10-20 07:46 | P.DS_ITS ---
History of Present Illness History of Present Illness Chief complaint: Mid back pain, N/V Narrative: From H&P: 79-year-old male with past medical history of recurrent urinary tract infection, hypertension, hyperlipidemia, BPH and asthma presents with complaint of generalized weakness, nausea, vomiting diarrhea. The patient's report of the last few days, the patient has been having increased generalized weakness with nausea, vomiting and diarrhea. The patient was treated with antibiotic 2 weeks ago for UTI. The patient otherwise denies any fever, chill, chest pain, Praveen pain, syncope or shortness of air. The emergency room, the patient was hypotensive requiring 3 L of IV fluid bolus. The patient UA was positive for UTI. Serum WBC was 12 but lactate was normal. The patient previous urine culture shows multidrug-resistant E. coli. The patient was given ertapenem and a central line was placed as agreeable by the patient. Levophed was started. The patient was saturating well on room air. The patient clearly stated that he is DNR/DNI but is okay for central line and pressors for now. Lipase was 700 though the patient denies any abdominal pain. CT abdomen shows no meals or signs of acute pancreatitis. Interval history: blood culture positive for gram negative organisms, likely ESBL based on PCR. Discussed with ID physician as noted below. Discharge Providers Provider Date of admission: 10/17/24 04:07 Discharge Date: 10/20/24 Primary care physician: LINH Freitas Consults: Discussed with Infectious diseases, [facility]. Discharge provider: Elliott Rosa MD Summary Hospital Course Discharge Diagnosis: 1) Septic shock secondary to E. coli ESBL bacteremia from likely urinary source , presumed prostatitis -present on admission and active. - blood culture with likely ESBL E. coli, continue Ertapenem - has recent ESBL course of ertapenem, discussed with outpatient ID physician who recommended change to meropenem as he had elevated LFTs on ertapenem. Recommended 4-6 weeks of IV antibiotics, preferrably at a SNF. Additionally recommends fosfomycin sensitivities from lab as plan for chronic suppression after completion of therapy. These were discussed with lab today whom has sent out these cultures. - improving renal function, discussed with pharmacy dosing increased to 1g q12hr. - given recurrence, treating for presumed prostatitis with above 4-6 weeks of IV antibiotics. - post void residual approx 110 mL after voiding 125 mL. Restarted flomax today. 2) Severe ERVIN, hypotension requiring pressors, thrombocytopenia secondary to #1 above. Present on admission and improved. - Creatinine 3.5 now improved to 1.08. Monitor renal function. Can stop IV fluids today. - continue antibiotics as noted above. - hold diuretics but resume home lisinopril today as he is hypertensive. - will stop home midodrine today. see how he does with PT tomorrow. - now off pressors 3) Elevated lipase in the 700, present on admission and improved. - okay for diet, no findings on CT of pancreatitis or abdominal pain. 4) Chronic norovirus, present on admission and active. - developed diarrhea today, no significant changes since prior. Previously positive norovirus in 07/2024. Possible chronic infection. Placed on precautions. - continue imodium prn 5) Severe hypomagnesemia, present on admission and improved. - improved to 1.0. Chronically low as an outpatient. - Hypertension. Blood pressure medication held initially, now resumed. Now normotensive today. - Hyperlipidemia resume home statin. Stable. - BPH. resumed flomax. Checked PVR per ID recommendations noted above. Stable. Hospital Course: Patient was initially admitted with sepsis and septic shock as well as ERVIN. His initial creatinine was 3.5, he was resuscitated with IV fluids and required pressors. He was able to wean off from pressors and blood cultures were positive for Gram-negative organisms. Ultimately he was found to have ESBL bacteremia. He was discussed with Infectious Disease and ultimately will be discharged on IV meropenem with follow up with Infectious Disease on October 24. He will likely be treated for several weeks with IV antibiotics. On the day of discharge he was clinically stable and going to [facility]. He does have chronic diarrhea and was positive for norovirus. He also had severe hypomagnesemia which is repleted. His kidney function improved as noted above. Postvoid residuals were evaluated while in the hospital and were acceptable. Status at Discharge Cognitive/behavioral status at discharge: oriented Functional status at discharge: uses cane/walker Overall status at discharge: patient is progressing back to baseline Time Spent with Patient Time spent: Greater than 30 minutes Exam Vital Signs (past 8 hours): - 10/19/24 23:49 10/20/24 04:11 Temperature 97.6 F 98 F Pulse Rate 96 H 99 H Respiratory Rate 26 H 14 Blood Pressure 147/80 H 157/77 H Pulse Oximetry 98 96 Oxygen Delivery Method Room Air Oxygen Flow Rate 0 Narrative Exam Narrative: NAD, alert and oriented. Fluent speech. Lungs are clear, normal rate and effort. Heart is regular, no murmur gallop or rub. Abdomen is soft, non distended. Extremities are free of edema. Objective ECG Impression: Sinus bradycardia Right bundle branch block Imaging Multiple studies:: Radiologist's impression: Chest x-ray: Left-sided PICC line tip is in SVC. No focal infiltrate, pleural effusion or pneumothorax. Abdomen pelvis CT: 1. No hydronephrosis. Small nonobstructing left kidney stone is unchanged. 2. No bladder stone. No free fluid. 3. AAA measuring 4.3 cm is unchanged. Labs 10/20/24 04:00 10/20/24 04:00 Labs: Laboratory Results - last 24 hr 10/20/24 04:00 WBC 5.4 RBC 2.67 L Hgb 8.6 L Hct 25.0 L MCV 93.6 MCH 32.4 MCHC 34.6 RDW 22.3 H Plt Count 156 Neut % (Auto) Not Reportable Lymph % (Auto) Not Reportable [place] % (Auto) Not Reportable Eos % (Auto) Not Reportable Baso % (Auto) Not Reportable Lymph # (Auto) Not Reportable [place] # (Auto) Not Reportable Baso # (Auto) Not Reportable Total Counted 100 Seg Neutrophils % 73.0 H Band Neutrophils % 6.0 Lymphocytes % (Manual) 13.0 L Monocytes % (Manual) 7.0 Eosinophils % (Manual) 1.0 L Neutrophils # (Manual) 4266 Nucleated RBCs 1 H RBC Morphology See below Anisocytosis 2+ H Ovalocytes 1+ H Sodium 138 Potassium 4.3 Chloride 109 H Carbon Dioxide 26 BUN 14 Creatinine 0.65 L Estimated GFR > 60 BUN/Creatinine Ratio 21.5 Glucose 113 H Calcium 8.4 Magnesium 0.6 L* Total Bilirubin 0.3 AST 39 ALT 19 Alkaline Phosphatase 79 Total Protein 5.2 L Albumin 2.8 L Globulin 2.4 Albumin/Globulin Ratio 1.2 PFSH Medical History Claudication of both lower extremities COPD (chronic obstructive pulmonary disease) Hyperlipidemia CAD (coronary artery disease) HTN (hypertension) Surgical History History of heart artery stent Social History household members: none Smoking Status: Current every day smoker alcohol intake: current Discharge Assessment & Plan Assessment and Plan Assessment: 1) Septic shock secondary to E. coli ESBL bacteremia from likely urinary source , presumed prostatitis -present on admission and active. 2) Severe ERVIN, hypotension requiring pressors, thrombocytopenia secondary to #1 above. Present on admission and improved. 3) Elevated lipase in the 700, present on admission and improved. 4) Chronic norovirus, present on admission and active. 5. Severe hypomagnesemia, improved. Plan of Treatment: [facility] Continue IV antibiotics. He was a PICC in place. Infectious Disease at [facility] on October 24. Anticipate an extended course of antibiotics. Twice weekly labs are needed. Discharge Plan Discharge Plan Patient Disposition: SNF Transfer to: [facility] Under care of provider: SNF provider Provider Discharge Comment: 79 M admitted with recurrent ESBL bacteremia. Improving with antibiotics. Infectious disease provider is Dr. Pacheco at [facility]. Recommends 4-6 weeks of antibiotics. 2x weekly CBC, CMP, ESR, CRP, and CK lab testing. For this patient also check Mg levels as they are usually low. Chronic diarrhea and noroviral infection, continue loperamide as needed to control diarrheal symptoms. Discharge orders & Medications Prescriptions: New acetaminophen 325 mg Tablet 650 mg PO Q6H PRN (Reason: Fever/Mild Pain (1-3)) Qty: 60 0RF loperamide 2 mg Capsule 2 mg PO QID PRN (Reason: Diarrhea) Qty: 30 0RF heparin, porcine (PF) 10 unit/mL Syringe 50 unit IV BID Qty: 60 0RF Slow-Mag 71.5 mg Tablet,Delayed Release (Dr/Ec) 64 mg PO TID Qty: 90 0RF meropenem 2 gram recon soln 2 g IV Q8H 28 Days Qty: 74 0RF Continued cyanocobalamin (vitamin B-12) [Vitamin B-12] 100 mcg Tablet 100 mcg PO DAILY Qty: 60 0RF ascorbic acid (vitamin C) [Vitamin C] 500 mg Tablet 500 mg PO BID Qty: 60 0RF lisinopril 10 MG tablet 20 mg PO QDAY Qty: 90 1RF omeprazole 40 mg capsule,delayed release(DR/EC) 40 mg PO DAILY carvedilol 3.125 mg tablet 3.125 mg PO BID midodrine 2.5 mg tablet 2.5 mg PO TID furosemide 20 mg tablet 20 mg PO BID Rx Instructions: patient takes first dose upon waking up, then second dose later in day, depending on errands/needing to leave house, often around 4pm for second dose mirtazapine 7.5 mg tablet 7.5 mg PO BEDTIME potassium chloride 20 mEq tablet extended release 20 meq PO DAILY albuterol sulfate 90 mcg/actuation Hfa Aerosol Inhaler 2 puff INHALATION Q4-6H MDD 4 PRN (Reason: sob) [id number] Tablet 1 tab PO DAILY magnesium chloride 64 mg Tablet,Delayed Release (Dr/Ec) 64 mg PO TID Patient Comments: RX sent by Dr Pacheco @ [facility] infectious dx 09/19/24 patient should hopefully be able to start 09/20 or 09/21 as soon as it's in stock at pharmacy. Completed magnesium oxide (400 mg x 2 tabs) and instructed to change to this new rx for hypomagnesia despite magnesium supplementation. atorvastatin 80 mg tablet 80 mg PO DAILY tamsulosin 0.4 mg capsule 0.4 PO DAILY Follow up/Referrals: Tae Asencio ARNP [Primary Care Provider] - Discharge Health Status Multidrug resistant organism: Other Precautions: Contact Diet/Activity/Treatments Diet: Diet as Tolerated and Regular Liquid consistency: Normal/Thin Food texture: Regular Activity: No restrictions. Special Rehabilitation Services Reason for rehabilitation: Other Visit Report/Discharge Packet Stand Alone Forms: Patient Portal/API Discharge Data Primary Care Provider: Tae Asencio
[2024-10-20 07:52] VITALS: BP 165/90; PULSE 91; RESP 20; O2SAT 98
[2024-10-20 08:21] VITALS: BP 165/90; PULSE 95
[2024-10-20] MEDS: ATORVASTATIN 20 MG TABLET 80 MG PO (08:21)
[2024-10-20] MEDS: MAGNESIUM CHLORIDE 64 MG TABLET PO (08:21)
[2024-10-20] MEDS: POTASSIUM CHLORIDE 20 MEQ TAB PO (08:21)
[2024-10-20] MEDS: PANTOPRAZOLE DR 40 MG TABLET PO (08:21)
[2024-10-20] MEDS: MAGNESIUM SULFATE 4 GM/100 ML PIGGYBACK IV (08:21)
[2024-10-20] MEDS: carvediloL 3.125 MG TABLET PO (08:21)
[2024-10-20] MEDS: TAMSULOSIN 0.4 MG CAPSULE PO (08:21)
[2024-10-20 08:22] VITALS: BP 165/90; PULSE 95
[2024-10-20] MEDS: SODIUM CHLORIDE 0.9% FLUSH 10 ML IV ×2 (08:22→12:18)
[2024-10-20] MEDS: lisinopriL 10 MG TABLET 20 MG PO (08:22)
[2024-10-20 12:00] VITALS: BP 100/60; PULSE 87; RESP 24; TEMP 36.9; O2SAT 94
[2024-10-20 13:57] LABS: Magnesium 2.1 mg/dL (1.6-2.3)
--- NOTE | 2024-10-20 13:59 | PC.NURSE ---
Discharge: Pt agreeable to discharge to SNF rehab at [facility]. PICC to stay in place for antibiotics. Pt able to ambulate in room SBA, able to use urinal at bedside ind. Tolerating meals. Education provided to pt. Facility international account representative transported pt via wheelchair to facility vehicle at approximately 1355. Report called to receiving facility at approximately 1400.
== END 2024-10-20 13:55 | DRG 871 ==
LOC: ED 10-17 04:08 → AC 10-17 04:08 → ICU 10-17 04:30
PROVIDERS: Internal Medicine; Admitting Provider Internal Medicine; Emergency Provider Emergency Medicine; PCP Nurse Practitioner Adult Health; Referring Provider Emergency Medicine; Visit Provider Internal Medicine
DX: A41.51 Sepsis due to Escherichia coli [E. coli] (principal); R65.21 Severe sepsis with septic shock; N17.9 Acute kidney failure, unspecified; Z16.12 Extended spectrum beta lactamase (ESBL) resistance; A08.11 Acute gastroenteropathy due to Norwalk agent; Z66 Do not resuscitate; D69.6 Thrombocytopenia, unspecified; F17.210 Nicotine dependence, cigarettes, uncomplicated; N41.9 Inflammatory disease of prostate, unspecified; Z87.440 Personal history of urinary (tract) infections; I10 Essential (primary) hypertension; E78.5 Hyperlipidemia, unspecified; N40.0 Benign prostatic hyperplasia without lower urinary tract symptoms; J45.909 Unspecified asthma, uncomplicated; R74.8 Abnormal levels of other serum enzymes; E83.42 Hypomagnesemia; J44.9 Chronic obstructive pulmonary disease, unspecified; I25.10 Atherosclerotic heart disease of native coronary artery without angina pectoris; I73.9 Peripheral vascular disease, unspecified; Z88.8 Allergy status to other drugs, medicaments and biological substances
CPT/HCPCS: 36415; 36556; 36569; 71045; 74176; 80048; 80053; 81003; 81015; 82550; 83605; 83690; 83735; 84145; 85007; 85025; 85651; 86140; 87040; 87077; 87086; 87154; 87186; 87507; 87797; 93005; 96361; 96365; 96366; 96367; 96375; 99283; 99291; J1171; J1335; J1642; J1644; J2185; J3475

== ENCOUNTER 2025-01-24 15:17 | Observation (INO) | payer MEDICARE, OTHER, SELFPAY ==
[2024-10-17 05:23] VITALS: BMI 18.6
[2025-01-24] VITALS (23 sets, daily range): BP systolic 75–158; BP diastolic 52–80; PULSE 64–101; RESP 17–26; TEMP 36.7; O2SAT 95–100; BMI 17.0
[2025-01-24 16:10] LABS: Alanine Aminotransferase 16 IU/L (<50); Albumin 4.4 g/dL (3.5-5.0); Albumin Globulin Ratio 1.8 (1.0-2.8); Alkaline Phosphatase 44 U/L (38-126); Blood Urea Nitrogen 46 mg/dL (9-20); Calcium 9.3 mg/dL (8.4-10.2); Carbon Dioxide 20 mmol/L (22-32); Chloride 114 mmol/L (98-107); Estimated Glomerular Filt Rate 49 mL/min (>60); Globulin 2.4 g/dL (1.7-4.1); Glucose 148 mg/dL (70-99); HEMOLYSIS < 15 (0-50); Potassium 5.4 mmol/L (3.4-5.1); Sodium 142 mmol/L (137-145); Total Protein 6.8 g/dL (6.3-8.2)
[2025-01-24 16:11] LABS: Magnesium 0.3 mg/dL (1.6-2.3)
--- NOTE | 2025-01-24 16:20 | EKG_ITS ---
[place] [id number] [place] [id number] Test Date: 2025-01-24 Pat Name: Yzaan Anderson Department: [facility] Room: Gender: Male Box Maker Paperboard: JKU : 1945 Requested By: Order Number: [id number] Reading MD: Elliott Rosa Measurements Intervals [place] Rate: 89 P: 61 [place]: 172 QRS: -70 QRSD: 112 T: 65 QT: 352 QTc: 428 Interpretive Statements Sinus rhythm with frequent premature ventricular complexes Left axis deviation Low voltage QRS Incomplete right bundle branch block Inferior infarct , age undetermined Electronically Signed On 01-28-2025 9:13:35 PDT by Elliott Rosa
--- NOTE | 2025-01-24 17:47 | EKG_ITS ---
[place] [id number] [place] [id number] Test Date: 2025-01-25 Pat Name: Yazan Anderson Department: [facility] Room: A Gender: Male Blister Rust Eradicator: ELISEO : 1945 Requested By: Order Number: [id number] Reading MD: Elliott Rosa Measurements Intervals [place] Rate: 92 P: 68 [place]: 194 QRS: -70 QRSD: 120 T: 79 QT: 350 QTc: 432 Interpretive Statements Sinus rhythm with premature atrial complexes Left axis deviation Right bundle branch block Inferior infarct , age undetermined Electronically Signed On 01-28-2025 9:19:46 PDT by Elliott Rosa
--- NOTE | 2025-01-24 17:58 | ED_ITS ---
HPI - Recheck/Abnormal Lab/Rx <Carlos Gordon MD - Last Filed: 02/15/25 07:28> General Chief Complaint: Recheck/Abnormal Lab/Rx Stated Complaint: sent by infect disease for abnorm blood work Time Seen by Provider: 01/24/25 17:45 Source: patient Mode of arrival: Ambulatory History of Present Illness HPI narrative: 79-year-old man with a history of acute kidney injury, hypomagnesemia, and hyper Maria Teresa media as well as recurrent urinary tract infections referred to the emergency department with suspicion for low magnesium and elevated potassium. These were done an outpatient draws ordered by Dr. Pacheco from Infectious Disease at [facility]. She follows this patient, reportedly he is on fosfomycin once a week for recurrent urinary tract infections. Patient states that he feels fine. He denies fevers chills dysuria nausea or vomiting. He is accompanied by his daughter who confirms this. Patient has diarrhea which he has had for over a year, it is watery diarrhea and his daughter does not suspect C difficile she states that his stool does not have the characteristic C difficile odor. He was admitted here in October of this year with an acute kidney injury and sepsis related to urinary tract infection. Related Data Home Medications ?Medication ?Instructions ?Recorded ?Confirmed albuterol sulfate 90 mcg/actuation 2 puff inhalation Q 4-6H PRN sob 07/30/24 01/24/25 aerosol inhaler carvedilol 3.125 mg tablet 3.125 mg PO BID 07/30/24 furosemide 20 mg tablet 20 mg PO BID 07/30/24 midodrine 2.5 mg tablet 2.5 mg PO TID 07/30/2401/24 mirtazapine 7.5 mg tablet 7.5 mg PO BEDTIME 07/30/24 0 01/24/25 tlvhsbpmtaso-eqmcfpgo-nvhiof tablet 1 tab PO DAILY 02/1301/24/25 omeprazole 40 mg capsule,delayed 40 mg PO DAILY 01/24/25 release atorvastatin 80 mg tablet 80 mg PO DAILY 09/20/2411/13 magnesium chloride 64 mg 64 mg PO TID 09/20/24 (magnesium chloride) tablet,delayed release tamsulosin 0.4 mg capsule 0.4 mg PO DAILY 10/16/2411/13 fluticasone 250 mcg-salmeterol 50 1 ea inhalation BID 01/24/25 01/24/25 mcg/dose blistr powdr for inhalation Previous Rx's ?Medication ?Instructions ?Recorded lisinopril 10 mg tablet 20 mg (2 x 10 mg) PO QDAY #9 0 tabs 08/18/22 acetaminophen 325 mg tablet 650 mg (2 x 325 mg) PO Q6H PRN 10/19/24 Fever/Mild Pain (1-3) #60 tabs loperamide 2 mg capsule 2 mg PO QID PRN Diarrhea #30 caps 10/19/24 magnesium chloride 71.5 mg 64 mg (0.8951 x 71.5 mg) PO TID 10/19/24 (magnesium chloride) #90 tabs tablet,delayed release (Slow-Mag) diphenoxylate-atropine 2.5 1 tab PO DAILY PRN diarrhea #30 01/25/25 mg-0.025 mg tablet (Lomotil) tabs Allergies Allergy/AdvReac Type Severity Reaction Status Date / Time lactose AdvReac Unknown Gastrointestinal Verified 01/24/25 22:46 Upset <Reid Cook MD - Last Filed: 01/25/25 03:33> History of Present Illness HPI narrative: 79-year-old man with a history of acute kidney injury, hypomagnesemia, and hyperkalemia as well as recurrent urinary tract infections referred to the emergency department with suspicion for low magnesium and elevated potassium. These were done an outpatient draws ordered by Dr. Pacheco from Infectious Disease at [facility]. She follows this patient, reportedly he is on fosfomycin once a week for recurrent urinary tract infections. Patient states that he feels fine. He denies fevers chills dysuria nausea or vomiting. He is accompanied by his daughter who confirms this. Patient has diarrhea which he has had for over a year, it is watery diarrhea and his daughter does not suspect C difficile she states that his stool does not have the characteristic C difficile odor. He was admitted here in October of this year with an acute kidney injury and sepsis related to urinary tract infection. Patient History <Carlos Gordon MD - Last Filed: 02/15/25 07:28> Medical History Claudication of both lower extremities COPD (chronic obstructive pulmonary disease) Hyperlipidemia CAD (coronary artery disease) HTN (hypertension) Surgical History History of heart artery stent Social History household members: none Smoking Status: Current every day smoker alcohol intake: current Smoking Status: Current every day smoker tobacco type: cigarettes alcohol intake frequency: 0-2 drinks per day Alcohol type: beer Exam <Carlos Gordon MD - Last Filed: 02/15/25 07:28> Initial Vital Signs Initial Vital Signs: Vital Signs Temperature 98.0 F 01/24/25 15:33 Pulse Rate 91 H 01/24/25 15:33 Respiratory Rate 20 01/24/25 15:33 Blood Pressure 100/54 L 01/24/25 15:33 Pulse Oximetry 100 01/24/25 15:33 Oxygen Delivery Method Room Air 01/24/25 15:33 <Reid Cook MD - Last Filed: 01/25/25 03:33> Narrative Exam Narrative: GENERAL: Well-developed patient, in mild distress. HEAD: Atraumatic. Normocephalic. EYES: Pupils equal round and reactive. Extraocular motions intact. No scleral icterus. No injection or drainage. ENT: Nose without bleeding, purulent drainage. Throat without erythema, tonsillar hypertrophy or exudate. Airway patent. NECK: Trachea midline. Non tender CARDIOVASCULAR: Regular rate and rhythm without murmurs, gallops, or rubs. RESPIRATORY: Clear to auscultation. Breath sounds equal bilaterally. No wheezes, rales, or rhonchi. GASTROINTESTINAL: Abdomen soft, non-tender, nondistended. EXTREMITIES: No edema or joint tenderness. BACK: Nontender without deformity or crepitance. No flank tenderness. NEURO: AOx3. Motor functions grossly nonfocal. SKIN: No rash or erythema of visible areas Initial Vital Signs Initial Vital Signs: Vital Signs Temperature 98.0 F 01/24/25 15:33 Pulse Rate 91 H 01/24/25 15:33 Respiratory Rate 20 01/24/25 15:33 Blood Pressure 100/54 L 01/24/25 15:33 Pulse Oximetry 100 01/24/25 15:33 Oxygen Delivery Method Room Air 01/24/25 15:33 Course <Carlos Gordon MD - Last Filed: 02/15/25 07:28> Orders Ordered: Discontinued Medications Acetaminophen (Acetaminophen 325 Mg Tablet) 650 mg PO Q6H PRN PRN Reason: Fever/Mild Pain (1-3) Albuterol (Albuterol Hfa Mdi 60 Puff/8 Gm Inhaler (Covid Only)) 2 puff INH Q4H PRN PRN Reason: sob Albuterol (Albuterol 2.5 Mg/3 Ml Neb (Adult)) 2.5 mg INH Q4H PRN PRN Reason: sob Carvedilol (Carvedilol 3.125 Mg Tablet) 3.125 mg PO BID [facility] Last Admin: 01/25/25 10:43 Dose: 3.125 mg Documented By: Admin: 01/24/25 20:46 Dose: 3.125 mg Documented By: IVETTE Heparin Sodium (Porcine) (Heparin 5,000 Unit/Ml Vial) 5,000 unit SUBCUT Q12H [facility] Last Admin: 01/25/25 08:33 Dose: 5,000 unit Documented By: Admin: 01/24/25 20:45 Dose: 5,000 unit Documented By: IVETTE Magnesium Sulfate (Magnesium Sulfate) 4 gm in 100 mls @ 25 mls/hr IV NOW ONE Stop: 01/24/25 21:46 Last Infusion: 01/24/25 21:59 Dose: Infused Documented By: IVETTE Co-signed By: JONES Admin: 01/24/25 18:09 Dose: 25 mls/hr Documented By: IVETTE Co-signed By: ANJALI(2) Sodium Chloride (Normal Saline 0.9%) 1,000 mls @ 1,000 mls/hr IV BOLUS ONE Stop: 01/24/25 19:38 Last Infusion: 01/24/25 21:28 Dose: Infused Documented By: Infusion: 01/24/25 19:43 Dose: Infused Documented By: Admin: 01/24/25 18:56 Dose: 1,000 mls/hr Documented By: IVETTE Sodium Chloride (Normal Saline 0.9%) 1,000 mls @ 1,000 mls/hr IV BOLUS ONE Stop: 01/24/25 20:44 Last Infusion: 01/24/25 21:45 Dose: Infused Documented By: Admin: 01/24/25 20:00 Dose: 1,000 mls/hr Documented By: IVETTE Sodium Chloride (Normal Saline 0.9%) 1,000 mls @ 100 mls/hr IV CONT [facility] Last Infusion: 01/25/25 08:42 Dose: 0 mls/hr Documented By: Admin: 01/25/25 08:30 Dose: 100 mls/hr Documented By: ANJALI Loperamide HCl (Loperamide 2 Mg Capsule) 2 mg PO QID PRN PRN Reason: Diarrhea Magnesium Chloride (Magnesium Chloride 64 Mg Tablet) 64 mg PO TID [facility] Last Admin: 01/25/25 10:43 Dose: 64 mg Documented By: Admin: 01/24/25 20:45 Dose: 64 mg Documented By: IVETTE Magnesium Chloride (Magnesium Chloride 64 Mg Tablet) 64 mg PO TID [facility] Last Admin: 01/25/25 10:49 Dose: Not Given Documented By: Admin: 01/24/25 21:37 Dose: Not Given Documented By: IVETTE Mirtazapine (Mirtazapine 15 Mg Tablet) 7.5 mg PO BEDTIME [facility] Last Admin: 01/24/25 20:47 Dose: 7.5 mg Documented By: IVETTE Naloxone HCl (Naloxone 0.4 Mg/Ml Vial) 0.2 mg IV Q2MIN PRN PRN Reason: Opiate Reversal Pantoprazole Sodium (Pantoprazole Dr 40 Mg Tablet) 40 mg PO 0600 [facility] Last Admin: 01/25/25 06:56 Dose: 40 mg Documented By: SEAN Tamsulosin HCl (Tamsulosin 0.4 Mg Capsule) 0.4 mg PO DAILY [facility] Last Admin: 01/25/25 10:44 Dose: 0.4 mg Documented By: STEVE Vital Signs Vital signs: Vital Signs - 8 hr 01/24/25 19:30 01/24/25 19:30 Pulse Rate 82 Respiratory Rate 23 Blood Pressure 104/55 L Pulse Oximetry 96 <Reid Cook MD - Last Filed: 01/25/25 03:33> Orders Ordered: Discontinued Medications Acetaminophen (Acetaminophen 325 Mg Tablet) 650 mg PO Q6H PRN PRN Reason: Fever/Mild Pain (1-3) Albuterol (Albuterol Hfa Mdi 60 Puff/8 Gm Inhaler (Covid Only)) 2 puff INH Q4H PRN PRN Reason: sob Albuterol (Albuterol 2.5 Mg/3 Ml Neb (Adult)) 2.5 mg INH Q4H PRN PRN Reason: sob Carvedilol (Carvedilol 3.125 Mg Tablet) 3.125 mg PO BID [facility] Last Admin: 01/25/25 10:43 Dose: 3.125 mg Documented By: Admin: 01/24/25 20:46 Dose: 3.125 mg Documented By: IVETTE Heparin Sodium (Porcine) (Heparin 5,000 Unit/Ml Vial) 5,000 unit SUBCUT Q12H [facility] Last Admin: 01/25/25 08:33 Dose: 5,000 unit Documented By: Admin: 01/24/25 20:45 Dose: 5,000 unit Documented By: IVETTE Magnesium Sulfate (Magnesium Sulfate) 4 gm in 100 mls @ 25 mls/hr IV NOW ONE Stop: 01/24/25 21:46 Last Infusion: 01/24/25 21:59 Dose: Infused Documented By: IVETTE Co-signed By: JONES Admin: 01/24/25 18:09 Dose: 25 mls/hr Documented By: IVETTE Co-signed By: ANJALI(2) Sodium Chloride (Normal Saline 0.9%) 1,000 mls @ 1,000 mls/hr IV BOLUS ONE Stop: 01/24/25 19:38 Last Infusion: 01/24/25 21:28 Dose: Infused Documented By: Infusion: 01/24/25 19:43 Dose: Infused Documented By: Admin: 01/24/25 18:56 Dose: 1,000 mls/hr Documented By: IVETTE Sodium Chloride (Normal Saline 0.9%) 1,000 mls @ 1,000 mls/hr IV BOLUS ONE Stop: 01/24/25 20:44 Last Infusion: 01/24/25 21:45 Dose: Infused Documented By: Admin: 01/24/25 20:00 Dose: 1,000 mls/hr Documented By: IVETTE Sodium Chloride (Normal Saline 0.9%) 1,000 mls @ 100 mls/hr IV CONT LEE Last Infusion: 01/25/25 08:42 Dose: 0 mls/hr Documented By: Admin: 01/25/25 08:30 Dose: 100 mls/hr Documented By: ANJALI Loperamide HCl (Loperamide 2 Mg Capsule) 2 mg PO QID PRN PRN Reason: Diarrhea Magnesium Chloride (Magnesium Chloride 64 Mg Tablet) 64 mg PO TID [facility] Last Admin: 01/25/25 10:43 Dose: 64 mg Documented By: Admin: 01/24/25 20:45 Dose: 64 mg Documented By: IVETTE Magnesium Chloride (Magnesium Chloride 64 Mg Tablet) 64 mg PO TID [facility] Last Admin: 01/25/25 10:49 Dose: Not Given Documented By: Admin: 01/24/25 21:37 Dose: Not Given Documented By: HOWIE Mirtazapine (Mirtazapine 15 Mg Tablet) 7.5 mg PO BEDTIME [facility] Last Admin: 01/24/25 20:47 Dose: 7.5 mg Documented By: IVETTE Naloxone HCl (Naloxone 0.4 Mg/Ml Vial) 0.2 mg IV Q2MIN PRN PRN Reason: Opiate Reversal Pantoprazole Sodium (Pantoprazole Dr 40 Mg Tablet) 40 mg PO 0600 [facility] Last Admin: 01/25/25 06:56 Dose: 40 mg Documented By: SEAN Tamsulosin HCl (Tamsulosin 0.4 Mg Capsule) 0.4 mg PO DAILY [facility] Last Admin: 01/25/25 10:44 Dose: 0.4 mg Documented By: STEVE Vital Signs Vital signs: Vital Signs - 8 hr 01/24/25 19:30 01/24/25 19:30 Pulse Rate 82 Respiratory Rate 23 Blood Pressure 104/55 L Pulse Oximetry 96 MDM - Recheck/Abnormal Lab/Rx <Carlos Gordon MD - Last Filed: 02/15/25 07:28> Lab Data 01/25/25 06:30 01/25/25 06:30 Labs: Lab Results 01/24/25 Range/Units 15:48 WBC 6.0 (4.5-11.0) X10^3/uL RBC 3.55 L (4.5-5.9) X10^6/uL Hgb 11.4 L (13.5-17.5) g/dL Hct 33.1 L (41-53) % MCV 93.3 (80-100) fL MCH 32.0 (26-34) PG MCHC 34.3 (30-36) % RDW 23.1 H (11.6-14.8) % Plt Count 234 (150-400) X10^3/uL Neut % (Auto) 71.4 (50-75) % Lymph % (Auto) 17.9 L (25-40) % [place] % (Auto) 6.8 (3-14) % Eos % (Auto) 2.6 (2-4) % Baso % (Auto) 1.3 (0-2) % Neut # (Auto) 4300 (4809-4992) /uL Lymph # (Auto) 1100 (8638-0872) /uL [place] # (Auto) 400 (0-900) /uL Eos # (Auto) 200 (0-450) /uL Baso # (Auto) 100 (0-100) /uL Platelet Estimate Adequate on smear RBC Morphology See below Poikilocytosis 1+ H Anisocytosis 1+ H Ovalocytes 1+ H Sodium 142 (137-145) mmol/L Potassium 5.4 H (3.4-5.1) mmol/L Chloride 114 H (98-107) mmol/L Carbon Dioxide 20 L (22-32) mmol/L BUN 46 H (9-20) mg/dL Creatinine 1.45 H (0.66-1.25) mg/dL Estimated GFR 49 L (>60) mL/min BUN/Creatinine Ratio 31.7 H (6-22) Glucose 148 H (70-99) mg/dL Lactate 1.1 (0.7-2.1) mmol/L Calcium 9.3 (8.4-10.2) mg/dL Magnesium 0.3 L* (1.6-2.3) mg/dL Total Bilirubin 0.3 (0.2-1.3) mg/dL AST 22 (17-59) IU/L ALT 16 (<50) IU/L Alkaline Phosphatase 44 (38-126) U/L Total Protein 6.8 (6.3-8.2) g/dL Albumin 4.4 (3.5-5.0) g/dL Globulin 2.4 (1.7-4.1) g/dL Albumin/Globulin Ratio 1.8 (1.0-2.8) <Reid Cook MD - Last Filed: 01/25/25 03:33> Lab Data Attestation: I reviewed the patient's lab results. Labs: Lab Results 01/24/25 Range/Units 15:48 WBC 6.0 (4.5-11.0) X10^3/uL RBC 3.55 L (4.5-5.9) X10^6/uL Hgb 11.4 L (13.5-17.5) g/dL Hct 33.1 L (41-53) % MCV 93.3 (80-100) fL MCH 32.0 (26-34) PG MCHC 34.3 (30-36) % RDW 23.1 H (11.6-14.8) % Plt Count 234 (150-400) X10^3/uL Neut % (Auto) 71.4 (50-75) % Lymph % (Auto) 17.9 L (25-40) % [place] % (Auto) 6.8 (3-14) % Eos % (Auto) 2.6 (2-4) % Baso % (Auto) 1.3 (0-2) % Neut # (Auto) 4300 (8600-5894) /uL Lymph # (Auto) 1100 (8923-3946) /uL [place]on # (Auto) 400 (0-900) /uL Eos # (Auto) 200 (0-450) /uL Baso # (Auto) 100 (0-100) /uL Platelet Estimate Adequate on smear RBC Morphology See below Poikilocytosis 1+ H Anisocytosis 1+ H Ovalocytes 1+ H Sodium 142 (137-145) mmol/L Potassium 5.4 H (3.4-5.1) mmol/L Chloride 114 H (98-107) mmol/L Carbon Dioxide 20 L (22-32) mmol/L BUN 46 H (9-20) mg/dL Creatinine 1.45 H (0.66-1.25) mg/dL Estimated GFR 49 L (>60) mL/min BUN/Creatinine Ratio 31.7 H (6-22) Glucose 148 H (70-99) mg/dL Lactate 1.1 (0.7-2.1) mmol/L Calcium 9.3 (8.4-10.2) mg/dL Magnesium 0.3 L* (1.6-2.3) mg/dL Total Bilirubin 0.3 (0.2-1.3) mg/dL AST 22 (17-59) IU/L ALT 16 (<50) IU/L Alkaline Phosphatase 44 (38-126) U/L Total Protein 6.8 (6.3-8.2) g/dL Albumin 4.4 (3.5-5.0) g/dL Globulin 2.4 (1.7-4.1) g/dL Albumin/Globulin Ratio 1.8 (1.0-2.8) ECG Data Attestation: I personally reviewed and interpreted this ECG as follows: Interpretation: 1633, normal sinus rhythm with rate of 89. Incomplete right bundle branch block noted. SC 172, QRS 112, QTC 428. MDM Narrative Medical decision making narrative: 01/24/25, 1829, Joey. Sign-out from Dr. Gordon, see his H&P, labs pending. Also obtained history from phone call-in from his infectious disease provider Dr. Caraballo at [facility]. 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 Sent here for further evaluation and treatment. IV fluid bolus for hypotension, ERVIN, likely prerenal. That should help his hyperkalemia 5.4 that is mild. IV magnesium repletion orders have been initiated. Consider admission, patient willing. We will contact hospitalist. 194, case discussed with hospitalist Dr. Pike who requests and additional IV fluid bolus, and accepts patient for admission. Critical Care Time <Reid Cook MD - Last Filed: 01/25/25 03:33> Critical Care Time Critical Care Time: Yes Total Critical Care Time: 35 Attestation: The high probability of a clinically significant, sudden or life threatening deterioration of the [gastrointestinal, metabolic, renal] system(s) required my full and direct attention, intervention and personal management. The aggregate critical care time was [35] minutes. This time is in addition to time spent performing reported procedures but includes the following: [x] Data Review and interpretation [x] Patient assessment and monitoring of vital signs [x] Documentation [x] Medication orders and management Discharge Plan Departure Patient Disposition: Admitted as Observation Clinical Impression: Diarrhea, ERVIN (acute kidney injury), Hypomagnesemia, Hyperkalemia, Hypotension Admit Date/Time: 01/24/25 19:46 Admit Provider: Angel Sanches
[2025-01-24 18:00] LABS: Lactate (Lactic Acid) 1.1 mmol/L (0.7-2.1)
[2025-01-24] MEDS: MAGNESIUM SULFATE 4 GM/100 ML PIGGYBACK IV (18:09)
[2025-01-24 18:48] LABS: Add Manual Diff / Slide Review NO; Hematocrit 33.1 % (41-53); Hemoglobin 11.4 g/dL (13.5-17.5); Lymphocytes Absolute Auto 1100 /uL (1100-4500); Mean Corpuscular HGB Conc 34.3 % (30-36); Mean Corpuscular Hemoglobin 32.0 PG (26-34); Mean Corpuscular Volume 93.3 fL (80-100); Platelet Count 234 X10^3/uL (150-400)
[2025-01-24] MEDS: SODIUM CHLORIDE 0.9% 1,000 ML 1000 ML IV ×2 (18:56→20:00)
[2025-01-24 19:55] LABS: Ovalocytes 1+; Poikilocytosis 1+
[2025-01-24 19:56] LABS: Anisocytosis 1+
--- NOTE | 2025-01-24 20:10 | PM.HP.1 ---
History of Present Illness History of Present Illness Chief complaint: sent by infect disease for abnorm blood work Narrative: 79-year-old man with a history of CAD, HLD, HTN, COPD, CKD, chronic hypomagnesemia from chronic diarrhea, recurrent urinary tract infections, referred to the emergency department with low magnesium and elevated potassium. These were done an outpatient draws ordered by Dr. Pacheco from Infectious Disease at [facility]. She follows this patient, reportedly he is on fosfomycin once a week for recurrent urinary tract infections. Patient states that he feels fine. He denies fevers chills dysuria nausea or vomiting. In the ED K mildly elevated and Mg very low. [facility] Medical History Claudication of both lower extremities COPD (chronic obstructive pulmonary disease) Hyperlipidemia CAD (coronary artery disease) HTN (hypertension) Surgical History History of heart artery stent Social History household members: none Smoking Status: Current every day smoker alcohol intake: current Meds Home Medications and Allergies Home Medications ?Medication ?Instructions ?Recorded ?Confirmed ?Type lisinopril 10 mg tablet 20 mg (2 x 10 mg) PO QDAY #90 tabs 08/18/22 01/24/25 Rx albuterol sulfate 90 mcg/actuation 2 puff inhalation Q4-6H PRN sob 07/30/24 01/24/25 History aerosol inhaler carvedilol 3.125 mg tablet 3.125 mg PO BID 07/30/24 01/24/25 History furosemide 20 mg tablet 20 mg PO BID 07/30/24 01/24/25 History midodrine 2.5 mg tablet 2.5 mg PO TID 07/30/24 01/24/25 History mirtazapine 7.5 mg tablet 7.5 mg PO BEDTIME 07/30/24 01/24/25 History unwqckglbnqr-miusbovh-trkqya tablet 1 tab PO DAILY 07/30/24 01/24/25 History omeprazole 40 mg capsule,delayed 40 mg PO DAILY 07/30/24 01/24/25 History release atorvastatin 80 mg tablet 80 mg PO DAILY 09/20/24 01/24/25 History magnesium chloride 64 mg 64 mg PO TID 09/20/24 01/24/25 History (magnesium chloride) tablet,delayed release tamsulosin 0.4 mg capsule 0.4 mg PO DAILY 10/16/24 01/24/25 History acetaminophen 325 mg tablet 650 mg (2 x 325 mg) PO Q6H PRN 10/19/24 01/24/25 Rx Fever/Mild Pain (1-3) #60 tabs loperamide 2 mg capsule 2 mg PO QID PRN Diarrhea #30 caps 10/19/24 01/24/25 Rx magnesium chloride 71.5 mg 64 mg (0.8951 x 71.5 mg) PO TID 10/19/24 01/24/25 Rx (magnesium chloride) #90 tabs tablet,delayed release (Slow-Mag) fluticasone 250 mcg-salmeterol 50 1 ea inhalation BID 01/24/25 01/24/25 History mcg/dose blistr powdr for inhalation Allergies Allergy/AdvReac Type Severity Reaction Status Date / Time lactose AdvReac Unknown Gastrointestinal Verified 01/24/25 22:46 Upset Review of Systems Review of Systems Narrative: General - w/o fever or chills CVS - w/o chest pain RS - chronic shortness of breath GI - chronic diarrhea UG - w/o dysuria Exam Vital Signs (past 8 hours): - 01/24/25 15:33 01/24/25 16:25 01/24/25 16:27 Temperature 98.0 F Pulse Rate 91 H 82 Respiratory Rate 20 24 Blood Pressure 100/54 L 109/61 Pulse Oximetry 100 95 Oxygen Delivery Method Room Air 01/24/25 16:27 01/24/25 16:30 01/24/25 16:30 Temperature Pulse Rate 76 88 Respiratory Rate 26 H 25 H Blood Pressure 98/62 Pulse Oximetry 98 99 Oxygen Delivery Method 01/24/25 17:00 01/24/25 17:00 01/24/25 17:02 Temperature Pulse Rate 92 H 100 H Respiratory Rate 17 18 Blood Pressure 75/53 L Pulse Oximetry 97 98 Oxygen Delivery Method 01/24/25 17:02 01/24/25 17:30 01/24/25 17:30 Temperature Pulse Rate 82 Respiratory Rate 23 Blood Pressure 87/56 L 81/52 L Pulse Oximetry 97 Oxygen Delivery Method 01/24/25 18:00 01/24/25 18:00 01/24/25 18:30 Temperature Pulse Rate 75 76 Respiratory Rate 23 24 Blood Pressure 92/56 L Pulse Oximetry 97 96 Oxygen Delivery Method Room Air 01/24/25 18:30 01/24/25 19:00 01/24/25 19:00 Temperature Pulse Rate 76 Respiratory Rate 23 Blood Pressure 97/56 L 96/55 L Pulse Oximetry 97 Oxygen Delivery Method 01/24/25 19:30 01/24/25 19:30 Temperature Pulse Rate 82 Respiratory Rate 23 Blood Pressure 104/55 L Pulse Oximetry 96 Oxygen Delivery Method Oxygen Delivery Method Room Air Narrative Exam Narrative: General - in no distress HEENT - normocephalic RS - decreased airflow b/l CVS - RRR GI - w/o distension Neuro - w/o deficits Objective ECG Impression: NSR with PACs Imaging Chest x-ray: Radiologist's impression: Left-sided PICC line tip is in SVC. No focal infiltrate, pleural effusion or pneumothorax. Labs 01/24/25 15:48 01/24/25 15:48 Labs: Laboratory Results - last 24 hr 01/24/25 15:48 WBC 6.0 RBC 3.55 L Hgb 11.4 L Hct 33.1 L MCV 93.3 MCH 32.0 MCHC 34.3 RDW 23.1 H Plt Count 234 Neut % (Auto) 71.4 Lymph % (Auto) 17.9 L [place] % (Auto) 6.8 Eos % (Auto) 2.6 Baso % (Auto) 1.3 Neut # (Auto) 4300 Lymph # (Auto) 1100 [place] # (Auto) 400 Eos # (Auto) 200 Baso # (Auto) 100 Platelet Estimate Adequate on smear RBC Morphology See below Poikilocytosis 1+ H Anisocytosis 1+ H Ovalocytes 1+ H Sodium 142 Potassium 5.4 H Chloride 114 H Carbon Dioxide 20 L BUN 46 H Creatinine 1.45 H Estimated GFR 49 L BUN/Creatinine Ratio 31.7 H Glucose 148 H Lactate 1.1 Calcium 9.3 Magnesium 0.3 L* Total Bilirubin 0.3 AST 22 ALT 16 Alkaline Phosphatase 44 Total Protein 6.8 Albumin 4.4 Globulin 2.4 Albumin/Globulin Ratio 1.8 Assessment & Plan Assessment and plan (1) Hypotension: Status: Acute (2) Hyperkalemia: Status: Acute (3) Hypomagnesemia: Status: Acute (4) ERVIN (acute kidney injury): Status: Acute Assessment & Plan narrative: Hypotension / ERVIN - likely from diarrhea - IVFs - monitored BMP Hypomagnesemia - 4 g MgS in ED - continue PO Mg - it is rarely above 1 Hyperkalemia - minor - BMP monitored GERD - PPI COPD - albuterol DVT prophylaxis - heparin Patient consented to telemedicine, audio-visual encounter with RN assisting with the exam. Patient located at [facility], provider located in [place]. Time-Based Coding :: [TOTAL MINUTES] spent with patient and on the chart (including review of chart, obtaining history, exam, reviewing outside data, placing orders, documenting exam and treatment plan, and counseling patient) on [DATE].
[2025-01-24 20:34] LABS: Appearance Urine UA CLEAR; Bilirubin Urine UA NEGATIVE (NEGATIVE); Color Urine UA YELLOW; Glucose Urine UA NEGATIVE (Negative); Ketones Urine UA NEGATIVE (NEGATIVE); Leukocyte Esterase Urine UA NEGATIVE (NEGATIVE); Nitrite Urine UA NEGATIVE (Negative); Occult Blood Urine UA NEGATIVE (Negative); Protein Urine UA NEGATIVE (Negative); Specific Gravity Urine UA 1.015 (1.000-1.035); Urobilinogen Urine UA 0.2 E.U./dL (0.2); pH Urine UA 5.5 (4.5-8.0)
[2025-01-24 20:41] LABS: Culture Indicated Urine Cult Not Indicated
[2025-01-24] MEDS: MAGNESIUM CHLORIDE 64 MG TABLET PO (20:45)
[2025-01-24] MEDS: HEPARIN 5,000 UNIT/ML VIAL 5000 UNIT SUBCUT (20:45)
[2025-01-24] MEDS: MIRTAZAPINE 15 MG TABLET 7.5 MG PO (20:47)
--- NOTE | 2025-01-24 23:54 | PC.NURSE ---
requested Dr. Alonso with hospitalist team order Mg recheck 1hr post infusion, advised he would complete order in future. RN assuming care notified.
[2025-01-25] VITALS (23 sets, daily range): BP systolic 110–152; BP diastolic 58–71; PULSE 63–94; RESP 10–25; TEMP 36.1–37.1; O2SAT 95–99
[2025-01-25 01:25] LABS: Magnesium 1.9 mg/dL (1.6-2.3)
[2025-01-25 06:50] LABS: Add Manual Diff / Slide Review NO; Hematocrit 28.6 % (41-53); Hemoglobin 10.0 g/dL (13.5-17.5); Lymphocytes Absolute Auto 900 /uL (1100-4500); Mean Corpuscular HGB Conc 35.0 % (30-36); Mean Corpuscular Hemoglobin 32.0 PG (26-34); Mean Corpuscular Volume 91.6 fL (80-100); Platelet Count 204 X10^3/uL (150-400)
[2025-01-25] MEDS: PANTOPRAZOLE DR 40 MG TABLET PO (06:56)
[2025-01-25 07:05] LABS: Anisocytosis 2+; Ovalocytes 1+; Poikilocytosis 1+
[2025-01-25 07:07] LABS: Blood Urea Nitrogen 32 mg/dL (9-20); Calcium 8.9 mg/dL (8.4-10.2); Carbon Dioxide 19 mmol/L (22-32); Chloride 117 mmol/L (98-107); Estimated Glomerular Filt Rate > 60 mL/min (>60); Glucose 93 mg/dL (70-99); HEMOLYSIS < 15 (0-50); Magnesium 1.6 mg/dL (1.6-2.3); Potassium 4.5 mmol/L (3.4-5.1); Sodium 142 mmol/L (137-145)
[2025-01-25] MEDS: SODIUM CHLORIDE 0.9% 1,000 ML 100 ML IV (08:30)
[2025-01-25] MEDS: HEPARIN 5,000 UNIT/ML VIAL 5000 UNIT SUBCUT (08:33)
--- NOTE | 2025-01-25 08:43 | PC.NURSE ---
Continuous NS 0.9 fluids running 100ml\hr at time of d/c from ED to AC floor
--- NOTE | 2025-01-25 08:55 | PC.NURSE ---
Admit note: Patient arrived to room 218 via gurney from ED. Awake and alert, ambulated with nurse on Standby to BR. VSS, afebrile and RA 95%. Sitting up bed with breakfast tray, independent ADLs. Oriented to room, environment and plan of care. Bed alarm active, call light within reach.
[2025-01-25] MEDS: MAGNESIUM CHLORIDE 64 MG TABLET PO (10:43)
[2025-01-25] MEDS: TAMSULOSIN 0.4 MG CAPSULE PO (10:44)
--- NOTE | 2025-01-25 10:44 | DIET.CONS ---
Dietary Consultation Note Admission Date: 01/24/2025 19:46 Assessment: 79 y M admitted for ERVIN, Hypomagnesemia. Dietitian screened for BMI and previous hx of severe malnutrition. Met with pt at bedside. Reports continued ongoing diarrhea and low appetite, unchanged from last admission. Nutrition focused physical exam: -Severe muscle mass loss temples, deltoid, pectoralis major, trapezius -Moderate to severe subcutaneous fat loss (buccal and orbital fat pads) Ht: 177.8 cm Wt: 53.977 kg BMI: 17.0 UBW: 57 kg on 10/20/24 (-5% weight loss in 3 months, non-severe) 54.5 kg on 09/11/24, 56 kg on 07/30/24, during previous admissions pt reported 65 kg as UBW 1 yr ago Last BM: 01/24/25 (01/24/25 22:52) MNA: 11 Liborio Score: 20 Diet: 01/25/25 Breakfast Heart Healthy Diet Diet Modifications: Sodium Level: 2 gm Sodium Food Texture: Level 7 - Regular Liquid Consistency: Level 0 - Thin Nutrition Percent Meal Consumed 75% 01/25/25 09:00 Labs: RBC 3.12 X10^6/uL (4.5-5.9) L 01/25/25 06:30 Hgb 10.0 g/dL (13.5-17.5) L 01/25/25 06:30 Hct 28.6 % (41-53) L 01/25/25 06:30 Creatinine 0.95 mg/dL (0.66-1.25) 01/25/25 06:30 Lactate 1.1 mmol/L (0.7-2.1) 01/24/25 15:48 Nutrition Diagnosis: Severe chronic Protein Calorie Malnutrition r/t inadequate oral intake as evidenced by <50% of estimated energy intake >6 months per diet recall, severe muscle mass wasting (temples, deltoid), BMI severely underweight for age (17.0). Interventions: -Ensure clear TID, doesn't tolerate regular Ensure r/t GI upset/lactose intolerance -Soft and bite sized diet, adjusted per pt having no teeth EER: 1850 kcals (35 kcals per kg per BMI) 80 g protein (1.5 g/kg per PCM) Monitoring/Evaluations: po intakes, diet tolerance Electronically Signed by: Roxane Reyna 01/25/25 10:44 Clinical Dietitian [address] [id number]
--- NOTE | 2025-01-25 12:10 | P.DS_ITS ---
History of Present Illness History of Present Illness Date Patient Seen: 01/25/25 Chief complaint: sent by infect disease for abnorm blood work Narrative: Chief complaint: Diarrhea with electrolyte abnormalities History of present illness: 01/24: 79-year-old man with a history of CAD, HLD, HTN, COPD, CKD, chronic hypomagnesemia from chronic diarrhea, recurrent urinary tract infections, referred to the emergency department with low magnesium and elevated potassium. These were done an outpatient draws ordered by Dr. Pacheco from Infectious Disease at [facility]. She follows this patient, reportedly he is on fosfomycin once a week for recurrent urinary tract infections. Patient states that he feels fine. He denies fevers chills dysuria nausea or vomiting. In the ED K mildly elevated and Mg very low. Hospital course: 01/25: All diarrhea stopped electrolytes corrected magnesium creatinine to 1.6 BUN creatinine 32 and 0.9 and potassium de-escalated to 4.5 patient prescribed Lomotil 25 minutes were involved in discharging this patient including [id number] evaluation examination and review of objective laboratory findings Discharge Providers Provider Date of admission: 01/24/25 19:46 Discharge Date: 01/25/25 Primary care physician: LINH Freitas Discharge provider: Jeremiah Scott MD Exam Vital Signs (past 8 hours): - 01/25/25 04:30 01/25/25 05:00 01/25/25 05:30 Temperature Pulse Rate 74 63 91 H Respiratory Rate 19 19 25 H Blood Pressure Pulse Oximetry 95 97 97 Oxygen Delivery Method 01/25/25 06:27 01/25/25 06:30 01/25/25 06:59 Temperature Pulse Rate 94 H 77 84 Respiratory Rate 21 22 23 Blood Pressure Pulse Oximetry 97 96 96 Oxygen Delivery Method 01/25/25 06:59 01/25/25 07:00 01/25/25 07:30 Temperature Pulse Rate 83 69 Respiratory Rate 20 19 Blood Pressure 110/58 L Pulse Oximetry 97 95 Oxygen Delivery Method 01/25/25 08:00 01/25/25 08:00 01/25/25 08:30 Temperature Pulse Rate 63 87 Respiratory Rate 17 20 Blood Pressure 152/68 H Pulse Oximetry 99 97 Oxygen Delivery Method 01/25/25 08:50 01/25/25 08:51 Temperature 96.9 F L Pulse Rate 68 Respiratory Rate 16 Blood Pressure 141/68 H Pulse Oximetry 95 95 Oxygen Delivery Method Room Air Oxygen Delivery Method Room Air Oxygen Flow Rate 0 Objective Labs 01/25/25 06:30 01/25/25 06:30 Labs: Laboratory Results - last 24 hr 01/24/25 01/24/25 01/25/25 15:48 20:10 01:10 WBC 6.0 RBC 3.55 L Hgb 11.4 L Hct 33.1 L MCV 93.3 MCH 32.0 MCHC 34.3 RDW 23.1 H Plt Count 234 Neut % (Auto) 71.4 Lymph % (Auto) 17.9 L [place] % (Auto) 6.8 Eos % (Auto) 2.6 Baso % (Auto) 1.3 Neut # (Auto) 4300 Lymph # (Auto) 1100 [place] # (Auto) 400 Eos # (Auto) 200 Baso # (Auto) 100 Platelet Estimate Adequate on smear RBC Morphology See below Poikilocytosis 1+ H Anisocytosis 1+ H Ovalocytes 1+ H Sodium 142 Potassium 5.4 H Chloride 114 H Carbon Dioxide 20 L BUN 46 H Creatinine 1.45 H Estimated GFR 49 L BUN/Creatinine Ratio 31.7 H Glucose 148 H Lactate 1.1 Calcium 9.3 Magnesium 0.3 L* 1.9 Total Bilirubin 0.3 AST 22 ALT 16 Alkaline Phosphatase 44 Total Protein 6.8 Albumin 4.4 Globulin 2.4 Albumin/Globulin Ratio 1.8 Urine Color Yellow Urine Appearance Clear Urine pH 5.5 Ur Specific [place] 1.015 Urine Protein Negative Urine Glucose (UA) Negative Urine Ketones Negative Urine Occult Blood Negative Urine Nitrate Negative Urine Bilirubin Negative Urine Urobilinogen 0.2 Ur Leukocyte Esterase Negative Urine RBC None seen Urine WBC 0-1/hpf Ur Squamous Epith Cells 0-1 /hpf Urine Bacteria None seen Ur Culture Indicated? Cult not indicated Vol Urine Centrifuged 10ml (spun) 01/25/25 06:30 WBC 5.2 RBC 3.12 L Hgb 10.0 L Hct 28.6 L MCV 91.6 MCH 32.0 MCHC 35.0 RDW 23.7 H Plt Count 204 Neut % (Auto) 67.7 Lymph % (Auto) 17.9 L [place] % (Auto) 9.6 Eos % (Auto) 3.5 Baso % (Auto) 1.3 Neut # (Auto) 3500 Lymph # (Auto) 900 L [place] # (Auto) 500 Eos # (Auto) 200 Baso # (Auto) 100 Platelet Estimate RBC Morphology See below Poikilocytosis 1+ H Anisocytosis 2+ H Ovalocytes 1+ H Sodium 142 Potassium 4.5 Chloride 117 H Carbon Dioxide 19 L BUN 32 H Creatinine 0.95 Estimated GFR > 60 BUN/Creatinine Ratio 33.7 H Glucose 93 Lactate Calcium 8.9 Magnesium 1.6 Total Bilirubin AST ALT Alkaline Phosphatase Total Protein Albumin Globulin Albumin/Globulin Ratio Urine Color Urine Appearance Urine pH Ur Specific [place] Urine Protein Urine Glucose (UA) Urine Ketones Urine Occult Blood Urine Nitrate Urine Bilirubin Urine Urobilinogen Ur Leukocyte Esterase Urine RBC Urine WBC Ur Squamous Epith Cells Urine Bacteria Ur Culture Indicated? Vol Urine Centrifuged [facility] Medical History Claudication of both lower extremities COPD (chronic obstructive pulmonary disease) Hyperlipidemia CAD (coronary artery disease) HTN (hypertension) Surgical History History of heart artery stent Social History household members: none Smoking Status: Current every day smoker alcohol intake: current Discharge Plan Discharge Plan Patient Disposition: Home Discharge orders & Medications Prescriptions: New diphenoxylate-atropine [Lomotil] 2.5-0.025 mg tablet 1 tab PO DAILY PRN (Reason: diarrhea) Qty: 30 0RF Continued lisinopril 10 MG tablet 20 mg PO QDAY Qty: 90 1RF omeprazole 40 mg capsule,delayed release(DR/EC) 40 mg PO DAILY carvedilol 3.125 mg tablet 3.125 mg PO BID midodrine 2.5 mg tablet 2.5 mg PO TID furosemide 20 mg tablet 20 mg PO BID Rx Instructions: patient takes first dose upon waking up, then second dose later in day, depending on errands/needing to leave house, often around 4pm for second dose mirtazapine 7.5 mg tablet 7.5 mg PO BEDTIME albuterol sulfate 90 mcg/actuation Hfa Aerosol Inhaler 2 puff INHALATION Q4-6H MDD 4 PRN (Reason: sob) [id number] Tablet 1 tab PO DAILY magnesium chloride 64 mg Tablet,Delayed Release (Dr/Ec) 64 mg PO TID Patient Comments: RX sent by Dr Pacheco @ [facility] infectious dx 09/19/24 patient should hopefully be able to start 09/20 or 09/21 as soon as it's in stock at pharmacy. Completed magnesium oxide (400 mg x 2 tabs) and instructed to change to this new rx for hypomagnesia despite magnesium supplementation. atorvastatin 80 mg tablet 80 mg PO DAILY fluticasone propion-salmeterol 250-50 mcg/dose blister with device 1 ea inhalation BID tamsulosin 0.4 mg capsule 0.4 mg PO DAILY acetaminophen 325 mg Tablet 650 mg PO Q6H PRN (Reason: Fever/Mild Pain (1-3)) Qty: 60 0RF loperamide 2 mg Capsule 2 mg PO QID PRN (Reason: Diarrhea) Qty: 30 0RF Slow-Mag 71.5 mg Tablet,Delayed Release (Dr/Ec) 64 mg PO TID Qty: 90 0RF Follow up/Referrals: Tae Asencio ARNP [Primary Care Provider, Nursing] Visit Report/Discharge Packet Stand Alone Forms: Patient Portal/API, Stroke Signs & Symptoms Discharge Data Primary Care Provider: Tae Asencio Attending Provider: Angel Sanches Admit Date/Time: 01/24/25 19:46
--- NOTE | 2025-01-25 13:46 | PC.NURSE ---
Pt ready to d/c to home. D/C instructions reviewed and understood. RX has been esent. Pt voiced no complaint
== END 2025-01-25 13:30 | disposition home or self-care (01) ==
LOC: ED 18:40 → AC 19:47
PROVIDERS: Emergency Medicine; Admitting Provider Internal Medicine; Emergency Provider Emergency Medicine; PCP Nurse Practitioner Adult Health; Referring Provider Emergency Medicine; Visit Provider Internal Medicine
DX: E87.5 Hyperkalemia (principal); E83.42 Hypomagnesemia; I95.9 Hypotension, unspecified; N17.9 Acute kidney failure, unspecified; R19.7 Diarrhea, unspecified; N39.0 Urinary tract infection, site not specified; J44.9 Chronic obstructive pulmonary disease, unspecified; E78.5 Hyperlipidemia, unspecified; I25.10 Atherosclerotic heart disease of native coronary artery without angina pectoris; I12.9 Hypertensive chronic kidney disease with stage 1 through stage 4 chronic kidney disease, or unspecified chronic kidney disease; N18.9 Chronic kidney disease, unspecified; K21.9 Gastro-esophageal reflux disease without esophagitis; F17.210 Nicotine dependence, cigarettes, uncomplicated; Z95.818 Presence of other cardiac implants and grafts
CPT/HCPCS: 36415; 80048; 80053; 81001; 81003; 83605; 83735; 85025; 87086; 93005; 96365; 96366; 96372; 99284; 99291; G0378; A9270; J1644; J3475